=== PATIENT | male | born 1960 | race Two or more races ===

== ENCOUNTER 2025-03-28 17:24 | Inpatient (IN) | payer MEDICARE, SELFPAY ==
[2025-03-28] VITALS (7 sets, daily range): BP systolic 133–160; BP diastolic 76–98; PULSE 77–118; RESP 16–18; TEMP 36.3–37.1; O2SAT 94–97; BMI 31.2
--- NOTE | ~2025-03-28 | CT_ITS ---
CLINICAL HISTORY: L sided neck pain, severe odynophagia. CT soft tissue neck with contrast Comparison: None Findings: Fluid in the left carotid space is nonspecific. Differential considerations include fluid from adjacent vasculitis or thrombophlebitis. No definite adjacent venous thrombus defined by CT at this time. Additional adjacent fluid likely reflects cellulitis including deep and superficial to left platysma. Mild fasciitis also considered given mild thickening of the left-sided platysma. Mild soft tissue fullness of the imaged nasopharynx and oropharynx are nonspecific and may reflect cellulitis and/or pharyngitis. Otherwise, no exophytic mass of the imaged aerodigestive tract. No drainable parapharyngeal abscess by CT at this time. Severe opacification of multiple ethmoid air cells and essentially opacification of the maxillary sinuses. Differential considerations include acute on chronic sinusitis with bony remodeling and multifocal bone resorption. Bilateral nasal bone fractures appear old with anterior blunting. Imaged nasal septum fracture also old. Occlusion of the paranasal sinus outflows by CT. Trace right mastoid effusion. Metal artifacts from mouth noted. Calcified and noncalcified plaque include imaged aorta and its branches. Mild scarring in motion of the imaged lung apices. Mild left pleural thickening in the [id number]. Multiple bilateral cervical lymph nodes are nonspecific and likely reactive. Left level II node measures 1 cm short axis (imaged 158 of series 3). Mild reversal cervical lordosis with multifocal disc osteophyte complexes and facet arthropathy. Mild-moderate spinal stenosis at C5-C6 and C6-C7 with [id number] foraminal narrowing. Metal and lucencies associated with remaining imaged mandibular teeth. Anterior positioning of the temporomandibular joints without complete dislocation. Thyroid gland is partly obscured by artifacts but otherwise unremarkable. Submandibular glands and parotid glands are unremarkable. Mild motion about imaged orbits. IMPRESSION: 1. Soft tissue fullness including nasopharynx of the oropharynx is nonspecific. Differential considerations include cellulitis and pharyngitis. 2. No drainable parapharyngeal abscess at this time. 3. Fluid in the left carotid space is nonspecific and can be seen with vasculitis. Consider attention on follow-up to ensure resolution. This may be secondary to left-sided cellulitis of the neck. Mild fasciitis also considered given thickening of the left platysma. 4. Multiple cervical lymph nodes are nonspecific and may be reactive. Consider attention on 3 to six-month follow-up, if clinically indicated. Adjacent fluid is nonspecific and can be seen with cervical adenitis. Extra capsular spread not excluded by imaging and considered less likely at this time. This document has been electronically signed by: Rufino Jaeger MD on 03/28/2025 19:24:07
--- NOTE | 2025-03-28 17:41 | ED.HA ---
HPI - Headache General Chief Complaint: Weakness Stated Complaint: L side of neck swelling Time Seen by Provider: 03/28/25 17:36 History of Present Illness ED Provider: Ambrocio Wiley MD HPI Narrative: This is a 65-year-old male with about 1 week of discomfort in the left throat with swallowing now worsening to regional pain in the lateral neck/ear. No blunt or other injury of the neck. He denies fevers pain is increasing no drainage or malodorous breath. He has noticed a subtle voice change no difficulty breathing no coughing Related Data Allergies Allergy/AdvReac Type Severity Reaction Status Date / Time No Known Drug Allergies Allergy Unknown Verified 03/28/25 17:48 PMFSH Social History Social History Smoked in Last 30 Days: No Use of substances other than those prescribed or required for medical reasons: No Advance Directives: No Advance Directives Information Provided: Yes Physical Exam Vital Signs: Vital Signs: Last Vital Signs Temp 97.3 F 03/28/25 20:58 Pulse 77 03/28/25 20:58 Resp 16 03/28/25 20:58 BP 133/87 03/28/25 20:58 Pulse Ox 95 03/28/25 20:58 O2 Del Method Room Air 03/28/25 20:58 BMI result Body Mass Index 31.2 Const: Other: EXAM: Gen: Alert, awake, well appearing, well hydrated. Head: Atraumatic Eyes: Anicteric, Normal conjunctiva. ENT: Moist mucosa, no pallor. ?Neck is supple but he has tenderness with palpation over the left strap muscles. The trachea is midline difficult to view the posterior oropharynx but the uvula appears midline there is no petechia on the soft palate is normal. His voice sounds generally clear but he subjectively feels some subtle voice changes. No midline tenderness of the neck no bruising erythema or superficial rash or skin changes to the neck Neck: Supple. Respiratory: Breathing comfortably, No distress.Clear to auscultation bilaterally, symmetric chest expansion, No wheeze, rales, ronchi. Cardiovascular: Regular rate and rhythm. No murmurs or rub. Well perfused periphery, warm extremities. No edema. ? Abdominal: No FOCAL TENDERNESS. Soft, no objective distension. No palpable masses or obvious organomegaly. ?No guarding, no rebound tenderness or other peritoneal findings. : No flank tenderness. Neuro: Alert. Gross movement of all extremities intact. ? Psych: Calm. Cooperative. MSK: No grossly visible deformity. Vital signs: See flowsheet Medications Administered Generic Name Dose Route Start Last Admin Trade Name Fresebastian PRN Reason Stop Dose Admin Enoxaparin Sodium 40 mg 03/28/25 21:00 03/28/25 22:08 Enoxaparin Sodium 40 Mg/0.4 Ml Syringe SUBCUT 40 mg Q24H ESTHER Administration Insulin Human Lispro 0 unit 03/28/25 21:00 03/28/25 22:08 Insulin Lispro 100 Unit/Ml 3 Ml Vial SUBCUT Not Given QIDACHS [facility] Protocol Discontinued Medications Generic Name Dose Route Start Last Admin Trade Name Kenneth PRN Reason Stop Dose Admin Dexamethasone Sodium Phosphate 6 mg 03/28/25 20:55 03/28/25 21:32 Dexamethasone Sod Phosphate 4 Mg/Ml Vial IVPUSH 03/28/25 20:56 6 mg ONCE ONE Administration Sodium Chloride 1,000 mls @ 999 mls/hr 03/28/25 18:45 03/28/25 22:09 Ns IV 03/28/25 19:45 Infused .Q1H1M ESTHER Infusion Piperacillin Sod/Tazobactam 50 mls @ 100 mls/hr 03/28/25 19:36 03/28/25 22:09 Sod 3.375 gm/ Sodium Chloride IV 03/28/25 20:05 Infused ONCE ONE Infusion Vancomycin HCl 2,000 mg in 500 mls @ 250 mls/hr 03/28/25 19:36 03/28/25 20:58 Vancomycin/Ns IV 03/28/25 21:35 250 mls/hr ONCE ONE Administration Acetaminophen 1,000 mg in 100 mls @ 400 mls/hr 03/28/25 19:44 03/28/25 19:50 Ofirmev IV 03/28/25 19:58 400 mls/hr ONCE ONE Administration Iohexol 100 ml 03/28/25 19:01 03/28/25 19:01 Iohexol 350 Mg/Ml 100 Ml Infus..Btl IV 03/28/25 19:02 60 ml ONCE ONE Administration Morphine Sulfate 2 mg 03/28/25 20:05 03/28/25 20:48 Morphine Sulfate 2 Mg/Ml Cartridge IVPUSH 03/28/25 20:06 2 mg ONCE ONE Administration Protocol Medical Decision Making Medical Decision Making MDM Narrative: 65-year-old male with sore throat worsening for a week with left-sided neck discomfort. No outside signs of cellulitis or neck injury. Soft tissue neck ordered along with basic labs he has not ill or toxic looking on arrival and has no fever. Upon return of the CT results I have ordered now blood cultures, lactate. His CRP is elevated. We will presume this is bacterial complicated pharyngeal infection with involvement of the perivascular space near the left carotid and possible fasciitis. Given the proximity to the left carotid although he has no acute neurologic deficits or other symptoms I have consulted our vascular surgeon who reports this is not within his ability to help surgically and he recommends ENT consultation at transfer center. Differential Diagnosis Differential Diagnoses: The differential diagnosis associated with the presentation includes Strep throat, pharyngeal abscess, deep space infection of the neck, neck injury, lymphoma or malignancy Consult Healthcare Provider Management of the patient was discussed with: Pattern Maker Programer (Vascular surgery) Consulted ENT at [facility] Lab Data 03/28/25 18:08 03/28/25 18:08 Labs: Lab Results 03/28/25 03/28/25 Range/Units 18:08 20:13 WBC 10.1 (4.8-10.8) X10*3/uL RBC 4.86 (4.60-5.80) X10*6/uL Hgb 13.9 L (14.0-18.0) g/dl Hct 41.4 L (42.0-52.0) % MCV 85.2 (80.0-98.0) fL MCH 28.6 (27.0-33.0) pg MCHC 33.6 (31.0-36.0) g/dl RDW 12.5 (11.0-16.0) % Plt Count 275 (160-400) X10*3/uL MPV 9.6 (9.4-12.4) fL Immature Gran % (Auto) 0.4 (0.0-0.4) % Neut % (Auto) 71.4 (45-73) % Lymph % (Auto) 15.2 L (20-40) % [place] % (Auto) 9.6 (2-11) % Eos % (Auto) 3.1 (0-4) % Baso % (Auto) 0.3 (0-2) % Lymph # (Auto) 1.5 (1.2-4.9) X10*3/uL [place] # (Auto) 1.0 (0.1-1.2) X10*3/uL Eos # (Auto) 0.3 (0.0-0.4) X10*3/uL Baso # (Auto) 0.0 (0.0-0.2) X10*3/uL Abs Immat Gran (auto) 0.04 H (0.00-0.03) X10*3/uL Absolute Neuts (auto) 7.2 (2.0-8.3) x10*3/uL Absolute Nucleated RBC 0.000 (0.0-0.012) X10*3/uL Nucleated RBC % (auto) 0.0 (0.0-0.2) /100WBC Smear Tech's Comments VERIFIED Sodium 140 (135-145) mmol/L Potassium 4.1 (3.3-5.1) mmol/L Chloride 103 (96-108) mmol/L Carbon Dioxide 26 (22-29) mmol/L Anion Gap 15 (12-20) BUN 13 (9-16) mg/dL Creatinine 1.56 H (0.5-1.4) mg/dL Estim Creat Clear Calc 62.4 Estimated GFR 45 Random Glucose 147 H (60-115) mg/dL Lactic Acid 1.4 (0.5-2.0) mmol/L Calcium 9.2 (8.4-10.2) mg/dL Total Bilirubin 0.4 (0.0-1.0) mg/dL AST 36 (5-37) U/L ALT 30 (0-40) U/L Alkaline Phosphatase 242 H (39-117) U/L C-Reactive Protein 13.05 H (< or = 0.50) mg/dL Total Protein 7.8 (6.5-8.0) g/dL Albumin 3.7 (3.5-5.0) g/dL Radiology Impression Discussion of test interpretation with radiology: I have reviewed the radiologist's reading. Radiologist Impression: IMPRESSION: 1. Soft tissue fullness including nasopharynx of the oropharynx is nonspecific. Differential considerations include cellulitis and pharyngitis. 2. No drainable parapharyngeal abscess at this time. 3. Fluid in the left carotid space is nonspecific and can be seen with vasculitis. Consider attention on follow-up to ensure resolution. This may be secondary to left-sided cellulitis of the neck. Mild fasciitis also considered given thickening of the left platysma. 4. Multiple cervical lymph nodes are nonspecific and may be reactive. Consider attention on 3 to six-month follow-up, if clinically indicated. Adjacent fluid is nonspecific and can be seen with cervical adenitis. Extra capsular spread not excluded by imaging and considered less likely at this time. Prescription Management I considered prescription management with: Antibiotic Discharge Plan Discharge Clinical Impression: Pharyngitis, acute, Fasciitis
[2025-03-28 18:20] LABS: Basophils Percent Auto 0.3 % (0-2); Eosinophils Absolute Auto 0.3 X10*3/uL (0.0-0.4); Eosinophils Percent Auto 3.1 % (0-4); Hematocrit 41.4 % (42.0-52.0); Hemoglobin 13.9 g/dl (14.0-18.0); Imm Gran Abs Auto 0.04 X10*3/uL (0.00-0.03); Imm Gran Pct Auto 0.4 % (0.0-0.4); Lymphocytes Absolute Auto 1.5 X10*3/uL (1.2-4.9); Lymphocytes Percent Auto 15.2 % (20-40); MANUAL DIFF FLAG SCAN; Mean Corpuscular HGB Conc 33.6 g/dl (31.0-36.0); Mean Corpuscular Hemoglobin 28.6 pg (27.0-33.0); Mean Corpuscular Volume 85.2 fL (80.0-98.0); Monocytes Percent Auto 9.6 % (2-11); Neutrophils Absolute Auto 7.2 x10*3/uL (2.0-8.3); Neutrophils Percent Auto 71.4 % (45-73); PLT CLUMP 1; Red Blood Count 4.86 X10*6/uL (4.60-5.80); Red Cell Distribution Width 12.5 % (11.0-16.0); SCAN SMEAR FLAG 1
[2025-03-28 18:21] LABS: White Blood Count 10.1 X10*3/uL (4.8-10.8)
[2025-03-28 18:27] LABS: Alanine Aminotransferase 30 U/L (0-40); Albumin Level 3.7 g/dL (3.5-5.0); Alkaline Phosphatase 242 U/L (39-117); Anion Gap 15 (12-20); Aspartate Amino Transferase 36 U/L (5-37); Bilirubin Total 0.4 mg/dL (0.0-1.0); Blood Urea Nitrogen 13 mg/dL (9-16); C Reactive Protein 13.05 mg/dL (< or = 0.50); Calcium 9.2 mg/dL (8.4-10.2); Carbon Dioxide 26 mmol/L (22-29); Chloride 103 mmol/L (96-108); Creatinine Clr Calc Pharmacy 62.4; Estimated Glomerular Filt Rate 45; Glucose Random 147 mg/dL (60-115); Potassium 4.1 mmol/L (3.3-5.1); Sodium 140 mmol/L (135-145); Total Protein 7.8 g/dL (6.5-8.0)
--- NOTE | 2025-03-28 18:34 | PC.NURSE ---
Pt arrived to ED with EMS for reports of pain and swelling to left face/neck after cleaning ear with q-tip. Also reported to have pain in throat when swelling after eating and diff swallowing cow tounge approx 1 week ago. A/O x 3, no apparent s/s of distress. Pt able to take sips of water without difficulty. MD and geothermal powerplant supervisor at bedside. Labs collected and sent. Plans for CT
[2025-03-28 18:35] LABS: Mean Platelet Volume 9.6 fL (9.4-12.4); Platelet Count 275 X10*3/uL (160-400); SLIDE REVIEW VERIFIED
[2025-03-28] MEDS: 0.9 % Sodium Chloride 1,000 ML 999 ML IV (18:40)
[2025-03-28] MEDS: iohexoL 350 MG/ML 100 ML INFUS..BTL IV (19:01)
[2025-03-28] MEDS: Acetaminophen 1,000 MG/100 ML PIGGYBACK 400 MG IV (19:50)
[2025-03-28 20:35] LABS: Lactic Acid 1.4 mmol/L (0.5-2.0)
[2025-03-28] MEDS: Morphine Sulfate 2 MG/ML CARTRIDGE IVPUSH (20:48)
[2025-03-28] MEDS: Piperacillin Sodium/Tazobactam 3.375 GM in 0.9 % Sodium Chloride 50 ML IV (20:58)
[2025-03-28] MEDS: vancomycin/NS 2,000 MG/500 ML PLAST..BAG 250 MG IV (20:58)
--- NOTE | 2025-03-28 21:02 | PM.IMHP ---
History of Present Illness Date of Service: 03/28/25 Attending physician on admission: Dony Padgett Chief Complaint: left neck pain Pt is a 65 yo Vincentian-speaking male with a pmhx significant for IDDM, HFrEF, cardiomyopathy s/p CardioMEMS 03/18, pending ICD, CAD/multiple stents, COPD/asthma overlap, CKD ( baseline 1.8-2.2) and obesity, who presented to the ED due to L neck/face pain and swelling x1 week. he reports one choking episode a week ago while eating cow tongue and he was concerned it was still there. reports repeated episodes of choking this week and a mild sensation that something is stuck in the throat constantly. he denies any respiratory distress, no SOB, no fever, chills, nausea, or vomiting. He has had a a mild cough with yellow sputum. The patient is a poor historian. Review of Systems Constitutional: Constitutional: Denies chills, Denies fatigue, Denies fever(s) and Denies headache(s) Eyes: Eyes: Denies change in vision and Denies photophobia ENT: Denies headache(s), Denies nasal congestion, Denies nasal discharge and Reports sore throat Cardiovascular: Cardiovascular: Denies chest pain, Denies rapid heart rate, Denies leg edema, Denies lightheadedness and Denies dyspnea Respiratory: Respiratory: Denies chest congestion, Denies cough, Denies dyspnea and Denies wheezing Gastrointestinal: Gastrointestinal: Denies abdominal pain, Denies diarrhea, Denies nausea and Denies vomiting Genitourinary: Genitourinary: Denies dysuria, Denies urinary frequency and Denies urinary urgency Musculoskeletal: Musculoskeletal: Denies myalgias Integumentary/Breasts: Skin/Breast: Denies rash Neurologic: Denies confusion and Denies headache(s) Psychiatric: Psychiatric: Denies confusion Endocrine: Endocrine: Denies fatigue Hematologic/Lymphatic: Hematologic/Lymphatic: Denies easy bleeding and Denies easy bruising Allergic/Immunologic: Allergic/Immunologic: Denies wheezing PMFSH Functional capacity: independent ambulation Social History Smoked in Last 30 Days: No Use of substances other than those prescribed or required for medical reasons: No Advance Directives: No Advance Directives Information Provided: Yes Meds Allergies Allergy/AdvReac Type Severity Reaction Status Date / Time No Known Drug Allergies Allergy Unknown Verified 03/28/25 17:48 Active Medications: Current Medications Calcium Carbonate (Calcium Carbonate 750 Mg Tab.Chew) 750 mg PO Q4H PRN PRN Reason: Heartburn Dextrose (Dextrose 50 % 25 Gm/50 Ml Syringe) 25 gm IVPUSH Q15M PRN; Protocol PRN Reason: per Hypoglycemia Standing Ord. Enoxaparin Sodium (Enoxaparin Sodium 40 Mg/0.4 Ml Syringe) 40 mg SUBCUT Q24H ESTHER Glucose (Glucose Gel 15 Gm Gel..Gram.) 15 gm PO Q15M PRN; Protocol PRN Reason: per Hypoglycemia Standing Ord. Vancomycin HCl (Vancomycin/Ns) 2,000 mg in 500 mls @ 250 mls/hr IV ONCE ONE Stop: 03/28/25 21:35 Last Admin: 03/28/25 20:58 Dose: 250 mls/hr Piperacillin Sod/Tazobactam (Sod 3.375 gm/ Sodium Chloride) 50 mls @ 100 mls/hr IV Q6H ESTHER Acetaminophen (Ofirmev) 1,000 mg in 100 mls @ 400 mls/hr IV Q6H ESTHER Vancomycin HCl 750 mg/ Sodium (Chloride) 265 mls @ 265 mls/hr IV Q12H ESTHER Insulin Human Lispro (Insulin Lispro 100 Unit/Ml 3 Ml Vial) 0 unit SUBCUT QIDACHS [facility]; Protocol Magnesium Hydroxide (Milk Of Magnesia 30 Ml Oral.Susp) 30 ml PO DAILY PRN PRN Reason: Constipation Melatonin (Melatonin 3 Mg Tablet) 6 mg PO BEDTIME PRN PRN Reason: Insomnia Ondansetron HCl (Ondansetron Hcl 4 Mg/2 Ml Vial) 4 mg IVPUSH Q8H PRN PRN Reason: Nausea and Vomiting Oxycodone HCl (Oxycodone Hcl Immed Release 5 Mg Tablet) 5 mg PO Q6H PRN PRN Reason: Pain, Moderate(Pain Scale 4-6) Pharmacy Consult (Consult Rx Vancomycin Dosing) 1 each MISCELLANE DAILY PRN PRN Reason: Consult order Sodium Chloride (0.9 % Sodium Chloride Flush 3 Ml Syringe) 3 ml IVFLUSH QSHIFT [facility] Physical Exam Vital Signs and Narrative: Vital Signs: Last Vital Signs Temp 97.4 F 03/28/25 20:00 Pulse 100 03/28/25 20:00 Resp 16 03/28/25 20:48 BP 144/76 H 03/28/25 20:00 Pulse Ox 94 03/28/25 20:00 O2 Del Method Room Air 03/28/25 20:00 BMI result Body Mass Index 31.2 General: AOx3, no acute distress, slightl muffled voice. Seen with commercial construction project manager. Resp: CTA bilaterally, no wheezing, crackles or rhonchi HEENT: tenderness with palpation L side of neck. erythema posterior pharynx, no airway obstruction or obvious abscess CVS: S1, S2, RRR GI: +BS, NT, no distention Skin: Warm, dry Neuro: Cranial nerves II-XII grossly intact bilaterally. Motor grossly intact bilaterally Extremities: No LE edema Psych: Appropriate affect Const: General: No confusion Orientation/consciousness: No confusion Eyes: Direct Ophthalmoscopy: No photophobia Neuro: General: No confusion Results Labs 03/28/25 18:08 03/28/25 18:08 Labs: Laboratory Results - last 24 hr 03/28/25 03/28/25 18:08 20:13 MCV 85.2 MCH 28.6 MCHC 33.6 RDW 12.5 Plt Count 275 MPV 9.6 Immature Gran % (Auto) 0.4 Neut % (Auto) 71.4 Lymph % (Auto) 15.2 L Hodgeman % (Auto) 9.6 Eos % (Auto) 3.1 Baso % (Auto) 0.3 Lymph # (Auto) 1.5 Hodgeman # (Auto) 1.0 Eos # (Auto) 0.3 Baso # (Auto) 0.0 Abs Immat Gran (auto) 0.04 H Absolute Neuts (auto) 7.2 Absolute Nucleated RBC 0.000 Nucleated RBC % (auto) 0.0 Smear Tech's Comments VERIFIED Anion Gap 15 Estim Creat Clear Calc 62.4 Estimated GFR 45 Random Glucose 147 H Lactic Acid 1.4 Calcium 9.2 Total Bilirubin 0.4 AST 36 ALT 30 Alkaline Phosphatase 242 H C-Reactive Protein 13.05 H Total Protein 7.8 Albumin 3.7 Assessment and Plan (1) Pharyngitis, acute: Status: Acute (2) Fasciitis: Status: Acute (3) CKD (chronic kidney disease) stage 3, GFR 30-59 ml/min: Status: Acute (4) Class 1 obesity: Status: Acute Plan Pt is a 65 yo Vincentian-speaking male with a pmhx significant for IDDM, HFrEF, cardiomyopathy s/p CardioMEMS 03/18, pending ICD, CAD/multiple stents, COPD/asthma overlap, CKD ( baseline 1.8-2.2) and obesity, who presented to the ED due to L neck/face pain and swelling x1 week. acute pharyngitis/fascitis L neck - WBC 10.1, vital stable, lactic acid normal, no sepsis - CT Soft tissue neck with soft tissue fullness including nasopharynx of the oropharynx is nonspecific. Differential considerations include cellulitis and pharyngitis. No drainable pharyngeal abscess at this time. Fluid in the left carotid space is nonspecific and can be seen with vasculitis. Consider attention on follow-up to ensure resolution. This may be secondary to left-sided cellulitis of the neck. Mild fasciitis also consider given thickening of the left platysma. Multiple cervical lymph nodes are nonspecific and may be reactive. Consider attention on 3 to six-month follow-up if clinically indicated. Adjacent fluid is nonspecific and can be with cervical adenitis. Extracapsular spread not excluded by imaging and consider less likely at this time. - ED provider spoke with vascular here who states there is nothing to do at this time but recommended ENT consult - ENT consult at [facility] suggested will abscess, transfer not indicated. Treat with IV antibiotics and monitor. if drainable collection forms, can be transferred. - CRP elevated 13.5 - respiratory panel, rapid strep and throat culture pending - started on vancomycin and Zosyn in ED, continue - Decadron 6 mg x 1 dose - scheduled Tylenol IV q.6h - oxycodone as needed for increased pain - NPO - speech swallow eval - aspiration precautions - ID consult - monitor CBC and BMP CKD 3a - baseline creatinine 1.8-2.2, creatinine 1.56 - given 1 L IV fluids in ED - monitor BMP insulin-dependent diabetes - lantus 20U QAM, baseline basal insulin dose questionable, reveiewed recent [facility] records with 20U QAM - diabetic diet when off NPO - sliding scale insulin chronic HFrEF, no acute exacerbation - avoid additional IV fluids - resume home medications once reconciled CAD/cardiomyopathy - resume home meds once reconciled COPD/asthma overlap, no acute exacerbation class 1 obesity - BMI 31.2 - weight loss encouraged Full Code VTE prophylaxis: Lovenox ?pt on lovenox at baseline, cannot be confirmed at this time patient with acute pharyngitis / fasciitis left neck requiring admission for at least 2 midnight stay for IV antibiotics, steroids and monitoring. Quality Stroke Does the patient have a stroke diagnosis?: No VTE Prior VTE?: No VTE Risk Level:: Medical - moderate - high VTE Device Contraindication: Treatment Not Indicated VTE Drug Contraindication: N/A - Med Ordered
[2025-03-28] MEDS: dexAMETHasone sod phosphate 4 MG/ML VIAL 6 MG IVPUSH (21:32)
[2025-03-28] MEDS: Enoxaparin Sodium 40 MG/0.4 ML SYRINGE SUBCUT (22:08)
[2025-03-28 22:12] LABS: Glucose, Whole Blood 121 mg/dL (60-115)
[2025-03-29] VITALS (9 sets, daily range): BP systolic 129–166; BP diastolic 64–92; PULSE 61–85; RESP 16–18; TEMP 36.3–37.1; O2SAT 93–97; BMI 30.7
[2025-03-29] MEDS: Piperacillin Sodium/Tazobactam 3.375 GM in 0.9 % Sodium Chloride 50 ML IV ×4 (02:44→21:10)
[2025-03-29] MEDS: Acetaminophen 1,000 MG/100 ML PIGGYBACK 400 MG IV ×3 (02:44→14:04)
[2025-03-29] MEDS: oxyCODONE HCl Immed Release 5 MG TABLET PO ×2 (03:44→12:50)
--- NOTE | 2025-03-29 03:48 | PC.NURSE ---
independently, steadily stood at bedside and used urinal. evacuated about 375 mL dark yellow urine. back in bed, semi fowlers position. tolerated po oxy with water. requested new shirt/linens. call gu in reach
[2025-03-29 04:04] LABS: MANUAL DIFF FLAG NO
[2025-03-29 04:05] LABS: Basophils Percent Auto 0.3 % (0-2); Hematocrit 41.4 % (42.0-52.0); Hemoglobin 13.3 g/dl (14.0-18.0); Imm Gran Abs Auto 0.03 X10*3/uL (0.00-0.03); Imm Gran Pct Auto 0.4 % (0.0-0.4); Lymphocytes Absolute Auto 0.7 X10*3/uL (1.2-4.9); Lymphocytes Percent Auto 9.8 % (20-40); Mean Corpuscular HGB Conc 32.1 g/dl (31.0-36.0); Mean Corpuscular Hemoglobin 28.3 pg (27.0-33.0); Mean Corpuscular Volume 88.1 fL (80.0-98.0); Monocytes Absolute Auto 0.1 X10*3/uL (0.1-1.2); Monocytes Percent Auto 1.9 % (2-11); Neutrophils Absolute Auto 6.3 x10*3/uL (2.0-8.3); Neutrophils Percent Auto 87.6 % (45-73); Platelet Count 236 X10*3/uL (160-400); Red Cell Distribution Width 12.5 % (11.0-16.0); White Blood Count 7.2 X10*3/uL (4.8-10.8)
[2025-03-29 04:23] LABS: Anion Gap 15 (12-20); Blood Urea Nitrogen 14 mg/dL (9-16); Calcium 8.6 mg/dL (8.4-10.2); Carbon Dioxide 19 mmol/L (22-29); Chloride 106 mmol/L (96-108); Creatinine Clr Calc Pharmacy 61.6; Estimated Glomerular Filt Rate 44; Glucose Random 339 mg/dL (60-115); Potassium 4.3 mmol/L (3.3-5.1); Sodium 136 mmol/L (135-145)
[2025-03-29] MEDS: Insulin Lispro 100 UNIT/ML 3 ML VIAL 8 UNIT SUBCUT (05:56)
--- NOTE | 2025-03-29 05:57 | PC.NURSE ---
pt has been talking to on phone for about 30 mins. pt calm, states he is comfortable, needs are met, analgesia not needed at this time. informed of high blood glucose, gave lispro 8u. pt continues to talk on phone with in bed. call gu in reach.
--- NOTE | 2025-03-29 06:02 | PC.NURSE ---
giving lantus early per LUIS MIGUEL Sifuentes
[2025-03-29] MEDS: Insulin Glargine,Hum.rec.anlog 100 UNIT/ML 10 ML VIAL 20 UNIT SUBCUT (06:03)
[2025-03-29 07:42] LABS: IDNOW Serial# 58CA691E; Strep A Nucleic Acid Positive (Negative)
[2025-03-29 07:49] LABS: Glucose, Whole Blood 262 mg/dL (60-115)
[2025-03-29] MEDS: 0.9 % Sodium Chloride Flush 3 ML SYRINGE IVFLUSH ×2 (07:52→20:01)
[2025-03-29] MEDS: Insulin Lispro 100 UNIT/ML 3 ML VIAL SUBCUT ×4 (07:54→20:00)
[2025-03-29 09:33] LABS: Adenovirus PCR Not Detected (Not Detect.); Bordetella parapertussis PCR Not Detected (Not Detect.); Bordetella pertussis PCR Not Detected (Not Detect.); Chlamydia pneumoniae PCR Not Detected (Not Detect.); Coronavirus 229E PCR Not Detected (Not Detect.); Coronavirus HKU1 PCR Not Detected (Not Detect.); Coronavirus NL63 PCR Not Detected (Not Detect.); Coronavirus OC43 PCR Not Detected (Not Detect.); Human metapneumovirus PCR Not Detected (Not Detect.); Influenza A PCR Not Detected (Not Detect.); Influenza B PCR Not Detected (Not Detect.); Mycoplasma pneumoniae PCR Not Detected (Not Detect.); Parainfluenza 1 PCR Not Detected (Not Detect.); Parainfluenza 2 PCR Not Detected (Not Detect.); Parainfluenza 3 PCR Not Detected (Not Detect.); Parainfluenza 4 PCR Not Detected (Not Detect.); RSV PCR Not Detected (Not Detect.); Rhino/Enterovirus PCR Not Detected (Not Detect.)
[2025-03-29 09:39] LABS: Influenza A H1 PCR Not Detected (Not Detect.); Influenza A H1-2009 PCR Not Detected (Not Detect.); Influenza A H3 PCR Not Detected (Not Detect.); SARS-CoV-2 PCR Not Detected (Not Detect.)
[2025-03-29] MEDS: vancomycin HCL 750 MG in 0.9 % Sodium Chloride 250 ML 265 MG IV (09:46)
--- NOTE | 2025-03-29 10:00 | PHA.MEDREC ---
Pharmacy Consult ? Medication Reconciliation Pharmacy has completed the medication reconciliation. Patient poor historian but said he fills at [facility]. Spoke to raysa and she knew some of the medications but did say the patient was filling at [address] [id number]. Called and got list from pharmacy and confirmed med list with raysa via phone. Patient last took medications sun 06/1 am but doesnt know about trulicity
--- NOTE | 2025-03-29 10:33 | MHC.SL.SWA ---
Speech Pathologist Impression: Adequate oral phase, variable pharyngeal phase dysphagia secondary to acute pharyngitis/fascitis L neck Risk of Aspiration Due to: New onset pharyngeal dysphagia Sensation of globus Dysphasia Diet Status: Recc NDD3 with thin liquids, aspiration precautions: upright positioning during meal and for 30 minutes following intake, slow pacing, alternate consistencies Liquid Consistency and Strategies for Safe Swallow: Liquid Intake Recommendation: Thin Liquid Intake Strategies: Solid Food Consistency: Dietary Recommendations: Chopped/Advanced (NDD3) Additional Modifications to Solid Foods: Oral Medication Intake: Whole with Liquid Please contact the pharmacy regarding appropriate crushable or liquid drug formulations that are available whenever modified delivery is recommended. Compensatory Strategies and Precautions to be Taken for Safe Swallow: Supervision While Eating and Drinking for Safe Swallow: None Needed Foods to Avoid: Hard, sticky solids Swallowing Recommended Treatments: Recommendation for Speech: Further Testing Needed Outpatient Speech Therapy Modified Barium Swallow Study - Inpatient Comment: I6/2 nterpreter present during evaluation, CM entered room during clinical bedside swallow evaluation and observed. Pt alert, reporting hx of new onset dysphagia. Pt trialed with thin liquids, pureed and regular solids. Oral phase WNL: oral containment efficient, adequate bolus preparation/manipulation, timely coordination of anterior to posterior transit and trigger of pharyngeal swallow. Pharyngeal phase mildly compromised d/t swelling in L side of neck. Pt observed to employ effort when swallowing purees and boluses of solids. Pt endorsed sensation of globus s/p deglution. Voicing harsh but absent of wetness. Pt elicited cough x3 across length of evaluation, twice in absence of PO and once subsequent to trials. Pt endorsed post gustatory rhinitis. CAREER PORTALS TEACHER discussed results and recommendations with pt, who agreed. Pt consented to recommendation for MBSS (Modified Barium Swallow Study) while inpatient. CAREER PORTALS TEACHER provided education on physiological function of swallow mechanism, airway protection, anatomical structures associated with globus, and diet modifications through verbal means and visual referents. Pt verbalized understanding, agreed with POC. MD and RN texted through secure communication. CAREER PORTALS TEACHER conducting inpatient MBSS to notify team if/when pt can be evaluated through videoflueroscopy. CAREER PORTALS TEACHER inpatient tx indicated for dysphagia management, recc OP tx upon d/c. Frequency/Duration: Date Range for Service Req: Timeline to reassess: Final Expense Agent Clinican/Clinical Fellow: No Supervisory Statement: I have reviewed and agree with the student/clinical fellow's documentation: N/A Speech Language Pathologist: Denae Toussaint M.S., [facility]CAREER PORTALS TEACHER
--- NOTE | 2025-03-29 10:44 | MHC.CM.PN ---
IMM 03/29/25 Male lives with Assist with ADLS and AD for ambulation [employer] thru [employer] 32 hours a week. DME Walker Cane Grab bars in bathroom Leg brace PCP Denise Moses Patient declined the offer to document a HCP. DP home resume [employer] services. Patient will need assist with transport home.
[2025-03-29] MEDS: carvediloL 12.5 MG TABLET PO ×2 (10:52→20:00)
[2025-03-29 11:29] LABS: Glucose, Whole Blood 260 mg/dL (60-115)
--- NOTE | 2025-03-29 11:46 | MHC.SPEECHCO ---
Addendum entered and electronically signed by Rose Yin MA, CCC-HOME DAY CARE PROVIDER 03/30/25 08:33: Per Dr. Alvarado, difficulties appear to be secondary to strep throat and may potentially resolve with antibiotics. No concerns at this time for neurological cause, therefore MBSS is on hold for now. HOME DAY CARE PROVIDER to re-evaluate at bedside this a.m. Original Note: HOME DAY CARE PROVIDER recommending MBSS, order not yet received. Radiologist is not available this date, will need to defer exam for tomorrow 03/30.
[2025-03-29] MEDS: Ibuprofen 400 MG TABLET PO ×2 (11:54→16:57)
--- NOTE | 2025-03-29 14:54 | P.PNIM_ITS ---
Subjective Subjective Date of Service: 03/29/25 Interval History: seen and evaluated feels little better passed swallow eval with restrictions test positive for Strep pyogens no other events Review of Systems Review of Systems: Yes all other systems are reviewed and are negative Physical Exam 2 Vital Signs: Vital Signs: Last Vital Signs Temp 98.0 F 03/29/25 11:18 Pulse 81 03/29/25 11:18 Resp 16 03/29/25 11:18 BP 166/92 H 03/29/25 11:18 Pulse Ox 97 03/29/25 11:18 O2 Del Method Room Air 03/29/25 11:18 BMI result Body Mass Index 30.7 Const: Other: Constitutional : interactive, not in distress Neck; supple, midline trachea, clear voice, mild tenderness on left side Cardiovascular : no JVP, no lower extremity edema Respiratory : bilateral chest movement, not in resp distress Gastrointestinal: soft, lax, Non tender Skin : Warm, Dry Neurological : Alert & oriented , No focal deficit Objective Data Active Medications Calcium Carbonate (Calcium Carbonate 750 Mg Tab.Chew) 750 mg PO Q4H PRN PRN Reason: Heartburn Carvedilol (Carvedilol 12.5 Mg Tablet) 12.5 mg PO BID [facility]; Protocol Last Admin: 03/29/25 10:52 Dose: 12.5 mg Documented By: TITI Dextrose (Dextrose 50 % 25 Gm/50 Ml Syringe) 25 gm IVPUSH Q15M PRN; Protocol PRN Reason: per Hypoglycemia Standing Ord. Enoxaparin Sodium (Enoxaparin Sodium 40 Mg/0.4 Ml Syringe) 40 mg SUBCUT Q24H [facility] Last Admin: 03/28/25 22:08 Dose: 40 mg Documented By: LAFLAMC Glucose (Glucose Gel 15 Gm Gel..Gram.) 15 gm PO Q15M PRN; Protocol PRN Reason: per Hypoglycemia Standing Ord. Piperacillin Sod/Tazobactam (Sod 3.375 gm/ Sodium Chloride) 50 mls @ 100 mls/hr IV Q6H [facility] Last Infusion: 03/29/25 09:38 Dose: Infused Documented By: TITI Acetaminophen (Ofirmev) 1,000 mg in 100 mls @ 400 mls/hr IV Q6H [facility] Last Infusion: 03/29/25 14:25 Dose: Infused Documented By: TITI Vancomycin HCl 750 mg/ Sodium (Chloride) 265 mls @ 265 mls/hr IV Q12H [facility] Last Infusion: 03/29/25 10:47 Dose: Infused Documented By: TITI Ibuprofen (Ibuprofen 400 Mg Tablet) 400 mg PO TIDWM [facility] Last Admin: 03/29/25 11:54 Dose: 400 mg Documented By: TITI Insulin Glargine (Insulin Glargine,Hum.Rec.Anlog 100 Unit/Ml 10 Ml Vial) 20 unit SUBCUT DAILY [facility] Last Admin: 03/29/25 06:03 Dose: 20 unit Documented By: JAEL Comments: arelis goldberg Insulin Human Lispro (Insulin Lispro 100 Unit/Ml 3 Ml Vial) 0 unit SUBCUT QIDACHS [facility]; Protocol Last Admin: 03/29/25 11:56 Dose: 6 unit Documented By: TITI Levothyroxine Sodium (Levothyroxine Sodium 50 Mcg Tablet) 50 mcg PO DAILY@0600 [facility] Magnesium Hydroxide (Milk Of Magnesia 30 Ml Oral.Susp) 30 ml PO DAILY PRN PRN Reason: Constipation Melatonin (Melatonin 3 Mg Tablet) 6 mg PO BEDTIME PRN PRN Reason: Insomnia Omeprazole (Omeprazole 20 Mg Capsule.Dr) 20 mg PO DAILY@0630 [facility] Ondansetron HCl (Ondansetron Hcl 4 Mg/2 Ml Vial) 4 mg IVPUSH Q8H PRN PRN Reason: Nausea and Vomiting Oxycodone HCl (Oxycodone Hcl Immed Release 5 Mg Tablet) 5 mg PO Q6H PRN PRN Reason: Pain, Moderate(Pain Scale 4-6) Last Admin: 03/29/25 12:50 Dose: 5 mg Documented By: TL Pharmacy Consult (Consult Rx Vancomycin Dosing) 1 each MISCELLANE DAILY PRN PRN Reason: Consult order Sacubitril/Valsartan (Sacubitril/Valsartan 97/103 1 Tab Tablet) 1 tab PO BID [facility]; Protocol Sodium Chloride (0.9 % Sodium Chloride Flush 3 Ml Syringe) 3 ml IVFLUSH QSHIFT [facility] Last Admin: 03/29/25 07:52 Dose: 3 ml Documented By: DAVE Tamsulosin HCl (Tamsulosin Hcl 0.4 Mg Capsule) 0.4 mg PO DAILY [facility] Torsemide (Torsemide 20 Mg Tablet) 40 mg PO BID [facility]; Protocol Labs 03/29/25 03:55 03/29/25 03:55 Labs: Laboratory Results - last 24 hr 03/28/25 03/28/25 03/28/25 18:08 20:13 20:19 MCV 85.2 MCH 28.6 MCHC 33.6 RDW 12.5 Plt Count 275 MPV 9.6 Immature Gran % (Auto) 0.4 Neut % (Auto) 71.4 Lymph % (Auto) 15.2 L [place] % (Auto) 9.6 Eos % (Auto) 3.1 Baso % (Auto) 0.3 Lymph # (Auto) 1.5 [place] # (Auto) 1.0 Eos # (Auto) 0.3 Baso # (Auto) 0.0 Abs Immat Gran (auto) 0.04 H Absolute Neuts (auto) 7.2 Absolute Nucleated RBC 0.000 Nucleated RBC % (auto) 0.0 Smear Tech's Comments VERIFIED Anion Gap 15 Estim Creat Clear Calc 62.4 Estimated GFR 45 POC Glucose Random Glucose 147 H Lactic Acid 1.4 Calcium 9.2 Total Bilirubin 0.4 AST 36 ALT 30 Alkaline Phosphatase 242 H C-Reactive Protein 13.05 H Total Protein 7.8 Albumin 3.7 Respiratory Panel [facility] Adenovirus (Rapid PCR) B.pert (TEM-PCR) B.parapertussis DNA PCR C. pneumoniae DNA (PCR) Coronavirus OC43 (PCR) Coronavirus HKU1 (PCR) Coronavirus 229E (PCR) Coronavirus NL63 (PCR) Human Metapneumovir PCR Influenza A (RT-PCR) Influenza A (H1) PCR Influ A (H1/09) PCR Influenza A (H3) PCR Influenza B (RT-PCR) M. pneumoniae (PCR) Parainfluenza 1 (PCR) Parainfluenza 2 (PCR) Parainfluenza 3 (PCR) Parainfluenza 4 (PCR) RSV (PCR) Entero/Rhino (PCR) SARS-CoV-2 RNA (RT-PCR) S. pyogenes GrpA WANDA Positive A 03/28/25 03/28/25 03/29/25 21:42 22:08 03:55 MCV 88.1 MCH 28.3 MCHC 32.1 RDW 12.5 Plt Count 236 MPV 10.0 Immature Gran % (Auto) 0.4 Neut % (Auto) 87.6 H Lymph % (Auto) 9.8 L [place] % (Auto) 1.9 L Eos % (Auto) 0.0 Baso % (Auto) 0.3 Lymph # (Auto) 0.7 L [place] # (Auto) 0.1 Eos # (Auto) 0.0 Baso # (Auto) 0.0 Abs Immat Gran (auto) 0.03 Absolute Neuts (auto) 6.3 Absolute Nucleated RBC 0.000 Nucleated RBC % (auto) 0.0 Smear Tech's Comments Anion Gap 15 Estim Creat Clear Calc 61.6 Estimated GFR 44 POC Glucose 121 H Random Glucose 339 H Lactic Acid Calcium 8.6 D Total Bilirubin AST ALT Alkaline Phosphatase C-Reactive Protein Total Protein Albumin Respiratory Panel [facility] See Note Adenovirus (Rapid PCR) Not Detected B.pert (TEM-PCR) Not Detected B.parapertussis DNA PCR Not Detected C. pneumoniae DNA (PCR) Not Detected Coronavirus OC43 (PCR) Not Detected Coronavirus HKU1 (PCR) Not Detected Coronavirus 229E (PCR) Not Detected Coronavirus NL63 (PCR) Not Detected Human Metapneumovir PCR Not Detected Influenza A (RT-PCR) Not Detected Influenza A (H1) PCR Not Detected Influ A (H1/09) PCR Not Detected Influenza A (H3) PCR Not Detected Influenza B (RT-PCR) Not Detected M. pneumoniae (PCR) Not Detected Parainfluenza 1 (PCR) Not Detected Parainfluenza 2 (PCR) Not Detected Parainfluenza 3 (PCR) Not Detected Parainfluenza 4 (PCR) Not Detected RSV (PCR) Not Detected Entero/Rhino (PCR) Not Detected SARS-CoV-2 RNA (RT-PCR) Not Detected S. pyogenes GrpA WANDA 03/29/25 03/29/25 07:45 11:15 MCV MCH MCHC RDW Plt Count MPV Immature Gran % (Auto) Neut % (Auto) Lymph % (Auto) [place] % (Auto) Eos % (Auto) Baso % (Auto) Lymph # (Auto) [place] # (Auto) Eos # (Auto) Baso # (Auto) Abs Immat Gran (auto) Absolute Neuts (auto) Absolute Nucleated RBC Nucleated RBC % (auto) Smear Tech's Comments Anion Gap Estim Creat Clear Calc Estimated GFR POC Glucose 262 H 260 H Random Glucose Lactic Acid Calcium Total Bilirubin AST ALT Alkaline Phosphatase C-Reactive Protein Total Protein Albumin Respiratory Panel [place] Adenovirus (Rapid PCR) B.pert (TEM-PCR) B.parapertussis DNA PCR C. pneumoniae DNA (PCR) Coronavirus OC43 (PCR) Coronavirus HKU1 (PCR) Coronavirus 229E (PCR) Coronavirus NL63 (PCR) Human Metapneumovir PCR Influenza A (RT-PCR) Influenza A (H1) PCR Influ A (H1/) PCR Influenza A (H3) PCR Influenza B (RT-PCR) M. pneumoniae (PCR) Parainfluenza 1 (PCR) Parainfluenza 2 (PCR) Parainfluenza 3 (PCR) Parainfluenza 4 (PCR) RSV (PCR) Entero/Rhino (PCR) SARS-CoV-2 RNA (RT-PCR) S. pyogenes GrpA WANDA Assessment and Plan (1) Fasciitis: Status: Acute (2) Pharyngitis, acute: Status: Acute (3) Swallowing difficulty: Status: Acute Plan Pt is a 65 yo Uzbek-speaking male with a pmhx significant for IDDM, HFrEF, cardiomyopathy s/p CardioMEMS 03/18, pending ICD, CAD/multiple stents, COPD/asthma overlap, CKD ( baseline 1.8-2.2) and obesity, who presented to the ED due to L neck/face pain and swelling x1 week. acute pharyngitis w Strep throat and swallowing problem CT Soft tissue neck with soft tissue fullness including nasopharynx of the oropharynx is nonspecific. Differential considerations include cellulitis and pharyngitis. No drainable pharyngeal abscess at this time. Fluid in the left carotid space is nonspecific and can be seen with vasculitis. CT repeat in 3-6 month follow-up if clinically indicated. Vascular here who states there is nothing to do at this time but recommended ENT consult ENT consult at [facility] suggested will abscess, transfer not indicated. PEnding final cultures Continue Vancomycin and Zosyn Decadron 6 mg x 1 dose, to Hold Tylenol IV q.6h, switch to PO Ibuprofen TID oxycodone as needed for increased pain speech swallow eval, advance diet, consider ID consult Follow Vancomycin trough CKD 3a baseline creatinine 1.8-2.2, creatinine 1.56 monitor BMP insulin-dependent diabetes lantus 20U QAM, baseline basal insulin dose questionable, reveiewed recent [place] [facility] records with 20U QAM diabetic diet when off NPO sliding scale insulin chronic HFrEF, no acute exacerbation avoid additional IV fluids resume home medications once reconciled CAD/cardiomyopathy resume home meds once reconciled COPD/asthma overlap, no acute exacerbation class 1 obesity BMI 31.2 weight loss encouraged Full Code VTE prophylaxis: Lovenox patient with acute pharyngitis left neck requiring admission for IV antibiotics, and close monitoring overnight pending swallowing improvement Quality Stroke Does the patient have a stroke diagnosis?: No VTE Prior VTE?: No VTE Risk Level:: Medical - moderate - high VTE Device Contraindication: Treatment Not Indicated VTE Drug Contraindication: N/A - Med Ordered
[2025-03-29 16:43] LABS: Glucose, Whole Blood 295 mg/dL (60-115)
--- NOTE | 2025-03-29 17:08 | P.CNID_ITS ---
History of Present Illness Data of Consult Service Date: 03/29/25 Requesting physician: Jeannine Alvarado Primary Care Provider: ELROY Kaufman Reason for consult: left neck swelling He has swelling left side of neck for a week. He has some trouble swallowing. He has no exposure to rabid animal. He has no fever or chills PMFSH Family History Family history: reviewed and not pertinent Social History Social History Household Members: Spouse Housing: Apartment Do you presently have visiting nurse or other home services: Yes ([employer]PER[employer]) Patient Tobacco Use Status: Never used Tobacco e-Cigarette/Vaping Use: Never Used service: No Meds Allergies Allergy/AdvReac Type Severity Reaction Status Date / Time No Known Drug Allergies Allergy Unknown Verified 03/28/25 17:48 Active Medications: Current Medications Acetaminophen (Acetaminophen 325 Mg Tablet) 975 mg PO Q6H PRN PRN Reason: Pain, Moderate(Pain Scale 4-6) Calcium Carbonate (Calcium Carbonate 750 Mg Tab.Chew) 750 mg PO Q4H PRN PRN Reason: Heartburn Carvedilol (Carvedilol 12.5 Mg Tablet) 12.5 mg PO BID [facility]; Protocol Last Admin: 03/29/25 10:52 Dose: 12.5 mg Dextrose (Dextrose 50 % 25 Gm/50 Ml Syringe) 25 gm IVPUSH Q15M PRN; Protocol PRN Reason: per Hypoglycemia Standing Ord. Enoxaparin Sodium (Enoxaparin Sodium 40 Mg/0.4 Ml Syringe) 40 mg SUBCUT Q24H [facility] Last Admin: 03/28/25 22:08 Dose: 40 mg Glucose (Glucose Gel 15 Gm Gel..Gram.) 15 gm PO Q15M PRN; Protocol PRN Reason: per Hypoglycemia Standing Ord. Piperacillin Sod/Tazobactam (Sod 3.375 gm/ Sodium Chloride) 50 mls @ 100 mls/hr IV Q6H [facility] Last Infusion: 03/29/25 16:41 Dose: Infused Ibuprofen (Ibuprofen 400 Mg Tablet) 400 mg PO TIDWM [facility] Last Admin: 03/29/25 16:57 Dose: 400 mg Insulin Glargine (Insulin Glargine,Hum.Rec.Anlog 100 Unit/Ml 10 Ml Vial) 20 unit SUBCUT DAILY [facility] Last Admin: 03/29/25 06:03 Dose: 20 unit Insulin Human Lispro (Insulin Lispro 100 Unit/Ml 3 Ml Vial) 0 unit SUBCUT QIDACHS [facility]; Protocol Last Admin: 03/29/25 16:58 Dose: 6 unit Levothyroxine Sodium (Levothyroxine Sodium 50 Mcg Tablet) 50 mcg PO DAILY@0600 [facility] Magnesium Hydroxide (Milk Of Magnesia 30 Ml Oral.Susp) 30 ml PO DAILY PRN PRN Reason: Constipation Melatonin (Melatonin 3 Mg Tablet) 6 mg PO BEDTIME PRN PRN Reason: Insomnia Omeprazole (Omeprazole 20 Mg Capsule.Dr) 20 mg PO DAILY@0630 [facility] Ondansetron HCl (Ondansetron Hcl 4 Mg/2 Ml Vial) 4 mg IVPUSH Q8H PRN PRN Reason: Nausea and Vomiting Oxycodone HCl (Oxycodone Hcl Immed Release 5 Mg Tablet) 5 mg PO Q6H PRN PRN Reason: Pain, Moderate(Pain Scale 4-6) Last Admin: 03/29/25 12:50 Dose: 5 mg Sacubitril/Valsartan (Sacubitril/Valsartan 97/103 1 Tab Tablet) 1 tab PO BID [facility]; Protocol Sodium Chloride (0.9 % Sodium Chloride Flush 3 Ml Syringe) [address] [facility] Last Admin: 03/29/25 15:57 Dose: Not Given Tamsulosin HCl (Tamsulosin Hcl 0.4 Mg Capsule) 0.4 mg PO DAILY [facility] Torsemide (Torsemide 20 Mg Tablet) 40 mg PO BID [facility]; Protocol Home Medications ?Medication ?Instructions ?Recorded ?Confirmed ?Last Taken ?Type carvedilol 12.5 mg tablet 12.5 mg PO BID 03/29/25 03/29/25 Unknown History dulaglutide 0.75 mg/0.5 mL 0.75 mg subcut QWEEK 03/29/25 03/29/25 Unknown History subcutaneous pen injector (Trulicity) insulin aspart U-100 100 unit/mL 1 sliding scale dose subcut 03/29/25 03/29/25 Unknown History (3 mL) subcutaneous pen (Novolog USEASDIRECTD FlexPen U-100 Insulin aspart) insulin degludec 100 unit/mL (3 32 unit subcut DAILY 03/29/25 03/29/25 Unknown History mL) subcutaneous pen (Tresiba FlexTouch U-100 insulin) levothyroxine 50 mcg capsule 50 mcg PO DAILY 03/29/25 03/29/25 Unknown History pantoprazole 40 mg tablet,delayed 40 mg PO DAILY 03/29/25 03/29/25 Unknown History release sacubitril 97 mg-valsartan 103 mg 1 tab PO BID 03/29/25 03/29/25 Unknown History tablet (Entresto) tamsulosin 0.4 mg capsule 0.4 mg PO DAILY 03/29/25 03/29/25 Unknown History torsemide 20 mg tablet 40 mg PO BID 03/29/25 03/29/25 Unknown History Physical Exam 2 Vital Signs: Vital Signs: Last Vital Signs Temp 97.7 F 03/29/25 16:00 Pulse 61 03/29/25 16:00 Resp 18 03/29/25 16:00 BP 129/64 03/29/25 16:00 Pulse Ox 95 03/29/25 16:00 O2 Del Method Room Air 03/29/25 16:00 BMI result Body Mass Index 30.7 Neck: Other: mild discomfort ,no redness left neck Results Labs 03/29/25 03:55 03/29/25 03:55 Labs: Short CBC 03/28/25 03/29/25 Range/Units 18:08 03:55 WBC 10.1 7.2 (4.8-10.8) X10*3/uL Hgb 13.9 L 13.3 L (14.0-18.0) g/dl Hct 41.4 L 41.4 L (42.0-52.0) % Plt Count 275 236 (160-400) X10*3/uL [facility] 03/28/25 03/29/25 18:08 03:55 Sodium 140 136 Potassium 4.1 4.3 Chloride 103 106 Carbon Dioxide 26 19 L BUN 13 14 Creatinine 1.56 H 1.58 H Calcium 9.2 8.6 D Liver Function 03/28/25 Range/Units 18:08 Total Bilirubin 0.4 (0.0-1.0) mg/dL AST 36 (5-37) U/L ALT 30 (0-40) U/L Alkaline Phosphatase 242 H (39-117) U/L Albumin 3.7 (3.5-5.0) g/dL Assessment and Plan (1) Swallowing difficulty: Status: Acute (2) CKD (chronic kidney disease) stage 3, GFR 30-59 ml/min: Status: Acute (3) Pharyngitis, acute: Status: Acute Plan So far cultures negative. On Zosyn and no fever or leukocytosis. When oral po Augmentin for a week.
[2025-03-29 19:49] LABS: Glucose, Whole Blood 339 mg/dL (60-115)
[2025-03-29] MEDS: Enoxaparin Sodium 40 MG/0.4 ML SYRINGE SUBCUT (19:59)
[2025-03-29] MEDS: Sacubitril/Valsartan 97/103 1 TAB TABLET PO (20:00)
[2025-03-29] MEDS: Torsemide 20 MG TABLET 40 MG PO (20:01)
[2025-03-30] VITALS (7 sets, daily range): BP systolic 135–166; BP diastolic 70–89; PULSE 56–78; RESP 16–18; TEMP 36.3–36.8; O2SAT 93–98
[2025-03-30] MEDS: Piperacillin Sodium/Tazobactam 3.375 GM in 0.9 % Sodium Chloride 50 ML IV ×4 (03:07→21:48)
[2025-03-30] MEDS: Levothyroxine Sodium 50 MCG TABLET PO (05:40)
[2025-03-30] MEDS: Omeprazole 20 MG CAPSULE.DR PO (05:40)
[2025-03-30 05:44] LABS: MANUAL DIFF FLAG NO
[2025-03-30 05:48] LABS: Basophils Percent Auto 0.3 % (0-2); Eosinophils Absolute Auto 0.1 X10*3/uL (0.0-0.4); Eosinophils Percent Auto 0.7 % (0-4); Hematocrit 38.9 % (42.0-52.0); Hemoglobin 13.1 g/dl (14.0-18.0); Imm Gran Abs Auto 0.03 X10*3/uL (0.00-0.03); Imm Gran Pct Auto 0.3 % (0.0-0.4); Lymphocytes Absolute Auto 2.1 X10*3/uL (1.2-4.9); Lymphocytes Percent Auto 22.3 % (20-40); Mean Corpuscular HGB Conc 33.7 g/dl (31.0-36.0); Mean Corpuscular Hemoglobin 29.3 pg (27.0-33.0); Mean Platelet Volume 9.9 fL (9.4-12.4); Monocytes Absolute Auto 0.7 X10*3/uL (0.1-1.2); Neutrophils Absolute Auto 6.3 x10*3/uL (2.0-8.3); Neutrophils Percent Auto 68.4 % (45-73); Platelet Count 268 X10*3/uL (160-400); Red Blood Count 4.47 X10*6/uL (4.60-5.80); Red Cell Distribution Width 12.6 % (11.0-16.0); White Blood Count 9.2 X10*3/uL (4.8-10.8)
[2025-03-30 06:20] LABS: Anion Gap 14 (12-20); Blood Urea Nitrogen 21 mg/dL (9-16); Calcium 8.5 mg/dL (8.4-10.2); Carbon Dioxide 25 mmol/L (22-29); Chloride 104 mmol/L (96-108); Creatinine Clr Calc Pharmacy 53.9; Estimated Glomerular Filt Rate 38; Glucose Random 268 mg/dL (60-115); Potassium 3.8 mmol/L (3.3-5.1); Sodium 139 mmol/L (135-145)
[2025-03-30 07:37] LABS: Glucose, Whole Blood 236 mg/dL (60-115)
[2025-03-30] MEDS: Insulin Lispro 100 UNIT/ML 3 ML VIAL SUBCUT ×4 (08:18→21:49)
[2025-03-30] MEDS: Tamsulosin HCL 0.4 MG CAPSULE PO (08:18)
[2025-03-30] MEDS: 0.9 % Sodium Chloride Flush 3 ML SYRINGE IVFLUSH ×3 (08:19→23:46)
[2025-03-30] MEDS: Insulin Glargine,Hum.rec.anlog 100 UNIT/ML 10 ML VIAL 20 UNIT SUBCUT (08:19)
[2025-03-30 11:53] LABS: Glucose, Whole Blood 228 mg/dL (60-115)
--- NOTE | 2025-03-30 12:48 | MHC.SL.SWA ---
Speech Pathologist Impression: Pharyngeal dysphagia in presence of acute pharyngitis/fascitis L neck Dysphasia Diet Status: UPGRADE solids Liquid Consistency and Strategies for Safe Swallow: Liquid Intake Recommendation: Thin Solid Food Consistency: Dietary Recommendations: Regular Oral Medication Intake: Whole with Liquid Please contact the pharmacy regarding appropriate crushable or liquid drug formulations that are available whenever modified delivery is recommended. Compensatory Strategies and Precautions to be Taken for Safe Swallow: Sitting Upright (90 deg) Supervision While Eating and Drinking for Safe Swallow: Intermittent Supervision Recommendation for Speech: Further Testing Needed Outpatient Speech Therapy Modified Barium Swallow Study - Inpatient Comment: Recommend UPGRADE to REGULAR solids. Continue w/ thin liquids and pills whole w/ liquid or as preferred by patient. Recommend 1-2 f/u to ensure toleration of regular solids and determine if MBSS may be warranted. Spiral Winding Machine Helper Clinican/Clinical Fellow: No Supervisory Statement: I have reviewed and agree with the student/clinical fellow's documentation: N/A Speech Language Pathologist: Maura Panchal M.A., CCC-MODEL AND PATTERN SUPERVISOR
[2025-03-30 16:56] LABS: Glucose, Whole Blood 319 mg/dL (60-115)
--- NOTE | 2025-03-30 17:00 | HO.PM.IMPN ---
Subjective Subjective Date of Service: 03/30/25 Interval History: seen and evaluated feels little better passed swallow eval and advanced worsened kindey function test positive for Strep pyogens no other events Review of Systems Review of Systems: Yes all other systems are reviewed and are negative Physical Exam Vital Signs: Vital Signs: Last Vital Signs Temp 98.2 F 03/30/25 15:10 Pulse 78 03/30/25 15:10 Resp 16 03/30/25 15:10 BP 135/72 03/30/25 15:10 Pulse Ox 94 03/30/25 15:10 O2 Del Method Room Air 03/30/25 15:10 BMI result Body Mass Index 30.7 Const: Other: Constitutional : interactive, not in distress Neck; supple, midline trachea, clear voice, mild tenderness on left side Cardiovascular : no JVP, no lower extremity edema Respiratory : bilateral chest movement, not in resp distress Gastrointestinal: soft, lax, Non tender Skin : Warm, Dry Neurological : Alert & oriented , No focal deficit Objective Data Active Medications Acetaminophen (Acetaminophen 325 Mg Tablet) 975 mg PO Q6H PRN PRN Reason: Pain, Moderate(Pain Scale 4-6) Calcium Carbonate (Calcium Carbonate 750 Mg Tab.Chew) 750 mg PO Q4H PRN PRN Reason: Heartburn Carvedilol (Carvedilol 12.5 Mg Tablet) 12.5 mg PO BID [facility]; Protocol Last Admin: 03/30/25 08:21 Dose: Not Given Documented By: GRACIE Non-Admin Reason: HR 56 Dr. Alvarado made aware,primary RN Ch Dextrose (Dextrose 50 % 25 Gm/50 Ml Syringe) 25 gm IVPUSH Q15M PRN; Protocol PRN Reason: per Hypoglycemia Standing Ord. Enoxaparin Sodium (Enoxaparin Sodium 40 Mg/0.4 Ml Syringe) 40 mg SUBCUT Q24H [facility] Last Admin: 03/29/25 19:59 Dose: 40 mg Documented By: ODRISM Glucose (Glucose Gel 15 Gm Gel..Gram.) 15 gm PO Q15M PRN; Protocol PRN Reason: per Hypoglycemia Standing Ord. Piperacillin Sod/Tazobactam (Sod 3.375 gm/ Sodium Chloride) 50 mls @ 100 mls/hr IV Q6H [facility] Last Infusion: 03/30/25 16:40 Dose: Infused Documented By: TITI Insulin Glargine (Insulin Glargine,Hum.Rec.Anlog 100 Unit/Ml 10 Ml Vial) 20 unit SUBCUT DAILY [facility] Last Admin: 03/30/25 08:19 Dose: 20 unit Documented By: GRACIE Insulin Human Lispro (Insulin Lispro 100 Unit/Ml 3 Ml Vial) 0 unit SUBCUT QIDACHS [facility]; Protocol Last Admin: 03/30/25 12:26 Dose: 4 unit Documented By: TITI Levothyroxine Sodium (Levothyroxine Sodium 50 Mcg Tablet) 50 mcg PO DAILY@0600 [facility] Last Admin: 03/30/25 05:40 Dose: 50 mcg Documented By: SEBASTIÁN Magnesium Hydroxide (Milk Of Magnesia 30 Ml Oral.Susp) 30 ml PO DAILY PRN PRN Reason: Constipation Melatonin (Melatonin 3 Mg Tablet) 6 mg PO BEDTIME PRN PRN Reason: Insomnia Omeprazole (Omeprazole 20 Mg Capsule.Dr) 20 mg PO DAILY@0630 [facility] Last Admin: 03/30/25 05:40 Dose: 20 mg Documented By: SEBASTIÁN Ondansetron HCl (Ondansetron Hcl 4 Mg/2 Ml Vial) 4 mg IVPUSH Q8H PRN PRN Reason: Nausea and Vomiting Oxycodone HCl (Oxycodone Hcl Immed Release 5 Mg Tablet) 5 mg PO Q6H PRN PRN Reason: Pain, Moderate(Pain Scale 4-6) Last Admin: 03/29/25 12:50 Dose: 5 mg Documented By: TL Sacubitril/Valsartan (Sacubitril/Valsartan 97/103 1 Tab Tablet) 1 tab PO BID [facility]; Protocol Last Admin: 03/29/25 20:00 Dose: 1 tab Documented By: SEBASTIÁN Sodium Chloride (0.9 % Sodium Chloride Flush 3 Ml Syringe) 3 ml IVFLUSH QSHIFT [facility] Last Admin: 03/30/25 15:02 Dose: 3 ml Documented By: TITI Tamsulosin HCl (Tamsulosin Hcl 0.4 Mg Capsule) 0.4 mg PO DAILY [facility] Last Admin: 03/30/25 08:18 Dose: 0.4 mg Documented By: GRACIE Torsemide (Torsemide 20 Mg Tablet) 40 mg PO BID [facility]; Protocol Last Admin: 03/29/25 20:01 Dose: 40 mg Documented By: SEBASTIÁN Labs 03/30/25 05:31 03/30/25 05:31 Labs: Laboratory Results - last 24 hr 03/29/25 03/30/25 03/30/25 19:26 05:31 07:30 MCV 87.0 MCH 29.3 MCHC 33.7 RDW 12.6 Plt Count 268 MPV 9.9 Immature Gran % (Auto) 0.3 Neut % (Auto) 68.4 Lymph % (Auto) 22.3 [place] % (Auto) 8.0 Eos % (Auto) 0.7 Baso % (Auto) 0.3 Lymph # (Auto) 2.1 [place] # (Auto) 0.7 Eos # (Auto) 0.1 Baso # (Auto) 0.0 Abs Immat Gran (auto) 0.03 Absolute Neuts (auto) 6.3 Absolute Nucleated RBC 0.000 Nucleated RBC % (auto) 0.0 Anion Gap 14 Estim Creat Clear Calc 53.9 Estimated GFR 38 POC Glucose 339 H 236 H Random Glucose 268 H Calcium 8.5 03/30/25 03/30/25 11:44 16:52 MCV MCH MCHC RDW Plt Count MPV Immature Gran % (Auto) Neut % (Auto) Lymph % (Auto) [place] % (Auto) Eos % (Auto) Baso % (Auto) Lymph # (Auto) [place] # (Auto) Eos # (Auto) Baso # (Auto) Abs Immat Gran (auto) Absolute Neuts (auto) Absolute Nucleated RBC Nucleated RBC % (auto) Anion Gap Estim Creat Clear Calc Estimated GFR POC Glucose 228 H 319 H Random Glucose Calcium Microbiology Microbiology Results: Microbiology 03/28/25 20:35 Blood Culture - Preliminary Blood - Venous No growth after 24 hours. 03/28/25 20:35 Blood Culture - Preliminary Blood - Venous No growth after 24 hours. Assessment and Plan (1) Swallowing difficulty: Status: Acute (2) CKD (chronic kidney disease) stage 3, GFR 30-59 ml/min: Status: Acute (3) Pharyngitis, acute: Status: Acute Plan Pt is a 65 yo Upper Sorbian-speaking male with a pmhx significant for IDDM, HFrEF, cardiomyopathy s/p CardioMEMS 03/18, pending ICD, CAD/multiple stents, COPD/asthma overlap, CKD ( baseline 1.8-2.2) and obesity, who presented to the ED due to L neck/face pain and swelling x1 week. acute pharyngitis w Strep throat and swallowing problem improving CT Soft tissue neck with soft tissue fullness including nasopharynx of the oropharynx is nonspecific. Differential considerations include cellulitis and pharyngitis. No drainable pharyngeal abscess at this time. Fluid in the left carotid space is nonspecific and can be seen with vasculitis. For CT repeat in 3-6 month follow-up if clinically indicated. Vascular here who states there is nothing to do at this time but recommended ENT consult. ENT consult at [facility] suggested will abscess, transfer not indicated. PEnding final cultures dc Vancomycin Continue Zosyn Decadron 6 mg x 1 dose, to Hold Tylenol IV q.6h, switch to PO Ibuprofen TID oxycodone as needed for increased pain speech swallow eval, advance diet, consider ID consult appreciated, 1 week of Augmentin on discharge Follow Vancomycin trough worsening CKD 3a baseline creatinine 1.8-2.2, creatinine 1.78 monitor BMP insulin-dependent diabetes lantus 20U QAM, increase to 28 diabetic diet sliding scale insulin chronic HFrEF, no acute exacerbation avoid additional IV fluids resume home medications once reconciled CAD/cardiomyopathy resume home meds once reconciled COPD/asthma overlap, no acute exacerbation class 1 obesity BMI 31.2 weight loss encouraged Full Code VTE prophylaxis: Lovenox patient with acute pharyngitis left neck requiring admission for IV antibiotics, and close monitoring overnight pending swallowing improvement Quality Stroke Does the patient have a stroke diagnosis?: No VTE Prior VTE?: No VTE Risk Level:: Medical - moderate - high VTE Device Contraindication: Treatment Not Indicated VTE Drug Contraindication: N/A - Med Ordered
[2025-03-30 20:02] LABS: Glucose, Whole Blood 178 mg/dL (60-115)
[2025-03-30] MEDS: Enoxaparin Sodium 40 MG/0.4 ML SYRINGE SUBCUT (21:47)
[2025-03-30] MEDS: carvediloL 12.5 MG TABLET PO (21:48)
[2025-03-31 00:20] LABS: Glucose, Whole Blood 86 mg/dL (60-115)
[2025-03-31 03:30] LABS: Glucose, Whole Blood 161 mg/dL (60-115)
[2025-03-31 03:31] VITALS: BP 139/86; PULSE 67; RESP 18; TEMP 36.5; O2SAT 92
[2025-03-31] MEDS: Piperacillin Sodium/Tazobactam 3.375 GM in 0.9 % Sodium Chloride 50 ML IV ×2 (04:03→09:46)
[2025-03-31] MEDS: Omeprazole 20 MG CAPSULE.DR PO (06:13)
[2025-03-31] MEDS: Levothyroxine Sodium 50 MCG TABLET PO (06:14)
[2025-03-31] MEDS: oxyCODONE HCl Immed Release 5 MG TABLET PO ×2 (07:10→13:11)
[2025-03-31 07:15] LABS: Basophils Absolute Auto 0.1 X10*3/uL (0.0-0.2); Basophils Percent Auto 0.7 % (0-2); Eosinophils Absolute Auto 0.3 X10*3/uL (0.0-0.4); Eosinophils Percent Auto 4.2 % (0-4); Hematocrit 37.1 % (42.0-52.0); Hemoglobin 12.4 g/dl (14.0-18.0); Imm Gran Abs Auto 0.02 X10*3/uL (0.00-0.03); Imm Gran Pct Auto 0.3 % (0.0-0.4); Lymphocytes Absolute Auto 3.4 X10*3/uL (1.2-4.9); Lymphocytes Percent Auto 44.1 % (20-40); MANUAL DIFF FLAG SCAN; Mean Corpuscular HGB Conc 33.4 g/dl (31.0-36.0); Mean Corpuscular Hemoglobin 28.8 pg (27.0-33.0); Mean Corpuscular Volume 86.3 fL (80.0-98.0); Mean Platelet Volume 9.6 fL (9.4-12.4); Monocytes Absolute Auto 0.6 X10*3/uL (0.1-1.2); Monocytes Percent Auto 7.9 % (2-11); Neutrophils Absolute Auto 3.3 x10*3/uL (2.0-8.3); Neutrophils Percent Auto 42.8 % (45-73); Platelet Count 294 X10*3/uL (160-400); Red Cell Distribution Width 13.1 % (11.0-16.0); SCAN SMEAR FLAG 1; White Blood Count 7.7 X10*3/uL (4.8-10.8)
[2025-03-31 07:25] LABS: Anion Gap 15 (12-20); Blood Urea Nitrogen 19 mg/dL (9-16); Calcium 8.8 mg/dL (8.4-10.2); Carbon Dioxide 27 mmol/L (22-29); Chloride 105 mmol/L (96-108); Creatinine Clr Calc Pharmacy 57.4; Estimated Glomerular Filt Rate 41; Glucose Random 118 mg/dL (60-115); Potassium 3.7 mmol/L (3.3-5.1); Sodium 143 mmol/L (135-145)
[2025-03-31 07:31] VITALS: BP 149/81; PULSE 62; RESP 14; TEMP 36.4; O2SAT 95
[2025-03-31 07:42] LABS: Glucose, Whole Blood 118 mg/dL (60-115)
[2025-03-31 08:38] LABS: SLIDE REVIEW VERIFIED
[2025-03-31 09:42] VITALS: BP 148/82; PULSE 64
[2025-03-31] MEDS: Tamsulosin HCL 0.4 MG CAPSULE PO (09:42)
[2025-03-31] MEDS: carvediloL 12.5 MG TABLET PO (09:42)
[2025-03-31] MEDS: Insulin Glargine,Hum.rec.anlog 100 UNIT/ML 10 ML VIAL 28 UNIT SUBCUT (09:44)
[2025-03-31] MEDS: 0.9 % Sodium Chloride Flush 3 ML SYRINGE IVFLUSH (09:49)
--- NOTE | 2025-03-31 10:48 | P.DS_ITS ---
DS: Providers Provider Date of Service: 03/31/25 Date of admission: 03/28/25 20:51 Date of discharge: 03/31/25 Primary care physician: Cassandra Msoes PA-C Consults: 03/28/25 21:39 Consult to Infectious Diseases Routine Consulting Provider: [facility] Reason for consultation: pharyngitits, fascitis Has provider been notified: No DS: Diagnosis Discharge Diagnosis (1) Swallowing difficulty: Status: Acute (2) CKD (chronic kidney disease) stage 3, GFR 30-59 ml/min: Status: Acute (3) Pharyngitis, acute: Status: Acute (4) Fasciitis: Status: Acute DS: Summary Hospital Course Hospital Course: Admission note HPI Pt is a 65 yo [place]-speaking male with a pmhx significant for IDDM, HFrEF, cardiomyopathy s/p CardioMEMS 03/18, pending ICD, CAD/multiple stents, COPD/asthma overlap, CKD ( baseline 1.8-2.2) and obesity, who presented to the ED due to L neck/face pain and swelling x1 week. he reports one choking episode a week ago while eating cow tongue and he was concerned it was still there. reports repeated episodes of choking this week and a mild sensation that something is stuck in the throat constantly. he denies any respiratory distress, no SOB, no fever, chills, nausea, or vomiting. He has had a a mild cough with yellow sputum. The patient is a poor historian. Hospital course The patient was admitted to the hospital for evaluation and treatment of acute pharyngitis w Strep throat and swallowing problem as CT Soft tissue neck with soft tissue fullness including nasopharynx of the oropharynx is nonspecific. Differential considerations include cellulitis and pharyngitis. No drainable pharyngeal abscess at this time. Fluid in the left carotid space is nonspecific and can be seen with vasculitis. For CT repeat in 3-6 month follow-up if clinically indicated. Vascular here who states there is nothing to do at this time but recommended ENT consult. ENT consult at [facility] suggested will abscess, transfer not indicated. Treated with IV Vancomycin and Zosyn (Vancomycin Dcd later as strep throat came back positive). Blood cultures remained negative. received Tylenol IV q.6h, switched to PO, oxycodone as needed for increased pain speech swallow eval, advanced as swallowing improved back to baseline with no concerns. ID consulted and recommended 1 week of Augmentin on discharge Mildly worsening CKD 3a with baseline creatinine 1.8-2.2, creatinine improved to 1.78 resumed rest of his home medications during hospital stay. Discharge plan Continue Augmentin for 1 more week Take Tylenol for pain Time Attestation Discharge Coordination Time (in mins): 38 Quality: Safe Use of Opioids Does Pt have an Active Cancer Diagnosis on the Problem List?: No Quality: Stroke Does the patient have a stroke diagnosis?: No Physical Exam Vital Signs: Vital Signs: Last Vital Signs Temp 97.5 F 03/31/25 07:31 Pulse 64 03/31/25 09:42 Resp 14 03/31/25 07:31 BP 148/82 H 03/31/25 09:42 Pulse Ox 95 03/31/25 07:31 O2 Del Method Room Air 03/31/25 07:31 BMI result Body Mass Index 30.7 Const: Other: Constitutional : interactive, not in distress Neck; supple, midline trachea, clear voice, no more swelling or erythema Cardiovascular : no JVP, no lower extremity edema Respiratory : bilateral chest movement, not in resp distress Gastrointestinal: soft, lax, Non tender Skin : Warm, Dry Neurological : Alert & oriented , No focal deficit DS: Data Data Completed and Pending Labs on day of discharge: Laboratory Results - last 24 hr 03/30/25 03/30/25 03/30/25 11:44 16:52 19:36 WBC RBC Hgb Hct MCV MCH MCHC RDW Plt Count MPV Immature Gran % (Auto) Neut % (Auto) Lymph % (Auto) [place] % (Auto) Eos % (Auto) Baso % (Auto) Lymph # (Auto) [place] # (Auto) Eos # (Auto) Baso # (Auto) Abs Immat Gran (auto) Absolute Neuts (auto) Absolute Nucleated RBC Nucleated RBC % (auto) Smear Tech's Comments Sodium Potassium Chloride Carbon Dioxide Anion Gap BUN Creatinine Estim Creat Clear Calc Estimated GFR POC Glucose 228 H 319 H 178 H Random Glucose Calcium 03/31/25 03/31/25 03/31/25 00:15 03:23 06:55 WBC 7.7 RBC 4.30 L Hgb 12.4 L Hct 37.1 L MCV 86.3 MCH 28.8 MCHC 33.4 RDW 13.1 Plt Count 294 MPV 9.6 Immature Gran % (Auto) 0.3 Neut % (Auto) 42.8 L Lymph % (Auto) 44.1 H [place] % (Auto) 7.9 Eos % (Auto) 4.2 H Baso % (Auto) 0.7 Lymph # (Auto) 3.4 [place] # (Auto) 0.6 Eos # (Auto) 0.3 Baso # (Auto) 0.1 Abs Immat Gran (auto) 0.02 Absolute Neuts (auto) 3.3 Absolute Nucleated RBC 0.000 Nucleated RBC % (auto) 0.0 Smear Tech's Comments VERIFIED Sodium 143 Potassium 3.7 Chloride 105 Carbon Dioxide 27 Anion Gap 15 BUN 19 H Creatinine 1.68 H Estim Creat Clear Calc 57.4 Estimated GFR 41 POC Glucose 86 161 H Random Glucose 118 H Calcium 8.8 03/31/25 07:36 WBC RBC Hgb Hct MCV MCH MCHC RDW Plt Count MPV Immature Gran % (Auto) Neut % (Auto) Lymph % (Auto) [place] % (Auto) Eos % (Auto) Baso % (Auto) Lymph # (Auto) [place] # (Auto) Eos # (Auto) Baso # (Auto) Abs Immat Gran (auto) Absolute Neuts (auto) Absolute Nucleated RBC Nucleated RBC % (auto) Smear Tech's Comments Sodium Potassium Chloride Carbon Dioxide Anion Gap BUN Creatinine Estim Creat Clear Calc Estimated GFR POC Glucose 118 H Random Glucose Calcium Preliminary micro results at discharge 03/28/25 20:35 Blood Culture - Preliminary Blood - Venous No growth after 48 hours. 03/28/25 20:35 Blood Culture - Preliminary Blood - Venous No growth after [address] : Radiologist's impression: IMPRESSION: 1. Soft tissue fullness including nasopharynx of the oropharynx is nonspecific. Differential considerations include cellulitis and pharyngitis. 2. No drainable parapharyngeal abscess at this time. 3. Fluid in the left carotid space is nonspecific and can be seen with vasculitis. Consider attention on follow-up to ensure resolution. This may be secondary to left-sided cellulitis of the neck. Mild fasciitis also considered given thickening of the left platysma. 4. Multiple cervical lymph nodes are nonspecific and may be reactive. Consider attention on 3 to six-month follow-up, if clinically indicated. Adjacent fluid is nonspecific and can be seen with cervical adenitis. Extra capsular spread not excluded by imaging and considered less likely at this time. This document has been electronically signed by: Rufino Jaeger MD on 03/28/2025 19:24:07 Discharge Plan Discharge Anticipated Discharge Date/Time: 03/31/25 10:43 Patient Disposition: Home, Self-Care Discharge Diagnosis: Strep Throat PHaryngitis Referrals: Cassandra Moses PA-C [Primary Care Provider] - 1 Week Discharge Medications: New amoxicillin-pot clavulanate 400-57 mg/5 mL suspension for reconstitution 10 ml PO BID Qty: 140 0RF Continued carvedilol 12.5 mg Tablet 12.5 mg PO BID Rx Instructions: must administer with a meal/food torsemide 20 mg Tablet 40 mg PO BID tamsulosin 0.4 mg Capsule 0.4 mg PO DAILY pantoprazole 40 mg Tablet,Delayed Release (Dr/Ec) 40 mg PO DAILY insulin aspart U-100 [Novolog FlexPen U-100 Insulin] 100 unit/mL (3 mL) Insulin Pen 1 sliding scale dose SUBCUT USEASDIRECTD levothyroxine 50 mcg Capsule 50 mcg PO DAILY insulin degludec [Tresiba FlexTouch U-100] 100 unit/mL (3 mL) Insulin Pen 32 unit SUBCUT DAILY Trulicity 0.75 mg/0.5 mL Pen Injector 0.75 mg SUBCUT QWEEK Entresto 97-103 mg Tablet 1 tab PO BID Discharge Orders: Discharge Order (Routine); Ordered 03/31/25 Ordered By: Jeannine Alvarado Diet: Advance to usual diet Activity on Discharge: As tolerated Stand Alone Forms: Patient Portal Discharge page Print Language: Tuvaluan Care Plan Goals: Continue Augmentin for 1 more week Take Tylenol for pain Health Concerns: Pharyngitis Plan of Treatment: Antibiotics Assessment: as above
--- NOTE | 2025-03-31 11:01 | MHC.CM.PN ---
DP: PT HAS BEEN MEDICALLY CLEARED FOR DC HOME, NO SERVICES. PT WILL GO HOME ON [facility]
[2025-03-31 11:04] LABS: Glucose, Whole Blood 312 mg/dL (60-115)
[2025-03-31] MEDS: Insulin Lispro 100 UNIT/ML 3 ML VIAL SUBCUT (11:33)
[2025-03-31 12:00] VITALS: BP 146/79; PULSE 86; RESP 16; TEMP 37.1; O2SAT 96
== END 2025-03-31 13:22 | disposition home or self-care (01) | DRG 153 ==
LOC: HO.ED 19:23 → HO.EDOVER 21:36 → HO.S3 03-29 07:18
PROVIDERS: Admitting Provider Physician Assistant; Emergency Provider Emergency Medicine; PCP Physician Assistant; Visit Provider Student in an Organized Health Care Education/Training Program
DX: J02.0 Streptococcal pharyngitis (principal); I50.22 Chronic systolic (congestive) heart failure; Z95.811 Presence of heart assist device; N18.31 Chronic kidney disease, stage 3a; M72.8 Other fibroblastic disorders; J44.9 Chronic obstructive pulmonary disease, unspecified; E66.811 Obesity, class 1; Z71.3 Dietary counseling and surveillance; Z68.30 Body mass index [BMI] 30.0-30.9, adult; E11.22 Type 2 diabetes mellitus with diabetic chronic kidney disease; I25.10 Atherosclerotic heart disease of native coronary artery without angina pectoris; Z95.5 Presence of coronary angioplasty implant and graft; Z79.4 Long term (current) use of insulin; Z79.85 Long-term (current) use of injectable non-insulin antidiabetic drugs; Z79.890 Hormone replacement therapy; Z79.899 Other long term (current) drug therapy
CPT/HCPCS: 36415; 70491; 80048; 80053; 82947; 83605; 85025; 86140; 87040; 87070; 87633; 87651; 92526; 92610; 99285; J0131; J1100; J1650; J2270; J2543; J3370; Q9967

== ENCOUNTER → 2025-03-28 17:49 | Outpatient (BNV) | payer MEDICARE, SELFPAY | PROVIDERS: Emergency Provider Emergency Medicine; Visit Provider Radiology Neuroradiology | DX: I77.82 Antineutrophilic cytoplasmic antibody [ANCA] vasculitis (principal) | CPT/HCPCS: 70491 ==

== ENCOUNTER → 2025-03-28 20:51 | Outpatient (BNV) | payer MEDICARE, SELFPAY | PROVIDERS: Admitting Provider Physician Assistant; Emergency Provider Emergency Medicine; PCP Physician Assistant; Visit Provider Internal Medicine | DX: N18.30 Chronic kidney disease, stage 3 unspecified (principal); R13.10 Dysphagia, unspecified; J02.9 Acute pharyngitis, unspecified | CPT/HCPCS: 99232 ==

== ENCOUNTER → 2025-03-28 20:51 | Outpatient (BNV) | payer MEDICARE, SELFPAY | PROVIDERS: Admitting Provider Physician Assistant; Emergency Provider Emergency Medicine; Visit Provider Physician Assistant | DX: R13.10 Dysphagia, unspecified (principal); N18.30 Chronic kidney disease, stage 3 unspecified; J02.9 Acute pharyngitis, unspecified; M72.9 Fibroblastic disorder, unspecified | CPT/HCPCS: 99223; 99232; 99239 ==

== ENCOUNTER 2025-05-19 15:28 | Inpatient (IN) | payer OTHER, SELFPAY ==
--- OUTSIDE RECORDS SUMMARY | 2024-04-02 06:49 | XMS_ITS | Continuity of Care Document ---
Author Organization [facility] Address [address] [address] Phone Care Team Providers Care School Examiner Name Role Phone Shelly Horvath OT Unavailable Unavailable Advance Directives Directive Yes / No Effective Date File Name No Information Encounters Encounter Description Practice Location Reason(s) For Visit Diagnoses Date Provider [facility], [address] [address], [place], [place], [id number], [place] tel:[phone] [facility] No Information 2023 Alexandru Bravo. [address], [place], [id number], [place]. tel:[phone] Family History Family Member Type Diagnosis Age [...]
--- NOTE | ~2025-05-19 | XR_ITS ---
CLINICAL HISTORY: cough 1 view chest x-ray Comparison: None provided Findings: Mild patchy bilateral perihilar and left basilar opacity. Normal size heart. No acute fracture. IMPRESSION: Bilateral pneumonia. This document has been electronically signed by: Han Quick MD on 05/19/2025 20:13:57
--- NOTE | ~2025-05-19 | XR_ITS ---
CLINICAL HISTORY: Ulcer,, erythema, rule out osteomyelitis 3 view [id number] toe Comparison: None provided Findings: There is a 10 mm diameter erosion involving the distal tuft of the 1st digit. 1st tarsometatarsal joint arthrodesis screw is present with surrounding lucency. No significant loss of joint space or osteophytes. No erosions. No radiopaque foreign body. IMPRESSION: 1. 1st digit erosion, indicating osteomyelitis. 2. Lucency surrounding the 1st tarsometatarsal joint arthrodesis screw, possibly indicating infection or loosening. This document has been electronically signed by: Han Quick MD on 05/19/2025 20:15:46
--- NOTE | ~2025-05-19 | US_ITS ---
CLINICAL HISTORY: swelling, concern for DVT Venous duplex ultrasound left lower extremity Comparison: None provided Findings: The visualized deep veins are fully compressible with normal Doppler color flow and spectral tracings. No popliteal cyst. IMPRESSION: 1. Negative for left lower extremity deep vein thrombosis. This document has been electronically signed by: Han Quick MD on 05/19/2025 18:40:01
[2025-05-19 16:15] VITALS: BP 140/74; BP 184/98; PULSE 110; PULSE 69; RESP 16; TEMP 37; O2SAT 96; BMI 35.0
--- OUTSIDE RECORDS SUMMARY | 2025-05-19 17:25 | XMS_ITS | Clinical Summary ---
Author Organization [facility] Address [address] [place] [address] Care Team Providers Care Extracting Machine Operator Name Role Phone Cassandra Moses PA-C Primary Care Provider [phone] Source Comments PLEASE NOTE, if this patient is a minor, it may be UNLAWFUL to discuss sensitive information that is contained in these records (such as FAMILY PLANNING, MENTAL HEALTH or SUBSTANCE ABUSE) with the minor patient's parent or other person without the patient's specific authorization.[facility] Allergies Active Allergy Reactions Criticality Noted Date Comments Beans 01/29/2025 Medications albuterol HFA 90 mcg/actuation inhaler Inhale 2 Puffs into the lungs every 4 (four) hours as needed for shortness of breath or wheezing 54 Unspecified 2 04/16/20 23 Active albuterol (PROVENTIL) 2.5 mg /3 mL (0.083 %) nebulizer solution Take 3 mL by nebulization every 6 (six) hours as needed for wheezing 75 mL 04/16/20 23 Active MISCELLANEOUS MEDICAL SUPPLY [facility] home care services as needed 1 Each 07/24/20 23 Active MISCELLANEOUS MEDICAL SUPPLY MISCIndications :Left leg pain,Left foot drop by miscellaneous route daily. Left foot AFO. Please sent to [facility]. Fax - [phone]. BMI 32.56 1 Each 11/29/19 24 Active MISCELLANEOUS MEDICAL SUPPLY MISCIndications :Weakness by miscellaneous route daily. Rolator 4 wheels with seat walker. BMI 32.56. Lifetime need. 1 Each 11/29/19 24 Active fluticasone (FLONASE) 50 mcg/actuation nasal spray USE 1 SPRAY IN EACH NOSTRIL TWO TIMES A DAY Prescribed By: SHASTA PARKINSON MD 11/05/19 24 Active atorvastatin (LIPITOR) 80 mg tabletIndicatio ns:Type 2 diabetes mellitus without complication, with long-term current use of insulin ([facility]),Essent ial (primary) hypertension Take 1 Tablet by mouth nightly at bedtime 90 Tablet 1 12/25/19 24 Active ONETOUCH VERIO REFLECT METER monitoring kit USE DIRECTED FOUR TIMES A DAYS Authorized by: LUIS EDUARDO PARKINSON MD 01/25/20 24 Active ONETOUCH DELICA PLUS LANCET 33 gauge USE FOUR TIMES A DAY (BEFORE MEALS AND AT BEDTIME) Authorized by: LUIS EDUARDO PARKINSON MD 01/25/20 24 Active TRELEGY ELLIPTA 200-62.5-25 mcg dsdv Inhale 1 puff daily. Authorized by: STEPHANIE PATTERSON 01/29/20 24 Active gabapentin (NEURONTIN) 100 mg capsuleIndicati ons:Left leg pain Take 1 Capsule by mouth 3 (three) times daily 90 Capsule 1 03/13/20 24 Active GAVILAX 17 gram/dose powder Take 17 g by mouth once daily DISSOLVE 17 GRAMS INTO LIQUID AND DRINK DAILY. Prescribed By: JUAN JOSÉ GARZA 510 g 03/13/20 24 Active melatonin 1 mg tablet Take 1 Tablet by mouth nightly at bedtime as needed for sleep for up to 30 days 30 Tablet 03/13/20 24 Active MISCELLANEOUS MEDICAL SUPPLY MISCIndications :Type 2 diabetes mellitus without complication, with long-term current use of insulin ([facility]),Essent ial (primary) hypertension,At risk for falling,Diabeti c feet ([facility]) by miscellaneous route daily. Diabetic shoes size 11.5 for daily use. BMI 32.61. Life time need it. 1 Each 03/13/20 24 Active ARIPiprazole (ABILIFY) 2 mg tabletIndicatio ns:Mild cognitive impairment TOME 1 TABLETA POR VIA ORAL TODOS [place] 90 Tablet 05/28/20 24 Active clotrimazole (LOTRIMIN) 1 % cream Authorized by: ONOFRE DUNLAP 06/06/20 24 Active MISCELLANEOUS MEDICAL SUPPLY MISCIndications :Type 2 diabetes mellitus without complication, with long-term current use of insulin ([facility]),Essent ial (primary) hypertension,At risk for falling,Diabeti c feet ([facility]) by miscellaneous route daily. Diabetic shoes size 11.5 for daily use. Diagnosis diabetes, obesity. Length of need 99 months 1 Each 10/27/20 Active pen needle, diabetic 31 gauge x 5/16 ndleIndications :Type 2 diabetes mellitus with hyperglycemia, with long-term current use of insulin ([facility]) To inject insulin 4 times daily. 100 Each 11/06/19 Active blood-glucose sensor (FREESTYLE MAIDA 3 PLUS SENSOR) deviIndications :Type 2 diabetes mellitus with hyperglycemia, with long-term current use of insulin ([facility]) Place 1 sensor to back of upper arm every 15 days. Use to monitor blood sugar continuously (Freestyle Maida 3 Plus) 2 Each 11/20/19 Active blood-glucose meter,continuou s (FREESTYLE MAIDA 3 READER) miscIndications :Type 2 diabetes mellitus with hyperglycemia, with long-term current use of insulin ([facility]) 1 Units by miscellaneous route daily. To check BS daily. 1 Each 11/20/19 Active blood sugar diagnostic stripsIndicatio ns:Type 2 diabetes mellitus with hyperglycemia, with long-term current use of insulin ([facility]) 1 Each 4 (four) times daily Precision Justin test Strips to check sugar 4 times a day. Pt wants home delivery of his sensor/test strips. 100 Each 11/20/19 25 Active insulin lispro 100 unit/mL injection penIndications: Uncontrolled type 2 diabetes mellitus with hypoglycemia without coma ([facility]) SLIDING SCALE 3 times a day 100-149: 15 units, 150-199: 18 units, 200-249: 21 units, 250-299: 24 units, 300-349: 27 units, 350-399: 30 units. 15 mL 1 12/12/19 25 Active tamsulosin (FLOMAX) 0.4 mg 24 hr capsuleIndicati ons:Difficulty in voiding TOME LLOYD CAPSULA TODOS [place] POZO 90 Capsule 1 12/22/19 25 Active TRESIBA FLEXTOUCH U-100 100 unit/mL (3 mL)Indications: Uncontrolled type 2 diabetes mellitus with hypoglycemia without coma ([facility]) INJECT 32 UNITS INTO THE SKIN EVERY MORNINGStrength: 100 unit/mL (3 mL) 15 mL 1 01/30/20 25 Active ENTRESTO 97-103 mg tabIndications: Congestive heart failure, unspecified HF chronicity, unspecified heart failure type ([facility]) TOME 1 TABLETA POR VIA ORAL DOS VECES AL ADELSO 180 Tablet 1 02/02/20 25 Active torsemide (DEMADEX) 20 mg tabletIndicatio ns:Congestive heart failure, unspecified HF chronicity, unspecified heart failure type ([facility]) TAKE 2 TABLETS POR VIA ORAL DOS VECES AL ADELSO 360 Tablet 1 04/07/20 25 Active pantoprazole (PROTONIX) 40 mg EC tabletIndicatio ns:Gastroesopha geal reflux disease without esophagitis TOME 1 TABLETA POR VIA ORAL TODOS [place] 90 Tablet 1 04/07/20 25 Active carvediloL (COREG) 12.5 mg tabletIndicatio ns:Congestive heart failure, unspecified HF chronicity, unspecified heart failure type ([facility]),Hypert ension, essential TOME LLOYD TABLETA 2 VECES AL ADELSO CON LAS COMIDAS 180 Tablet 1 04/07/20 25 Active levothyroxine 50 mcg tabletIndicatio ns:Hypothyroidi sm, unspecified type TOME 1 TABLETA POR VIA ORAL TODOS LOS POZO. 84 Tablet 2 04/14/20 25 Active dulaglutide (TRULICITY) 1.5 mg/0.5 mL pen injectorIndicat ions:Type 2 diabetes mellitus with hyperglycemia, with long-term current use of insulin ([facility]) Inject 1.5 mg into the skin once a week. 2 mL 2 05/03/20 25 Active dulaglutide (TRULICITY) 0.75 mg/0.5 mL pen injectorIndicat ions:Type 2 diabetes mellitus with hyperglycemia, with long-term current use of insulin ([facility]) Inject 0.75 mg into the skin once a week 2 mL 1 03/14/20 25 025 Disconti nued(Jabier ntity/Do kerry and/or Sig change) Active Problems Problem Noted Date Diagnosed Date Class 1 obesity due to exces s calories with serious comorbidity and body mass index (BMI) of 30.0 to 30.9 in adult 12/23/2023 PTSD (post-traumatic stress disorder) 07/05/2022 Generalized anxiety disorder 05/09/2022 Constipation 04/18/2022 Exacerbation of asthma ([facility]) 04/18/2022 Gout 04/18/2022 Hypothyroidism 04/18/2022 Type 2 diabetes mellitus wit h hyperglycemia, with long-term current use of insulin ([facility]) 04/18/2022 Congestive heart failure ([facility]) 022 Elevated prostate specific antigen (PSA) 022 Pneumonia due to coronavirus disease 2019 (CODE) 02/04/2022 Acute kidney failure, unspecified ([facility] V[facility]) 01/31/2022 Essential (primary) hypertension 01/31/2022 Stage 3 chronic kidney disease ([facility]) 0 01/31/2022 Encounters Date Type Department Care Team Description 04/29/2025 3:40 PM EDT Interim Notes [facility] [address] [place] [phone] 04/29/2025 3:20 PM EDT Office Visit [address] [phone] Nikolai Stephenson, PharmD Jesenia Sampson 03/14/2025 Interim Notes [address] [phone] Cassandra Moses PA-C 03/12/2025 Results Follow-Up [facility] [address] [place] [address] Nikolai Stephenson, PharmD 03/11/2025 11:00 AM EDT Office Visit [address] [phone] Nikolai Stephenson, PharmD Kelley Hernandez 03/04/2025 Interim Notes [address] [phone] Herman Corrigan MA from Last 3 Months Immunizations Immunization Administration Dates Next Due Influenza (FLUBLOK),recombin ant,injectable,preservative Free 07/21/2024 Social History Tobacco Use Types Packs/Day Years Used Date Smoking Tobacco: Every Day Cigarettes Passive Smoke Exposure: Never Smokeless Tobacco: Never Tobacco Cessation:Ready to Q uit: Not Asked; Counseling Given: Not Answered Alcohol Use Standard Drinks/Week Comments Never 0 (1 standard drink = 0.6 oz pur e alcohol) Social Connections Answer Date Recorded How often do you feel lonely or isolated from th ose around you? 1 12/21/2024 Financial Resource Strain Answer Date R ecorded Hard to pay for: Food 1 12/21/2024 Stress Answer Date Recorded Do you feel these kinds of stress these days? 12/21/2024 Physical Activity Answer Date Recorded Physical Activity 0 03/01/2022 Food Insecurity Answer Date Recorded Hard to pay for: Food 1 12/21/2024 Transportation Needs Answer Date Record ed Hard to pay for: Transportation 1 12/21/2024 Housing Stability Answer Date Recorded Hard to pay for: Rent/Mortgage payment 1 12/21/2024 Safety and Environment Answer Date Kike rded Safety 0 03/01/2022 Utilities Answer Date Recorded Hard to pay for: Utilities 1 12/21 Employment Answer Date Recorded Stress 0 11/29/2023 Sex and Gender Information Value Date Recorded Sex Assigned at Male 03/01/2022 7:01 AM PDT Legal Sex Male 8:46 AM PST Gender Identity Male 03/01/2022 7:01 AM PDT Sexual Orientation Straight 03/01/2022 7: 01 AM PDT Last Filed Vital Signs Vital Sign Reading Time Taken Comments Blood Pressure 130/84 04/29/2025 3:14 PM EDT Pulse 88 04/29/2025 3:14 PM EDT Temperature 37.1 C (98.7 F) 03/11/2025 10:40 AM EDT Respiratory Rate 20 04/29/2025 3:14 PM EDT Oxygen Saturation 98% 03/11/2025 10:40 AM EDT Inhaled Oxygen Concentration - - Weight 108.4 kg (239 lb) 04/29/2025 3:14 PM EDT Height 188 cm (6' 2.02 ) 04/29/2025 3:14 PM EDT Body Mass Index 30.67 04/29/2025 3:14 PM EDT Plan of Treatment Upcoming Encounters Date Type Department Care Team (Late st Contact Info) Description 06/09/2025 8:10 AM EDT Interim Notes [address] [phone] 06/09/2025 9:00 AM EDT Office Visit [address] [phone] Didi Stein PA-C [address] [place] [phone] 06/09/2025 9:40 AM EDT Interim Notes [address] [phone] 06/17/2025 2:30 PM EDT Interim Notes [address] [phone] 06/17/2025 3:00 PM EDT Office Visit [address] [phone] AntilNikolai, PharmD [address] [place] [address] 06/17/2025 3:20 PM EDT Interim Notes [address] [phone] Health Maintenance Due Date Last Done Comments Anxiety Screening 1960 Dental FMX/Pano 1960 Medicare Annual Wellness Visit 02/22/1978 Imm-DTaP/Tdap/Td (1 - Tdap) 02/22/1979 Imm-Pneumococcal 50+ (1 of 2 - PCV) 02/22/1979 CT Colonography 02/22/2005 Colonoscopy 02/22/2005 Colorectal Cancer Screening 02/22/2005 FIT/gFOBT 02/22/2005 Fecal DNA 02/22/2005 Flexible Sigmoidoscopy 02/22/2005 Imm-Zoster, Recombinant (1 of 2) 02/22/2010 [id number] ( season) 2024 023, 02/15/2022 Retinopathy Screening 11/29/2024 11/29/2023 Diabetes Foot Exam 01/13/2025 01/14/2024, 06/06/2023 Abdominal Aortic Aneurysm Screening 02/22/2025 Falls Prevention 02/22/2025 Dental Prophy 03/23/2025 09/21/2024 Hemoglobin A1c 06/11/2025 03/11/2025, 10/28, 11/15/2024, Additional history exists Imm-Influenza (#1) 2025 07/21/2024 Dental Examination 09/23/2025 09/21/2024 Dental Perio Charting 09/23/2025 09/21/2024 Lipid Screening 11/16/2025 11/16/2024, 04/17/2022 Serum Creatinine 12/21/2025 12/21/2024, , 11/15/2024, Additional history exists TSH Monitoring 12/21/2025 12/21/2024, 04/17/2022 Tobacco Cessation Counseling (#1) 12/21/2025 024 Urine Albumin Creatinine Rat io Screening 03/11/2026 03/11/2025, 12/23/2023 HIV Screening Completed 04/17/2022 Hepatitis C Screening Completed 04/17/2022 Alcohol and Drug Screen Completed 11/06/19, 11/29/2023, 04/16/2023, Additional history exists Depression Annual Screen Completed 12/21/2024 Procedures Procedure Name Priority Date/Time Associated Diagnosis Comments GLUCOSE, BLOOD BY GLUCOSE MONITORING DEVICE (CLIA WAIVED)POCT Routine 04/29/2025 3:30 PM EDT Type 2 diabetes mellitus with hyperglycemia, with long-term current use of insulin ([facility]) HEALTH HISTORY SCANNED DOCUMENT 03/31/2025 3:00 AM EDT MICROALBUMIN/CREATINI NE RATIO, URINE, RANDOM Routine 03/11/2025 11:41 AM EDT Type 2 diabetes mellitus with hyperglycemia, with long-term current use of insulin ([facility]) HEMOGLOBIN GLYCOSYLATED A1C Routine 03/11/2025 11:17 AM EDT Type 2 diabetes mellitus with hyperglycemia, with long-term current use of insulin ([facility]) GLUCOSE, BLOOD BY GLUCOSE MONITORING DEVICE (CLIA WAIVED)POCT Routine 03/11/2025 10:46 AM EDT Type 2 diabetes mellitus with hyperglycemia, with long-term current use of insulin ([facility]) TSH W/RFLX FREE T4 Routine 12/21/2024 3: 11 PM EST Hospital discharge follow-up COMPREHENSIVE METABOLIC PANEL Routine 12/21/2024 3:11 PM EST Hospital discharge follow-up PROPHYLAXIS - ADULT Routine 09/21/2024 1 1:00 AM EST Retained tooth root COMP ORAL EVALUATION - NEW/ESTABLISHED PATIENT Routine 09/21/2024 11:00 AM EST Retained tooth root REFERRAL TO PODIATRY Routine 01/14/2024 3:00 AM EDT Uncontrolled type 2 diabetes mellitus with hypoglycemia without coma ([facility]) REFERRAL TO DIABETIC RETINAL EXAM Routine 11/29/2023 3:00 AM EST Uncontrolled type 2 diabetes mellitus with hypoglycemia without coma ([facility]) HIV 1/2 AG & AB W/RFLX (4TH GEN) Routine 04/17/2022 9:55 AM EDT Routine lab draw HEPATITIS C AB W/RFLX HCV RNA, QT, RT PCR Routine 04/17/2022 9:55 AM EDT Routine lab draw LIPIDS W RFLX TO DIRECT LDL Routine 04/17/2022 9:55 AM EDT Hypertension, essential from Last 3 Months or Most Recently Relevant to Health Maintenance Results * (ABNORMAL) GLUCOSE, BLOOD BY GLUCOSE MONITORING DEVICE (CLIA WAIVED)POCT Routine (04/29/2025 3:30 PM EDT) Only the most recent of2 resultswithin the time period is included. GLUCOSE 128(A) 70 - 100 mg/dL [facility]- BACK OFFICE POCT Capillary Blood Blood / Unknown 3:30 PM EDT Nikolai Contesteffi PharmD LAB - BLOOD DRAW Final Resu lt [facility]- BACK OFFICE POCT * HEALTH HISTORY SCANNED DOCUMENT (03/31/2025 3:00 AM EDT) 03/31/2025 3:00 AM EDT Chla Provider Default SCAN OTHER ORDERS Final Re sult * MICROALBUMIN/CREATININE RATIO, URINE, RANDOM (03/11/2025 11:41 AM EDT) CREATININE, RANDOM URINE 48 20 - 320 mg/dL [facility] MICROALBUMIN 0.8 mg/dL [facility] Comment: Reference Range Not established MICROALBUMIN/CREA TININE RATIO, RANDOM URINE 17 <30 mg/g creat [facility] Comment: The ADA defines abnormalities in albumin excretion as follows: Albuminuria Category Result (mg/g creatinine) Normal to Mildly increased <30 Moderately increased 30-299 Severely increased > OR = 300 The ADA recommends that at least two of three specimens collected within a 3-6 month period be abnormal before considering a patient to be within a diagnostic category. Urine Urine specimen / Unknown 03/11/2025 11:41 AM EDT 03/11/2025 11:41 AM EDT Narrative [facility] - 03/12/2025 8:07 PM EDT SPLIT 03/11/2025 FROM [id number] Octavio Guerrier PharmD LAB URINE AMBULATORY Viviana l Result [facility] [address] [place] [address], [facility] [address] [place] [phone] * (ABNORMAL) HEMOGLOBIN GLYCOSYLATED A1C (03/11/2025 11:17 AM EDT) HEMOGLOBIN A1C 8.8(H) <5.7 % [facility] Comment: For someone without known diabetes, a hemoglobin A1c value of 6.5% or greater indicates that they may have diabetes and this should be confirmed with a follow-up test. For someone with known diabetes, a value <7% indicates that their diabetes is well controlled and a value greater than or equal to 7% indicates suboptimal control. A1c targets should be individualized based on duration of diabetes, age, comorbid conditions, and other considerations. Currently, no consensus exists regarding use of hemoglobin A1c for diagnosis of diabetes for children. Blood Blood / Unknown 03/11/2025 1 1:17 AM EDT 03/11/2025 11:17 AM EDT Narrative [facility] [employer] [facility] - 03/12/2025 3:48 AM EDT PATIENT UNABLE TO VOID; ADVISED TO RETURN FOR COLLECTION. Octavio GaitanD LAB - BLOOD DRAW Final Re sult Performing Organization Address [facility] Co de Phone Number [employer] [address] [address], [place] [address] [address] * TSH W/RFLX FREE T4 (12/21/2024 3:11 PM EST) TSH W/REFLEX TO FT4 0.68 0.40 - 4.50 mIU/L [facility] Blood Blood / Unknown 12/21/2024 3 :11 PM EST 12/21/2024 3:11 PM EST Cassandra Moses PA-C LAB - BLOOD DRAW Edited Resu lt - Final Performing Organization Address City/[facility]/ZIP Co de Phone Number [employer] [address] [address], [employer] [address] [address] * (ABNORMAL) COMPREHENSIVE METABOLIC PANEL (12/21/2024 3:11 PM EST) GLUCOSE 199(H) 65 - 99 mg/dL [facility] Comment: Fasting reference interval For someone without known diabetes, a glucose value >125 mg/dL indicates that they may have diabetes and this should be confirmed with a follow-up test. UREA NITROGEN (BUN) 27(H) 7 - 25 mg/dL [email or web address] CREATININE (blood) 1.95(H) 0.70 - 1.35 mg/dL [email or web address] EGFR 38(L) > OR = 60 mL/min/1. 73m2 [email or web address] BUN/CREATININE RATIO 14 6 - 22 (calc) [email or web address] [facility] SODIUM 136 135 - 146 mmol/L [email or web address] [facility] POTASSIUM 4.4 3.5 - 5.3 mmol/L [email or web address] [place] [employer] CHLORIDE 95(L) 98 - 110 mmol/L [email or web address] CARBON DIOXIDE 30 20 - 32 mmol/L [email or web address] CALCIUM 9.4 8.6 - 10.3 mg/dL [email or web address] [facility] PROTEIN, TOTAL 6.8 6.1 - 8.1 g/dL [email or web address] ALBUMIN 4.1 3.6 - 5.1 g/dL [email or web address] GLOBULIN 2.7 1.9 - 3.7 g/dL (calc) [email or web address] ALBUMIN/GLOBULI N RATIO 1.5 1.0 - 2.5 (calc) [email or web address] [facility] BILIRUBIN, TOTAL 0.4 0.2 - 1.2 mg/dL [email or web address] ALKALINE PHOSPHATASE 160(H) 35 - 144 U/L [email or web address] AST 15 10 - 35 U/L [email or web address] ALT 19 9 - 46 U/L [email or web address] Blood Blood / Unknown 12/21/2024 3 :11 PM EST 12/21/2024 3:11 PM EST Cassandra Moses PA-C LAB - BLOOD DRAW Final Resul t [email or web address] [address] [address], [email or web address] [address] [address] * REFERRAL TO PODIATRY (01/14/2024 3:00 AM EDT) 01/14/2024 3:00 AM EDT us Cassandra Moses PA-C REFERRAL Final Result * REFERRAL FOR DIABETIC RETINAL EXAM (11/29/2023 3:00 AM EST) 11/29/2023 3:00 AM EST Cassandra Moses PA-C REFERRAL Final Result * Hep C Antibody with Reflex HCV RNA (04/17/2022 9:55 AM EDT) HEPATITIS C ANTIBODY NON-REACT ANTHONY NON-REACT ANTHONY [facility] SIGNAL TO CUT-OFF 0.11 <1.00 [facility] Comment: HCV antibody was non-reactive. There is no laboratory evidence of HCV infection. In most cases, no further action is required. However, if recent HCV exposure is suspected, a test for HCV RNA (test code 89571) is suggested. For additional information please refer to http://education.[employer]Hub/faq/SFQ13o6 (This link is being provided for informational/ educational purposes only.) Blood Blood / Unknown 04/17/2022 9 :55 AM EDT 04/17/2022 9:56 AM EDT Cassandra Moses PA-C LAB - BLOOD DRAW Edited Resu lt - Final [facility] [address] [address], [employer] [facility] [address] [address] * HIV Ag & Ab with Reflex Western Blot (04/17/2022 9:55 AM EDT) HIV AG/AB, 4TH GEN NON-REAC TIVE NON-REAC TIVE [facility] Comment: HIV-1 antigen and HIV-1/HIV-2 antibodies were not detected. There is no laboratory evidence of HIV infection. PLEASE NOTE: This information has been disclosed to you from records whose confidentiality may be protected by state law. If your state requires such protection, then the state law prohibits you from making any further disclosure of the information without the specific written consent of the person to whom it pertains, or as otherwise permitted by law. A general authorization for the release of medical or other information is NOT sufficient for this purpose. For additional information please refer to http://[facility].[employer]/faq/MJR336 (This link is being provided for informational/ educational purposes only.) The performance of this assay has not been clinically validated in patients less than 2 years old. Blood Blood / Unknown 04/17/2022 9 :55 AM EDT 04/17/2022 9:56 AM EDT us Cassandra Moses PA-C LAB - BLOOD DRAW Final Resul t [facility] [address] [address], [facility] [address] [address] * (ABNORMAL) Lipid Panel (with Reflex Direct LDL) (04/17/2022 9:55 AM EDT) CHOLESTEROL, TOTAL 252(H) <200 mg/dL [facility] HDL CHOLESTEROL 64 > OR = 40 mg/dL [facility] TRIGLYCERIDES 313(H) <150 mg/dL [facility] Comment: If a non-fasting specimen was collected, consider repeat triglyceride testing on a fasting specimen if clinically indicated. Laverne et al. J. of Clin. Lipidol. 2015;9:129-169. LDL-CHOLESTEROL 143(H) 99 mg/dL (calc) [facility] Comment: Reference range: <100 Desirable range <100 mg/dL for primary prevention; <70 mg/dL for patients with CHD or diabetic patients with > or = 2 CHD risk factors. LDL-C is now calculated using the Gerald-Lonny calculation, which is a validated novel method providing better accuracy than the Friedewald equation in the estimation of LDL-C. Gerald SS et al. GIOVANNA. 2013;310(19): 2712-0475 (http://education.[employer]/faq/UNH229) CHOL/HDLC RATIO 3.9 <5.0 (calc) [facility] NON-HDL CHOLESTEROL 188(H) <130 mg/dL (calc) [facility] Comment: For patients with diabetes plus 1 major ASCVD risk factor, treating to a non-HDL-C goal of <100 mg/dL (LDL-C of <70 mg/dL) is considered a therapeutic option. Blood Blood / Unknown 04/17/2022 9 :55 AM EDT 04/17/2022 9:56 AM EDT Cassandra Moses PA-C LAB - BLOOD DRAW Final Resul t [facility] [address] [address], [facility] [address] [address] from Last 3 Months or Most Recently Relevant to Health Maintenance Insurance [place] [facility] Care Teams Extracting Machine Operator Relationship Specialty Start Date End Date Cassandra Moses PA-C [address] [place] [address] PCP - General Internal Medicine 12/06/21
--- OUTSIDE RECORDS SUMMARY | 2025-05-19 17:25 | XMS_ITS | Clinical Summary ---
Author Organization [facility] Address [address] [address] Phone Care Team Providers Care Railroad Accountant Name Role Phone Unavailable Primary Care Provider Unavailabl e Allergies No known active allergies Medications allopurinol (ZYLOPRIM) 100 MG tablet Take 100 mg by mouth 1 (one) time each day Active atorvastatin (LIPITOR) 10 MG tablet Take 10 mg by mouth 1 (one) time each day Active finasteride (PROPECIA) 1 MG tablet Take 1 mg by mouth 1 (one) time each day Do not crush, chew, or split. Active insulin aspart (NovoLOG) 100 UNIT/ML injection Inject under the skin 3 (three) times a day before meals Active tamsulosin (FLOMAX) 0.4 MG 24 hr capsule Take 0.4 mg by mouth 1 (one) time each day Active sodium bicarbonate 8.4 % Infuse into a venous catheter 1 (one) time Active pantoprazole (PROTONIX) 20 MG EC tablet Take 20 mg by mouth 1 (one) time each day before breakfast Do not crush, chew, or split. Active ARIPiprazole (ABILIFY) 2 MG tablet TOME LLOYD MAURISIOA [place]OS [place] 3 Active Active Problems Problem Noted Date Diagnosed Date Stage 3b chronic kidney disease 03/21/2023 Type 2 diabetes mellitus wit h diabetic chronic kidney disease 03/21/2023 Chronic kidney disease, stage 4 (severe) 023 Type 2 diabetes mellitus wit h diabetic chronic kidney disease 02/12/2023 Renal osteodystrophy 02/12/2023 Benign prostatic hyperplasia 08/15/2022 Cardiomyopathy 08/15/2022 Obese class I 08/15/2022 Reduced ejection fraction co -occurrent and due to chronic heart failure 08/15/2022 Type 2 diabetes mellitus 08/15/2022 Posttraumatic stress disorder 07/05/2022 Hypothyroidism 04/18/2022 Gout 04/18/2022 Elevated prostate specific antigen (PSA) 022 Constipation 04/18/2022 Congestive heart failure 04/18/2022 COVID-19 viral pneumonia 02/04/2022 Hypertensive disorder 01/31/2022 Asthma 01/31/2022 Stage 3 chronic kidney disease 01/31/2022 Acute nontraumatic kidney injury 01/31/2022 Acute nontraumatic kidney injury 01/31/2022 Resolved Problems Problem Noted Date Diagnosed Date Resolved Date Hyperlipidemia 01/31/2022 01/31/2022 Type 1 diabetes mellitus wit h diabetic autonomic polyneuropathy 01/31/2022 01/31/2022 Immunizations Immunization Administration Dates Next Due Moderna SARS-COV-2 02/15/2022 Social History Tobacco Use Types Packs/Day Years Used Date Smoking Tobacco: Never Smokeless Tobacco: Never Alcohol Use Standard Drinks/Week Comments Never 0 (1 standard drink = 0.6 oz pur e alcohol) Sex and Gender Information Value Date Recorded Sex Assigned at Not on file Legal Sex Male 8:57 AM EST Gender Identity Not on file Sexual Orientation Not on file Last Filed Vital Signs Vital Sign Reading Time Taken Comments Blood Pressure 126/66 03/21/2023 1:50 PM EDT Pulse 68 03/21/2023 1:50 PM EDT Temperature - - Respiratory Rate - - Oxygen Saturation 98% 03/21/2023 1:50 PM EDT Inhaled Oxygen Concentration - - Weight - - Height - - Body Mass Index - - Plan of Treatment Health Maintenance Due Date Last Done Comments Pneumococcal Vaccine: 50+ Years (1 of 2 - PCV) 02/22/1979 Colorectal Cancer Screening: Annual FOBT 02/22/2009 Colorectal Cancer Screening: Colonoscopy 02/22/2009 Colorectal Cancer Screening: Sigmoidoscopy 02/22/2009 Diabetes: Ophthalmology Exam 07/14/2022 Diabetes: Pedal Pulse Checked 07/14/2022 Diabetes: Sensory Foot Exam 07/14/2022 Diabetes: Visual Foot Exam 07/14/2022 Diabetes: Hemoglobin A1C 02/13/2025 025, 11/06/2024 Influenza Vaccine (#1) 2025 07/21/2024 Hepatitis B Vaccine Aged Out No longe r eligible based on patient's age to complete this topic Insurance Medicaid [facility] Medicare UHC Medicare Medicaid [place]
--- OUTSIDE RECORDS SUMMARY | 2025-05-19 17:25 | XMS_ITS | Clinical Summary ---
Author Organization [facility] Address [address] [place] [address] Phone Care Team Providers Care Clerical Secretary Name Role Phone Cassandra Moses Primary Care Provider Allergies No known active allergies Medications insulin lispro (HumaLOG KwikPen) 100 unit/mL injection pen Humalog sliding 3 times a day 100-149: 15 units, 150-199: 18 units, 200-249: 21 units, 250-299: 24 units, 300-349: 27 units, 350-399: 30 units. 15 mL 11/09/2024 Active atorvastatin (LIPITOR) 80 mg tablet Take 1 tablet (80 mg total) by mouth at bedtime. Active carvediloL (COREG) 12.5 mg tablet Take 1 tablet (12.5 mg total) by mouth 2 (two) times a day with meals. 11/06/2024 Active pantoprazole (PROTONIX) 40 mg EC tablet Take 1 tablet (40 mg total) by mouth daily. 11/21/2023 Active Entresto 97-103 mg per tablet Take 1 tablet by mouth 2 (two) times a day. Active insulin degludec (Tresiba FlexTouch U-100) 100 unit/mL (3 mL) injection pen Inject 36 Units under the skin at bedtime for 28 days. 10 mL 11/16/2024 Active Active Problems Problem Noted Date Diagnosed Date Hyperglycemia 11/15/2024 Medical History Medical History Date Comments Diabetes mellitus (CMS/HCC V24, CMS/HCC V28) Social History Tobacco Use Types Packs/Day Years Used Date Smoking Tobacco: Never Smokeless Tobacco: Never Alcohol Use Standard Drinks/Week Comments Not Currently 0 (1 standard drink = 0.6 oz pur e alcohol) Interpersonal Safety Answer Date Record ed Physical Abuse 11/15/2024 Verbal Abuse 11/15/2024 Sex and Gender Information Value Date Recorded Sex Assigned at Not on file Legal Sex Male 10:45 PM EST Gender Identity Not on file Sexual Orientation Not on file Obstetrics History Last Filed Vital Signs Vital Sign Reading Time Taken Comments Blood Pressure 141/87 11/16/2024 11:51 AM EST Pulse 86 11/16/2024 11:51 AM EST Temperature 36.4 C (97.6 F) 11/16/2024 11:51 AM EST Respiratory Rate 16 11/16/2024 11:51 AM EST Oxygen Saturation 97% 11/16/2024 11:51 AM EST Inhaled Oxygen Concentration - - Weight 110 kg (243 lb) 11/15/2024 12:54 PM EST Height 182.9 cm (6') 11/15/2024 12:54 PM EST Body Mass Index 32.96 11/15/2024 12:54 PM EST Plan of Treatment Health Maintenance Due Date Last Done Comments Diabetes: Annual Foot Exam 02/22/1970 Diabetes: Annual Retina Eye Exam 02/22/1970 DTaP,Tdap,and Td Vaccines (1 - Tdap) 02/22/1979 Pneumococcal Vaccine: 50+ Years (1 of 2 - PCV) 02/22/1979 Zoster Vaccines (1 of 2) 02/22/2010 RSV Immunization Adult Patients (1 - Risk 60-74 years 1-dose series) 2020 Colorectal Cancer Screening: Colonoscopy 09/30/2022 Social Influencers of Health Screening 09/30/2022 COVID-19 Vaccine ( season) 2024 01/21/2023, 02/15/2022 Depression Screening 10/28/2024 Diabetes: Annual Urine Albumin-Creatinine Ratio (uACR) 12/23/2024 12/23/2023 Diabetes: Blood Sugar Control Test (HGBA1C) 05/15/2025 11/15/2024, 11/06/2024, 04/07/2024 Influenza Vaccine (#1) 2025 07/21/2024 Falls Risk Assessment 11/16/2025 11/16/2024 Diabetes: Annual GFR (Glomerular Filtration Rate) 12/21/2025 12/21/2024, 11/16/2024, 11/15/2024, Additional history exists Hypertension/CHF/CAD Annual BMP Blood Test 12/21/2025 12/21/2024, 11/16/2024, 11/15/2024, Additional history exists Cholesterol Screening (Lipid Panel) 11/16/2029 11/16/2024, 04/17/2022 Hepatitis C Screening Completed 04/17/2022 HIB Vaccines Aged Out No longer eligi ble based on patient's age to complete this topic HPV Vaccines Aged Out No longer eligi ble based on patient's age to complete this topic Hepatitis A Vaccines Aged Out No long er eligible based on patient's age to complete this topic Hepatitis B Vaccines Aged Out No long er eligible based on patient's age to complete this topic IPV Vaccines Aged Out No longer eligi ble based on patient's age to complete this topic MMR Vaccines Aged Out No longer eligi ble based on patient's age to complete this topic Meningococcal ACWY Vaccine Aged Out N o longer eligible based on patient's age to complete this topic Meningococcal B Vaccine Aged Out No l onger eligible based on patient's age to complete this topic RSV Immunization Patients Under 20 months Aged Out No longer eligible based on patient's age to complete this topic Varicella Vaccines Aged Out No longer eligible based on patient's age to complete this topic Procedures Procedure Name Priority Date/Time Associated Diagnosis Comments BASIC METABOLIC PANEL Timed 11/16/2024 3:55 AM EST LIPID PANEL WITH REFLEX TO DIRECT LDL Routine 11/16/2024 3:55 AM EST HEMOGLOBIN A1C Add-On 11/15/2024 1:54 PM EST from Last 3 Months or Most Recently Relevant to Health Maintenance Results * (ABNORMAL) Lipid panel with reflex to direct LDL (11/16/2024 3:55 AM EST) Cholesterol 142 0 - 200 mg/dL LAB CHEMISTRY METHOD 11/16/2024 4:40 AM EST [facility] Triglycerides 189(H) 0 - 150 mg/dL LAB CHEMISTRY METHOD 11/16/2024 4:40 AM EST [facility] HDL 35(L) >=40 mg/dL LAB CHEMISTRY METHOD 11/16/2024 4:40 AM [facility] LDL Calculated 69 0 - 100 mg/dL LAB CHEMISTRY METHOD 11/16/2024 4:40 AM [facility] VLDL Cholesterol Rad 37.8 mg/dL LAB CHEMISTRY METHOD 11/16/2024 4:40 AM [facility] Non HDL Chol. (LDL+VLDL) 107 <145 mg/dL LAB CHEMISTRY METHOD 11/16/2024 4:40 AM [facility] Chol/HDL Ratio 4.1 0.0 - 4.4 LAB CHEMISTRY METHOD 11/16/2024 4:40 AM [facility] Blood Venous blood specimen / Unknown Venipuncture / Unknown 11/16/2024 3:55 AM EST 11/16/2024 3:59 AM EST Nan BOLANOS LAB BLOOD ORDERABLES Fi nal Result [facility] [address] [place] [address], * (ABNORMAL) Basic metabolic panel (11/16/2024 3:55 AM EST) Sodium 138 133 - 145 mmol/L LAB CHEMISTRY METHOD 11/16/2024 4:39 AM [facility] Potassium 3.7 3.5 - 5.5 mmol/L LAB CHEMISTRY METHOD 11/16/2024 4:39 AM [facility] Chloride 107 96 - 110 mmol/L LAB CHEMISTRY METHOD 11/16/2024 4:39 AM [facility] CO2 24 21 - 32 mmol/L LAB CHEMISTRY METHOD 11/16/2024 4:39 AM [facility] Anion Gap 7 3 - 11 LAB CHEMISTRY METHOD 11/16/2024 4:39 AM [facility] Glucose 157(H) 70 - 100 mg/dL LAB CHEMISTRY METHOD 11/16/2024 4:39 AM EST [facility] BUN 23 5 - 25 mg/dL LAB CHEMISTRY METHOD 11/16/2024 4:39 AM [facility] Creatinine 1.58(H) 0.70 - 1.30 mg/dL LAB CHEMISTRY METHOD 11/16/2024 4:39 AM [facility] eGFR 49(L) >=60 mL/min/1. 73m2 LAB CHEMISTRY METHOD 11/16/2024 4:39 AM [facility] Comment:Calculation based on the Chronic Kidney Disease Epidemiology Collaboration (CKD-EPI) equation refit without adjustment for race. BUN/Creatinine Ratio 14.6 LAB CHEMISTRY METHOD 11/16/2024 4:39 AM [facility] Calcium 8.2(L) 8.5 - 10.5 mg/dL LAB CHEMISTRY METHOD 11/16/2024 4:39 AM [facility] Blood Venous blood specimen / Unknown Venipuncture / Unknown 11/16/2024 3:55 AM EST 11/16/2024 3:59 AM EST us Antonio Doss MD LAB BLOOD ORDERABLES Final Res ult [facility] [address] [place] [address], * (ABNORMAL) Hemoglobin A1c (11/15/2024 1:54 PM EST) Hemoglobin A1C 13.5(H) <6.5 % LAB CHEMISTRY METHOD 11/16/2024 1:32 PM EST [facility] Mean Bld Glu Estim. 341 mg/dL LAB CHEMISTRY METHOD 11/16/2024 1:32 PM [facility] Blood Venous blood specimen / Unknown Venipuncture / Unknown 11/15/2024 1:54 PM EST 11/15/2024 2:08 PM EST us Nan BOLANOS LAB BLOOD ORDERABLES Fi nal Result [facility] [address] [place] [address], [place] [phone] from Last 3 Months or Most Recently Relevant to Health Maintenance Insurance [facility] Member Subscriber Plan / Payer (Ef fective 2025-Present) Name:Yanick Power Relation to Subscriber:Self Name:Yanick Arita Payer ID:[id number] Group ID:[id number] Type:Not on file Address: [place] [address] [address] [phone] Advance Directives * Full Code - Default (Latest Code Status on File) Date Activated Date Inactivated Comments 11/15/2024 4:42 PM 11/16/2024 3:53 PM This is orde r is used when code status has not been discussed with the patient, or code status is otherwise unknown/unconfirmed To update the patient's code status, place a code status order. Do not modify or discontinue any currently active code status orders. Care Teams Clerical Secretary Relationship Specialty Start Date End Date Cassandra Moses PA [address] [place] [address] PCP - General 07/12/22
[2025-05-19 17:27] VITALS: BP 155/88; PULSE 87; RESP 96; TEMP -13.3; TEMP 8; O2SAT 94
[2025-05-19 17:56] LABS: MANUAL DIFF FLAG NO
--- NOTE | 2025-05-19 18:01 | PC.NURSE ---
Malagasy speaking only. No orthopedic nurse on scene reported by EMS, patient c/o left foot swelling that started 2 weeks ago, rated 10/10. left foot edematous +3, +CMS +ROM. Denies thinners. Patient reports having CHF, currently taking torsemide. Patient hypertensive otherwise all other VSS. Provider in to see patient. Sapp of care on going
[2025-05-19 18:02] LABS: Hematocrit 40.5 % (42.0-52.0); Hemoglobin 13.1 g/dl (14.0-18.0); Imm Gran Abs Auto 0.01 X10*3/uL (0.00-0.03); Imm Gran Pct Auto 0.1 % (0.0-0.4); Lymphocytes Absolute Auto 1.9 X10*3/uL (1.2-4.9); Mean Corpuscular HGB Conc 32.3 g/dl (31.0-36.0); Mean Corpuscular Hemoglobin 27.7 pg (27.0-33.0); Mean Corpuscular Volume 85.6 fL (80.0-98.0); NRBC Abs Auto 0.000 X10*3/uL (0.0-0.012); NRBC Pct Auto 0.0 /100WBC (0.0-0.2); Platelet Count 302 X10*3/uL (160-400); Red Blood Count 4.73 X10*6/uL (4.60-5.80); White Blood Count 7.9 X10*3/uL (4.8-10.8)
[2025-05-19 18:12] LABS: Alanine Aminotransferase 32 U/L (0-40); Albumin Level 4.1 g/dL (3.5-5.0); Alkaline Phosphatase 162 U/L (39-117); Anion Gap 11 (12-20); Aspartate Amino Transferase 29 U/L (5-37); Blood Urea Nitrogen 16 mg/dL (9-16); Calcium 9.2 mg/dL (8.4-10.2); Carbon Dioxide 27 mmol/L (22-29); Chloride 104 mmol/L (96-108); Creatinine Clr Calc Pharmacy 62.3; Estimated Glomerular Filt Rate 48; Magnesium 1.9 mg/dL (1.6-2.6); Potassium 4.0 mmol/L (3.3-5.1); Sodium 138 mmol/L (135-145); Total Protein 8.0 g/dL (6.5-8.0)
--- NOTE | 2025-05-19 18:15 | ED.GENADULT ---
HPI - General Adult General Chief complaint: General Medical Stated complaint: bi lat ankle pain/edema Time Seen by Provider: 05/19/25 18:13 Source: patient Mode of arrival: ambulatory Limitations: language barrier (B[place]udian speaking only, [facility] [place] sales and marketing administrator used) History of Present Illness ED Provider: Dr. Griffin Mccray HPI narrative: 65-year-old male with past medical history of IDDM, HFrEF, cardiomyopathy, CAD/multiple stents, COPD with asthma overlap, CKD ( baseline 1.8-2.2), obesity who presents emergency department for evaluation of swelling of the left lower extremity from just below the knee down to the foot. Patient states that he has had symptoms for greater than 1 week. He did see his agricultural engineering teacher on 05/10/2025 and was advised to go to the emergency department for evaluation but did not come until today. Patient states that the swelling started in his left great toe and spread up his leg.. He states in his left leg is now much larger than the right. He noted redness with increased warmth as well as pain in the area of redness. He denied fever but he did have chills. He states that he had nausea with no vomiting. He states he is feeling very tired and fatigued. Related Data Home Medications ?Medication ?Instructions ?Recorded ?Confirmed carvedilol 12.5 mg tablet 12.5 mg PO BID 03/29/25 03/29/25 dulaglutide 0.75 mg/0.5 mL 0.75 mg subcut QWEEK 03/29/25 03/29/25 subcutaneous pen injector (Trulicity) insulin aspart U-100 100 unit/mL 1 sliding scale dose subcut 03/29/25 03/29/25 (3 mL) subcutaneous pen (Novolog USEASDIRECTD FlexPen U-100 Insulin aspart) insulin degludec 100 unit/mL (3 32 unit subcut DAILY 03/29/25 03/29/25 mL) subcutaneous pen (Tresiba FlexTouch U-100 insulin) levothyroxine 50 mcg capsule 50 mcg PO DAILY 03/29/25 03/29/25 pantoprazole 40 mg tablet,delayed 40 mg PO DAILY 03/29/25 03/29/25 release sacubitril 97 mg-valsartan 103 mg 1 tab PO BID 03/29/25 03/29/25 tablet (Entresto) tamsulosin 0.4 mg capsule 0.4 mg PO DAILY 03/29/25 03/29/25 torsemide 20 mg tablet 40 mg PO BID 03/29/25 03/29/25 Previous Rx's ?Medication ?Instructions ?Recorded amoxicillin 400 mg-potassium 10 ml PO BID #140 mL 03/31/25 clavulanate 57 mg/5 mL oral suspension Allergies Allergy/AdvReac Type Severity Reaction Status Date / Time No Known Drug Allergies Allergy Unknown Verified 05/19/25 16:16 Review of Systems Review of Systems: Yes all other systems are reviewed and are negative [facility] Past Medical History Medical History (Updated 05/19/25 @ 18:53 by Griffin Mccray MD) CKD (chronic kidney disease) stage 3, GFR 30-59 ml/min Class 1 obesity Social History Social History Household Members: Spouse Housing: Apartment Do you presently have visiting nurse or other home services: Yes (STAFFING MANAGER) Patient Tobacco Use Status: Never used Tobacco Smoked in Last 30 Days: No e-Cigarette/Vaping Use: Never Used Use of substances other than those prescribed or required for medical reasons: No Advance Directives: No Advance Directives Information Provided: No Do you have a plan to hurt others: No Plan service: No Physical Exam ED Vital Signs: Vital Signs - 24 hr 05/19/25 16:15 05/19/25 17:27 Temperature 98.6 F 8.0 F L Pulse Rate 69 87 Respiratory Rate 16 96 H Blood Pressure 140/74 H 155/88 H Pulse Oximetry 96 94 Oxygen Delivery Method Room Air Room Air BMI result Body Mass Index 35.0 Vital signs revealed elevated blood pressure of 140/74 otherwise unremarkable Exam: General: Awake, alert in no distress Head: Normocephalic, atraumatic EENT: PERRL, Lids normal, sclera normal, conjunctiva normal, nose normal , ears normal, throat without erythema or exudates Neck: Supple, no adenopathy Lung: breath sounds symmetric, no wheezing, rales or rhonchi Chest: symmetric movement, nontender Heart: regular rate and rhythm, normal S1, S2 no murmurs or rubs Abdomen: soft, non-tender, nondistended, normal bowel sounds Back: no vertebral tenderness, no CVAT Extremities: Patient has 2+ pitting edema from his foot to just below the knee on the left compared to the right, the patient has erythema to his left great toe with a ulcer to the dorsal aspect of the great toe, erythema extends to just below the knee with increased warmth. Neuro: Awake, alert, oriented, normal speech, cranial nerves intact, moves all extremities symmetrically Psych: Pleasant, cooperative Medical Decision Making Medical Decision Making MDM Narrative: 65-year-old male with past medical history of IDDM, HFrEF, cardiomyopathy, CAD/multiple stents, COPD with asthma overlap, CKD ( baseline 1.8-2.2), obesity who presents emergency department for evaluation of swelling of the left lower extremity from just below the knee down to the foot. Patient states that he has had symptoms for greater than 1 week. He did see his agricultural engineering teacher on 05/10/2025 and was advised to go to the emergency department for evaluation but did not come until today. Patient states that the swelling started in his left great toe and spread up his leg.. He states in his left leg is now much larger than the right. He noted redness with increased warmth as well as pain in the area of redness. He denied fever but he did have chills. He states that he had nausea with no vomiting. He states he is feeling very tired and fatigued. Vital signs revealed an elevated blood pressure otherwise unremarkable. Left foot, ankle and calf are swollen with 2+ pitting edema, erythema and increased warmth with skin ulcer to the dorsal aspect of the left great toe . Differential diagnosis: ?Includes but is not limited to lower extremity cellulitis, diabetic foot ulcer, osteomyelitis, DVT, anemia, electrolyte abnormalities Course: 18:41 My independent interpretation patient's laboratory evaluation as follows: CBC was normal. BUN normal 16 with an elevated creatinine of 1.47. Glucose elevated 193. Alk-phos elevated 162. Duplex ultrasound of the left lower extremity revealed no DVT. X-ray of the left great toe to rule out osteomyelitis is pending.Patient's findings are concerning for cellulitis secondary to diabetic foot ulcer of the left great toe. Patient's pain was treated with morphine 4 mg IV and he was given Zosyn 4.5 g IV for cellulitis. I did discuss the patient's presentation with the covering hospitalist, Dr. Farrar and the patient will be admitted for further treatment. Admission/Observation Consideration of admission/observation: Escalation of care including admission/observation considered (Yes) Consult Healthcare Provider Management of the patient was discussed with: Hospitalist Lab Data MDM Lab Attestation statement: I reviewed the patient's lab results. 05/19/25 17:50 05/19/25 17:50 Labs: Lab Results 05/19/25 Range/Units 17:50 WBC 7.9 (4.8-10.8) X10*3/uL RBC 4.73 (4.60-5.80) X10*6/uL Hgb 13.1 L (14.0-18.0) g/dl Hct 40.5 L (42.0-52.0) % MCV 85.6 (80.0-98.0) fL MCH 27.7 (27.0-33.0) pg MCHC 32.3 (31.0-36.0) g/dl RDW 14.4 (11.0-16.0) % Plt Count 302 (160-400) X10*3/uL MPV 9.5 (9.4-12.4) fL Immature Gran % (Auto) 0.1 (0.0-0.4) % Neut % (Auto) 58.1 (45-73) % Lymph % (Auto) 24.0 (20-40) % Mcculloch % (Auto) 7.5 (2-11) % Eos % (Auto) 9.9 H (0-4) % Baso % (Auto) 0.4 (0-2) % Lymph # (Auto) 1.9 (1.2-4.9) X10*3/uL Mcculloch # (Auto) 0.6 (0.1-1.2) X10*3/uL Eos # (Auto) 0.8 H (0.0-0.4) X10*3/uL Baso # (Auto) 0.0 (0.0-0.2) X10*3/uL Abs Immat Gran (auto) 0.01 (0.00-0.03) X10*3/uL Absolute Neuts (auto) 4.6 (2.0-8.3) x10*3/uL Absolute Nucleated RBC 0.000 (0.0-0.012) X10*3/uL Nucleated RBC % (auto) 0.0 (0.0-0.2) /100WBC Sodium 138 (135-145) mmol/L Potassium 4.0 (3.3-5.1) mmol/L Chloride 104 (96-108) mmol/L Carbon Dioxide 27 (22-29) mmol/L Anion Gap 11 L (12-20) BUN 16 (9-16) mg/dL Creatinine 1.47 H (0.5-1.4) mg/dL Estim Creat Clear Calc 62.3 Estimated GFR 48 Random Glucose 193 H (60-115) mg/dL Calcium 9.2 (8.4-10.2) mg/dL Magnesium 1.9 (1.6-2.6) mg/dL Total Bilirubin 0.2 (0.0-1.0) mg/dL AST 29 (5-37) U/L ALT 32 (0-40) U/L Alkaline Phosphatase 162 H (39-117) U/L Total Protein 8.0 (6.5-8.0) g/dL Albumin 4.1 (3.5-5.0) g/dL Radiology Impression Discussion of test interpretation with radiology: I have reviewed the radiologist's reading. Radiologist Impression: Venous duplex ultrasound left lower extremity Comparison: None provided Findings: The visualized deep veins are fully compressible with normal Doppler color flow and spectral tracings. No popliteal cyst. IMPRESSION: 1. Negative for left lower extremity deep vein thrombosis. This document has been electronically signed by: Han Quick MD on 05/19/2025 18:40:01 External Record Review External record reviewed: Inpatient record Chronic Conditions Patient?s care impacted by: Diabetes and Other (Congestive heart failure with decreased EF) Discharge Plan Discharge Patient Disposition: Admitted As Inpatient Print Language: Bermudian
[2025-05-19 18:16] VITALS: BP 145/78; PULSE 84; RESP 18; TEMP 36.4; O2SAT 95
[2025-05-19 18:17] LABS: B Type Natriuretic Peptide 103 pg/mL (<100)
--- NOTE | 2025-05-19 19:07 | PM.IMHP ---
History of Present Illness Date of Service: 05/19/25 Chief Complaint: left foot infection This is a 65-year-old Irish-speaking male with pertinent history of congestive heart failure with reduced ejection fraction, insulin-dependent type 2 diabetes mellitus, CAD status post stents, 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 Patient states his symptoms started about 2 weeks prior to presentation. He was seen outpatient at meter repair shop supervisor office on 05/10 who advised the patient to come to the ER but patient did not come to the ER and did not take any treatment for the same. No inciting factor or trauma noted. Patient states initially the redness and swelling started in his distal foot but has spread proximally over the last 1 week. It is associated with swelling, warmth and pain. Also noticed foul-smelling purulent drainage from left great toe. Admits associated chills but no documented fever. No chest pain, palpitations, shortness of breath, wheezing, orthopnea, PND, changes in urinary or bowel habits. History obtained with the help of padded products inspector trimmer. In the emergency department, venous duplex left lower extremity negative and patient was given empiric IV antibiotics. 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) Patient Tobacco Use Status: Never used Tobacco e-Cigarette/Vaping Use: Never Used service: No Meds Allergies Allergy/AdvReac Type Severity Reaction Status Date / Time No Known Drug Allergies Allergy Unknown Verified 05/19/25 16:16 Home Medications ?Medication ?Instructions ?Recorded ?Confirmed ?Last Taken ?Type carvedilol 12.5 mg tablet 12.5 mg PO BID 03/29/25 03/29/25 Unknown History insulin aspart U-100 100 unit/mL 1 sliding scale dose subcut 03/29/25 03/29/25 Unknown History (3 mL) subcutaneous pen (Novolog USEASDIRECTD FlexPen U-100 Insulin aspart) insulin degludec 100 unit/mL (3 32 unit subcut DAILY 03/29/25 03/29/25 Unknown History mL) subcutaneous pen (Tresiba FlexTouch U-100 insulin) levothyroxine 50 mcg capsule 50 mcg PO DAILY@0600 03/29/25 03/29/25 Unknown History pantoprazole 40 mg tablet,delayed 40 mg PO DAILY@0603/29/25 03/29/25 Unknown History release sacubitril 97 mg-valsartan 103 mg 1 tab PO BID 03/29/25 03/29/25 Unknown History tablet (Entresto) tamsulosin 0.4 mg capsule 0.4 mg PO DAILY 03/29/25 03/29/25 Unknown History torsemide 20 mg tablet 40 mg PO BID 03/29/25 03/29/25 Unknown History dulaglutide 1.5 mg/0.5 mL 1.5 mg subcut QWEEK 05/19/25 Unknown History subcutaneous pen injector (Trulicity) Physical Exam Vital Signs and Narrative: Vital Signs: Last Vital Signs Temp 97.6 F 05/19/25 18:16 Pulse 84 05/19/25 18:16 Resp 18 05/19/25 18:16 BP 145/78 H 05/19/25 18:16 Pulse Ox 95 05/19/25 18:16 O2 Del Method Room Air 05/19/25 18:16 BMI result Body Mass Index 35.0 Middle-aged male lying in bed in no distress Neck supple, no JVD Regular rate and rhythm, S1-S2 heard Regular breath sounds bilaterally, no wheezing or crackles appreciated Abdomen soft nontender, no guarding, no rigidity Patient is awake, alert and oriented to self, place, time and person ; no focal motor deficit Psych: Normal mood Left foot with erythema, swelling, warmth, left great toe with nonhealing ulcer on ventral aspect (as pictured below) Skin: Other: Results Labs 05/19/25 17:50 05/19/25 17:50 Labs: Laboratory Results - last 24 hr 05/19/25 17:50 MCV 85.6 MCH 27.7 MCHC 32.3 RDW 14.4 Plt Count 302 MPV 9.5 Immature Gran % (Auto) 0.1 Neut % (Auto) 58.1 Lymph % (Auto) 24.0 [place] % (Auto) 7.5 Eos % (Auto) 9.9 H Baso % (Auto) 0.4 Lymph # (Auto) 1.9 [place] # (Auto) 0.6 Eos # (Auto) 0.8 H Baso # (Auto) 0.0 Abs Immat Gran (auto) 0.01 Absolute Neuts (auto) 4.6 Absolute Nucleated RBC 0.000 Nucleated RBC % (auto) 0.0 Anion Gap 11 L Estim Creat Clear Calc 62.3 Estimated GFR 48 Random Glucose 193 H Calcium 9.2 Magnesium 1.9 Total Bilirubin 0.2 AST 29 ALT 32 Alkaline Phosphatase 162 H C-Reactive Protein 5.48 H B-Natriuretic Peptide 103 H Total Protein 8.0 Albumin 4.1 Assessment and Plan (1) Cellulitis of left leg: Status: Acute Plan This is a 65-year-old Irish-speaking male with pertinent history of congestive heart failure with reduced ejection fraction, insulin-dependent type 2 diabetes mellitus, CAD status post stents, 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 #. Left lower extremity cellulitis with infected great toe ulcer: Will admit patient with broad-spectrum IV antibiotics due to extensive infection. No sepsis. Venous duplex negative. X-ray pending #. Insulin-dependent type 2 diabetes mellitus with hyperglycemia: Initiating Accu-Cheks with sliding scale insulin. Reduced home basal insulin once med rec is complete #. Congestive heart failure with reduced ejection fraction: No decompensation during admission. Continue Entresto, beta-doris and diuretics #. CKD stage 3: Creatinine at baseline. Continue to monitor #. COPD/asthma overlap syndrome: No exacerbation during admission. #. Obesity class 2: Weight loss encouraged #. BPH: On Flomax #. Gastroesophageal reflux disease: On PPI #. Hypothyroidism: On Synthroid Med rec pending DVT prophylaxis: Lovenox Full code. Discussed with patient at bedside using automatic driller and reamer Admit as inpatient and will require two night minimum hospital stay for IV antibiotic (as above), which is not possible in a lesser acute setting. Quality Stroke Does the patient have a stroke diagnosis?: No VTE Prior VTE?: No VTE Risk Level:: Medical - moderate - high VTE Device Contraindication: Treatment Not Indicated VTE Drug Contraindication: N/A - Med Ordered
[2025-05-19 19:20] VITALS: BP 162/101; PULSE 84; RESP 16; TEMP 36.8; O2SAT 94
[2025-05-19] MEDS: vancomycin/NS 2,000 MG/500 ML PLAST..BAG 250 MG IV (20:18)
[2025-05-19 20:22] LABS: Glucose, Whole Blood 109 mg/dL (60-115)
--- NOTE | 2025-05-19 20:55 | PHA.MEDREC ---
Addendum entered by Iggy Zuniga RPh 05/20/25 15:22: Received current medication list from [facility] (on [address] in [place] [phone]) and also spoke to Kanwal (COAT FITTER) to confirm medication list. Per Kanwal, pt was supposed to take torsemide 80 mg bid for only 2 days (05/19 and 05/20) then go back to normal dose of 40 mg bid but he was only able to take 1 dose of the 80 mg on 05/19 before he came to [facility]. Entresto is still active in med list from [facility] so med is included in med rec. Kanwal confirmed patient is still taking aripiprazole, gabapentin, atorvastatin and albuterol prn. MED REC REVIEWED BY [facility]. Original Note: Pharmacy Consult ? Medication Reconciliation Pharmacy has completed the medication reconciliation. Utilized manager services to speak with pt. Pt poor historian with his medications and told us to call his COAT FITTER Kanwal (found contact for Kanwal [phone] under niece/nephew but according to pt that is his COAT FITTER). Pt was able to confirm he takes Tresiba but couldn't remember the dose at this time, stating Kanwal takes care of that; I also called pt pharmacy ([facility]) and they confirmed the directions of injecting 32 units daily. Pt confirmed he was taking Trulicity once a week on Tuesdays but states his Dr put that on hold for 2 weeks last week and he is scheduled to re-start that again Friday 05/25. Pt has an Rx bottle of Torsemide 20mg tabs and written on the bottle it states that pt is now taking 4 tabs BID; speaking with [facility] pt has an active script for 2 tabs BID and nothing in the pt profile for 4 tabs BID. I tried calling Kanwal @[phone] but had no luck and had to leave a voicemail; we will have am team follow up if we done get a call back tonight and I utilized claims for now to confirm pt med rec.
[2025-05-19 21:03] VITALS: BMI 34.7
[2025-05-19 22:20] VITALS: BP 136/65; PULSE 84; RESP 18; TEMP 36.9; O2SAT 99
[2025-05-19] MEDS: 0.9 % Sodium Chloride Flush 3 ML SYRINGE IVFLUSH (22:45)
[2025-05-20 04:00] VITALS: BP 137/71; PULSE 88; RESP 20; TEMP 37.4; O2SAT 94
[2025-05-20 06:27] LABS: MANUAL DIFF FLAG NO
[2025-05-20 06:34] LABS: Hematocrit 37.4 % (42.0-52.0); Hemoglobin 12.4 g/dl (14.0-18.0); Imm Gran Abs Auto 0.03 X10*3/uL (0.00-0.03); Imm Gran Pct Auto 0.4 % (0.0-0.4); Lymphocytes Absolute Auto 1.5 X10*3/uL (1.2-4.9); Mean Corpuscular HGB Conc 33.2 g/dl (31.0-36.0); Mean Corpuscular Hemoglobin 28.3 pg (27.0-33.0); Mean Corpuscular Volume 85.4 fL (80.0-98.0); NRBC Abs Auto 0.000 X10*3/uL (0.0-0.012); NRBC Pct Auto 0.0 /100WBC (0.0-0.2); Platelet Count 270 X10*3/uL (160-400); Red Blood Count 4.38 X10*6/uL (4.60-5.80); White Blood Count 8.3 X10*3/uL (4.8-10.8)
[2025-05-20 06:46] LABS: Anion Gap 14 (12-20); Blood Urea Nitrogen 18 mg/dL (9-16); Calcium 8.5 mg/dL (8.4-10.2); Carbon Dioxide 27 mmol/L (22-29); Chloride 104 mmol/L (96-108); Creatinine Clr Calc Pharmacy 60.1; Estimated Glomerular Filt Rate 46; Potassium 3.8 mmol/L (3.3-5.1); Sodium 141 mmol/L (135-145)
[2025-05-20 07:29] LABS: Glucose, Whole Blood 133 mg/dL (60-115)
[2025-05-20 07:43] VITALS: BP 163/86; PULSE 94; RESP 17; TEMP 36.8; O2SAT 92
[2025-05-20] MEDS: 0.9 % Sodium Chloride Flush 3 ML SYRINGE IVFLUSH ×3 (07:49→22:38)
--- NOTE | 2025-05-20 08:30 | PM.CNOR ---
History of Present Illness HPI Consult date: 05/20/25 Chief complaint: foot infection Narrative: Patient is a 65-year-old male admitted to the hospital for evaluation of infection of the left foot Patient is noted to have a significant ulceration of the left great toe with surrounding cellulitis Patient reports that this pain extends from the foot all the way up to the ankle and distal leg Patient did have a surgery on this foot ?many years ago? in [place] X-rays taken in the ED reveal some lucency around the TMT screw Patient reports pain has improved significantly with IV antibiotics No other acute complaints or concerns at this time Review of Systems Review of Systems: Yes all other systems are reviewed and are negative PMFSH Past Medical History Medical History CKD (chronic kidney disease) stage 3, GFR 30-59 ml/min Class 1 obesity Social History Social History Household Members: Spouse Housing: Apartment Do you presently have visiting nurse or other home services: Yes ([employer]) Patient Tobacco Use Status: Never used Tobacco e-Cigarette/Vaping Use: Never Used service: No Meds Allergies Allergy/AdvReac Type Severity Reaction Status Date / Time No Known Drug Allergies Allergy Unknown Verified 05/19/25 16:16 Active Medications: Current Medications Acetaminophen (Acetaminophen 325 Mg Tablet) 650 mg PO Q6H PRN PRN Reason: Pain, Mild 1-3,fever,headache Calcium Carbonate (Calcium Carbonate 750 Mg Tab.Chew) 750 mg PO Q4H PRN PRN Reason: Heartburn Dextrose (Dextrose 50 % 25 Gm/50 Ml Syringe) 25 gm IVPUSH Q15M PRN; Protocol PRN Reason: per Hypoglycemia Standing Ord. Enoxaparin Sodium (Enoxaparin Sodium 40 Mg/0.4 Ml Syringe) 40 mg SUBCUT Q24H [facility] Last Admin: 05/19/25 20:17 Dose: 40 mg Glucose (Glucose Gel 15 Gm Gel..Gram.) 15 gm PO Q15M PRN; Protocol PRN Reason: per Hypoglycemia Standing Ord. Piperacillin Sod/Tazobactam (Sod 4.5 gm/ Sodium Chloride) 100 mls @ 200 mls/hr IV Q8H [facility] Last Infusion: 05/20/25 04:20 Dose: Infused Vancomycin HCl 1,500 mg/ (Sodium Chloride) 500 mls @ 333.333 mls/hr IV Q24H [facility] Insulin Human Lispro (Insulin Lispro 100 Unit/Ml 3 Ml Vial) 0 unit SUBCUT QIDACHS [facility]; Protocol Last Admin: 05/20/25 07:31 Dose: Not Given Magnesium Hydroxide (Milk Of Magnesia 30 Ml Oral.Susp) 30 ml PO DAILY PRN PRN Reason: Constipation Melatonin (Melatonin 3 Mg Tablet) 6 mg PO BEDTIME PRN PRN Reason: Insomnia Last Admin: 05/19/25 21:22 Dose: 6 mg Ondansetron HCl (Ondansetron Hcl 4 Mg/2 Ml Vial) 4 mg IVPUSH Q8H PRN PRN Reason: Nausea and Vomiting Pharmacy Consult (Consult Rx Vancomycin Dosing) 1 each MISCELLANE DAILY PRN PRN Reason: Consult order Sodium Chloride (0.9 % Sodium Chloride Flush 3 Ml Syringe) 3 ml IVFLUSH [facility] Last Admin: 05/20/25 07:49 Dose: 3 ml Home Medications ?Medication ?Instructions ?Recorded ?Confirmed ?Last Taken ?Type carvedilol 12.5 mg tablet 12.5 mg PO BID 03/29/25 05/19/25 05/19/25 History insulin degludec 100 unit/mL (3 32 unit subcut DAILY 03/29/25 05/19/25 Unknown History mL) subcutaneous pen (Tresiba FlexTouch U-100 insulin) levothyroxine 50 mcg capsule 50 mcg PO DAILY@0600 03/29/25 05/19/25 05/19/25 History pantoprazole 40 mg tablet,delayed 40 mg PO DAILY@0630 03/29/25 05/19/25 05/19/25 History release sacubitril 97 mg-valsartan 103 mg 1 tab PO BID 03/29/25 03/29/25 Unknown History tablet (Entresto) tamsulosin 0.4 mg capsule 0.4 mg PO DAILY 03/29/25 05/19/25 05/19/25 History torsemide 20 mg tablet 40 mg PO BID 03/29/25 03/29/25 Unknown History dulaglutide 1.5 mg/0.5 mL 1.5 mg subcut QWEEK 05/19/25 Unknown History subcutaneous pen injector (Trulicity) insulin lispro 100 unit/mL See Protocol subcut TIDAC 05/19/25 05/19/25 Unknown History subcutaneous pen (Humalog KwikPen (U-100) Insulin) Physical Exam Vital Signs: Vital Signs: Last Vital Signs Temp 98.3 F 05/20/25 07:43 Pulse 94 05/20/25 07:43 Resp 17 05/20/25 07:43 BP 163/86 H 05/20/25 07:43 Pulse Ox 92 05/20/25 07:43 O2 Del Method Room Air 05/20/25 07:43 BMI result Body Mass Index 34.7 Extrem: Other: Patient's left foot swollen to inspection Erythema and wound noted of the great toe of the left foot No lacerations, abrasions, open areas No evidence of infection Patient reports diffuse tenderness to palpation of the left foot and ankle Patient is able to flex and extend the digits of the left foot fully and without difficulty Distal sensation intact Capillary refill brisk Results Labs 05/20/25 05:29 05/20/25 05:29 Labs: Abnormal lab results 05/19/25 05/20/25 05/20/25 Range/Units 17:50 05:29 07:26 RBC 4.38 L (4.60-5.80) X10*6/uL Hgb 13.1 L 12.4 L (14.0-18.0) g/dl Hct 40.5 L 37.4 L (42.0-52.0) % Lymph % (Auto) 18.6 L (20-40) % Eos % (Auto) 9.9 H 10.0 H (0-4) % Eos # (Auto) 0.8 H 0.8 H (0.0-0.4) X10*3/uL ESR 65 H (0-15) MM/HR Anion Gap 11 L (12-20) BUN 18 H (9-16) mg/dL Creatinine 1.47 H 1.52 H (0.5-1.4) mg/dL POC Glucose 133 H (60-115) mg/dL Random Glucose 193 H 139 H (60-115) mg/dL Alkaline Phosphatase 162 H (39-117) U/L C-Reactive Protein 5.48 H (< or = 0.50) mg/dL B-Natriuretic Peptide 103 H (<100) pg/mL H & H 05/19/25 05/20/25 Range/Units 17:50 05:29 Hgb 13.1 L 12.4 L (14.0-18.0) g/dl Hct 40.5 L 37.4 L (42.0-52.0) % All other labs normal. Diagnostic results Ankle/Foot x-ray: report reviewed and image reviewed Assessment and Plan (1) Left leg swelling: Status: Acute (2) Skin ulcer of left great toe: Qualifiers: Non-pressure ulcer stage: limited to breakdown of skin Qualified Code(s): L97.521 - Non-pressure chronic ulcer of other part of left foot limited to breakdown of skin Status: Acute (3) Insulin dependent type 2 diabetes mellitus: Status: Acute Plan 1. Cellulitis of the left lower extremity 2. Skin ulcer of left great toe Patient is educated about this condition Patient is educated about the typical recovery course No acute surgical intervention indicated at this time Continue IV antibiotics For lucency around screw, patient should follow-up with podiatry upon discharge Procedures Date of Service Date of Service: 05/20/25
[2025-05-20] MEDS: Insulin Glargine,Hum.rec.anlog 100 UNIT/ML 10 ML VIAL 20 UNIT SUBCUT (10:19)
[2025-05-20 11:07] LABS: Glucose, Whole Blood 181 mg/dL (60-115)
[2025-05-20] MEDS: guaiFENesin 200 MG/10 ML 10 ML LIQUID PO ×2 (11:12→20:08)
--- NOTE | 2025-05-20 13:03 | P.CONGS_ITS ---
History of Present Illness Consult details Consult date: 05/20/25 Narrative: Very pleasant 65-year-old gentleman presents for vascular evaluation regarding nonhealing ulcer of the left great toe. It is more so on the plantar aspect. Had an x-ray which was concerning for osteomyelitis. Of note he has a history significant for diabetes coronary artery disease CKD 3. He now presents to us for vascular evaluation. Review of Systems 2 Review of Systems: Yes all other systems are reviewed and are negative Constitutional: Constitutional: Reports no additional constitutional complaints ENT: Reports Normal hearing present Cardiovascular: Cardiovascular: Denies chest pain, Denies chest pain at rest, Denies chest pain with activity and Denies pedal edema Respiratory: Respiratory: Denies cough Gastrointestinal: Gastrointestinal: Denies abdominal pain Musculoskeletal: Musculoskeletal: Denies abnormal gait, Denies muscle cramps and Denies radiating pain into limb Integumentary/Breasts: Skin/Breast: Denies skin ulcer and Denies wounds Neurologic: Reports Normal hearing present and Denies abnormal gait Psychiatric: Psychiatric: Reports no additional psychiatric complaints PMFSH Past Medical History Medical History CKD (chronic kidney disease) stage 3, GFR 30-59 ml/min Class 1 obesity Social History Social History Household Members: Spouse Housing: Apartment Do you presently have visiting nurse or other home services: Yes ([employer]) Patient Tobacco Use Status: Never used Tobacco e-Cigarette/Vaping Use: Never Used service: No Meds Allergies Allergy/AdvReac Type Severity Reaction Status Date / Time No Known Drug Allergies Allergy Unknown Verified 05/19/25 16:16 Active Medications: Current Medications Acetaminophen (Acetaminophen 325 Mg Tablet) 650 mg PO Q6H PRN PRN Reason: Pain, Mild 1-3,fever,headache Calcium Carbonate (Calcium Carbonate 750 Mg Tab.Chew) 750 mg PO Q4H PRN PRN Reason: Heartburn Carvedilol (Carvedilol 12.5 Mg Tablet) 12.5 mg PO BID [facility]; Protocol Dextrose (Dextrose 50 % 25 Gm/50 Ml Syringe) 25 gm IVPUSH Q15M PRN; Protocol PRN Reason: per Hypoglycemia Standing Ord. Docusate Sodium (Docusate Sodium 100 Mg Capsule) 100 mg PO BID [facility] Last Admin: 05/20/25 10:19 Dose: 100 mg Enoxaparin Sodium (Enoxaparin Sodium 40 Mg/0.4 Ml Syringe) 40 mg SUBCUT Q24H [facility] Last Admin: 05/19/25 20:17 Dose: 40 mg Glucose (Glucose Gel 15 Gm Gel..Gram.) 15 gm PO Q15M PRN; Protocol PRN Reason: per Hypoglycemia Standing Ord. Guaifenesin (Guaifenesin 200 Mg/10 Ml 10 Ml Liquid) 10 ml PO Q6H PRN PRN Reason: Cough Last Admin: 05/20/25 11:12 Dose: 10 ml Piperacillin Sod/Tazobactam (Sod 4.5 gm/ Sodium Chloride) 100 mls @ 200 mls/hr IV Q8H [facility] Last Infusion: 05/20/25 12:36 Dose: Infused Vancomycin HCl 1,500 mg/ (Sodium Chloride) 500 mls @ 333.333 mls/hr IV Q24H [facility] Insulin Glargine (Insulin Glargine,Hum.Rec.Anlog 100 Unit/Ml 10 Ml Vial) 20 unit SUBCUT DAILY [facility] Last Admin: 05/20/25 10:19 Dose: 20 unit Insulin Human Lispro (Insulin Lispro 100 Unit/Ml 3 Ml Vial) 0 unit SUBCUT QIDACHS [facility]; Protocol Last Admin: 05/20/25 12:01 Dose: 2 unit Levothyroxine Sodium (Levothyroxine Sodium 50 Mcg Tablet) 50 mcg PO DAILY@0600 [facility] Magnesium Hydroxide (Milk Of Magnesia 30 Ml Oral.Susp) 30 ml PO DAILY PRN PRN Reason: Constipation Melatonin (Melatonin 3 Mg Tablet) 6 mg PO BEDTIME PRN PRN Reason: Insomnia Last Admin: 05/19/25 21:22 Dose: 6 mg Omeprazole (Omeprazole 20 Mg Capsule.Dr) 20 mg PO DAILY@0630 [facility] Ondansetron HCl (Ondansetron Hcl 4 Mg/2 Ml Vial) 4 mg IVPUSH Q8H PRN PRN Reason: Nausea and Vomiting Pharmacy Consult (Consult Rx Vancomycin Dosing) 1 each MISCELLANE DAILY PRN PRN Reason: Consult order Senna (Sennosides 8.6 Mg Tablet) 17.2 mg PO BEDTIME PRN PRN Reason: Constipation Sodium Chloride (0.9 % Sodium Chloride Flush 3 Ml Syringe) 3 ml IVFLUSH QSHIFT [facility] Last Admin: 05/20/25 12:05 Dose: 3 ml Tamsulosin HCl (Tamsulosin Hcl 0.4 Mg Capsule) 0.4 mg PO DAILY [facility] Home Medications ?Medication ?Instructions ?Recorded ?Confirmed ?Last Taken ?Type carvedilol 12.5 mg tablet 12.5 mg PO BID 03/29/2504/2805/19/25 History insulin degludec 100 unit/mL (3 32 unit subcut DAILY 0 03/29/25 05/19/25 Unknown History mL) subcutaneous pen (Tresiba FlexTouch U-100 insulin) levothyroxine 50 mcg capsule 50 mcg PO DAILY@0600 12/2205/19/25 05/19/25 History pantoprazole 40 mg tablet,delayed 40 mg PO DAILY@0603/29/25 05/19/25 05/19/25 History release sacubitril 97 mg-valsartan 103 mg 1 tab PO BID 5 03/29/25 Unknown History tablet (Entresto) tamsulosin 0.4 mg capsule 0.4 mg PO DAILY 03/29/2505/19/25 History torsemide 20 mg tablet 40 mg PO BID 03/29/25 Unknown History dulaglutide 1.5 mg/0.5 mL 1.5 mg subcut TU 05/19/2505/04/25 History subcutaneous pen injector (Trulicity) insulin lispro 100 unit/mL See Protocol subcut TIDAC 0 05/19/25 05/19/25 Unknown History subcutaneous pen (Humalog KwikPen (U-100) Insulin) Physical Exam 2 Vital Signs: Vital Signs: Last Vital Signs Temp 98.3 F 05/20/25 07:43 Pulse 94 05/20/25 07:43 Resp 17 05/20/25 07:43 BP 163/86 H 05/20/25 07:43 Pulse Ox 92 05/20/25 07:43 O2 Del Method Room Air 05/20/25 07:43 BMI result Body Mass Index 34.7 Const: General: cooperative, healthy appearing and comfortable O rientation/consciousness: oriented to person, oriented to place and oriented to time HEENT: Head: Yes normal to inspection Neck: Neck: Yes normal visual inspection Carotids: no bruits Chest: Chest palpation & inspection: normal inspection of the chest Resp: Effort & Inspection: normal respiratory effort and able to speak in complete sentences Auscultation: clear to auscultation bilaterally, no crackles, no rales, no rhonchi and no wheezes Cardio: Other: Bilateral palpable dorsalis pedis pulse Rate: regular rate Rhythm: regular rhythm Heart sounds: S1 normal heart sound present and S2 normal heart sound present Bruits: no carotid bruits Peripheral pulses: Peripheral pulses 2+ throughout GI: Inspection: Yes normal to inspection Skin: Other: Left plantar surface dry callus. Wounds: no wounds Hair: normal Neuro: General: oriented to person, oriented to place and oriented to time Cranial nerves: Yes CN's II-XII intact bilaterally and Yes Normal hearing present Cognition (Neuro): normal cognition Motor exam (neuro): 5/5 motor strength present throughout Extrem: Other: venous exam: +2 edema General: No clubbing, No cyanosis and Yes edema Psych: Appearance: grossly normal Mental Status: mental status grossly normal Speech and movement: Normal speech and movement present Results Labs 05/20/25 05:29 05/20/25 05:29 Labs: Abnormal lab results 05/19/25 05/20/25 05/20/25 Range/Units 17:50 05:29 07:26 RBC 4.38 L (4.60-5.80) X10*6/uL Hgb 13.1 L 12.4 L (14.0-18.0) g/dl Hct 40.5 L 37.4 L (42.0-52.0) % Lymph % (Auto) 18.6 L (20-40) % Eos % (Auto) 9.9 H 10.0 H (0-4) % Eos # (Auto) 0.8 H 0.8 H (0.0-0.4) X10*3/uL ESR 65 H (0-15) MM/HR Anion Gap 11 L (12-20) BUN 18 H (9-16) mg/dL Creatinine 1.47 H 1.52 H (0.5-1.4) mg/dL POC Glucose 133 H (60-115) mg/dL Random Glucose 193 H 139 H (60-115) mg/dL Alkaline Phosphatase 162 H (39-117) U/L C-Reactive Protein 5.48 H (< or = 0.50) mg/dL B-Natriuretic Peptide 103 H (<100) pg/mL 05/20/25 Range/Units 11:03 RBC (4.60-5.80) X10*6/uL Hgb (14.0-18.0) g/dl Hct (42.0-52.0) % Lymph % (Auto) (20-40) % Eos % (Auto) (0-4) % Eos # (Auto) (0.0-0.4) X10*3/uL ESR (0-15) MM/HR Anion Gap (12-20) BUN (9-16) mg/dL Creatinine (0.5-1.4) mg/dL POC Glucose 181 H (60-115) mg/dL Random Glucose (60-115) mg/dL Alkaline Phosphatase (39-117) U/L C-Reactive Protein (< or = 0.50) mg/dL B-Natriuretic Peptide (<100) pg/mL Short CBC 05/19/25 05/20/25 Range/Units 17:50 05:29 WBC 7.9 8.3 (4.8-10.8) X10*3/uL Hgb 13.1 L 12.4 L (14.0-18.0) g/dl Hct 40.5 L 37.4 L (42.0-52.0) % Plt Count 302 270 (160-400) X10*3/uL BMP 05/19/25 05/20/25 17:50 05:29 Sodium 138 141 Potassium 4.0 3.8 Chloride 104 104 Carbon Dioxide 27 27 BUN 16 18 H Creatinine 1.47 H 1.52 H Calcium 9.2 8.5 D Liver Function 05/19/25 Range/Units 17:50 Total Bilirubin 0.2 (0.0-1.0) mg/dL AST 29 (5-37) U/L ALT 32 (0-40) U/L Alkaline Phosphatase 162 H (39-117) U/L Albumin 4.1 (3.5-5.0) g/dL All other labs normal. Assessment and Plan (1) Skin ulcer of left great toe: Qualifiers: Non-pressure ulcer stage: limited to breakdown of skin Qualified Code(s): L97.521 - Non-pressure chronic ulcer of other part of left foot limited to breakdown of skin Status: Acute Plan In short patient has osteomyelitis. Appears to be stable from an arterial perspective. Would continue with IV antibiotic therapy and offloading as much as possible. He can follow up with us as an outpatient. Thank you for allowing us to assist in his care. Procedures Date of Service Date of Service: 05/20/25
--- NOTE | 2025-05-20 14:09 | HO.PM.IMPN ---
Subjective Subjective Date of Service: 05/20/25 Interval History: possible left great toe osteomyelitis. Review of Systems foot /toe look similar to h&P pic. no new overnight event. Review of Systems: Yes all other systems are reviewed and are negative Physical Exam Exam: Exam: Appearance: Alert.? Oriented X3.? cvs: rrr, [id number] . res: clear to auscultation ,no rhonchii or wheezing abd: no rebound or guarding ,nt, bs present. ext pulses present , no cyanosis ,left lower ext /toe ulcer area -seems similar h&p pic. neuro: axo3 , nonfocal. Vital Signs: Vital Signs: Last Vital Signs Temp 98.3 F 05/20/25 07:43 Pulse 94 05/20/25 07:43 Resp 17 05/20/25 07:43 BP 163/86 H 05/20/25 07:43 Pulse Ox 92 05/20/25 07:43 O2 Del Method Room Air 05/20/25 07:43 BMI result Body Mass Index 34.7 Objective Data Active Medications Acetaminophen (Acetaminophen 325 Mg Tablet) 650 mg PO Q6H PRN PRN Reason: Pain, Mild 1-3,fever,headache Calcium Carbonate (Calcium Carbonate 750 Mg Tab.Chew) 750 mg PO Q4H PRN PRN Reason: Heartburn Carvedilol (Carvedilol 12.5 Mg Tablet) 12.5 mg PO BID [facility]; Protocol Dextrose (Dextrose 50 % 25 Gm/50 Ml Syringe) 25 gm IVPUSH Q15M PRN; Protocol PRN Reason: per Hypoglycemia Standing Ord. Docusate Sodium (Docusate Sodium 100 Mg Capsule) 100 mg PO BID [facility] Last Admin: 05/20/25 10:19 Dose: 100 mg Documented By: SOFÍA Enoxaparin Sodium (Enoxaparin Sodium 40 Mg/0.4 Ml Syringe) 40 mg SUBCUT Q24H [facility] Last Admin: 05/19/25 20:17 Dose: 40 mg Documented By: MARGARETH Glucose (Glucose Gel 15 Gm Gel..Gram.) 15 gm PO Q15M PRN; Protocol PRN Reason: per Hypoglycemia Standing Ord. Guaifenesin (Guaifenesin 200 Mg/10 Ml 10 Ml Liquid) 10 ml PO Q6H PRN PRN Reason: Cough Last Admin: 05/20/25 11:12 Dose: 10 ml Documented By: TITI Piperacillin Sod/Tazobactam (Sod 4.5 gm/ Sodium Chloride) 100 mls @ 200 mls/hr IV Q8H [facility] Last Infusion: 05/20/25 12:36 Dose: Infused Documented By: SOFÍA Vancomycin HCl 1,500 mg/ (Sodium Chloride) 500 mls @ 333.333 mls/hr IV Q24H [facility] Insulin Glargine (Insulin Glargine,Hum.Rec.Anlog 100 Unit/Ml 10 Ml Vial) 20 unit SUBCUT DAILY [facility] Last Admin: 05/20/25 10:19 Dose: 20 unit Documented By: SOFÍA Insulin Human Lispro (Insulin Lispro 100 Unit/Ml 3 Ml Vial) 0 unit SUBCUT QIDACHS [facility]; Protocol Last Admin: 05/20/25 12:01 Dose: 2 unit Documented By: SOFÍA Levothyroxine Sodium (Levothyroxine Sodium 50 Mcg Tablet) 50 mcg PO DAILY@0600 [facility] Magnesium Hydroxide (Milk Of Magnesia 30 Ml Oral.Susp) 30 ml PO DAILY PRN PRN Reason: Constipation Melatonin (Melatonin 3 Mg Tablet) 6 mg PO BEDTIME PRN PRN Reason: Insomnia Last Admin: 05/19/25 21:22 Dose: 6 mg Documented By: JELLY Omeprazole (Omeprazole 20 Mg Capsule.) 20 mg PO DAILY@0630 [facility] Ondansetron HCl (Ondansetron Hcl 4 Mg/2 Ml Vial) 4 mg IVPUSH Q8H PRN PRN Reason: Nausea and Vomiting Pharmacy Consult (Consult Rx Vancomycin Dosing) 1 each MISCELLANE DAILY PRN PRN Reason: Consult order Senna (Sennosides 8.6 Mg Tablet) 17.2 mg PO BEDTIME PRN PRN Reason: Constipation Sodium Chloride (0.9 % Sodium Chloride Flush 3 Ml Syringe) 3 ml IVFLUSH QSHIFT [facility] Last Admin: 05/20/25 12:05 Dose: 3 ml Documented By: SOFÍA Tamsulosin HCl (Tamsulosin Hcl 0.4 Mg Capsule) 0.4 mg PO DAILY [facility] Labs 05/20/25 05:29 05/20/25 05:29 Labs: Laboratory Results - last 24 hr 05/19/25 05/19/25 05/19/25 17:50 20:03 20:18 MCV 85.6 MCH 27.7 MCHC 32.3 RDW 14.4 Plt Count 302 MPV 9.5 Immature Gran % (Auto) 0.1 Neut % (Auto) 58.1 Lymph % (Auto) 24.0 [place] % (Auto) 7.5 Eos % (Auto) 9.9 H Baso % (Auto) 0.4 Lymph # (Auto) 1.9 [place] # (Auto) 0.6 Eos # (Auto) 0.8 H Baso # (Auto) 0.0 Abs Immat Gran (auto) 0.01 Absolute Neuts (auto) 4.6 Absolute Nucleated RBC 0.000 Nucleated RBC % (auto) 0.0 ESR 65 H Anion Gap 11 L Estim Creat Clear Calc 62.3 Estimated GFR 48 POC Glucose 109 Random Glucose 193 H Lactic Acid 1.1 Calcium 9.2 Magnesium 1.9 Total Bilirubin 0.2 AST 29 ALT 32 Alkaline Phosphatase 162 H C-Reactive Protein 5.48 H B-Natriuretic Peptide 103 H Total Protein 8.0 Albumin 4.1 05/20/25 05/20/25 05/20/25 05:29 07:26 11:03 MCV 85.4 MCH 28.3 MCHC 33.2 RDW 14.4 Plt Count 270 MPV 9.7 Immature Gran % (Auto) 0.4 Neut % (Auto) 62.4 Lymph % (Auto) 18.6 L [place] % (Auto) 8.4 Eos % (Auto) 10.0 H Baso % (Auto) 0.2 Lymph # (Auto) 1.5 [place] # (Auto) 0.7 Eos # (Auto) 0.8 H Baso # (Auto) 0.0 Abs Immat Gran (auto) 0.03 Absolute Neuts (auto) 5.2 Absolute Nucleated RBC 0.000 Nucleated RBC % (auto) 0.0 ESR Anion Gap 14 Estim Creat Clear Calc 60.1 Estimated GFR 46 POC Glucose 133 H 181 H Random Glucose 139 H Lactic Acid Calcium 8.5 D Magnesium Total Bilirubin AST ALT Alkaline Phosphatase C-Reactive Protein B-Natriuretic Peptide Total Protein Albumin Assessment and Plan (1) Acute leg pain: Status: Acute (2) Skin ulcer of left great toe: Status: Acute Plan 65-year-old Kinyarwanda-speaking male with pertinent history of congestive heart failure with reduced ejection fraction, insulin-dependent type 2 diabetes mellitus, CAD status post stents, 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 Left lower extremity cellulitis with infected great toe ulcer: Will admit patient with broad-spectrum IV antibiotics due to extensive infection. No sepsis. Venous duplex negative. X-ray :lucency surrounding the 1st tarsometatarsal joint arthrodesis screw, possibly indicating infection or loosening Insulin-dependent type 2 diabetes mellitus with hyperglycemia: Initiating Accu-Cheks with sliding scale insulin. Reduced home basal insulin once med rec is complete Congestive heart failure with reduced ejection fraction: No decompensation during admission. Continue Entresto, beta-doris and diuretics CKD stage 3: Creatinine at baseline. Continue to monitor COPD/asthma overlap syndrome: No exacerbation during admission. Obesity class 2: Weight loss encouraged BPH: On Flomax Gastroesophageal reflux disease: On PPI Hypothyroidism: On Synthroid ongoing need for stay:Left lower extremity cellulitis with infected great toe ulcer: broad-spectrum IV antibiotics due to extensive infection. Quality Stroke Does the patient have a stroke diagnosis?: No VTE Prior VTE?: No VTE Risk Level:: Medical - moderate - high VTE Device Contraindication: Treatment Not Indicated VTE Drug Contraindication: N/A - Med Ordered
[2025-05-20 15:19] VITALS: BP 159/76; PULSE 81; RESP 17; TEMP 37; O2SAT 93
--- NOTE | 2025-05-20 15:45 | MHC.CM.PN ---
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
[2025-05-20 16:34] LABS: Glucose, Whole Blood 104 mg/dL (60-115)
[2025-05-20 20:00] VITALS: BP 169/77; PULSE 86; RESP 17; TEMP 37.1; O2SAT 95
[2025-05-20 20:07] VITALS: BP 169/77; PULSE 86
[2025-05-20 20:47] LABS: Glucose, Whole Blood 139 mg/dL (60-115)
--- NOTE | 2025-05-20 23:37 | PC.NURSE ---
Pt given robitussin for persistent dry cough at 20:00 with some relief. Pt asked for something else as cough was irritating pt at 2230. Dr. Farrar notified and ordered ever coates for pt.
[2025-05-21 04:00] VITALS: BP 144/63; PULSE 77; RESP 17; TEMP 37; O2SAT 93
[2025-05-21 06:42] LABS: Creatinine Clr Calc Pharmacy 62.5; Estimated Glomerular Filt Rate 48
[2025-05-21 07:23] LABS: Glucose, Whole Blood 106 mg/dL (60-115)
[2025-05-21 07:36] VITALS: BP 153/79; PULSE 67; RESP 17; TEMP 36.5; O2SAT 94
[2025-05-21] MEDS: Insulin Glargine,Hum.rec.anlog 100 UNIT/ML 10 ML VIAL 20 UNIT SUBCUT (08:06)
[2025-05-21] MEDS: 0.9 % Sodium Chloride Flush 3 ML SYRINGE IVFLUSH ×3 (08:09→23:56)
--- NOTE | 2025-05-21 09:07 | HO.WOUND ---
Wound Consult: Initial 65yr old?[place] [facility] [place]- See progress notes and H&P for detailed history.? Wound consult placed for Left Great Toe.? Patient agreeable to assessment and photo documentation.? Left Great Toe Etiology: Diabetic Wound Measurements: 0.3cm x 0.3cm x 0.4cm Wound Bed: pink Drainage / Odor: scant serosang Edges: ? unattached [place] wound: ?thickened and callused No Induration, Fluctuance or Warmth noted Pain: denies reports neuropathy Goals of Treatment: ? Elevate and iodoflex for antimicrobial properties Recommendations: 1. Provide adequate and supplemental nutrition.? 2.When applicable maintain blood glucose levels per Providers order. Left Great Toe - Elevate Left Leg on pillows be sure to float heels.? Cleanse with saline, pat dry. ?Apply Iodosorb / Iodoflex to wound bed cover with gauze and tape. ?Change every other day.?? Iodoflex left at bedside. Note the Iodoflex will be applied brown and over the course of time as the Iodine is absorbed into the wound bed the color will change to yellow / cream signifying time to replace.?? Iodoflex available from wound nurse office. At time of discharge patient should switch to Durafiber to the wound bed and change every other day as well. Recommend follow up out patient Wound Clinic at [address] [place] [id number] and to call for an appointment at time of discharge. [phone].? Re-consult wound care Nurse for wound deterioration or wound changes.
[2025-05-21 10:59] LABS: Glucose, Whole Blood 186 mg/dL (60-115)
--- NOTE | 2025-05-21 13:12 | MHC.CM.PN ---
Per MD rounds patient is not medically cleared to discharge today. DP Home with resumption of [employer] services, and [facility]. May need to take [facility] home at discharge.
--- NOTE | 2025-05-21 15:32 | HO.PM.IMPN ---
Subjective Subjective Date of Service: 05/21/25 Interval History: possible left great toe osteomyelitis. Review of Systems foot /toe look similar to h&P pic. no new overnight event. Review of Systems: Yes all other systems are reviewed and are negative Physical Exam Exam: Exam: Appearance: Alert.? Oriented X3.? cvs: [id number], [id number] . res: clear to auscultation ,no rhonchii or wheezing abd: no rebound or guarding ,nt, bs present. ext pulses present , no cyanosis ,left lower ext /toe ulcer area -seems similar h&p pic. neuro: axo3 , nonfocal. Vital Signs: Vital Signs: Last Vital Signs Temp 97.7 F 05/21/25 07:36 Pulse 67 05/21/25 07:36 Resp 17 05/21/25 07:36 BP 153/79 H 05/21/25 07:36 Pulse Ox 94 05/21/25 07:36 O2 Del Method Room Air 05/21/25 07:36 BMI result Body Mass Index 34.7 Objective Data Active Medications Acetaminophen (Acetaminophen 325 Mg Tablet) 650 mg PO Q6H PRN PRN Reason: Pain, Mild 1-3,fever,headache Albuterol Sulfate (Albuterol Sulfate 90 Mcg 8 Gm Inhaler) 2 puff INHALE Q4H PRN PRN Reason: Shortness Of Breath Or Wheezing Aripiprazole (Aripiprazole 2 Mg Tablet) 2 mg PO DAILY [facility] Last Admin: 05/21/25 08:07 Dose: 2 mg Documented By: TITI Atorvastatin Calcium (Atorvastatin Calcium 80 Mg Tablet) 80 mg PO BEDTIME [facility] Benzonatate (Benzonatate 100 Mg Capsule) 200 mg PO TID PRN PRN Reason: Cough Last Admin: 05/21/25 03:44 Dose: 200 mg Documented By: IAN Calcium Carbonate (Calcium Carbonate 750 Mg Tab.Chew) 750 mg PO Q4H PRN PRN Reason: Heartburn Carvedilol (Carvedilol 12.5 Mg Tablet) 12.5 mg PO BID [facility]; Protocol Last Admin: 05/21/25 08:07 Dose: 12.5 mg Documented By: TITI Dextrose (Dextrose 50 % 25 Gm/50 Ml Syringe) 25 gm IVPUSH Q15M PRN; Protocol PRN Reason: per Hypoglycemia Standing Ord. Docusate Sodium (Docusate Sodium 100 Mg Capsule) 100 mg PO BID [facility] Last Admin: 05/21/25 08:07 Dose: 100 mg Documented By: TITI Enoxaparin Sodium (Enoxaparin Sodium 40 Mg/0.4 Ml Syringe) 40 mg SUBCUT Q24H [facility] Last Admin: 05/20/25 20:07 Dose: 40 mg Documented By: IAN Gabapentin (Gabapentin 100 Mg Capsule) 100 mg PO TID [facility] Last Admin: 05/21/25 14:58 Dose: 100 mg Documented By: TITI Glucose (Glucose Gel 15 Gm Gel..Gram.) 15 gm PO Q15M PRN; Protocol PRN Reason: per Hypoglycemia Standing Ord. Guaifenesin (Guaifenesin 200 Mg/10 Ml 10 Ml Liquid) 10 ml PO Q6H PRN PRN Reason: Cough Last Admin: 05/20/25 20:08 Dose: 10 ml Documented By: IAN Piperacillin Sod/Tazobactam (Sod 4.5 gm/ Sodium Chloride) 100 mls @ 200 mls/hr IV Q8H [facility] Last Infusion: 05/21/25 12:12 Dose: Infused Documented By: TITI Vancomycin HCl 1,500 mg/ (Sodium Chloride) 500 mls @ 333.333 mls/hr IV Q24H [facility] Last Infusion: 05/20/25 22:41 Dose: Infused Documented By: IAN Insulin Glargine (Insulin Glargine,Hum.Rec.Anlog 100 Unit/Ml 10 Ml Vial) 20 unit SUBCUT DAILY [facility] Last Admin: 05/21/25 08:06 Dose: 20 unit Documented By: TITI Insulin Human Lispro (Insulin Lispro 100 Unit/Ml 3 Ml Vial) 0 unit SUBCUT QIDACHS [facility]; Protocol Last Admin: 05/21/25 11:42 Dose: 2 unit Documented By: TITI Levothyroxine Sodium (Levothyroxine Sodium 50 Mcg Tablet) 50 mcg PO DAILY@0600 [facility] Last Admin: 05/21/25 05:41 Dose: 50 mcg Documented By: IAN Magnesium Hydroxide (Milk Of Magnesia 30 Ml Oral.Susp) 30 ml PO DAILY PRN PRN Reason: Constipation Melatonin (Melatonin 3 Mg Tablet) 6 mg PO BEDTIME PRN PRN Reason: Insomnia Last Admin: 05/20/25 20:06 Dose: 6 mg Documented By: IAN Non-Formulary Medication (Dulaglutide [Trulicity]) 1.5 mg SUBCUT [facility] Omeprazole (Omeprazole 20 Mg Capsule.) 20 mg PO DAILY@0630 [facility] Last Admin: 05/21/25 05:41 Dose: 20 mg Documented By: IAN Ondansetron HCl (Ondansetron Hcl 4 Mg/2 Ml Vial) 4 mg IVPUSH Q8H PRN PRN Reason: Nausea and Vomiting Pharmacy Consult (Consult Rx Vancomycin Dosing) 1 each MISCELLANE DAILY PRN PRN Reason: Consult order Senna (Sennosides 8.6 Mg Tablet) 17.2 mg PO BEDTIME PRN PRN Reason: Constipation Sodium Chloride (0.9 % Sodium Chloride Flush 3 Ml Syringe) 3 ml IVFLUSH QSHIFT [facility] Last Admin: 05/21/25 15:00 Dose: 3 ml Documented By: TITI Tamsulosin HCl (Tamsulosin Hcl 0.4 Mg Capsule) 0.4 mg PO DAILY [facility] Last Admin: 05/21/25 08:07 Dose: 0.4 mg Documented By: TITI Torsemide (Torsemide 20 Mg Tablet) 40 mg PO BID [facility]; Protocol Last Admin: 05/21/25 08:06 Dose: 40 mg Documented By: TITI Labs 05/20/25 05:29 05/21/25 06:05 Labs: Laboratory Results - last 24 hr 05/20/25 05/20/25 05/21/25 16:31 20:39 06:05 Hold Purple Top SEE NOTE Estim Creat Clear Calc 62.5 Estimated GFR 48 POC Glucose 104 139 H 05/21/25 05/21/25 07:19 10:55 Hold Purple Top Estim Creat Clear Calc Estimated GFR POC Glucose 106 186 H Microbiology Microbiology Results: Microbiology 05/19/25 18:56 Blood Culture - Preliminary Blood - Venous No growth after 24 hours. 05/19/25 19:11 Blood Culture - Preliminary Blood - Venous No growth after 24 hours. Assessment and Plan (1) Acute leg pain: Status: Acute (2) Skin ulcer of left great toe: Status: Acute Plan 65-year-old Swedish-speaking male with pertinent history of congestive heart failure with reduced ejection fraction, insulin-dependent type 2 diabetes mellitus, CAD status post stents, 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 Left lower extremity cellulitis with infected great toe ulcer: No sepsis. Venous duplex negative. X-ray :lucency surrounding the 1st tarsometatarsal joint arthrodesis screw, possibly indicating infection or loosening continue broad-spectrum IV antibiotics due to extensive infection. Insulin-dependent type 2 diabetes mellitus with hyperglycemia: Initiating Accu-Cheks with sliding scale insulin. Reduced home basal insulin once med rec is complete Congestive heart failure with reduced ejection fraction: No decompensation during admission. Continue Entresto, beta-doris and diuretics CKD stage 3: Creatinine at baseline. Continue to monitor COPD/asthma overlap syndrome: No exacerbation during admission. Obesity class 2: Weight loss encouraged BPH: On Flomax Gastroesophageal reflux disease: On PPI Hypothyroidism: On Synthroid ongoing need for stay:Left lower extremity cellulitis with infected great toe ulcer: broad-spectrum IV antibiotics due to extensive infection. Quality Stroke Does the patient have a stroke diagnosis?: No VTE Prior VTE?: No VTE Risk Level:: Medical - moderate - high VTE Device Contraindication: Treatment Not Indicated VTE Drug Contraindication: N/A - Med Ordered
[2025-05-21 15:34] VITALS: BP 134/60; PULSE 78; RESP 17; TEMP 36.6; O2SAT 94
[2025-05-21 16:18] LABS: Anion Gap 12 (12-20); Blood Urea Nitrogen 19 mg/dL (9-16); Calcium 8.3 mg/dL (8.4-10.2); Carbon Dioxide 26 mmol/L (22-29); Chloride 104 mmol/L (96-108); Potassium 4.0 mmol/L (3.3-5.1); Sodium 138 mmol/L (135-145)
[2025-05-21 16:31] LABS: Glucose, Whole Blood 168 mg/dL (60-115)
[2025-05-21 19:27] VITALS: BP 126/67; PULSE 78; RESP 18; TEMP 36.3; O2SAT 98
[2025-05-21 20:26] LABS: Glucose, Whole Blood 181 mg/dL (60-115)
[2025-05-21 20:28] VITALS: PULSE 73; RESP 20; O2SAT 97
[2025-05-21] MEDS: Albuterol Sulfate 90 MCG 8 GM INHALER 2 PUFF INHALE (20:28)
[2025-05-22 04:00] VITALS: BP 154/71; PULSE 78; RESP 18; TEMP 36.6; O2SAT 97
[2025-05-22 07:12] LABS: Glucose, Whole Blood 157 mg/dL (60-115)
[2025-05-22 07:22] VITALS: BP 122/73; PULSE 71; RESP 18; TEMP 36.8; O2SAT 96
[2025-05-22 07:33] LABS: Creatinine Clr Calc Pharmacy 50.2; Estimated Glomerular Filt Rate 38
[2025-05-22] MEDS: Insulin Glargine,Hum.rec.anlog 100 UNIT/ML 10 ML VIAL 20 UNIT SUBCUT (07:55)
[2025-05-22] MEDS: 0.9 % Sodium Chloride Flush 3 ML SYRINGE IVFLUSH ×3 (07:59→20:40)
--- NOTE | 2025-05-22 10:43 | HO.SKINPHOTO ---
Location:Left Big Toe Dressing changed with iodoflex, gauze, tape. No drainage, no odor noted.
[2025-05-22 10:47] LABS: Anion Gap 15 (12-20); Blood Urea Nitrogen 20 mg/dL (9-16); Calcium 8.9 mg/dL (8.4-10.2); Carbon Dioxide 27 mmol/L (22-29); Chloride 100 mmol/L (96-108); Potassium 4.3 mmol/L (3.3-5.1); Sodium 138 mmol/L (135-145)
[2025-05-22 11:07] LABS: Glucose, Whole Blood 214 mg/dL (60-115)
--- NOTE | 2025-05-22 12:32 | PC.NURSE ---
Patient's spouse and child visiting. Upon entering room child and patient were in room and no spouse. Patient primarily speaks Lebanese, PCT informed patient to call spouse to come back to the room. Family member returned to room, Oil Distributor came to bedside and explained to patient and that the child can not be left alone in room with patient and needs to be with another responsible adult at all times for safety of the child and patient. Patient and spouse verbalized understanding.
--- NOTE | 2025-05-22 13:06 | HO.PM.IMPN ---
Subjective Subjective Date of Service: 05/22/25 Interval History: possible left great toe osteomyelitis. Review of Systems foot /toe look similar . no new overnight event. Physical Exam Exam: Exam: Appearance: Alert.? Oriented X3.? cvs: [id number], [id number] . res: clear to auscultation ,no rhonchii or wheezing abd: no rebound or guarding ,nt, bs present. ext pulses present , no cyanosis ,left lower ext /toe ulcer area -seems similar h&p pic. neuro: axo3 , nonfocal. Vital Signs: Vital Signs: Last Vital Signs Temp 98.2 F 05/22/25 07:22 Pulse 71 05/22/25 07:22 Resp 18 05/22/25 07:22 BP 122/73 05/22/25 07:22 Pulse Ox 96 05/22/25 07:22 O2 Del Method Room Air 05/22/25 07:22 BMI result Body Mass Index 34.7 Objective Data Active Medications Acetaminophen (Acetaminophen 325 Mg Tablet) 650 mg PO Q6H PRN PRN Reason: Pain, Mild 1-3,fever,headache Albuterol Sulfate (Albuterol Sulfate 90 Mcg 8 Gm Inhaler) 2 puff INHALE Q4H PRN PRN Reason: Shortness Of Breath Or Wheezing Last Admin: 05/21/25 20:28 Dose: 2 puff Documented By: DAVID Aripiprazole (Aripiprazole 2 Mg Tablet) 2 mg PO DAILY [facility] Last Admin: 05/22/25 07:57 Dose: 2 mg Documented By: DANNY Atorvastatin Calcium (Atorvastatin Calcium 80 Mg Tablet) 80 mg PO BEDTIME [facility] On Hold: 05/22/25 11:24 Last Admin: 05/21/25 20:04 Dose: 80 mg Documented By: SARITA Benzonatate (Benzonatate 100 Mg Capsule) 200 mg PO TID PRN PRN Reason: Cough Last Admin: 05/21/25 20:04 Dose: 200 mg Documented By: SARITA Calcium Carbonate (Calcium Carbonate 750 Mg Tab.Chew) 750 mg PO Q4H PRN PRN Reason: Heartburn Carvedilol (Carvedilol 12.5 Mg Tablet) 12.5 mg PO BID [facility]; Protocol Last Admin: 05/22/25 07:56 Dose: 12.5 mg Documented By: DANNY Dextrose (Dextrose 50 % 25 Gm/50 Ml Syringe) 25 gm IVPUSH Q15M PRN; Protocol PRN Reason: per Hypoglycemia Standing Ord. Docusate Sodium (Docusate Sodium 100 Mg Capsule) 100 mg PO BID [facility] Last Admin: 05/22/25 07:57 Dose: 100 mg Documented By: DANNY Enoxaparin Sodium (Enoxaparin Sodium 40 Mg/0.4 Ml Syringe) 40 mg SUBCUT Q24H [facility] Last Admin: 05/21/25 20:04 Dose: 40 mg Documented By: SARITA Gabapentin (Gabapentin 100 Mg Capsule) 100 mg PO TID [facility] Last Admin: 05/22/25 07:56 Dose: 100 mg Documented By: DANNY Glucose (Glucose Gel 15 Gm Gel..Gram.) 15 gm PO Q15M PRN; Protocol PRN Reason: per Hypoglycemia Standing Ord. Guaifenesin (Guaifenesin 200 Mg/10 Ml 10 Ml Liquid) 10 ml PO Q6H PRN PRN Reason: Cough Last Admin: 05/20/25 20:08 Dose: 10 ml Documented By: IAN Piperacillin Sod/Tazobactam (Sod 4.5 gm/ Sodium Chloride) 100 mls @ 200 mls/hr IV Q8H [facility] Last Infusion: 05/22/25 12:20 Dose: Infused Documented By: DANNY Daptomycin 650 mg/ Sodium (Chloride) 63 mls @ 99.736 mls/hr IV Q24H [facility] Last Admin: 05/22/25 12:26 Dose: 99.74 mls/hr Documented By: DANNY Insulin Glargine (Insulin Glargine,Hum.Rec.Anlog 100 Unit/Ml 10 Ml Vial) 20 unit SUBCUT DAILY [facility] Last Admin: 05/22/25 07:55 Dose: 20 unit Documented By: DANNY Insulin Human Lispro (Insulin Lispro 100 Unit/Ml 3 Ml Vial) 0 unit SUBCUT QIDACHS [facility]; Protocol Last Admin: 05/22/25 11:19 Dose: 4 unit Documented By: DANNY Levothyroxine Sodium (Levothyroxine Sodium 50 Mcg Tablet) 50 mcg PO DAILY@0600 [facility] Last Admin: 05/22/25 06:17 Dose: 50 mcg Documented By: LENO Magnesium Hydroxide (Milk Of Magnesia 30 Ml Oral.Susp) 30 ml PO DAILY PRN PRN Reason: Constipation Melatonin (Melatonin 3 Mg Tablet) 6 mg PO BEDTIME PRN PRN Reason: Insomnia Last Admin: 05/20/25 20:06 Dose: 6 mg Documented By: IAN Non-Formulary Medication (Dulaglutide [Trulicity]) 1.5 mg SUBCUT [facility] Omeprazole (Omeprazole 20 Mg Capsule.) 20 mg PO DAILY@0630 [facility] Last Admin: 05/22/25 06:17 Dose: 20 mg Documented By: LENO Ondansetron HCl (Ondansetron Hcl 4 Mg/2 Ml Vial) 4 mg IVPUSH Q8H PRN PRN Reason: Nausea and Vomiting Senna (Sennosides 8.6 Mg Tablet) 17.2 mg PO BEDTIME PRN PRN Reason: Constipation Sodium Chloride (0.9 % Sodium Chloride Flush 3 Ml Syringe) [facility] Last Admin: 05/22/25 07:59 Dose: 3 ml Documented By: DANNY Tamsulosin HCl (Tamsulosin Hcl 0.4 Mg Capsule) 0.4 mg PO DAILY [facility] Last Admin: 05/22/25 07:57 Dose: 0.4 mg Documented By: DANNY Torsemide (Torsemide 20 Mg Tablet) 40 mg PO BID [facility]; Protocol Last Admin: 05/22/25 07:57 Dose: 40 mg Documented By: DANNY Zolpidem Tartrate (Zolpidem Tartrate 5 Mg Tablet) 5 mg PO BEDTIME PRN PRN Reason: Insomnia Last Admin: 05/21/25 20:04 Dose: 5 mg Documented By: TUMASY Labs 05/20/25 05:29 05/22/25 06:49 Labs: Laboratory Results - last 24 hr 05/21/25 05/21/25 05/21/25 06:05 16:27 18:15 Hold Purple Top Anion Gap 12 Estim Creat Clear Calc 62.5 Estimated GFR 48 POC Glucose 168 H Random Glucose 110 Calcium 8.3 L Total Creatine Kinase Random Vancomycin 12.8 L 05/21/25 05/22/25 05/22/25 20:23 06:49 07:06 Hold Purple Top SEE NOTE Anion Gap 15 Estim Creat Clear Calc 50.2 Estimated GFR 38 POC Glucose 181 H 157 H Random Glucose 169 H Calcium 8.9 D Total Creatine Kinase 112 Random Vancomycin 05/22/25 11:04 Hold Purple Top Anion Gap Estim Creat Clear Calc Estimated GFR POC Glucose 214 H Random Glucose Calcium Total Creatine Kinase Random Vancomycin Microbiology Microbiology Results: Microbiology 05/19/25 18:56 Blood Culture - Preliminary Blood - Venous No growth after 48 hours. 05/19/25 19:11 Blood Culture - Preliminary Blood - Venous No growth after 48 hours. Assessment and Plan (1) Acute leg pain: Status: Acute (2) Skin ulcer of left great toe: Status: Acute Plan 65-year-old Tunisian-speaking male with pertinent history of congestive heart failure with reduced ejection fraction, insulin-dependent type 2 diabetes mellitus, CAD status post stents, 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 Left lower extremity cellulitis with infected great toe ulcer: No sepsis. Venous duplex negative. X-ray :lucency surrounding the 1st tarsometatarsal joint arthrodesis screw, possibly indicating infection or loosening continue broad-spectrum IV antibiotics due to extensive infection. Insulin-dependent type 2 diabetes mellitus with hyperglycemia: Initiating Accu-Cheks with sliding scale insulin. Reduced home basal insulin once med rec is complete Congestive heart failure with reduced ejection fraction: No decompensation during admission. Continue coreg. hold Entresto, diuretics-creatinine slightly up. CKD stage 3: Creatinine is near baseline. cr is 1.5-1.6 range,slightly 1.8. Continue to monitor. hold Entresto, diuretics-creatinine slightly up. nephrology eval. COPD/asthma overlap syndrome: No exacerbation during admission. Obesity class 2: Weight loss encouraged BPH: On Flomax Gastroesophageal reflux disease: On PPI. Hypothyroidism: On Synthroid ongoing need for stay:Left lower extremity cellulitis with infected great toe ulcer: broad-spectrum IV antibiotics , moniter renal function electrolytes . Quality Stroke Does the patient have a stroke diagnosis?: No VTE Prior VTE?: No VTE Risk Level:: Medical - moderate - high VTE Device Contraindication: Treatment Not Indicated VTE Drug Contraindication: N/A - Med Ordered
[2025-05-22 15:12] VITALS: BP 145/81; PULSE 78; RESP 18; TEMP 36.4; O2SAT 94
[2025-05-22 16:14] LABS: Glucose, Whole Blood 196 mg/dL (60-115)
[2025-05-22 19:40] VITALS: BP 133/83; PULSE 77; RESP 18; TEMP 36.6; O2SAT 95
[2025-05-22 20:01] LABS: Glucose, Whole Blood 126 mg/dL (60-115)
[2025-05-22 20:35] VITALS: BP 133/83
[2025-05-22 20:36] VITALS: BP 133/83; PULSE 77
[2025-05-23 03:13] VITALS: BP 130/61; PULSE 80; RESP 18; TEMP 36.5; O2SAT 96
[2025-05-23 07:11] LABS: Glucose, Whole Blood 124 mg/dL (60-115)
[2025-05-23 07:24] VITALS: BP 120/63; PULSE 67; RESP 18; TEMP 36.1; O2SAT 92
[2025-05-23] MEDS: Insulin Glargine,Hum.rec.anlog 100 UNIT/ML 10 ML VIAL 20 UNIT SUBCUT (07:45)
[2025-05-23] MEDS: 0.9 % Sodium Chloride Flush 3 ML SYRINGE IVFLUSH ×3 (07:46→20:19)
[2025-05-23 11:12] LABS: Glucose, Whole Blood 222 mg/dL (60-115)
--- NOTE | 2025-05-23 12:10 | PC.NURSE ---
When preparing 12:00 Zosyn dose for administration, there was 50mL left in previous infusion bag of Zosyn that was primed in pump from previous shift administration. Provider Jacob notified via [employer] that previous 5am dose infusion did not appear to be infused completely due to remaining in bag. Previous bag disposed of, no new orders.
--- NOTE | 2025-05-23 15:00 | HO.SKINPHOTO ---
Location: Left Big toe Dressing changed today due to patient took a shower and previous dressing got wet. Area cleaned with normal saline, pat dry, iodoflex placed, gauze, gauze wrap and tape. No drainage noted, no odor.
[2025-05-23 15:33] VITALS: BP 154/84; PULSE 68; RESP 14; TEMP 36.6; O2SAT 98
[2025-05-23 16:02] LABS: Glucose, Whole Blood 147 mg/dL (60-115)
--- NOTE | 2025-05-23 18:05 | P.PNIM_ITS ---
Subjective Subjective Date of Service: 05/23/25 Interval History: foot infection Review of Systems seems improving denies new c/o Physical Exam 2 Exam: Exam: Appearance: Alert.? Oriented X3.? cvs: [id number], [id number] . res: clear to auscultation ,no rhonchii or wheezing abd: no rebound or guarding ,nt, bs present. ext pulses present , no cyanosis ,left lower ext /toe ulcer area -seems similar h&p pic. neuro: axo3 , nonfocal. Vital Signs: Vital Signs: Last Vital Signs Temp 97.8 F 05/23/25 15:33 Pulse 68 05/23/25 15:33 Resp 14 05/23/25 15:33 BP 154/84 H 05/23/25 15:33 Pulse Ox 98 05/23/25 15:33 O2 Del Method Room Air 05/23/25 15:33 BMI result Body Mass Index 34.7 Objective Data Active Medications Acetaminophen (Acetaminophen 325 Mg Tablet) 650 mg PO Q6H PRN PRN Reason: Pain, Mild 1-3,fever,headache Last Admin: 05/23/25 05:44 Dose: 650 mg Documented By: PEGGY Comments: per pt request for headache Albuterol Sulfate (Albuterol Sulfate 90 Mcg 8 Gm Inhaler) 2 puff INHALE Q4H PRN PRN Reason: Shortness Of Breath Or Wheezing Last Admin: 05/21/25 20:28 Dose: 2 puff Documented By: DAVID Aripiprazole (Aripiprazole 2 Mg Tablet) 2 mg PO DAILY [facility] Last Admin: 05/23/25 07:45 Dose: 2 mg Documented By: DANNY Atorvastatin Calcium (Atorvastatin Calcium 80 Mg Tablet) 80 mg PO BEDTIME [facility] On Hold: 05/22/25 11:24 Last Admin: 05/21/25 20:04 Dose: 80 mg Documented By: SURINDERASY Benzonatate (Benzonatate 100 Mg Capsule) 200 mg PO TID PRN PRN Reason: Cough Last Admin: 05/21/25 20:04 Dose: 200 mg Documented By: SARITA Calcium Carbonate (Calcium Carbonate 750 Mg Tab.Chew) 750 mg PO Q4H PRN PRN Reason: Heartburn Carvedilol (Carvedilol 12.5 Mg Tablet) 12.5 mg PO BID [facility]; Protocol Last Admin: 05/23/25 07:45 Dose: 12.5 mg Documented By: DANNY Dextrose (Dextrose 50 % 25 Gm/50 Ml Syringe) 25 gm IVPUSH Q15M PRN; Protocol PRN Reason: per Hypoglycemia Standing Ord. Docusate Sodium (Docusate Sodium 100 Mg Capsule) 100 mg PO BID [facility] Last Admin: 05/23/25 07:45 Dose: 100 mg Documented By: DANNY Enoxaparin Sodium (Enoxaparin Sodium 40 Mg/0.4 Ml Syringe) 40 mg SUBCUT Q24H [facility] Last Admin: 05/22/25 20:36 Dose: 40 mg Documented By: PEGGY Gabapentin (Gabapentin 100 Mg Capsule) 100 mg PO TID [facility] Last Admin: 05/23/25 14:52 Dose: 100 mg Documented By: DANNY Glucose (Glucose Gel 15 Gm Gel..Gram.) 15 gm PO Q15M PRN; Protocol PRN Reason: per Hypoglycemia Standing Ord. Guaifenesin (Guaifenesin 200 Mg/10 Ml 10 Ml Liquid) 10 ml PO Q6H PRN PRN Reason: Cough Last Admin: 05/20/25 20:08 Dose: 10 ml Documented By: IAN Piperacillin Sod/Tazobactam (Sod 4.5 gm/ Sodium Chloride) 100 mls @ 200 mls/hr IV Q8H [facility] Last Infusion: 05/23/25 12:09 Dose: Infused Documented By: DANNY Daptomycin 650 mg/ Sodium (Chloride) 63 mls @ 99.736 mls/hr IV Q24H [facility] Last Infusion: 05/23/25 15:36 Dose: Infused Documented By: DANNY Insulin Glargine (Insulin Glargine,Hum.Rec.Anlog 100 Unit/Ml 10 Ml Vial) 20 unit SUBCUT DAILY [facility] Last Admin: 05/23/25 07:45 Dose: 20 unit Documented By: DANNY Insulin Human Lispro (Insulin Lispro 100 Unit/Ml 3 Ml Vial) 0 unit SUBCUT QIDACHS [facility]; Protocol Last Admin: 05/23/25 16:05 Dose: Not Given Documented By: DANNY Non-Admin Reason: No Insulin Coverage Levothyroxine Sodium (Levothyroxine Sodium 50 Mcg Tablet) 50 mcg PO DAILY@0600 [facility] Last Admin: 05/23/25 05:44 Dose: 50 mcg Documented By: PEGGY Magnesium Hydroxide (Milk Of Magnesia 30 Ml Oral.Susp) 30 ml PO DAILY PRN PRN Reason: Constipation Melatonin (Melatonin 3 Mg Tablet) 6 mg PO BEDTIME PRN PRN Reason: Insomnia Last Admin: 05/20/25 20:06 Dose: 6 mg Documented By: IAN Non-Formulary Medication (Dulaglutide [Trulicity]) 1.5 mg SUBCUT [facility] Omeprazole (Omeprazole 20 Mg Capsule.Dr) 20 mg PO DAILY@0630 [facility] Last Admin: 05/23/25 05:44 Dose: 20 mg Documented By: PEGGY Ondansetron HCl (Ondansetron Hcl 4 Mg/2 Ml Vial) 4 mg IVPUSH Q8H PRN PRN Reason: Nausea and Vomiting Senna (Sennosides 8.6 Mg Tablet) 17.2 mg PO BEDTIME PRN PRN Reason: Constipation Sodium Chloride (0.9 % Sodium Chloride Flush 3 Ml Syringe) [facility] Last Admin: 05/23/25 14:52 Dose: 3 ml Documented By: DANNY Tamsulosin HCl (Tamsulosin Hcl 0.4 Mg Capsule) 0.4 mg PO DAILY [facility] Last Admin: 05/23/25 07:45 Dose: 0.4 mg Documented By: DANNY Torsemide (Torsemide 20 Mg Tablet) 40 mg PO BID [facility]; Protocol Last Admin: 05/23/25 07:44 Dose: 40 mg Documented By: DANNY Zolpidem Tartrate (Zolpidem Tartrate 5 Mg Tablet) 5 mg PO BEDTIME PRN PRN Reason: Insomnia Last Admin: 05/21/25 20:04 Dose: 5 mg Documented By: TUMASY Labs 05/20/25 05:29 05/22/25 06:49 Labs: Laboratory Results - last 24 hr 05/22/25 05/23/25 05/23/25 19:55 07:06 11:08 POC Glucose 126 H 124 H 222 H 05/23/25 15:59 POC Glucose 147 H Assessment and Plan (1) Acute leg pain: Status: Acute (2) Skin ulcer of left great toe: Status: Acute Plan 65-year-old Mosotho-speaking male with pertinent history of congestive heart failure with reduced ejection fraction, insulin-dependent type 2 diabetes mellitus, CAD status post stents, 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 Left lower extremity cellulitis with infected great toe ulcer: No sepsis. Venous duplex negative. X-ray :lucency surrounding the 1st tarsometatarsal joint arthrodesis screw, possibly indicating infection or loosening continue broad-spectrum IV antibiotics due to extensive infection. Insulin-dependent type 2 diabetes mellitus with hyperglycemia: Initiating Accu- Cheks with sliding scale insulin. Reduced home basal insulin once med rec is complete Congestive heart failure with reduced ejection fraction: No decompensation during admission. Continue coreg. hold Entresto, diuretics-creatinine slightly up. CKD stage 3: Creatinine is near baseline. cr is 1.5-1.6 range,slightly 1.8. Continue to monitor. hold Entresto, diuretics-creatinine slightly up. nephrology eval. COPD/asthma overlap syndrome: No exacerbation during admission. Obesity class 2: Weight loss encouraged BPH: On Flomax Gastroesophageal reflux disease: On PPI. Hypothyroidism: On Synthroid ongoing need for stay:Left lower extremity cellulitis with infected great toe ulcer: broad-spectrum IV antibiotics , moniter renal function electrolytes . Quality Stroke Does the patient have a stroke diagnosis?: No VTE Prior VTE?: No VTE Risk Level:: Medical - moderate - high VTE Device Contraindication: Treatment Not Indicated VTE Drug Contraindication: N/A - Med Ordered
[2025-05-23 19:25] VITALS: BP 147/66; PULSE 80; RESP 18; TEMP 36.3; O2SAT 97
[2025-05-23 20:00] LABS: Glucose, Whole Blood 170 mg/dL (60-115)
[2025-05-23] MEDS: guaiFENesin 200 MG/10 ML 10 ML LIQUID PO (20:16)
[2025-05-24 04:00] VITALS: BP 145/73; PULSE 90; RESP 18; TEMP 36.4; O2SAT 94
[2025-05-24 07:16] LABS: Glucose, Whole Blood 192 mg/dL (60-115)
[2025-05-24 07:19] VITALS: BP 133/75; PULSE 84; RESP 16; TEMP 36.8; O2SAT 97
[2025-05-24] MEDS: Insulin Glargine,Hum.rec.anlog 100 UNIT/ML 10 ML VIAL 20 UNIT SUBCUT (07:46)
[2025-05-24] MEDS: 0.9 % Sodium Chloride Flush 3 ML SYRINGE IVFLUSH ×3 (07:49→20:17)
[2025-05-24 09:13] LABS: Anion Gap 15 (12-20); Blood Urea Nitrogen 26 mg/dL (9-16); Calcium 8.9 mg/dL (8.4-10.2); Carbon Dioxide 26 mmol/L (22-29); Chloride 100 mmol/L (96-108); Creatinine Clr Calc Pharmacy 46.1; Estimated Glomerular Filt Rate 34; Potassium 4.1 mmol/L (3.3-5.1); Sodium 137 mmol/L (135-145)
[2025-05-24 11:36] LABS: Glucose, Whole Blood 219 mg/dL (60-115)
--- NOTE | 2025-05-24 11:43 | PM.CNNEP ---
History of Present Illness Reason for Consult Consult date: 05/24/25 Chief Complaint Chief complaint: foot infection History of Present Illness Narrative: Pt is a 65 y/o male with a medical history of CKD3, HFrEF, DMII, CAD s/p stenting, COPD, cardiomyopathy, BPH, hypothyroidism. Presented 05/19 with LLE cellulitis, blood cultures negative. Nephrology consulted for PICC line clearance in setting of CKD- he will need long-term IV antibiotics for cellulitis with infected great toe. creatinine has increased to 1.98, was 1.82 on 05/22, 1.46 on 05/21. 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 Bedside US per Dr Jaeger shows collapsed IVC. entresto also currently on hold. Patient states he has some mild abdominal pain at bedside, otherwise no complaints. Review of Systems Review of Systems Yes all other systems are reviewed and are negative PMFSH Past Medical History Medical History (Updated 05/24/25 @ 11:50 by Nataliia Devlin, DNP, [employer] APPRENTICE-BC) CKD (chronic kidney disease) stage 3, GFR 30-59 ml/min Class 1 obesity Social History Social History Household Members: Spouse Housing: Apartment Do you presently have visiting nurse or other home services: Yes ([employer]) Patient Tobacco Use Status: Never used Tobacco e-Cigarette/Vaping Use: Never Used service: No Meds Allergies Allergy/AdvReac Type Severity Reaction Status Date / Time No Known Drug Allergies Allergy Unknown Verified 05/19/25 16:16 Active Medications: Current Medications Acetaminophen (Acetaminophen 325 Mg Tablet) 650 mg PO Q6H PRN PRN Reason: Pain, Mild 1-3,fever,headache Last Admin: 05/23/25 05:44 Dose: 650 mg Albuterol Sulfate (Albuterol Sulfate 90 Mcg 8 Gm Inhaler) 2 puff INHALE Q4H PRN PRN Reason: Shortness Of Breath Or Wheezing Last Admin: 05/21/25 20:28 Dose: 2 puff Aripiprazole (Aripiprazole 2 Mg Tablet) 2 mg PO DAILY ESTHER Last Admin: 05/24/25 07:47 Dose: 2 mg Atorvastatin Calcium (Atorvastatin Calcium 80 Mg Tablet) 80 mg PO BEDTIME ESTHER On Hold: 05/22/25 11:24 Last Admin: 05/21/25 20:04 Dose: 80 mg Benzonatate (Benzonatate 100 Mg Capsule) 200 mg PO TID PRN PRN Reason: Cough Last Admin: 05/21/25 20:04 Dose: 200 mg Calcium Carbonate (Calcium Carbonate 750 Mg Tab.Chew) 750 mg PO Q4H PRN PRN Reason: Heartburn Carvedilol (Carvedilol 12.5 Mg Tablet) 12.5 mg PO BID [facility]; Protocol Last Admin: 05/24/25 07:46 Dose: 12.5 mg Dextrose (Dextrose 50 % 25 Gm/50 Ml Syringe) 25 gm IVPUSH Q15M PRN; Protocol PRN Reason: per Hypoglycemia Standing Ord. Docusate Sodium (Docusate Sodium 100 Mg Capsule) 100 mg PO BID [facility] Last Admin: 05/24/25 07:46 Dose: 100 mg Enoxaparin Sodium (Enoxaparin Sodium 40 Mg/0.4 Ml Syringe) 40 mg SUBCUT Q24H [facility] Last Admin: 05/23/25 19:35 Dose: 40 mg Gabapentin (Gabapentin 100 Mg Capsule) 100 mg PO TID [facility] Last Admin: 05/24/25 07:47 Dose: 100 mg Glucose (Glucose Gel 15 Gm Gel..Gram.) 15 gm PO Q15M PRN; Protocol PRN Reason: per Hypoglycemia Standing Ord. Guaifenesin (Guaifenesin 200 Mg/10 Ml 10 Ml Liquid) 10 ml PO Q6H PRN PRN Reason: Cough Last Admin: 05/23/25 20:16 Dose: 10 ml Piperacillin Sod/Tazobactam (Sod 4.5 gm/ Sodium Chloride) 100 mls @ 200 mls/hr IV Q8H [facility] Last Infusion: 05/24/25 04:13 Dose: Infused Daptomycin 650 mg/ Sodium (Chloride) 63 mls @ 99.736 mls/hr IV Q24H [facility] Last Infusion: 05/23/25 15:36 Dose: Infused Insulin Glargine (Insulin Glargine,Hum.Rec.Anlog 100 Unit/Ml 10 Ml Vial) 20 unit SUBCUT DAILY [facility] Last Admin: 05/24/25 07:46 Dose: 20 unit Insulin Human Lispro (Insulin Lispro 100 Unit/Ml 3 Ml Vial) 0 unit SUBCUT QIDACHS [facility]; Protocol Last Admin: 05/24/25 07:45 Dose: 2 unit Levothyroxine Sodium (Levothyroxine Sodium 50 Mcg Tablet) 50 mcg PO DAILY@599 [facility] Last Admin: 05/24/25 05:30 Dose: 50 mcg Magnesium Hydroxide (Milk Of Magnesia 30 Ml Oral.Susp) 30 ml PO DAILY PRN PRN Reason: Constipation Melatonin (Melatonin 3 Mg Tablet) 6 mg PO BEDTIME PRN PRN Reason: Insomnia Last Admin: 05/20/25 20:06 Dose: 6 mg Non-Formulary Medication (Dulaglutide [Trulicity]) 1.5 mg SUBCUT [facility] Omeprazole (Omeprazole 20 Mg Capsule.Dr) 20 mg PO DAILY@629 [facility] Last Admin: 05/24/25 05:29 Dose: 20 mg Ondansetron HCl (Ondansetron Hcl 4 Mg/2 Ml Vial) 4 mg IVPUSH Q8H PRN PRN Reason: Nausea and Vomiting Senna (Sennosides 8.6 Mg Tablet) 17.2 mg PO BEDTIME PRN PRN Reason: Constipation Sodium Chloride (0.9 % Sodium Chloride Flush 3 Ml Syringe) [facility] Admin: 05/24/25 07:49 Dose: 3 ml Tamsulosin HCl (Tamsulosin Hcl 0.4 Mg Capsule) 0.4 mg PO DAILY [facility] Last Admin: 05/24/25 07:46 Dose: 0.4 mg Torsemide (Torsemide 20 Mg Tablet) 40 mg PO BID [facility]; Protocol Last Admin: 05/24/25 07:46 Dose: 40 mg Zolpidem Tartrate (Zolpidem Tartrate 5 Mg Tablet) 5 mg PO BEDTIME PRN PRN Reason: Insomnia Last Admin: 05/23/25 22:40 Dose: 5 mg Home Medications ?Medication ?Instructions ?Recorded ?Confirmed ?Last Taken ?Type carvedilol 12.5 mg tablet 12.5 mg PO BID 03/29/25 05/19/25 05/19/25 History insulin degludec 100 unit/mL (3 32 unit subcut DAILY 03/29/25 05/19/25 Unknown History mL) subcutaneous pen (Tresiba FlexTouch U-100 insulin) levothyroxine 50 mcg capsule 50 mcg PO DAILY@0603/29/25 05/19/25 05/19/25 History pantoprazole 40 mg tablet,delayed 40 mg PO DAILY@0630 03/29/25 05/19/25 05/19/25 History release sacubitril 97 mg-valsartan 103 mg 1 tab PO BID 03/29/25 05/20/25 Unknown History tablet (Entresto) tamsulosin 0.4 mg capsule 0.4 mg PO DAILY 03/29/25 05/19/25 05/19/25 History torsemide 20 mg tablet 40 mg PO BID 03/29/25 05/20/25 Unknown History dulaglutide 1.5 mg/0.5 mL 1.5 mg subcut TU 05/19/25 05/20/25 05/04/25 History subcutaneous pen injector (Trulicity) insulin lispro 100 unit/mL See Protocol subcut TIDAC 05/19/25 05/19/25 Unknown History subcutaneous pen (Humalog KwikPen (U-100) Insulin) albuterol sulfate 90 mcg/actuation 2 puff inhalation Q4H PRN 05/20/25 05/20/25 Unknown History aerosol inhaler Shortness Of Breath Or Wheezing aripiprazole 2 mg tablet 2 mg PO DAILY 05/20/25 05/20/25 Unknown History atorvastatin 80 mg tablet 80 mg PO BEDTIME 05/20/25 05/20/25 Unknown History gabapentin 100 mg capsule 100 mg PO TID 05/20/25 05/20/25 Unknown History Physical Exam Vital Signs: Last Vital Signs Temp 98.3 F 05/24/25 07:19 Pulse 84 05/24/25 07:19 Resp 16 05/24/25 07:19 BP 133/75 05/24/25 07:19 Pulse Ox 97 05/24/25 07:19 O2 Del Method Room Air 05/24/25 07:19 BMI result Body Mass Index 34.7 Const General: awake and Physically active; No alert Resp Effort & Inspection: normal respiratory effort and able to speak in complete sentences Auscultation: clear to auscultation bilaterally Cardio Rate: regular rate Rhythm: regular rhythm Heart sounds: S1 normal heart sound present and S2 normal heart sound present GI Palpation (GI): Soft to palpation and nontender Skin Rashes: rash noted Extrem General: No edema Results Lab Results 05/20/25 05:29 05/24/25 08:47 Lab results: Chemistry 0705/22/25 05/24/25 06:05 06:49 08:47 Sodium 138 138 137 Potassium 4.0 4.3 4.1 Carbon Dioxide 26 27 26 BUN 19 H 20 H 26 H Creatinine 1.46 H 1.82 H 1.98 H Calcium 8.3 L 8.9 D 8.9 Assessment and Plan (1) Acute kidney injury superimposed on CKD: Status: Acute (2) Cellulitis of left leg: Status: Acute Plan VINCENT on CKD may be from reduced renal perfusion from hypovolemia- per bedside US IVC collapsed. recommend holding torsemide for now. Will re-assess tomorrow, if still remains dry will consider fluids. will check UA and urine eosinophils Patient is ok for PICC line insertion for long-term antibiotics. Recommend daily renal function and electrolyte studies recommend daily weights, I&O monitoring Avoid nephrotoxins continue supportive care Discussed with Dr Jaeger. Procedures Date of Service Date of Service: 05/24/25
[2025-05-24 12:18] LABS: Appearance Urine Clear; Glucose Urine UA Negative (Negative); PH 6.0 (5.0-9.0); Specific Gravity - Urine 1.010 (1.005-1.025)
[2025-05-24 13:25] LABS: EOS Counted 0 CELLS; WBC, Counted 100 CELLS
[2025-05-24 13:26] LABS: EOS QC POS YES; EOS Stain Quality OK YES
--- NOTE | 2025-05-24 14:30 | MHC.CM.PN ---
EMR REVIEWED AND PER MD ROUNDS, PT WILL NEED LT ABT RX, PICC PLACEMENT AND EVAL BY ID. [facility] IN AND SPOKE WITH TO PROVIDE TEACHING MATERIALS. HABILITATION SPECIALIST AT BEDSIDE TO ASSIST. REFERRAL SENT TO [facility] (PT'S FIRST CHOICE). CM WILL CONTINUE TO FOLLOW
--- NOTE | 2025-05-24 15:15 | P.PNIM_ITS ---
Subjective Subjective Date of Service: 05/24/25 Interval History: foot infection Review of Systems seems improving denies new c/o Review of Systems: Yes all other systems are reviewed and are negative Physical Exam 2 Exam: Exam: Appearance: Alert.? Oriented X3.? cvs: rrr, [id number] . res: clear to auscultation ,no rhonchii or wheezing abd: no rebound or guarding ,nt, bs present. ext pulses present , no cyanosis ,left lower ext /toe ulcer area -seems similar h&p pic. neuro: axo3 , nonfocal. Vital Signs: Vital Signs: Last Vital Signs Temp 98.3 F 05/24/25 07:19 Pulse 84 05/24/25 07:19 Resp 16 05/24/25 07:19 BP 133/75 05/24/25 07:19 Pulse Ox 97 05/24/25 07:19 O2 Del Method Room Air 05/24/25 07:19 BMI result Body Mass Index 34.7 Objective Data Active Medications Acetaminophen (Acetaminophen 325 Mg Tablet) 650 mg PO Q6H PRN PRN Reason: Pain, Mild 1-3,fever,headache Last Admin: 05/23/25 05:44 Dose: 650 mg Documented By: PEGGY Comments: per pt request for headache Albuterol Sulfate (Albuterol Sulfate 90 Mcg 8 Gm Inhaler) 2 puff INHALE Q4H PRN PRN Reason: Shortness Of Breath Or Wheezing Last Admin: 05/21/25 20:28 Dose: 2 puff Documented By: DAVID Aripiprazole (Aripiprazole 2 Mg Tablet) 2 mg PO DAILY [facility] Last Admin: 05/24/25 07:47 Dose: 2 mg Documented By: MARY Atorvastatin Calcium (Atorvastatin Calcium 80 Mg Tablet) 80 mg PO BEDTIME ESTHER On Hold: 05/22/25 11:24 Last Admin: 05/21/25 20:04 Dose: 80 mg Documented By: SARITA Benzonatate (Benzonatate 100 Mg Capsule) 200 mg PO TID PRN PRN Reason: Cough Last Admin: 05/21/25 20:04 Dose: 200 mg Documented By: SARITA Calcium Carbonate (Calcium Carbonate 750 Mg Tab.Chew) 750 mg PO Q4H PRN PRN Reason: Heartburn Carvedilol (Carvedilol 12.5 Mg Tablet) 12.5 mg PO BID [facility]; Protocol Last Admin: 05/24/25 07:46 Dose: 12.5 mg Documented By: MARY Dextrose (Dextrose 50 % 25 Gm/50 Ml Syringe) 25 gm IVPUSH Q15M PRN; Protocol PRN Reason: per Hypoglycemia Standing Ord. Docusate Sodium (Docusate Sodium 100 Mg Capsule) 100 mg PO BID [facility] Last Admin: 05/24/25 07:46 Dose: 100 mg Documented By: MARY Enoxaparin Sodium (Enoxaparin Sodium 40 Mg/0.4 Ml Syringe) 40 mg SUBCUT Q24H [facility] Last Admin: 05/23/25 19:35 Dose: 40 mg Documented By: NED Gabapentin (Gabapentin 100 Mg Capsule) 100 mg PO TID [facility] Last Admin: 05/24/25 07:47 Dose: 100 mg Documented By: MARY Glucose (Glucose Gel 15 Gm Gel..Gram.) 15 gm PO Q15M PRN; Protocol PRN Reason: per Hypoglycemia Standing Ord. Guaifenesin (Guaifenesin 200 Mg/10 Ml 10 Ml Liquid) 10 ml PO Q6H PRN PRN Reason: Cough Last Admin: 05/23/25 20:16 Dose: 10 ml Documented By: NED Daptomycin 650 mg/ Sodium (Chloride) 63 mls @ 99.736 mls/hr IV Q24H [facility] Last Infusion: 05/24/25 13:30 Dose: Infused Documented By: MARY Insulin Glargine (Insulin Glargine,Hum.Rec.Anlog 100 Unit/Ml 10 Ml Vial) 20 unit SUBCUT DAILY [facility] Last Admin: 05/24/25 07:46 Dose: 20 unit Documented By: MARY Insulin Human Lispro (Insulin Lispro 100 Unit/Ml 3 Ml Vial) 0 unit SUBCUT QIDACHS [facility]; Protocol Last Admin: 05/24/25 11:43 Dose: 4 unit Documented By: MARY Levothyroxine Sodium (Levothyroxine Sodium 50 Mcg Tablet) 50 mcg PO DAILY@0600 [facility] Last Admin: 05/24/25 05:30 Dose: 50 mcg Documented By: NED Magnesium Hydroxide (Milk Of Magnesia 30 Ml Oral.Susp) 30 ml PO DAILY PRN PRN Reason: Constipation Melatonin (Melatonin 3 Mg Tablet) 6 mg PO BEDTIME PRN PRN Reason: Insomnia Last Admin: 05/20/25 20:06 Dose: 6 mg Documented By: IAN Non-Formulary Medication (Dulaglutide [Trulicity]) 1.5 mg SUBCUT [facility] [place] Omeprazole (Omeprazole 20 Mg Capsule.) 20 mg PO DAILY@0630 [facility] Last Admin: 05/24/25 05:29 Dose: 20 mg Documented By: NED Ondansetron HCl (Ondansetron Hcl 4 Mg/2 Ml Vial) 4 mg IVPUSH Q8H PRN PRN Reason: Nausea and Vomiting Senna (Sennosides 8.6 Mg Tablet) 17.2 mg PO BEDTIME PRN PRN Reason: Constipation Sodium Chloride (0.9 % Sodium Chloride Flush 3 Ml Syringe) 3 ml IVFLUSH QSHIFT [facility] Last Admin: 05/24/25 07:49 Dose: 3 ml Documented By: MARY Tamsulosin HCl (Tamsulosin Hcl 0.4 Mg Capsule) 0.4 mg PO DAILY [facility] Last Admin: 05/24/25 07:46 Dose: 0.4 mg Documented By: MARY Torsemide (Torsemide 20 Mg Tablet) 40 mg PO BID [facility]; Protocol Last Admin: 05/24/25 07:46 Dose: 40 mg Documented By: MARY Zolpidem Tartrate (Zolpidem Tartrate 5 Mg Tablet) 5 mg PO BEDTIME PRN PRN Reason: Insomnia Last Admin: 05/23/25 22:40 Dose: 5 mg Documented By: NED Labs 05/20/25 05:29 05/24/25 08:47 Labs: Laboratory Results - last 24 hr 05/23/25 05/23/25 05/24/25 15:59 19:54 07:08 Hold Purple Top Anion Gap Estim Creat Clear Calc Estimated GFR POC Glucose 147 H 170 H 192 H Random Glucose Calcium Urine Color Urine Appearance Urine pH Ur Specific [place] Urine Protein Urine Glucose (UA) Urine Ketones Urine Blood Urine Nitrite Ur Leukocyte Esterase Urine RBC Urine WBC Ur Squamous Epith Cells Urine Bacteria Hyaline Casts Urine Eosinophils % 05/24/25 05/24/25 05/24/25 08:28 08:47 11:31 Hold Purple Top SEE NOTE Anion Gap 15 Estim Creat Clear Calc 46.1 Estimated GFR 34 POC Glucose 219 H Random Glucose 244 H Calcium 8.9 Urine Color Urine Appearance Urine pH Ur Specific [place] Urine Protein Urine Glucose (UA) Urine Ketones Urine Blood Urine Nitrite Ur Leukocyte Esterase Urine RBC Urine WBC Ur Squamous Epith Cells Urine Bacteria Hyaline Casts Urine Eosinophils % 05/24/25 12:02 Hold Purple Top Anion Gap Estim Creat Clear Calc Estimated GFR POC Glucose Random Glucose Calcium Urine Color Yellow Urine Appearance Clear Urine pH 6.0 Ur Specific [place] 1.010 Urine Protein Negative Urine Glucose (UA) Negative Urine Ketones Negative Urine Blood Negative Urine Nitrite Negative Ur Leukocyte Esterase Negative Urine RBC 0-2 Urine WBC 0-5 Ur Squamous Epith Cells 0-2 Urine Bacteria None Seen Hyaline Casts 0-2 Urine Eosinophils % 0.0 Assessment and Plan (1) Acute leg pain: Status: Acute (2) Skin ulcer of left great toe: Status: Acute Plan 65-year-old English-speaking male with pertinent history of congestive heart failure with reduced ejection fraction, insulin-dependent type 2 diabetes mellitus, CAD status post stents, 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 Left lower extremity cellulitis with infected great toe ulcer: No sepsis. Venous duplex negative. X-ray :lucency surrounding the 1st tarsometatarsal joint arthrodesis screw, possibly indicating infection or loosening continue broad-spectrum IV antibiotics due to extensive infection. Insulin-dependent type 2 diabetes mellitus with hyperglycemia: Initiating Accu- Cheks with sliding scale insulin. Reduced home basal insulin once med rec is complete Congestive heart failure with reduced ejection fraction: No decompensation during admission. Continue coreg. hold Entresto, diuretics-creatinine slightly up. vincent on CKD stage 3: Creatinine is near baseline. cr is 1.5-1.6 range,slightly 1.9. Continue to monitor. nephrology eval- VINCENT on CKD may be from reduced renal perfusion from hypovolemia hold Entresto, diuretics-creatinine slightly up. Patient is ok for PICC line insertion for long-term antibiotics. Recommend daily renal function and electrolyte studies recommend daily weights, I&O monitoring Avoid nephrotoxins COPD/asthma overlap syndrome: No exacerbation during admission. Obesity class 2: Weight loss encouraged BPH: On Flomax Gastroesophageal reflux disease: On PPI. Hypothyroidism: On Synthroid ongoing need for stay:Left lower extremity cellulitis with infected great toe ulcer: broad-spectrum IV antibiotics , moniter renal function electrolytes . Quality Stroke Does the patient have a stroke diagnosis?: No VTE Prior VTE?: No VTE Risk Level:: Medical - moderate - high VTE Device Contraindication: Treatment Not Indicated VTE Drug Contraindication: N/A - Med Ordered
[2025-05-24 15:56] VITALS: BP 137/62; PULSE 74; RESP 16; TEMP 36.3; O2SAT 95
--- NOTE | 2025-05-24 16:29 | W.PM.IDCN ---
History of Present Illness Data of Consult Service Date: 05/24/25 Requesting physician: Artemio James Primary Care Provider: Unknown Physician HPI Reason for consult: left great toe OM He presents with left leg swelling starting from left great toe. He has no fever or chills. He has left great toe OM. There are no positive cultures. Review of Systems Review of Systems: Yes all other systems are reviewed and are negative [facility] Past Medical History Medical History (Updated 05/24/25 @ 16:32 by Elayne Mosley MD) Osteomyelitis CKD (chronic kidney disease) stage 3, GFR 30-59 ml/min Class 1 obesity Family History Family history: reviewed and not pertinent Social History Social History Household Members: Spouse Housing: Apartment Do you presently have visiting nurse or other home services: Yes ([employer]) Patient Tobacco Use Status: Never used Tobacco e-Cigarette/Vaping Use: Never Used service: No Meds Allergies Allergy/AdvReac Type Severity Reaction Status Date / Time No Known Drug Allergies Allergy Unknown Verified 05/19/25 16:16 Active Medications: Current Medications Acetaminophen (Acetaminophen 325 Mg Tablet) 650 mg PO Q6H PRN PRN Reason: Pain, Mild 1-3,fever,headache Last Admin: 05/23/25 05:44 Dose: 650 mg Albuterol Sulfate (Albuterol Sulfate 90 Mcg 8 Gm Inhaler) 2 puff INHALE Q4H PRN PRN Reason: Shortness Of Breath Or Wheezing Last Admin: 05/21/25 20:28 Dose: 2 puff Aripiprazole (Aripiprazole 2 Mg Tablet) 2 mg PO DAILY ESTHER Last Admin: 05/24/25 07:47 Dose: 2 mg Atorvastatin Calcium (Atorvastatin Calcium 80 Mg Tablet) 80 mg PO BEDTIME ESTHER On Hold: 05/22/25 11:24 Last Admin: 05/21/25 20:04 Dose: 80 mg Benzonatate (Benzonatate 100 Mg Capsule) 200 mg PO TID PRN PRN Reason: Cough Last Admin: 05/21/25 20:04 Dose: 200 mg Calcium Carbonate (Calcium Carbonate 750 Mg Tab.Chew) 750 mg PO Q4H PRN PRN Reason: Heartburn Carvedilol (Carvedilol 12.5 Mg Tablet) 12.5 mg PO BID ESTHER; Protocol Last Admin: 05/24/25 07:46 Dose: 12.5 mg Dextrose (Dextrose 50 % 25 Gm/50 Ml Syringe) 25 gm IVPUSH Q15M PRN; Protocol PRN Reason: per Hypoglycemia Standing Ord. Docusate Sodium (Docusate Sodium 100 Mg Capsule) 100 mg PO BID [facility] Last Admin: 05/24/25 07:46 Dose: 100 mg Enoxaparin Sodium (Enoxaparin Sodium 40 Mg/0.4 Ml Syringe) 40 mg SUBCUT Q24H [facility] Last Admin: 05/23/25 19:35 Dose: 40 mg Gabapentin (Gabapentin 100 Mg Capsule) 100 mg PO TID [facility] Last Admin: 05/24/25 15:33 Dose: 100 mg Glucose (Glucose Gel 15 Gm Gel..Gram.) 15 gm PO Q15M PRN; Protocol PRN Reason: per Hypoglycemia Standing Ord. Guaifenesin (Guaifenesin 200 Mg/10 Ml 10 Ml Liquid) 10 ml PO Q6H PRN PRN Reason: Cough Last Admin: 05/23/25 20:16 Dose: 10 ml Daptomycin 650 mg/ Sodium (Chloride) 63 mls @ 99.736 mls/hr IV Q24H [facility] Last Infusion: 05/24/25 13:30 Dose: Infused Insulin Glargine (Insulin Glargine,Hum.Rec.Anlog 100 Unit/Ml 10 Ml Vial) 20 unit SUBCUT DAILY [facility] Last Admin: 05/24/25 07:46 Dose: 20 unit Insulin Human Lispro (Insulin Lispro 100 Unit/Ml 3 Ml Vial) 0 unit SUBCUT QIDACHS [facility]; Protocol Last Admin: 05/24/25 11:43 Dose: 4 unit Levothyroxine Sodium (Levothyroxine Sodium 50 Mcg Tablet) 50 mcg PO DAILY@0600 [facility] Last Admin: 05/24/25 05:30 Dose: 50 mcg Magnesium Hydroxide (Milk Of Magnesia 30 Ml Oral.Susp) 30 ml PO DAILY PRN PRN Reason: Constipation Melatonin (Melatonin 3 Mg Tablet) 6 mg PO BEDTIME PRN PRN Reason: Insomnia Last Admin: 05/20/25 20:06 Dose: 6 mg Non-Formulary Medication (Dulaglutide [Trulicity]) 1.5 mg SUBCUT TU [facility] Omeprazole (Omeprazole 20 Mg Capsule.Dr) 20 mg PO DAILY@0630 [facility] Last Admin: 05/24/25 05:29 Dose: 20 mg Ondansetron HCl (Ondansetron Hcl 4 Mg/2 Ml Vial) 4 mg IVPUSH Q8H PRN PRN Reason: Nausea and Vomiting Senna (Sennosides 8.6 Mg Tablet) 17.2 mg PO BEDTIME PRN PRN Reason: Constipation Sodium Chloride (0.9 % Sodium Chloride Flush 3 Ml Syringe) 3 ml IVFLUSH QSHIFT [facility] Last Admin: 05/24/25 15:34 Dose: 3 ml Tamsulosin HCl (Tamsulosin Hcl 0.4 Mg Capsule) 0.4 mg PO DAILY [facility] Last Admin: 05/24/25 07:46 Dose: 0.4 mg Torsemide (Torsemide 20 Mg Tablet) 40 mg PO BID [facility]; Protocol Last Admin: 05/24/25 07:46 Dose: 40 mg Zolpidem Tartrate (Zolpidem Tartrate 5 Mg Tablet) 5 mg PO BEDTIME PRN PRN Reason: Insomnia Last Admin: 05/23/25 22:40 Dose: 5 mg Home Medications ?Medication ?Instructions ?Recorded ?Confirmed ?Last Taken ?Type carvedilol 12.5 mg tablet 12.5 mg PO BID 03/29/25 05/19/25 05/19/25 History insulin degludec 100 unit/mL (3 32 unit subcut DAILY 03/29/25 05/19/25 Unknown History mL) subcutaneous pen (Tresiba FlexTouch U-100 insulin) levothyroxine 50 mcg capsule 50 mcg PO DAILY@0603/29/25 05/19/25 05/19/25 History pantoprazole 40 mg tablet,delayed 40 mg PO DAILY@0603/29/25 05/19/25 05/19/25 History release sacubitril 97 mg-valsartan 103 mg 1 tab PO BID 03/29/25 05/20/25 Unknown History tablet (Entresto) tamsulosin 0.4 mg capsule 0.4 mg PO DAILY 03/29/25 05/19/25 05/19/25 History torsemide 20 mg tablet 40 mg PO BID 03/29/25 05/20/25 Unknown History dulaglutide 1.5 mg/0.5 mL 1.5 mg subcut TU 05/19/25 05/20/25 05/04/25 History subcutaneous pen injector (Trulicity) insulin lispro 100 unit/mL See Protocol subcut TIDAC 05/19/25 05/19/25 Unknown History subcutaneous pen (Humalog KwikPen (U-100) Insulin) albuterol sulfate 90 mcg/actuation 2 puff inhalation Q4H PRN 05/20/25 05/20/25 Unknown History aerosol inhaler Shortness Of Breath Or Wheezing aripiprazole 2 mg tablet 2 mg PO DAILY 05/20/25 05/20/25 Unknown History atorvastatin 80 mg tablet 80 mg PO BEDTIME 05/20/25 05/20/25 Unknown History gabapentin 100 mg capsule 100 mg PO TID 05/20/25 05/20/25 Unknown History Physical Exam Vital Signs: Vital Signs: Last Vital Signs Temp 97.3 F 05/24/25 15:56 Pulse 74 05/24/25 15:56 Resp 16 05/24/25 15:56 BP 137/62 05/24/25 15:56 Pulse Ox 95 05/24/25 15:56 O2 Del Method Room Air 05/24/25 15:56 BMI result Body Mass Index 34.7 Const: General: cooperative HEENT: Head: Yes normal to inspection Face and sinus: Yes normal facial exam Mouth: Normal oral and palatal mucosa present Teeth and gingiva: dentition normal Eyes: General: appearance normal, both eyes and all related structures Pupils: Equal, round and reactive pupils present Resp: Effort & Inspection: normal respiratory effort Cardio: Rate: regular rate Rhythm: regular rhythm GI: Palpation (GI): Soft to palpation and nontender : General: Yes no CVA tenderness Back/Spine/Pelvis: Back: no CVA tenderness Skin: General skin exam: no rashes or lesions noted Neuro: General: moves all extremities Cranial nerves: Yes Equal, round and reactive pupils present Extrem: Other: left great toe swelling,small .5 cm ulcer bottom,neuropathy.pulses plus two Psych: Appearance: grossly normal Results Labs 05/20/25 05:29 05/24/25 08:47 Labs: BMP 05/24/25 08:47 Sodium 137 Potassium 4.1 Chloride 100 Carbon Dioxide 26 BUN 26 H Creatinine 1.98 H Calcium 8.9 Urine 05/24/25 Range/Units 12:02 Urine Color Yellow Urine Appearance Clear Urine pH 6.0 (5.0-9.0) Ur Specific [place] 1.010 (1.005-1.025) Urine Protein Negative (Neg-Trace) mg/dL Urine Glucose (UA) Negative (Negative) mg/dL Microbiology Microbiology Results: Microbiology 05/19/25 18:56 Blood - Venous Blood Culture - Preliminary No growth after 48 hours. 05/19/25 19:11 Blood - Venous Blood Culture - Preliminary No growth after 48 hours. Assessment and Plan (1) Osteomyelitis: Status: Acute Plan Left great toe OM. Would give six weeks Daptomycin with weekly CK and CBC. Would hold statin.
--- NOTE | 2025-05-24 17:20 | HO.PICC ---
PICC Line Insertion NPICC Diagnosis: osteomyelitis Indication: correction ABT Pertinent Labs: Reviewed Technique: Following informed consent including risks, benefits and alternatives and using sterile technique including cap and mask, sterile gown, glove and drape, the left arm was prepped and draped in the usual sterile fashion of full barrier technique with CHG. Following completion of [place] Protocol the skin and soft tissues were anesthetized with 1% Lidocaine plain. Using ultrasound guidance, left brachial vein access was obtained. Over an 0.018 wire through peel-away sheath, a 4FR single lumen PASV PICC line was positioned. Catheter length is 48cm internal length, 0cm external length, for a total trimmed length of 48cm. The procedure was performed in room 272. Tip verification was performed by Laura Lynne with Sherlock 3CG. Tip located in SVC. Ultrasound was used to document vein patency and for needle entry. A formal ultrasound picture and cardiac rhythm strip was recorded. Vascular [employer] Hvac Technician has released the line for use and it is currently dressed with a StatLock, Tegaderm, and CHG disc. Verification has been performed for blood return and line patency. Arm Circumference: 36cm Equipment: Chujian PowerPICC Solo catheter with sherlock 3CG Catheter Type: 4fr single lumen PASV Lot #: [id number]
[2025-05-24 17:52] LABS: Glucose, Whole Blood 136 mg/dL (60-115)
[2025-05-24 19:42] VITALS: BP 136/62; PULSE 75; RESP 18; TEMP 36.4; O2SAT 96
[2025-05-24 19:59] LABS: Glucose, Whole Blood 217 mg/dL (60-115)
[2025-05-25 03:37] VITALS: BP 129/73; PULSE 85; RESP 18; TEMP 36.6; O2SAT 94
[2025-05-25 07:19] VITALS: BP 140/72; PULSE 79; RESP 16; TEMP 36.3; O2SAT 96
[2025-05-25 07:21] LABS: Glucose, Whole Blood 127 mg/dL (60-115)
[2025-05-25 08:34] LABS: Anion Gap 15 (12-20); Blood Urea Nitrogen 31 mg/dL (9-16); Calcium 9.3 mg/dL (8.4-10.2); Carbon Dioxide 31 mmol/L (22-29); Chloride 97 mmol/L (96-108); Creatinine Clr Calc Pharmacy 46.6; Estimated Glomerular Filt Rate 34; Potassium 3.9 mmol/L (3.3-5.1); Sodium 139 mmol/L (135-145)
[2025-05-25 08:38] VITALS: BP 140/72
[2025-05-25] MEDS: Insulin Glargine,Hum.rec.anlog 100 UNIT/ML 10 ML VIAL 20 UNIT SUBCUT (08:38)
[2025-05-25] MEDS: 0.9 % Sodium Chloride Flush 10 ML SYRINGE 5 ML IVFLUSH ×2 (08:39→16:32)
[2025-05-25 11:29] LABS: Glucose, Whole Blood 274 mg/dL (60-115)
--- NOTE | 2025-05-25 11:30 | PM.PNNEP ---
Subjective Subjective Date of Service: 05/25/25 Interval history: Pt is a 65 y/o male with a medical history of CKD3, HFrEF, DMII, CAD s/p stenting, COPD, cardiomyopathy, BPH, hypothyroidism. Presented 05/19 with LLE cellulitis, blood cultures negative. Nephrology consulted for PICC line clearance in setting of CKD- he will need long-term IV antibiotics for cellulitis with infected great toe. Following for VINCENT. creatinine has increased to 1.98, was 1.82 on 05/22, 1.46 on 05/21. patient does not have soil specialist he is currently taking torsemide 40mg PO BID. Bedside US per Dr Jaeger shows collapsed IVC. entresto also currently on hold. Patient states he has some mild abdominal pain at bedside, otherwise no complaints. Physical Exam Vital Signs: Vital Signs: Last Vital Signs Temp 97.3 F 05/25/25 07:19 Pulse 79 05/25/25 07:19 Resp 16 05/25/25 07:19 BP 140/72 H 05/25/25 08:38 Pulse Ox 96 05/25/25 07:19 O2 Del Method Room Air 05/25/25 07:19 BMI result Body Mass Index 34.7 Const: General: awake and Physically active; No alert Resp: Effort & Inspection: normal respiratory effort and able to speak in complete sentences Auscultation: clear to auscultation bilaterally Cardio: Rate: regular rate Rhythm: regular rhythm Heart sounds: S1 normal heart sound present and S2 normal heart sound present GI: Palpation (GI): Soft to palpation and nontender Skin: Rashes: rash noted Extrem: General: No edema Objective Data Labs 05/20/25 05:29 05/25/25 08:06 Labs: Laboratory Results - last 24 hr 05/24/25 05/24/25 05/24/25 11:31 12:02 17:49 Hold Purple Top Sodium Potassium Chloride Carbon Dioxide Anion Gap BUN Creatinine Estim Creat Clear Calc Estimated GFR POC Glucose 219 H 136 H Random Glucose Calcium Urine Color Yellow Urine Appearance Clear Urine pH 6.0 Ur Specific [place] 1.010 Urine Protein Negative Urine Glucose (UA) Negative Urine Ketones Negative Urine Blood Negative Urine Nitrite Negative Ur Leukocyte Esterase Negative Urine RBC 0-2 Urine WBC 0-5 Ur Squamous Epith Cells 0-2 Urine Bacteria None Seen Hyaline Casts 0-2 Urine Eosinophils % 0.0 05/24/25 05/25/25 05/25/25 19:50 07:07 08:06 Hold Purple Top Sodium 139 Potassium 3.9 Chloride 97 Carbon Dioxide 31 H Anion Gap 15 BUN 31 H Creatinine 1.96 H Estim Creat Clear Calc 46.6 Estimated GFR 34 POC Glucose 217 H 127 H Random Glucose 134 H Calcium 9.3 Urine Color Urine Appearance Urine pH Ur Specific [place] Urine Protein Urine Glucose (UA) Urine Ketones Urine Blood Urine Nitrite Ur Leukocyte Esterase Urine RBC Urine WBC Ur Squamous Epith Cells Urine Bacteria Hyaline Casts Urine Eosinophils % 05/25/25 05/25/25 08:10 11:21 Hold Purple Top SEE NOTE Sodium Potassium Chloride Carbon Dioxide Anion Gap BUN Creatinine Estim Creat Clear Calc Estimated GFR POC Glucose 274 H Random Glucose Calcium Urine Color Urine Appearance Urine pH Ur Specific [place] Urine Protein Urine Glucose (UA) Urine Ketones Urine Blood Urine Nitrite Ur Leukocyte Esterase Urine RBC Urine WBC Ur Squamous Epith Cells Urine Bacteria Hyaline Casts Urine Eosinophils % Microbiology Microbiology Results: Microbiology 05/19/25 18:56 Blood - Venous Blood Culture - Final No growth after 5 days. 05/19/25 19:11 Blood - Venous Blood Culture - Final No growth after 5 days. Procedures Date of Service Date of Service: 05/25/25 Assessment & Plan Assessment and plan (1) Acute kidney injury superimposed on CKD: Status: Acute (2) Cellulitis of left leg: Status: Acute Plan VINCENT on CKD may be from reduced renal perfusion from hypovolemia- per bedside US yesterday IVC collapsed. recommend holding torsemide (not held yesterday), pt still seems dry UA bland, and no urine eosinophils Recommend daily renal function and electrolyte studies recommend daily weights, I&O monitoring Avoid nephrotoxins continue supportive care Discussed with Dr Jaeger. Time Spent With Patient Time: Total time managing care of this patient today ____ minutes. Progress Note: Quality Stroke Does the patient have a stroke diagnosis?: No
--- NOTE | 2025-05-25 14:03 | HO.PM.IMPN ---
Subjective Subjective Date of Service: 05/25/25 Interval History: foot infection Review of Systems vincent on ckd no new c/o. Review of Systems: Yes all other systems are reviewed and are negative Physical Exam Exam: Exam: Appearance: Alert.? Oriented X3.? cvs: [id number], [id number] . res: clear to auscultation ,no rhonchii or wheezing abd: no rebound or guarding ,nt, bs present. ext pulses present , no cyanosis ,left lower ext /toe ulcer area -seems similar h&p pic. neuro: axo3 , nonfocal. Vital Signs: Vital Signs: Last Vital Signs Temp 97.3 F 05/25/25 07:19 Pulse 79 05/25/25 07:19 Resp 16 05/25/25 07:19 BP 140/72 H 05/25/25 08:38 Pulse Ox 96 05/25/25 07:19 O2 Del Method Room Air 05/25/25 07:19 BMI result Body Mass Index 34.7 Objective Data Active Medications Acetaminophen (Acetaminophen 325 Mg Tablet) 650 mg PO Q6H PRN PRN Reason: Pain, Mild 1-3,fever,headache Last Admin: 05/23/25 05:44 Dose: 650 mg Documented By: PEGGY Comments: per pt request for headache Albuterol Sulfate (Albuterol Sulfate 90 Mcg 8 Gm Inhaler) 2 puff INHALE Q4H PRN PRN Reason: Shortness Of Breath Or Wheezing Last Admin: 05/21/25 20:28 Dose: 2 puff Documented By: DAVID Aripiprazole (Aripiprazole 2 Mg Tablet) 2 mg PO DAILY ESTHER Last Admin: 05/25/25 08:38 Dose: 2 mg Documented By: MARY Atorvastatin Calcium (Atorvastatin Calcium 80 Mg Tablet) 80 mg PO BEDTIME ESTHER On Hold: 05/22/25 11:24 Last Admin: 05/21/25 20:04 Dose: 80 mg Documented By: SARITA Benzonatate (Benzonatate 100 Mg Capsule) 200 mg PO TID PRN PRN Reason: Cough Last Admin: 05/21/25 20:04 Dose: 200 mg Documented By: SARITA Calcium Carbonate (Calcium Carbonate 750 Mg Tab.Chew) 750 mg PO Q4H PRN PRN Reason: Heartburn Carvedilol (Carvedilol 12.5 Mg Tablet) 12.5 mg PO BID [facility]; Protocol Last Admin: 05/25/25 08:38 Dose: 12.5 mg Documented By: MARY Dextrose (Dextrose 50 % 25 Gm/50 Ml Syringe) 25 gm IVPUSH Q15M PRN; Protocol PRN Reason: per Hypoglycemia Standing Ord. Docusate Sodium (Docusate Sodium 100 Mg Capsule) 100 mg PO BID [facility] Last Admin: 05/25/25 08:38 Dose: 100 mg Documented By: MARY Enoxaparin Sodium (Enoxaparin Sodium 40 Mg/0.4 Ml Syringe) 40 mg SUBCUT Q24H [facility] Last Admin: 05/24/25 20:06 Dose: 40 mg Documented By: NED Gabapentin (Gabapentin 100 Mg Capsule) 100 mg PO TID [facility] Last Admin: 05/25/25 08:38 Dose: 100 mg Documented By: MARY Glucose (Glucose Gel 15 Gm Gel..Gram.) 15 gm PO Q15M PRN; Protocol PRN Reason: per Hypoglycemia Standing Ord. Guaifenesin (Guaifenesin 200 Mg/10 Ml 10 Ml Liquid) 10 ml PO Q6H PRN PRN Reason: Cough Last Admin: 05/23/25 20:16 Dose: 10 ml Documented By: NED Daptomycin 650 mg/ Sodium (Chloride) 63 mls @ 99.736 mls/hr IV Q24H [facility] Last Infusion: 05/25/25 12:32 Dose: Infused Documented By: MARY Insulin Glargine (Insulin Glargine,Hum.Rec.Anlog 100 Unit/Ml 10 Ml Vial) 20 unit SUBCUT DAILY [facility] Last Admin: 05/25/25 08:38 Dose: 20 unit Documented By: MARY Insulin Human Lispro (Insulin Lispro 100 Unit/Ml 3 Ml Vial) 0 unit SUBCUT QIDACHS [facility]; Protocol Last Admin: 05/25/25 11:43 Dose: 6 unit Documented By: MARY Levothyroxine Sodium (Levothyroxine Sodium 50 Mcg Tablet) 50 mcg PO DAILY@0600 [facility] Last Admin: 05/25/25 05:12 Dose: 50 mcg Documented By: NED Magnesium Hydroxide (Milk Of Magnesia 30 Ml Oral.Susp) 30 ml PO DAILY PRN PRN Reason: Constipation Melatonin (Melatonin 3 Mg Tablet) 6 mg PO BEDTIME PRN PRN Reason: Insomnia Last Admin: 05/20/25 20:06 Dose: 6 mg Documented By: IAN Non-Formulary Medication (Dulaglutide [Trulicity]) 1.5 mg SUBCUT [facility] [place]eprazole (Omeprazole 20 Mg Capsule.Dr) 20 mg PO DAILY@0630 [facility] Last Admin: 05/25/25 05:12 Dose: 20 mg Documented By: NED Ondansetron HCl (Ondansetron Hcl 4 Mg/2 Ml Vial) 4 mg IVPUSH Q8H PRN PRN Reason: Nausea and Vomiting Senna (Sennosides 8.6 Mg Tablet) 17.2 mg PO BEDTIME PRN PRN Reason: Constipation Sodium Chloride (0.9 % Sodium Chloride Flush 3 Ml Syringe) 3 ml IVFLUSH [facility] Last Admin: 05/25/25 08:39 Dose: Not Given Documented By: MARY Non-Admin Reason: PICC Sodium Chloride (0.9 % Sodium Chloride Flush 10 Ml Syringe) 5 ml IVFLUSH [facility] Last Admin: 05/25/25 08:39 Dose: 5 ml Documented By: MARY Tamsulosin HCl (Tamsulosin Hcl 0.4 Mg Capsule) 0.4 mg PO DAILY [facility] Last Admin: 05/25/25 08:38 Dose: 0.4 mg Documented By: MARY Torsemide (Torsemide 20 Mg Tablet) 40 mg PO BID [facility]; Protocol On Hold: 05/25/25 09:47 Last Admin: 05/25/25 08:38 Dose: 40 mg Documented By: MARY Zolpidem Tartrate (Zolpidem Tartrate 5 Mg Tablet) 5 mg PO BEDTIME PRN PRN Reason: Insomnia Last Admin: 05/24/25 20:09 Dose: 5 mg Documented By: NED Labs 05/20/25 05:29 05/25/25 08:06 Labs: Laboratory Results - last 24 hr 05/24/25 05/24/25 05/25/25 17:49 19:50 07:07 Hold Purple Top Anion Gap Estim Creat Clear Calc Estimated GFR POC Glucose 136 H 217 H 127 H Random Glucose Calcium 07/29/25 07/29/25 07/29/25 08:06 08:10 11:21 Hold Purple Top SEE NOTE Anion Gap 15 Estim Creat Clear Calc 46.6 Estimated GFR 34 POC Glucose 274 H Random Glucose 134 H Calcium 9.3 Microbiology Microbiology Results: Microbiology 05/19/25 18:56 Blood Culture - Final Blood - Venous No growth after 5 days. 05/19/25 19:11 Blood Culture - Final Blood - Venous No growth after 5 days. Assessment and Plan (1) Acute leg pain: Status: Acute (2) Skin ulcer of left great toe: Status: Acute Plan 65-year-old Lao-speaking male with pertinent history of congestive heart failure with reduced ejection fraction, insulin-dependent type 2 diabetes mellitus, CAD status post stents, 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 Left lower extremity cellulitis with infected great toe ulcer associated with dm: No sepsis. Venous duplex negative. X-ray :lucency surrounding the 1st tarsometatarsal joint arthrodesis screw, possibly indicating infection or loosening seen by ID -rec: 6 week of daptomycin. patient has picc line . Insulin-dependent type 2 diabetes mellitus with hyperglycemia: Initiating Accu-Cheks with sliding scale insulin. Reduced home basal insulin once med rec is complete Congestive heart failure with reduced ejection fraction: No decompensation during admission. Continue coreg. hold Entresto, diuretics-creatinine slightly up. vincent on CKD stage 3: Creatinine is near baseline. cr is 1.5-1.6 range,slightly 1.9. Continue to monitor. nephrology eval- VINCENT on CKD may be from reduced renal perfusion from hypovolemia hold Entresto, diuretics-creatinine slightly up. Patient is ok for PICC line insertion for long-term antibiotics. Recommend daily renal function and electrolyte studies recommend daily weights, I&O monitoring Avoid nephrotoxins COPD/asthma overlap syndrome: No exacerbation during admission. Obesity class 2: Weight loss encouraged BPH: On Flomax Gastroesophageal reflux disease: On PPI. Hypothyroidism: On Synthroid ongoing need for stay:Left lower extremity cellulitis with infected great toe ulcer: broad-spectrum IV antibiotics , moniter renal function electrolytes . Quality Stroke Does the patient have a stroke diagnosis?: No VTE Prior VTE?: No VTE Risk Level:: Medical - moderate - high VTE Device Contraindication: Treatment Not Indicated VTE Drug Contraindication: N/A - Med Ordered
--- NOTE | 2025-05-25 14:08 | P.CDIM_ITS ---
PROVIDER RESPONSE TEXT: To clarify, the appropriate diagnosis supported by the clinical indicators: Cellulitis due to/associated with Diabetes mellitus Type 2: cellulitis associated with dm QUERY TEXT: PHYSICIAN'S DOCUMENTATION REQUEST Date of Query: 05/25/2025 07:51 AM EDT Patient Name: Yanick Arita Admit Date: 05/19/2025 Dear Artemio James MD, A review of the medical record indicates additional documentation may be needed. Please review below and update the documentation accordingly. Clinical Indicators: Progress note 05/24/25 - Left lower extremity cellulitis with infected great toe ulcer. Insulin-dependent type 2 diabetes mellitus with hyperglycemia. Left foot redness, swelling and pain. Broad-spectrum IV antibiotics. Please clarify the following regarding the Complications of Diabetes Mellitus (DM): Cellulitis due to/associated with Diabetes mellitus Type 2 possible, suspected, probable etc. No complications of DM Other (explain) Clinically unable to determine (explain) Thank you, Laura Gerardo, CCS, CDIS Use of terms such as suspected, likely, concern for, or probable (associated with a specific diagnosis that is being evaluated, monitored, or treated as if it exists) are acceptable and can be coded in the inpatient setting, when documented at the time of discharge. Please use your independent medical judgment in providing your response. THIS QUERY IS PART OF THE PERMANENT MEDICAL RECORD
[2025-05-25 15:11] VITALS: BP 130/65; PULSE 76; RESP 18; TEMP 36.9; O2SAT 96
[2025-05-25 16:10] LABS: Glucose, Whole Blood 127 mg/dL (60-115)
[2025-05-25 19:43] LABS: Glucose, Whole Blood 252 mg/dL (60-115)
[2025-05-25 19:53] VITALS: BP 141/79; PULSE 84; RESP 18; TEMP 36.5; O2SAT 97
[2025-05-25 20:10] VITALS: BP 141/79; PULSE 84
[2025-05-25] MEDS: 0.9 % Sodium Chloride Flush 3 ML SYRINGE IVFLUSH (20:10)
[2025-05-26 03:20] VITALS: BP 161/78; PULSE 87; RESP 18; TEMP 36.3; O2SAT 94
[2025-05-26 07:38] LABS: Glucose, Whole Blood 133 mg/dL (60-115)
[2025-05-26 08:00] VITALS: BP 144/73; PULSE 87; RESP 16; TEMP 36.1; O2SAT 97
[2025-05-26] MEDS: 0.9 % Sodium Chloride Flush 10 ML SYRINGE 5 ML IVFLUSH (08:28)
[2025-05-26] MEDS: Insulin Glargine,Hum.rec.anlog 100 UNIT/ML 10 ML VIAL 20 UNIT SUBCUT (08:29)
[2025-05-26 08:50] LABS: Anion Gap 15 (12-20); Blood Urea Nitrogen 38 mg/dL (9-16); Calcium 9.2 mg/dL (8.4-10.2); Carbon Dioxide 30 mmol/L (22-29); Chloride 97 mmol/L (96-108); Creatinine Clr Calc Pharmacy 48.8; Estimated Glomerular Filt Rate 36; Potassium 3.9 mmol/L (3.3-5.1); Sodium 138 mmol/L (135-145)
[2025-05-26 11:30] LABS: Glucose, Whole Blood 305 mg/dL (60-115)
--- NOTE | 2025-05-26 14:05 | P.DS_ITS ---
DS: Providers Provider Date of Service: 05/26/25 Date of admission: 05/19/25 19:06 Date of discharge: 05/26/25 Primary care physician: Cassandra Moses PA-C Consults: 05/19/25 21:05 Consult to Infectious Diseases Routine Consulting Provider: [facility] Reason for consultation: left great toe osteomyelitis Consult to Orthopedics Routine Consulting Provider: [facility] Reason for consultation: 1st tarsometatarsal joint arthrodesis screw, possibly indicating infection Has provider been notified: No 05/19/25 21:28 Consult to Wound Care Routine Reason for consultation: erosion to left great toe 05/20/25 07:42 Consult to Wound Care Routine Reason for consultation: Left Great Toe Wound 05/20/25 07:58 Consult to Vascular Surgery Routine Consulting Provider: [facility] Reason for consultation: foot oseto/dm Has provider been notified: No 05/22/25 10:23 Consult to Nephrology Routine Consulting Provider: [facility] Reason for consultation: Ckd and picc line clearence Has provider been notified: No DS: Diagnosis Discharge Diagnosis (1) Acute leg pain: Status: Acute (2) Skin ulcer of left great toe: Status: Acute (3) Osteomyelitis of great toe of left foot: Status: Acute DS: Summary Hospital Course Hospital Course: From admission HPI: Date of Service: 05/19/25 Chief Complaint: left foot infection This is a 65-year-old Fijian-speaking male with pertinent history of congestive heart failure with reduced ejection fraction, insulin-dependent type 2 diabetes mellitus, CAD status post stents, 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 Patient states his symptoms started about 2 weeks prior to presentation. He was seen outpatient at sanitation technician office on 05/10 who advised the patient to come to the ER but patient did not come to the ER and did not take any treatment for the same. No inciting factor or trauma noted. P atient states initially the redness and swelling started in his distal foot but has spread proximally over the last 1 week. It is associated with swelling, warmth and pain. Also noticed foul-smelling purulent drainage from left great toe. Admits associated chills but no documented fever. No chest pain, palpitations, shortness of breath, wheezing, orthopnea, PND, changes in urinary or bowel habits. History obtained with the help of refining equipment operator. In the emergency department, venous duplex left lower extremity negative and patient was given empiric IV antibiotics. Hospital course: Pt was admitted to the hospital for left lower extremity cellulitis and imaging consistent with left great toe osteomyelitis. Pt was seen and evaluated by both Orthopedics and vascular surgery, who did not feel any acute surgical intervention were indicated at this time and suggested pt be treated with IV antibiotics. Pt was seen by infectious disease who suggested treating with daptomycin for a total of 6 weeks set to end on 07/03/2025. Pt had PICC line placed for treatment at home with IV antibiotics and should stay in place for the next six weeks. Pt was educated on proper PICC line care. The pt should follow up with Infectious Disease in 2 weeks and with Wound Care in 1-2 weeks. Pt will have weekly labs for CPK and CBC while on daptomycin. Hospital Course was complicated by VINCENT on CKD likely secondary from vancomycin and continuing diuretics. Vancomycin was stopped, diuretics were held, and pt was given IVF to good effect. Was followed by Nephrology who deemed pt back to baseline earlier today. Pt should continue to hold torsemide until he follows up with Dr. Jaeger and nephrology in one week. For hx of congestive heart failure, Hold torsemide, but continue Entresto and carvedilol For insulin-dependent type 2 diabetes, continue Trulicity and home insulin dosing with sliding scale insulin For BPH continue tamsulosin For hypothyroidism continue levothyroxine For GERD continue pantoprazole Time Attestation Discharge Coordination Time (in mins): 35 Quality: Safe Use of Opioids Does Pt have an Active Cancer Diagnosis on the Problem List?: No Quality: Stroke Does the patient have a stroke diagnosis?: No Physical Exam Exam: Exam: General: AOx3, no acute distress Resp: CTA bilaterally CVS: S1, S2, RRR GI: +BS, NT, no distention Skin: Warm, dry Neuro: Cranial nerves II-XII grossly intact bilaterally. Motor grossly intact bilaterally Extremities: Distal pedal pulses 2+, left foot in clean dressing. Pt seen ambulating in room without difficulty Psych: Appropriate affect Vital Signs: Vital Signs: Last Vital Signs Temp 97.0 F 05/26/25 08:00 Pulse 87 05/26/25 08:00 Resp 16 05/26/25 08:00 BP 144/73 H 05/26/25 08:00 Pulse Ox 97 05/26/25 08:00 O2 Del Method Room Air 05/26/25 08:00 BMI result Body Mass Index 34.7 DS: Data Data Completed and Pending Labs on day of discharge: Laboratory Results - last 24 hr 05/25/25 05/25/25 05/26/25 16:06 19:25 07:23 Sodium Potassium Chloride Carbon Dioxide Anion Gap BUN Creatinine Estim Creat Clear Calc Estimated GFR POC Glucose 127 H 252 H 133 H Random Glucose Calcium 05/26/25 05/26/25 08:06 11:19 Sodium 138 Potassium 3.9 Chloride 97 Carbon Dioxide 30 H Anion Gap 15 BUN 38 H Creatinine 1.87 H Estim Creat Clear Calc 48.8 Estimated GFR 36 POC Glucose 305 H Random Glucose 142 H Calcium 9.2 Discharge Plan Discharge Anticipated Discharge Date/Time: 05/23/25 12:23 Patient Disposition: Home Health Service Discharge Diagnosis: leg cellulitis [facility]errals: [facility] [Other] - 1 Week Rubén PANDA [Outside] - 1 Week Sherman Jaeger MD [Physician, Critical Care ([facility])] - 1 Week Referral Note: Follow up for VINCENT on CKD Elayne Mosley MD [Physician, Infectious Disease] - 1 Week Referral Note: F/U for left great toe nicolao Kim Juarez MD [Physician, Wound Care] - 1 Week Physician,Chandni J [Physician, Medical] - 1 Week Discharge Medications: Continued carvedilol 12.5 mg Tablet 12.5 mg PO BID Rx Instructions: must administer with a meal/food tamsulosin 0.4 mg Capsule 0.4 mg PO DAILY pantoprazole 40 mg Tablet,Delayed Release (Dr/Ec) 40 mg PO DAILY@0630 levothyroxine 50 mcg Capsule 50 mcg PO DAILY@0600 insulin degludec [Tresiba FlexTouch U-100] 100 unit/mL (3 mL) Insulin Pen 32 unit SUBCUT DAILY Entresto 97-103 mg Tablet 1 tab PO BID Trulicity 1.5 mg/0.5 mL pen injector 1.5 mg subcut TU insulin lispro [Humalog KwikPen Insulin] 100 unit/mL insulin pen See Protocol SUBCUT TIDAC Protocol: Insulin Correction Scale Less than or equal to 110 ---- Give (units): 0 111 to 150 Give (units): 0 151 to 200 Give (units): 2 201 to 250 Give (units): 4 251 to 300 Give (units): 6 301 to 350 Give (units): 8 Greater than 350 Give (units): 10 Call MD if Blood Glucose > : 350 gabapentin 100 mg capsule 100 mg PO TID albuterol sulfate 90 mcg/actuation Hfa Aerosol Inhaler 2 puff INHALATION Q4H PRN (Reason: Shortness Of Breath Or Wheezing) aripiprazole 2 mg Tablet 2 mg PO DAILY Held torsemide 20 mg Tablet 40 mg PO BID Hold Instructions: Resume on 06/05/25. Hold until your nephrology visit. Dr. Delong will make further recommendations about whether to resume or continue holding. Patient Comments: Patient was instructed to take 80 mg bid for 2 days on 05/19/25 and 05/20/25. He only took 1 dose of the 80 mg in the morning on 05/19/25. atorvastatin 80 mg tablet 80 mg PO BEDTIME Hold Instructions: Resume on 07/03/25. Hold while on daptomycin, per infectious disease Discharge Orders: Discharge Order (Routine); Ordered 05/26/25 Ordered By: Chuck Singh Activity on Discharge: As tolerated Stand Alone Forms: Patient Portal Discharge page Print Language: Fijian Activity Restrictions/Additional Instructions: Topical Wound Care Recommendations: Provide adequate and supplemental nutrition.? When applicable maintain blood glucose levels per Providers order. Limit standing and walking on left foot. Left Great Toe - Elevate Left Leg on pillows be sure to float heels.? Cleanse with saline, pat dry. ?Apply Iodosorb / Iodoflex to wound bed cover with gauze and tape. ?Change every other day.?? Iodoflex left at bedside. Note the Iodoflex will be applied brown and over the course of time as the Iodine is absorbed into the wound bed the color will change to yellow / cream signifying time to replace.?? Iodoflex available from wound nurse office. At time of discharge patient should switch to Durafiber packing covered with dry gauze and change every other day as well. Recommend follow up out patient Wound Clinic at [address] [place] [id number] and to call for an appointment at time of discharge. [phone].? Care Plan Goals: See below. Health Concerns: Left great toe osteomyelitis Acute kidney injury Plan of Treatment: You were admitted to the hospital for left lower extremity cellulitis with left great toe osteomyelitis related to chronic diabetes ulceration. You were seen by infectious disease and vascular surgery and treated with IV antibiotics. You experienced an VINCENT on CKD during treatment, for which you were seen by Nephrology and given IV fluid. For left great toe osteomyelitis, you will be treated with daptomycin 650 mg IV daily for the next 6 weeks, set to end on 07/03. Antibiotics will be administered through your PICC line by [facility]. You will need weekly labs for CPK and CBC while on daptomycin Follow up outpatient with Infectious Disease in 2 weeks. Follow up with Wound Care for left great toe ulceration. For acute kidney injury, follow up with nephrology in Dr. Jaeger next week. The nephrology office will contact you to set up an appointment. Hold torsemide until nephrology vist. Hold atorvastatin while on daptomycin, resume on 07/04/2025. Assessment: See discharge summary Discharge Date/Time: 05/26/25 14:21
--- NOTE | 2025-05-26 14:22 | W.MHC.F2F ---
Service Date Service Date: 05/26/25 Encounter Date of encounter: 05/26/25 Reasons for Services Signs and symptoms assessed: Left great toe osteomyelitis Reason for [facility]: administration of IV, SQ, or IM injection, central line care and medication management Homebound: Leaving the home is medically contraindicated at this time without the asist of a device and/or another person due th the listed conditions above and below. Reason homebound: other Certification: Based on the above findings, I certify that this patient is confined to the home and needs intermittent [facility] care, physical therapy and/or speech therapy, or continues to need occupational therapy. The patient is under my care, and I have initiated the establishment of the plan of care. The patient will be followed by a physician who will periodically review the plan of care. Time Spent With Patient Time: Total time managing care of this patient today ____ minutes.
--- NOTE | 2025-05-26 14:50 | MHC.CM.PN ---
IMM 05/26/25 Patient is discharged today to home. He is ordered for home infusion services. [facility] have been notified of the discharge today. [facility] document for home services complete.Transportation provided to home via [employer] shuttle. 6 weeks IV Dapto @ home.
--- NOTE | 2025-05-29 12:55 | P.CDIM_ITS ---
PROVIDER RESPONSE TEXT: To clarify, the appropriate diagnosis supported by the clinical indicators: Acute osteomyelitis left great toe QUERY TEXT: PHYSICIAN'S DOCUMENTATION REQUEST Date of Query: 05/27/2025 06:15 AM EDT Patient Name: Yanick Arita Admit Date: 05/19/2025 Dear Chuck BOLANOS, RETROSPECTIVE QUERY A review of the medical record indicates additional documentation may be needed. Please review below and update the documentation accordingly. Clinical Indicators: Progress notes: Left great toe osteomyelitis. PICC line, antibiotics for six weeks. Based on the above, please clarify in the Progress Notes further specificity regarding the acuity of the documented Osteomyelitis. Acute osteomyelitis left great toe Subacute osteomyelitis Chronic osteomyelitis Chronic multifocal osteomyelitis Other (explain) Clinically unable to determine (explain) Thank you, Laura Gerardo, CCS, CDIS Use of terms such as suspected, likely, concern for, or probable (associated with a specific diagnosis that is being evaluated, monitored, or treated as if it exists) are acceptable and can be coded in the inpatient setting, when documented at the time of discharge. Please use your independent medical judgment in providing your response. THIS QUERY IS PART OF THE PERMANENT MEDICAL RECORD
== END 2025-05-26 14:21 | disposition home health service (06) | DRG 638 ==
LOC: HO.ED 18:53 → HO.EDOVER 19:12 → HO.S3 19:18
PROVIDERS: Internal Medicine; Internal Medicine Critical Care Medicine; Nurse Practitioner Family; Physician Assistant Medical; Admitting Provider Student in an Organized Health Care Education/Training Program; Emergency Provider Emergency Medicine Emergency Medical Services; PCP Physician Assistant; Visit Provider Student in an Organized Health Care Education/Training Program
DX: E11.69 Type 2 diabetes mellitus with other specified complication (principal); I13.0 Hypertensive heart and chronic kidney disease with heart failure and stage 1 through stage 4 chronic kidney disease, or unspecified chronic kidney disease; L03.116 Cellulitis of left lower limb; I50.22 Chronic systolic (congestive) heart failure; Z95.811 Presence of heart assist device; M86.172 Other acute osteomyelitis, left ankle and foot; N18.30 Chronic kidney disease, stage 3 unspecified; E11.22 Type 2 diabetes mellitus with diabetic chronic kidney disease; I25.10 Atherosclerotic heart disease of native coronary artery without angina pectoris; Z95.5 Presence of coronary angioplasty implant and graft; J44.9 Chronic obstructive pulmonary disease, unspecified; E11.65 Type 2 diabetes mellitus with hyperglycemia; E11.621 Type 2 diabetes mellitus with foot ulcer; K21.9 Gastro-esophageal reflux disease without esophagitis; N40.0 Benign prostatic hyperplasia without lower urinary tract symptoms; N17.9 Acute kidney failure, unspecified; E86.1 Hypovolemia; L97.521 Non-pressure chronic ulcer of other part of left foot limited to breakdown of skin; E03.9 Hypothyroidism, unspecified; E11.628 Type 2 diabetes mellitus with other skin complications; E66.812 Obesity, class 2; T36.8X5A Adverse effect of other systemic antibiotics, initial encounter; T50.2X5A Adverse effect of carbonic-anhydrase inhibitors, benzothiadiazides and other diuretics, initial encounter; Z71.3 Dietary counseling and surveillance; Z68.34 Body mass index [BMI] 34.0-34.9, adult; Z79.4 Long term (current) use of insulin; Z79.85 Long-term (current) use of injectable non-insulin antidiabetic drugs; Z79.890 Hormone replacement therapy; Z79.899 Other long term (current) drug therapy
CPT/HCPCS: 36415; 36573; 71045; 73660; 80048; 80053; 80202; 81001; 82550; 82565; 82947; 83605; 83735; 83880; 85025; 85652; 85999; 86140; 87040; 93971; 94640; 99285; C1751; J0878; J1200; J1650; J2270; J2543; J3373; J3374

== ENCOUNTER → 2025-05-19 17:11 | Outpatient (BNV) | payer OTHER, SELFPAY | PROVIDERS: Emergency Provider Emergency Medicine Emergency Medical Services; Visit Provider Radiology Diagnostic Radiology | DX: R22.42 Localized swelling, mass and lump, left lower limb (principal); J18.9 Pneumonia, unspecified organism; M86.672 Other chronic osteomyelitis, left ankle and foot | CPT/HCPCS: 71045; 73660; 93971 ==

== ENCOUNTER → 2025-05-19 19:06 | Outpatient (BNV) | payer OTHER, SELFPAY | PROVIDERS: Admitting Provider Student in an Organized Health Care Education/Training Program; Emergency Provider Emergency Medicine Emergency Medical Services; Visit Provider Student in an Organized Health Care Education/Training Program | DX: M79.605 Pain in left leg (principal); L97.521 Non-pressure chronic ulcer of other part of left foot limited to breakdown of skin | CPT/HCPCS: 99222; 99231; 99232 ==

== ENCOUNTER → 2025-05-19 19:06 | Outpatient (BNV) | payer OTHER, SELFPAY | PROVIDERS: Admitting Provider Student in an Organized Health Care Education/Training Program; Emergency Provider Emergency Medicine Emergency Medical Services | DX: M79.89 Other specified soft tissue disorders (principal); L97.521 Non-pressure chronic ulcer of other part of left foot limited to breakdown of skin; E11.9 Type 2 diabetes mellitus without complications; Z79.4 Long term (current) use of insulin | CPT/HCPCS: 99222 ==

== ENCOUNTER → 2025-05-19 19:06 | Outpatient (BNV) | payer OTHER, SELFPAY | PROVIDERS: Admitting Provider Student in an Organized Health Care Education/Training Program; Emergency Provider Emergency Medicine Emergency Medical Services; Visit Provider Nurse Practitioner Family | DX: N17.9 Acute kidney failure, unspecified (principal); N18.9 Chronic kidney disease, unspecified; L03.116 Cellulitis of left lower limb | CPT/HCPCS: 99222; 99231 ==

== ENCOUNTER → 2025-05-19 19:06 | Outpatient (BNV) | payer OTHER, SELFPAY | PROVIDERS: Admitting Provider Student in an Organized Health Care Education/Training Program; Emergency Provider Emergency Medicine Emergency Medical Services; Visit Provider Surgery Vascular Surgery | DX: L97.521 Non-pressure chronic ulcer of other part of left foot limited to breakdown of skin (principal) | CPT/HCPCS: 99222 ==

== ENCOUNTER → 2025-05-19 19:06 | Outpatient (BNV) | payer OTHER, SELFPAY | PROVIDERS: Admitting Provider Student in an Organized Health Care Education/Training Program; Emergency Provider Emergency Medicine Emergency Medical Services; Visit Provider Internal Medicine | DX: M86.172 Other acute osteomyelitis, left ankle and foot (principal) | CPT/HCPCS: 99232 ==

== ENCOUNTER 2025-05-31 09:48 | Outpatient (AMB) | payer OTHER, SELFPAY ==
--- OUTSIDE RECORDS SUMMARY | 2025-05-31 10:23 | XMS_ITS | Clinical Summary ---
Author Organization [facility] Address [address] [address] Phone Care Team Providers Care Transportation Engineer Name Role Phone Unavailable Primary Care Provider [...] age to complete this topic Insurance Medicaid [place] [facility] Medicare UHC Medicare Medicaid [place]
--- OUTSIDE RECORDS SUMMARY | 2025-05-31 10:23 | XMS_ITS | Clinical Summary ---
Author Organization [facility] Address [address] [place] [address] Care Team Providers Care Lien Searcher Name Role Phone Cassandra Moses PA-C Primary Care Provider [phone] Source Comments PLEASE NOTE, if this patient [...] mL 04/16/20 23 Active MISCELLANEOUS MEDICAL SUPPLY [facility] May have home care services as needed 1 Each 07/24/20 23 Active MISCELLANEOUS MEDICAL SUPPLY MISCIndications :Left leg pain,Left foot drop by miscellaneous route daily. Left foot AFO. Please sent to [facility]. Fax - [phone]. BMI 32.56 1 Each 11/29/19 24 Active [...] complication, with long-term current use of insulin ([facility]),Essent ial (primary) hypertension Take 1 [...] complication, with long-term current use of insulin ([facility]),Essent ial (primary) hypertension,At risk for falling,Diabeti c feet ([facility]) by miscellaneous route daily. Diabetic [...] complication, with long-term current use of insulin ([facility]),Essent ial (primary) hypertension,At risk for falling,Diabeti c feet ([facility]) by miscellaneous route daily. Diabetic shoes size 11.5 for daily use. Diagnosis diabetes, obesity. Length of need 99 months 1 Each 10/27/20 Active pen needle, diabetic 31 gauge x 5/16 ndleIndications :Type 2 diabetes mellitus with hyperglycemia, with long-term current use of insulin ([facility]) To inject insulin 4 times daily. 100 Each 11/06/19 Active blood-glucose sensor (FREESTYLE MAIDA 3 PLUS SENSOR) deviIndications :Type 2 diabetes mellitus with hyperglycemia, with long-term current use of insulin ([facility]) Place 1 sensor to back of upper arm every 15 days. Use to monitor blood sugar continuously (Freestyle Maida 3 Plus) 2 Each 11/20/19 Active blood-glucose meter,continuou s (FREESTYLE MAIDA 3 READER) miscIndications :Type 2 diabetes mellitus with hyperglycemia, with long-term current use of insulin ([facility]) 1 Units by miscellaneous route daily. To check BS daily. 1 Each 11/20/19 Active blood sugar diagnostic stripsIndicatio ns:Type 2 diabetes mellitus with hyperglycemia, with long-term current use of insulin ([facility]) 1 Each 4 (four) times daily Precision Justin test Strips to check sugar 4 times a day. Pt wants home delivery of his sensor/test strips. 100 Each 11/20/19 25 Active insulin lispro 100 unit/mL injection penIndications: Uncontrolled type 2 diabetes mellitus with hypoglycemia without coma ([facility]) SLIDING SCALE 3 times a [...] 2 diabetes mellitus with hypoglycemia without coma ([facility]) INJECT 32 UNITS INTO THE SKIN EVERY MORNINGStrength: 100 unit/mL (3 mL) 15 mL 1 01/30/20 25 Active ENTRESTO 97-103 mg tabIndications: Congestive heart failure, unspecified HF chronicity, unspecified heart failure type ([facility]) TOME 1 TABLETA POR VIA ORAL DOS VECES AL ADELSO 180 Tablet 1 02/02/20 25 Active torsemide (DEMADEX) 20 mg tabletIndicatio ns:Congestive heart failure, unspecified HF chronicity, unspecified heart failure type ([facility]) TAKE 2 TABLETS POR VIA ORAL DOS VECES AL ADELSO 360 Tablet 1 04/07/20 25 Active pantoprazole (PROTONIX) 40 mg EC tabletIndicatio ns:Gastroesopha geal reflux disease without esophagitis TOME 1 TABLETA POR VIA ORAL TODOS LOS POZO 90 Tablet 1 04/07/20 25 Active carvediloL (COREG) 12.5 mg tabletIndicatio ns:Congestive heart failure, unspecified HF chronicity, unspecified heart failure type ([facility]),Hypert ension, essential TOME LLOYD TABLETA 2 VECES AL ADELSO CON LAS COMIDAS 180 Tablet 1 04/07/20 25 Active levothyroxine 50 mcg tabletIndicatio ns:Hypothyroidi sm, unspecified type TOME 1 TABLETA POR VIA ORAL TODOS LOS POZO. 84 Tablet 2 04/14/20 25 Active dulaglutide (TRULICITY) 1.5 mg/0.5 mL pen injectorIndicat ions:Type 2 diabetes mellitus with hyperglycemia, with long-term current use of insulin ([facility]) Inject 1.5 mg into the skin once a week. 2 mL 2 05/03/20 25 Active dulaglutide (TRULICITY) 0.75 mg/0.5 mL pen injectorIndicat ions:Type 2 diabetes mellitus with hyperglycemia, with long-term current use of insulin ([facility]) Inject 0.75 mg into the [...] disorder 05/09/2022 Constipation 04/18/2022 Exacerbation of asthma ([facility]) 04/18/2022 Gout 04/18/2022 Hypothyroidism 04/18/2022 Type 2 diabetes mellitus wit h hyperglycemia, with long-term current use of insulin ([facility]) 04/18/2022 Congestive heart failure ([facility]) 022 Elevated prostate specific antigen (PSA) 022 Pneumonia due to coronavirus disease 2019 (CODE) 02/04/2022 Acute kidney failure, unspecified ([facility]) 01/31/2022 Essential (primary) hypertension 01/31/2022 Stage 3 chronic kidney disease ([facility]) 0 01/31/2022 Encounters Date Type Department Care Team Description 04/29/2025 3:40 PM EDT Interim Notes [facility] Unit [address] [place] [phone] 04/29/2025 3:20 PM EDT Office Visit [address] [phone] Nikolai Stephenson, PharmD Jesenia Sampson 03/14/2025 Interim Notes [address] [address] Cassandra Moses PA-C 03/12/2025 Results Follow-Up [facility] [address] [place] [address] Nikolai Stephenson, PharmD 03/11/2025 11:00 AM EDT Office Visit [address] [phone] Nikolai Stephenson, PharmD Kelley Hernandez 03/04/2025 Interim Notes [address] [address] Herman Corrigan MA from Last 3 Months [...] Description 06/09/2025 8:10 AM EDT Interim Notes [address] [address] 06/09/2025 9:00 AM EDT Office Visit [address] [phone] Didi Stein PA-C [address] [place] [phone] 06/09/2025 9:40 AM EDT Interim Notes [address] [address] 06/17/2025 2:20 PM EDT Interim Notes [address] [address] 06/17/2025 3:00 PM EDT Office Visit [address] [phone] AntilNikolai, PharmD [address] [place] [address] 06/17/2025 3:20 PM EDT Interim Notes [address] [address] Health Maintenance Due Date Last Done Comments Anxiety Screening 1960 Dental FMX/Pano 1960 Medicare Annual Wellness Visit 02/22/1978 Imm-DTaP/Tdap/Td (1 - Tdap) 02/22/1979 Imm-Pneumococcal 50+ (1 of 2 - PCV) 02/22/1979 CT Colonography 02/22/2005 Colonoscopy 02/22/2005 Colorectal Cancer Screening 02/22/2005 FIT/gFOBT 02/22/2005 Fecal DNA 02/22/2005 Flexible Sigmoidoscopy 02/22/2005 Imm-Zoster, Recombinant (1 of 2) 02/22/2010 Tia-[id number] ( season) 2024 023, 02/15/2022 Retinopathy Screening [...] hyperglycemia, with long-term current use of insulin ([facility]) HEALTH HISTORY SCANNED DOCUMENT 03/31/2025 3:00 AM EDT MICROALBUMIN/CREATINI NE RATIO, URINE, RANDOM Routine 03/11/2025 11:41 AM EDT Type 2 diabetes mellitus with hyperglycemia, with long-term current use of insulin ([facility]) HEMOGLOBIN GLYCOSYLATED A1C Routine 03/11/2025 11:17 AM EDT Type 2 diabetes mellitus with hyperglycemia, with long-term current use of insulin ([facility]) GLUCOSE, BLOOD BY GLUCOSE MONITORING DEVICE (CLIA WAIVED)POCT Routine 03/11/2025 10:46 AM EDT Type 2 diabetes mellitus with hyperglycemia, with long-term current use of insulin ([facility]) TSH W/RFLX FREE T4 Routine [...] 2 diabetes mellitus with hypoglycemia without coma ([facility]) REFERRAL TO DIABETIC RETINAL EXAM Routine 11/29/2023 3:00 AM EST Uncontrolled type 2 diabetes mellitus with hypoglycemia without coma ([facility]) HIV 1/2 AG & AB W/RFLX (4TH [...] included. GLUCOSE 128(A) 70 - 100 mg/dL [facility]- BACK OFFICE POCT Capillary Blood Blood / Unknown 3:30 PM EDT Nikolai Contesteffi PharmD LAB - BLOOD DRAW Final Resu lt [facility]- BACK OFFICE POCT * HEALTH HISTORY SCANNED DOCUMENT (03/31/2025 3:00 AM EDT) 03/31/2025 3:00 AM EDT Chga Provider Default SCAN OTHER ORDERS Final Re sult * MICROALBUMIN/CREATININE RATIO, URINE, RANDOM (03/11/2025 11:41 AM EDT) CREATININE, RANDOM URINE 48 20 - 320 mg/dL Gone! MICROALBUMIN 0.8 mg/dL [facility] Comment: Reference Range Not established MICROALBUMIN/CREA TININE RATIO, RANDOM URINE 17 <30 mg/g creat Gone! Comment: The ADA defines abnormalities in albumin [...] AM EDT 03/11/2025 11:41 AM EDT Narrative [facility] - 03/12/2025 8:07 PM EDT SPLIT 03/11/2025 FROM [id number] Octavio Guerrier PharmD LAB URINE AMBULATORY Viviana l Result [facility] [address] [place] [address], Gone! [address] [place] [phone] * (ABNORMAL) HEMOGLOBIN GLYCOSYLATED A1C (03/11/2025 11:17 AM EDT) HEMOGLOBIN A1C 8.8(H) <5.7 % Gone! Comment: For someone without known diabetes, a [...] AM EDT 03/11/2025 11:17 AM EDT Narrative [facility] [employer] [facility] - 03/12/2025 3:48 AM EDT PATIENT UNABLE TO VOID; ADVISED TO RETURN FOR COLLECTION. Octavio GaitanD LAB - BLOOD DRAW Final Re sult Performing Organization Address [facility] Co de Phone Number [facility] [address] [address], [employer] [address] [address] * TSH W/RFLX FREE T4 (12/21/2024 3:11 PM EST) TSH W/REFLEX TO FT4 0.68 0.40 - 4.50 mIU/L Gone! Blood Blood / Unknown 12/21/2024 3 :11 PM EST 12/21/2024 3:11 PM EST Cassandra Moses PA-C LAB - BLOOD DRAW Edited Resu lt - Final Performing Organization Address City/[facility]/ZIP Co de Phone Number [employer] [address] [address], [employer] [address] [phone] * (ABNORMAL) COMPREHENSIVE METABOLIC PANEL (12/21/2024 3:11 PM EST) GLUCOSE 199(H) 65 - 99 mg/dL [employer] [facility] Comment: Fasting reference interval For someone without known diabetes, a glucose value >125 mg/dL indicates that they may have diabetes and this should be confirmed with a follow-up test. UREA NITROGEN (BUN) 27(H) 7 - 25 mg/dL [facility] CREATININE (blood) 1.95(H) 0.70 - 1.35 mg/dL [facility] EGFR 38(L) > OR = 60 mL/min/1. 73m2 [facility] BUN/CREATININE RATIO 14 6 - 22 (calc) [facility] SODIUM 136 135 - 146 mmol/L [facility] POTASSIUM 4.4 3.5 - 5.3 mmol/L [facility] [place] [employer] CHLORIDE 95(L) 98 - 110 mmol/L [facility] CARBON DIOXIDE 30 20 - 32 mmol/L [facility] CALCIUM 9.4 8.6 - 10.3 mg/dL [facility] PROTEIN, TOTAL 6.8 6.1 - 8.1 g/dL [facility] ALBUMIN 4.1 3.6 - 5.1 g/dL [facility] GLOBULIN 2.7 1.9 - 3.7 g/dL (calc) [facility] ALBUMIN/GLOBULI N RATIO 1.5 1.0 - 2.5 (calc) [facility] BILIRUBIN, TOTAL 0.4 0.2 - 1.2 mg/dL [facility] ALKALINE PHOSPHATASE 160(H) 35 - 144 U/L [facility] AST 15 10 - 35 U/L [facility] ALT 19 9 - 46 U/L [facility] Blood Blood / Unknown 12/21/2024 3 :11 PM EST 12/21/2024 3:11 PM EST Cassandra Moses PA-C LAB - BLOOD DRAW Final Resul t [facility] [address] [address], [facility] [address] [address] * REFERRAL TO PODIATRY (01/14/2024 3:00 AM EDT) 01/14/2024 3:00 AM EDT us Cassandra Moses PA-C REFERRAL Final Result * REFERRAL FOR DIABETIC RETINAL EXAM (11/29/2023 3:00 AM EST) 11/29/2023 3:00 AM EST Cassandra Moses PA-C REFERRAL Final Result * Hep C Antibody with Reflex HCV RNA (04/17/2022 9:55 AM EDT) HEPATITIS C ANTIBODY NON-REACT ANTHONY NON-REACT ANTHONY Gone! SIGNAL TO CUT-OFF 0.11 <1.00 Gone! Comment: HCV antibody was non-reactive. There is no laboratory evidence of HCV infection. In most cases, no further action is required. However, if recent HCV exposure is suspected, a test for HCV RNA (test code 47090) is suggested. For additional information please refer to http://education.LETSGROOP/faq/UEC64r6 (This link is being provided for informational/ educational purposes only.) Blood Blood / Unknown 04/17/2022 9 :55 AM EDT 04/17/2022 9:56 AM EDT Cassandra Moses PA-C LAB - BLOOD DRAW Edited Resu lt - Final [facility] [address] [address], [employer] [facility] [address] [address] * HIV Ag & Ab with Reflex Western Blot (04/17/2022 9:55 AM EDT) HIV AG/AB, 4TH GEN NON-REAC TIVE NON-REAC TIVE Gone! Comment: HIV-1 antigen and HIV-1/HIV-2 antibodies were [...] purpose. For additional information please refer to http://[employer].LETSGROOP/faq/WVV186 (This link is being provided for informational/ educational purposes only.) The performance of this assay has not been clinically validated in patients less than 2 years old. Blood Blood / Unknown 04/17/2022 9 :55 AM EDT 04/17/2022 9:56 AM EDT us Cassandra Moses PA-C LAB - BLOOD DRAW Final Resul t [facility] [address] [address], [facility] [address] [address] * (ABNORMAL) Lipid Panel (with Reflex Direct LDL) (04/17/2022 9:55 AM EDT) CHOLESTEROL, TOTAL 252(H) <200 mg/dL Gone! HDL CHOLESTEROL 64 > OR = 40 mg/dL Gone! TRIGLYCERIDES 313(H) <150 mg/dL Gone! Comment: If a non-fasting specimen was collected, consider repeat triglyceride testing on a fasting specimen if clinically indicated. Laverne et al. J. of Clin. Lipidol. 2015;9:129-169. LDL-CHOLESTEROL 143(H) 99 mg/dL (calc) Gone! Comment: Reference range: <100 Desirable range <100 mg/dL for primary prevention; <70 mg/dL for patients with CHD or diabetic patients with > or = 2 CHD risk factors. LDL-C is now calculated using the Gerald-Lonny calculation, which is a validated novel method providing better accuracy than the Friedewald equation in the estimation of LDL-C. Gerald SS et al. GIOVANNA. 2013;310(19): 9960-2810 (http://education.[employer]/faq/QKE061) CHOL/HDLC RATIO 3.9 <5.0 (calc) Gone! NON-HDL CHOLESTEROL 188(H) <130 mg/dL (calc) Gone! Comment: For patients with diabetes plus 1 major ASCVD risk factor, treating to a non-HDL-C goal of <100 mg/dL (LDL-C of <70 mg/dL) is considered a therapeutic option. Blood Blood / Unknown 04/17/2022 9 :55 AM EDT 04/17/2022 9:56 AM EDT Cassandra Moses PA-C LAB - BLOOD DRAW Final Resul t [facility] [address] [address], [facility] [address] [address] from Last 3 Months or Most Recently Relevant to Health Maintenance Insurance [place] MEDICAID [facility] Care Teams Lien Searcher Relationship Specialty Start Date End Date Cassandra Moses PA-C [address] [place] [address] PCP - General Internal Medicine 12/06/21
--- OUTSIDE RECORDS SUMMARY | 2025-05-31 10:23 | XMS_ITS | Clinical Summary ---
Author Organization [facility] Address [address] [place] [address] Phone Care Team Providers Care Title Vehicle Service Attendant Name Role Phone Cassandra Moses Primary Care [...] 11/15/2024 12:54 PM EST Plan of Treatment Upcoming Encounters Date Type Department Care Team (Late st Contact Info) Description 08/26/2025 7:00 AM EDT Ancillary Procedure [facility] [address] [place] [address] Health Maintenance Due Date Last Done Comments [...] mg/dL LAB CHEMISTRY METHOD 11/16/2024 4:40 AM [facility] Triglycerides 189(H) 0 - 150 mg/dL LAB CHEMISTRY METHOD 11/16/2024 4:40 AM [facility] HDL 35(L) >=40 mg/dL LAB CHEMISTRY METHOD 11/16/2024 4:40 AM [facility] LDL Calculated 69 0 - 100 mg/dL LAB CHEMISTRY METHOD 11/16/2024 4:40 AM [facility] VLDL Cholesterol Rad 37.8 mg/dL LAB CHEMISTRY METHOD 11/16/2024 4:40 AM [facility] Non HDL Chol. (LDL+VLDL) 107 <145 mg/dL LAB CHEMISTRY METHOD 11/16/2024 4:40 AM [facility] Chol/HDL Ratio 4.1 0.0 - 4.4 LAB CHEMISTRY METHOD 11/16/2024 4:40 AM [facility] Blood Venous blood specimen / Unknown Venipuncture / Unknown 11/16/2024 3:55 AM EST 11/16/2024 3:59 AM EST Nan BOLANOS LAB BLOOD ORDERABLES Fi nal Result [facility] [address] [place] [address], * (ABNORMAL) Basic metabolic panel (11/16/2024 3:55 AM EST) Sodium 138 133 - 145 mmol/L LAB CHEMISTRY METHOD 11/16/2024 4:39 AM [facility] Potassium 3.7 3.5 - 5.5 mmol/L LAB CHEMISTRY METHOD 11/16/2024 4:39 AM [facility] Chloride 107 96 - 110 mmol/L LAB CHEMISTRY METHOD 11/16/2024 4:39 AM [facility] CO2 24 21 - 32 mmol/L LAB CHEMISTRY METHOD 11/16/2024 4:39 AM [facility] Anion Gap 7 3 - 11 LAB CHEMISTRY METHOD 11/16/2024 4:39 AM [facility] Glucose 157(H) 70 - 100 mg/dL LAB CHEMISTRY METHOD 11/16/2024 4:39 AM [facility] BUN 23 5 - 25 mg/dL LAB CHEMISTRY METHOD 11/16/2024 4:39 AM [facility] Creatinine 1.58(H) 0.70 - 1.30 mg/dL LAB CHEMISTRY METHOD 11/16/2024 4:39 AM [facility] eGFR 49(L) >=60 mL/min/1. 73m2 LAB CHEMISTRY METHOD 11/16/2024 4:39 AM [facility] Comment:Calculation based on the Chronic Kidney Disease Epidemiology Collaboration (CKD-EPI) equation refit without adjustment for race. BUN/Creatinine Ratio 14.6 LAB CHEMISTRY METHOD 11/16/2024 4:39 AM [facility] Calcium 8.2(L) 8.5 - 10.5 mg/dL LAB CHEMISTRY METHOD 11/16/2024 4:39 AM [facility] Blood Venous blood specimen / Unknown Venipuncture / Unknown 11/16/2024 3:55 AM EST 11/16/2024 3:59 AM EST us Antonio Doss MD LAB BLOOD ORDERABLES Final Res ult [facility] [address] [place] [address], * (ABNORMAL) Hemoglobin A1c (11/15/2024 1:54 PM EST) Hemoglobin A1C 13.5(H) <6.5 % LAB CHEMISTRY METHOD 11/16/2024 1:32 PM EST [facility] Mean Bld Glu Estim. 341 mg/dL LAB CHEMISTRY METHOD 11/16/2024 1:32 PM EST [facility] Blood Venous blood specimen / Unknown Venipuncture / Unknown 11/15/2024 1:54 PM EST 11/15/2024 2:08 PM EST us Nan BOLANOS LAB BLOOD ORDERABLES Fi nal Result [facility] [address] [place] [address], [place] [phone] from Last 3 Months or Most Recently Relevant to Health Maintenance Insurance [facility] Member Subscriber Plan / Payer (Ef fective 2025-Present) Name:Yanick Power Relation to Subscriber:Self Name:Yanick Arita Payer ID:[id number] Group ID:[id number] Type:Not on file Address: [place] [address] [address] [phone] Advance Directives * Full Code - Default [...] currently active code status orders. Care Teams Title Vehicle Service Attendant Relationship Specialty Start Date End Date Cassandra Moses PA [address] [place] [address] PCP - General 07/12/22
[2025-05-31 10:33] VITALS: PULSE 79; O2SAT 98; BMI 31.7
--- NOTE | 2025-05-31 10:33 | MHC.OFFVIS ---
Vital Signs 05/31/25 10:33 Height 6 ft 2 in Weight 247 lb BMI 31.7 Pulse 79 Pulse Source Pulse Oximeter Pulse Oximetry (%) 98 Oxygen Delivery Method Room Air Intake Visit Reasons: [facility] reff//Left Great Toe OM Allergies No Known Drug Allergies Allergy (Verified 05/31/25 10:34) Unknown HPI HPI [facility] reff//Left Great Toe OM: Details: He is doing well He has no complaints. [facility] Medical History Osteomyelitis CKD (chronic kidney disease) stage 3, GFR 30-59 ml/min Class 1 obesity Social History Household Members: Spouse Housing: Apartment Do you presently have visiting nurse or other home services: Yes ([employer]) Patient Tobacco Use Status: Never used Tobacco e-Cigarette/Vaping Use: Never Used service: No Review of Systems Const All systems reviewed & are unremarkable except as noted in HPI and below Physical Exam Vital Signs: Last Vital Signs Pulse 79 05/31/25 10:33 Pulse Ox 98 05/31/25 10:33 Oxygen Delivery Method Room Air 05/31/25 10:33 BMI result Body Mass Index 31.7 Const Other: General: cooperative Orientation/consciousness: patient oriented x3 HEENT Head: Yes normal to inspection Mouth: Normal oral and palatal mucosa present Eyes General: appearance normal, both eyes and all related structures Pupils: Equal, round and reactive pupils present Resp Effort & Inspection: normal respiratory effort Cardio Rate: regular rate Rhythm: regular rhythm GI Palpation (GI): Soft to palpation and nontender General: Yes no CVA tenderness Back/Spine/Pelvis Back: no CVA tenderness Skin General skin exam: no rashes or lesions noted Neuro General: patient oriented x3 Cranial nerves: Yes CN's II-XII intact bilaterally and Yes Equal, round and reactive pupils present Extrem General: Yes normal to inspection Psych Appearance: grossly normal Assessment & Plan Assessment & Plan (1) Osteomyelitis of great toe of left foot: Comment: He is doing well. Code(s): M86.9 - Osteomyelitis, unspecified Category: Medical Plan: Finish antibiotics. Coding Level of Care Code Est Pt Level 3 (58400) Diagnoses Osteomyelitis of great toe of left foot M86.9
== END 2025-05-31 10:54 | disposition home or self-care (01) ==
LOC: HO.HCC 09:48
PROVIDERS: PCP Physician Assistant; Visit Provider Internal Medicine
DX: M86.9 Osteomyelitis, unspecified (principal)
CPT/HCPCS: 99213

== ENCOUNTER → 2025-05-31 09:48 | Outpatient (BNVA) | payer OTHER, SELFPAY | PROVIDERS: PCP Physician Assistant; Visit Provider Internal Medicine | DX: M86.172 Other acute osteomyelitis, left ankle and foot (principal) | CPT/HCPCS: 99212 ==

== ENCOUNTER 2025-06-04 13:56 | Outpatient (REF) | payer OTHER, SELFPAY ==
--- OUTSIDE RECORDS SUMMARY | 2024-04-02 06:49 | XMS_ITS | Continuity of Care Document ---
Author Organization [facility] Address [address] [address] Phone Care Team Providers Care Explosive Operator Supervisor Name Role Phone Shelly Horvath OT Unavailable Unavailable Advance Directives Directive Yes / No Effective Date File Name No Information Encounters Encounter Description Practice Location Reason(s) For Visit Diagnoses Date Provider [facility], [address] [address], [place], [place], [id number], [place] tel:[phone] [facility] No Information 2023 Alexandru Bravo. [address], [place], [id number], [place]. tel:[phone] Family History Family Member Type Diagnosis Age At Onset No Information Payers Payer name Insurance type Covered green party ID Authoriza tion(s) No Information Social History Type Description Quantity Date Captured Comments Sex Male Smoking Status No Information Chief Complaint And Reason For Visit No Information History Of Present Illness Encounter Date Complaint History Of Prese nt Illness No Information Instructions Date Instruction Additional Infor mation No Information Assessments Type Assessment Date No Information
[2025-06-04 13:59] LABS: MANUAL DIFF FLAG NO
--- OUTSIDE RECORDS SUMMARY | 2025-06-04 13:59 | XMS_ITS | Clinical Summary ---
Author Organization [facility] Address [address] [address] Phone Care Team Providers Care Ship'S Surveyor Name Role Phone Unavailable Primary Care Provider [...] age to complete this topic Insurance Medicaid [place] [facility] Medicare UHC [place]
--- OUTSIDE RECORDS SUMMARY | 2025-06-04 13:59 | XMS_ITS | Clinical Summary ---
Author Organization [facility] Address [address] [place] [address] Phone Care Team Providers Care Mining And Quarrying Machinery Repairer Name Role Phone Cassandra Moses Primary Care [...] Description 08/26/2025 7:00 AM EDT Ancillary Procedure [facility] [address] [place] [address] Health Maintenance Due Date Last [...] mg/dL LAB CHEMISTRY METHOD 11/16/2024 4:40 AM [facility] Triglycerides 189(H) 0 - 150 mg/dL LAB CHEMISTRY METHOD 11/16/2024 4:40 AM [facility] HDL 35(L) >=40 mg/dL LAB CHEMISTRY METHOD 11/16/2024 4:40 AM [facility] LDL Calculated 69 0 - 100 mg/dL LAB CHEMISTRY METHOD 11/16/2024 4:40 AM [facility] VLDL Cholesterol Rad 37.8 mg/dL LAB CHEMISTRY METHOD 11/16/2024 4:40 AM [facility] Non HDL Chol. (LDL+VLDL) 107 <145 mg/dL LAB CHEMISTRY METHOD 11/16/2024 4:40 AM [facility] Chol/HDL Ratio 4.1 0.0 - 4.4 LAB CHEMISTRY METHOD 11/16/2024 4:40 AM [facility] Blood Venous blood specimen / Unknown Venipuncture / Unknown 11/16/2024 3:55 AM EST 11/16/2024 3:59 AM EST Nan BOLANOS LAB BLOOD ORDERABLES Fi nal Result [facility] [address] [place] [address], * (ABNORMAL) Basic metabolic panel (11/16/2024 3:55 AM EST) Sodium 138 133 - 145 mmol/L LAB CHEMISTRY METHOD 11/16/2024 4:39 AM [facility] Potassium 3.7 3.5 - 5.5 mmol/L LAB CHEMISTRY METHOD 11/16/2024 4:39 AM [facility] Chloride 107 96 - 110 mmol/L LAB CHEMISTRY METHOD 11/16/2024 4:39 AM [facility] CO2 24 21 - 32 mmol/L LAB CHEMISTRY METHOD 11/16/2024 4:39 AM [facility] Anion Gap 7 3 - 11 LAB CHEMISTRY METHOD 11/16/2024 4:39 AM [facility] Glucose 157(H) 70 - 100 mg/dL LAB CHEMISTRY METHOD 11/16/2024 4:39 AM [facility] BUN 23 5 - 25 mg/dL LAB CHEMISTRY METHOD 11/16/2024 4:39 AM [facility] Creatinine 1.58(H) 0.70 - 1.30 mg/dL LAB CHEMISTRY METHOD 11/16/2024 4:39 AM [facility] eGFR 49(L) >=60 mL/min/1. 73m2 LAB CHEMISTRY METHOD 11/16/2024 4:39 AM [facility] Comment:Calculation based on the Chronic Kidney Disease Epidemiology Collaboration (CKD-EPI) equation refit without adjustment for race. BUN/Creatinine Ratio 14.6 LAB CHEMISTRY METHOD 11/16/2024 4:39 AM [facility] Calcium 8.2(L) 8.5 - 10.5 mg/dL LAB CHEMISTRY METHOD 11/16/2024 4:39 AM [facility] Blood Venous blood specimen / Unknown Venipuncture / Unknown 11/16/2024 3:55 AM EST 11/16/2024 3:59 AM EST us Antonio Doss MD LAB BLOOD ORDERABLES Final Res ult [facility] [address] [place] [address], * (ABNORMAL) Hemoglobin A1c (11/15/2024 1:54 PM EST) Hemoglobin A1C 13.5(H) <6.5 % LAB CHEMISTRY METHOD 11/16/2024 1:32 PM EST [facility] Mean Bld Glu Estim. 341 mg/dL LAB CHEMISTRY METHOD 11/16/2024 1:32 PM EST [facility]) [facility] Blood Venous blood specimen / Unknown Venipuncture / Unknown 11/15/2024 1:54 PM EST 11/15/2024 2:08 PM EST us Nan BOLANOS LAB BLOOD ORDERABLES Fi nal Result [facility] ([facility]) [facility] [address] [place] [address], [place] [phone] from Last 3 Months or Most Recently Relevant to Health Maintenance Insurance [facility] Member Subscriber Plan / Payer (Ef fective 2025-Present) Name:Yanick Power Relation to Subscriber:Self Name:Yanick Arita Payer ID:[id number] Group ID:[id number] Type:Not on file Address: [place] [address] [address] [phone] Advance Directives * Full Code - Default [...] currently active code status orders. Care Teams Mining And Quarrying Machinery Repairer Relationship Specialty Start Date End Date Cassandra Moses PA [address] [place] [address] PCP - General 07/12/22
--- OUTSIDE RECORDS SUMMARY | 2025-06-04 13:59 | XMS_ITS | Clinical Summary ---
Author Organization [facility] Address [address] [place] [address] Care Team Providers Care Young Adult Librarian Name Role Phone Cassandra Moses PA-C Primary Care Provider [phone] Source Comments PLEASE NOTE, if this patient [...] mL 04/16/20 23 Active MISCELLANEOUS MEDICAL SUPPLY [facility] May have home care services as needed 1 Each 07/24/20 23 Active MISCELLANEOUS MEDICAL SUPPLY MISCIndications: Left leg pain,Left foot drop by miscellaneous route daily. Left foot AFO. Please sent to [facility]. Fax - [phone]. BMI 32.56 1 Each 11/29/19 24 Active MISCELLANEOUS MEDICAL SUPPLY MISCIndications: Weakness by miscellaneous route daily. Rolator 4 wheels with seat walker. BMI 32.56. Lifetime need. 1 Each 11/29/19 24 Active fluticasone (FLONASE) 50 mcg/actuation nasal spray USE 1 SPRAY IN EACH NOSTRIL TWO TIMES A DAY Prescribed By: SHASTA PARKINSON MD 11/05/19 24 Active atorvastatin (LIPITOR) 80 mg tabletIndication s:Type 2 diabetes mellitus without complication, with long-term current use of insulin ([facility])Shayla (primary) hypertension Take 1 Tablet by mouth [...] 01/29/20 24 Active gabapentin (NEURONTIN) 100 mg capsuleIndicatio ns:Left leg pain Take 1 Capsule by mouth [...] Tablet 03/13/20 24 Active MISCELLANEOUS MEDICAL SUPPLY MISCIndications: Type 2 diabetes mellitus without complication, with long-term current use of insulin ([facility]),Shayla thomas (primary) hypertension,At risk for falling,Diabetic feet ([facility]) by miscellaneous route daily. Diabetic shoes size 11.5 for daily use. BMI 32.61. Life time need it. 1 Each 03/13/20 24 Active ARIPiprazole (ABILIFY) 2 mg tabletIndication s:Mild cognitive impairment TOME 1 TABLETA POR VIA ORAL TODOS [place] 90 Tablet 05/28/20 24 Active clotrimazole (LOTRIMIN) 1 % cream Authorized by: ONOFRE DUNLAP 06/06/20 24 Active MISCELLANEOUS MEDICAL SUPPLY MISCIndications: Type 2 diabetes mellitus without complication, with long-term current use of insulin ([facility]),Essenti al (primary) hypertension,At risk for falling,Diabetic feet ([facility]) by miscellaneous route daily. Diabetic shoes size 11.5 for daily use. Diagnosis diabetes, obesity. Length of need 99 months 1 Each 10/27/20 Active pen needle, diabetic 31 gauge x 5/16 ndleIndications: Type 2 diabetes mellitus with hyperglycemia, with long-term current use of insulin ([facility]) To inject insulin 4 times daily. 100 Each 11/06/19 Active blood-glucose sensor (FREESTYLE MAIDA 3 PLUS SENSOR) deviIndications: Type 2 diabetes mellitus with hyperglycemia, with long-term current use of insulin ([facility]) Place 1 sensor to back of upper arm every 15 days. Use to monitor blood sugar continuously (Freestyle Maida 3 Plus) 2 Each 11/20/19 Active blood-glucose meter,continuous (FREESTYLE MAIDA 3 READER) miscIndications: Type 2 diabetes mellitus with hyperglycemia, with long-term current use of insulin ([facility]) 1 Units by miscellaneous route daily. To check BS daily. 1 Each 11/20/19 25 Active blood sugar diagnostic stripsIndication s:Type 2 diabetes mellitus with hyperglycemia, with long-term current use of insulin ([facility]) 1 Each 4 (four) times daily Precision Justin test Strips to check sugar 4 times a day. Pt wants home delivery of his sensor/test strips. 100 Each 11/20/19 25 Active insulin lispro 100 unit/mL injection penIndications:U ncontrolled type 2 diabetes mellitus with hypoglycemia without coma ([facility]) SLIDING SCALE 3 times a day 100-149: 15 units, 150-199: 18 units, 200-249: 21 units, 250-299: 24 units, 300-349: 27 units, 350-399: 30 units. 15 mL 12/12/19 25 Active tamsulosin (FLOMAX) 0.4 mg 24 hr capsuleIndicatio ns:Difficulty in voiding TOME LLOYD CAPSULA TODOS [place] PO[place] 90 Capsule 1 12/22/19 25 Active TRESIBA FLEXTOUCH U-100 100 unit/mL (3 mL)Indications:U ncontrolled type 2 diabetes mellitus with hypoglycemia without coma ([facility]) INJECT 32 UNITS INTO THE SKIN EVERY MORNINGStrength: 100 unit/mL (3 mL) 15 mL 1 01/30/20 25 Active ENTRESTO 97-103 mg tabIndications:C ongestive heart failure, unspecified HF chronicity, unspecified heart failure type ([facility]) TOME 1 TABLETA POR VIA ORAL DOS VECES AL ADELSO 180 Tablet 1 02/02/20 25 Active torsemide (DEMADEX) 20 mg tabletIndication s:Congestive heart failure, unspecified HF chronicity, unspecified heart failure type ([facility]) TAKE 2 TABLETS POR VIA ORAL DOS VECES AL ADELSO 360 Tablet 1 04/07/20 25 Active pantoprazole (PROTONIX) 40 mg EC tabletIndication s:Gastroesophage al reflux disease without esophagitis TOME 1 TABLETA POR VIA ORAL TODOS [place] 90 Tablet 1 04/07/20 25 Active carvediloL (COREG) 12.5 mg tabletIndication s:Congestive heart failure, unspecified HF chronicity, unspecified heart failure type ([facility]),Hyperte nsion, essential TOME LLOYD TABLETA 2 VECES AL ADELSO CON LAS COMIDAS 180 Tablet 1 04/07/20 25 Active levothyroxine 50 mcg tabletIndication s:Hypothyroidism , unspecified type TOME 1 TABLETA POR VIA ORAL TODOS [place] PO[place]. 84 Tablet 2 04/14/20 25 Active dulaglutide (TRULICITY) 1.5 mg/0.5 mL pen injectorIndicati ons:Type 2 diabetes mellitus with hyperglycemia, with long-term current use of insulin ([facility]) Inject 1.5 mg into the skin once a week. 2 mL 2 05/03/20 25 Active Active Problems Problem Noted Date Diagnosed Date Class 1 obesity due to exces s calories with serious comorbidity and body mass index (BMI) of 30.0 to 30.9 in adult 12/23/2023 PTSD (post-traumatic stress disorder) 07/05/2022 Generalized anxiety disorder 05/09/2022 Constipation 04/18/2022 Exacerbation of asthma ([facility]) 04/18/2022 Gout 04/18/2022 Hypothyroidism 04/18/2022 Type 2 diabetes mellitus wit h hyperglycemia, with long-term current use of insulin ([facility]) 04/18/2022 Congestive heart failure ([facility]) 022 Elevated prostate specific antigen (PSA) 022 Overview (06/02/2025): 01/25/2025 - [facility] - Dx: Elevated PSA - F/u with MRI of prostate - TRUSP bx w f/u Pneumonia due to coronavirus disease 2019 (CODE) 02/04/2022 Acute kidney failure, unspecified ([facility]) 01/31/2022 Essential (primary) hypertension 01/31/2022 Stage 3 chronic kidney disease ([facility]) 0 01/31/2022 Encounters Date Type Department Care Team Description 04/29/2025 3:40 PM EDT Interim Notes [address] [address] 04/29/2025 3:20 PM EDT Office Visit [address] [address] Nikolai Stephenson, PharmD Jesenia Sampson 03/14/2025 Interim Notes [address] [address] Cassandra Moses PA-C 03/12/2025 Results Follow-Up [facility] [address] [place] [phone] Nikolai Stephenson, PharmD 03/11/2025 11:00 AM EDT Office Visit [address] [address] Nikolai Stephenson, PharmD Kelley Hernandez 03/04/2025 Interim Notes [address] [address] Herman Corrigan [place] from Last 3 Months [...] feel these kinds of stress these days? 1 12/21/2024 Physical Activity Answer Date Recorded Physical Activity 0 03/01/2022 Food Insecurity Answer Date Recorded Hard to pay for: Food 1 12/21/2024 Transportation Needs Answer Date Record ed Hard to pay for: Transportation 12/21/2024 Housing Stability Answer Date Recorded Hard [...] Team (Late st Contact Info) Description 06/09/2025 8:00 AM EDT Interim Notes [facility] [address] [place] [address] 06/09/2025 9:00 AM EDT Office Visit [address] [address] Didi Stein PA-C [address] [place] [address] 06/09/2025 9:40 AM EDT Interim Notes [facility] [address] [place] [phone] 06/17/2025 2:20 PM EDT Interim Notes [address] [address] 06/17/2025 3:00 PM EDT Office Visit [address] [address] Nikolai Stephenson PharmD [address] [place] [address] 06/17/2025 3:20 PM EDT Interim Notes [address] [address] Health Maintenance Due Date Last Done Comments Anxiety Screening 1960 Dental FMX/Pano 1960 Medicare Annual Wellness Visit 02/22/1978 Imm-DTaP/Tdap/Td (1 - Tdap) 02/22/1979 Imm-Pneumococcal 50+ (1 of 2 - PCV) 02/22/1979 CT Colonography 02/22/2005 Colonoscopy 02/22/2005 Colorectal Cancer Screening 02/22/2005 FIT/gFOBT 02/22/2005 Fecal DNA 02/22/2005 Flexible Sigmoidoscopy 02/22/2005 Imm-Zoster, Recombinant (1 of 2) 02/22/2010 [id number] ( - season) 2024 023, 02/15/2022 Retinopathy Screening 11/29/2024 [...] hyperglycemia, with long-term current use of insulin ([facility]) HEALTH HISTORY SCANNED DOCUMENT 03/31/2025 3:00 AM EDT MICROALBUMIN/CREATINI NE RATIO, URINE, RANDOM Routine 03/11/2025 11:41 AM EDT Type 2 diabetes mellitus with hyperglycemia, with long-term current use of insulin ([facility]) HEMOGLOBIN GLYCOSYLATED A1C Routine 03/11/2025 11:17 AM EDT Type 2 diabetes mellitus with hyperglycemia, with long-term current use of insulin ([facility]) GLUCOSE, BLOOD BY GLUCOSE MONITORING DEVICE (CLIA WAIVED)POCT Routine 03/11/2025 10:46 AM EDT Type 2 diabetes mellitus with hyperglycemia, with long-term current use of insulin ([facility]) TSH W/RFLX FREE T4 Routine 12/21/2024 3: [...] 2 diabetes mellitus with hypoglycemia without coma ([facility]) REFERRAL TO DIABETIC RETINAL EXAM Routine 11/29/2023 3:00 AM EST Uncontrolled type 2 diabetes mellitus with hypoglycemia without coma ([facility]) HIV 1/2 AG & AB W/RFLX (4TH [...] included. GLUCOSE 128(A) 70 - 100 mg/dL [facility] Capillary Blood Blood / Unknown 3:30 PM EDT us Nikolai Stephenson PharmD LAB - BLOOD DRAW Final Resu lt [facility] * HEALTH HISTORY SCANNED DOCUMENT (03/31/2025 3:00 AM EDT) 03/31/2025 3:00 AM EDT [facility] Provider Default SCAN OTHER ORDERS Final Re sult * MICROALBUMIN/CREATININE RATIO, URINE, RANDOM (03/11/2025 11:41 AM EDT) CREATININE, RANDOM URINE 48 20 - 320 mg/dL [facility] MICROALBUMIN 0.8 mg/dL [facility] Comment: Reference Range Not established MICROALBUMIN/CREA TININE RATIO, RANDOM URINE 17 <30 mg/g creat [facility] Comment: The ADA defines abnormalities in albumin [...] AM EDT 03/11/2025 11:41 AM EDT Narrative [facility] - 03/12/2025 8:07 PM EDT SPLIT 03/11/2025 FROM [id number] Octavio Guerrier PharmD LAB URINE AMBULATORY Viviana l Result [employer] [address] [place] [address], [facility] [address] [place] [phone] * (ABNORMAL) HEMOGLOBIN GLYCOSYLATED A1C (03/11/2025 11:17 AM EDT) HEMOGLOBIN A1C 8.8(H) <5.7 % [facility] Comment: For someone without known diabetes, a [...] AM EDT 03/11/2025 11:17 AM EDT Narrative [facility] - 03/12/2025 3:48 AM EDT PATIENT UNABLE TO VOID; ADVISED TO RETURN FOR COLLECTION. Octavio Guerrier PharmD LAB - BLOOD DRAW Final Re sult Performing Organization Address [facility]/ZIP Co de Phone Number [employer] [address] [address], [employer] [address] [address] * TSH W/RFLX FREE T4 (12/21/2024 3:11 PM EST) TSH W/REFLEX TO FT4 0.68 0.40 - 4.50 mIU/L [facility] Blood Blood / Unknown 12/21/2024 3 :11 PM EST 12/21/2024 3:11 PM EST Cassandra Moses PA-C LAB - BLOOD DRAW Edited Resu lt - Final Performing Organization Address [facility] Co de Phone Number [employer] [address] [address], [employer] [address] [address] * (ABNORMAL) COMPREHENSIVE METABOLIC PANEL (12/21/2024 3:11 PM EST) GLUCOSE 199(H) 65 - 99 mg/dL [facility] Comment: Fasting reference interval For someone without known diabetes, a glucose value >125 mg/dL indicates that they may have diabetes and this should be confirmed with a follow-up test. UREA NITROGEN (BUN) 27(H) 7 - 25 mg/dL [facility] CREATININE (blood) 1.95(H) 0.70 - 1.35 mg/dL [facility] EGFR 38(L) > OR = 60 mL/min/1. 73m2 [facility] BUN/CREATININE RATIO 14 6 - 22 (calc) [facility] SODIUM 136 135 - 146 mmol/L [facility] POTASSIUM 4.4 3.5 - 5.3 mmol/L [facility] CHLORIDE 95(L) 98 - 110 mmol/L [facility] CARBON DIOXIDE 30 20 - 32 mmol/L [facility] CALCIUM 9.4 8.6 - 10.3 mg/dL [facility] PROTEIN, TOTAL 6.8 6.1 - 8.1 g/dL [facility] ALBUMIN 4.1 3.6 - 5.1 g/dL [facility] GLOBULIN 2.7 1.9 - 3.7 g/dL (calc) [facility] ALBUMIN/GLOBULI N RATIO 1.5 1.0 - 2.5 (calc) [facility] BILIRUBIN, TOTAL 0.4 0.2 - 1.2 mg/dL [facility] ALKALINE PHOSPHATASE 160(H) 35 - 144 U/L [facility] AST 15 10 - 35 U/L [facility] ALT 19 9 - 46 U/L [facility] Blood Blood / Unknown 12/21/2024 3 :11 PM EST 12/21/2024 3:11 PM EST Result [facility] Cassandra Moses PA-C LAB - BLOOD DRAW Final Resul t [employer] [address] [address], [employer] [address] [address] * REFERRAL TO PODIATRY (01/14/2024 3:00 AM EDT) 01/14/2024 3:00 AM EDT Cassandra Moses PA-C REFERRAL Final Result * REFERRAL FOR DIABETIC RETINAL EXAM (11/29/2023 3:00 AM EST) 11/29/2023 3:00 AM EST Cassandra Moses PA-C REFERRAL Final Result * Hep C Antibody with Reflex HCV RNA (04/17/2022 9:55 AM EDT) HEPATITIS C ANTIBODY NON-REACT ANTHONY NON-REACT ANTHONY [facility] SIGNAL TO CUT-OFF 0.11 <1.00 [facility] Comment: HCV antibody was non-reactive. There is no laboratory evidence of HCV infection. In most cases, no further action is required. However, if recent HCV exposure is suspected, a test for HCV RNA (test code 72425) is suggested. For additional information please refer to http://DeliveryChef.in.zhiwo/faq/OUO10w1 (This link is being provided for informational/ educational purposes only.) Blood Blood / Unknown 04/17/2022 9 :55 AM EDT 04/17/2022 9:56 AM EDT Cassandra HANNAH LAB - BLOOD DRAW Edited Resu lt - Final [facility] [address] [facility] [address] [place] [address], [facility] [address] [address] * HIV Ag & Ab with Reflex Western Blot (04/17/2022 9:55 AM EDT) Pathologist [facility] HIV AG/AB, 4TH GEN NON-REAC TIVE NON-REAC TIVE [facility] Comment: HIV-1 antigen and HIV-1/HIV-2 antibodies were [...] purpose. For additional information please refer to http://DeliveryChef.in.Wannado.Supportie/faq/BRR417 (This link is being provided for informational/ educational purposes only.) The performance of this assay has not been clinically validated in patients less than 2 years old. Blood Blood / Unknown 04/17/2022 9 :55 AM EDT 04/17/2022 9:56 AM EDT Cassandra Moses PA-C LAB - BLOOD DRAW Final Resul t [employer] [address] [address], [facility] [address] [address] * (ABNORMAL) Lipid Panel (with Reflex Direct LDL) (04/17/2022 9:55 AM EDT) CHOLESTEROL, TOTAL 252(H) <200 mg/dL [facility] HDL CHOLESTEROL 64 > OR = 40 mg/dL [facility] TRIGLYCERIDES 313(H) <150 mg/dL [facility] Comment: If a non-fasting specimen was collected, consider repeat triglyceride testing on a fasting specimen if clinically indicated. Laverne et al. J. of Clin. Lipidol. 2015;9:129-169. LDL-CHOLESTEROL 143(H) 99 mg/dL (calc) [facility] Comment: Reference range: <100 Desirable range <100 mg/dL for primary prevention; <70 mg/dL for patients with CHD or diabetic patients with > or = 2 CHD risk factors. LDL-C is now calculated using the Gerald-Lonny calculation, which is a validated novel method providing better accuracy than the Friedewald equation in the estimation of LDL-C. Gerald HENNESSY et al. GIOVANNA. 2013;310(19): 2517-1093 (http://education.GlassUp/faq/HDJ514) CHOL/HDLC RATIO 3.9 <5.0 (calc) [facility] NON-HDL CHOLESTEROL 188(H) <130 mg/dL (calc) [facility] Comment: For patients with diabetes plus 1 major ASCVD risk factor, treating to a non-HDL-C goal of <100 mg/dL (LDL-C of <70 mg/dL) is considered a therapeutic option. Blood Blood / Unknown 04/17/2022 9 :55 AM EDT 04/17/2022 9:56 AM EDT Cassandra Moses PA-C LAB - BLOOD DRAW Final Resul t [facility] [address] [facility] [address] [place] [address], [facility] [address] [address] from Last 3 Months or Most Recently Relevant to Health Maintenance Insurance [place] MED[place] [facility] [facility] Care Teams Young Adult Librarian Relationship Specialty Start Date End Date Cassandra Moses PA-C [address] [place] [address] PCP - General Internal Medicine 12/06/21
[2025-06-04 14:06] LABS: Hematocrit 37.8 % (42.0-52.0); Hemoglobin 12.0 g/dl (14.0-18.0); Imm Gran Abs Auto 0.01 X10*3/uL (0.00-0.03); Imm Gran Pct Auto 0.1 % (0.0-0.4); Lymphocytes Absolute Auto 2.2 X10*3/uL (1.2-4.9); Mean Corpuscular HGB Conc 31.7 g/dl (31.0-36.0); Mean Corpuscular Hemoglobin 28.0 pg (27.0-33.0); Mean Corpuscular Volume 88.1 fL (80.0-98.0); NRBC Abs Auto 0.000 X10*3/uL (0.0-0.012); NRBC Pct Auto 0.0 /100WBC (0.0-0.2); Platelet Count 339 X10*3/uL (160-400); Red Blood Count 4.29 X10*6/uL (4.60-5.80); White Blood Count 7.4 X10*3/uL (4.8-10.8)
== END 2025-06-04 13:57 | disposition home or self-care (01) ==
LOC: HO.HVNA 13:56
PROVIDERS: Visit Provider Internal Medicine
DX: M86.172 Other acute osteomyelitis, left ankle and foot (principal)
CPT/HCPCS: 36415; 82550; 85025

== ENCOUNTER 2025-06-11 10:18 | Outpatient (AMB) | payer OTHER, SELFPAY ==
--- OUTSIDE RECORDS SUMMARY | 2024-04-02 06:49 | XMS_ITS | Continuity of Care Document ---
Author Organization [facility] Address [address] [address] Phone Care Team Providers Care Retail Sales Clerk Name Role Phone Shelly Horvath OT Unavailable Unavailable Advance Directives Directive Yes / No Effective Date File Name No Information Encounters Encounter Description Practice Location Reason(s) For Visit Diagnoses Date Provider [facility], [address] [address], [place], [place], [id number], [place] tel:[phone] [facility] No Information 2023 Alexandru Bravo. [address], [place], [id number], [place]. tel:[phone] Family History Family Member Type Diagnosis Age At Onset No Information Payers Payer name Insurance type Covered constitution party ID Authoriza tion(s) No Information Social History Type Description Quantity Date Captured Comments Sex Male Smoking Status No Information Chief Complaint And Reason For Visit No Information History Of Present Illness Encounter Date Complaint History Of Prese nt Illness No Information Instructions Date Instruction Additional Infor mation No Information Assessments Type Assessment Date No Information
--- OUTSIDE RECORDS SUMMARY | 2025-06-11 10:28 | XMS_ITS | Clinical Summary ---
Author Organization [facility] Address [address] [place] [address] Care Team Providers Care Poultry Offal Icer Name Role Phone Cassandra Moses PA-C Primary Care Provider Source Comments PLEASE NOTE, if this patient is a minor, it may be UNLAWFUL to discuss sensitive information that is contained in these records (such as FAMILY PLANNING, MENTAL HEALTH or SUBSTANCE ABUSE) with the minor patient's parent or other person without the patient's specific authorization.[facility] Allergies Active Allergy Reactions Criticality Noted Date Comments Beans 01/29/2025 Medications ONETOUCH VERIO REFLECT METER monitoring kit USE [...] complication, with long-term current use of insulin ([facility]),Essent ial (primary) hypertension,At risk for falling,Diabeti c feet ([facility]) by miscellaneous route daily. Diabetic [...] complication, with long-term current use of insulin ([facility]),Essent ial (primary) hypertension,At risk for falling,Diabeti c feet ([facility]) by miscellaneous route daily. Diabetic shoes size 11.5 for daily use. Diagnosis diabetes, obesity. Length of need 99 months 1 Each 10/27/20 24 Active pen needle, diabetic 31 gauge x 5/16 ndleIndications :Type 2 diabetes mellitus with hyperglycemia, with long-term current use of insulin ([facility]) To inject insulin 4 times daily. 100 Each 11/06/19 25 Active blood-glucose sensor (FREESTYLE MAIDA 3 PLUS SENSOR) deviIndications :Type 2 diabetes mellitus with hyperglycemia, with long-term current use of insulin ([facility]) Place 1 sensor to back of upper arm every 15 days. Use to monitor blood sugar continuously (Freestyle Maida 3 Plus) 2 Each 11/20/19 25 Active blood-glucose meter,continuou s (FREESTYLE MAIDA 3 READER) miscIndications :Type 2 diabetes mellitus with hyperglycemia, with long-term current use of insulin ([facility]) 1 Units by miscellaneous route daily. To check BS daily. 1 Each 11/20/19 25 Active blood sugar diagnostic stripsIndicatio ns:Type 2 diabetes mellitus with hyperglycemia, with long-term current use of insulin ([facility]) 1 Each 4 (four) times daily Precision Justin test Strips to check sugar 4 times a day. Pt wants home delivery of his sensor/test strips. 100 Each 5 11/20/19 25 Active insulin lispro 100 unit/mL injection penIndications: Uncontrolled type 2 diabetes mellitus with hypoglycemia without coma (CMS & HHS-HCC) SLIDING SCALE 3 times a day 100-149: [...] 2 diabetes mellitus with hypoglycemia without coma (CMS & HHS-HCC) INJECT 32 UNITS INTO THE SKIN EVERY MORNINGStrength: 100 unit/mL (3 mL) 15 mL 1 01/30/20 25 Active ENTRESTO 97-103 mg tabIndications: Congestive heart failure, unspecified HF chronicity, unspecified heart failure type (CMS & HHS-HCC) TOME 1 TABLETA POR VIA ORAL DOS VECES AL ADELSO 180 Tablet 1 02/02/20 25 Active torsemide (DEMADEX) 20 mg tabletIndicatio ns:Congestive heart failure, unspecified HF chronicity, unspecified heart failure type (CMS & HHS-HCC) TAKE 2 TABLETS POR VIA ORAL DOS VECES AL ADELSO 360 Tablet 1 04/07/20 25 Active pantoprazole (PROTONIX) 40 mg EC tabletIndicatio ns:Gastroesopha geal reflux disease without esophagitis TOME 1 TABLETA POR VIA ORAL TODOS [place] PO[place] 90 Tablet 1 04/07/20 25 Active carvediloL (COREG) 12.5 mg tabletIndicatio ns:Congestive heart failure, unspecified HF chronicity, unspecified heart failure type (CMS & HHS-HCC),Hypert ension, essential TOME LLOYD TABLETA 2 VECES AL ADELSO CON LAS COMIDAS 180 Tablet 1 04/07/20 25 Active levothyroxine 50 mcg tabletIndicatio ns:Hypothyroidi sm, unspecified type TOME 1 TABLETA POR VIA ORAL TODOS [place] PO[place]. 84 Tablet 2 04/14/20 25 Active dulaglutide (TRULICITY) 1.5 mg/0.5 mL pen injectorIndicat ions:Type 2 diabetes mellitus with hyperglycemia, with long-term current use of insulin ([facility]) Inject 1.5 mg into the skin once a week. 2 mL 2 05/03/20 25 Active atorvastatin (LIPITOR) 80 mg tabletIndicatio ns:Essential (primary) hypertension Take 1 Tablet by mouth nightly at bedtime. 90 Tablet 1 06/09/20 25 Active albuterol HFA 90 mcg/actuation inhaler Inhale 2 Puffs into the lungs every 4 (four) hours as needed for shortness of breath or wheezing 54 Unspecified 2 04/16/20 23 025 Disconti nued(Out dated-Re moved from Med List (E-Cance l Not Sent)) albuterol (PROVENTIL) 2.5 mg /3 mL (0.083 %) nebulizer solution Take 3 mL by nebulization every 6 (six) hours as needed for wheezing 75 mL 04/16/20 23 025 Disconti nued(Out dated-Re moved from Med List (E-Cance l Not Sent)) MISCELLANEOUS MEDICAL SUPPLY MIS May have home care services as needed 1 Each 07/24/20 23 025 Disconti nued(Out dated-Re moved from Med List (E-Cance l Not Sent)) MISCELLANEOUS MEDICAL SUPPLY MISCIndications :Left leg pain,Left foot drop by miscellaneous route daily. Left foot AFO. Please sent to [facility]. Fax - [phone]. BMI 32.56 1 Each 11/29/19 24 025 Disconti nued(Out dated-Re moved from Med List (E-Cance l Not Sent)) MISCELLANEOUS MEDICAL SUPPLY MISCIndications :Weakness by miscellaneous route daily. Rolator 4 wheels with seat walker. BMI 32.56. Lifetime need. 1 Each 11/29/19 24 025 Disconti nued(Out dated-Re moved from Med List (E-Cance l Not Sent)) fluticasone (FLONASE) 50 mcg/actuation nasal spray USE 1 SPRAY IN EACH NOSTRIL TWO TIMES A DAY Prescribed By: IGGY BEDOLLA,SHASTA 11/05/19 24 025 Disconti nued(Out dated-Re moved from Med List (E-Cance l Not Sent)) atorvastatin (LIPITOR) 80 mg tabletIndicatio ns:Type 2 diabetes mellitus without complication, with long-term current use of insulin ([facility]),Essent ial (primary) hypertension Take 1 Tablet by mouth nightly at bedtime 90 Tablet 1 12/25/19 24 025 Disconti nued(Reo rder (E-Cance l Not Sent)) Active Problems Problem Noted Date Diagnosed Date Class 1 obesity due to exces s calories with serious comorbidity and body mass index (BMI) of 30.0 to 30.9 in adult 12/23/2023 PTSD (post-traumatic stress disorder) 07/05/2022 Generalized anxiety disorder 05/09/2022 Constipation 04/18/2022 Exacerbation of asthma ([facility]) 04/18/2022 Gout 04/18/2022 Hypothyroidism 04/18/2022 Type 2 diabetes mellitus wit h hyperglycemia, with long-term current use of insulin ([facility]) 04/18/2022 Congestive heart failure ([facility]) 022 Elevated prostate specific antigen (PSA) 022 Overview (06/02/2025): 01/25/2025 - [facility] - Dx: Elevated PSA - F/u with MRI of prostate - TRUSP bx w f/u Pneumonia due to coronavirus disease 2019 (CODE) 02/04/2022 Acute kidney failure, unspecified ([facility] V24) 01/31/2022 Essential (primary) hypertension 01/31/2022 Stage 3 chronic kidney disease ([facility]) 0 01/31/2022 Encounters Date Type Department Care Team Description 06/09/2025 9:00 AM EDT Office Visit [address] [phone] Didi Stein PA-C 06/09/2025 Interim Notes [address] [phone] Abena Martinez MA 04/29/2025 3:40 PM EDT Interim Notes [id number] [place] [phone] 04/29/2025 3:20 PM EDT Office Visit [address] [phone] Nikolai Stephenson, PharmD Jesenia Sampson 03/14/2025 Interim Notes [address] [phone] Cassandra Moses PA-C 03/12/2025 Results Follow-Up [facility] [address] [place] [phone] Nikolai Stephenson PharmD 03/11/2025 11:00 AM EDT Office Visit [address] [phone] Nikolai Stephenson, PharmD Kelley Hernandez from Last 3 Months Immunizations Immunization Administration Dates Next Due Influenza (FLUBLOK),recombin ant,injectable,preservative Free 07/21/2024 PNEUMOCOCCAL CONJUGATE PCV 20 (Prevnar 20) 06/09 Social History Tobacco Use Types Packs/Day Years Used Date Smoking Tobacco: Former Cigarettes Passive Smoke Exposure: Never Smokeless Tobacco: Never Tobacco Cessation:Counseling Given: Yes Alcohol Use Standard Drinks/Week Comments Never 0 [...] Date Recorded Hard to pay for: Food 12/21/2024 Transportation Needs Answer Date Record ed [...] Sign Reading Time Taken Comments Blood Pressure 138/88 06/09/2025 9:01 AM EDT Pulse 78 06/09/2025 9:01 AM EDT Temperature 36.5 C (97.7 F) 06/09/2025 9:01 AM EDT Respiratory Rate 16 06/09/2025 9:01 AM EDT Oxygen Saturation 98% 06/09/2025 9:01 AM EDT Inhaled Oxygen Concentration - - Weight 112.9 kg (249 lb) 06/09/2025 9:01 AM EDT Height 188 cm (6' 2.02 ) 06/09/2025 9:01 AM EDT Body Mass Index 31.96 06/09/2025 9:01 AM EDT Plan of Treatment Upcoming Encounters Date Type Department Care Team (Late st Contact Info) Description 06/17/2025 2:20 PM EDT Interim Notes [address] [phone] 06/17/2025 3:00 PM EDT Office Visit [address] [phone] Nikolai Stephenson, PharmD [address] [place] [address] 06/17/2025 3:20 PM EDT Interim Notes [address] [phone] 07/26/2025 10:20 AM EDT Telemedicine Visit [address] [phone] Didi Stein PA-C [address] [place] [phone] Health Maintenance Due Date Last Done Comments Anxiety Screening 1960 Dental FMX/Pano 1960 Medicare Annual Wellness Visit 02/22/1978 Imm-DTaP/Tdap/Td (1 - Tdap) 02/22/1979 CT Colonography 02/22/2005 Colonoscopy 02/22/2005 Colorectal Cancer Screening 02/22/2005 FIT/gFOBT 02/22/2005 Fecal DNA 02/22/2005 Flexible Sigmoidoscopy 02/22/2005 Imm-Zoster, Recombinant (1 of 2) 02/22/2010 Retinopathy Screening 11/29/2024 11/29/2023 Abdominal Aortic Aneurysm Screening 02/22/2025 Falls Prevention 02/22/2025 Dental Prophy 03/23/2025 09/21/2024 Imm-Influenza (#1) 2025 07/21/2024 Hemoglobin A1c 09/09/2025 06/09/2025, 02/25, 11/15/2024, Additional history exists [id number] ( season) 2025 01/21/2023, 02/15/2022 Postponed from 06/28/2024 (Patient postponement) Dental Examination 09/23/2025 09/21/2024 Dental Perio Charting 09/23/2025 09/21/2024 Diabetes Foot Exam 06/09/2026 06/09/2025, 0 01/14/2024, 06/06/2023 Lipid Screening 06/09/2026 06/09/2025, 10/29, 04/17/2022 Serum Creatinine 06/09/2026 06/09/2025, , 11/16/2024, Additional history exists TSH Monitoring 06/09/2026 06/09/2025, 11/29, 04/17/2022 Tobacco Screening 06/09/2026 06/09/2025, 12/23/2023 Urine Albumin Creatinine Ratio Screening 06/09/2026 06/09/2025, 03/11/2025, 12/23/2023 HIV Screening Completed 04/17/2022 Hepatitis C Screening Completed 04/17/2022 Alcohol and Drug Screen Completed 11/06/19, 11/29/2023, 04/16/2023, Additional history exists Depression Annual Screen Completed 12/21/2024 Imm-Pneumococcal 50+ Completed 06/09/2025 Procedures Procedure Name Priority Date/Time Associated Diagnosis Comments RFLX - REFLEXIVE URINE CULTURE Routine 06/09/2025 9:54 AM EDT ASSAY OF PROSTATE SPECIFIC ANTIGEN TOTAL Routine 06/09/2025 9:54 AM EDT Routine general medical examination at a health care facility Class 1 obesity due to excess calories with serious comorbidity and body mass index (BMI) of 30.0 to 30.9 in adult Type 2 diabetes mellitus with hyperglycemia, with long-term current use of insulin ([facility]) Congestive heart failure, unspecified HF chronicity, unspecified heart failure type ([facility]) Hypothyroidism, unspecified type Stage 3 chronic kidney disease, unspecified whether stage 3a or 3b CKD ([facility]) Elevated prostate specific antigen (PSA) Mild vitamin D deficiency VITAMIN B12 & FOLATE Routine 06/09/2025 9:54 AM EDT Routine general medical [facility] a [facility] Class 1 obesity due to excess calories with serious comorbidity and body mass index (BMI) of 30.0 to 30.9 in adult Type 2 diabetes mellitus with hyperglycemia, with long-term current use of insulin ([facility]) Congestive heart failure, unspecified HF chronicity, unspecified heart failure type ([facility]) Hypothyroidism, unspecified type Stage 3 chronic kidney disease, unspecified whether stage 3a or 3b CKD ([facility]) Elevated prostate specific antigen (PSA) Mild vitamin D deficiency ASSAY OF MAGNESIUM Routine 06/09/2025 9: 54 AM EDT Routine general medical examination at a [facility] care facility Class 1 obesity due to excess calories with serious comorbidity and body mass index (BMI) of 30.0 to 30.9 in adult Type 2 diabetes mellitus with hyperglycemia, with long-term current use of insulin ([facility]) Congestive heart failure, unspecified HF chronicity, unspecified heart failure type ([facility]) Hypothyroidism, unspecified type Stage 3 chronic kidney disease, unspecified whether stage 3a or 3b CKD ([facility]) Elevated prostate specific antigen (PSA) Mild vitamin D deficiency 25 HYDROXY INCLUDES FRACTIONS IF PERFORMED Routine 06/09/2025 9:54 AM EDT Routine general medical examination at a [facility] Class 1 obesity due to excess calories with serious comorbidity and body mass index (BMI) of 30.0 to 30.9 in adult Type 2 diabetes mellitus with hyperglycemia, with long-term current use of insulin ([facility]) Congestive heart failure, unspecified HF chronicity, unspecified heart failure type ([facility]) Hypothyroidism, unspecified type Stage 3 chronic kidney disease, unspecified whether stage 3a or 3b CKD ([facility]) Elevated prostate specific antigen (PSA) Mild vitamin D deficiency BLOOD COUNT COMPLETE AUTO&AUTO DIFRNTL WBC Routine 06/09/2025 9:54 AM EDT Routine general medical examination at a [facility] Class 1 obesity due to excess calories with serious comorbidity and body mass index (BMI) of 30.0 to 30.9 in adult Type 2 diabetes mellitus with hyperglycemia, with long-term current use of insulin ([facility]) Congestive heart failure, unspecified HF chronicity, unspecified heart failure type ([facility]) Hypothyroidism, unspecified type Stage 3 chronic kidney disease, unspecified whether stage 3a or 3b CKD ([facility]) Elevated prostate specific antigen (PSA) Mild vitamin D deficiency COMPREHENSIVE METABOLIC PANEL Routine 06/09/2025 9:54 AM EDT Routine general medical examination at a [facility] Class 1 obesity due to excess calories with serious comorbidity and body mass index (BMI) of 30.0 to 30.9 in adult Type 2 diabetes mellitus with hyperglycemia, with long-term current use of insulin ([facility]) Congestive heart failure, unspecified HF chronicity, unspecified heart failure type ([facility]) Hypothyroidism, unspecified type Stage 3 chronic kidney disease, unspecified whether stage 3a or 3b CKD ([facility]) Elevated prostate specific antigen (PSA) Mild vitamin D deficiency LIPID PANEL Routine 06/09/2025 9:54 AM EDT Routine general medical examination at a health care facility Class 1 obesity due to excess calories with serious comorbidity and body mass index (BMI) of 30.0 to 30.9 in adult Type 2 diabetes mellitus with hyperglycemia, with long-term current use of insulin ([facility]) Congestive heart failure, unspecified HF chronicity, unspecified heart failure type ([facility]) Hypothyroidism, unspecified type Stage 3 chronic kidney disease, unspecified whether stage 3a or 3b CKD ([facility]) Elevated prostate specific antigen (PSA) Mild vitamin D deficiency TSH W/RFLX FREE T4 Routine 06/09/2025 9: 54 AM EDT [facility] Class 1 obesity due to excess calories with serious comorbidity and body mass index (BMI) of 30.0 to 30.9 in adult Type 2 diabetes mellitus with hyperglycemia, with long-term current use of insulin ([facility]) Congestive heart failure, unspecified HF chronicity, unspecified heart failure type ([facility]) Hypothyroidism, unspecified type Stage 3 chronic kidney disease, unspecified whether stage 3a or 3b CKD ([facility]) Elevated prostate specific antigen (PSA) Mild vitamin D deficiency HEMOGLOBIN GLYCOSYLATED A1C Routine 06/09/2025 9:54 AM EDT Routine general medical [facility] Class 1 obesity due to excess calories with serious comorbidity and body mass index (BMI) of 30.0 to 30.9 in adult Type 2 diabetes mellitus with hyperglycemia, with long-term current use of insulin ([facility]) Congestive heart failure, unspecified HF chronicity, unspecified heart failure type ([facility]) Hypothyroidism, unspecified type Stage 3 chronic kidney disease, unspecified whether stage 3a or 3b CKD ([facility]) Elevated prostate specific antigen (PSA) Mild vitamin D deficiency URINALYSIS, COMPLETE W/REFLEX TO CULTURE Routine 06/09/2025 9:54 AM EDT Routine general medical examination at a [facility] Class 1 obesity due to excess calories with serious comorbidity and body mass index (BMI) of 30.0 to 30.9 in adult Type 2 diabetes mellitus with hyperglycemia, with long-term current use of insulin ([facility]) Congestive heart failure, unspecified HF chronicity, unspecified heart failure type ([facility]) Hypothyroidism, unspecified type Stage 3 chronic kidney disease, unspecified whether stage 3a or 3b CKD ([facility]) Elevated prostate specific antigen (PSA) Mild vitamin D deficiency MICROALBUMIN/CREATINI NE RATIO, URINE, RANDOM Routine 06/09/2025 9:54 AM EDT Routine general medical examination at a [facility] care facility Class 1 obesity due to excess calories with serious comorbidity and body mass index (BMI) of 30.0 to 30.9 in adult Type 2 diabetes mellitus with hyperglycemia, with long-term current use of insulin ([facility]) Congestive heart failure, unspecified HF chronicity, unspecified heart failure type ([facility]) Hypothyroidism, unspecified type Stage 3 chronic kidney disease, unspecified whether stage 3a or 3b CKD ([facility]) Elevated prostate specific antigen (PSA) Mild vitamin D deficiency HEALTH HISTORY SCANNED DOCUMENT 06/08/2025 3:00 AM EDT REFERRAL SCANNED DOCUMENT 05/31/2025 3:00 AM EDT GLUCOSE, BLOOD BY GLUCOSE MONITORING DEVICE (CLIA WAIVED)POCT Routine 04/29/2025 3:30 PM EDT Type 2 diabetes mellitus with hyperglycemia, with long-term current use of insulin ([facility]) HEALTH HISTORY SCANNED DOCUMENT 03/31/2025 3:00 AM EDT MICROALBUMIN/CREATINI NE RATIO, URINE, RANDOM Routine 03/11/2025 11:41 AM EDT Type 2 diabetes mellitus with hyperglycemia, with long-term current use of insulin ([facility]) HEMOGLOBIN GLYCOSYLATED A1C Routine 03/11/2025 11:17 AM EDT Type 2 diabetes mellitus with hyperglycemia, with long-term current use of insulin ([facility]) GLUCOSE, BLOOD BY GLUCOSE MONITORING DEVICE (CLIA WAIVED)POCT Routine 03/11/2025 10:46 AM EDT Type 2 diabetes mellitus with hyperglycemia, with long-term current use of insulin ([facility]) PROPHYLAXIS - ADULT Routine 09/21/2024 1 1:00 AM EST Retained tooth root COMP ORAL EVALUATION - NEW/ESTABLISHED PATIENT Routine 09/21/2024 11:00 AM EST Retained tooth root REFERRAL TO PODIATRY Routine 01/14/2024 3:00 AM EDT Uncontrolled type 2 diabetes mellitus with hypoglycemia without coma (HCC-CMS) REFERRAL TO DIABETIC RETINAL EXAM Routine 11/29/2023 3:00 AM EST Uncontrolled type 2 diabetes mellitus with hypoglycemia without coma ([facility]) HIV 1/2 AG & AB W/RFLX (4TH GEN) Routine 04/17/2022 9:55 AM EDT Routine lab draw HEPATITIS C AB W/RFLX HCV RNA, QT, RT PCR Routine 04/17/2022 9:55 AM EDT Routine lab draw from Last 3 Months or Most Recently Relevant to Health Maintenance Results * TSH W/RFLX FREE T4 Routine (06/09/2025 9:54 AM EDT) TSH W/REFLEX TO FT4 1.23 0.40 - 4.50 mIU/L 06/10/2025 4:58 AM EDT [facility] Blood Blood / Unknown 06/09/2025 9 :54 AM EDT 06/10/2025 2:36 AM EDT Narrative [facility] - 06/10/2025 5:20 AM EDT FASTING:NO us Didi Stein PA-C LAB - BLOOD DRAW Final Resul t [facility] [address] [place] [id number], [facility] [address] [place] [phone] * (ABNORMAL) URINALYSIS, COMPLETE W/REFLEX TO CULTURE Urine Routine (06/09/2025 9:54 AM EDT) COLOR YELLOW YELLOW 06/10/2025 3:17 AM EDT [facility] APPEARANCE CLEAR CLEAR 06/10/2025 3:17 AM EDT [facility] SPECIFIC GRAVITY 1.019 1.001 - 1.035 06/10/2025 3:17 AM EDT [facility] URINE PH 6.0 5.0 - 8.0 06/10/2025 3:17 AM EDT [facility] GLUCOSE NEGATIVE NEGATIVE 06/10/2025 3:17 AM EDT [facility] BILIRUBIN NEGATIVE NEGATIVE 06/10/2025 3:17 AM EDT [facility] KETONES NEGATIVE NEGATIVE 06/10/2025 3:17 AM EDT [facility] OCCULT BLOOD NEGATIVE NEGATIVE 06/10/2025 3:17 AM EDT [facility] URINE PROTEIN 1+(A) NEGATIVE 06/10/2025 3:17 AM EDT [facility] NITRITE NEGATIVE NEGATIVE 06/10/2025 3:17 AM EDT [facility] LEUKOCYTE ESTERASE NEGATIVE NEGATIVE 06/10/2025 3:17 AM EDT [facility] URINE LEUKOCYTES NONE SEEN 0 - 5 /HPF 06/10/2025 3:17 AM EDT [facility] RBC NONE SEEN 0 - 2 /HPF 06/10/2025 3:17 AM EDT [facility] SQUAMOUS EPITHELIAL CELLS NONE SEEN < OR = 5 /HPF 06/10/2025 3:17 AM EDT [facility] BACTERIA NONE SEEN NONE SEEN /HPF 06/10/2025 3:17 AM EDT [facility] HYALINE CAST NONE SEEN NONE SEEN /LPF 06/10/2025 3:17 AM EDT [facility] SEE NOTE SEE NOTE 06/10/2025 3:17 AM EDT [facility] Urine Urine specimen / Unknown 06/09/2025 9:54 AM EDT 06/10/2025 2:52 AM EDT Narrative [facility] - 06/10/2025 3:17 AM EDT FASTING:NO This urine was analyzed for the presence of WBC, RBC, bacteria, casts, and other formed elements. Only those elements seen were reported. . . us Didi Stein PA-C LAB URINE AMBULATORY Final R esult [facility] [address] [address], [facility] [address] [address] * RFLX - REFLEXIVE URINE CULTURE Routine (06/09/2025 9:54 AM EDT) REFLEXIVE URINE CULTURE SEE NOTE 06/10/2025 3:17 AM EDT [facility] 06/09/2025 9:54 AM EDT 06/10/2025 2:52 AM EDT [employer] - 06/10/2025 3:17 AM EDT FASTING:NO NO CULTURE INDICATED Didi Stein PA-C LAB - MICROBIOLOGY AMBULATOR Y Final Result Performing Organization Address [facility]/ZIP Co de Phone Number [facility] [address] [place] [phone], [facility] [address] [place] [phone] * (ABNORMAL) MICROALBUMIN/CREATININE RATIO, URINE, RANDOM Urine Routine (06/09/2025 9:54 AM EDT) Only the most recent of2 resultswithin the time period is included. CREATININE, RANDOM URINE 165 20 - 320 mg/dL 06/10/2025 5:52 PM EDT [facility] MICROALBUMIN 12.2 mg/dL 06/10/2025 5:52 PM EDT [facility] MICROALBUMIN/CRE ATININE RATIO, RANDOM URINE 74(H) <30 mg/g creat 06/10/2025 5:52 PM EDT [facility] Urine Urine specimen / Unknown 06/09/2025 9:54 AM EDT 06/10/2025 2:07 AM EDT [employer] - 06/10/2025 5:58 PM EDT FASTING:NO Reference Range Not established . The ADA defines abnormalities in albumin excretion as follows: . Albuminuria Category Result (mg/g creatinine) . Normal to Mildly increased <30 Moderately increased 30-299 Severely increased > OR = 300 . The ADA recommends that at least two of three specimens collected within a 3-6 month period be abnormal before considering a patient to be within a diagnostic category. us Didi Stein PA-C LAB URINE AMBULATORY Final R esult Performing Organization Address City/State/[facility] de Phone Number [facility] [address] [address], [facility] [address] [address] * VITAMIN B12 & FOLATE Routine (06/09/2025 9:54 AM EDT) Pathologist [facility] VITAMIN B12 391 200 - 1,100 pg/mL 06/10/2025 4:58 AM EDT [facility] FOLATE, SERUM 8.0 ng/mL 06/10/2025 4:58 AM EDT [facility] Blood Blood / Unknown 06/09/2025 9 :54 AM EDT 06/10/2025 2:36 AM EDT Narrative [employer] [facility] - 06/10/2025 5:20 AM EDT FASTING:NO . Please Note: Although the reference range for vitamin B12 is 200-1100 pg/mL, it has been reported that between 5 and 10% of patients with values between 200 and 400 pg/mL may experience neuropsychiatric and hematologic abnormalities due to occult B12 deficiency; less than 1% of patients with values above 400 pg/mL will have symptoms. . Reference Range Low: <3.4 Borderline: 3.4-5.4 Normal: >5.4 . us Didi Stein PA-C LAB - BLOOD DRAW Final Resul t Performing Organization Address [facility] de Phone Number [facility] [address] [address], [employer] [address] [address] * (ABNORMAL) BLOOD COUNT COMPLETE AUTO&AUTO DIFRNTL WBC Routine (06/09/2025 9:54 AM EDT) Pathologist [facility] WHITE BLOOD CELL COUNT 8.3 3.8 - 10.8 Thousand/ uL 06/10/2025 3:49 AM EDT [facility] RED BLOOD CELL COUNT 4.47 4.20 - 5.80 Million/u L 06/10/2025 3:49 AM EDT [facility] HEMOGLOBIN 12.6(L) 13.2 - 17.1 g/dL 06/10/2025 3:49 AM EDT [facility] HEMATOCRIT 40.4 38.5 - 50.0 % 06/10/2025 3:49 AM EDTeradici [facility] MCV 90.4 80.0 - 100.0 fL 06/10/2025 3:49 AM EDT [facility] MCH 28.2 27.0 - 33.0 pg 06/10/2025 3:49 AM EDTeradici [facility] MCHC 31.2(L) 32.0 - 36.0 g/dL 06/10/2025 3:49 AM EDTeradici [facility] RDW 15.4(H) 11.0 - 15.0 % 06/10/2025 3:49 AM EDTripletPlus [facility] PLATELET COUNT 353 140 - 400 Thousand/ uL 06/10/2025 3:49 AM EDTeradici [facility] MPV 9.5 7.5 - 12.5 fL 06/10/2025 3:49 AM [facility] ABSOLUTE NEUTROPHILS 4,723 1,500 - 7,800 cells/uL 06/10/2025 3:49 AM EDTeradici [facility] ABSOLUTE LYMPHOCYTES 2,150 850 - 3,900 cells/uL 06/10/2025 3:49 AM EDTeradici [facility] ABSOLUTE MONOCYTES 481 200 - 950 cells/uL 06/10/2025 3:49 AM [facility] ABSOLUTE EOSINOPHILS 896(H) 15 - 500 cells/uL 06/10/2025 3:49 AM [facility] ABSOLUTE BASOPHILS 50 0 - 200 cells/uL 06/10/2025 3:49 AM [facility] NEUTROPHILS PCT 56.9 % 3:49 AM EDTeradici [facility] LYMPHOCYTES 25.9 % 06/10/2025 3:49 AM EDTeradici [facility] MONOCYTES 5.8 % 06/10/2025 3:49 AM [facility] EOSINOPHILS 10.8 % 06/10/2025 3:49 AM EDTeradici [facility] BASOPHILS 0.6 % 06/10/2025 3:49 AM [employer] [facility] Blood Blood / Unknown 06/09/2025 9 :54 AM EDT 06/10/2025 2:39 AM EDT [employer] - 06/10/2025 3:54 AM EDT FASTING:NO For adults, a slight decrease in the calculated MCHC value (in the range of 30 to 32 g/dL) is most likely not clinically significant; however, it should be interpreted with caution in correlation with other red cell parameters and the patient's clinical condition. us Didi Stein PA-C LAB - BLOOD DRAW Final Resul t Performing Organization Address [facility] Co de Phone Number [facility] [address] [place] [address], [employer] [address] [phone] * (ABNORMAL) ASSAY OF PROSTATE SPECIFIC ANTIGEN TOTAL Routine (06/09/2025 9:54 AM EDT) PSA, TOTAL 25.31(H) < OR = 4.00 ng/mL 06/10/2025 4:58 AM EDT [facility] Blood Blood / Unknown 06/09/2025 9 :54 AM EDT 06/10/2025 2:36 AM EDT [employer] - 06/10/2025 5:20 AM EDT FASTING:NO The total PSA value from this assay system is standardized against the WHO standard. The test result will be approximately 20% lower when compared to the equimolar-standardized total PSA (Karma Rashid). Comparison of serial PSA results should be interpreted with this fact in mind. . This test was performed using the Siemens chemiluminescent method. Values obtained from different assay methods cannot be used interchangeably. PSA levels, regardless of value, should not be interpreted as absolute evidence of the presence or absence of disease. Didi Stein PA-C LAB - BLOOD DRAW Final Resul t Performing Organization Address [facility] Co de Phone Number [facility] [address] [address], [employer] [address] [address] * ASSAY OF MAGNESIUM Routine (06/09/2025 9:54 AM EDT) MAGNESIUM 2.1 1.5 - 2.5 mg/dL 06/10/2025 3:49 AM EDT [facility] Blood Blood / Unknown 06/09/2025 9 :54 AM EDT 06/10/2025 2:36 AM EDT [employer] - 06/10/2025 3:54 AM EDT FASTING:NO Didi Stein PA-C LAB - BLOOD DRAW Final Resul t Performing Organization Address [facility] Co de Phone Number [facility] [address] [place] [address], [employer] [address] [phone] * (ABNORMAL) HEMOGLOBIN GLYCOSYLATED A1C Routine (06/09/2025 9:54 AM EDT) Only the most recent of2 resultswithin the time period is included. HEMOGLOBIN A1C 8.1(H) <5.7 % 06/10/2025 4:00 PM EDT [facility] Blood Blood / Unknown 06/09/2025 9 :54 AM EDT 06/10/2025 2:39 AM EDT [employer] - 06/10/2025 4:05 PM EDT FASTING:NO For someone without known diabetes, a hemoglobin A1c value of 6.5% or greater indicates that they may have diabetes and this should be confirmed with a follow-up test. . For someone with known diabetes, a value <7% indicates that their diabetes is well controlled and a value greater than or equal to 7% indicates suboptimal control. A1c targets should be individualized based on duration of diabetes, age, comorbid conditions, and other considerations. . Currently, no consensus exists regarding use of hemoglobin A1c for diagnosis of diabetes for children. . us Didi Stein PA-C LAB - BLOOD DRAW Final Resul t Performing Organization Address City/[facility]/ZIP Co de Phone Number [facility] [address] [place] [phone], [employer] [place] [employer] [address] [place] [phone] * (ABNORMAL) 25 HYDROXY INCLUDES FRACTIONS IF PERFORMED Routine (06/09/2025 9:54 AM EDT) Pathologist [facility] VITAMIN D, 25-OH, TOTAL 28(L) 30 - 100 ng/mL 06/10/2025 4:58 AM EDT [facility] Blood Blood / Unknown 06/09/2025 9 :54 AM EDT 06/10/2025 2:36 AM EDT Narrative [employer] [facility] - 06/10/2025 5:20 AM EDT FASTING:NO Vitamin D Status 25-OH Vitamin D: . Deficiency: <20 ng/mL Insufficiency: 20 - 29 ng/mL Optimal: > or = 30 ng/mL . For 25-OH Vitamin D testing on patients on D2-supplementation and patients for whom quantitation of D2 and D3 fractions is required, the QuestAssureD(TM) 25-OH VIT D, (D2,D3), LC/MS/MS is recommended: order code 49573 (patients >2yrs). . See Note 1 . Note 1 . For additional information, please refer to http://education.Gaopeng/faq/OUN800 (This link is being provided for informational/ educational purposes only.) us Didi Stein PA-C LAB - BLOOD DRAW Final Resul t [facility] [address] [place] [address], [facility] [address] [address] * (ABNORMAL) LIPID PANEL Routine (06/09/2025 9:54 AM EDT) [facility] CHOLESTEROL, TOTAL 236(H) <200 mg/dL 06/10/2025 3:49 AM EDT [facility] HDL CHOLESTEROL 44 > OR = 40 mg/dL 06/10/2025 3:49 AM EDT [employer] TRIGLYCERIDES 190(H) <150 mg/dL 06/10/2025 3:49 AM EDT [facility] LDL-CHOLESTEROL 157(H) mg/dL (calc) 06/10/2025 3:49 AM EDT [facility] CHOL/HDLC RATIO 5.4(H) <5.0 (calc) 06/10/2025 3:49 AM EDT [facility] NON-HDL CHOLESTEROL 192(H) <130 mg/dL (calc) 06/10/2025 3:49 AM EDT [facility] Blood Blood / Unknown 06/09/2025 9 :54 AM EDT 06/10/2025 2:36 AM EDT Narrative [employer] [facility] - 06/10/2025 3:54 AM EDT FASTING:NO Reference range: <100 . Desirable range <100 mg/dL for primary prevention; <70 mg/dL for patients with CHD or diabetic patients with > or = 2 CHD risk factors. . LDL-C is now calculated using the Chapo calculation, which is a validated novel method providing better accuracy than the Friedewald equation in the estimation of LDL-C. Gerald HENNESSY et al. GIOVANNA. 2013;310(19): 7681-8833 (http://education.Gaopeng/faq/WWD173) For patients with diabetes plus 1 major ASCVD risk factor, treating to a non-HDL-C goal of <100 mg/dL (LDL-C of <70 mg/dL) is considered a therapeutic option. us Didi HANNAHC LAB - BLOOD DRAW Final Resul t [facility] [address] [place] [address], [employer] [address] [address] * (ABNORMAL) COMPREHENSIVE METABOLIC PANEL Routine (06/09/2025 9:54 AM EDT) GLUCOSE 63(L) 65 - 139 mg/dL 06/10/2025 3:49 AM EDT [facility] UREA NITROGEN (BUN) 16 7 - 25 mg/dL 06/10/2025 3:49 AM EDT [facility] CREATININE (blood) 1.50(H) 0.70 - 1.35 mg/dL 06/10/2025 3:49 AM EDT [facility] EGFR 51(L) > OR = 60 mL/min/1. 73m2 06/10/2025 3:49 AM EDT [facility] BUN/CREATININE RATIO 11 6 - 22 (calc) 06/10/2025 3:49 AM EDT [facility] SODIUM 139 135 - 146 mmol/L 06/10/2025 3:49 AM EDT [facility] POTASSIUM 4.5 3.5 - 5.3 mmol/L 06/10/2025 3:49 AM EDTripletPlus [facility] CHLORIDE 104 98 - 110 mmol/L 06/10/2025 3:49 AM EDTripletPlus [facility] CARBON DIOXIDE 27 20 - 32 mmol/L 06/10/2025 3:49 AM EDTripletPlus [facility] CALCIUM 8.8 8.6 - 10.3 mg/dL 06/10/2025 3:49 AM EDTripletPlus [facility] PROTEIN, TOTAL 7.2 6.1 - 8.1 g/dL 06/10/2025 3:49 AM EDTeradici [facility] ALBUMIN 3.8 3.6 - 5.1 g/dL 06/10/2025 3:49 AM [employer] [facility] GLOBULIN 3.4 1.9 - 3.7 g/dL (calc) 06/10/2025 3:49 AM [employer] [facility] ALBUMIN/GLOBULI N RATIO 1.1 1.0 - 2.5 (calc) 06/10/2025 3:49 AM [employer] [facility] BILIRUBIN, TOTAL 0.3 0.2 - 1.2 mg/dL 06/10/2025 3:49 AM [employer] [facility] ALKALINE PHOSPHATASE 104 35 - 144 U/L 06/10/2025 3:49 AM [employer] [facility] AST 13 10 - 35 U/L 06/10/2025 3:49 AM [employer] [facility] ALT 15 9 - 46 U/L 06/10/2025 3:49 AM [employer] [facility] Blood Blood / Unknown 06/09/2025 9 :54 AM EDT 06/10/2025 2:36 AM EDT [employer] [facility] - 06/10/2025 3:54 AM EDT FASTING:NO . Non-fasting reference interval . us Didi Stein PA-C LAB - BLOOD DRAW Final Resul t [employer] [facility] [address] [address], [place] [facility] [address] [place] [address] * HEALTH HISTORY SCANNED DOCUMENT (06/08/2025 3:00 AM EDT) Only the most recent of2 resultswithin the time period is included. 06/08/2025 3:00 AM EDT Chri Provider Default SCAN OTHER ORDERS Final Re sult * REFERRAL SCANNED DOCUMENT (05/31/2025 3:00 AM EDT) 05/31/2025 3:00 AM EDT Cassandra BOLANOS-C SCAN REFERRAL Final Result * (ABNORMAL) GLUCOSE, BLOOD BY GLUCOSE MONITORING DEVICE (CLIA WAIVED)POCT Routine (04/29/2025 3:30 PM EDT) Only the most recent of2 resultswithin the time period is included. GLUCOSE 128(A) 70 - 100 mg/dL [facility] Capillary Blood Blood / Unknown 3:30 PM EDT Nikolai Stephenson PharmD LAB - BLOOD DRAW Final Resu lt [facility] * REFERRAL TO PODIATRY (01/14/2024 3:00 AM EDT) 01/14/2024 3:00 AM EDT Cassandra BOLANOS-C REFERRAL Final Result * REFERRAL FOR DIABETIC RETINAL EXAM (11/29/2023 3:00 AM EST) 11/29/2023 3:00 AM EST Cassandra Moses PA-C REFERRAL Final Result * Hep C Antibody with Reflex HCV RNA (04/17/2022 9:55 AM EDT) HEPATITIS C ANTIBODY NON-REACT ANTHONY NON-REACT ANTHONY [facility] SIGNAL TO CUT-OFF 0.11 <1.00 [facility] Comment: HCV antibody was non-reactive. There is no laboratory evidence of HCV infection. In most cases, no further action is required. However, if recent HCV exposure is suspected, a test for HCV RNA (test code 86366) is suggested. For additional information please refer to http://Avectra.The Infatuation/faq/FTD27h3 (This link is being provided for informational/ educational purposes only.) Blood Blood / Unknown 04/17/2022 9 :55 AM EDT 04/17/2022 9:56 AM EDT Cassandra Moses PA-C LAB - BLOOD DRAW Edited Resu lt - Final [employer] [facility] [address] [address], [employer] [facility] [address] [address] * HIV Ag & Ab with Reflex Western Blot (04/17/2022 9:55 AM EDT) HIV AG/AB, 4TH GEN NON-REAC TIVE NON-REAC TIVE [facility] Comment: HIV-1 antigen and HIV-1/HIV-2 antibodies were [...] purpose. For additional information please refer to http://Avectra.The Infatuation/faq/DYY142 (This link is being provided for informational/ educational purposes only.) The performance of this assay has not been clinically validated in patients less than 2 years old. Blood Blood / Unknown 04/17/2022 9 :55 AM EDT 04/17/2022 9:56 AM EDT Cassandra Moses PA-C LAB - BLOOD DRAW Final Resul t [facility] [address] [address], [facility] [address] [address] from Last 3 Months or Most Recently Relevant to Health Maintenance Insurance [place] MED[place] [facility] Care Teams Poultry Offal Icer Relationship Specialty Start Date End Date Cassandra Moses PA-C [address] [place] [address] PCP - General Internal Medicine 12/06/21
--- OUTSIDE RECORDS SUMMARY | 2025-06-11 10:28 | XMS_ITS | Clinical Summary ---
Author Organization [facility] Address [address] [address] Phone Care Team Providers Care Financial Operations Analyst Name Role Phone Unavailable Primary Care Provider [...] age to complete this topic Insurance Medicaid [place] [facility] Medicare UHC Medicare Medicaid [place]
[2025-06-11 10:49] VITALS: BP 144/90; PULSE 93; O2SAT 98; BMI 31.6
--- NOTE | 2025-06-11 10:49 | HO.NEPHOV ---
Vital Signs 06/11/25 10:49 Height 6 ft 2 in Weight 246 lb BMI 31.6 BP 144/90 H Blood Pressure Location Rt brachial Position Sitting Pulse 93 Pulse Source Pulse Oximeter Pulse Oximetry (%) 98 Oxygen Delivery Method Room Air Intake Visit Reasons: [facility]- Seen by Julio Marketing Finance Specialist Required: Yes Marketing Finance Specialist Name: Dilshad [phone] Accompanied by: Spouse Allergies No Known Drug Allergies Allergy (Verified 06/11/25 10:51) Unknown Medication List - Last Reconciled 06/11/25 by Erasmo Pulido MD albuterol sulfate 90 mcg/actuation 2 puffs inhalation Q4H PRN aripiprazole 2 mg PO DAILY atorvastatin 80 mg PO BEDTIME Held on 05/26/25. Instructions: Resume on 07/03/25. Hold while on daptomycin, per infectious disease carvedilol 12.5 mg PO BID daptomycin 500 mg IV DAILY dulaglutide (Trulicity) 1.5 mg subcut TU gabapentin 100 mg PO TID insulin degludec (Tresiba FlexTouch U-100 insulin) 32 units subcut DAILY insulin lispro (Humalog KwikPen (U-100) Insulin) See Protocol sliding scale doses subcut TIDAC levothyroxine 50 mcg PO DAILY@0600 pantoprazole 40 mg PO DAILY@0630 sacubitril-valsartan 97-103 mg (Entresto) 1 tab PO BID tamsulosin 0.4 mg PO DAILY torsemide 40 mg PO BID Held on 05/26/25. Instructions: Resume on 06/05/25. Hold until your nephrology visit. Dr. Delong will make further recommendations about whether to resume or continue holding. HPI Comments Details: The patient is a 65-year-old male presenting with chronic kidney disease. He was referred for nephrology consultation due to ongoing kidney issues. The patient has a history of diabetes mellitus, and has been managing it alongside hyperlipidemia and hypertension. He also reports benign prostatic hyperplasia History of coronary artery disease status post stent placement. History of cardiomyopathy status post CardioMEMS. History of COPD/asthma The patient reports swelling in his legs, identified as peripheral edema, despite adherence to diuretic therapy. He attributes the edema to cardiac issues, as his heart rate has been slow, necessitating cardiology consultations. [facility] Medical History Osteomyelitis CKD (chronic kidney disease) stage 3, GFR 30-59 ml/min Class 1 obesity Social History Household Members: Spouse Housing: Apartment Do you presently have visiting nurse or other home services: Yes ([employer]) Patient Tobacco Use Status: Never used Tobacco e-Cigarette/Vaping Use: Never Used service: No Review of Systems Const Denies anorexia, Denies fever(s) and Denies weakness Eyes Denies blurry vision Card Denies no additional complaints and Denies dyspnea Resp Reports no additional complaints, Reports cough and Denies dyspnea GI Denies melena and Denies diarrhea Denies hematuria Musc Denies tingling Skin/Breast Denies rash Neuro Denies focal weakness, Denies tingling, Denies tremor(s) and Denies weakness Physical Exam Vital Signs: Last Vital Signs Pulse 93 06/11/25 10:49 BP 144/90 H 06/11/25 10:49 Pulse Ox 98 06/11/25 10:49 Oxygen Delivery Method Room Air 06/11/25 10:49 BMI result Body Mass Index 31.6 Const General: comfortable Nutritional Appearance: well nourished Orientation/consciousness: patient oriented x3 HEENT Head: No normal to inspection Mouth: moist mucous membranes Neck Neck: Yes supple and Yes no JVD Resp Auscultation: clear to auscultation bilaterally, no rales and rub present Cardio Jugular venous distension: no JVD Palpation: no palpable S3 and no palpable S4 Heart sounds: no rubs GI Palpation (GI): Soft to palpation and nontender Percussion: No Fluid wave present General: Yes no CVA tenderness Back/Spine/Pelvis Back: no CVA tenderness Skin General skin exam: no rashes or lesions noted Neuro General: patient oriented x3 Extrem General: No clubbing and Yes edema Results Reviewed Nephrology Results: Hgb, (14.0-18.0) 12.0 g/dl L 06/04/25 WBC, (4.8-10.8) 7.4 X10*3/uL 06/04/25 Plt Count, (160-400) 339 X10*3/uL Δ 06/04/25 Sodium, (135-145) 138 mmol/L 05/26/25 Potassium, (3.3-5.1) 3.9 mmol/L 05/26/25 Chloride, (96-108) 97 mmol/L 05/26/25 Carbon Dioxide, (22-29) 30 mmol/L H 05/26/25 BUN, (9-16) 38 mg/dL H 05/26/25 Creatinine, (0.5-1.4) 1.87 mg/dL H 05/26/25 Calcium, (8.4-10.2) 9.2 mg/dL 05/26/25 Urine Protein, (Neg-Trace) Negative mg/dL 05/24/25 Assessment & Plan Assessment & Plan (1) VINCENT (acute kidney injury): Code(s): N17.9 - Acute kidney failure, unspecified Category: Medical Plan CKD 3 a in a setting of longstanding hypertension diabetes mellitus and cardiomyopathy. There has been a mild bump in serum creatinine from the baseline. Differential diagnosis would include underlying diabetic hypertensive kidney disease. Bump in serum creatinine may be related to altered hemodynamics. Obstructive uropathy should certainly be ruled out. Recommendations Stay on low-sodium diet Optimize blood pressure. Avoid hypotension. Obtain renal ultrasonogram. Workup initiated including urine analysis, urine protein creatinine ratio. Continue current medications Encouraged him to stay on the current dose of diuretics. Discussed importance of tight control of blood sugar and blood pressure to slow the progression disease. Returned to the office once the baseline workup is completed. He is at high risk for progression of CKD. Orders: Orders Creatinine Urine Today N17.9 - Acute kidney failure, unspecified UA and rflx microscopic Today N17.9 - Acute kidney failure, unspecified Total Protein Urine Random Today N17.9 - Acute kidney failure, unspecified US renal BI Today N17.9 - Acute kidney failure, unspecified Blood Urea Nitrogen Today N17.9 - Acute kidney failure, unspecified, N18.4 - Chronic kidney disease, stage 4 (severe) Complete Blood Count no Diff Today N17.9 - Acute kidney failure, unspecified Coding Level of Care Code New Pt Level 4 (76974) Diagnoses VINCENT (acute kidney injury) N17.9
== END 2025-06-11 11:10 | disposition home or self-care (01) ==
LOC: HO.HKA 10:19
PROVIDERS: PCP Physician Assistant; Visit Provider Internal Medicine Hypertension Specialist
DX: N17.9 Acute kidney failure, unspecified (principal)
CPT/HCPCS: 99204

== ENCOUNTER → 2025-06-11 10:18 | Outpatient (BNVA) | payer OTHER, SELFPAY | PROVIDERS: PCP Physician Assistant; Visit Provider Internal Medicine Hypertension Specialist | DX: E11.22 Type 2 diabetes mellitus with diabetic chronic kidney disease (principal); N18.30 Chronic kidney disease, stage 3 unspecified; N17.9 Acute kidney failure, unspecified | CPT/HCPCS: 99202 ==

== ENCOUNTER 2025-06-11 11:18 | Outpatient (REF) | payer OTHER, SELFPAY ==
[2025-06-11 13:16] LABS: Appearance Urine Clear; Glucose Urine UA Negative (Negative); PH 6.0 (5.0-9.0); Specific Gravity - Urine 1.020 (1.005-1.025); UMIC TRIGGER UA YES
[2025-06-11 13:19] LABS: Hematocrit 38.3 % (42.0-52.0); Hemoglobin 12.5 g/dl (14.0-18.0); Mean Corpuscular HGB Conc 32.6 g/dl (31.0-36.0); Mean Corpuscular Hemoglobin 28.0 pg (27.0-33.0); Mean Corpuscular Volume 85.7 fL (80.0-98.0); NRBC Abs Auto 0.000 X10*3/uL (0.0-0.012); NRBC Pct Auto 0.0 /100WBC (0.0-0.2); Platelet Count 318 X10*3/uL (160-400); Red Blood Count 4.47 X10*6/uL (4.60-5.80); White Blood Count 9.7 X10*3/uL (4.8-10.8)
[2025-06-11 13:37] LABS: Blood Urea Nitrogen 11 mg/dL (9-16)
[2025-06-11 14:29] LABS: Total Protein Urine Random 49 mg/dL (<12)
== END 2025-06-11 11:19 | disposition home or self-care (01) ==
LOC: HO.10HDL 11:18
PROVIDERS: Visit Provider Internal Medicine Hypertension Specialist
DX: N17.9 Acute kidney failure, unspecified (principal); N18.4 Chronic kidney disease, stage 4 (severe)
CPT/HCPCS: 36415; 81001; 82570; 84156; 84520; 85027

== ENCOUNTER 2025-06-11 14:32 | Outpatient (REF) | payer OTHER, SELFPAY ==
[2025-06-11 14:36] LABS: MANUAL DIFF FLAG NO
[2025-06-11 14:43] LABS: Hematocrit 35.5 % (42.0-52.0); Hemoglobin 11.6 g/dl (14.0-18.0); Imm Gran Abs Auto 0.01 X10*3/uL (0.00-0.03); Imm Gran Pct Auto 0.1 % (0.0-0.4); Lymphocytes Absolute Auto 2.0 X10*3/uL (1.2-4.9); Mean Corpuscular HGB Conc 32.7 g/dl (31.0-36.0); Mean Corpuscular Hemoglobin 28.0 pg (27.0-33.0); Mean Corpuscular Volume 85.5 fL (80.0-98.0); NRBC Abs Auto 0.000 X10*3/uL (0.0-0.012); NRBC Pct Auto 0.0 /100WBC (0.0-0.2); Platelet Count 290 X10*3/uL (160-400); Red Blood Count 4.15 X10*6/uL (4.60-5.80); White Blood Count 8.7 X10*3/uL (4.8-10.8)
[2025-06-11 15:09] LABS: Alanine Aminotransferase 13 U/L (0-40); Albumin Level 3.6 g/dL (3.5-5.0); Alkaline Phosphatase 102 U/L (39-117); Anion Gap 13 (12-20); Aspartate Amino Transferase 23 U/L (5-37); Blood Urea Nitrogen 11 mg/dL (9-16); Calcium 8.8 mg/dL (8.4-10.2); Carbon Dioxide 23 mmol/L (22-29); Chloride 104 mmol/L (96-108); Estimated Glomerular Filt Rate 45; Potassium 3.4 mmol/L (3.3-5.1); Sodium 137 mmol/L (135-145); Total Protein 7.1 g/dL (6.5-8.0)
== END 2025-06-11 14:33 | disposition home or self-care (01) ==
LOC: HO.HVNA 14:32
PROVIDERS: Visit Provider Internal Medicine
DX: M86.172 Other acute osteomyelitis, left ankle and foot (principal); N18.4 Chronic kidney disease, stage 4 (severe); N17.9 Acute kidney failure, unspecified
CPT/HCPCS: 36415; 80053; 82550; 85025

== ENCOUNTER 2025-06-18 13:41 | Outpatient (REF) | payer OTHER, SELFPAY ==
--- OUTSIDE RECORDS SUMMARY | 2025-06-17 15:00 | XMS_ITS | Encounter Summary ---
Author Organization [facility] Address [address] [place] [address] Care Team Providers Care Graduate Recruiter Name Role Phone Cassandra Moses PA-C Primary Care Provider + [phone] Reason for Visit * Reason Comments Diabetes Mellitus DM follow up . No co ncern Encounter Details Date Type Department Care Team ([facility] st Contact Info) Description 06/17/2025 3:00 PM EDT Office Visit [facility] [address] [place] [address] Nikolai Stephenson PharmD [address] [place] [address] Magali Faust [address] [place] [address] Social History Tobacco Use Types Packs/Day Years [...] Orientation Straight 03/01/2022 7: 01 AM PDT documented as of this encounter Last Filed Vital Signs Vital Sign Reading Time Taken Comments Blood Pressure 140/90 06/17/2025 3:29 PM EDT Pulse 81 06/17/2025 3:08 PM EDT Temperature 36.4 C (97.6 F) 06/17/2025 3:08 PM EDT Respiratory Rate 16 06/17/2025 3:08 PM EDT Oxygen Saturation 98% 06/17/2025 3:08 PM EDT Inhaled Oxygen Concentration - - Weight 112.7 kg (248 lb 8 oz) 06/17/2025 3:08 PM EDT Height 188 cm (6' 2 ) 06/17/2025 3:08 PM EDT Body Mass Index 31.91 06/17/2025 3:08 PM EDT documented in this encounter Progress Notes * Nikolai Stephenson PharmD - 06/17/2025 3:00 PM EDT Yanick Lambert is a 65 year old, Guatemalan-speaking male who presents today for a follow-up visit in Diabetes[facility] Clinic with Nikolai Stephenson PharmD. Referred by JADON Long (Guatemalan) interpreted for today's visit. is present and assisting with interpretation during this in-person visit. Accompanied by: Subjective: Patient reports: Patient reports doing well, endorses proper use of medications, and denies any issues today. Injects 32 units of Tresiba each morning and injects on average 4 units of Humalog each meal, and injects Trulicity on Fridays with no issues. Patient reports eating lunch in the setting of controlled BG today. Patient reports trying to eat better smaller portions, less carbs, healthier options, and some juice but limited water. Limited on exercise due to foot infection. Has noticed BG much improved with better diet. New concerns: Has LLE L>R, believes may be due to left foot infection currently getting antibiotics, has been on for 2 weeks. F/U with Dr. Huang 06/30/25 @1:45 C. Tobacco Use: Never Smoker Tobacco Intervention:provided smoking cessation counseling Alcohol Use: No alcohol use Additional OTC medications or supplements: None Specialists managing DM/HTN: Nephrology (Location: [facility], Dr Dominguez, last seen 03/21/23,follow-up 12/27/23) No notes available only cover sheet indicating next appointment on 01/16/24 @10:45AM. Cardiology (Location: [facility], Dr. Vega, Last seen: 01/21/23, F/U: N/A.) Patient following up for heart failure and was overall doing well and stable. Patient was having difficulty with CardioMEMs machine and had recommendations to adjust medications, however unclear if medications changes were donedue to lack of F/U. Diabetes Current Diabetes RX: Humalog sliding 3 times a day 100-149: 15 units, 150-199: 18 units, 200-249: 21 units, 250-299: 24 units, 300-349: 27 units, 350-399: 30 units. Tresiba 32 units once daily Trulicity 1.5mg once weekly Last foot exam: 06/12/25 Last eye exam: 11/29/23 per . Exercise/Physical activity: sporadic irregular exercise: walking and home exercises, but limited byfoot infection. Diet: Patient denies eating salt or canned foods. Reports eating a variety of foods, does endorse eating bread (sandwiches) and oatmeal as main carbs. Occasional juice. Drinks a lot of water. Denies coffee or tea. Patient and family has been trying to eat better and limiting carbs and other bad foods , more chicken and vegetables recently. Has cut down on portion sizes recently. CGM Metrics: SMBG (CGM: [email or web address] Maida 3 Plus) Hypoglycemic events in the last 2 weeks: Yes, patient able to convey proper hypoglycemic treatment. 7-day av mg/dL 12 scans per day: 87% Highest: 6 AM - 12 PM: 121 mg/dL Above: 1% Within: 92% Below: 7% Hypoglycemic events: 8 14-day av mg/dL 13 scans per day: 93% Highest: 12 AM - 6 AM: 163 mg/dL Above: 23% Within: 71% Below: 6% Hypoglycemic events: 13 30-day av mg/dL 11 scans per day: 81% Highest: 6 AM - 12 PM: 185 mg/dL Above: 39% Within: 57% Below: 4% Hypoglycemic events: 15 HTN Current HTN RX: Carvedilol 12.5mg twice daily Entresto 97-103mg twice daily Torsemide 20mg 2 tablets twice daily Patient denies checking blood pressure at home due to lack of possession of BP monitor BP Readings: N/A. Objective: Allergies reviewed: Allergies Allergen Reactions White Beans [Beans] BP (!) 148/86 Pulse 81 Temp 97.6 ??F (36.4 ??C) Resp 16 Ht 6' 2 (1.88 m) Wt 248 lb 8 oz (112.7 kg) SpO2 98% BMI 31.91 kg/m?? Smoking Status Former BSA 2.43 m?? BP (!) 148/86 at 06/17/2025 3:08 PM BP 138/88 at 06/09/2025 9:01 AM BP 130/84 at 04/29/2025 3:14 PM Wt Readings from Last 3 Encounters: 06/17/25 248 lb 8 oz (112.7 kg) 06/09/25 249 lb (112.9 kg) 04/29/25 239 lb (108.4 kg) Lab Results Component Value Date HGBA1C 8.1 (H) 06/09/2025 HGBA1C 8.8 (H) 03/11/2025 HGBA1C 13.5 (H) 11/15/2024 Lab Results Component Value Date GLUCOSE 113 (A) 06/17/2025 EAG 8.2 04/17/2022 Lab Results Component Value Date URALBCREAT 74 (H) 06/09/2025 Lab Results Component Value Date VITB12 391 06/09/2025 FOLATE 8.0 06/09/2025 Lab Results Component Value Date NA 139 06/09/2025 K 4.5 06/09/2025 BUN 16 06/09/2025 BUNCREAT 11 06/09/2025 CREATININE 1.50 (H) 06/09/2025 EGFR 51 (L) 06/09/2025 Estimated Creatinine Clearance: 65.2 mL/min (A) (by C-G formula based on SCr of 1.5 mg/dL (H)). Lab Results Component Value Date TSH 1.23 06/09/2025 Lab Results Component Value Date TRIGLYC 190 (H) 06/09/2025 CHOL 236 (H) 06/09/2025 HDL 44 06/09/2025 LDL 157 (H) 06/09/2025 CHOLHDL 5.4 (H) 06/09/2025 NONHDL 192 (H) 06/09/2025 The 10-year ASCVD risk score (Emily ALBARRAN, et al., 2019) is: 38.6% Assessment: Diabetes: Slightly uncontrolled A1c, Controlled SMBG HTN: slightly uncontrolled ASCVD: Age 40-75 yo, DM, high ASCVD = high intensity statin recommended to reduce LDL by at least 50% (goal LDL <70 mg/dL) Plan: E11.65,Z79.4 Type 2 diabetes mellitus with hyperglycemia, with long-term current use of insulin ([facility]) (primary encounter diagnosis) Plan : GLUCOSE, BLOOD BY GLUCOSE MONITORING DEVICE (CLIA WAIVED)POCT INSULIN LISPRO (U-100) 100 UNIT/ML SUBCUTANEOUS PEN - SLIDING SCALE 3 times a day 100-149: 15 units, 150-199: 18 units, 200-249: 21 units, 250-299: 24 units, 300-349: 27 units, 350-399: 30 units.. TRESIBA FLEXTOUCH U-100 INSULIN 100 UNIT/ML (3 ML) SUBCUTANEOUS PEN - INJECT 32 UNITS INTO THE SKIN EVERY MORNINGStrength: 100 unit/mL (3 mL). Due to improved SMBG/A1c will have patient continue on current regimen for now, aware to cut meal time insulin in half if continuing to get hypoglycemia patient reported understanding and agreed to plan. Will continue to F/U to assess SMBG for any needed medication adjustments. Discussed lifestyle modifications to help manage DM (Increase physical activity as tolerated, weight loss, and healthy low carb diet) Discussed proper SMBG and goals and patient agreed to SMBG daily and bring readings to future appointments. Patient to continue on Entresto for microalbuminuria. PHARMACOTHERAPY for diabetes Humalog sliding scale 3 times a day 100-149: 15 units, 150-199: 18 units, 200- 249: 21 units, 250-299: 24 units, 300-349: 27 units, 350-399: 30 units. Tresiba 32 units daily Trulicity 1.5mg once weekly I10 Essential (primary) hypertension Patients BP slightly elevated today however likely due to ongoing stress and infection, will continue to monitor. PHARMACOTHERAPY for HTN Carvedilol 12.5mg twice daily Entresto 97-103mg twice daily Torsemide 20mg 2 tablets twice daily ASCVD: Per 2024 ADA guidelines for lipid management, continue high-intensity statin: Atorvastatin 80mg. E66.811,E66.09,Z68.31 Class 1 obesity due to excess calories with serious comorbidity and body massindex (BMI) of 31.0 to 31.9 in adult Lifestyle measures:BMI follow up plan: The patient was counseled regarding nutrition and physical activity. Z79.899 Medication management Medications reviewed and medlist updated. Referral: None [facility] Diabetes Clinic: 08/10/25 @1:20PM. Patient agrees with plan of care and verbalizes understanding. Questions were answered. Education: Labs due N/A - will review results and determine best therapy Medication Regimen: (indication, dosage, administration, storage, ADR, missing dose) BG testing and target Proper Injection Technique Healthy Eating Benefits and importance of physical activity Sign / Symptoms of Hyperglycemia / Hypoglycemia Hypoglycemia Treatment (Rule 15) Longterm Complications Uncontrolled Diabetes Nikolai Stephenson PharmD, [facility] documented in this encounter Miscellaneous Notes * Patient Instructions - Nikolai Stephenson PharmD - 06/17/2025 3:03 PM EDT Instructions: Normal blood pressure: less than 130/80 mmHg (should not be lower than 100/60 mmHg) 2. Normal Pulse: 60 - 100 beats per minute 3. Seek emergency care if your blood pressure is greater than 180/110 mmHg and you have symptoms such as chest pain, chest tightness, dizziness/lightheadedness, headaches, palpitations or other pertinent symptoms. 1. Antes del desayuno 80-130mg/dL 2. 2 horas despues de letitia comida <180mg/dL 3. Niveles bajos de azucar en la marcy necesitan aumentar <70mg/dL Yusuf Stephenson PharmD, [facility] Clinical Pharmacist Press 1 for Syriac Enter extension [phone] They will not ask you what extension you want to reach, so just enter extension. You may leave me a message if I do not answer. Please state your name, date of and call back number If you are not able to keep your appointment please call 24-48 hours before your appointment to cancel or reschedule. documented in this encounter Plan of Treatment Upcoming Encounters Date Type Department Care Team ([facility] st Contact Info) Description 07/26/2025 10:20 AM EDT Telemedicine Visit [address] [phone] Didi Stein PA-C [address] [place] [phone] 08/10/2025 1:20 PM EDT Office Visit [address] [phone] Nikolai Stephenson PharmD [address] [place] [address] documented as of this encounter Procedures Procedure Name Priority Date/Time Associated Diagnosis Comments GLUCOSE, BLOOD BY GLUCOSE MONITORING DEVICE (CLIA WAIVED)POCT Routine 06/17/2025 3:07 PM EDT Type 2 diabetes mellitus with hyperglycemia, with long-term current use of insulin ([facility]) documented in this encounter Results * (ABNORMAL) GLUCOSE, BLOOD BY GLUCOSE MONITORING DEVICE (CLIA WAIVED)POCT Routine (06/17/2025 3:07 PM EDT) GLUCOSE 113(A) 70 - 100 mg/dL [facility] POCT Capillary Blood Blood / Unknown 3:07 PM EDT us Nikolai Contesteffi PharmD LAB - BLOOD DRAW Final Resu lt [facility] POCT documented in this encounter Visit Diagnoses Diagnosis Type 2 diabetes mellitus with hyperglycemia, with long-term current use of insulin ([facility])- Primary Essential (primary) hypertension Unspecified essential hypertension Class 1 obesity due to excess calories with serious comorbidity and body mass index (BMI) of 31.0 to 31.9 in adult Medication management Encounter for long-term (current) use of other medications documented in this encounter Additional Health Concerns Assessment Noted Time PHQ-9 Depression Total Score: 0 12/21/19 25 2:31 PM PST documented as of this encounter Care Teams Graduate Recruiter Relationship Specialty Start Date End Date Cassandra Moses PA-C [address] [place] [id number] PCP - General Internal Medicine 12/06/21 documented as of this encounter
--- OUTSIDE RECORDS SUMMARY | 2025-06-18 13:45 | XMS_ITS | Clinical Summary ---
Author Organization [facility] Address [address] [address] Phone Care Team Providers Care Global Sales Executive Name Role Phone Unavailable Primary Care Provider [...] age to complete this topic Insurance Medicaid [place] [facility] Medicare UHC Medicare Medicaid [place]
--- OUTSIDE RECORDS SUMMARY | 2025-06-18 13:45 | XMS_ITS | Clinical Summary ---
Author Organization [facility] Address [address] [place] [address] Phone Care Team Providers Care Internet Consultant Name Role Phone Cassandra Moses Primary Care [...] Team (Late st Contact Info) Description 08/26/2025 12:30 PM EDT Ancillary Procedure [facility] [address] [place] [address] Health Maintenance Due Date Last [...] mg/dL LAB CHEMISTRY METHOD 11/16/2024 4:40 AM [facility] Triglycerides 189(H) 0 - 150 mg/dL LAB CHEMISTRY METHOD 11/16/2024 4:40 AM [facility] HDL 35(L) >=40 mg/dL LAB CHEMISTRY METHOD 11/16/2024 4:40 AM [facility] LDL Calculated 69 0 - 100 mg/dL LAB CHEMISTRY METHOD 11/16/2024 4:40 AM [facility] VLDL Cholesterol Rad 37.8 mg/dL LAB CHEMISTRY METHOD 11/16/2024 4:40 AM [facility] Non HDL Chol. (LDL+VLDL) 107 <145 mg/dL LAB CHEMISTRY METHOD 11/16/2024 4:40 AM [facility] Chol/HDL Ratio 4.1 0.0 - 4.4 LAB CHEMISTRY METHOD 11/16/2024 4:40 AM [facility] Blood Venous blood specimen / Unknown Venipuncture / Unknown 11/16/2024 3:55 AM EST 11/16/2024 3:59 AM EST Nan BOLANOS LAB BLOOD ORDERABLES Fi nal Result [facility] [address] [place] [address], * (ABNORMAL) Basic metabolic panel (11/16/2024 3:55 AM EST) Sodium 138 133 - 145 mmol/L LAB CHEMISTRY METHOD 11/16/2024 4:39 AM [facility] Potassium 3.7 3.5 - 5.5 mmol/L LAB CHEMISTRY METHOD 11/16/2024 4:39 AM [facility] Chloride 107 96 - 110 mmol/L LAB CHEMISTRY METHOD 11/16/2024 4:39 AM [facility] CO2 24 21 - 32 mmol/L LAB CHEMISTRY METHOD 11/16/2024 4:39 AM [facility] Anion Gap 7 3 - 11 LAB CHEMISTRY METHOD 11/16/2024 4:39 AM [facility] Glucose 157(H) 70 - 100 mg/dL LAB CHEMISTRY METHOD 11/16/2024 4:39 AM [facility] BUN 23 5 - 25 mg/dL LAB CHEMISTRY METHOD 11/16/2024 4:39 AM [facility] Creatinine 1.58(H) 0.70 - 1.30 mg/dL LAB CHEMISTRY METHOD 11/16/2024 4:39 AM [facility] eGFR 49(L) >=60 mL/min/1. 73m2 LAB CHEMISTRY METHOD 11/16/2024 4:39 AM [facility] Comment:Calculation based on the Chronic Kidney Disease Epidemiology Collaboration (CKD-EPI) equation refit without adjustment for race. BUN/Creatinine Ratio 14.6 LAB CHEMISTRY METHOD 11/16/2024 4:39 AM [facility] Calcium 8.2(L) 8.5 - 10.5 mg/dL LAB CHEMISTRY METHOD 11/16/2024 4:39 AM [facility] Blood Venous blood specimen / Unknown Venipuncture / Unknown 11/16/2024 3:55 AM EST 11/16/2024 3:59 AM EST us Antonio Doss MD LAB BLOOD ORDERABLES Final Res ult [facility] [address] [place] [address], * (ABNORMAL) Hemoglobin A1c (11/15/2024 1:54 PM EST) Hemoglobin A1C 13.5(H) <6.5 % LAB CHEMISTRY METHOD 11/16/2024 1:32 PM EST [facility] Mean Bld Glu Estim. 341 mg/dL LAB CHEMISTRY METHOD 11/16/2024 1:32 PM EST [facility] Blood Venous blood specimen / Unknown Venipuncture / Unknown 11/15/2024 1:54 PM EST 11/15/2024 2:08 PM EST us Nan BOLANOS LAB BLOOD ORDERABLES Fi nal Result [facility] [address] [place] [address], [place] [phone] from Last 3 Months or Most Recently Relevant to Health Maintenance Insurance [facility] Member Subscriber Plan / Payer (Ef fective 2025-Present) Name:Yanick Power Relation to Subscriber:Self Name:Yanick Arita Payer ID:[id number] Group ID:[id number] Type:Not on file Address: [place] [address] [address] [place] [phone] Advance Directives * Full Code - Default [...] currently active code status orders. Care Teams Internet Consultant Relationship Specialty Start Date End Date Cassandra Moses PA [address] [place] [address] PCP - General 07/12/22
[2025-06-18 13:49] LABS: MANUAL DIFF FLAG NO
[2025-06-18 13:56] LABS: Hematocrit 38.8 % (42.0-52.0); Hemoglobin 12.6 g/dl (14.0-18.0); Imm Gran Abs Auto 0.02 X10*3/uL (0.00-0.03); Imm Gran Pct Auto 0.3 % (0.0-0.4); Lymphocytes Absolute Auto 2.5 X10*3/uL (1.2-4.9); Mean Corpuscular HGB Conc 32.5 g/dl (31.0-36.0); Mean Corpuscular Hemoglobin 28.0 pg (27.0-33.0); Mean Corpuscular Volume 86.2 fL (80.0-98.0); NRBC Abs Auto 0.000 X10*3/uL (0.0-0.012); NRBC Pct Auto 0.0 /100WBC (0.0-0.2); Platelet Count 308 X10*3/uL (160-400); Red Blood Count 4.50 X10*6/uL (4.60-5.80); White Blood Count 7.9 X10*3/uL (4.8-10.8)
[2025-06-18 14:31] LABS: Alanine Aminotransferase 14 U/L (0-40); Albumin Level 3.7 g/dL (3.5-5.0); Alkaline Phosphatase 109 U/L (39-117); Anion Gap 12 (12-20); Aspartate Amino Transferase < 6 U/L (5-37); Blood Urea Nitrogen 18 mg/dL (9-16); Calcium 8.4 mg/dL (8.4-10.2); Carbon Dioxide 25 mmol/L (22-29); Chloride 107 mmol/L (96-108); Estimated Glomerular Filt Rate 41; Potassium 4.1 mmol/L (3.3-5.1); Sodium 140 mmol/L (135-145); Total Protein 7.3 g/dL (6.5-8.0)
== END 2025-06-18 13:42 | disposition home or self-care (01) ==
LOC: HO.HVNA 13:41
PROVIDERS: Visit Provider Internal Medicine
DX: L03.116 Cellulitis of left lower limb (principal)
CPT/HCPCS: 36415; 80053; 82550; 85025

== ENCOUNTER 2025-06-25 17:10 | Outpatient (REF) | payer OTHER, SELFPAY ==
--- OUTSIDE RECORDS SUMMARY | 2024-04-02 06:49 | XMS_ITS | Continuity of Care Document ---
Author Organization [facility] Address [address] [address] Phone Care Team Providers Care Interior Systems Carpenter Name Role Phone Shelly Horvath OT Unavailable Unavailable Advance Directives Directive Yes / No Effective Date File Name No Information Encounters Encounter Description Practice Location Reason(s) For Visit Diagnoses Date Provider [facility], [address] [address], [place], [place], [id number], [place] tel:[phone] [facility] No Information 2023 Alexandru Bravo. [address] [place], [place], [id number], [place]. tel:[phone] Family History Family Member Type Diagnosis Age [...]
[2025-06-25 17:12] LABS: MANUAL DIFF FLAG NO
--- OUTSIDE RECORDS SUMMARY | 2025-06-25 17:13 | XMS_ITS | Clinical Summary ---
Author Organization [facility] Address [address] [address] Phone Care Team Providers Care Labour Market Economist Name Role Phone Unavailable Primary Care Provider [...] age to complete this topic Insurance Medicaid [place] [facility] Medicare UHC Medicare Medicaid [place]
--- OUTSIDE RECORDS SUMMARY | 2025-06-25 17:13 | XMS_ITS | Clinical Summary ---
Author Organization [facility] Address [address] [place] [address] Phone Care Team Providers Care Braid Cutter Name Role Phone Cassandra Moses Primary Care [...] Description 08/26/2025 12:30 PM EDT Ancillary Procedure [facility] [address] [place] [address] Health Maintenance Due Date Last [...] nal Result [facility] [address] [place] [address], * (ABNORMAL) Basic metabolic panel (11/16/2024 3:55 [...] Res ult [facility] [address] [place] [address], * (ABNORMAL) Hemoglobin A1c (11/15/2024 1:54 PM EST) Hemoglobin A1C 13.5(H) <6.5 % LAB CHEMISTRY METHOD 11/16/2024 1:32 PM EST [facility] Mean Bld Glu Estim. 341 mg/dL LAB CHEMISTRY METHOD 11/16/2024 1:32 PM EST [facility] Blood Venous blood specimen / Unknown Venipuncture / Unknown 11/15/2024 1:54 PM EST 11/15/2024 2:08 PM EST us Nan BOLANOS LAB BLOOD ORDERABLES Fi nal Result [facility] [address] [place] [address], [place] [phone] from Last 3 Months or Most Recently Relevant to Health Maintenance Insurance [facility] Member Subscriber Plan / Payer (Ef fective 2025-Present) Name:Yanick Power Relation to Subscriber:Self Name:Yanick Arita Payer ID:[id number] Group ID:[id number] Type:Not on file Address: [place] [address] [address] [address] [place] [phone] Advance Directives * Full Code - Default [...] currently active code status orders. Care Teams Braid Cutter Relationship Specialty Start Date End Date Cassandra Moses PA [address] [place] [address] PCP - General 07/12/22
--- OUTSIDE RECORDS SUMMARY | 2025-06-25 17:13 | XMS_ITS | Clinical Summary ---
Author Organization [facility] Address [address] [place] [address] Care Team Providers Care Chip Bin Conveyor Tender Name Role Phone Cassandra Moses PA-C Primary Care Provider [phone] Source Comments PLEASE NOTE, if this patient [...] INTO LIQUID AND DRINK DAILY. Prescribed By: JAUN JOSÉ GARZA 510 g 03/13/20 24 Active melatonin 1 mg tablet Take 1 Tablet by mouth nightly at bedtime as needed for sleep for up to 30 days 30 Tablet 03/13/20 24 Active MISCELLANEOUS MEDICAL SUPPLY MISCIndications :Type 2 diabetes mellitus without complication, with long-term current use of insulin ([facility]),Essent ial (primary) hypertension,At risk for falling,Diabeti c feet ([facility]) by miscellaneous route daily. Diabetic shoes size [...] complication, with long-term current use of insulin ([facility]),Essent ial (primary) hypertension,At risk for falling,Diabeti c feet ([facility]) by miscellaneous route daily. Diabetic shoes size 11.5 for daily use. Diagnosis diabetes, obesity. Length of need 99 months 1 Each 10/27/20 24 Active pen needle, diabetic 31 gauge x 5/16 ndleIndications :Type 2 diabetes mellitus with hyperglycemia, with long-term current use of insulin ([facility]) To inject insulin 4 times daily. 100 Each 11/06/19 25 Active blood-glucose sensor (FREESTYLE MAIDA 3 PLUS SENSOR) deviIndications :Type 2 diabetes mellitus with hyperglycemia, with long-term current use of insulin ([facility]) Place 1 sensor to back of upper arm every 15 days. Use to monitor blood sugar continuously (Freestyle Maida 3 Plus) 2 Each 11/20/19 25 Active blood-glucose meter,continuou s (FREESTYLE MAIDA 3 READER) miscIndications :Type 2 diabetes mellitus with hyperglycemia, with long-term current use of insulin ([facility]) 1 Units by miscellaneous route daily. To check BS daily. 1 Each 11/20/19 25 Active blood sugar diagnostic stripsIndicatio ns:Type 2 diabetes mellitus with hyperglycemia, with long-term current use of insulin ([facility]) 1 Each 4 (four) times daily Precision Justin test Strips to check sugar 4 times a day. Pt wants home delivery of his sensor/test strips. 100 Each 5 11/20/19 25 Active tamsulosin (FLOMAX) 0.4 mg 24 hr capsuleIndicati ons:Difficulty in voiding TOME LLOYD CAPSULA TODOS [place] PO[place] 90 Capsule 1 12/22/19 25 Active ENTRESTO 97-103 mg tabIndications: Congestive heart failure, unspecified HF chronicity, unspecified heart failure type ([facility]) TOME 1 TABLETA POR VIA ORAL DOS VECES AL ADELSO 180 Tablet 1 02/02/20 25 Active torsemide (DEMADEX) 20 mg tabletIndicatio ns:Congestive heart failure, unspecified HF chronicity, unspecified heart failure type ([facility]) TAKE 2 TABLETS POR VIA ORAL DOS VECES AL ADELSO 360 Tablet 1 04/07/20 25 Active pantoprazole (PROTONIX) 40 mg EC tabletIndicatio ns:Gastroesopha geal reflux disease without esophagitis TOME 1 TABLETA POR VIA ORAL TODOS [place] 90 Tablet 1 04/07/20 25 Active carvediloL (COREG) 12.5 mg tabletIndicatio ns:Congestive heart failure, unspecified HF chronicity, unspecified heart failure type ([facility]),Hypert ension, essential TOME LLOYD TABLETA 2 VECES AL ADELSO CON LAS COMIDAS 180 Tablet 1 04/07/20 25 Active levothyroxine 50 mcg tabletIndicatio ns:Hypothyroidi sm, unspecified type TOME 1 TABLETA POR VIA ORAL TODOS LOS POZO. 84 Tablet 2 04/14/20 25 Active dulaglutide (TRULICITY) 1.5 mg/0.5 mL pen injectorIndicat ions:Type 2 diabetes mellitus with hyperglycemia, with long-term current use of insulin ([facility]) Inject 1.5 mg into the skin once a week. 2 mL 2 05/03/20 25 Active atorvastatin (LIPITOR) 80 mg tabletIndicatio ns:Essential (primary) hypertension Take 1 Tablet by mouth nightly at bedtime. 90 Tablet 1 06/09/20 25 Active insulin lispro 100 unit/mL injection penIndications: Type 2 diabetes mellitus with hyperglycemia, with long-term current use of insulin ([facility]) SLIDING SCALE 3 times a day 100-149: 15 units, 150-199: 18 units, 200-249: 21 units, 250-299: 24 units, 300-349: 27 units, 350-399: 30 units.. 15 mL 1 06/17/20 25 Active TRESIBA FLEXTOUCH U-100 100 unit/mL (3 mL)Indications: Type 2 diabetes mellitus with hyperglycemia, with long-term current use of insulin ([facility]) INJECT 32 UNITS INTO THE SKIN EVERY MORNINGStrength: 100 unit/mL (3 mL). 15 mL 06/17/20 25 Active albuterol HFA 90 mcg/actuation inhaler Inhale 2 Puffs into the lungs every 4 (four) hours as needed for shortness of breath or wheezing 54 Unspecified 2 04/16/20 025 Disconti nued(Out dated-Re moved from Med List (E-Cance l Not Sent)) albuterol (PROVENTIL) 2.5 mg /3 mL (0.083 %) nebulizer solution Take 3 mL by nebulization every 6 (six) hours as needed for wheezing 75 mL 04/16/20 025 Disconti nued(Out dated-Re moved from Med List (E-Cance l Not Sent)) MISCELLANEOUS MEDICAL SUPPLY MIS May have home care services as needed 1 Each 07/24/20 025 Disconti nued(Out dated-Re moved from Med List (E-Cance l Not Sent)) MISCELLANEOUS MEDICAL SUPPLY MISCIndications :Left leg pain,Left foot drop by miscellaneous route daily. Left foot AFO. Please sent to [facility]. Fax - [phone]. BMI 32.56 1 Each 11/29/19 24 025 [...] TWO TIMES A DAY Prescribed By: IGGY BEDOLLA,[facility] 11/05/19 24 025 Disconti nued(Out dated-Re moved from Med List (E-Cance l Not Sent)) atorvastatin (LIPITOR) 80 mg tabletIndicatio ns:Type 2 diabetes mellitus without complication, with long-term current use of insulin ([facility]),Essent ial (primary) hypertension Take 1 Tablet by mouth nightly at bedtime 90 Tablet 1 12/25/19 24 025 Disconti nued(Reo rder (E-Cance l Not Sent)) insulin lispro 100 unit/mL injection penIndications: Uncontrolled type 2 diabetes mellitus with hypoglycemia without coma ([facility]) SLIDING SCALE 3 times a day 100-149: 15 units, 150-199: 18 units, 200-249: 21 units, 250-299: 24 units, 300-349: 27 units, 350-399: 30 units. 15 mL 1 12/12/19 25 025 Disconti nued(Reo rder (E-Cance l Not Sent)) TRESIBA FLEXTOUCH U-100 100 unit/mL (3 mL)Indications: Uncontrolled type 2 diabetes mellitus with hypoglycemia without coma ([facility]) INJECT 32 UNITS INTO THE SKIN EVERY MORNINGStrength: 100 unit/mL (3 mL) 15 mL 1 01/30/20 25 025 Disconti nued(Reo rder (E-Cance l Not Sent)) Active Problems Problem Noted Date Diagnosed Date Class 1 obesity due to exces s calories with serious comorbidity and body mass index (BMI) of 31.0 to 31.9 in adult 12/23/2023 PTSD (post-traumatic stress disorder) 07/05/2022 Generalized anxiety disorder 05/09/2022 Constipation 04/18/2022 Exacerbation of asthma ([facility]) 04/18/2022 Gout 04/18/2022 Hypothyroidism 04/18/2022 Type 2 diabetes mellitus wit h hyperglycemia, with long-term current use of insulin ([facility]) 04/18/2022 Congestive heart failure ([facility]) 022 Elevated prostate specific antigen (PSA) 022 Overview (06/02/2025): 01/25/2025 - [facility] - Dx: Elevated PSA - F/u with MRI of prostate - TRUSP bx w f/u Pneumonia due to coronavirus disease 2019 (CODE) 02/04/2022 Acute kidney failure, unspecified ([facility]) 01/31/2022 Essential (primary) hypertension 01/31/2022 Stage 3 chronic kidney disease ([facility]) 0 01/31/2022 Encounters Date Type Department Care Team Description 06/17/2025 3:00 PM EDT Office Visit [address] [phone] Nikolai Stephenson, PharmD Magali Faust 06/09/2025 9:00 AM EDT Office Visit [address] [phone] Didi Stein PA-C 06/09/2025 Interim Notes [address] [phone] Abena [place] 04/29/2025 3:40 PM EDT Interim Notes [address] [phone] 04/29/2025 3:20 PM EDT Office Visit [address] [address] Nikolai Stephenson, PharmD Jesenia Sampson from Last 3 Months Immunizations Immunization Administration [...] Mass Index 31.91 06/17/2025 3:08 PM EDT Plan of Treatment Upcoming Encounters Date Type Department Care Team (Late st Contact Info) Description 07/26/2025 10:20 AM EDT Telemedicine Visit [facility] [address] [place] [address] Didi Stein PA-C [address] [place] [address] 08/10/2025 1:00 PM EDT Interim Notes [facility] [address] [place] [address] 08/10/2025 1:20 PM EDT Office Visit [facility] [address] [place] [phone] AntisteffiNikolai, PharmD [address] [place] [address] 08/10/2025 2:10 PM EDT Interim Notes [facility] [address] [place] [address] Health Maintenance Due Date Last Done Comments [...] 09/09/2025 06/09/2025, 02/25, 11/15/2024, Additional history exists [id number] ( season) 2025 01/21/2023, 02/15/2022 Postponed from 06/28/2024 (Patient postponement) Dental Examination 09/23/2025 09/21/2024 Dental Perio Charting 09/23/2025 09/21/2024 Diabetes Foot Exam 06/09/2026 06/09/2025, 0 01/14/2024, 06/06/2023 Lipid Screening 06/09/2026 06/09/2025, 012 , 04/17/2022 Serum Creatinine 06/09/2026 06/09/2025, , 11/16/2024, Additional history exists TSH Monitoring 06/09/2026 06/09/2025, 11/29, 04/17/2022 Urine Albumin Creatinine Ratio Screening 06/09/2026 06/09/2025, 06/09/2025, 03/11/2025, Additional history exists Tobacco Screening 06/17/2026 06/17/2025, 12/23/2023 HIV Screening Completed 04/17/2022 Hepatitis C Screening Completed 04/17/2022 Alcohol and Drug Screen Completed 11/06/19, 11/29/2023, 04/16/2023, Additional history exists Depression Annual Screen Completed 12/21/2024 Imm-Pneumococcal 50+ Completed 06/09/2025 Procedures Procedure Name Priority Date/Time Associated Diagnosis Comments OTHER ORDERS SCANNED DOCUMENT 06/23/2025 3:00 AM EDT GLUCOSE, BLOOD BY GLUCOSE MONITORING DEVICE (CLIA WAIVED)POCT Routine 06/17/2025 3:07 PM EDT Type 2 diabetes mellitus with hyperglycemia, with long-term current use of insulin ([facility]) REFERRAL TO NEPHROLOGY Urgent 06/11/2025 3:00 AM EDT Stage 3b chronic kidney disease ([facility]) RFLX - REFLEXIVE URINE CULTURE Routine 06/09/2025 9:54 AM EDT ASSAY OF PROSTATE SPECIFIC ANTIGEN TOTAL Routine 06/09/2025 9:54 AM EDT Routine general medical examination at a [facility] care facility Class 1 obesity due to excess calories with serious comorbidity and body mass index (BMI) of 30.0 to 30.9 in adult Type 2 diabetes mellitus with hyperglycemia, with long-term current use of insulin ([facility]) Congestive heart failure, unspecified HF chronicity, unspecified heart failure type ([facility]) Hypothyroidism, unspecified type Stage 3 chronic kidney disease, unspecified whether stage 3a or 3b CKD ([facility]) Elevated prostate specific antigen (PSA) Mild vitamin D deficiency VITAMIN B12 & FOLATE Routine 06/09/2025 9:54 AM EDT Routine general medical examination at a health care facility Class 1 obesity due to excess calories with serious comorbidity and body mass index (BMI) of 30.0 to 30.9 in adult Type 2 diabetes mellitus with hyperglycemia, with long-term current use of insulin ([facility]) Congestive heart failure, unspecified HF chronicity, unspecified heart failure type ([facility]) Hypothyroidism, unspecified type Stage 3 chronic kidney disease, unspecified whether stage 3a or 3b CKD ([facility]) Elevated prostate specific antigen (PSA) Mild vitamin D deficiency ASSAY OF MAGNESIUM Routine 06/09/2025 9: 54 AM EDT Routine general medical examination at a [facility] Class 1 obesity due to excess calories with serious comorbidity and body mass index (BMI) of 30.0 to 30.9 in adult Type 2 diabetes mellitus with hyperglycemia, with long-term current use of insulin ([facility]) Congestive heart failure, unspecified HF chronicity, unspecified heart failure type ([facility]) Hypothyroidism, unspecified type Stage 3 chronic kidney disease, unspecified whether stage 3a or 3b CKD ([facility]) Elevated prostate specific antigen (PSA) Mild vitamin D deficiency 25 HYDROXY INCLUDES FRACTIONS IF PERFORMED Routine 06/09/2025 9:54 AM EDT Routine general medical examination at a [facility] facility Class 1 obesity due to excess calories with serious comorbidity and body mass index (BMI) of 30.0 to 30.9 in adult Type 2 diabetes mellitus with hyperglycemia, with long-term current use of insulin ([facility]) Congestive heart failure, unspecified HF chronicity, unspecified heart failure type ([facility]) Hypothyroidism, unspecified type Stage 3 chronic kidney disease, unspecified whether stage 3a or 3b CKD ([facility]) Elevated prostate specific antigen (PSA) Mild vitamin D deficiency BLOOD COUNT COMPLETE AUTO&AUTO DIFRNTL WBC Routine 06/09/2025 9:54 AM EDT Routine general medical examination at a [facility] facility Class 1 obesity due to excess calories with serious comorbidity and body mass index (BMI) of 30.0 to 30.9 in adult Type 2 diabetes mellitus with hyperglycemia, with long-term current use of insulin ([facility]) Congestive heart failure, unspecified HF chronicity, unspecified heart failure type ([facility]) Hypothyroidism, unspecified type Stage 3 chronic kidney disease, unspecified whether stage 3a or 3b CKD ([facility]) Elevated prostate specific antigen (PSA) Mild vitamin D deficiency COMPREHENSIVE METABOLIC PANEL Routine 06/09/2025 9:54 AM EDT Routine general medical examination at a [facility] care facility Class 1 obesity due to excess calories with serious comorbidity and body mass index (BMI) of 30.0 to 30.9 in adult Type 2 diabetes mellitus with hyperglycemia, with long-term current use of insulin ([facility]) Congestive heart failure, unspecified HF chronicity, unspecified heart failure type ([facility]) Hypothyroidism, unspecified type Stage 3 chronic kidney disease, unspecified whether stage 3a or 3b CKD ([facility]) Elevated prostate specific antigen (PSA) Mild vitamin D deficiency LIPID PANEL Routine 06/09/2025 9:54 AM EDT Routine general medical examination at a [facility] facility Class 1 obesity due to excess calories with serious comorbidity and body mass index (BMI) of 30.0 to 30.9 in adult Type 2 diabetes mellitus with hyperglycemia, with long-term current use of insulin ([facility]) Congestive heart failure, unspecified HF chronicity, unspecified heart failure type ([facility]) Hypothyroidism, unspecified type Stage 3 chronic kidney disease, unspecified whether stage 3a or 3b CKD ([facility]) Elevated prostate specific antigen (PSA) Mild vitamin D deficiency TSH W/RFLX FREE T4 Routine 06/09/2025 9: 54 AM EDT Routine general medical examination at a [facility] facility Class 1 obesity due to excess calories with serious comorbidity and body mass index (BMI) of 30.0 to 30.9 in adult Type 2 diabetes mellitus with hyperglycemia, with long-term current use of insulin ([facility]) Congestive heart failure, unspecified HF chronicity, unspecified heart failure type ([facility]) Hypothyroidism, unspecified type Stage 3 chronic kidney disease, unspecified whether stage 3a or 3b CKD ([facility]) Elevated prostate specific antigen (PSA) Mild vitamin D deficiency HEMOGLOBIN GLYCOSYLATED A1C Routine 06/09/2025 9:54 AM EDT Routine general medical examination at a health care facility Class 1 obesity due to excess calories with serious comorbidity and body mass index (BMI) of 30.0 to 30.9 in adult Type 2 diabetes mellitus with hyperglycemia, with long-term current use of insulin ([facility]) Congestive heart failure, unspecified HF chronicity, unspecified heart failure type ([facility]) Hypothyroidism, unspecified type Stage 3 chronic kidney disease, unspecified whether stage 3a or 3b CKD ([facility]) Elevated prostate specific antigen (PSA) Mild vitamin D deficiency URINALYSIS, COMPLETE W/REFLEX TO CULTURE Routine 06/09/2025 9:54 AM EDT Routine general medical examination at a [facility] facility Class 1 obesity due to excess calories with serious comorbidity and body mass index (BMI) of 30.0 to 30.9 in adult Type 2 diabetes mellitus with hyperglycemia, with long-term current use of insulin ([facility]) Congestive heart failure, unspecified HF chronicity, unspecified heart failure type ([facility]) Hypothyroidism, unspecified type Stage 3 chronic kidney disease, unspecified whether stage 3a or 3b CKD ([facility]) Elevated prostate specific antigen (PSA) Mild vitamin D deficiency MICROALBUMIN/CREATINI NE RATIO, URINE, RANDOM Routine 06/09/2025 9:54 AM EDT Routine general medical examination at a health care facility Class 1 obesity due to excess calories with serious comorbidity and body mass index (BMI) of 30.0 to 30.9 in adult Type 2 diabetes mellitus with hyperglycemia, with long-term current use of insulin ([facility]) Congestive heart failure, unspecified HF chronicity, unspecified heart failure type ([facility]) Hypothyroidism, unspecified type Stage 3 chronic kidney disease, unspecified whether stage 3a or 3b CKD ([facility]) Elevated prostate specific antigen (PSA) Mild vitamin D deficiency HEALTH HISTORY SCANNED DOCUMENT 06/08/2025 3:00 AM EDT REFERRAL SCANNED DOCUMENT 05/31/2025 3:00 AM EDT GLUCOSE, BLOOD BY GLUCOSE MONITORING DEVICE (CLIA WAIVED)POCT Routine 04/29/2025 3:30 PM EDT Type 2 diabetes mellitus with hyperglycemia, with long-term current use of insulin ([facility]) HEALTH HISTORY SCANNED DOCUMENT 03/31/2025 3:00 AM EDT PROPHYLAXIS - ADULT Routine 09/21/2024 1 1:00 AM EST Retained tooth root COMP ORAL EVALUATION - NEW/ESTABLISHED PATIENT Routine 09/21/2024 11:00 AM EST Retained tooth root REFERRAL TO PODIATRY Routine 01/14/2024 3:00 AM EDT Uncontrolled type 2 diabetes mellitus with hypoglycemia without coma ([facility]) REFERRAL TO DIABETIC RETINAL EXAM Routine 11/29/2023 3:00 AM EST Uncontrolled type 2 diabetes mellitus with hypoglycemia without coma ([facility]) HIV 1/2 AG & AB W/RFLX (4TH GEN) Routine 04/17/2022 9:55 AM EDT Routine lab draw HEPATITIS C AB W/RFLX HCV RNA, QT, RT PCR Routine 04/17/2022 9:55 AM EDT Routine lab draw from Last 3 Months or Most Recently Relevant to Health Maintenance Results * OTHER ORDERS SCANNED DOCUMENT (06/23/2025 3:00 AM EDT) 06/23/2025 3:00 AM EDT us Didi Stein PA-C SCAN OTHER ORDERS Final Resu lt * (ABNORMAL) GLUCOSE, BLOOD BY GLUCOSE MONITORING DEVICE (CLIA WAIVED)POCT Routine (06/17/2025 3:07 PM EDT) Only the most recent of2 resultswithin the time period is included. GLUCOSE 113(A) 70 - 100 mg/dL [facility] PO[facility] Capillary Blood Blood / Unknown 3:07 PM EDT us Nikolai GaitanD LAB - BLOOD DRAW Final Resu lt [facility] PO[facility] * REFERRAL TO NEPHROLOGY (06/11/2025 3:00 AM EDT) 06/11/2025 3:00 AM EDT Cassandra Moses PA-C REFERRAL Final Result * TSH W/RFLX FREE T4 Routine (06/09/2025 9:54 AM EDT) TSH W/REFLEX TO FT4 1.23 0.40 - 4.50 mIU/L 06/10/2025 4:58 AM EDT [facility] Blood Blood / Unknown 06/09/2025 9 :54 AM EDT 06/10/2025 2:36 AM EDT Narrative [employer] - 06/10/2025 5:20 AM EDT FASTING:NO Didi Stein PA-C LAB - BLOOD DRAW Final Resul t [employer] [address] [place] [id number], [employer] [address] [phone] * (ABNORMAL) URINALYSIS, COMPLETE W/REFLEX TO CULTURE Urine Routine (06/09/2025 9:54 AM EDT) COLOR YELLOW YELLOW 06/10/2025 3:17 AM EDT [facility] APPEARANCE CLEAR CLEAR 06/10/2025 3:17 AM EDT [facility] SPECIFIC GRAVITY 1.019 1.001 - 1.035 06/10/2025 3:17 AM EDT [facility] URINE PH 6.0 5.0 - 8.0 06/10/2025 3:17 AM EDT [facility] GLUCOSE NEGATIVE NEGATIVE 06/10/2025 3:17 AM EDT [facility] BILIRUBIN NEGATIVE NEGATIVE 06/10/2025 3:17 AM EDT [facility] KETONES NEGATIVE NEGATIVE 06/10/2025 3:17 AM EDT [facility] OCCULT BLOOD NEGATIVE NEGATIVE 06/10/2025 3:17 AM EDT [facility] URINE PROTEIN 1+(A) NEGATIVE 06/10/2025 3:17 AM EDT [employer] [facility] NITRITE NEGATIVE NEGATIVE 06/10/2025 3:17 AM EDT [employer] [facility] LEUKOCYTE ESTERASE NEGATIVE NEGATIVE 06/10/2025 3:17 AM EDT [employer] [facility] URINE LEUKOCYTES NONE SEEN 0 - 5 /HPF 06/10/2025 3:17 AM EDT [employer] [facility] RBC NONE SEEN 0 - 2 /HPF 06/10/2025 3:17 AM EDT [employer] [facility] SQUAMOUS EPITHELIAL CELLS NONE SEEN < OR = 5 /HPF 06/10/2025 3:17 AM EDT [employer] [facility] BACTERIA NONE SEEN NONE SEEN /HPF 06/10/2025 3:17 AM EDT [employer] [facility] HYALINE CAST NONE SEEN NONE SEEN /LPF 06/10/2025 3:17 AM EDT [employer] [facility] SEE NOTE SEE NOTE 06/10/2025 3:17 AM EDT [employer] [facility] Urine Urine specimen / Unknown 06/09/2025 9:54 AM EDT 06/10/2025 2:52 AM EDT [facility] - 06/10/2025 3:17 AM EDT FASTING:NO This urine was analyzed for the presence of WBC, RBC, bacteria, casts, and other formed elements. Only those elements seen were reported. . . us Didi Stein PA-C LAB URINE AMBULATORY Final R esult [facility] [employer] [address] [address], [facility] [address] [address] * RFLX - REFLEXIVE URINE CULTURE Routine (06/09/2025 9:54 AM EDT) REFLEXIVE URINE CULTURE SEE NOTE 06/10/2025 3:17 AM EDT [facility] 06/09/2025 9:54 AM EDT 06/10/2025 2:52 AM EDT [facility] - 06/10/2025 3:17 AM EDT FASTING:NO NO CULTURE INDICATED Didi Stein PA-C LAB - MICROBIOLOGY AMBULATOR Y Final Result Performing Organization Address [facility] de Phone Number [employer] [address] [place] [address], [facility] [address] [address] * (ABNORMAL) MICROALBUMIN/CREATININE RATIO, URINE, RANDOM Urine Routine (06/09/2025 9:54 AM EDT) CREATININE, RANDOM URINE 165 20 - 320 mg/dL 06/10/2025 5:52 PM EDT [facility] MICROALBUMIN 12.2 mg/dL 06/10/2025 5:52 PM EDT [facility] MICROALBUMIN/CRE ATININE RATIO, RANDOM URINE 74(H) <30 mg/g creat 06/10/2025 5:52 PM EDT [facility] Urine Urine specimen / Unknown 06/09/2025 9:54 AM EDT 06/10/2025 2:07 AM EDT Narrative [employer] - 06/10/2025 5:58 PM EDT FASTING:NO Reference [...] AMBULATORY Final R esult Performing Organization Address [facility]/ZIP Co de Phone Number [facility] [address] [address], [facility] [address] [address] * VITAMIN B12 & FOLATE Routine (06/09/2025 9:54 AM EDT) VITAMIN B12 391 200 - 1,100 pg/mL 06/10/2025 4:58 AM EDT [facility] FOLATE, SERUM 8.0 ng/mL 06/10/2025 4:58 AM EDT [facility] Blood Blood / Unknown 06/09/2025 9 :54 AM EDT 06/10/2025 2:36 AM EDT Narrative [facility] - 06/10/2025 5:20 AM EDT FASTING:NO . [...] LAB - BLOOD DRAW Final Resul t [employer] [address] [place] [address], [facility] [address] [address] * (ABNORMAL) BLOOD COUNT COMPLETE AUTO&AUTO DIFRNTL WBC Routine (06/09/2025 9:54 AM EDT) WHITE BLOOD CELL COUNT 8.3 3.8 - 10.8 Thousand/ uL 06/10/2025 3:49 AM EDT [facility] RED BLOOD CELL COUNT 4.47 4.20 - 5.80 Million/u L 06/10/2025 3:49 AM EDT [facility] HEMOGLOBIN 12.6(L) 13.2 - 17.1 g/dL 06/10/2025 3:49 AM EDT [facility] HEMATOCRIT 40.4 38.5 - 50.0 % 06/10/2025 3:49 AM EDT [facility] MCV 90.4 80.0 - 100.0 fL 06/10/2025 3:49 AM [facility] MCH 28.2 27.0 - 33.0 pg 06/10/2025 3:49 AM [facility] MCHC 31.2(L) 32.0 - 36.0 g/dL 06/10/2025 3:49 AM EDT [facility] RDW 15.4(H) 11.0 - 15.0 % 06/10/2025 3:49 AM EDT [facility] PLATELET COUNT 353 140 - 400 Thousand/ uL 06/10/2025 3:49 AM EDT [facility] MPV 9.5 7.5 - 12.5 fL 06/10/2025 3:49 AM EDT [facility] ABSOLUTE NEUTROPHILS 4,723 1,500 - 7,800 cells/uL 06/10/2025 3:49 AM EDT [facility] ABSOLUTE LYMPHOCYTES 2,150 850 - 3,900 cells/uL 06/10/2025 3:49 AM EDT [facility] ABSOLUTE MONOCYTES 481 200 - 950 cells/uL 06/10/2025 3:49 AM EDT [facility] ABSOLUTE EOSINOPHILS 896(H) 15 - 500 cells/uL 06/10/2025 3:49 AM EDT [facility] ABSOLUTE BASOPHILS 50 0 - 200 cells/uL 06/10/2025 3:49 AM EDT [facility] NEUTROPHILS PCT 56.9 % 3:49 AM EDT [facility] LYMPHOCYTES 25.9 % 06/10/2025 3:49 AM EDT [facility] MONOCYTES 5.8 % 06/10/2025 3:49 AM EDT [facility] EOSINOPHILS 10.8 % 06/10/2025 3:49 AM EDT [facility] BASOPHILS 0.6 % 06/10/2025 3:49 AM EDT [facility] Blood Blood / Unknown 06/09/2025 9 :54 AM EDT 06/10/2025 2:39 AM EDT Narrative [facility] - 06/10/2025 3:54 AM EDT FASTING:NO For adults, a slight decrease in the calculated MCHC value (in the range of 30 to 32 g/dL) is most likely not clinically significant; however, it should be interpreted with caution in correlation with other red cell parameters and the patient's clinical condition. us Didi Stein PA-C LAB - BLOOD DRAW Final Resul t [facility] [address] [address], [place] [facility] [address] [address] * (ABNORMAL) ASSAY OF PROSTATE SPECIFIC ANTIGEN TOTAL Routine (06/09/2025 9:54 AM EDT) PSA, TOTAL 25.31(H) < OR = 4.00 ng/mL 06/10/2025 4:58 AM EDT [facility] Blood Blood / Unknown 06/09/2025 9 :54 AM EDT 06/10/2025 2:36 AM EDT [facility] [employer] - 06/10/2025 5:20 AM EDT FASTING:NO The [...] DRAW Final Resul t Performing Organization Address City/[facility]/ZIP Co de Phone Number [facility] [address] [address], [facility] [address] [address] * ASSAY OF MAGNESIUM Routine (06/09/2025 9:54 AM EDT) MAGNESIUM 2.1 1.5 - 2.5 mg/dL 06/10/2025 3:49 AM EDT [facility] Blood Blood / Unknown 06/09/2025 9 :54 AM EDT 06/10/2025 2:36 AM EDT Michelle [facility] - 06/10/2025 3:54 AM EDT FASTING:NO Didi Stein PA-C LAB - BLOOD DRAW Final Resul t Performing Organization Address City/[facility]/ZIP Co de Phone Number [facility] [address] [address], [place] [facility] [address] [place] [phone] * (ABNORMAL) HEMOGLOBIN GLYCOSYLATED A1C Routine (06/09/2025 9:54 AM EDT) [facility] HEMOGLOBIN A1C 8.1(H) <5.7 % 06/10/2025 4:00 PM EDT [facility] Blood Blood / Unknown 06/09/2025 9 :54 AM EDT 06/10/2025 2:39 AM EDT [id number] - 06/10/2025 4:05 PM EDT FASTING:NO For [...] for diagnosis of diabetes for children. . Didi Stein PA-C LAB - BLOOD DRAW Final Resul t [employer] [address] [place] [address], [employer] [address] [place] [phone] * (ABNORMAL) 25 HYDROXY INCLUDES FRACTIONS IF PERFORMED Routine (06/09/2025 9:54 AM EDT) [facility] VITAMIN D, 25-OH, TOTAL 28(L) 30 - 100 ng/mL 06/10/2025 4:58 AM EDT [facility] Blood Blood / Unknown 06/09/2025 9 :54 AM EDT 06/10/2025 2:36 AM EDT [id number] - 06/10/2025 5:20 AM EDT FASTING:NO Vitamin D Status 25-OH Vitamin D: . Deficiency: <20 ng/mL Insufficiency: 20 - 29 ng/mL Optimal: > or = 30 ng/mL . For 25-OH Vitamin D testing on patients on D2-supplementation and patients for whom quantitation of D2 and D3 fractions is required, the QuestAssureD(TM) 25-OH VIT D, (D2,D3), LC/MS/MS is recommended: order code [id number] (patients >2yrs). . See Note 1 . Note 1 . For additional information, please refer to http://education.Sentri.Renrenmoney/faq/JVF730 (This link is being provided for informational/ educational purposes only.) Didi Stein PA-C LAB - BLOOD DRAW Final Resul t [facility] [employer] [address] [place] [address], [facility] [address] [address] * (ABNORMAL) LIPID PANEL Routine (06/09/2025 9:54 AM EDT) [facility] CHOLESTEROL, TOTAL 236(H) <200 mg/dL 06/10/2025 3:49 AM EDT [facility] HDL CHOLESTEROL 44 > OR = 40 mg/dL 06/10/2025 3:49 AM EDT [facility] TRIGLYCERIDES 190(H) <150 mg/dL 06/10/2025 3:49 AM EDT [facility] LDL-CHOLESTEROL 157(H) mg/dL (calc) 06/10/2025 3:49 AM EDT [facility] CHOL/HDLC RATIO 5.4(H) <5.0 (calc) 06/10/2025 3:49 AM EDT [facility] NON-HDL CHOLESTEROL 192(H) <130 mg/dL (calc) 06/10/2025 3:49 AM EDT [facility] Blood Blood / Unknown 06/09/2025 9 :54 AM EDT 06/10/2025 2:36 AM EDT Narrative [facility] - 06/10/2025 3:54 AM EDT FASTING:NO Reference [...] of LDL-C. Gerald SS et al. GIOVANNA. 2013;310(81): 2700-7187 (http://education.Yvolver/faq/FJL949) For patients with diabetes plus 1 major ASCVD risk factor, treating to a non-HDL-C goal of <100 mg/dL (LDL-C of <70 mg/dL) is considered a therapeutic option. Didi Stein PA-C LAB - BLOOD DRAW Final Resul t [facility] [address] [address], [facility] [address] [place] [address] * (ABNORMAL) COMPREHENSIVE METABOLIC PANEL Routine (06/09/2025 9:54 AM EDT) GLUCOSE 63(L) 65 - 139 mg/dL 06/10/2025 3:49 AM [employer] UREA NITROGEN (BUN) 16 7 - 25 mg/dL 06/10/2025 3:49 AM [facility] CREATININE (blood) 1.50(H) 0.70 - 1.35 mg/dL 06/10/2025 3:49 AM [employer] [employer] [facility] EGFR 51(L) > OR = 60 mL/min/1. 73m2 06/10/2025 3:49 AM [facility] BUN/CREATININE RATIO 11 6 - 22 (calc) 06/10/2025 3:49 AM EDT [facility] SODIUM 139 135 - 146 mmol/L 06/10/2025 3:49 AM [employer] POTASSIUM 4.5 3.5 - 5.3 mmol/L 06/10/2025 3:49 AM [employer] [employer] [facility] CHLORIDE 104 98 - 110 mmol/L 06/10/2025 3:49 AM [employer] [employer] [facility] CARBON DIOXIDE 27 20 - 32 mmol/L 06/10/2025 3:49 AM [facility] CALCIUM 8.8 8.6 - 10.3 mg/dL 06/10/2025 3:49 AM EDT [facility] PROTEIN, TOTAL 7.2 6.1 - 8.1 g/dL 06/10/2025 3:49 AM EDT [facility] ALBUMIN 3.8 3.6 - 5.1 g/dL 06/10/2025 3:49 AM EDT [facility] GLOBULIN 3.4 1.9 - 3.7 g/dL (calc) 06/10/2025 3:49 AM EDT [facility] ALBUMIN/GLOBULI N RATIO 1.1 1.0 - 2.5 (calc) 06/10/2025 3:49 AM EDT [facility] BILIRUBIN, TOTAL 0.3 0.2 - 1.2 mg/dL 06/10/2025 3:49 AM EDT [facility] ALKALINE PHOSPHATASE 104 35 - 144 U/L 06/10/2025 3:49 AM EDT [facility] AST 13 10 - 35 U/L 06/10/2025 3:49 AM EDT [facility] ALT 15 9 - 46 U/L 06/10/2025 3:49 AM EDT [facility] Blood Blood / Unknown 06/09/2025 9 :54 AM EDT 06/10/2025 2:36 AM EDT Narrative [employer] - 06/10/2025 3:54 AM EDT FASTING:NO . Non-fasting reference interval . Didi Stein PA-C LAB - BLOOD DRAW Final Resul t [facility] [address] [address], [employer] [address] [address] * HEALTH HISTORY SCANNED DOCUMENT (06/08/2025 3:00 AM EDT) Only the most recent of2 resultswithin the time period is included. 06/08/2025 3:00 AM EDT [facility] Provider Default SCAN OTHER ORDERS Final Re sult * REFERRAL SCANNED DOCUMENT (05/31/2025 3:00 AM EDT) 05/31/2025 3:00 AM EDT Result [facility] [place] S&Tna PA-C SCAN REFERRAL Final Result * REFERRAL TO PODIATRY (01/14/2024 3:00 AM EDT) 01/14/2024 3:00 AM EDT [place] [facility] PA-C REFERRAL Final Result * REFERRAL FOR DIABETIC RETINAL EXAM (11/29/2023 3:00 AM EST) 11/29/2023 3:00 AM EST [place] [employer] PA-C REFERRAL Final Result * Hep C Antibody with Reflex HCV RNA (04/17/2022 9:55 AM EDT) HEPATITIS C ANTIBODY NON-REACT ANTHONY NON-REACT ANTHONY [facility] SIGNAL TO CUT-OFF 0.11 <1.00 [facility] Comment: HCV antibody was non-reactive. There is no laboratory evidence of HCV infection. In most cases, no further action is required. However, if recent HCV exposure is suspected, a test for HCV RNA (test code 60700) is suggested. For additional information please refer to http://education.Cirqle.nl.Renrenmoney/faq/IKO17f2 (This link is being provided for informational/ educational purposes only.) Blood Blood / Unknown 04/17/2022 9 :55 AM EDT 04/17/2022 9:56 AM EDT Result [facility] [place] S[employer]Tna PA-C LAB - BLOOD DRAW Edited Resu lt - Final [facility] [address] [address], [facility] [address] [address] * HIV Ag & Ab with Reflex Western Blot (04/17/2022 9:55 AM EDT) HIV AG/AB, 4TH GEN NON-REAC TIVE NON-REAC TIVE [facility] Comment: HIV-1 antigen and HIV-1/HIV-2 antibodies were [...] purpose. For additional information please refer to http://education.AMT [employer])/faq/TBD606 (This link is being provided for informational/ educational purposes only.) The performance of this assay has not been clinically validated in patients less than 2 years old. 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
[2025-06-25 17:26] LABS: Hematocrit 36.8 % (42.0-52.0); Hemoglobin 12.0 g/dl (14.0-18.0); Imm Gran Abs Auto 0.03 X10*3/uL (0.00-0.03); Imm Gran Pct Auto 0.4 % (0.0-0.4); Lymphocytes Absolute Auto 2.0 X10*3/uL (1.2-4.9); Mean Corpuscular HGB Conc 32.6 g/dl (31.0-36.0); Mean Corpuscular Hemoglobin 28.0 pg (27.0-33.0); Mean Corpuscular Volume 86.0 fL (80.0-98.0); NRBC Abs Auto 0.000 X10*3/uL (0.0-0.012); NRBC Pct Auto 0.0 /100WBC (0.0-0.2); Platelet Count 284 X10*3/uL (160-400); Red Blood Count 4.28 X10*6/uL (4.60-5.80); White Blood Count 8.3 X10*3/uL (4.8-10.8)
[2025-06-25 18:35] LABS: Alanine Aminotransferase 34 U/L (0-40); Albumin Level 3.8 g/dL (3.5-5.0); Alkaline Phosphatase 159 U/L (39-117); Anion Gap 14 (12-20); Aspartate Amino Transferase 42 U/L (5-37); Blood Urea Nitrogen 24 mg/dL (9-16); Calcium 8.7 mg/dL (8.4-10.2); Carbon Dioxide 24 mmol/L (22-29); Chloride 105 mmol/L (96-108); Estimated Glomerular Filt Rate 36; Potassium 4.4 mmol/L (3.3-5.1); Sodium 139 mmol/L (135-145); Total Protein 7.7 g/dL (6.5-8.0)
== END 2025-06-25 17:11 | disposition home or self-care (01) ==
LOC: HO.HVNA 17:10
PROVIDERS: Visit Provider Internal Medicine
DX: M86.172 Other acute osteomyelitis, left ankle and foot (principal)
CPT/HCPCS: 36415; 80053; 82550; 85025

== ENCOUNTER 2025-06-30 13:55 | Outpatient (AMB) | payer OTHER, SELFPAY ==
[2025-06-30 15:07] VITALS: BP 132/78; PULSE 82; O2SAT 98
--- NOTE | 2025-06-30 15:07 | MHC.OFFVIS ---
Vital Signs 06/30/25 15:07 Height 6 ft 2 in BP 132/78 Pulse 82 Pulse Oximetry (%) 98 Intake Visit Reasons: 3 weeks F/U Left Great Toe OM Apparel Designer Required: Yes Apparel Designer Name: Tung,ID :[id number] Allergies No Known Drug Allergies Allergy (Verified 06/30/25 15:08) Unknown HPI HPI 3 weeks F/U Left Great Toe OM: Details: He is doing well. He is tired of taking antibiotics He has no concerns. 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) Patient Tobacco Use Status: Never used Tobacco e-Cigarette/Vaping Use: Never Used service: No Review of Systems Const All systems reviewed & are unremarkable except as noted in HPI and below Physical Exam Exam Exam: Vital Signs: Last Vital Signs Pulse 82 06/30/25 15:07 BP 132/78 06/30/25 15:07 Pulse Ox 98 06/30/25 15:07 Const General: cooperative Orientation/consciousness: patient oriented x3 HEENT Head: Yes normal to inspection Mouth: Normal oral and palatal mucosa present Eyes General: appearance normal, both eyes and all related structures Pupils: Equal, round and reactive pupils present Resp Effort & Inspection: normal respiratory effort Cardio Rate: regular rate Rhythm: regular rhythm GI Palpation (GI): Soft to palpation and nontender General: Yes no CVA tenderness Back/Spine/Pelvis Back: no CVA tenderness Skin General skin exam: no rashes or lesions noted Neuro General: patient oriented x3 Cranial nerves: Yes CN's II-XII intact bilaterally and Yes Equal, round and reactive pupils present Extrem General: Yes normal to inspection Psych Appearance: grossly normal Assessment & Plan Assessment & Plan (1) Osteomyelitis of great toe of left foot: Comment: He is doing well. Code(s): M86.9 - Osteomyelitis, unspecified Category: Medical Plan Observe See prn need. Coding Level of Care Code Est Pt Level 3 (33425) Diagnoses Osteomyelitis of great toe of left foot M86.9
--- OUTSIDE RECORDS SUMMARY | 2025-06-30 16:09 | XMS_ITS | Clinical Summary ---
Author Organization [facility] Address [address] [place] [address] Care Team Providers Care Soil Conservationist Name Role Phone Cassandra Moses PA-C Primary [...] complication, with long-term current use of insulin ([facility]),Essent ial (primary) hypertension,At risk for falling,Diabeti c feet ([facility]) by miscellaneous route daily. Diabetic shoes [...] complication, with long-term current use of insulin ([facility]),Essent ial (primary) hypertension,At risk for falling,Diabeti c feet ([facility]) by miscellaneous route daily. Diabetic shoes size 11.5 for daily use. Diagnosis diabetes, obesity. Length of need 99 months 1 Each 10/27/20 24 Active pen needle, diabetic 31 gauge x 5/16 ndleIndications :Type 2 diabetes mellitus with hyperglycemia, with long-term current use of insulin ([facility]) To inject insulin 4 times daily. 100 Each 11/06/19 25 Active blood-glucose sensor (FREESTYLE MAIAD 3 PLUS SENSOR) deviIndications :Type 2 diabetes mellitus with hyperglycemia, with long-term current use of insulin ([facility]) Place 1 sensor to back of upper arm every 15 days. Use to monitor blood sugar continuously (Freestyle Maida 3 Plus) 2 Each 11/20/19 25 Active blood-glucose meter,continuou s (FREESTYLE MAIDA 3 READER) miscIndications :Type 2 diabetes mellitus with hyperglycemia, with long-term current use of insulin ([facility]) 1 Units by miscellaneous route daily. To check BS daily. 1 Each 11/20/19 25 Active blood sugar diagnostic stripsIndicatio ns:Type 2 diabetes mellitus with hyperglycemia, with long-term current use of insulin ([facility]) 1 Each 4 (four) times daily [...] unspecified HF chronicity, unspecified heart failure type ([facility]) TOME 1 TABLETA POR VIA ORAL DOS VECES AL ADELSO 180 Tablet 1 02/02/20 25 Active torsemide (DEMADEX) 20 mg tabletIndicatio ns:Congestive heart failure, unspecified HF chronicity, unspecified heart failure type ([facility]) TAKE 2 TABLETS POR VIA ORAL DOS VECES AL ADELSO 360 Tablet 1 04/07/20 25 Active pantoprazole (PROTONIX) 40 mg EC tabletIndicatio ns:Gastroesopha geal reflux disease without esophagitis TOME 1 TABLETA POR VIA ORAL TODOS [place] 90 Tablet 1 04/07/20 25 Active carvediloL (COREG) 12.5 mg tabletIndicatio ns:Congestive heart failure, unspecified HF chronicity, unspecified heart failure type ([facility]),Hypert ension, essential TOME LLOYD TABLETA 2 VECES AL ADELSO CON LAS COMIDAS 180 Tablet 1 04/07/20 25 Active levothyroxine 50 mcg tabletIndicatio ns:Hypothyroidi sm, unspecified type TOME 1 TABLETA POR VIA ORAL TODOS [place] PO[place]. 84 Tablet 2 04/14/20 25 Active dulaglutide (TRULICITY) 1.5 mg/0.5 mL pen injectorIndicat ions:Type 2 diabetes mellitus with hyperglycemia, with long-term current use of insulin ([facility]) Inject 1.5 mg into the skin once a week. 2 mL 2 05/03/20 25 Active atorvastatin (LIPITOR) 80 mg tabletIndicatio ns:Essential (primary) hypertension Take 1 Tablet by mouth nightly at bedtime. 90 Tablet 1 06/09/20 25 Active insulin lispro 100 unit/mL injection penIndications: Type 2 diabetes mellitus with hyperglycemia, with long-term current use of insulin ([facility]) SLIDING SCALE 3 times a day 100-149: 15 units, 150-199: 18 units, 200-249: 21 units, 250-299: 24 units, 300-349: 27 units, 350-399: 30 units.. 15 mL 1 06/17/20 25 Active TRESIBA FLEXTOUCH U-100 100 unit/mL (3 mL)Indications: Type 2 diabetes mellitus with hyperglycemia, with long-term current use of insulin ([facility]) INJECT 32 UNITS INTO THE SKIN [...] to [facility]. Fax - [phone]. BMI 32.56 1 Each 11/29/19 24 025 [...] TWO TIMES A DAY Prescribed By: IGGY BEDOLLA,[facility] 11/05/19 24 025 Disconti nued(Out dated-Re moved from Med List (E-Cance l Not Sent)) atorvastatin (LIPITOR) 80 mg tabletIndicatio ns:Type 2 diabetes mellitus without complication, with long-term current use of insulin ([facility]),Essent ial (primary) hypertension Take 1 Tablet by mouth nightly at bedtime 90 Tablet 1 12/25/19 24 025 Disconti nued(Reo rder (E-Cance l Not Sent)) insulin lispro 100 unit/mL injection penIndications: Uncontrolled type 2 diabetes mellitus with hypoglycemia without coma ([facility]) SLIDING SCALE 3 times a day 100-149: 15 units, 150-199: 18 units, 200-249: 21 units, 250-299: 24 units, 300-349: 27 units, 350-399: 30 units. 15 mL 1 12/12/19 25 025 Disconti nued(Reo rder (E-Cance l Not Sent)) TRESIBA FLEXTOUCH U-100 100 unit/mL (3 mL)Indications: Uncontrolled type 2 diabetes mellitus with hypoglycemia without coma ([facility]) INJECT 32 UNITS INTO THE SKIN [...] disorder 05/09/2022 Constipation 04/18/2022 Exacerbation of asthma ([facility]) 04/18/2022 Gout 04/18/2022 Hypothyroidism 04/18/2022 Type 2 diabetes mellitus wit h hyperglycemia, with long-term current use of insulin ([facility]) 04/18/2022 Congestive heart failure ([facility]) 022 Elevated prostate specific antigen (PSA) 022 Overview (06/02/2025): 01/25/2025 - [facility] - Dx: Elevated PSA - F/u with MRI of prostate - TRUSP bx w f/u Pneumonia due to coronavirus disease 2019 (CODE) 02/04/2022 Acute kidney failure, unspecified ([facility] [place] [place] V24) 01/31/2022 Essential (primary) hypertension 01/31/2022 Stage 3 chronic kidney disease ([facility]) 0 01/31/2022 Encounters Date Type Department Care Team Description 06/17/2025 3:00 PM EDT Office Visit [address] [phone] Nikolai Stephenson, PharmD Magali Faust 06/09/2025 9:00 AM EDT Office Visit [address] [address] Didi Stein PA-C 06/09/2025 Interim Notes [address] [address] 04/29/2025 3:40 PM EDT Interim Notes [address] [address] 04/29/2025 3:20 PM EDT Office Visit [address] [phone] Nikolai Stephenson, PharmD Jesenia Sampson from Last [...] Description 07/26/2025 10:20 AM EDT Telemedicine Visit [facility] [address] [place] [address] Didi Stein PA-C [address] [place] [address] 08/10/2025 1:00 PM EDT Interim Notes [facility] [address] [place] [address] 08/10/2025 1:20 PM EDT Office Visit [facility] [address] [place] [phone] AntisteffiNikolai, PharmD [address] [place] [address] 08/10/2025 2:10 PM EDT Interim Notes [facility] [address] [place] [address] Health Maintenance Due Date Last Done Comments Anxiety Screening 1960 Dental FMX/Pano 1960 Medicare Annual Wellness Visit 02/22/1978 Imm-DTaP/Tdap/Td (1 - Tdap) 02/22/1979 CT Colonography 02/22/2005 Colonoscopy 02/22/2005 Colorectal Cancer Screening 02/22/2005 FIT/gFOBT 02/22/2005 Fecal DNA 02/22/2005 Flexible Sigmoidoscopy 02/22/2005 Imm-Zoster, Recombinant (1 of 2) 02/22/2010 Retinopathy Screening 11/29/2024 11/29/2023 Abdominal Aortic Aneurysm Screening 02/22/2025 Falls Prevention 02/22/2025 Dental Prophy 03/23/2025 09/21/2024 [id number] ( season) 2025 023, 02/15/2022 Imm-Influenza (#1) 2025 07/21/2024 Hemoglobin A1c 09/09/2025 06/09/2025, 0502/2025, 11/15/2024, Additional history exists Dental Examination 09/23/2025 09/21/2024 Dental Perio Charting 09/23/2025 09/21/2024 Diabetes Foot Exam 06/09/2026 06/09/2025, 0 01/14/2024, 06/06/2023 Lipid Screening 06/09/2026 06/09/2025, 10/29, 04/17/2022 Serum Creatinine 06/09/2026 06/09/2025, , 11/16/2024, Additional history exists TSH Monitoring 06/09/2026 06/09/2025, 11/29, 04/17/2022 Urine Albumin Creatinine Rat io Screening 06/09/2026 06/09/2025, 06/09/2025, 03/11/2025, Additional history [...] hyperglycemia, with long-term current use of insulin ([facility]) REFERRAL TO NEPHROLOGY Urgent 06/11/2025 3:00 AM EDT Stage 3b chronic kidney disease ([facility]) RFLX - REFLEXIVE URINE CULTURE Routine [...] hyperglycemia, with long-term current use of insulin ([facility]) Congestive heart failure, unspecified HF chronicity, unspecified heart failure type ([facility]) Hypothyroidism, unspecified type Stage 3 chronic kidney disease, unspecified whether stage 3a or 3b CKD ([facility]) Elevated prostate specific antigen (PSA) Mild vitamin D deficiency VITAMIN B12 & FOLATE Routine 06/09/2025 9:54 AM EDT Routine general medical examination at a health care facility Class 1 obesity due to excess calories with serious comorbidity and body mass index (BMI) of 30.0 to 30.9 in adult Type 2 diabetes mellitus with hyperglycemia, with long-term current use of insulin ([facility]) Congestive heart failure, unspecified HF chronicity, unspecified heart failure type ([facility]) Hypothyroidism, unspecified type Stage 3 chronic kidney disease, unspecified whether stage 3a or 3b CKD ([facility]) Elevated prostate specific antigen (PSA) Mild vitamin D deficiency ASSAY OF MAGNESIUM Routine 06/09/2025 9: 54 AM EDT Routine general medical examination at a [facility] Class 1 obesity due to excess calories with serious comorbidity and body mass index (BMI) of 30.0 to 30.9 in adult Type 2 diabetes mellitus with hyperglycemia, with long-term current use of insulin ([facility]) Congestive heart failure, unspecified HF chronicity, unspecified heart failure type ([facility]) Hypothyroidism, unspecified type Stage 3 chronic kidney disease, unspecified whether stage 3a or 3b CKD ([facility]) Elevated prostate specific antigen (PSA) Mild vitamin D deficiency 25 HYDROXY INCLUDES FRACTIONS IF PERFORMED Routine 06/09/2025 9:54 AM EDT [facility] Class 1 obesity due to excess calories with serious comorbidity and body mass index (BMI) of 30.0 to 30.9 in adult Type 2 diabetes mellitus with hyperglycemia, with long-term current use of insulin ([facility]) Congestive heart failure, unspecified HF chronicity, unspecified heart failure type ([facility]) Hypothyroidism, unspecified type Stage 3 chronic kidney disease, unspecified whether stage 3a or 3b CKD ([facility]) Elevated prostate specific antigen (PSA) Mild vitamin D deficiency BLOOD COUNT COMPLETE AUTO&AUTO DIFRNTL WBC Routine 06/09/2025 9:54 AM EDT Routine general medical examination at a [facility] Class 1 obesity due to excess calories with serious comorbidity and body mass index (BMI) of 30.0 to 30.9 in adult Type 2 diabetes mellitus with hyperglycemia, with long-term current use of insulin ([facility]) Congestive heart failure, unspecified HF chronicity, unspecified heart failure type ([facility]) Hypothyroidism, unspecified type Stage 3 chronic kidney disease, unspecified whether stage 3a or 3b CKD ([facility]) Elevated prostate specific antigen (PSA) Mild vitamin D deficiency COMPREHENSIVE METABOLIC PANEL Routine 06/09/2025 9:54 AM EDT Routine general medical examination at a [facility] care facility Class 1 obesity due to excess calories with serious comorbidity and body mass index (BMI) of 30.0 to 30.9 in adult Type 2 diabetes mellitus with hyperglycemia, with long-term current use of insulin ([facility]) Congestive heart failure, unspecified HF chronicity, unspecified heart failure type ([facility]) Hypothyroidism, unspecified type Stage 3 chronic kidney disease, unspecified whether stage 3a or 3b CKD ([facility]) Elevated prostate specific antigen (PSA) Mild vitamin D deficiency LIPID PANEL Routine 06/09/2025 9:54 AM EDT Routine [facility] medical [facility] Class 1 obesity due to excess calories with serious comorbidity and body mass index (BMI) of 30.0 to 30.9 in adult Type 2 diabetes mellitus with hyperglycemia, with long-term current use of insulin ([facility]) Congestive heart failure, unspecified HF chronicity, unspecified heart failure type ([facility]) Hypothyroidism, unspecified type Stage 3 chronic kidney disease, unspecified whether stage 3a or 3b CKD ([facility]) Elevated prostate specific antigen (PSA) Mild vitamin D deficiency TSH W/RFLX FREE T4 Routine 06/09/2025 9: 54 AM EDT Routine general [facility] Class 1 obesity due to excess calories with serious comorbidity and body mass index (BMI) of 30.0 to 30.9 in adult Type 2 diabetes mellitus with hyperglycemia, with long-term current use of insulin ([facility]) Congestive heart failure, unspecified HF chronicity, unspecified heart failure type ([facility]) Hypothyroidism, unspecified type Stage 3 chronic kidney disease, unspecified whether stage 3a or 3b CKD ([facility]) Elevated prostate specific antigen (PSA) Mild vitamin D deficiency HEMOGLOBIN GLYCOSYLATED A1C Routine 06/09/2025 9:54 AM EDT Routine general medical examination at a health care facility Class 1 obesity due to excess calories with serious comorbidity and body mass index (BMI) of 30.0 to 30.9 in adult Type 2 diabetes mellitus with hyperglycemia, with long-term current use of insulin ([facility]) Congestive heart failure, unspecified HF chronicity, unspecified heart failure type ([facility]) Hypothyroidism, unspecified type Stage 3 chronic kidney disease, unspecified whether stage 3a or 3b CKD ([facility]) Elevated prostate specific antigen (PSA) Mild vitamin D deficiency URINALYSIS, COMPLETE W/REFLEX TO CULTURE Routine 06/09/2025 9:54 AM EDT Routine [facility] Class 1 obesity due to excess calories with serious comorbidity and body mass index (BMI) of 30.0 to 30.9 in adult Type 2 diabetes mellitus with hyperglycemia, with long-term current use of insulin ([facility]) Congestive heart failure, unspecified HF chronicity, unspecified heart failure type ([facility]) Hypothyroidism, unspecified type Stage 3 chronic kidney disease, unspecified whether stage 3a or 3b CKD ([facility]) Elevated prostate specific antigen (PSA) Mild vitamin D deficiency MICROALBUMIN/CREATINI NE RATIO, URINE, RANDOM Routine 06/09/2025 9:54 AM EDT Routine general medical examination at a [facility] care facility Class 1 obesity due to excess calories with serious comorbidity and body mass index (BMI) of 30.0 to 30.9 in adult Type 2 diabetes mellitus with hyperglycemia, with long-term current use of insulin ([facility]) Congestive heart failure, unspecified HF chronicity, unspecified heart failure type ([facility]) Hypothyroidism, unspecified type Stage 3 chronic kidney disease, unspecified whether stage 3a or 3b CKD ([facility]) Elevated prostate specific antigen (PSA) Mild vitamin D deficiency HEALTH HISTORY SCANNED DOCUMENT 06/08/2025 3:00 AM EDT REFERRAL SCANNED DOCUMENT 05/31/2025 3:00 AM EDT GLUCOSE, BLOOD BY GLUCOSE MONITORING DEVICE (CLIA WAIVED)POCT Routine 04/29/2025 3:30 PM EDT Type 2 diabetes mellitus with hyperglycemia, with long-term current use of insulin ([facility]) HEALTH HISTORY SCANNED DOCUMENT 03/31/2025 3:00 AM EDT PROPHYLAXIS - ADULT Routine 09/21/2024 1 1:00 AM EST Retained tooth root COMP ORAL EVALUATION - NEW/ESTABLISHED PATIENT Routine 09/21/2024 11:00 AM EST Retained tooth root REFERRAL TO PODIATRY Routine 01/14/2024 3:00 AM EDT Uncontrolled type 2 diabetes mellitus with hypoglycemia without coma ([facility]) REFERRAL TO DIABETIC RETINAL EXAM Routine 11/29/2023 3:00 AM EST Uncontrolled type 2 diabetes mellitus with hypoglycemia without coma ([facility]) HIV 1/2 AG & AB W/RFLX (4TH GEN) Routine 04/17/2022 9:55 AM EDT Routine lab draw HEPATITIS C AB W/RFLX HCV RNA, QT, RT PCR Routine 04/17/2022 9:55 AM EDT Routine lab draw from Last 3 Months or Most Recently Relevant to Health Maintenance Results * OTHER ORDERS SCANNED DOCUMENT (06/23/2025 3:00 AM EDT) 06/23/2025 3:00 AM EDT Didi Stein PA-C SCAN OTHER ORDERS Final Resu lt * (ABNORMAL) GLUCOSE, BLOOD BY GLUCOSE MONITORING DEVICE (CLIA WAIVED)POCT Routine (06/17/2025 3:07 PM EDT) Only the most recent of2 resultswithin the time period is included. GLUCOSE 113(A) 70 - 100 mg/dL [facility] PO[facility] Capillary Blood Blood / Unknown 3:07 PM EDT us Nikolai Stephenson PharmD LAB - BLOOD DRAW Final Resu lt [facility] * REFERRAL TO NEPHROLOGY (06/11/2025 3:00 AM EDT) 06/11/2025 3:00 AM EDT Cassandra Moses PA-C REFERRAL Final Result * TSH W/RFLX FREE T4 Routine (06/09/2025 9:54 AM EDT) TSH W/REFLEX TO FT4 1.23 0.40 - 4.50 mIU/L 06/10/2025 4:58 AM EDT [facility] Blood Blood / Unknown 06/09/2025 9 :54 AM EDT 06/10/2025 2:36 AM EDT [facility] - 06/10/2025 5:20 AM EDT FASTING:NO Didi Stein PA-C LAB - BLOOD DRAW Final Resul t [employer]([facility] [address] [id number], [employer] [address] [address] * (ABNORMAL) URINALYSIS, COMPLETE W/REFLEX TO CULTURE Urine Routine (06/09/2025 9:54 AM EDT) COLOR YELLOW YELLOW 06/10/2025 3:17 AM EDT [employer] APPEARANCE CLEAR CLEAR 06/10/2025 3:17 AM EDT [employer] SPECIFIC GRAVITY 1.019 1.001 - 1.035 06/10/2025 3:17 AM EDT [employer] URINE PH 6.0 5.0 - 8.0 06/10/2025 3:17 AM EDT [employer] [place] [employer] GLUCOSE NEGATIVE NEGATIVE 06/10/2025 3:17 AM EDT [employer] BILIRUBIN NEGATIVE NEGATIVE 06/10/2025 3:17 AM EDT [employer] [place] [employer] KETONES NEGATIVE NEGATIVE 06/10/2025 3:17 AM EDT [employer] OCCULT BLOOD NEGATIVE NEGATIVE 06/10/2025 3:17 AM EDT [employer] URINE PROTEIN 1+(A) NEGATIVE 06/10/2025 3:17 AM EDT [employer] NITRITE NEGATIVE NEGATIVE 06/10/2025 3:17 AM EDT [employer] LEUKOCYTE ESTERASE NEGATIVE NEGATIVE 06/10/2025 3:17 AM EDT [employer] URINE LEUKOCYTES NONE SEEN 0 - 5 /HPF 06/10/2025 3:17 AM EDT [employer] RBC NONE SEEN 0 - 2 /HPF 06/10/2025 3:17 AM EDT [employer] SQUAMOUS EPITHELIAL CELLS NONE SEEN < OR = 5 /HPF 06/10/2025 3:17 AM EDT [employer] BACTERIA NONE SEEN NONE SEEN /HPF 06/10/2025 3:17 AM EDT [employer] HYALINE CAST NONE SEEN NONE SEEN /LPF 06/10/2025 3:17 AM EDT [employer] SEE NOTE SEE NOTE 06/10/2025 3:17 AM EDT [employer] Urine Urine specimen / Unknown 06/09/2025 9:54 AM EDT 06/10/2025 2:52 AM EDT [facility] - 06/10/2025 3:17 AM EDT FASTING:NO This urine was analyzed for the presence of WBC, RBC, bacteria, casts, and other formed elements. Only those elements seen were reported. . . us Didi Stein PA-C LAB URINE AMBULATORY Final R esult [employer]) [address] [address], [employer] [address] [address] * RFLX - REFLEXIVE URINE CULTURE Routine (06/09/2025 9:54 AM EDT) REFLEXIVE URINE CULTURE SEE NOTE 06/10/2025 3:17 AM EDT [employer] [facility] 06/09/2025 9:54 AM EDT 06/10/2025 2:52 AM EDT [facility] - 06/10/2025 3:17 AM EDT FASTING:NO NO CULTURE INDICATED us Didi Stein PA-C LAB - MICROBIOLOGY AMBULATOR Y Final Result Performing Organization Address [facility] Co de Phone Number [employer]) [address] [address], [employer] [address] [address] * (ABNORMAL) MICROALBUMIN/CREATININE RATIO, URINE, RANDOM Urine Routine (06/09/2025 9:54 AM EDT) CREATININE, RANDOM URINE 165 20 - 320 mg/dL 06/10/2025 5:52 PM EDT [facility] MICROALBUMIN 12.2 mg/dL 06/10/2025 5:52 PM EDT [facility] MICROALBUMIN/CRE ATININE RATIO, RANDOM URINE 74(H) <30 mg/g creat 06/10/2025 5:52 PM EDT [facility] Urine Urine specimen / Unknown 06/09/2025 9:54 AM EDT 06/10/2025 2:07 AM EDT [facility]arrative [facility] - 06/10/2025 5:58 PM EDT FASTING:NO Reference [...] AMBULATORY Final R esult Performing Organization Address [facility] Co de Phone Number [employer]) [address] [address], [employer] [address] [address] * VITAMIN B12 & FOLATE Routine (06/09/2025 9:54 AM EDT) VITAMIN B12 391 200 - 1,100 pg/mL 06/10/2025 4:58 AM EDT [facility] FOLATE, SERUM 8.0 ng/mL 06/10/2025 4:58 AM EDT [facility] Blood Blood / Unknown 06/09/2025 9 :54 AM EDT 06/10/2025 2:36 AM EDT Narrative [facility] - 06/10/2025 5:20 AM EDT FASTING:NO . [...] LAB - BLOOD DRAW Final Resul t [facility] [address] [place] [address], [facility] [address] [address] * (ABNORMAL) BLOOD COUNT COMPLETE AUTO&AUTO DIFRNTL WBC Routine (06/09/2025 9:54 AM EDT) Pathologist [facility] [place] WHITE BLOOD CELL COUNT 8.3 3.8 - 10.8 Thousand/ uL 06/10/2025 3:49 AM EDT [facility] RED BLOOD CELL COUNT 4.47 4.20 - 5.80 Million/u L 06/10/2025 3:49 AM EDT [facility] HEMOGLOBIN 12.6(L) 13.2 - 17.1 g/dL 06/10/2025 3:49 AM EDT [facility] HEMATOCRIT 40.4 38.5 - 50.0 % 06/10/2025 3:49 AM EDT [facility] MCV 90.4 80.0 - 100.0 fL 06/10/2025 3:49 AM EDT [facility] MCH 28.2 27.0 - 33.0 pg 06/10/2025 3:49 AM EDT [facility] MCHC 31.2(L) 32.0 - 36.0 g/dL 06/10/2025 3:49 AM EDinvendo medical [facility] RDW 15.4(H) 11.0 - 15.0 % 06/10/2025 3:49 AM EDT [facility] PLATELET COUNT 353 140 - 400 Thousand/ uL 06/10/2025 3:49 AM EDT [employer] [facility] MPV 9.5 7.5 - 12.5 fL 06/10/2025 3:49 AM EDT [employer] [facility] ABSOLUTE NEUTROPHILS 4,723 1,500 - 7,800 cells/uL 06/10/2025 3:49 AM EDT [employer] [facility] ABSOLUTE LYMPHOCYTES 2,150 850 - 3,900 cells/uL 06/10/2025 3:49 AM EDT [facility] ABSOLUTE MONOCYTES 481 200 - 950 cells/uL 06/10/2025 3:49 AM EDT [employer] [facility] ABSOLUTE EOSINOPHILS 896(H) 15 - 500 cells/uL 06/10/2025 3:49 AM EDT [facility] ABSOLUTE BASOPHILS 50 0 - 200 cells/uL 06/10/2025 3:49 AM EDT [facility] NEUTROPHILS PCT 56.9 % 3:49 AM EDT [facility] LYMPHOCYTES 25.9 % 06/10/2025 3:49 AM EDT [facility] MONOCYTES 5.8 % 06/10/2025 3:49 AM EDT [facility] EOSINOPHILS 10.8 % 06/10/2025 3:49 AM EDT [facility] BASOPHILS 0.6 % 06/10/2025 3:49 AM EDT [facility] Blood Blood / Unknown 06/09/2025 9 :54 AM EDT 06/10/2025 2:39 AM EDT Narrative [facility] - 06/10/2025 3:54 AM EDT FASTING:NO For adults, a slight decrease in the calculated MCHC value (in the range of 30 to 32 g/dL) is most likely not clinically significant; however, it should be interpreted with caution in correlation with other red cell parameters and the patient's clinical condition. us Didi Stein PA-C LAB - BLOOD DRAW Final Resul t [facility] [address] [place] [address], [facility] [address] [address] * (ABNORMAL) ASSAY OF PROSTATE SPECIFIC ANTIGEN TOTAL Routine (06/09/2025 9:54 AM EDT) PSA, TOTAL 25.31(H) < OR = 4.00 ng/mL 06/10/2025 4:58 AM EDT [employer](SPG) [facility] Blood Blood / Unknown 06/09/2025 9 :54 AM EDT 06/10/2025 2:36 AM EDT Narrative [facility] - 06/10/2025 5:20 AM EDT FASTING:NO The total PSA value from this assay system is standardized against the WHO standard. The test result will be approximately 20% lower when compared to the equimolar-standardized total PSA ([place]). Comparison of serial PSA results should be [...] DRAW Final Resul t Performing Organization Address City/[facility]/ZIP Co de Phone Number [employer](SPG) [address] [address], [employer] [address] [address] * ASSAY OF MAGNESIUM Routine (06/09/2025 9:54 AM EDT) MAGNESIUM 2.1 1.5 - 2.5 mg/dL 06/10/2025 3:49 AM EDT [employer]([facility]) [facility] Blood Blood / Unknown 06/09/2025 9 :54 AM EDT 06/10/2025 2:36 AM EDT Narrative [facility] - 06/10/2025 3:54 AM EDT FASTING:NO Didi Stein PA-C LAB - BLOOD DRAW Final Resul t Performing Organization Address City/[facility]/ZIP Co de Phone Number [employer](SPG) [address] [address], [employer] [address] [address] * (ABNORMAL) HEMOGLOBIN GLYCOSYLATED A1C Routine (06/09/2025 9:54 AM EDT) HEMOGLOBIN A1C 8.1(H) <5.7 % 06/10/2025 4:00 PM EDT [facility] [facility] Blood Blood / Unknown 06/09/2025 9 :54 AM EDT 06/10/2025 2:39 AM EDT [facility] - 06/10/2025 4:05 PM EDT FASTING:NO For [...] LAB - BLOOD DRAW Final Resul t [facility] [address] [place] [address], [facility] [address] [address] * (ABNORMAL) 25 HYDROXY INCLUDES FRACTIONS IF PERFORMED Routine (06/09/2025 9:54 AM EDT) VITAMIN D, 25-OH, TOTAL 28(L) 30 - 100 ng/mL 06/10/2025 4:58 AM EDT [employer] Blood Blood / Unknown 06/09/2025 9 :54 AM EDT 06/10/2025 2:36 AM EDT [facility] - 06/10/2025 5:20 AM EDT FASTING:NO Vitamin D Status 25-OH Vitamin D: . Deficiency: <20 ng/mL Insufficiency: 20 - 29 ng/mL Optimal: > or = 30 ng/mL . For 25-OH Vitamin D testing on patients on D2-supplementation and patients for whom quantitation of D2 and D3 fractions is required, the QuestAssureD(TM) 25-OH VIT D, (D2,D3), LC/MS/MS is recommended: order code 97601 (patients >2yrs). . See Note 1 . Note 1 . For additional information, please refer to http://education.[employer]/faq/AYH094 (This link is being provided for informational/ educational purposes only.) Didi Stein PA-C LAB - BLOOD DRAW Final Resul t [employer](SPG) [place] [facility] [address] [place] [address], [employer](SPG) [address] [address] * (ABNORMAL) LIPID PANEL Routine (06/09/2025 9:54 AM EDT) [facility] CHOLESTEROL, TOTAL 236(H) <200 mg/dL 06/10/2025 3:49 AM EDT [facility] HDL CHOLESTEROL 44 > OR = 40 mg/dL 06/10/2025 3:49 AM EDT [facility] TRIGLYCERIDES 190(H) <150 mg/dL 06/10/2025 3:49 AM EDT [facility] LDL-CHOLESTEROL 157(H) mg/dL (calc) 06/10/2025 3:49 AM EDT [facility] CHOL/HDLC RATIO 5.4(H) <5.0 (calc) 06/10/2025 3:49 AM EDT [facility] NON-HDL CHOLESTEROL 192(H) <130 mg/dL (calc) 06/10/2025 3:49 AM EDT [facility] Blood Blood / Unknown 06/09/2025 9 :54 AM EDT 06/10/2025 2:36 AM EDT Narrative [facility] - 06/10/2025 3:54 AM EDT FASTING:NO Reference range: <100 . Desirable range <100 mg/dL for primary prevention; <70 mg/dL for patients with CHD or diabetic patients with > or = 2 CHD risk factors. . LDL-C is now calculated using the Gerald-Mukherjee calculation, which is a validated novel method providing better accuracy than the Friedewald equation in the estimation of LDL-C. Gerald SS et al. GIOVANNA. 2013;310(19): 0965-6585 (http://education.[employer].Spine Pain Management/faq/RLF400) For patients with diabetes plus 1 major ASCVD risk factor, treating to a non-HDL-C goal of <100 mg/dL (LDL-C of <70 mg/dL) is considered a therapeutic option. us Didi Stein PA-C LAB - BLOOD DRAW Final Resul t [employer]([facility]) [facility] [address] [address], [employer]([facility]) [facility] [address] [place] [address] * (ABNORMAL) COMPREHENSIVE METABOLIC PANEL Routine (06/09/2025 9:54 AM EDT) GLUCOSE 63(L) 65 - 139 mg/dL 06/10/2025 3:49 AM EDT [facility] UREA NITROGEN (BUN) 16 7 - 25 mg/dL 06/10/2025 3:49 AM EDAkita [facility] CREATININE (blood) 1.50(H) 0.70 - 1.35 mg/dL 06/10/2025 3:49 AM EDinvendo medical [facility] EGFR 51(L) > OR = 60 mL/min/1. 73m2 06/10/2025 3:49 AM EDinvendo medical [facility] BUN/CREATININE RATIO 11 6 - 22 (calc) 06/10/2025 3:49 AM EDT [facility] SODIUM 139 135 - 146 mmol/L 06/10/2025 3:49 AM EDAkita [facility] POTASSIUM 4.5 3.5 - 5.3 mmol/L 06/10/2025 3:49 AM EDCrowd Vision CHLORIDE 104 98 - 110 mmol/L 06/10/2025 3:49 AM EDAkita [facility] [place] DIOXIDE 27 20 - 32 mmol/L 06/10/2025 3:49 AM EDinvendo medical [facility] CALCIUM 8.8 8.6 - 10.3 mg/dL 06/10/2025 3:49 AM EDinvendo medical [facility] PROTEIN, TOTAL 7.2 6.1 - 8.1 g/dL 06/10/2025 3:49 AM EDT [employer]([facility]) [facility] ALBUMIN 3.8 3.6 - 5.1 g/dL 06/10/2025 3:49 AM EDT [employer] GLOBULIN 3.4 1.9 - 3.7 g/dL (calc) 06/10/2025 3:49 AM EDT [employer]([facility]) [facility] ALBUMIN/GLOBULI N RATIO 1.1 1.0 - 2.5 (calc) 06/10/2025 3:49 AM EDT [employer]([facility]) [place] [facility] BILIRUBIN, TOTAL 0.3 0.2 - 1.2 mg/dL 06/10/2025 3:49 AM EDT [employer]([facility]) [facility] ALKALINE PHOSPHATASE 104 35 - 144 U/L 06/10/2025 3:49 AM EDT [employer]([facility]) [facility] AST 13 10 - 35 U/L 06/10/2025 3:49 AM EDT [employer]([facility]) [facility] ALT 15 9 - 46 U/L 06/10/2025 3:49 AM EDT [facility] Blood Blood / Unknown 06/09/2025 9 :54 AM EDT 06/10/2025 2:36 AM EDT Narrative [facility] - 06/10/2025 3:54 AM EDT FASTING:NO . Non-fasting reference interval . Didi Stein PA-C LAB - BLOOD DRAW Final Resul t [facility] [address] [address], [facility] [address] [address] * HEALTH HISTORY SCANNED DOCUMENT (06/08/2025 3:00 AM EDT) Only the most recent of2 resultswithin the time period is included. 06/08/2025 3:00 AM EDT [facility] Provider Default SCAN OTHER ORDERS Final Re sult * REFERRAL SCANNED DOCUMENT (05/31/2025 3:00 AM EDT) 05/31/2025 3:00 AM EDT Cassandra Moses PA-C SCAN REFERRAL Final Result * REFERRAL TO PODIATRY (01/14/2024 3:00 AM EDT) 01/14/2024 3:00 AM EDT [employer] PA-C REFERRAL Final Result * REFERRAL FOR DIABETIC RETINAL EXAM (11/29/2023 3:00 AM EST) 11/29/2023 3:00 AM EST Cassandra Moses PA-C REFERRAL Final Result * Hep C Antibody with Reflex HCV RNA (04/17/2022 9:55 AM EDT) HEPATITIS C ANTIBODY NON-REACT ANTHONY NON-REACT ANTHONY [facility] SIGNAL TO CUT-OFF 0.11 <1.00 [facility] Comment: HCV antibody was non-reactive. There is no laboratory evidence of HCV infection. In most cases, no further action is required. However, if recent HCV exposure is suspected, a test for HCV RNA (test code 96812) is suggested. For additional information please refer to http://education.Vyyo/faq/AJL10u0 (This link is being provided for informational/ educational purposes only.) Blood Blood / Unknown 04/17/2022 9 :55 AM EDT 04/17/2022 9:56 AM EDT Tã Em Bé PA-C LAB - BLOOD DRAW Edited Resu lt - Final [facility] [address] [address], [employer]([facility]) [facility] [address] [address] * HIV Ag & Ab with Reflex Western Blot (04/17/2022 9:55 AM EDT) HIV AG/AB, 4TH GEN NON-REAC TIVE NON-REAC TIVE [facility] Comment: HIV-1 antigen and HIV-1/HIV-2 antibodies [...] purpose. For additional information please refer to http://education.Vyyo/faq/BDM178 (This link is being provided for informational/ educational purposes only.) The performance of this assay has not been clinically validated in patients less than 2 years old. Blood Blood / Unknown 04/17/2022 9 :55 AM EDT 04/17/2022 9:56 AM EDT us Cassandra Moses PA-C LAB - BLOOD DRAW Final Resul t [facility] [address] [address], [facility] [address] [address] from Last 3 Months or Most Recently Relevant to Health Maintenance Insurance [place] MEDICA[place] [facility] [place] [id number] Care Teams Soil Conservationist Relationship Specialty Start Date End Date Cassandra Moses PA-C [facility] [place] [address] PCP - General Internal Medicine 12/06/21
--- OUTSIDE RECORDS SUMMARY | 2025-06-30 16:09 | XMS_ITS | Clinical Summary ---
Author Organization [facility] Address [address] [place] [address] Phone Care Team Providers Care Gas Plumbing Inspector Name Role Phone Cassandra Moses Primary Care [...] Description 08/26/2025 12:30 PM EDT Ancillary Procedure [facility] [address] [place] [address] Health Maintenance Due Date Last [...] 09/30/2022 Social Influencers of Health Screening 09/30/2022 Depression Screening 10/28/2024 Diabetes: Annual Urine Albumin-Creatinine Ratio (uACR) 12/23/2024 12/23/2023 Diabetes: Blood Sugar Control Test (HGBA1C) 05/15/2025 11/15/2024, 11/06/2024, 04/07/2024 COVID-19 Vaccine ( - season) 2025 01/21/2023, 02/15/2022 Influenza Vaccine (#1) 2025 07/21/2024 Falls Risk [...] mg/dL LAB CHEMISTRY METHOD 11/16/2024 4:40 AM [facility] Triglycerides 189(H) 0 - 150 mg/dL LAB CHEMISTRY METHOD 11/16/2024 4:40 AM [facility] HDL 35(L) >=40 mg/dL LAB CHEMISTRY METHOD 11/16/2024 4:40 AM [facility] LDL Calculated 69 0 - 100 mg/dL LAB CHEMISTRY METHOD 11/16/2024 4:40 AM [facility] VLDL Cholesterol Rad 37.8 mg/dL LAB CHEMISTRY METHOD 11/16/2024 4:40 AM [facility] Non HDL Chol. (LDL+VLDL) 107 <145 mg/dL LAB CHEMISTRY METHOD 11/16/2024 4:40 AM [facility] Chol/HDL Ratio 4.1 0.0 - 4.4 LAB CHEMISTRY METHOD 11/16/2024 4:40 AM [facility] Blood Venous blood specimen / Unknown Venipuncture / Unknown 11/16/2024 3:55 AM EST 11/16/2024 3:59 AM EST Nan BOLANOS LAB BLOOD ORDERABLES Fi nal Result [facility] [address] [place] [address], * (ABNORMAL) Basic metabolic panel (11/16/2024 3:55 AM EST) Sodium 138 133 - 145 mmol/L LAB CHEMISTRY METHOD 11/16/2024 4:39 AM [facility] Potassium 3.7 3.5 - 5.5 mmol/L LAB CHEMISTRY METHOD 11/16/2024 4:39 AM [facility] Chloride 107 96 - 110 mmol/L LAB CHEMISTRY METHOD 11/16/2024 4:39 AM [facility] CO2 24 21 - 32 mmol/L LAB CHEMISTRY METHOD 11/16/2024 4:39 AM [facility] Anion Gap 7 3 - 11 LAB CHEMISTRY METHOD 11/16/2024 4:39 AM [facility] Glucose 157(H) 70 - 100 mg/dL LAB CHEMISTRY METHOD 11/16/2024 4:39 AM [facility] BUN 23 5 - 25 mg/dL LAB CHEMISTRY METHOD 11/16/2024 4:39 AM [facility] Creatinine 1.58(H) 0.70 - 1.30 mg/dL LAB CHEMISTRY METHOD 11/16/2024 4:39 AM [facility] eGFR 49(L) >=60 mL/min/1. 73m2 LAB CHEMISTRY METHOD 11/16/2024 4:39 AM [facility] Comment:Calculation based on the Chronic Kidney Disease Epidemiology Collaboration (CKD-EPI) equation refit without adjustment for race. BUN/Creatinine Ratio 14.6 LAB CHEMISTRY METHOD 11/16/2024 4:39 AM [facility] Calcium 8.2(L) 8.5 - 10.5 mg/dL LAB CHEMISTRY METHOD 11/16/2024 4:39 AM [facility] Blood Venous blood specimen / Unknown Venipuncture / Unknown 11/16/2024 3:55 AM EST 11/16/2024 3:59 AM EST us Antonio Doss MD LAB BLOOD ORDERABLES Final Res ult [facility] [address] [place] [address], * (ABNORMAL) Hemoglobin A1c (11/15/2024 1:54 PM EST) Hemoglobin A1C 13.5(H) <6.5 % LAB CHEMISTRY METHOD 11/16/2024 1:32 PM EST [facility] Mean Bld Glu Estim. 341 mg/dL LAB CHEMISTRY METHOD 11/16/2024 1:32 PM EST [facility] Blood Venous blood specimen / Unknown Venipuncture / Unknown 11/15/2024 1:54 PM EST 11/15/2024 2:08 PM EST us Nan BOLANOS LAB BLOOD ORDERABLES Fi nal Result [facility] [address] [place] [address], [place] [phone] from Last 3 Months or Most Recently Relevant to Health Maintenance Insurance [facility] Member Subscriber Plan / Payer (Ef fective 2025-Present) Name:Yanick Power Relation to Subscriber:Self Name:Yanick Arita Payer ID:[id number] Group ID:[id number] Type:Not on file Address: [place] [address] [place] [id number] Advance Directives * Full Code - Default [...] currently active code status orders. Care Teams Gas Plumbing Inspector Relationship Specialty Start Date End Date Cassandra Moses PA [address] [place] [address] PCP - General 07/12/22
== END 2025-06-30 15:05 | disposition home or self-care (01) ==
LOC: HO.HID 13:55
PROVIDERS: PCP Physician Assistant; Visit Provider Internal Medicine
DX: M86.9 Osteomyelitis, unspecified (principal)
CPT/HCPCS: 99213

== ENCOUNTER → 2025-06-30 13:55 | Outpatient (BNVA) | payer OTHER, SELFPAY | PROVIDERS: PCP Physician Assistant; Visit Provider Internal Medicine | DX: M86.172 Other acute osteomyelitis, left ankle and foot (principal) | CPT/HCPCS: 99212 ==

== ENCOUNTER 2025-07-13 08:57 | Outpatient (AMB) | payer OTHER, SELFPAY ==
[2025-07-13 09:30] VITALS: BP 150/92; PULSE 82; O2SAT 99; BMI 31.6
--- NOTE | 2025-07-13 09:30 | HO.NEPHOV ---
Vital Signs 07/13/25 09:30 07/13/25 09:46 Height 6 ft 2 in Weight 246 lb BMI 31.6 BP 150/92 H 140/84 H Blood Pressure Location Rt brachial Rt brachial Position Sitting Sitting Pulse 82 Pulse Source Pulse Oximeter Pulse Oximetry (%) 99 Oxygen Delivery Method Room Air Intake Visit Reasons: 1 MO FU-Conf w/[employer] Executive Asst Required: Yes Executive Asst Name: Halle [id number] Accompanied by: Spouse Allergies No Known Drug Allergies Allergy (Verified 07/13/25 09:32) Unknown Medication List - Last Reconciled 07/13/25 by Erasmo Pulido MD albuterol sulfate 90 mcg/actuation 2 puffs inhalation Q4H PRN aripiprazole 2 mg PO DAILY atorvastatin 80 mg PO BEDTIME Held on 05/26/25. Instructions: Resume on 07/03/25. Hold while on daptomycin, per infectious disease carvedilol 12.5 mg PO BID daptomycin 500 mg IV DAILY dulaglutide (Trulicity) 1.5 mg subcut TU gabapentin 100 mg PO TID insulin degludec (Tresiba FlexTouch U-100 insulin) 32 units subcut DAILY insulin lispro (Humalog KwikPen (U-100) Insulin) See Protocol sliding scale doses subcut TIDAC levothyroxine 50 mcg PO DAILY@0600 pantoprazole 40 mg PO DAILY@0630 sacubitril-valsartan 97-103 mg (Entresto) 1 tab PO BID tamsulosin 0.4 mg PO DAILY torsemide 40 mg PO BID Held on 05/26/25. Instructions: Resume on 06/05/25. Hold until your nephrology visit. Dr. Delong will make further recommendations about whether to resume or continue holding. HPI Comments Details: The patient is a 65-year-old male presenting with chronic kidney disease. He was referred for nephrology consultation due to ongoing kidney issues. The patient has a history of diabetes mellitus, and has been managing it alongside hyperlipidemia and hypertension. He also reports benign prostatic hyperplasia History of coronary artery disease status post stent placement. History of cardiomyopathy status post CardioMEMS. History of COPD/asthma The patient reports swelling in his legs, identified as peripheral edema, despite adherence to diuretic therapy. He attributes the edema to cardiac issues, as his heart rate has been slow, necessitating cardiology consultations. 07/13/25 The patient is a 65-year-old male presenting with chronic kidney disease follow-up Has increased UO. Ultrasound pending for further investigation. COUNTS INCLUDE 234 BEDS AT [facility] Medical History Osteomyelitis CKD (chronic kidney disease) stage 3, GFR 30-59 ml/min Class 1 obesity Social History Household Members: Spouse Housing: Apartment Do you presently have visiting nurse or other home services: Yes ([employer]) Patient Tobacco Use Status: Never used Tobacco e-Cigarette/Vaping Use: Never Used service: No Physical Exam Vital Signs: Last Vital Signs Pulse 82 07/13/25 09:30 BP 150/92 H 07/13/25 09:30 Pulse Ox 99 07/13/25 09:30 Oxygen Delivery Method Room Air 07/13/25 09:30 BMI result Body Mass Index 31.6 Const General: comfortable Nutritional Appearance: well nourished Orientation/consciousness: patient oriented x3 HEENT Head: No normal to inspection Mouth: moist mucous membranes Neck Neck: Yes supple and Yes no JVD Resp Auscultation: clear to auscultation bilaterally, no rales and rub present Cardio Jugular venous distension: no JVD Palpation: no palpable S3 and no palpable S4 Heart sounds: no rubs GI Palpation (GI): Soft to palpation and nontender Percussion: No Fluid wave present General: Yes no CVA tenderness Back/Spine/Pelvis Back: no CVA tenderness Skin General skin exam: no rashes or lesions noted Neuro General: patient oriented x3 Extrem General: No clubbing and Yes edema Results Reviewed Nephrology Results: Hgb, (14.0-18.0) 12.0 g/dl L 06/25/25 WBC, (4.8-10.8) 8.3 X10*3/uL 06/25/25 Plt Count, (160-400) 284 X10*3/uL 06/25/25 Sodium, (135-145) 139 mmol/L 06/25/25 Potassium, (3.3-5.1) 4.4 mmol/L 06/25/25 Chloride, (96-108) 105 mmol/L 06/25/25 Carbon Dioxide, (22-29) 24 mmol/L 06/25/25 BUN, (9-16) 24 mg/dL H 06/25/25 Creatinine, (0.5-1.4) 1.87 mg/dL H 06/25/25 Calcium, (8.4-10.2) 8.7 mg/dL 06/25/25 Urine Protein, (Neg-Trace) 30 (1+) mg/dL H 06/11/25 Urine Creatinine 252.39 mg/dL 06/11/25 Assessment & Plan Assessment & Plan (1) VINCENT (acute kidney injury): Code(s): N17.9 - Acute kidney failure, unspecified Category: Medical Plan CKD 3 a in a setting of longstanding hypertension diabetes mellitus and cardiomyopathy. There has been a mild bump in serum creatinine from the baseline. Differential diagnosis would include underlying diabetic hypertensive kidney disease. Bump in serum creatinine may be related to altered hemodynamics. Obstructive uropathy should certainly be ruled out. 07/13/25 Await renal ultrasonogram. urine protein creatinine ratio - minimal Decrease Torsemide to 40 mg daily from BID ( 07/13/25) Low salt diet Orders: Orders Basic Metabolic Panel 6 Weeks N17.9 - Acute kidney failure, unspecified Complete Blood Count no Diff 6 Weeks N17.9 - Acute kidney failure, unspecified Coding Level of Care Code Est Pt Level 4 (51286) Diagnoses VINCENT (acute kidney injury) N17.9
[2025-07-13 09:46] VITALS: BP 140/84
--- OUTSIDE RECORDS SUMMARY | 2025-07-13 11:02 | XMS_ITS | Clinical Summary ---
Author Organization [facility] Address [address] [place] [address] Phone Care Team Providers Care Senior Research Scientist Name Role Phone Cassandra Moses Primary Care [...] Description 08/26/2025 12:30 PM EDT Ancillary Procedure [facility] [address] [place] [address] Health Maintenance Due Date Last [...] mg/dL LAB CHEMISTRY METHOD 11/16/2024 4:40 AM [facility] Triglycerides 189(H) 0 - 150 mg/dL LAB CHEMISTRY METHOD 11/16/2024 4:40 AM [facility] HDL 35(L) >=40 mg/dL LAB CHEMISTRY METHOD 11/16/2024 4:40 AM [facility] LDL Calculated 69 0 - 100 mg/dL LAB CHEMISTRY METHOD 11/16/2024 4:40 AM [facility] VLDL Cholesterol Rad 37.8 mg/dL LAB CHEMISTRY METHOD 11/16/2024 4:40 AM [facility] Non HDL Chol. (LDL+VLDL) 107 <145 mg/dL LAB CHEMISTRY METHOD 11/16/2024 4:40 AM [facility] Chol/HDL Ratio 4.1 0.0 - 4.4 LAB CHEMISTRY METHOD 11/16/2024 4:40 AM [facility] Blood Venous blood specimen / Unknown Venipuncture / Unknown 11/16/2024 3:55 AM EST 11/16/2024 3:59 AM EST Nan BOLANOS LAB BLOOD ORDERABLES Fi nal Result [facility] [address] [place] [address], * (ABNORMAL) Basic metabolic panel (11/16/2024 3:55 AM EST) Sodium 138 133 - 145 mmol/L LAB CHEMISTRY METHOD 11/16/2024 4:39 AM [facility] Potassium 3.7 3.5 - 5.5 mmol/L LAB CHEMISTRY METHOD 11/16/2024 4:39 AM [facility] Chloride 107 96 - 110 mmol/L LAB CHEMISTRY METHOD 11/16/2024 4:39 AM [facility] CO2 24 21 - 32 mmol/L LAB CHEMISTRY METHOD 11/16/2024 4:39 AM [facility] Anion Gap 7 3 - 11 LAB CHEMISTRY METHOD 11/16/2024 4:39 AM [facility] Glucose 157(H) 70 - 100 mg/dL LAB CHEMISTRY METHOD 11/16/2024 4:39 AM [facility] BUN 23 5 - 25 mg/dL LAB CHEMISTRY METHOD 11/16/2024 4:39 AM [facility] Creatinine 1.58(H) 0.70 - 1.30 mg/dL LAB CHEMISTRY METHOD 11/16/2024 4:39 AM [facility] eGFR 49(L) >=60 mL/min/1. 73m2 LAB CHEMISTRY METHOD 11/16/2024 4:39 AM [facility] Comment:Calculation based on the Chronic Kidney Disease Epidemiology Collaboration (CKD-EPI) equation refit without adjustment for race. BUN/Creatinine Ratio 14.6 LAB CHEMISTRY METHOD 11/16/2024 4:39 AM [facility] Calcium 8.2(L) 8.5 - 10.5 mg/dL LAB CHEMISTRY METHOD 11/16/2024 4:39 AM [facility] Blood Venous blood specimen / Unknown Venipuncture / Unknown 11/16/2024 3:55 AM EST 11/16/2024 3:59 AM EST us Antonio Doss MD LAB BLOOD ORDERABLES Final Res ult [facility] [address] [place] [address], * (ABNORMAL) Hemoglobin A1c (11/15/2024 1:54 PM EST) Hemoglobin A1C 13.5(H) <6.5 % LAB CHEMISTRY METHOD 11/16/2024 1:32 PM EST [facility] Mean Bld Glu Estim. 341 mg/dL LAB CHEMISTRY METHOD 11/16/2024 1:32 PM EST [facility] Blood Venous blood specimen / Unknown Venipuncture / Unknown 11/15/2024 1:54 PM EST 11/15/2024 2:08 PM EST us Nan BOLANOS LAB BLOOD ORDERABLES Fi nal Result [facility] ([facility] [address] [place] [address], [place] [phone] from Last 3 Months or Most Recently Relevant to Health Maintenance Insurance [facility] Member Subscriber Plan / Payer (Ef fective 2025-Present) Name:Yanick Power Relation to Subscriber:Self Name:Yanick Arita Payer ID:[id number] Group ID:[id number] Type:Not on file Address: [place] [address] [address] [phone] Advance Directives * Full Code - Default [...] currently active code status orders. Care Teams Senior Research Scientist Relationship Specialty Start Date End Date Cassandra Moses PA [address] [place] [address] PCP - General 07/12/22
--- OUTSIDE RECORDS SUMMARY | 2025-07-13 11:02 | XMS_ITS | Clinical Summary ---
Author Organization [facility] Address [address] [place] [address] Care Team Providers [facility] Name Role Phone Cassandra Moses PA-C Primary Care Provider [phone] Source Comments PLEASE NOTE, if this patient [...] INTO LIQUID AND DRINK DAILY. Prescribed By: FELISHA GARZA 510 g 03/13/20 24 Active melatonin 1 mg tablet Take 1 Tablet by mouth nightly at bedtime as needed for sleep for up to 30 days 30 Tablet 03/13/20 24 Active MISCELLANEOUS MEDICAL SUPPLY MISCIndications: Type 2 diabetes mellitus without complication, with long-term current use of insulin ([facility]),Essenti al (primary) hypertension,At risk for falling,Diabetic feet ([facility]) by miscellaneous route daily. Diabetic shoes size [...] complication, with long-term current use of insulin ([facility]),Essenti al (primary) hypertension,At risk for falling,Diabetic feet ([facility]) by miscellaneous route daily. Diabetic shoes size 11.5 for daily use. Diagnosis diabetes, obesity. Length of need 99 months 1 Each 10/27/20 24 Active pen needle, diabetic 31 gauge x 5/16 ndleIndications: Type 2 diabetes mellitus with hyperglycemia, with long-term current use of insulin ([facility]) To inject insulin 4 times daily. 100 Each 11/06/19 Active blood-glucose sensor (FREESTYLE MAIDA 3 PLUS SENSOR) deviIndications: Type 2 diabetes mellitus with hyperglycemia, with long-term current use of insulin ([facility]) Place 1 sensor to back of upper arm every 15 days. Use to monitor blood sugar continuously (Freestyle Maida 3 Plus) 2 Each 11/20/19 25 Active blood-glucose meter,continuous (FREESTYLE MAIDA 3 READER) miscIndications: Type 2 diabetes mellitus with hyperglycemia, with long-term current use of insulin ([facility]) 1 Units by miscellaneous route daily. To check BS daily. 1 Each 11/20/19 25 Active blood sugar diagnostic stripsIndication s:Type 2 diabetes mellitus with hyperglycemia, with long-term current use of insulin ([facility]) 1 Each 4 (four) times daily Precision Justin test Strips to check sugar 4 times a day. Pt wants home delivery of his sensor/test strips. 100 Each 5 11/20/19 25 Active tamsulosin (FLOMAX) 0.4 mg 24 hr capsuleIndicatio ns:Difficulty in voiding TOME LLOYD CAPSULA TODOS [place] 90 Capsule 1 12/22/19 25 Active ENTRESTO 97-103 mg tabIndications:C ongestive heart failure, unspecified HF chronicity, unspecified heart failure type ([facility]) TOME 1 TABLETA POR VIA [...] chronicity, unspecified heart failure type ([facility] & [facility]),Hyperte nsion, essential TOME LLOYD TABLETA 2 VECES AL ADELSO CON LAS COMIDAS 180 Tablet 1 04/07/20 25 Active levothyroxine 50 mcg tabletIndication s:Hypothyroidism , unspecified type TOME 1 TABLETA POR VIA ORAL TODOS [place] POZO. 84 Tablet 2 04/14/20 25 Active dulaglutide (TRULICITY) 1.5 mg/0.5 mL pen injectorIndicati ons:Type 2 diabetes mellitus with hyperglycemia, with long-term current use of insulin ([facility]) Inject 1.5 mg into the skin once a week. 2 mL 2 05/03/20 25 Active atorvastatin (LIPITOR) 80 mg tabletIndication s:Essential (primary) hypertension Take 1 Tablet by mouth nightly at bedtime. 90 Tablet 1 06/09/20 25 Active insulin lispro 100 unit/mL injection penIndications:T ype 2 diabetes mellitus with hyperglycemia, with long-term current use of insulin ([facility]) SLIDING SCALE 3 times a day 100-149: 15 units, 150-199: 18 units, 200-249: 21 units, 250-299: 24 units, 300-349: 27 units, 350-399: 30 units.. 15 mL 1 06/17/20 25 Active TRESIBA FLEXTOUCH U-100 100 unit/mL (3 mL)Indications:T ype 2 diabetes mellitus with hyperglycemia, with long-term current use of insulin ([facility]) INJECT 32 UNITS INTO THE SKIN EVERY MORNINGStrength: 100 unit/mL (3 mL). 15 mL 1 06/17/20 25 Active insulin lispro 100 unit/mL injection penIndications:U ncontrolled type 2 diabetes mellitus with hypoglycemia without coma ([facility]) SLIDING SCALE 3 times a day 100-149: 15 units, 150-199: 18 units, 200-249: 21 units, 250-299: 24 units, 300-349: 27 units, 350-399: 30 units. 15 mL 1 12/12/19 25 025 Discontin ued(Reord er (E-Cancel Not Sent)) TRESIBA FLEXTOUCH U-100 100 unit/mL (3 mL)Indications:U ncontrolled type 2 diabetes mellitus with hypoglycemia without coma ([facility]) INJECT 32 UNITS INTO THE SKIN EVERY MORNINGStrength: 100 unit/mL (3 mL) 15 mL 1 01/30/20 25 025 Discontin ued(Reord er (E-Cancel Not Sent)) Active Problems Problem Noted Date Diagnosed Date Class 1 obesity due to exces s calories with serious comorbidity and body mass index (BMI) of 31.0 to 31.9 in adult 12/23/2023 PTSD (post-traumatic stress disorder) 07/05/2022 Generalized anxiety disorder 05/09/2022 Constipation 04/18/2022 Exacerbation of asthma ([facility]) 04/18/2022 Gout 04/18/2022 Hypothyroidism 04/18/2022 Type 2 diabetes mellitus wit h hyperglycemia, with long-term current use of insulin ([facility]) 04/18/2022 Congestive heart failure ([facility]) 022 Elevated prostate specific antigen (PSA) 022 Overview (06/02/2025): 01/25/2025 - [facility] - Dx: Elevated PSA - F/u with MRI of prostate - TRUSP bx w f/u Pneumonia due to coronavirus disease 2019 (CODE) 02/04/2022 Acute kidney failure, unspecified ([facility] V24) 01/31/2022 Essential (primary) hypertension 01/31/2022 Stage 3 chronic kidney disease ([facility]) 0 01/31/2022 Encounters Date Type Department Care Team Description 06/17/2025 3:00 PM EDT Office Visit [address] [phone] Nikolai Stephenson, PharmD Magali Faust 06/09/2025 9:00 AM EDT Office Visit [address] [phone] Didi Stein PA-C 06/09/2025 Interim Notes [address] [phone] 04/29/2025 3:40 PM EDT Interim Notes [facility] [address] [place] [phone] 04/29/2025 3:20 PM EDT Office Visit [address] [phone] Nikolai Stephenson, PharmD Jesenia Sampson from Last [...] Description 07/26/2025 10:20 AM EDT Telemedicine Visit [facility] [address] [place] [phone] Didi Stein PA-C [address] [place] [phone] 08/10/2025 1:00 PM EDT Interim Notes [facility] [place] [phone] 08/10/2025 1:20 PM EDT Office Visit [facility] [address] [place] [phone] Nioklai Stephenson, PharmD [address] [place] [address] 08/10/2025 2:10 PM EDT Interim Notes [facility] [address] [place] [phone] Health Maintenance Due Date Last Done Comments Anxiety Screening 1960 Dental FMX/Pano 1960 Medicare Annual Wellness Visit 02/22/1978 Imm-DTaP/Tdap/Td (1 - Tdap) 02/22/1979 CT Colonography 02/22/2005 Colonoscopy 02/22/2005 Colorectal Cancer Screening 02/22/2005 FIT/gFOBT 02/22/2005 Fecal DNA 02/22/2005 Flexible Sigmoidoscopy 02/22/2005 Imm-Zoster, Recombinant (1 of 2) 02/22/2010 Retinopathy Screening 11/29/2024 11/29/2023 Abdominal Aortic Aneurysm Screening 02/22/2025 Falls Prevention 02/22/2025 Dental Prophy 03/23/2025 09/21/2024 Tio-PEUPC-99 ( season) 2025 023, 02/15/2022 Imm-Influenza (#1) 2025 07/21/2024 Hemoglobin A1c 09/09/2025 06/09/2025, 02/25, 11/15/2024, Additional history exists Dental Examination 09/23/2025 [...] Associated Diagnosis Comments OTHER ORDERS SCANNED DOCUMENT 07/02/2025 3:00 AM EDT REFERRAL SCANNED DOCUMENT 06/30/2025 3:00 AM EDT OTHER ORDERS SCANNED DOCUMENT 06/23/2025 3:00 AM EDT GLUCOSE, BLOOD BY GLUCOSE MONITORING DEVICE (CLIA WAIVED)POCT Routine 06/17/2025 3:07 PM EDT Type 2 diabetes mellitus with hyperglycemia, with long-term current use of insulin ([facility]) REFERRAL TO NEPHROLOGY Urgent 06/11/2025 3:00 AM EDT Stage 3b chronic kidney disease ([facility]) RFLX - REFLEXIVE URINE CULTURE Routine 06/09/2025 9:54 AM EDT ASSAY OF PROSTATE SPECIFIC ANTIGEN TOTAL Routine 06/09/2025 9:54 AM EDT Routine general medical examination at a [facility] care facility Class 1 obesity due to excess calories with serious comorbidity and body mass index (BMI) of 30.0 to 30.9 in adult Type 2 diabetes mellitus with hyperglycemia, with long-term current use of insulin ([facility]) Congestive heart failure, unspecified HF chronicity, unspecified heart failure type ([facility]) Hypothyroidism, unspecified type Stage 3 chronic kidney disease, unspecified whether stage 3a or 3b CKD ([facility]) Elevated prostate specific antigen (PSA) Mild vitamin D deficiency VITAMIN B12 & FOLATE Routine 06/09/2025 9:54 AM EDT Routine general medical examination at a health care facility Class 1 obesity due to excess calories with serious comorbidity and body mass index (BMI) of 30.0 to 30.9 in adult Type 2 diabetes mellitus with hyperglycemia, with long-term current use of insulin ([facility]) Congestive heart failure, unspecified HF chronicity, unspecified heart failure type ([facility]) Hypothyroidism, unspecified type Stage 3 chronic kidney disease, unspecified whether stage 3a or 3b CKD ([facility]) Elevated prostate specific antigen (PSA) Mild vitamin D deficiency ASSAY OF MAGNESIUM Routine 06/09/2025 9: 54 AM EDT Routine general medical examination at a [facility] facility Class 1 obesity due to excess calories with serious comorbidity and body mass index (BMI) of 30.0 to 30.9 in adult Type 2 diabetes mellitus with hyperglycemia, with long-term current use of insulin ([facility]) Congestive heart failure, unspecified HF chronicity, unspecified heart failure type ([facility]) Hypothyroidism, unspecified type Stage 3 chronic kidney disease, unspecified whether stage 3a or 3b CKD ([facility]) Elevated prostate specific antigen (PSA) Mild vitamin D deficiency 25 HYDROXY INCLUDES FRACTIONS IF PERFORMED Routine 06/09/2025 9:54 AM EDT Routine general medical examination at a [facility] Class 1 obesity due to excess calories with serious comorbidity and body mass index (BMI) of 30.0 to 30.9 in adult Type 2 diabetes mellitus with hyperglycemia, with long-term current use of insulin ([facility]) Congestive heart failure, unspecified HF chronicity, unspecified heart failure type ([facility]) Hypothyroidism, unspecified type Stage 3 chronic kidney disease, unspecified whether stage 3a or 3b CKD ([facility]) Elevated prostate specific antigen (PSA) Mild vitamin D deficiency BLOOD COUNT COMPLETE AUTO&AUTO DIFRNTL WBC Routine 06/09/2025 9:54 AM EDT Routine general medical examination at a [facility] facility Class 1 obesity due to excess calories with serious comorbidity and body mass index (BMI) of 30.0 to 30.9 in adult Type 2 diabetes mellitus with hyperglycemia, with long-term current use of insulin ([facility]) Congestive heart failure, unspecified HF chronicity, unspecified heart failure type ([facility]) Hypothyroidism, unspecified type Stage 3 chronic kidney disease, unspecified whether stage 3a or 3b CKD ([facility]) Elevated prostate specific antigen (PSA) Mild vitamin D deficiency COMPREHENSIVE METABOLIC PANEL Routine 06/09/2025 9:54 AM EDT Routine general medical examination at a [facility] facility Class 1 obesity due to excess calories with serious comorbidity and body mass index (BMI) of 30.0 to 30.9 in adult Type 2 diabetes mellitus with hyperglycemia, with long-term current use of insulin ([facility]) Congestive heart failure, unspecified HF chronicity, unspecified heart failure type ([facility]) Hypothyroidism, unspecified type Stage 3 chronic kidney disease, unspecified whether stage 3a or 3b CKD ([facility]) Elevated prostate specific antigen (PSA) Mild vitamin D deficiency LIPID PANEL Routine 06/09/2025 9:54 AM EDT Routine general medical examination at a [facility] Class 1 obesity due to excess calories with serious comorbidity and body mass index (BMI) of 30.0 to 30.9 in adult Type 2 diabetes mellitus with hyperglycemia, with long-term current use of insulin ([facility]) Congestive heart failure, unspecified HF chronicity, unspecified heart failure type ([facility]) Hypothyroidism, unspecified type Stage 3 chronic kidney disease, unspecified whether stage 3a or 3b CKD ([facility]) Elevated prostate specific antigen (PSA) Mild vitamin D deficiency TSH W/RFLX FREE T4 Routine 06/09/2025 9: 54 AM EDT Routine general medical examination at a [facility] facility Class 1 obesity due to excess calories with serious comorbidity and body mass index (BMI) of 30.0 to 30.9 in adult Type 2 diabetes mellitus with hyperglycemia, with long-term current use of insulin ([facility]) Congestive heart failure, unspecified HF chronicity, unspecified heart failure type ([facility]) Hypothyroidism, unspecified type Stage 3 chronic kidney disease, unspecified whether stage 3a or 3b CKD ([facility]) Elevated prostate specific antigen (PSA) Mild vitamin D deficiency HEMOGLOBIN GLYCOSYLATED A1C Routine 06/09/2025 9:54 AM EDT Routine general medical examination at a [facility] facility Class 1 obesity due to excess calories with serious comorbidity and body mass index (BMI) of 30.0 to 30.9 in adult Type 2 diabetes mellitus with hyperglycemia, with long-term current use of insulin ([facility]) Congestive heart failure, unspecified HF chronicity, unspecified heart failure type ([facility]) Hypothyroidism, unspecified type Stage 3 chronic kidney disease, unspecified whether stage 3a or 3b CKD ([facility]) Elevated prostate specific antigen (PSA) Mild vitamin D deficiency URINALYSIS, COMPLETE W/REFLEX TO CULTURE Routine 06/09/2025 9:54 AM EDT Routine general medical examination at a [facility] care facility Class 1 obesity due to excess calories with serious comorbidity and body mass index (BMI) of 30.0 to 30.9 in adult Type 2 diabetes mellitus with hyperglycemia, with long-term current use of insulin ([facility]) Congestive heart failure, unspecified HF chronicity, unspecified heart failure type ([facility]) Hypothyroidism, unspecified type Stage 3 chronic kidney disease, unspecified whether stage 3a or 3b CKD ([facility]) Elevated prostate specific antigen (PSA) Mild vitamin D deficiency MICROALBUMIN/CREATINI NE RATIO, URINE, RANDOM Routine 06/09/2025 9:54 AM EDT Routine general medical examination at a [facility] care facility Class 1 obesity due to excess calories with serious comorbidity and body mass index (BMI) of 30.0 to 30.9 in adult Type 2 diabetes mellitus with hyperglycemia, with long-term current use of insulin ([facility]) Congestive heart failure, unspecified HF chronicity, unspecified heart failure type ([facility]) Hypothyroidism, unspecified type Stage 3 chronic kidney disease, unspecified whether stage 3a or 3b CKD ([facility]) Elevated prostate specific antigen (PSA) Mild vitamin D deficiency HEALTH HISTORY SCANNED DOCUMENT 06/08/2025 3:00 AM EDT REFERRAL SCANNED DOCUMENT 05/31/2025 3:00 AM EDT GLUCOSE, BLOOD BY GLUCOSE MONITORING DEVICE (CLIA WAIVED)POCT Routine 04/29/2025 3:30 PM EDT Type 2 diabetes mellitus with hyperglycemia, with long-term current use of insulin ([facility]) PROPHYLAXIS - ADULT Routine 09/21/2024 1 1:00 AM EST Retained tooth root COMP ORAL EVALUATION - NEW/ESTABLISHED PATIENT Routine 09/21/2024 11:00 AM EST Retained tooth root REFERRAL TO PODIATRY Routine 01/14/2024 3:00 AM EDT Uncontrolled type 2 diabetes mellitus with hypoglycemia without coma ([facility]) REFERRAL TO DIABETIC RETINAL EXAM Routine 11/29/2023 3:00 AM EST Uncontrolled type 2 diabetes mellitus with hypoglycemia without coma ([facility]) HIV 1/2 AG & AB W/RFLX (4TH GEN) Routine 04/17/2022 9:55 AM EDT Routine lab draw HEPATITIS C AB W/RFLX HCV RNA, QT, RT PCR Routine 04/17/2022 9:55 AM EDT Routine lab draw from Last 3 Months or Most Recently Relevant to Health Maintenance Results * OTHER ORDERS SCANNED DOCUMENT (07/02/2025 3:00 AM EDT) Only the most recent of2 resultswithin the time period is included. 07/02/2025 3:[address] [facility] [facility] SCAN OTHER ORDERS Final Resu lt * REFERRAL SCANNED DOCUMENT (06/30/2025 3:00 AM EDT) Only the most recent of2 resultswithin the time period is included. 06/30/2025 3:00 AM EDT [employer] PA-C SCAN REFERRAL Final Result * (ABNORMAL) GLUCOSE, BLOOD BY GLUCOSE MONITORING DEVICE (CLIA WAIVED)POCT Routine (06/17/2025 3:07 PM EDT) Only the most recent of2 resultswithin the time period is included. GLUCOSE 113(A) 70 - 100 mg/dL [facility]- BACK OFFICE POCT Capillary Blood Blood / Unknown 3:07 PM EDT Nikolai Seema PharmD LAB - BLOOD DRAW Final Resu lt [facility]- BACK OFFICE POCT * REFERRAL TO NEPHROLOGY (06/11/2025 3:00 AM EDT) 06/11/2025 3:00 AM EDT Cassandra Moses PA-C REFERRAL Final Result * TSH W/RFLX FREE T4 Routine (06/09/2025 9:54 AM EDT) TSH W/REFLEX TO FT4 1.23 0.40 - 4.50 mIU/L 06/10/2025 4:58 AM EDT [employer] Blood Blood / Unknown 06/09/2025 9 :54 AM EDT 06/10/2025 2:36 AM EDT Narrative [employer] - 06/10/2025 5:20 AM EDT FASTING:NO Didi Stein PA-C LAB - BLOOD DRAW Final Resul t Performing Organization Address [facility] Co de Phone Number [employer] [address] [place] [phone], [employer] [address] [phone] * (ABNORMAL) URINALYSIS, COMPLETE W/REFLEX TO CULTURE Urine Routine (06/09/2025 9:54 AM EDT) COLOR YELLOW YELLOW 06/10/2025 3:17 AM EDT [employer] APPEARANCE CLEAR CLEAR 06/10/2025 3:17 AM EDT [employer] SPECIFIC GRAVITY 1.019 1.001 - 1.035 06/10/2025 3:17 AM EDT [employer] URINE PH 6.0 5.0 - 8.0 06/10/2025 3:17 AM EDT [employer] GLUCOSE NEGATIVE NEGATIVE 06/10/2025 3:17 AM EDT [employer] BILIRUBIN NEGATIVE NEGATIVE 06/10/2025 3:17 AM EDT [employer] [facility] KETONES NEGATIVE NEGATIVE 06/10/2025 3:17 AM EDT [facility] OCCULT BLOOD NEGATIVE NEGATIVE 06/10/2025 3:17 AM EDT [employer] [facility] URINE PROTEIN 1+(A) NEGATIVE 06/10/2025 3:17 AM EDT [employer] [facility] NITRITE NEGATIVE NEGATIVE 06/10/2025 3:17 AM EDT [employer] [facility] LEUKOCYTE ESTERASE NEGATIVE NEGATIVE 06/10/2025 3:17 AM EDT [employer] [facility] URINE LEUKOCYTES NONE SEEN 0 - 5 /HPF 06/10/2025 3:17 AM EDT [employer] [facility] RBC NONE SEEN 0 - 2 /HPF 06/10/2025 3:17 AM EDT [employer] [facility] SQUAMOUS EPITHELIAL CELLS NONE SEEN < OR = 5 /HPF 06/10/2025 3:17 AM EDT [employer] [facility] BACTERIA NONE SEEN NONE SEEN /HPF 06/10/2025 3:17 AM EDT [facility] HYALINE CAST NONE SEEN NONE SEEN /LPF 06/10/2025 3:17 AM EDT [employer] [facility] SEE NOTE SEE NOTE 06/10/2025 3:17 AM EDT [employer] [facility] Urine Urine specimen / Unknown 06/09/2025 9:54 AM EDT 06/10/2025 2:52 AM EDT Narrative [employer] [facility] - 06/10/2025 3:17 AM EDT FASTING:NO This urine was analyzed for the presence of WBC, RBC, bacteria, casts, and other formed elements. Only those elements seen were reported. . . us Didi Stein PA-C LAB URINE AMBULATORY Final R esult [employer] [address] [address], [employer] [address] [phone] * RFLX - REFLEXIVE URINE CULTURE Routine (06/09/2025 9:54 AM EDT) REFLEXIVE URINE CULTURE SEE NOTE 06/10/2025 3:17 AM EDT [facility] 06/09/2025 9:54 AM EDT 06/10/2025 2:52 AM EDT [facility] - 06/10/2025 3:17 AM EDT FASTING:NO NO CULTURE INDICATED Didi Stein PA-C LAB - MICROBIOLOGY AMBULATOR Y Final Result Performing Organization Address [facility] de Phone Number [employer] [address] [address], [employer] [address] [phone] * (ABNORMAL) MICROALBUMIN/CREATININE RATIO, URINE, RANDOM Urine Routine (06/09/2025 9:54 AM EDT) CREATININE, RANDOM URINE 165 20 - 320 mg/dL 06/10/2025 5:52 PM EDT [employer] [facility] MICROALBUMIN 12.2 mg/dL 06/10/2025 5:52 PM EDT [employer] [facility] MICROALBUMIN/CRE ATININE RATIO, RANDOM URINE 74(H) <30 mg/g creat 06/10/2025 5:52 PM EDT [facility] Urine Urine specimen / Unknown 06/09/2025 9:54 AM EDT 06/10/2025 2:07 AM EDT [facility] - 06/10/2025 5:58 PM EDT FASTING:NO Reference [...] AMBULATORY Final R esult Performing Organization Address [facility]/ZIP Co de Phone Number [employer] [address] [address], [employer] [address] [phone] * VITAMIN B12 & FOLATE Routine (06/09/2025 9:54 AM EDT) VITAMIN B12 391 200 - 1,100 pg/mL 06/10/2025 4:58 AM EDT [facility] FOLATE, SERUM 8.0 ng/mL 06/10/2025 4:58 AM EDT [facility] Blood Blood / Unknown 06/09/2025 9 :54 AM EDT 06/10/2025 2:36 AM EDT Narrative [facility] - 06/10/2025 5:20 AM EDT FASTING:NO [...] Low: <3.4 Borderline: 3.4-5.4 Normal: >5.4 . Didi Stein PA-C LAB - BLOOD DRAW Final Resul t [facility] [address] [address], [facility] [address] [address] * (ABNORMAL) BLOOD COUNT COMPLETE AUTO&AUTO DIFRNTL WBC Routine (06/09/2025 9:54 AM EDT) Pathologist Michela WHITE BLOOD CELL COUNT 8.3 3.8 - 10.8 Thousand/ uL 06/10/2025 3:49 AM EDT [facility] RED BLOOD CELL COUNT 4.47 4.20 - 5.80 Million/u L 06/10/2025 3:49 AM EDT [facility] HEMOGLOBIN 12.6(L) 13.2 - 17.1 g/dL 06/10/2025 3:49 AM EDT [facility] HEMATOCRIT 40.4 38.5 - 50.0 % 06/10/2025 3:49 AM EDT [facility] MCV 90.4 80.0 - 100.0 fL 06/10/2025 3:49 AM EDT [facility] MCH 28.2 27.0 - 33.0 pg 06/10/2025 3:49 AM [employer] [facility] MCHC 31.2(L) 32.0 - 36.0 g/dL 06/10/2025 3:49 AM [facility] RDW 15.4(H) 11.0 - 15.0 % 06/10/2025 3:49 AM [facility] PLATELET COUNT 353 140 - 400 Thousand/ uL 06/10/2025 3:49 AM [facility] MPV 9.5 7.5 - 12.5 fL 06/10/2025 3:49 AM [employer] [facility] ABSOLUTE NEUTROPHILS 4,723 1,500 - 7,800 cells/uL 06/10/2025 3:49 AM [facility] ABSOLUTE LYMPHOCYTES 2,150 850 - 3,900 cells/uL 06/10/2025 3:49 AM [email or web address] ABSOLUTE MONOCYTES 481 200 - 950 cells/uL 06/10/2025 3:49 AM [email or web address] [facility] ABSOLUTE EOSINOPHILS 896(H) 15 - 500 cells/uL 06/10/2025 3:49 AM [email or web address] [facility] ABSOLUTE BASOPHILS 50 0 - 200 cells/uL 06/10/2025 3:49 AM [email or web address] [facility] NEUTROPHILS PCT 56.9 % 3:49 AM [email or web address] [facility] LYMPHOCYTES 25.9 % 06/10/2025 3:49 AM [email or web address] [facility] MONOCYTES 5.8 % 06/10/2025 3:49 AM [email or web address] [facility] EOSINOPHILS 10.8 % 06/10/2025 3:49 AM [email or web address] [facility] BASOPHILS 0.6 % 06/10/2025 3:49 AM [email or web address] [facility] Blood Blood / Unknown 06/09/2025 9 :54 AM EDT 06/10/2025 2:39 AM EDT [employer] [facility] - 06/10/2025 3:54 AM EDT FASTING:NO For adults, a slight decrease in the calculated MCHC value (in the range of 30 to 32 g/dL) is most likely not clinically significant; however, it should be interpreted with caution in correlation with other red cell parameters and the patient's clinical condition. Didi Stein PA-C LAB - BLOOD DRAW Final Resul t Performing Organization Address [facility]/ZIP Co de Phone Number [facility] [address] [address], [facility] [address] [address] * (ABNORMAL) ASSAY OF PROSTATE SPECIFIC ANTIGEN TOTAL Routine (06/09/2025 9:54 AM EDT) PSA, TOTAL 25.31(H) < OR = 4.00 ng/mL 06/10/2025 4:58 AM EDT [employer] [facility] Blood Blood / Unknown 06/09/2025 9 :54 AM EDT 06/10/2025 2:36 AM EDT [facility] - 06/10/2025 5:20 AM EDT FASTING:NO The [...] DRAW Final Resul t Performing Organization Address [facility] Co de Phone Number [facility] [address] [address], [facility] [address] [address] * ASSAY OF MAGNESIUM Routine (06/09/2025 9:54 AM EDT) MAGNESIUM 2.1 1.5 - 2.5 mg/dL 06/10/2025 3:49 AM EDT [employer] [facility] Blood Blood / Unknown 06/09/2025 9 :54 AM EDT 06/10/2025 2:36 AM EDT [facility] - 06/10/2025 3:54 AM EDT FASTING:NO Didi Stein PA-C LAB - BLOOD DRAW Final Resul t Performing Organization Address [facility] Co de Phone Number [facility] [address] [address], [facility] [address] [address] * (ABNORMAL) HEMOGLOBIN GLYCOSYLATED A1C Routine (06/09/2025 9:54 AM EDT) HEMOGLOBIN A1C 8.1(H) <5.7 % 06/10/2025 4:00 PM EDT [employer] [facility] Blood Blood / Unknown 06/09/2025 9 :54 AM EDT 06/10/2025 2:39 AM EDT Narrative [facility] - 06/10/2025 4:05 PM EDT FASTING:NO For [...] DRAW Final Resul t Performing Organization Address [facility] Co de Phone Number [facility] [address] [address], [facility] [address] [address] * (ABNORMAL) 25 HYDROXY INCLUDES FRACTIONS IF PERFORMED Routine (06/09/2025 9:54 AM EDT) VITAMIN D, 25-OH, TOTAL 28(L) 30 - 100 ng/mL 06/10/2025 4:58 AM EDT [employer] [facility] Blood Blood / Unknown 06/09/2025 9 :54 AM EDT 06/10/2025 2:36 AM EDT [facility] - 06/10/2025 5:20 AM EDT FASTING:NO Vitamin D Status 25-OH Vitamin D: . Deficiency: <20 ng/mL Insufficiency: 20 - 29 ng/mL Optimal: > or = 30 ng/mL . For 25-OH Vitamin D testing on patients on D2-supplementation and patients for whom quantitation of D2 and D3 fractions is required, the QuestAssureD(TM) 25-OH VIT D, (D2,D3), LC/MS/MS is recommended: order code 94169 (patients >2yrs). . See Note 1 . Note 1 . For additional information, please refer to http://education.SparkWords/faq/TFY526 (This link is being provided for informational/ educational purposes only.) Didi Stein PA-C LAB - BLOOD DRAW Final Resul t [facility] [address] [address], [facility] [address] [address] * (ABNORMAL) LIPID PANEL Routine (06/09/2025 9:54 AM EDT) CHOLESTEROL, TOTAL 236(H) <200 mg/dL 06/10/2025 3:49 AM EDT [facility] HDL CHOLESTEROL 44 > OR = 40 mg/dL 06/10/2025 3:49 AM EDT [facility] TRIGLYCERIDES 190(H) <150 mg/dL 06/10/2025 3:49 AM EDT [facility] LDL-CHOLESTEROL 157(H) mg/dL (calc) 06/10/2025 3:49 AM EDT [facility] CHOL/HDLC RATIO 5.4(H) <5.0 (calc) 06/10/2025 3:49 AM EDT [facility] NON-HDL CHOLESTEROL 192(H) <130 mg/dL (calc) 06/10/2025 3:49 AM EDT [facility] Blood Blood / Unknown 06/09/2025 9 :54 AM EDT 06/10/2025 2:36 AM EDT Narrative [employer] - 06/10/2025 3:54 AM EDT FASTING:NO [...] LDL-C. Gerald HENNESSY et al. GIOVANNA. 2013;310(19): 4752-0816 (http://education.SparkWords/faq/VAG781) For patients with diabetes plus 1 major ASCVD risk factor, treating to a non-HDL-C goal of <100 mg/dL (LDL-C of <70 mg/dL) is considered a therapeutic option. Didi Stein PA-C LAB - BLOOD DRAW Final Resul t [facility] [address] [address], [facility] [address] [address] * (ABNORMAL) COMPREHENSIVE METABOLIC PANEL Routine (06/09/2025 9:54 AM EDT) GLUCOSE 63(L) 65 - 139 mg/dL 06/10/2025 3:49 AM EDT [facility] UREA NITROGEN (BUN) 16 7 - 25 mg/dL 06/10/2025 3:49 AM [facility] CREATININE (blood) 1.50(H) 0.70 - 1.35 mg/dL 06/10/2025 3:49 AM [employer] [facility] EGFR 51(L) > OR = 60 mL/min/1. 73m2 06/10/2025 3:49 AM [facility] BUN/CREATININE RATIO 11 6 - 22 (calc) 06/10/2025 3:49 AM EDT [employer] [facility] SODIUM 139 135 - 146 mmol/L 06/10/2025 3:49 AM [employer] POTASSIUM 4.5 3.5 - 5.3 mmol/L 06/10/2025 3:49 AM [employer] CHLORIDE 104 98 - 110 mmol/L 06/10/2025 3:49 AM [employer] CARBON DIOXIDE 27 20 - 32 mmol/L 06/10/2025 3:49 AM EDT [facility] CALCIUM 8.8 8.6 - 10.3 mg/dL 06/10/2025 3:49 AM EDT [facility] PROTEIN, TOTAL 7.2 6.1 - 8.1 g/dL 06/10/2025 3:49 AM EDT [facility] ALBUMIN 3.8 3.6 - 5.1 g/dL 06/10/2025 3:49 AM EDT [facility] GLOBULIN 3.4 1.9 - 3.7 g/dL (calc) 06/10/2025 3:49 AM EDT [facility] ALBUMIN/GLOBULI N RATIO 1.1 1.0 - 2.5 (calc) 06/10/2025 3:49 AM EDT [facility] BILIRUBIN, TOTAL 0.3 0.2 - 1.2 mg/dL 06/10/2025 3:49 AM EDT [facility] ALKALINE PHOSPHATASE 104 35 - 144 U/L 06/10/2025 3:49 AM EDT [facility] AST 13 10 - 35 U/L 06/10/2025 3:49 AM EDT [facility] ALT 15 9 - 46 U/L 06/10/2025 3:49 AM EDT [facility] Blood Blood / Unknown 06/09/2025 9 :54 AM EDT 06/10/2025 2:36 AM EDT Narrative [facility] - 06/10/2025 3:54 AM EDT FASTING:NO . Non-fasting reference interval . Didi Stein PA-C LAB - BLOOD DRAW Final Resul t [facility] [employer] [address] [address], [facility] [address] [address] * HEALTH HISTORY SCANNED DOCUMENT (06/08/2025 3:00 AM EDT) 06/08/2025 3:00 AM EDT [facility] Provider Default SCAN OTHER ORDERS Final Re sult * REFERRAL TO PODIATRY (01/14/2024 3:00 AM EDT) 01/14/2024 3:00 AM EDT Result [facility] Cassandrachary Ortegana PA-C REFERRAL Final Result * REFERRAL FOR DIABETIC RETINAL EXAM (11/29/2023 3:00 AM EST) 11/29/2023 3:00 AM EST Result [facility] [employer] PA-C REFERRAL Final Result * Hep C Antibody with Reflex HCV RNA (04/17/2022 9:55 AM EDT) HEPATITIS C ANTIBODY NON-REACT ANTHONY NON-REACT ANTHONY [facility] SIGNAL TO CUT-OFF 0.11 <1.00 [facility] Comment: HCV antibody was non-reactive. There is no laboratory evidence of HCV infection. In most cases, no further action is required. However, if recent HCV exposure is suspected, a test for HCV RNA (test code 02401) is suggested. For additional information please refer to http://education.Viibar/faq/ONU19t3 (This link is being provided for informational/ educational purposes only.) Blood Blood / Unknown 04/17/2022 9 :55 AM EDT 04/17/2022 9:56 AM EDT Result [facility] [employer] PA-C LAB - BLOOD DRAW Edited Resu lt - Final [facility] [address] [address], [facility] [address] [address] * HIV Ag & Ab with Reflex Western Blot (04/17/2022 9:55 AM EDT) HIV AG/AB, 4TH GEN NON-REAC TIVE NON-REAC TIVE [facility] Comment: HIV-1 antigen and HIV-1/HIV-2 antibodies were [...] purpose. For additional information please refer to http://education.Viibar/faq/XOZ520 (This link is being provided for informational/ educational purposes only.) The performance of this assay has not been clinically validated in patients less than 2 years old. Blood Blood / Unknown 04/17/2022 9 :55 AM EDT 04/17/2022 9:56 AM EDT Cassandra Moses PA-C LAB - BLOOD DRAW Final Resul t [facility] [employer] [facility] [address] [address], [facility] [address] [address] from Last 3 Months or Most Recently Relevant to Health Maintenance Insurance [place] MEDICA[place] D[facility]AL [facility] [place] [id number] Care Teams Medical I D Sales Relationship Specialty Start Date End Date Cassandra Moses PA-C [address] [place] [id number] PCP - General Internal Medicine 12/06/21
--- OUTSIDE RECORDS SUMMARY | 2025-07-13 11:02 | XMS_ITS | Clinical Summary ---
Author Organization [facility] Address [address] [address] Phone Care Team Providers Care Budget Report Clerk Name Role Phone Unavailable Primary Care Provider [...] age to complete this topic Insurance Medicaid [place] [facility] Medicare UHC Medicare Medicaid [place]
== END 2025-07-13 09:49 | disposition home or self-care (01) ==
LOC: HO.HKA 08:57
PROVIDERS: PCP Physician Assistant; Visit Provider Internal Medicine Hypertension Specialist
DX: N17.9 Acute kidney failure, unspecified (principal)
CPT/HCPCS: 99214

== ENCOUNTER → 2025-07-13 08:57 | Outpatient (BNVA) | payer OTHER, SELFPAY | PROVIDERS: PCP Physician Assistant; Visit Provider Internal Medicine Hypertension Specialist | DX: E11.9 Type 2 diabetes mellitus without complications (principal); N18.30 Chronic kidney disease, stage 3 unspecified; N17.9 Acute kidney failure, unspecified; I51.7 Cardiomegaly | CPT/HCPCS: 99212 ==

== ENCOUNTER 2025-07-22 09:15 | Outpatient (AMB) | payer OTHER, SELFPAY ==
--- OUTSIDE RECORDS SUMMARY | 2024-04-02 06:49 | XMS_ITS | Continuity of Care Document ---
Author Organization [facility] Address [address] [address] Phone Care Team Providers Care Coke Wheeler Name Role Phone Shelly Horvath OT Unavailable Unavailable Advance Directives Directive Yes / No Effective Date File Name No Information Encounters Encounter Description Practice Location Reason(s) For Visit Diagnoses Date Provider [facility], [address] [address], [place], [place], [id number], [place] tel:[phone] [facility] No Information 2023 Alexandru Bravo. [address] [place], [id number], [place]. tel:[phone] Family History Family Member Type Diagnosis Age [...]
[2025-07-22 09:26] VITALS: BMI 31.6
--- NOTE | 2025-07-22 09:26 | A.OFFVIS_ITS ---
Vital Signs 07/22/25 09:26 Height 6 ft 2 in Weight 246 lb BMI 31.6 Intake Visit Reasons: follow up for osteo Intake Note: Hospital Follow up Left Great toe osteo Biomedical Equipment Support Specialist Required: No Allergies No Known Drug Allergies Allergy (Verified 07/22/25 09:29) Unknown HPI HPI follow up for osteo: Details: The patient is a 65-year-old male presenting for evaluation of arterial insufficiency and post hospital follow-up from 05/20/2025. He had an x-ray of the left great toe which was concerning for osteomyelitis. Of note he has a history of diabetes, coronary artery disease, CKD 3. The patient has a history of arterial insufficiency, which necessitates regular monitoring of blood flow to his legs. An ultrasound of the arteries is planned to assess the current status of blood flow. The patient also has a history of foot surgery due to a fall, which required the placement of screws of left foot. The surgical intervention was necessary to address the injuries sustained from the fall. [facility] Medical History Osteomyelitis CKD (chronic kidney disease) stage 3, GFR 30-59 ml/min Class 1 obesity Social History Household Members: Spouse Housing: Apartment Do you presently have visiting nurse or other home services: Yes ([employer]) Patient Tobacco Use Status: Never used Tobacco e-Cigarette/Vaping Use: Never Used service: No Review of Systems Const All systems reviewed & are unremarkable except as noted in HPI and below Reports no additional complaints ENT Reports Normal hearing present Card Denies chest pain, Denies chest pain at rest, Denies chest pain with activity and Denies pedal edema Resp Denies cough GI Denies abdominal pain Musc Denies abnormal gait, Denies muscle cramps and Denies radiating pain into limb Skin/Breast Denies skin ulcer and Denies wounds Neuro Reports Normal hearing present and Denies abnormal gait Psych Reports no additional complaints Physical Exam Vital Signs: BMI result Body Mass Index 31.6 Const General: cooperative, healthy appearing and comfortable Orientation/consciousness: oriented to person, oriented to place and oriented to time HEENT Head: Yes normal to inspection Neck Neck: Yes normal visual inspection Carotids: no bruits Chest Chest palpation & inspection: normal inspection of the chest Resp Effort & Inspection: normal respiratory effort and able to speak in complete sentences Auscultation: clear to auscultation bilaterally, no crackles, no rales, no rhonchi and no wheezes Cardio Other: Bilateral DP signals Rate: regular rate Rhythm: regular rhythm Heart sounds: S1 normal heart sound present and S2 normal heart sound present Bruits: no carotid bruits GI Inspection: Yes normal to inspection Skin Wounds: no wounds Hair: normal Neuro General: oriented to person, oriented to place and oriented to time Cranial nerves: Yes CN's II-XII intact bilaterally and Yes Normal hearing present Cognition (Neuro): normal cognition Motor exam (neuro): 5/5 motor strength present throughout Extrem Other: venous exam: No significant superficial varicosities or spider telangiectasias, minimal edema General: No clubbing, No cyanosis and No edema Psych Appearance: grossly normal Mental Status: mental status grossly normal Speech and movement: Normal speech and movement present Assessment & Plan Assessment & Plan (1) PAD (peripheral artery disease): Code(s): I73.9 - Peripheral vascular disease, unspecified Category: Medical Plan: I discussed with the patient the need for an ultrasound to assess the blood flow to his legs due to arterial insufficiency. We did discuss routine risk factor modification. His great toe appears to be healed at the current time and may require podiatric evaluation in the future. Thank you for allowing us to assist in his care. If there are any questions or concerns please do not hesitate to contact us. Orders: Orders US arterial duplex LE BI Today I73.9 - Peripheral vascular disease, unspecified Coding Level of Care Code Est Pt Level 4 (80269) Complex EM visit Add On G2211 Diagnoses PAD (peripheral artery disease) I73.9
--- OUTSIDE RECORDS SUMMARY | 2025-07-22 10:13 | XMS_ITS | Clinical Summary ---
Author Organization [facility] Address [address] [place] [address] Phone Care Team Providers Care Night Monitor Name Role Phone Cassandra Moses Primary Care [...] Description 08/26/2025 12:30 PM EDT Ancillary Procedure [facility] [address] [place] [address] Health Maintenance Due Date Last [...] [facility] LAB BLOOD ORDERABLES Fi nal Result [facility] [address] [place] [address], * (ABNORMAL) Basic metabolic panel (11/16/2024 3:55 [...] MD LAB BLOOD ORDERABLES Final Res ult [facility] [address] [place] [address], * (ABNORMAL) Hemoglobin A1c (11/15/2024 1:54 PM EST) Hemoglobin A1C 13.5(H) <6.5 % LAB CHEMISTRY METHOD 11/16/2024 1:32 PM EST [facility] Mean Bld Glu Estim. 341 mg/dL LAB CHEMISTRY METHOD 11/16/2024 1:32 PM EST [facility] Blood Venous blood specimen / Unknown Venipuncture / Unknown 11/15/2024 1:54 PM EST 11/15/2024 2:08 PM EST us Nan [facility] LAB BLOOD ORDERABLES Fi nal Result [facility] ([facility] [address] [place] [address], [place] [phone] from Last 3 Months or Most Recently Relevant to Health Maintenance Insurance [facility] Member Subscriber Plan / Payer (Ef fective 2025-Present) Name:Yanick Power Relation to Subscriber:Self Name:Yanick Arita Payer ID:[id number] Group ID:[id number] Type:Not on file Address: [place] [address] [place] [id number] Advance Directives * Full Code - Default [...] currently active code status orders. Care Teams Night Monitor Relationship Specialty Start Date End Date Cassandra Moses PA [address] [place] [address] PCP - General 07/12/22
--- OUTSIDE RECORDS SUMMARY | 2025-07-22 10:13 | XMS_ITS | Clinical Summary ---
Author Organization [facility] Address [address] [address] Phone Care Team Providers Care Non Linear Editor Name Role Phone Unavailable Primary Care Provider [...] failure 08/15/2022 Type 2 diabetes mellitus 08/15/2022 Post-traumatic stress disorder 07/05/2022 Hypothyroidism 04/18/2022 Gout 04/18/2022 [...] age to complete this topic Insurance [place] [facility] Medicare UHC [place]
--- OUTSIDE RECORDS SUMMARY | 2025-07-22 10:13 | XMS_ITS | Clinical Summary ---
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 Diabetic shoes [...] complication, with long-term current use of insulin ([facility]),Essenti al (primary) hypertension,At risk for falling,Diabetic feet ([facility]) by miscellaneous route daily. Diabetic shoes size 11.5 for daily use. Diagnosis diabetes, obesity. Length of need 99 months 1 Each 10/27/20 24 Active pen needle, diabetic 31 gauge x 5/16 ndleIndications: Type 2 diabetes mellitus with hyperglycemia, with long-term current use of insulin ([facility]) To inject insulin 4 times daily. 100 Each 11/06/19 Active blood-glucose sensor (FREESTYLE MAIDA 3 PLUS SENSOR) deviIndications: Type 2 diabetes mellitus with hyperglycemia, with long-term current use of insulin ([facility]) Place 1 sensor to back of upper arm every 15 days. Use to monitor blood sugar continuously (Freestyle Maida 3 Plus) 2 Each 11/20/19 25 Active blood-glucose meter,continuous (FREESTYLE MAIDA 3 READER) miscIndications: Type 2 diabetes mellitus with hyperglycemia, with long-term current use of insulin ([facility]) 1 Units by miscellaneous route daily. To check BS daily. 1 Each 11/20/19 25 Active blood sugar diagnostic stripsIndication s:Type 2 diabetes mellitus with hyperglycemia, with long-term current use of insulin ([facility]) 1 Each 4 (four) times daily [...] unspecified HF chronicity, unspecified heart failure type ([facility]) TOME 1 TABLETA POR VIA [...] hyperglycemia, with long-term current use of insulin ([facility]) Inject 1.5 mg into the skin once a week. 2 mL 2 05/03/20 25 Active atorvastatin (LIPITOR) 80 mg tabletIndication s:Essential (primary) hypertension Take 1 Tablet by mouth nightly at bedtime. 90 Tablet 1 06/09/20 25 Active insulin lispro 100 unit/mL injection penIndications:T ype 2 diabetes mellitus with hyperglycemia, with long-term current use of insulin ([facility]) SLIDING SCALE 3 times a day 100-149: 15 units, 150-199: 18 units, 200-249: 21 units, 250-299: 24 units, 300-349: 27 units, 350-399: 30 units.. 15 mL 1 06/17/20 25 Active TRESIBA FLEXTOUCH U-100 100 unit/mL (3 mL)Indications:T ype 2 diabetes mellitus with hyperglycemia, with long-term current use of insulin ([facility]) INJECT 32 UNITS INTO THE SKIN EVERY MORNINGStrength: 100 unit/mL (3 mL). 15 mL 1 06/17/20 25 Active Active Problems Problem Noted Date Diagnosed Date Class 1 obesity due to exces s calories with serious comorbidity and body mass index (BMI) of 31.0 to 31.9 in adult 12/23/2023 PTSD (post-traumatic stress disorder) 07/05/2022 Generalized anxiety disorder 05/09/2022 Constipation 04/18/2022 Exacerbation of asthma ([facility]) 04/18/2022 Gout 04/18/2022 Hypothyroidism 04/18/2022 Type 2 diabetes mellitus wit h hyperglycemia, with long-term current use of insulin ([facility]) 04/18/2022 Congestive heart failure ([facility]) 022 Elevated prostate specific antigen (PSA) 022 Overview (06/02/2025): 01/25/2025 - [facility] - Dx: Elevated PSA - F/u with MRI of prostate - TRUSP bx w f/u Pneumonia due to coronavirus disease 2019 (CODE) 02/04/2022 Acute kidney failure, unspecified ([facility]) 01/31/2022 Essential (primary) hypertension 01/31/2022 Stage 3 chronic kidney disease ([facility]) 0 01/31/2022 Encounters Date Type Department Care Team Description 06/17/2025 3:00 PM EDT Office Visit [address] [phone] Nikolai Stephenson, Magali Orourke 06/09/2025 9:00 AM EDT Office Visit [address] [phone] Didi Stein PA-C 06/09/2025 Interim Notes [address] [phone] Abena Martinez MA 04/29/2025 3:40 PM EDT Interim Notes [facility] [address] [place] [address] 04/29/2025 3:20 PM EDT Office Visit [address] [address] Nikolai Stephenson, PharmD Jesenia Sampson from Last [...] Description 07/26/2025 10:20 AM EDT Telemedicine Visit [address] [phone] Didi Stein PA-C [address] [place] [phone] 08/10/2025 1:00 PM EDT Interim Notes [facility] [address] [place] [phone] 08/10/2025 1:20 PM EDT Office Visit [address] [phone] Nikolai Stephenson, PharmD [facility] [place] [address] 08/10/2025 2:10 PM EDT Interim Notes [address] [phone] Health Maintenance Due Date Last Done Comments Anxiety Screening 1960 Dental FMX/Pano 1960 Medicare Annual Wellness Visit 02/22/1978 Imm-DTaP/Tdap/Td (1 - Tdap) 02/22/1979 CT Colonography 02/22/2005 Colonoscopy 02/22/2005 Colorectal Cancer Screening 02/22/2005 FIT/gFOBT 02/22/2005 Fecal DNA 02/22/2005 Flexible Sigmoidoscopy 02/22/2005 Imm-Zoster, Recombinant (1 of 2) 02/22/2010 Retinopathy Screening 11/29/2024 11/29/2023 Abdominal Aortic Aneurysm Screening 02/22/2025 Falls Prevention 02/22/2025 Dental Prophy 03/23/2025 09/21/2024 [id number] ( season) 2025 023, 02/15/2022 Imm-Influenza (#1) [...] Procedure Name Priority Date/Time Associated Diagnosis Comments REFERRAL SCANNED DOCUMENT 07/13/2025 3:00 AM EDT OTHER ORDERS SCANNED DOCUMENT 07/02/2025 3:00 AM EDT REFERRAL SCANNED DOCUMENT 06/30/2025 3:00 AM EDT OTHER ORDERS SCANNED DOCUMENT 06/23/2025 3:00 AM EDT GLUCOSE, BLOOD BY GLUCOSE MONITORING DEVICE (CLIA WAIVED)POCT Routine 06/17/2025 3:07 PM EDT Type 2 diabetes mellitus with hyperglycemia, with long-term current use of insulin ([facility]) REFERRAL TO NEPHROLOGY Urgent 06/11/2025 3:00 AM EDT Stage 3b chronic kidney disease ([facility]) RFLX - REFLEXIVE URINE CULTURE Routine 06/09/2025 9:54 AM EDT ASSAY OF PROSTATE SPECIFIC ANTIGEN TOTAL Routine 06/09/2025 9:54 AM EDT Routine general medical examination at a [facility] care facility Class 1 obesity due to excess calories with serious comorbidity and body mass index (BMI) of 30.0 to 30.9 in adult Type 2 diabetes mellitus with hyperglycemia, with long-term current use of insulin ([facility]) Congestive heart failure, unspecified HF chronicity, unspecified heart failure type ([facility]) Hypothyroidism, unspecified type Stage 3 chronic kidney disease, unspecified whether stage 3a or 3b CKD ([facility]) Elevated prostate specific antigen (PSA) Mild vitamin D deficiency VITAMIN B12 & FOLATE Routine 06/09/2025 9:54 AM EDT Routine general medical examination at a [facility] Class 1 obesity due to excess calories with serious comorbidity and body mass index (BMI) of 30.0 to 30.9 in adult Type 2 diabetes mellitus with hyperglycemia, with long-term current use of insulin ([facility]) Congestive heart failure, unspecified HF chronicity, unspecified heart failure type ([facility]) Hypothyroidism, unspecified type Stage 3 chronic kidney disease, unspecified whether stage 3a or 3b CKD ([facility]) Elevated prostate specific antigen (PSA) Mild vitamin D deficiency ASSAY OF MAGNESIUM Routine 06/09/2025 9: 54 AM EDT Routine general medical examination at a [facility] facility Class 1 obesity due to excess calories with serious comorbidity and body mass index (BMI) of 30.0 to 30.9 in adult Type 2 diabetes mellitus with hyperglycemia, with long-term current use of insulin ([facility]) Congestive heart failure, unspecified HF chronicity, unspecified heart failure type ([facility]) Hypothyroidism, unspecified type Stage 3 chronic kidney disease, unspecified whether stage 3a or 3b CKD ([facility]) Elevated prostate specific antigen (PSA) Mild vitamin D deficiency 25 HYDROXY INCLUDES FRACTIONS IF PERFORMED Routine 06/09/2025 9:54 AM EDT Routine general medical examination at a [facility] facility Class 1 obesity due to excess calories with serious comorbidity and body mass index (BMI) of 30.0 to 30.9 in adult Type 2 diabetes mellitus with hyperglycemia, with long-term current use of insulin ([facility]) Congestive heart failure, unspecified HF chronicity, unspecified heart failure type ([facility]) Hypothyroidism, unspecified type Stage 3 chronic kidney disease, unspecified whether stage 3a or 3b CKD ([facility]) Elevated prostate specific antigen (PSA) Mild vitamin D deficiency BLOOD COUNT COMPLETE AUTO&AUTO DIFRNTL WBC Routine 06/09/2025 9:54 AM EDT Routine general medical examination at a [facility] facility Class 1 obesity due to excess calories with serious comorbidity and body mass index (BMI) of 30.0 to 30.9 in adult Type 2 diabetes mellitus with hyperglycemia, with long-term current use of insulin ([facility]) Congestive heart failure, unspecified HF chronicity, unspecified heart failure type ([facility]) Hypothyroidism, unspecified type Stage 3 chronic kidney disease, unspecified whether stage 3a or 3b CKD ([facility]) Elevated prostate specific antigen (PSA) Mild vitamin D deficiency COMPREHENSIVE METABOLIC PANEL Routine 06/09/2025 9:54 AM EDT Routine general medical examination at a [facility] facility Class 1 obesity due to excess calories with serious comorbidity and body mass index (BMI) of 30.0 to 30.9 in adult Type 2 diabetes mellitus with hyperglycemia, with long-term current use of insulin ([facility]) Congestive heart failure, unspecified HF chronicity, unspecified heart failure type ([facility]) Hypothyroidism, unspecified type Stage 3 chronic kidney disease, unspecified whether stage 3a or 3b CKD ([facility]) Elevated prostate specific antigen (PSA) Mild vitamin D deficiency LIPID PANEL Routine 06/09/2025 9:54 AM EDT Routine general medical examination at a health care facility Class 1 obesity due to excess calories with serious comorbidity and body mass index (BMI) of 30.0 to 30.9 in adult Type 2 diabetes mellitus with hyperglycemia, with long-term current use of insulin ([facility]) Congestive heart failure, unspecified HF chronicity, unspecified heart failure type ([facility]) Hypothyroidism, unspecified type Stage 3 chronic kidney disease, unspecified whether stage 3a or 3b CKD ([facility]) Elevated prostate specific antigen (PSA) Mild vitamin D deficiency TSH W/RFLX FREE T4 Routine 06/09/2025 9: 54 AM EDT Routine general medical examination at a [facility] facility Class 1 obesity due to excess calories with serious comorbidity and body mass index (BMI) of 30.0 to 30.9 in adult Type 2 diabetes mellitus with hyperglycemia, with long-term current use of insulin ([facility]) Congestive heart failure, unspecified HF chronicity, unspecified heart failure type ([facility]) Hypothyroidism, unspecified type Stage 3 chronic kidney disease, unspecified whether stage 3a or 3b CKD ([facility]) Elevated prostate specific antigen (PSA) Mild vitamin D deficiency HEMOGLOBIN GLYCOSYLATED A1C Routine 06/09/2025 9:54 AM EDT Routine general medical examination at a [facility] facility Class 1 obesity due to excess calories with serious comorbidity and body mass index (BMI) of 30.0 to 30.9 in adult Type 2 diabetes mellitus with hyperglycemia, with long-term current use of insulin ([facility]) Congestive heart failure, unspecified HF chronicity, unspecified heart failure type ([facility]) Hypothyroidism, unspecified type Stage 3 chronic kidney disease, unspecified whether stage 3a or 3b CKD ([facility]) Elevated prostate specific antigen (PSA) Mild vitamin D deficiency URINALYSIS, COMPLETE W/REFLEX TO CULTURE Routine 06/09/2025 9:54 AM EDT Routine general medical examination at a [facility] care facility Class 1 obesity due to excess calories with serious comorbidity and body mass index (BMI) of 30.0 to 30.9 in adult Type 2 diabetes mellitus with hyperglycemia, with long-term current use of insulin ([facility]) Congestive heart failure, unspecified HF chronicity, unspecified heart failure type ([facility]) Hypothyroidism, unspecified type Stage 3 chronic kidney disease, unspecified whether stage 3a or 3b CKD ([facility]) Elevated prostate specific antigen (PSA) Mild vitamin D deficiency MICROALBUMIN/CREATINI NE RATIO, URINE, RANDOM Routine 06/09/2025 9:54 AM EDT Routine general medical examination at a [facility] facility Class 1 obesity due to excess calories with serious comorbidity and body mass index (BMI) of 30.0 to 30.9 in adult Type 2 diabetes mellitus with hyperglycemia, with long-term current use of insulin ([facility]) Congestive heart failure, unspecified HF chronicity, unspecified heart failure type ([facility]) Hypothyroidism, unspecified type Stage 3 chronic kidney disease, unspecified whether stage 3a or 3b CKD ([facility]) Elevated prostate specific antigen (PSA) Mild vitamin D deficiency HEALTH HISTORY SCANNED DOCUMENT 06/08/2025 3:00 AM EDT REFERRAL SCANNED DOCUMENT 05/31/2025 3:00 AM EDT GLUCOSE, BLOOD BY GLUCOSE MONITORING DEVICE (CLIA WAIVED)POCT Routine 04/29/2025 3:30 PM EDT Type 2 diabetes mellitus with hyperglycemia, with long-term current use of insulin ([facility]) PROPHYLAXIS - ADULT Routine 09/21/2024 1 1:00 AM EST Retained tooth root COMP ORAL EVALUATION - NEW/ESTABLISHED PATIENT Routine 09/21/2024 11:00 AM EST Retained tooth root REFERRAL TO PODIATRY Routine 01/14/2024 3:00 AM EDT Uncontrolled type 2 diabetes mellitus with hypoglycemia without coma ([facility] REFERRAL TO DIABETIC RETINAL EXAM Routine 11/29/2023 3:00 AM EST Uncontrolled type 2 diabetes mellitus with hypoglycemia without coma ([facility]) HIV 1/2 AG & AB W/RFLX (4TH GEN) Routine 04/17/2022 9:55 AM EDT Routine lab draw HEPATITIS C AB W/RFLX HCV RNA, QT, RT PCR Routine 04/17/2022 9:55 AM EDT Routine lab draw from Last 3 Months or Most Recently Relevant to Health Maintenance Results * REFERRAL SCANNED DOCUMENT (07/13/2025 3:00 AM EDT) Only the most recent of3 resultswithin the time period is included. 07/13/2025 3:00 AM EDT Result [facility] PA-C SCAN REFERRAL Final Result * OTHER ORDERS SCANNED DOCUMENT (07/02/2025 3:00 AM EDT) Only the most recent of2 resultswithin the time period is included. 07/02/2025 3:00 AM EDT Result [facility] [employer] PA-C SCAN OTHER ORDERS Final Resu lt * (ABNORMAL) GLUCOSE, BLOOD BY GLUCOSE MONITORING DEVICE (CLIA WAIVED)POCT Routine (06/17/2025 3:07 PM EDT) Only the most recent of2 resultswithin the time period is included. GLUCOSE 113(A) 70 - 100 mg/dL [facility] BACK OFFICE POCT Capillary Blood Blood / Unknown 3:07 PM EDT Result [facility] Nikolai Stephenson PharmD LAB - BLOOD DRAW Final Resu lt [facility] PO[facility] * REFERRAL TO NEPHROLOGY (06/11/2025 3:00 AM EDT) 06/11/2025 3:00 AM EDT Cassandra Moses PA-C REFERRAL Final Result * TSH W/RFLX FREE T4 Routine (06/09/2025 9:54 AM EDT) TSH W/REFLEX TO FT4 1.23 0.40 - 4.50 mIU/L 06/10/2025 4:58 AM EDT [facility] Blood Blood / Unknown 06/09/2025 9 :54 AM EDT 06/10/2025 2:36 AM EDT Narrative [facility] - 06/10/2025 5:20 AM EDT FASTING:NO us Didi Stein PA-C LAB - BLOOD DRAW Final Resul t [facility] [address] [address], [facility] [address] [address] * (ABNORMAL) URINALYSIS, COMPLETE W/REFLEX TO CULTURE Urine Routine (06/09/2025 9:54 AM EDT) COLOR YELLOW YELLOW 06/10/2025 3:17 AM Clean [facility] APPEARANCE CLEAR CLEAR 06/10/2025 3:17 AM EDSentropi [facility] SPECIFIC GRAVITY 1.019 1.001 - 1.035 06/10/2025 3:17 AM Clean [facility] URINE PH 6.0 5.0 - 8.0 06/10/2025 3:17 AM Clean [facility]Q [place] [employer] GLUCOSE NEGATIVE NEGATIVE 06/10/2025 3:17 AM Clean Te[facility] BILIRUBIN NEGATIVE NEGATIVE 06/10/2025 3:17 AM Clean Te[facility] KETONES NEGATIVE NEGATIVE 06/10/2025 3:17 AM EDSentropi [facility] OCCULT BLOOD NEGATIVE NEGATIVE 06/10/2025 3:17 AM EDSentropi [facility] URINE PROTEIN 1+(A) NEGATIVE 06/10/2025 3:17 AM Clean [facility] NITRITE NEGATIVE NEGATIVE 06/10/2025 3:17 AM Clean Te[facility] LEUKOCYTE ESTERASE NEGATIVE NEGATIVE 06/10/2025 3:17 AM Clean [facility] URINE LEUKOCYTES NONE SEEN 0 - 5 /HPF 06/10/2025 3:17 AM EDSentropi [facility] RBC NONE SEEN 0 - 2 /HPF 06/10/2025 3:17 AM Clean [facility] SQUAMOUS EPITHELIAL CELLS NONE SEEN < OR = 5 /HPF 06/10/2025 3:17 AM Clean Te[facility] BACTERIA NONE SEEN NONE SEEN /HPF 06/10/2025 3:17 AM EDT [facility] HYALINE CAST NONE SEEN NONE SEEN /LPF 06/10/2025 3:17 AM EDT [facility] SEE NOTE SEE NOTE 06/10/2025 3:17 AM EDT [facility] Urine Urine specimen / Unknown 06/09/2025 9:54 AM EDT 06/10/2025 2:52 AM EDT [facility] - 06/10/2025 3:17 AM EDT FASTING:NO This urine was analyzed for the presence of WBC, RBC, bacteria, casts, and other formed elements. Only those elements seen were reported. . . us Didi Stein PA-C LAB URINE AMBULATORY Final R esult Performing Organization Address City/[facility] Co de Phone Number [employer] [address] [address], [employer] [address] [address] * RFLX - REFLEXIVE URINE CULTURE Routine (06/09/2025 9:54 AM EDT) REFLEXIVE URINE CULTURE SEE NOTE 06/10/2025 3:17 AM EDT [facility] 06/09/2025 9:54 AM EDT 06/10/2025 2:52 AM EDT [facility] - 06/10/2025 3:17 AM EDT FASTING:NO NO CULTURE INDICATED Didi Stein PA-C LAB - MICROBIOLOGY AMBULATOR Y Final Result Performing Organization Address [facility] Co de Phone Number [facility] [address] [address], [employer] [address] [address] * (ABNORMAL) MICROALBUMIN/CREATININE RATIO, URINE, RANDOM Urine Routine (06/09/2025 9:54 AM EDT) CREATININE, RANDOM URINE 165 20 - 320 mg/dL 06/10/2025 5:52 PM EDT [facility] MICROALBUMIN 12.2 mg/dL 06/10/2025 5:52 PM EDT [facility] MICROALBUMIN/CRE ATININE RATIO, RANDOM URINE 74(H) <30 mg/g creat 06/10/2025 5:52 PM EDT [facility] Urine Urine specimen / Unknown 06/09/2025 9:54 AM EDT 06/10/2025 2:07 AM EDT [facility] - 06/10/2025 5:58 PM EDT FASTING:NO Reference [...] patient to be within a diagnostic category. Didi Stein PA-C LAB URINE AMBULATORY Final R esult [employer] [address] [place] [address], [facility] [address] [address] * VITAMIN B12 & FOLATE Routine (06/09/2025 9:54 AM EDT) VITAMIN B12 391 200 - 1,100 pg/mL 06/10/2025 4:58 AM EDT [facility] FOLATE, SERUM 8.0 ng/mL 06/10/2025 4:58 AM EDT [facility] Blood Blood / Unknown 06/09/2025 9 :54 AM EDT 06/10/2025 2:36 AM EDT [facility] - 06/10/2025 5:20 AM EDT FASTING:NO . [...] LAB - BLOOD DRAW Final Resul t [employer] [address] [address], [facility] [address] [place] [address] * (ABNORMAL) BLOOD COUNT COMPLETE AUTO&AUTO DIFRNTL WBC Routine (06/09/2025 9:54 AM EDT) [facility] WHITE BLOOD CELL COUNT 8.3 3.8 - 10.8 Thousand/ uL 06/10/2025 3:49 AM EDT [facility] RED BLOOD CELL COUNT 4.47 4.20 - 5.80 Million/u L 06/10/2025 3:49 AM EDT [facility] HEMOGLOBIN 12.6(L) 13.2 - 17.1 g/dL 06/10/2025 3:49 AM EDT [facility] HEMATOCRIT 40.4 38.5 - 50.0 % 06/10/2025 3:49 AM EDT [facility] MCV 90.4 80.0 - 100.0 fL 06/10/2025 3:49 AM EDT [facility] MCH 28.2 27.0 - 33.0 pg 06/10/2025 3:49 AM EDT [facility] MCHC 31.2(L) 32.0 - 36.0 g/dL 06/10/2025 3:49 AM EDT [facility] RDW 15.4(H) 11.0 - 15.0 % 06/10/2025 3:49 AM EDT [facility] PLATELET COUNT 353 140 - 400 Thousand/ uL 06/10/2025 3:49 AM EDT [facility] MPV 9.5 7.5 - 12.5 fL 06/10/2025 3:49 AM EDT [facility] ABSOLUTE NEUTROPHILS 4,723 1,500 - 7,800 cells/uL 06/10/2025 3:49 AM EDT [facility] ABSOLUTE LYMPHOCYTES 2,150 850 - 3,900 cells/uL 06/10/2025 3:49 AM EDChelaile ABSOLUTE MONOCYTES 481 200 - 950 cells/uL 06/10/2025 3:49 AM EDT [facility] ABSOLUTE EOSINOPHILS 896(H) 15 - 500 cells/uL 06/10/2025 3:49 AM EDT [facility] ABSOLUTE BASOPHILS 50 0 - 200 cells/uL 06/10/2025 3:49 AM EDT [facility] NEUTROPHILS PCT 56.9 % 3:49 AM EDT [facility] LYMPHOCYTES 25.9 % 06/10/2025 3:49 AM EDT [facility] MONOCYTES 5.8 % 06/10/2025 3:49 AM EDT [facility] EOSINOPHILS 10.8 % 06/10/2025 3:49 AM EDT [facility] BASOPHILS 0.6 % 06/10/2025 3:49 AM EDT [facility] Blood Blood / Unknown 06/09/2025 9 :54 AM EDT 06/10/2025 2:39 AM EDT Endra - 06/10/2025 3:54 AM EDT FASTING:NO For adults, a slight decrease in the calculated MCHC value (in the range of 30 to 32 g/dL) is most likely not clinically significant; however, it should be interpreted with caution in correlation with other red cell parameters and the patient's clinical condition. Didi Stein PA-C LAB - BLOOD DRAW Final Resul t [facility] [address] [place] [address], [facility] [address] [address] * (ABNORMAL) ASSAY OF PROSTATE SPECIFIC ANTIGEN TOTAL Routine (06/09/2025 9:54 AM EDT) PSA, TOTAL 25.31(H) < OR = 4.00 ng/mL 06/10/2025 4:58 AM EDT [facility] Blood Blood / Unknown 06/09/2025 9 :54 AM EDT 06/10/2025 2:36 AM EDT Endra - 06/10/2025 5:20 AM EDT FASTING:NO The [...] DRAW Final Resul t Performing Organization Address [facility] de Phone Number [facility] [address] [place] [address], [employer] [place] [facility] [address] [place] [phone] * ASSAY OF MAGNESIUM Routine (06/09/2025 9:54 AM EDT) MAGNESIUM 2.1 1.5 - 2.5 mg/dL 06/10/2025 3:49 AM EDT Del[facility] Blood Blood / Unknown 06/09/2025 9 :54 AM EDT 06/10/2025 2:36 AM EDT Narrative [facility] - 06/10/2025 3:54 AM EDT FASTING:NO Didi Stein PA-C LAB - BLOOD DRAW Final Resul t Performing Organization Address [facility] de Phone Number [facility] [address] [place] [address], [employer] [address] [place] [phone] * (ABNORMAL) HEMOGLOBIN GLYCOSYLATED A1C Routine (06/09/2025 9:54 AM EDT) HEMOGLOBIN A1C 8.1(H) <5.7 % 06/10/2025 4:00 PM EDT [facility] Blood Blood / Unknown 06/09/2025 9 :54 AM EDT 06/10/2025 2:39 AM EDT Narrative [facility] - 06/10/2025 4:05 PM EDT FASTING:NO For [...] DRAW Final Resul t Performing Organization Address [facility] Co de Phone Number [facility] [address] [place] [address], [facility] [address] [address] * (ABNORMAL) 25 HYDROXY INCLUDES FRACTIONS IF PERFORMED Routine (06/09/2025 9:54 AM EDT) Pathologist [facility] VITAMIN D, 25-OH, TOTAL 28(L) 30 - 100 ng/mL 06/10/2025 4:58 AM EDT Deliv Blood Blood / Unknown 06/09/2025 9 :54 AM EDT 06/10/2025 2:36 AM EDT Narrative [facility] - 06/10/2025 5:20 AM EDT FASTING:NO Vitamin D Status 25-OH Vitamin D: . Deficiency: <20 ng/mL Insufficiency: 20 - 29 ng/mL Optimal: > or = 30 ng/mL . For 25-OH Vitamin D testing on patients on D2-supplementation and patients for whom quantitation of D2 and D3 fractions is required, the QuestAssureD(TM) 25-OH VIT D, (D2,D3), LC/MS/MS is recommended: order code 37888 (patients >2yrs). . See Note 1 . Note 1 . For additional information, please refer to http://education.[employer].Novogen/faq/WZD117 (This link is being provided for informational/ educational purposes only.) us Didi Stein PA-C LAB - BLOOD DRAW Final Resul t [facility] [address] [address], [facility] [address] [place] [address] * (ABNORMAL) LIPID PANEL Routine (06/09/2025 9:54 AM EDT) CHOLESTEROL, TOTAL 236(H) <200 mg/dL 06/10/2025 3:49 AM EDT [facility] HDL CHOLESTEROL 44 > OR = 40 mg/dL 06/10/2025 3:49 AM EDT [facility] TRIGLYCERIDES 190(H) <150 mg/dL 06/10/2025 3:49 AM EDT [facility] LDL-CHOLESTEROL 157(H) mg/dL (calc) 06/10/2025 3:49 AM EDT [facility] CHOL/HDLC RATIO 5.4(H) <5.0 (calc) 06/10/2025 3:49 AM EDT [facility] NON-HDL CHOLESTEROL 192(H) <130 mg/dL (calc) 06/10/2025 3:49 AM EDT Deliv Blood Blood / Unknown 06/09/2025 9 :54 AM EDT 06/10/2025 2:36 AM EDT Narrative [facility] - 06/10/2025 3:54 AM EDT FASTING:NO Reference [...] LDL-C. Gerald SS et al. GIOVANNA. 2013;310(19): 2127-2164 (http://education.[employer].Novogen/faq/UBF508) For patients with diabetes plus 1 major ASCVD risk factor, treating to a non-HDL-C goal of <100 mg/dL (LDL-C of <70 mg/dL) is considered a therapeutic option. Didi HANNAHC LAB - BLOOD DRAW Final Resul t [facility] [address] [address], [facility] [address] [place] [address] * (ABNORMAL) COMPREHENSIVE METABOLIC PANEL Routine (06/09/2025 9:54 AM EDT) GLUCOSE 63(L) 65 - 139 mg/dL 06/10/2025 3:49 AM EDT [facility] UREA NITROGEN (BUN) 16 7 - 25 mg/dL 06/10/2025 3:49 AM EDT [facility] CREATININE (blood) 1.50(H) 0.70 - 1.35 mg/dL 06/10/2025 3:49 AM EDT [facility] EGFR 51(L) > OR = 60 mL/min/1. 73m2 06/10/2025 3:49 AM EDT [facility] BUN/CREATININE RATIO 11 6 - 22 (calc) 06/10/2025 3:49 AM EDT [facility] SODIUM 139 135 - 146 mmol/L 06/10/2025 3:49 AM [employer]DS[facility] POTASSIUM 4.5 3.5 - 5.3 mmol/L 06/10/2025 3:49 AM EDT [facility] CHLORIDE 104 98 - 110 mmol/L 06/10/2025 3:49 AM EDT [facility] CARBON DIOXIDE 27 20 - 32 mmol/L 06/10/2025 3:49 AM EDT [facility] CALCIUM 8.8 8.6 - 10.3 mg/dL 06/10/2025 3:49 AM EDT [facility] PROTEIN, TOTAL 7.2 6.1 - 8.1 g/dL 06/10/2025 3:49 AM EDT [facility] ALBUMIN 3.8 3.6 - 5.1 g/dL 06/10/2025 3:49 AM EDT [facility] GLOBULIN 3.4 1.9 - 3.7 g/dL (calc) 06/10/2025 3:49 AM EDT [facility] ALBUMIN/GLOBULI N RATIO 1.1 1.0 - 2.5 (calc) 06/10/2025 3:49 AM EDT [facility] BILIRUBIN, TOTAL 0.3 0.2 - 1.2 mg/dL 06/10/2025 3:49 AM EDT [facility] ALKALINE PHOSPHATASE 104 35 - 144 U/L 06/10/2025 3:49 AM EDT [facility] AST 13 10 - 35 U/L 06/10/2025 3:49 AM EDT [facility] ALT 15 9 - 46 U/L 06/10/2025 3:49 AM EDT [facility] Blood Blood / Unknown 06/09/2025 9 :54 AM EDT 06/10/2025 2:36 AM EDT Narrative [facility] - 06/10/2025 3:54 AM EDT FASTING:NO . Non-fasting reference interval . Didi Stein PA-C LAB - BLOOD DRAW Final Resul t [facility] [address] [address], [facility] [address] [address] * HEALTH HISTORY SCANNED DOCUMENT (06/08/2025 3:00 AM EDT) 06/08/2025 3:00 AM EDT [facility] Provider Default SCAN OTHER ORDERS Final [...] HEPATITIS C ANTIBODY NON-REACT ANTHONY NON-REACT ANTHONY Deliv SIGNAL TO CUT-OFF 0.11 <1.00 Deliv Comment: HCV antibody was non-reactive. There is no laboratory evidence of HCV infection. In most cases, no further action is required. However, if recent HCV exposure is suspected, a test for HCV RNA (test code 94732) is suggested. For additional information please refer to http://[employer].HelpHive/faq/ELY03z1 (This link is being provided for informational/ educational purposes only.) Blood Blood / Unknown 04/17/2022 9 :55 AM EDT 04/17/2022 9:56 AM EDT Cassandra Moses PA-C LAB - BLOOD DRAW Edited Resu lt - Final [facility] [address] [address], [facility] [address] [address] * HIV Ag & Ab with Reflex Western Blot (04/17/2022 9:55 AM EDT) Pathologist [facility] HIV AG/AB, 4TH GEN NON-REAC TIVE NON-REAC TIVE [facility] Comment: HIV-1 antigen and HIV-1/HIV-2 antibodies were [...] purpose. For additional information please refer to http://[employer].HelpHive/faq/XQJ540 (This link is being provided for informational/ educational purposes only.) The performance of this assay has not been clinically validated in patients less than 2 years old. Blood Blood / Unknown 04/17/2022 9 :55 AM EDT 04/17/2022 9:56 AM EDT Cassandra Moses PA-C LAB - BLOOD DRAW Final Resul t [facility] [address] [facility] [address] [place] [address], [facility] [address] [address] from Last 3 Months or Most Recently Relevant to Health Maintenance Insurance [place] MEDICA[place] [facility] Care Teams Tape Rules Printing Machine Operator Relationship Specialty Start Date End Date Cassandra Moses PA-C [address] [place] [address] PCP - General Internal Medicine 12/06/21
== END 2025-07-22 10:03 | disposition home or self-care (01) ==
LOC: HO.HVS 09:16
PROVIDERS: PCP Physician Assistant; Visit Provider Surgery Vascular Surgery
DX: I73.9 Peripheral vascular disease, unspecified (principal)
CPT/HCPCS: 99214; G2211

== ENCOUNTER → 2025-07-22 09:15 | Outpatient (BNVA) | payer OTHER, SELFPAY | PROVIDERS: PCP Physician Assistant; Visit Provider Surgery Vascular Surgery | DX: Z09 Encounter for follow-up examination after completed treatment for conditions other than malignant neoplasm (principal); I73.9 Peripheral vascular disease, unspecified | CPT/HCPCS: 99212 ==

== ENCOUNTER 2025-08-30 07:46 | Outpatient (REF) | payer OTHER, SELFPAY ==
--- OUTSIDE RECORDS SUMMARY | 2024-04-02 05:49 | XMS_ITS | Continuity of Care Document ---
Author Organization [facility] Address [address] [address] Phone Care Team Providers Care Legal Entity Controller Name Role Phone Shelly Horvath OT Unavailable Unavailable Advance Directives Directive Yes / No Effective Date File Name No Information Encounters Encounter Description Practice Location Reason(s) For Visit Diagnoses Date Provider [facility], [address] [address], [place], [place], [id number], [place] tel:[phone] [facility] No Information 2023 Alexandru Bravo. [address] [place], [id number], [place]. tel:[phone] Family History Family Member Type Diagnosis Age [...]
--- OUTSIDE RECORDS SUMMARY | 2025-08-26 11:30 | XMS_ITS | Encounter Summary ---
Author Organization [facility] Address [address] [place] [address] Care Team Providers Care Windows Server Engineer Name Role Phone Cassandra Moses Primary Care Provider Reason for Visit * Imaging (Routine) - Authorized Specialty Diagnoses / Procedures Referred By Lina vazquez Referred To Contact Cardiology Diagnoses Heart failure ([facility]24, [facility] V28) Procedures Transthoracic echocardiogram (TTE) complete with PRN contrast, bubble, strain, and 3D order panel [place] TTE W 2D IMAGE COMPLETE W DOPPLER ECHO & COLOR FLOW DOPPLER ECHO [place] ISAAC 2D COMPLETE W/CONTRAST OR W & WO CONTRAST WITH DOPPLER Arturo Conn, BOZENA [address] [facility] [place] [address] Phone: tel: fax: [facility] Referral ID Status Reason Start Date Expiration Date V isits Requested Visits Authorized [id number] Authorized 02/22/2025 02/22/2026 1 1 Encounter Details Date Type Department Care Team (Latest Contact Info) Description 08/26/2025 12:30 PM EDT Ancillary Procedure [facility] - [address] [place] [phone] Heart failure ([facility] V24, [facility] V28) Social History Tobacco Use [...] 3D order panel Echocardiography Routine Heart failure ([facility] V24, [facility] V28) 08/26/2025 2:06 PM EDT documented as of this encounter Visit Diagnoses Diagnosis Heart failure ([facility] V24, [facility] V28) Unspecified heart failure documented in this encounter Administered Medications Inactive Administered Medications - up to 3 most recent administrations Medication Order MAR Action Action Date Dose Rate Site perflutren lipid microsphere (DEFINITY) 1.3 mL in sodium chloride 0.9% 8.7 mL injection 10 mL, intravenous, Administer over 10 Minutes, Once, On Kimberlee 08/26/25 at 1430, For 1 doseIndications:Heart failure ([facility] V24, [facility] V28) Given 08/26/2025 2:07 PM EDT 10 mL documented in this encounter Orders Medications Ordered That Refugio ht Not Have Been Administered Count Last Ordered Date First Ordered Date perflutren lipid microsphere (DEFINITY) 1.3 mL in sodium chloride 0.9% 8.7 mL injection 1 08/26/2025 documented in this encounter Care Teams Windows Server Engineer Relationship Specialty Start Date End Date Cassandra Moses PA [address] [place] [address] PCP - General 07/12/22 documented as of this encounter
--- OUTSIDE RECORDS SUMMARY | 2025-08-30 07:50 | XMS_ITS | Clinical Summary ---
Author Organization [facility] Address [address] [address] Phone Care Team Providers Care Motor Room Controller Name Role Phone Unavailable Primary Care Provider [...] Exam 07/14/2022 Diabetes: Hemoglobin A1C 02/13/2025 025, 11/15/2024, 11/06/2024 Influenza Vaccine (#1) 2025 07/21/2024 Hepatitis B Vaccine Aged Out No longe r eligible based on patient's age to [place] [id number] UHC Medicare [place]HC Medicare Medicaid [place]
--- OUTSIDE RECORDS SUMMARY | 2025-08-30 07:50 | XMS_ITS | Clinical Summary ---
Author Organization [facility] Address [address] [place] [address] Phone Care Team Providers Care Telescope Repairer Name Role Phone Cassandra Moses Primary [...] for 28 days. 10 mL 11/16/2024 Active Hospital, Clinic, or Other Facility Administered Medication Ordered Dose Route Frequency Start Date End Date Status perflutren lipid microsphere (DEFINITY) 1.3 mL in sodium chloride 0.9% 8.7 mL injectionIndications:Heart failure (CMS/HCC V24, CMS/HCC V28) 10 mL IV Once 08/26/2025 08/26/2025 Ended Active Problems Problem Noted Date Diagnosed Date Hyperglycemia 11/15/2024 Encounters Date Type Department Care Team Description 08/26/2025 12:30 PM EDT Ancillary Procedure [facility] - [facility] [address] [place] [address] Heart failure ([facility] V24, [facility] V28) from Last 3 Months Medical History Medical History Date Comments Diabetes mellitus ([facility] V24, [facility] V28) Social History Tobacco Use Types Packs/Day [...] Pressure 146/92 08/26/2025 2:05 PM EDT Pulse 86 11/16/2024 11:51 AM EST Temperature 36.4 C (97.6 F) 11/16/2024 11:51 AM EST Respiratory Rate 16 11/16/2024 11:51 AM EST Oxygen Saturation 97% 11/16/2024 11:51 AM EST Inhaled Oxygen Concentration - - Weight 107 kg (235 lb) 08/26/2025 2:05 PM EDT Height 182.9 cm (6') 08/26/2025 2:05 PM EDT Body Mass Index 31.87 08/26/2025 2:05 PM EDT Plan of Treatment Health Maintenance Due Date Last Done Comments Colorectal Cancer Screening: Colonoscopy 1960 Diabetes: Annual Foot Exam 02/22/1970 Diabetes: Annual Retina Eye Exam 02/22/1970 DTaP,Tdap,and Td Vaccines (1 - Tdap) 02/22/1979 RSV Immunization Adult Patients (1 - Risk 50-74 years 1-dose series) 02/22/2010 Zoster Vaccines (1 of 2) 02/22/2010 Social Influencers of Health Screening 09/30/2022 Depression Screening 10/28/2024 COVID-19 Vaccine (3 - 2025-26 season) 2025 01/21/2023, 02/15/2022 Influenza Vaccine (#1) 2025 07/21/2024 Falls Risk Assessment 11/16/2025 11/16/2024 Diabetes: Blood Sugar Control Test (HGBA1C) 12/10/2025 06/09/2025, 03/11/2025, 11/15/2024, Additional history exists Diabetes: Annual Urine Albumin-Creatinine Ratio (uACR) 06/09/2026 06/09/2025, 03/11/2025, 12/23/2023 Diabetes: Annual GFR (Glomerular Filtration Rate) 06/09/2026 06/09/2025, 12/21/2024, 11/16/2024, Additional history exists Hypertension/CHF/CAD Annual BMP Blood Test 06/09/2026 06/09/2025, 12/21/2024, 11/16/2024, Additional history exists Cholesterol Screening (Lipid Panel) 06/09/2030 06/09/2025, 06/09/2025, 11/16/2024, Additional history exists Hepatitis C Screening Completed 04/17/2022 Pneumococcal Vaccine: 50+ Years Completed 06/09/2025 HIB Vaccines Aged Out No longer eligi [...] Relevant to Health Maintenance Results * (ABNORMAL) Basic metabolic panel (11/16/2024 3:55 AM EST) Sodium 138 133 - 145 mmol/L LAB CHEMISTRY METHOD 11/16/2024 4:39 AM [facility] Potassium 3.7 3.5 - 5.5 mmol/L LAB CHEMISTRY METHOD 11/16/2024 4:39 AM [facility] Chloride 107 96 - 110 mmol/L LAB CHEMISTRY METHOD 11/16/2024 4:39 AM [facility] CO2 24 21 - 32 mmol/L LAB CHEMISTRY METHOD 11/16/2024 4:39 AM [facility] Anion Gap 7 3 - 11 LAB CHEMISTRY METHOD 11/16/2024 4:39 AM [facility] Glucose 157(H) 70 - 100 mg/dL LAB CHEMISTRY METHOD 11/16/2024 4:39 AM [facility] BUN 23 5 - 25 mg/dL LAB CHEMISTRY METHOD 11/16/2024 4:39 AM [facility] Creatinine 1.58(H) 0.70 - 1.30 mg/dL LAB CHEMISTRY METHOD 11/16/2024 4:39 AM [facility] eGFR 49(L) >=60 mL/min/1. 73m2 LAB CHEMISTRY METHOD 11/16/2024 4:39 AM [facility] Comment:Calculation based on the Chronic Kidney Disease Epidemiology Collaboration (CKD-EPI) equation refit without adjustment for race. BUN/Creatinine Ratio 14.6 LAB CHEMISTRY METHOD 11/16/2024 4:39 AM [facility] Calcium 8.2(L) 8.5 - 10.5 mg/dL LAB CHEMISTRY METHOD 11/16/2024 4:39 AM EST [facility] Blood Venous blood specimen / Unknown Venipuncture / Unknown 11/16/2024 3:55 AM EST 11/16/2024 3:59 AM EST us Antonio Doss MD LAB BLOOD ORDERABLES Final Res ult Performing Organization Address [facility]/ZIP Co de Phone Number [facility] [address] [place] [address], [place] [phone] * (ABNORMAL) Hemoglobin A1c (11/15/2024 1:54 PM EST) Hemoglobin A1C 13.5(H) <6.5 % LAB CHEMISTRY METHOD 11/16/2024 1:32 PM EST [facility] Mean Bld Glu Estim. 341 mg/dL LAB CHEMISTRY METHOD 11/16/2024 1:32 PM EST [facility] Blood Venous blood specimen / Unknown Venipuncture / Unknown 11/15/2024 1:54 PM EST 11/15/2024 2:08 PM EST us Nan BOLANOS LAB BLOOD ORDERABLES Fi nal Result Performing Organization Address [facility]/ZIP Co de Phone Number [facility] [address] [place] [address], [place] [phone] from Last 3 Months or Most Recently Relevant to Health Maintenance Insurance [facility] Member Subscriber Plan / Payer (Ef fective 2025-Present) Name:Yanick Arita Relation to Subscriber:Self Name:Yanick Arita Payer ID:[id number] Group ID:[id number] Type:Not on file Address: [address] [place] [phone] Advance Directives * Full Code - Default [...] currently active code status orders. Care Teams Telescope Repairer Relationship Specialty Start Date End Date Cassandra Moses PA [address] [place] [address] PCP - General 07/12/22
--- OUTSIDE RECORDS SUMMARY | 2025-08-30 07:50 | XMS_ITS | Clinical Summary ---
Author Organization [facility] Address [address] [place] [address] Care Team Providers Care Project Administrator Name Role Phone Cassandra Moses PA-C Primary [...] without complication, with long-term current use of insulin,Essenti al (primary) hypertension,At risk for falling,Diabeti c feet by miscellaneous route daily. Diabetic shoes size [...] without complication, with long-term current use of insulin,Essenti al (primary) hypertension,At risk for falling,Diabeti c feet by miscellaneous route daily. Diabetic shoes size 11.5 for daily use. Diagnosis diabetes, obesity. Length of need 99 months 1 Each 10/27/20 24 Active pen needle, diabetic 31 gauge x 5/16 ndleIndications :Type 2 diabetes mellitus with hyperglycemia, with long-term current use of insulin To inject insulin 4 times daily. 100 Each 11/06/19 25 Active blood-glucose meter,continuou s (FREESTYLE MAIDA 3 READER) miscIndications :Type 2 diabetes mellitus with hyperglycemia, with long-term current use of insulin 1 Units by miscellaneous route daily. To check BS daily. 1 Each 11/20/19 25 Active blood sugar diagnostic stripsIndicatio ns:Type 2 diabetes mellitus with hyperglycemia, with long-term current use of insulin 1 Each 4 (four) times daily Precision [...] unspecified HF chronicity, unspecified heart failure type TOME 1 TABLETA POR VIA ORAL DOS VECES AL ADELSO 180 Tablet 1 02/02/20 25 Active torsemide (DEMADEX) 20 mg tabletIndicatio ns:Congestive heart failure, unspecified HF chronicity, unspecified heart failure type TAKE 2 TABLETS POR VIA ORAL DOS VECES AL ADELSO 360 Tablet 1 04/07/20 25 Active pantoprazole (PROTONIX) 40 mg EC tabletIndicatio ns:Gastroesopha geal reflux disease without esophagitis TOME 1 TABLETA POR VIA ORAL TODOS LOS POZO 90 Tablet 1 04/07/20 25 Active carvediloL (COREG) 12.5 mg tabletIndicatio ns:Congestive heart failure, unspecified HF chronicity, unspecified heart failure type,Hypertensi on, essential TOME LLOYD TABLETA 2 VECES AL ADELSO CON LAS COMIDAS 180 Tablet 1 04/07/20 25 Active levothyroxine 50 mcg tabletIndicatio ns:Hypothyroidi sm, unspecified type TOME 1 TABLETA POR VIA ORAL TODOS LOS POZO. 84 Tablet 2 04/14/20 25 Active insulin lispro 100 unit/mL injection penIndications: Type 2 diabetes mellitus with hyperglycemia, with long-term current use of insulin SLIDING SCALE 3 times a day 100-149: 15 units, 150-199: 18 units, 200-249: 21 units, 250-299: 24 units, 300-349: 27 units, 350-399: 30 units.. 15 mL 1 06/17/20 25 Active TRESIBA FLEXTOUCH U-100 100 unit/mL (3 mL)Indications: Type 2 diabetes mellitus with hyperglycemia, with long-term current use of insulin INJECT 32 UNITS INTO THE SKIN EVERY MORNINGStrength: 100 unit/mL (3 mL). 15 mL 1 06/17/20 25 Active rosuvastatin (CRESTOR) 40 mg tabletIndicatio ns:Type 2 diabetes mellitus with hyperglycemia, with long-term current use of insulin,Mixed hyperlipidemia, Congestive heart failure, unspecified HF chronicity, unspecified heart failure type Take 1 Tablet by mouth nightly at bedtime. 90 Tablet 1 07/26/20 25 Active albuterol (PROVENTIL) 2.5 mg /3 mL (0.083 %) nebulizer solutionIndicat ions:Exacerbati on of asthma, unspecified asthma severity, unspecified whether persistent Take 3 mL by nebulization every 6 (six) hours as needed for wheezing. 75 mL 2 07/28/20 25 Active blood-glucose sensor (FREESTYLE MAIDA 3 PLUS SENSOR) deviIndications :Type 2 diabetes mellitus with hyperglycemia, with long-term current use of insulin Place 1 sensor to back of upper arm every 15 days. Use to monitor blood sugar continuously (Freestyle Maida 3 Plus). 2 Each 08/10/20 Active dulaglutide (TRULICITY) 1.5 mg/0.5 mL pen injectorIndicat ions:Type 2 diabetes mellitus with hyperglycemia, with long-term current use of insulin Inject 1.5 mg into the skin once a week. 2 mL 2 08/10/20 25 Active blood-glucose sensor (FREESTYLE MAIDA 3 PLUS SENSOR) deviIndications :Type 2 diabetes mellitus with hyperglycemia, with long-term current use of insulin Place 1 sensor to back of upper arm every 15 days. Use to monitor blood sugar continuously (Freestyle Maida 3 Plus) 2 Each 11/20/19 25 025 Discontin ued(Reord er (E-Cancel Not Sent)) dulaglutide (TRULICITY) 1.5 mg/0.5 mL pen injectorIndicat ions:Type 2 diabetes mellitus with hyperglycemia, with long-term current use of insulin Inject 1.5 mg into the skin once a week. 2 mL 2 05/03/20 25 025 Discontin ued(Reord er (E-Cancel Not Sent)) Active Problems Problem Noted Date Diagnosed Date Class 1 obesity due to exces s calories with serious comorbidity and body mass index (BMI) of 31.0 to 31.9 in adult 12/23/2023 PTSD (post-traumatic stress disorder) 07/05/2022 Generalized anxiety disorder 05/09/2022 Constipation 04/18/2022 Exacerbation of asthma 04/18/2022 Gout 04/18/2022 Hypothyroidism 04/18/2022 Type 2 diabetes mellitus wit h hyperglycemia, with long-term current use of insulin 04/18/2022 Congestive heart failure 04/18/2022 Elevated prostate specific antigen (PSA) 022 Overview (06/02/2025): 01/25/2025 - [facility] - Dx: Elevated PSA - F/u with MRI of prostate - TRUSP bx w f/u Pneumonia due to coronavirus disease 2019 (CODE) 02/04/2022 Acute kidney failure, unspecified 01/31/2022 Essential (primary) hypertension 01/31/2022 Stage 3 chronic kidney disease 01/31/2022 Encounters Date Type Department Care Team Description 08/10/2025 1:20 PM EDT Office Visit [address] [address] Nikolai Stephenson, Yanick Nguyen 07/26/2025 10:20 AM EDT Telemedicine Visit [address] [phone] Didi Stein PA-C 06/17/2025 3:00 PM EDT Office Visit [address] [phone] Nikolai Stephenson, Magali Orourke 06/09/2025 9:00 AM EDT Office Visit [address] [phone] iDdi Stein PA-C 06/09/2025 Interim Notes [address] [phone] Abena Martinez MA from Last 3 Months Immunizations Immunization [...] or isolated from th ose around you? 12/21/2024 Financial Resource Strain Answer Date R ecorded Hard to pay for: Food 12/21/2024 Stress Answer Date Recorded Do you [...] Sign Reading Time Taken Comments Blood Pressure 124/78 08/10/2025 2:00 PM EDT Pulse 85 08/10/2025 2:00 PM EDT Temperature 36.5 C (97.7 F) 08/10/2025 2:00 PM EDT Respiratory Rate 16 08/10/2025 2:00 PM EDT Oxygen Saturation 99% 08/10/2025 2:00 PM EDT Inhaled Oxygen Concentration - - Weight 93.7 kg (206 lb 9.6 oz) 08/10/2025 2:00 P M EDT Height 188 cm (6' 2 ) 08/10/2025 2:00 PM EDT Body Mass Index 26.53 08/10/2025 2:00 PM EDT Plan of Treatment Health Maintenance Due Date Last Done Comments Anxiety Screening 1960 Dental FMX/Pano 1960 Medicare Annual Wellness Visit 02/22/1978 Imm-DTaP/Tdap/Td (1 - Tdap) 02/22/1979 CT Colonography 02/22/2005 Colonoscopy 02/22/2005 Colorectal Cancer Screening 02/22/2005 FIT/gFOBT 02/22/2005 Fecal DNA 02/22/2005 Flexible Sigmoidoscopy 02/22/2005 Imm-RSV (adult) (1 - Risk 50 -74 years 1-dose series) 02/22/2010 Imm-Zoster, Recombinant (1 of 2) 02/22/2010 Retinopathy Screening 11/29/2024 11/29/2023 Abdominal Aortic Aneurysm Screening 02/22/2025 Falls Prevention 02/22/2025 Dental Prophy 03/23/2025 09/21/2024 Laj-PEVOE-22 ( season) 2025 023, 02/15/2022 Imm-Influenza (#1) 2025 07/21/2024 Hemoglobin A1c 09/09/2025 06/09/2025, 0502/2025, 11/15/2024, Additional history exists Dental Examination 09/23/2025 09/21/2024 Dental Perio Charting 09/23/2025 09/21/2024 Diabetes Foot Exam 06/09/2026 06/09/2025, 0 01/14/2024, 06/06/2023 Lipid Screening 06/09/2026 06/09/2025, 10/29, 11/15/2024, Additional history exists Serum Creatinine 06/09/2026 06/09/2025, , 11/16/2024, Additional history exists TSH Monitoring 06/09/2026 06/09/2025, 11/29, 04/17/2022 Urine Albumin Creatinine Rat io Screening 06/09/2026 06/09/2025, 06/09/2025, 03/11/2025, Additional history exists Tobacco Screening 07/26/2026 07/26/2025, 12/23/2023 HIV Screening Completed 04/17/2022 Hepatitis C Screening Completed 04/17/2022 Alcohol and Drug Screen Completed 11/06/19, 11/29/2023, 04/16/2023, Additional history exists Depression Annual Screen Completed 12/21/2024 Imm-Pneumococcal 50+ Completed 06/09/2025 Procedures Procedure Name Priority Date/Time Associated Diagnosis Comments GLUCOSE, BLOOD BY GLUCOSE MONITORING DEVICE (CLIA WAIVED)POCT Routine 08/10/2025 2:06 PM EDT Type 2 diabetes mellitus with hyperglycemia, with long-term current use of insulin MEDICATIONS SCANNED DOCUMENT 08/06/2025 3:00 AM EDT REFERRAL SCANNED DOCUMENT 07/22/2025 3:00 AM EDT OTHER ORDERS SCANNED DOCUMENT 07/16/2025 3:00 AM EDT REFERRAL SCANNED DOCUMENT 07/13/2025 3:00 AM EDT OTHER ORDERS SCANNED DOCUMENT 07/02/2025 3:00 AM EDT REFERRAL SCANNED DOCUMENT 06/30/2025 3:00 AM EDT OTHER ORDERS SCANNED DOCUMENT 06/23/2025 3:00 AM EDT GLUCOSE, BLOOD BY GLUCOSE MONITORING DEVICE (CLIA WAIVED)POCT Routine 06/17/2025 3:07 PM EDT Type 2 diabetes mellitus with hyperglycemia, with long-term current use of insulin ([facility]) REFERRAL TO NEPHROLOGY Urgent 06/11/2025 3:00 AM EDT Stage 3b chronic kidney disease ([facility]) RFLX - REFLEXIVE URINE CULTURE Routine 06/09/2025 9:54 AM EDT ASSAY OF PROSTATE SPECIFIC ANTIGEN TOTAL Routine 06/09/2025 9:54 AM EDT Routine general medical examination at a [facility] Class 1 obesity due to excess calories with serious comorbidity and body mass index (BMI) of 30.0 to 30.9 in adult Type 2 diabetes mellitus with hyperglycemia, with long-term current use of insulin ([facility]) Congestive heart failure, unspecified HF chronicity, unspecified heart failure type ([facility]) Hypothyroidism, unspecified type Stage 3 chronic kidney disease, unspecified whether stage 3a or 3b CKD ([facility]) Elevated prostate specific antigen (PSA) Mild vitamin D deficiency VITAMIN B12 & FOLATE Routine 06/09/2025 9:54 AM EDT Routine general medical examination at a [facility] facility Class 1 obesity due to excess calories with serious comorbidity and body mass index (BMI) of 30.0 to 30.9 in adult Type 2 diabetes mellitus with hyperglycemia, with long-term current use of insulin ([facility]) Congestive heart failure, unspecified HF chronicity, unspecified heart failure type ([facility]) Hypothyroidism, unspecified type Stage 3 chronic kidney disease, unspecified whether stage 3a or 3b CKD ([facility]) Elevated prostate specific antigen (PSA) Mild vitamin D deficiency ASSAY OF MAGNESIUM Routine 06/09/2025 9: 54 AM EDT Routine general medical examination at a [facility] facility Class 1 obesity due to excess calories with serious comorbidity and body mass index (BMI) of 30.0 to 30.9 in adult Type 2 diabetes mellitus with hyperglycemia, with long-term current use of insulin ([facility]) Congestive heart failure, unspecified HF chronicity, unspecified heart failure type ([facility]) Hypothyroidism, unspecified type Stage 3 chronic kidney disease, unspecified whether stage 3a or 3b CKD ([facility]) Elevated prostate specific antigen (PSA) Mild vitamin D deficiency 25 HYDROXY INCLUDES FRACTIONS IF PERFORMED Routine 06/09/2025 9:54 AM EDT Routine general medical examination at a [facility] care facility Class 1 obesity due to excess calories with serious comorbidity and body mass index (BMI) of 30.0 to 30.9 in adult Type 2 diabetes mellitus with hyperglycemia, with long-term current use of insulin ([facility]) Congestive heart failure, unspecified HF chronicity, unspecified heart failure type ([facility]) Hypothyroidism, unspecified type Stage 3 chronic kidney disease, unspecified whether stage 3a or 3b CKD ([facility]) Elevated prostate specific antigen (PSA) Mild vitamin D deficiency BLOOD COUNT COMPLETE AUTO&AUTO DIFRNTL WBC Routine 06/09/2025 9:54 AM EDT Routine general medical examination at a [facility] care facility Class 1 obesity due to excess calories with serious comorbidity and body mass index (BMI) of 30.0 to 30.9 in adult Type 2 diabetes mellitus with hyperglycemia, with long-term current use of insulin ([facility]) Congestive heart failure, unspecified HF chronicity, unspecified heart failure type ([facility]) Hypothyroidism, unspecified type Stage 3 chronic kidney disease, unspecified whether stage 3a or 3b CKD ([facility]) Elevated prostate specific antigen (PSA) Mild vitamin D deficiency COMPREHENSIVE METABOLIC PANEL Routine 06/09/2025 9:54 AM EDT Routine general medical examination at a health care facility Class 1 obesity due to excess calories with serious comorbidity and body mass index (BMI) of 30.0 to 30.9 in adult Type 2 diabetes mellitus with hyperglycemia, with long-term current use of insulin ([facility]) Congestive heart failure, unspecified HF chronicity, unspecified heart failure type ([facility]) Hypothyroidism, unspecified type Stage 3 chronic kidney disease, unspecified whether stage 3a or 3b CKD ([facility]) Elevated prostate specific antigen (PSA) Mild vitamin D deficiency LIPID PANEL Routine 06/09/2025 9:54 AM EDT Routine general medical examination at a [facility] care facility Class 1 obesity due to excess calories with serious comorbidity and body mass index (BMI) of 30.0 to 30.9 in adult Type 2 diabetes mellitus with hyperglycemia, with long-term current use of insulin ([facility]) Congestive heart failure, unspecified HF chronicity, unspecified heart failure type ([facility]) Hypothyroidism, unspecified type Stage 3 chronic kidney disease, unspecified whether stage 3a or 3b CKD ([facility]) Elevated prostate specific antigen (PSA) Mild vitamin D deficiency TSH W/RFLX FREE T4 Routine 06/09/2025 9: 54 AM EDT Routine general medical examination at a [facility] facility Class 1 obesity due to excess calories with serious comorbidity and body mass index (BMI) of 30.0 to 30.9 in adult Type 2 diabetes mellitus with hyperglycemia, with long-term current use of insulin ([facility]) Congestive heart failure, unspecified HF chronicity, unspecified heart failure type ([facility]) Hypothyroidism, unspecified type Stage 3 chronic kidney disease, unspecified whether stage 3a or 3b CKD ([facility]) Elevated prostate specific antigen (PSA) Mild vitamin D deficiency HEMOGLOBIN GLYCOSYLATED A1C Routine 06/09/2025 9:54 AM EDT Routine general medical examination at a [facility] facility Class 1 obesity due to excess calories with serious comorbidity and body mass index (BMI) of 30.0 to 30.9 in adult Type 2 diabetes mellitus with hyperglycemia, with long-term current use of insulin ([facility]) Congestive heart failure, unspecified HF chronicity, unspecified heart failure type ([facility]) Hypothyroidism, unspecified type Stage 3 chronic kidney disease, unspecified whether stage 3a or 3b CKD ([facility]) Elevated prostate specific antigen (PSA) Mild vitamin D deficiency URINALYSIS, COMPLETE W/REFLEX TO CULTURE Routine 06/09/2025 9:54 AM EDT Routine general medical examination at a [facility] care facility Class 1 obesity due to excess calories with serious comorbidity and body mass index (BMI) of 30.0 to 30.9 in adult Type 2 diabetes mellitus with hyperglycemia, with long-term current use of insulin ([facility]) Congestive heart failure, unspecified HF chronicity, unspecified heart failure type ([facility]) Hypothyroidism, unspecified type Stage 3 chronic kidney disease, unspecified whether stage 3a or 3b CKD ([facility]) Elevated prostate specific antigen (PSA) Mild vitamin D deficiency MICROALBUMIN/CREATINI NE RATIO, URINE, RANDOM Routine 06/09/2025 9:54 AM EDT Routine general medical examination at a [facility] facility Class 1 obesity due to excess calories with serious comorbidity and body mass index (BMI) of 30.0 to 30.9 in adult Type 2 diabetes mellitus with hyperglycemia, with long-term current use of insulin ([facility]) Congestive heart failure, unspecified HF chronicity, unspecified heart failure type ([facility]) Hypothyroidism, unspecified type Stage 3 chronic kidney disease, unspecified whether stage 3a or 3b CKD ([facility]) Elevated prostate specific antigen (PSA) Mild vitamin D deficiency HEALTH HISTORY SCANNED DOCUMENT 06/08/2025 3:00 AM EDT REFERRAL SCANNED DOCUMENT 05/31/2025 3:00 AM EDT PROPHYLAXIS - ADULT Routine 09/21/2024 1 1:00 AM EST Retained tooth root COMP ORAL EVALUATION - NEW/ESTABLISHED PATIENT Routine 09/21/2024 11:00 AM EST Retained tooth root REFERRAL TO PODIATRY Routine 01/14/2024 3:00 AM EDT Uncontrolled type 2 diabetes mellitus with hypoglycemia without coma ([facility]) REFERRAL TO DIABETIC RETINAL EXAM Routine 11/29/2023 3:00 AM EST Uncontrolled type 2 diabetes mellitus with hypoglycemia without coma ([facility]) HIV 1/2 AG & AB W/RFLX (4TH GEN) Routine 04/17/2022 9:55 AM EDT Routine lab draw HEPATITIS C AB W/RFLX HCV RNA, QT, RT PCR Routine 04/17/2022 9:55 AM EDT Routine lab draw from Last 3 Months or Most Recently Relevant to Health Maintenance Results * (ABNORMAL) GLUCOSE, BLOOD BY GLUCOSE MONITORING DEVICE (CLIA WAIVED)POCT Routine (08/10/2025 2:06 PM EDT) Only the most recent of2 resultswithin the time period is included. GLUCOSE 154(A) 70 - 100 mg/dL [facility] PO[facility] Capillary Blood Blood / Unknown 2:06 PM EDT Nikolai Stephenson PharmD LAB - BLOOD DRAW Final Resu lt [facility] PO[facility] * MEDICATIONS SCANNED DOCUMENT (08/06/2025 3:00 AM EDT) 08/06/2025 3:00 AM EDT Chma Provider Default SCAN MEDS OTHER ORDERS Fin al Result * REFERRAL SCANNED DOCUMENT (07/22/2025 3:00 AM EDT) Only the most recent of4 resultswithin the time period is included. 07/22/2025 3:00 AM EDT Cassandra Moses PA-C SCAN REFERRAL Final Result * OTHER ORDERS SCANNED DOCUMENT (07/16/2025 3:00 AM EDT) Only the most recent of3 resultswithin the time period is included. 07/16/2025 3:00 AM EDT Didi Stein PA-C SCAN OTHER ORDERS Final Resu lt * REFERRAL TO NEPHROLOGY (06/11/2025 3:00 AM EDT) 06/11/2025 3:00 AM EDT Cassandra Moses PA-C REFERRAL Final Result * TSH W/RFLX FREE T4 Routine (06/09/2025 9:54 AM EDT) TSH W/REFLEX TO FT4 1.23 0.40 - 4.50 mIU/L 06/10/2025 4:58 AM EDT [facility] Blood Blood / Unknown 06/09/2025 9 :54 AM EDT 06/10/2025 2:36 AM EDT Narrative [employer] [facility] - 06/10/2025 5:20 AM EDT FASTING:NO Didi Stein PA-C LAB - BLOOD DRAW Final Resul t [employer] [address] [place] [id number], [employer] [address] [address] * (ABNORMAL) URINALYSIS, COMPLETE W/REFLEX TO CULTURE Urine Routine (06/09/2025 9:54 AM EDT) COLOR YELLOW YELLOW 06/10/2025 3:17 AM EDT [employer] [facility] APPEARANCE CLEAR CLEAR 06/10/2025 3:17 AM EDT [employer] [facility] SPECIFIC GRAVITY 1.019 1.001 - 1.035 06/10/2025 3:17 AM EDT [employer] [facility] URINE PH 6.0 5.0 - 8.0 06/10/2025 3:17 AM EDT [employer] [facility] GLUCOSE NEGATIVE NEGATIVE 06/10/2025 3:17 AM EDT [employer] [facility] BILIRUBIN NEGATIVE NEGATIVE 06/10/2025 3:17 AM EDT [employer] [facility] KETONES NEGATIVE NEGATIVE 06/10/2025 3:17 AM EDT [employer] [facility] OCCULT BLOOD NEGATIVE NEGATIVE 06/10/2025 3:17 AM EDT [employer] [facility] URINE PROTEIN 1+(A) NEGATIVE 06/10/2025 3:17 AM EDT [employer] [facility] NITRITE NEGATIVE NEGATIVE 06/10/2025 3:17 AM EDT [employer] [facility] LEUKOCYTE ESTERASE NEGATIVE NEGATIVE 06/10/2025 3:17 AM EDT [employer] [facility] URINE LEUKOCYTES NONE SEEN 0 - 5 /HPF 06/10/2025 3:17 AM EDT [employer] [facility] RBC NONE SEEN 0 - 2 /HPF 06/10/2025 3:17 AM EDT [employer] [facility] SQUAMOUS EPITHELIAL CELLS NONE SEEN < OR = 5 /HPF 06/10/2025 3:17 AM EDT [employer] [facility] BACTERIA NONE SEEN NONE SEEN /HPF 06/10/2025 3:17 AM EDT [employer] [facility] HYALINE CAST NONE SEEN NONE SEEN /LPF 06/10/2025 3:17 AM EDT [employer] [facility] SEE NOTE SEE NOTE 06/10/2025 3:17 AM EDT [employer] [facility] Urine Urine specimen / Unknown 06/09/2025 9:54 AM EDT 06/10/2025 2:52 AM EDT Narrative [employer] - 06/10/2025 3:17 AM EDT FASTING:NO This urine was analyzed for the presence of WBC, RBC, bacteria, casts, and other formed elements. Only those elements seen were reported. . . Didi BOLANOS-Maureen LAB URINE AMBULATORY Final R esult Performing Organization Address City/[facility]/ZIP Co de Phone Number [employer] [address] [address], [employer] [address] [address] * RFLX - REFLEXIVE URINE CULTURE Routine (06/09/2025 9:54 AM EDT) REFLEXIVE URINE CULTURE SEE NOTE 06/10/2025 3:17 AM EDT [employer] [facility] 06/09/2025 9:54 AM EDT 06/10/2025 2:52 AM EDT [employer] [facility] - 06/10/2025 3:17 AM EDT FASTING:NO NO CULTURE INDICATED Didi BOLANOS-C LAB - MICROBIOLOGY AMBULATOR Y Final Result Performing Organization Address [facility]/ZIP Co de Phone Number [employer] [address] [address], [employer] [address] [address] * (ABNORMAL) MICROALBUMIN/CREATININE RATIO, URINE, RANDOM Urine Routine (06/09/2025 9:54 AM EDT) CREATININE, RANDOM URINE 165 20 - 320 mg/dL 06/10/2025 5:52 PM EDT [employer] [facility] MICROALBUMIN 12.2 mg/dL 06/10/2025 5:52 PM EDT [employer] [facility] MICROALBUMIN/CRE ATININE RATIO, RANDOM URINE 74(H) <30 mg/g creat 06/10/2025 5:52 PM EDT [employer] [facility] Urine Urine specimen / Unknown 06/09/2025 9:54 AM EDT 06/10/2025 2:07 AM EDT [employer] [facility] - 06/10/2025 5:58 PM EDT FASTING:NO [...] PA-C LAB URINE AMBULATORY Final R esult [employer] [address] [address], [employer] [address] [address] * VITAMIN B12 & FOLATE Routine (06/09/2025 9:54 AM EDT) VITAMIN B12 391 200 - 1,100 pg/mL 06/10/2025 4:58 AM EDT [employer] [facility] FOLATE, SERUM 8.0 ng/mL 06/10/2025 4:58 AM EDT [employer] [facility] Blood Blood / Unknown 06/09/2025 9 :54 AM EDT 06/10/2025 2:36 AM EDT [employer] - 06/10/2025 5:20 AM EDT FASTING:NO [...] LAB - BLOOD DRAW Final Resul t [employer] [address] [place] [address], [employer] [address] [address] * (ABNORMAL) BLOOD COUNT COMPLETE AUTO&AUTO DIFRNTL WBC Routine (06/09/2025 9:54 AM EDT) WHITE BLOOD CELL COUNT 8.3 3.8 - 10.8 Thousand/ uL 06/10/2025 3:49 AM EDT [employer] [facility] RED BLOOD CELL COUNT 4.47 4.20 - 5.80 Million/u L 06/10/2025 3:49 AM [employer] [facility] HEMOGLOBIN 12.6(L) 13.2 - 17.1 g/dL 06/10/2025 3:49 AM [employer] [facility] HEMATOCRIT 40.4 38.5 - 50.0 % 06/10/2025 3:49 AM [employer] MCV 90.4 80.0 - 100.0 fL 06/10/2025 3:49 AM [employer] MCH 28.2 27.0 - 33.0 pg 06/10/2025 3:49 AM EDT [facility] MCHC 31.2(L) 32.0 - 36.0 g/dL 06/10/2025 3:49 AM [employer] RDW 15.4(H) 11.0 - 15.0 % 06/10/2025 3:49 AM EDT [facility] PLATELET COUNT 353 140 - 400 Thousand/ uL 06/10/2025 3:49 AM [employer] MPV 9.5 7.5 - 12.5 fL 06/10/2025 3:49 AM EDT [facility] ABSOLUTE NEUTROPHILS 4,723 1,500 - 7,800 cells/uL 06/10/2025 3:49 AM EDT [facility] ABSOLUTE LYMPHOCYTES 2,150 850 - 3,900 cells/uL 06/10/2025 3:49 AM EDT [facility] ABSOLUTE MONOCYTES 481 200 - 950 cells/uL 06/10/2025 3:49 AM EDT [facility] ABSOLUTE EOSINOPHILS 896(H) 15 - 500 cells/uL 06/10/2025 3:49 AM EDT [facility] ABSOLUTE BASOPHILS 50 0 - 200 cells/uL 06/10/2025 3:49 AM EDT [facility] NEUTROPHILS PCT 56.9 % 3:49 AM EDT [facility] LYMPHOCYTES 25.9 % 06/10/2025 3:49 AM EDT [facility] MONOCYTES 5.8 % 06/10/2025 3:49 AM EDT [facility] EOSINOPHILS 10.8 % 06/10/2025 3:49 AM EDT [facility] BASOPHILS 0.6 % 06/10/2025 3:49 AM EDT [facility] Blood Blood / Unknown 06/09/2025 9 :54 AM EDT 06/10/2025 2:39 AM EDT Narrative [employer] [facility] - 06/10/2025 3:54 AM EDT FASTING:NO For adults, a slight decrease in the calculated MCHC value (in the range of 30 to 32 g/dL) is most likely not clinically significant; however, it should be interpreted with caution in correlation with other red cell parameters and the patient's clinical condition. us Didi Stein PA-C LAB - BLOOD DRAW Final Resul t [employer] [address] [place] [address], [employer] [address] [address] * (ABNORMAL) ASSAY OF PROSTATE SPECIFIC ANTIGEN TOTAL Routine (06/09/2025 9:54 AM EDT) PSA, TOTAL 25.31(H) < OR = 4.00 ng/mL 06/10/2025 4:58 AM EDT [facility] Blood Blood / Unknown 06/09/2025 9 :54 AM EDT 06/10/2025 2:36 AM EDT [employer] - 06/10/2025 5:20 AM EDT FASTING:NO The [...] DRAW Final Resul t Performing Organization Address [facility] de Phone Number [employer] [address] [address], [employer] [address] [address] * ASSAY OF MAGNESIUM Routine (06/09/2025 9:54 AM EDT) MAGNESIUM 2.1 1.5 - 2.5 mg/dL 06/10/2025 3:49 AM EDT [facility] Blood Blood / Unknown 06/09/2025 9 :54 AM EDT 06/10/2025 2:36 AM EDT [facility] - 06/10/2025 3:54 AM EDT FASTING:NO Didi Stein PA-C LAB - BLOOD DRAW Final Resul t Performing Organization Address [facility] Co de Phone Number [employer] [address] [address], [employer] [address] [address] * (ABNORMAL) HEMOGLOBIN GLYCOSYLATED A1C Routine (06/09/2025 9:54 AM EDT) HEMOGLOBIN A1C 8.1(H) <5.7 % 06/10/2025 4:00 PM EDT [facility] Blood Blood / Unknown 06/09/2025 9 :54 AM EDT 06/10/2025 2:39 AM EDT [facility] [employer] - 06/10/2025 4:05 PM EDT FASTING:NO For [...] LAB - BLOOD DRAW Final Resul t [employer] [address] [place] [address], [facility] [address] [place] [phone] * (ABNORMAL) 25 HYDROXY INCLUDES FRACTIONS IF PERFORMED Routine (06/09/2025 9:54 AM EDT) VITAMIN D, 25-OH, TOTAL 28(L) 30 - 100 ng/mL 06/10/2025 4:58 AM EDT [facility] Blood Blood / Unknown 06/09/2025 9 :54 AM EDT 06/10/2025 2:36 AM EDT [facility] [employer] - 06/10/2025 5:20 AM EDT FASTING:NO Vitamin D Status 25-OH Vitamin D: . Deficiency: <20 ng/mL Insufficiency: 20 - 29 ng/mL Optimal: > or = 30 ng/mL . For 25-OH Vitamin D testing on patients on D2-supplementation and patients for whom quantitation of D2 and D3 fractions is required, the QuestAssureD(TM) 25-OH VIT D, (D2,D3), LC/MS/MS is recommended: order code 65018 (patients >2yrs). . See Note 1 . Note 1 . For additional information, please refer to http://[employer].RadPad/faq/UOV366 (This link is being provided for informational/ educational purposes only.) Didi Stein PA-C LAB - BLOOD DRAW Final Resul t [employer] [address] [place] [address], [employer] [address] [address] * (ABNORMAL) LIPID PANEL Routine (06/09/2025 9:54 AM EDT) [facility] CHOLESTEROL, TOTAL 236(H) <200 mg/dL 06/10/2025 3:49 AM EDT [employer] [facility] HDL CHOLESTEROL 44 > OR = 40 mg/dL 06/10/2025 3:49 AM EDT [employer] [facility] TRIGLYCERIDES 190(H) <150 mg/dL 06/10/2025 3:49 AM EDT [employer] [facility] LDL-CHOLESTEROL 157(H) mg/dL (calc) 06/10/2025 3:49 AM EDT [facility] CHOL/HDLC RATIO 5.4(H) <5.0 (calc) 06/10/2025 3:49 AM EDT [employer] [facility] NON-HDL CHOLESTEROL 192(H) <130 mg/dL (calc) 06/10/2025 3:49 AM EDT [facility] Blood Blood / Unknown 06/09/2025 9 :54 AM EDT 06/10/2025 2:36 AM EDT Narrative [employer] [facility] - 06/10/2025 3:54 AM EDT [...] LDL-C. Gerald HENNESSY et al. GIOVANNA. 2013;310(19): 5277-2185 (http://education.Enconcert.Funsherpa/faq/BYR127) For patients with diabetes plus 1 major ASCVD risk factor, treating to a non-HDL-C goal of <100 mg/dL (LDL-C of <70 mg/dL) is considered a therapeutic option. Didi Stein PA-C LAB - BLOOD DRAW Final Resul t [employer] [facility] [address] [address], [employer] [facility] [address] [place] [address] * (ABNORMAL) COMPREHENSIVE METABOLIC PANEL Routine (06/09/2025 9:54 AM EDT) [facility] GLUCOSE 63(L) 65 - 139 mg/dL 06/10/2025 3:49 AM EDT [employer] [facility] UREA NITROGEN (BUN) 16 7 - 25 mg/dL 06/10/2025 3:49 AM [employer] [facility] CREATININE (blood) 1.50(H) 0.70 - 1.35 mg/dL 06/10/2025 3:49 AM EDT [employer] [facility] EGFR 51(L) > OR = 60 mL/min/1. 73m2 06/10/2025 3:49 AM [employer] [facility] BUN/CREATININE RATIO 11 6 - 22 (calc) 06/10/2025 3:49 AM [employer] [facility] SODIUM 139 135 - 146 mmol/L 06/10/2025 3:49 AM [employer] [facility] POTASSIUM 4.5 3.5 - 5.3 mmol/L 06/10/2025 3:49 AM [employer] [facility] CHLORIDE 104 98 - 110 mmol/L 06/10/2025 3:49 AM [employer] [facility] CARBON DIOXIDE 27 20 - 32 mmol/L 06/10/2025 3:49 AM [employer] [facility] CALCIUM 8.8 8.6 - 10.3 mg/dL 06/10/2025 3:49 AM [employer] [facility] PROTEIN, TOTAL 7.2 6.1 - 8.1 g/dL 06/10/2025 3:49 AM [employer] [facility] ALBUMIN 3.8 3.6 - 5.1 g/dL 06/10/2025 3:49 AM EDT [facility] GLOBULIN 3.4 1.9 - 3.7 g/dL (calc) 06/10/2025 3:49 AM EDT [facility] ALBUMIN/GLOBULI N RATIO 1.1 1.0 - 2.5 (calc) 06/10/2025 3:49 AM EDT [facility] BILIRUBIN, TOTAL 0.3 0.2 - 1.2 mg/dL 06/10/2025 3:49 AM EDT [employer] [facility] ALKALINE PHOSPHATASE 104 35 - 144 U/L 06/10/2025 3:49 AM EDT [facility] AST 13 10 - 35 U/L 06/10/2025 3:49 AM EDT [facility] ALT 15 9 - 46 U/L 06/10/2025 3:49 AM EDT [facility] Blood Blood / Unknown 06/09/2025 9 :54 AM EDT 06/10/2025 2:36 AM EDT Narrative [employer] [facility] - 06/10/2025 3:54 AM EDT FASTING:NO . Non-fasting reference interval . Didi Stein PA-C LAB - BLOOD DRAW Final Resul t [employer] [address] [place] [address], [facility] [address] [place] [phone] * HEALTH HISTORY SCANNED DOCUMENT (06/08/2025 3:00 AM EDT) 06/08/2025 3:00 AM EDT Chtx Provider Default SCAN OTHER ORDERS Final Re [...] HEPATITIS C ANTIBODY NON-REACT ANTHONY NON-REACT ANTHONY [employer] [facility] SIGNAL TO CUT-OFF 0.11 <1.00 [facility] Comment: HCV antibody was non-reactive. There is no laboratory evidence of HCV infection. In most cases, no further action is required. However, if recent HCV exposure is suspected, a test for HCV RNA (test code 51467) is suggested. For additional information please refer to http://education.Muziwave.com/faq/ATE51m7 (This link is being provided for informational/ educational purposes only.) Blood Blood / Unknown 04/17/2022 9 :55 AM EDT 04/17/2022 9:56 AM EDT Cassandra Josué ABBASI LAB - BLOOD DRAW Edited Resu lt - Final [employer] [address] [address], [employer] [facility] [address] [address] * HIV Ag & Ab with Reflex Western Blot (04/17/2022 9:55 AM EDT) HIV AG/AB, 4TH GEN NON-REAC TIVE NON-REAC TIVE [facility] Comment: HIV-1 antigen and HIV-1/HIV-2 antibodies were [...] purpose. For additional information please refer to http://education.[employer].Funsherpa/faq/KYT341 (This link is being provided for informational/ educational purposes only.) The performance of this assay has not been clinically validated in patients less than 2 years old. Blood Blood / Unknown 04/17/2022 9 :55 AM EDT 04/17/2022 9:56 AM EDT Cassandra Moses PA-C LAB - BLOOD DRAW Final Resul t [facility] [address] [address], [employer] [facility] [address],[facility] [place] [address] from Last 3 Months or Most Recently Relevant to Health Maintenance Insurance [place] MEDICAID D[facility] [facility] Care Teams Project Administrator Relationship Specialty Start Date End Date Cassandra Moses PA-C [address] [place] [address] PCP - General Internal Medicine 12/06/21
[2025-08-30 08:21] LABS: Hematocrit 45.2 % (42.0-52.0); Hemoglobin 14.2 g/dl (14.0-18.0); Mean Corpuscular HGB Conc 31.4 g/dl (31.0-36.0); Mean Corpuscular Hemoglobin 27.5 pg (27.0-33.0); Mean Corpuscular Volume 87.4 fL (80.0-98.0); NRBC Abs Auto 0.000 X10*3/uL (0.0-0.012); NRBC Pct Auto 0.0 /100WBC (0.0-0.2); Platelet Count 391 X10*3/uL (160-400); Red Blood Count 5.17 X10*6/uL (4.60-5.80); White Blood Count 8.7 X10*3/uL (4.8-10.8)
[2025-08-30 08:51] LABS: Anion Gap 11 (12-20); Blood Urea Nitrogen 14 mg/dL (9-16); Calcium 9.3 mg/dL (8.4-10.2); Carbon Dioxide 27 mmol/L (22-29); Chloride 105 mmol/L (96-108); Estimated Glomerular Filt Rate 49; Potassium 4.3 mmol/L (3.3-5.1); Sodium 139 mmol/L (135-145)
== END 2025-08-30 07:47 | disposition home or self-care (01) ==
LOC: HO.LAB 07:46
PROVIDERS: PCP Physician Assistant; Visit Provider Internal Medicine Hypertension Specialist
DX: N17.9 Acute kidney failure, unspecified (principal)
CPT/HCPCS: 36415; 80048; 85027

== ENCOUNTER 2025-08-31 09:48 | Outpatient (AMB) | payer OTHER, SELFPAY ==
--- OUTSIDE RECORDS SUMMARY | 2025-08-26 11:30 | XMS_ITS | Encounter Summary ---
Author Organization [facility] Address [address] [place] [address] Care Team Providers Care Wire Bender Name Role Phone Cassandra Moses Primary Care Provider Reason for Visit * Imaging (Routine) - Closed Specialty Diagnoses / Procedures Referred By Lina vazquez Referred To Contact Cardiology Diagnoses Heart failure ([facility] V24, [facility] V28) Procedures Transthoracic echocardiogram (TTE) complete with PRN contrast, bubble, strain, and 3D order panel IL TTE W 2D IMAGE COMPLETE W DOPPLER ECHO & COLOR FLOW DOPPLER ECHO [place] ISAAC 2D COMPLETE W/CONTRAST OR W & WO CONTRAST WITH DOPPLER Arturo Conn, BOZENA [address] [facility] [address] Phone: tel: fax: [facility] Referral ID Status Reason Start Date Expiration Date Visits Re quested Visits Authorized [id number] Closed 02/22/2025 02/22/2026 1 1 Encounter Details Date Type Department Care Team (Latest Contact Info) Description 08/26/2025 12:30 PM EDT Ancillary Procedure [facility] - [address] [place] [phone] Heart failure (CMS/HCC V24, [facility] V28) Social History Tobacco Use Types Packs/Day Years Used Date Smoking Tobacco: Never Smokeless Tobacco: Never Alcohol Use Standard Drinks/Week Comments Not Currently 0 (1 standard drink = 0.6 oz pur e alcohol) Interpersonal Safety Answer Date Record ed Physical Abuse Unrecognized value 11/15/2024 Verbal Abuse Unrecognized value 11/15/2024 Sex and Gender Information Value Date Recorded Sex Assigned at Not on file Legal Sex Male 10:45 PM EST Gender Identity Not on file Sexual Orientation Not on file documented as of this encounter Last Filed Vital Signs Vital Sign Reading Time Taken Comments Blood Pressure 146/92 08/26/2025 2:05 PM EDT Pulse - - Temperature - - Respiratory Rate - - Oxygen Saturation - - Inhaled Oxygen Concentration - - Weight 107 kg (235 lb) 08/26/2025 2:05 PM EDT Height 182.9 cm (6') 08/26/2025 2:05 PM EDT Body Mass Index 31.87 08/26/2025 2:05 PM EDT documented in this encounter Functional Status * Are you deaf or do you have serious difficulty hearing? Answer Date of Assessment Author No 11/08/2024 10:25 PM Alysia White RN * Are you blind or do you have serious difficulty seeing, even when wearing glasses? Answer Date of Assessment Author No 11/08/2024 10:25 PM Alysia White RN * Do you have serious difficulty walking or climbing stairs? Answer Date of Assessment Author No 11/08/2024 10:25 PM Alysia White RN * Do you have serious difficulty dressing or bathing? Answer Date of Assessment Author No 11/08/2024 10:25 PM Alysia White RN * Because of a physical, mental, or emotional condition, do you have serious difficulty doing errandsalone such as visiting the doctor? Answer Date of Assessment Author No 11/08/2024 10:25 PM Alysia White RN documented as of this encounter Mental Status * Because of a physical, mental, or emotional condition, do you have serious difficulty concentrating, remembering, or making decisions? (5 years old or older) Answer Entry Date Author No 11/08/2024 10:25 PM Alysia White RN documented in this encounter Plan of Treatment Pending Results Name Type Priority Associated Diagnoses Date/Time Transthoracic echocardiogram (TTE) complete with PRN contrast, bubble, strain, and 3D order panel Echocardiography Routine Heart failure ([facility] V24, [facility] V28) 08/26/2025 2:06 PM EDT documented as of this encounter Visit Diagnoses Diagnosis Heart failure ([facility] V24, [facility] V28) Unspecified heart failure documented in this encounter Administered Medications Inactive Administered Medications - up to 3 most recent administrations Medication Order MAR Action Action Date Dose Rate Site perflutren lipid microsphere (DEFINITY) 1.3 mL in sodium chloride 0.9% 8.7 mL injection 10 mL, intravenous, Administer over 10 Minutes, Once, On Kimberlee 08/26/25 at 1430, For 1 doseIndications:Heart failure ([facility] V24, [facility] V28) Given 08/26/2025 2:07 PM EDT 10 mL documented in this encounter Orders Medications Ordered That Refugio ht Not Have Been Administered Count Last Ordered Date First Ordered Date perflutren lipid microsphere (DEFINITY) 1.3 mL in sodium chloride 0.9% 8.7 mL injection 1 08/26/2025 documented in this encounter Care Teams Wire Bender Relationship Specialty Start Date End Date Cassandra Moses PA [address] [place] [address] PCP - General 07/12/22 documented as of this encounter
[2025-08-31 09:49] VITALS: BP 134/88; PULSE 95; O2SAT 93; BMI 30.2
--- NOTE | 2025-08-31 09:49 | HO.NEPHOV ---
Vital Signs 08/31/25 09:49 Height 6 ft 2 in Weight 235 lb BMI 30.2 BP 134/88 Blood Pressure Location Lt brachial Position Sitting Pulse 95 Pulse Source Pulse Oximeter Pulse Oximetry (%) 93 Oxygen Delivery Method Room Air Intake Visit Reasons: 6wk f/u w/labs lvm Pipe Fittings Molder Required: Yes Pipe Fittings Molder Name: Gianfranco [id number] Accompanied by: Spouse Allergies No Known Drug Allergies Allergy (Verified 08/31/25 09:51) Unknown Medication List - Last Reconciled 08/31/25 by Erasmo Pulido MD albuterol sulfate 90 mcg/actuation 2 puffs inhalation Q4H PRN aripiprazole 2 mg PO DAILY atorvastatin 80 mg PO BEDTIME Held on 05/26/25. Instructions: Resume on 07/03/25. Hold while on daptomycin, per infectious disease carvedilol 12.5 mg PO BID daptomycin 500 mg IV DAILY dulaglutide (Trulicity) 1.5 mg subcut TU gabapentin 100 mg PO TID insulin degludec (Tresiba FlexTouch U-100 insulin) 32 units subcut DAILY insulin lispro (Humalog KwikPen (U-100) Insulin) See Protocol sliding scale doses subcut TIDAC levothyroxine 50 mcg PO DAILY@0600 pantoprazole 40 mg PO DAILY@0630 sacubitril-valsartan 97-103 mg (Entresto) 1 tab PO BID tamsulosin 0.4 mg PO DAILY torsemide 40 mg PO BID Held on 05/26/25. Instructions: Resume on 06/05/25. Hold until your nephrology visit. Dr. Delong will make further recommendations about whether to resume or continue holding. HPI Comments Details: The patient is a 65-year-old male presenting with chronic kidney disease. He was referred for nephrology consultation due to ongoing kidney issues. The patient has a history of diabetes mellitus, and has been managing it alongside hyperlipidemia and hypertension. He also reports benign prostatic hyperplasia History of coronary artery disease status post stent placement. History of cardiomyopathy status post CardioMEMS. History of COPD/asthma The patient reports swelling in his legs, identified as peripheral edema, despite adherence to diuretic therapy. He attributes the edema to cardiac issues, as his heart rate has been slow, necessitating cardiology consultations. 07/13/25 The patient is a 65-year-old male presenting with chronic kidney disease follow-up Has increased UO. Ultrasound pending for further investigation. 08/31/25 The patient is a 65-year-old male presenting with chronic kidney disease and hypertension. His kidney function has improved since the last visit, and he is on a diuretic regimen to manage fluid retention. The patient has not yet undergone the recommended kidney ultrasound, It is unclear if he is still on Torsemide. Based on the EHR , it is on hold but he claims to take it twice a day [facility] Medical History Osteomyelitis CKD (chronic kidney disease) stage 3, GFR 30-59 ml/min Class 1 obesity Social History Household Members: Spouse Housing: Apartment Do you presently have visiting nurse or other home services: Yes (CREDIT HISTORIAN) Patient Tobacco Use Status: Never used Tobacco e-Cigarette/Vaping Use: Never Used service: No Physical Exam Vital Signs: Last Vital Signs Pulse 95 08/31/25 09:49 BP 134/88 08/31/25 09:49 Pulse Ox 93 08/31/25 09:49 Oxygen Delivery Method Room Air 08/31/25 09:49 BMI result Body Mass Index 30.2 Const General: comfortable Nutritional Appearance: well nourished Orientation/consciousness: patient oriented x3 HEENT Head: No normal to inspection Mouth: moist mucous membranes Neck Neck: Yes supple and Yes no JVD Resp Auscultation: clear to auscultation bilaterally, no rales and rub present Cardio Jugular venous distension: no JVD Palpation: no palpable S3 and no palpable S4 Heart sounds: no rubs GI Palpation (GI): Soft to palpation and nontender Percussion: No Fluid wave present General: Yes no CVA tenderness Back/Spine/Pelvis Back: no CVA tenderness Skin General skin exam: no rashes or lesions noted Neuro General: patient oriented x3 Extrem General: No clubbing and Yes edema Results Reviewed Nephrology Results: Hgb, (14.0-18.0) 14.2 g/dl 08/30/25 WBC, (4.8-10.8) 8.7 X10*3/uL 08/30/25 Plt Count, (160-400) 391 X10*3/uL Δ 08/30/25 Sodium, (135-145) 139 mmol/L 08/30/25 Potassium, (3.3-5.1) 4.3 mmol/L 08/30/25 Chloride, (96-108) 105 mmol/L 08/30/25 Carbon Dioxide, (22-29) 27 mmol/L 08/30/25 BUN, (9-16) 14 mg/dL 08/30/25 Creatinine, (0.5-1.4) 1.44 mg/dL H 08/30/25 Calcium, (8.4-10.2) 9.3 mg/dL Δ 08/30/25 Urine Protein, (Neg-Trace) 30 (1+) mg/dL H 06/11/25 Urine Creatinine 252.39 mg/dL 06/11/25 Assessment & Plan Assessment & Plan (1) VINCENT (acute kidney injury): Code(s): N17.9 - Acute kidney failure, unspecified Category: Medical Plan CKD 3 a in a setting of longstanding hypertension diabetes mellitus and cardiomyopathy. Differential diagnosis would include underlying diabetic hypertensive kidney disease. Bump in serum creatinine may be related to altered hemodynamics. Obstructive uropathy should certainly be ruled out. Creatinine has improved Await renal ultrasonogram. - Reordered urine protein creatinine ratio - minimal Decrease Torsemide to 40 mg daily from BID ( 07/13/25 and 08/31/25 !) - New eRX sent. Low salt diet Orders: Orders Basic Metabolic Panel 2 Months N17.9 - Acute kidney failure, unspecified US renal BI Today N17.9 - Acute kidney failure, unspecified Medications: New torsemide 40 mg PO DAILY 30 tabs 2RF Coding Level of Care Code Est Pt Level 4 (36852) Diagnoses VINCENT (acute kidney injury) N17.9
--- OUTSIDE RECORDS SUMMARY | 2025-08-31 11:11 | XMS_ITS | Clinical Summary ---
Author Organization [facility] Address [address] [address] Phone Care Team Providers Care Licensed Nuclear Control Room Operator Name Role Phone Unavailable Primary Care Provider [...] to complete [place] [id number] UHC Medicare [place]HC Medicare Medicaid [place]
--- OUTSIDE RECORDS SUMMARY | 2025-08-31 11:11 | XMS_ITS | Clinical Summary ---
Author Organization [facility] Address [address] [place] [address] Phone Care Team Providers Care [employer] Division Manager Name Role Phone Cassandra Moses Primary Care [...] Description 08/26/2025 12:30 PM EDT Ancillary Procedure [facility] [address] [place] [address] Heart failure ([facility] V24, [facility] V28) from Last 3 Months Medical History Medical History Date Comments Diabetes mellitus ([facility] V24, [facility] V28) Social History Tobacco Use Types [...] mmol/L LAB CHEMISTRY METHOD 11/16/2024 4:39 AM [facility] Potassium 3.7 3.5 - 5.5 mmol/L LAB CHEMISTRY METHOD 11/16/2024 4:39 AM [facility] Chloride 107 96 - 110 mmol/L LAB CHEMISTRY METHOD 11/16/2024 4:39 AM [facility] CO2 24 21 - 32 mmol/L LAB CHEMISTRY METHOD 11/16/2024 4:39 AM [facility] Anion Gap 7 3 - 11 LAB CHEMISTRY METHOD 11/16/2024 4:39 AM [facility] Glucose 157(H) 70 - 100 mg/dL LAB CHEMISTRY METHOD 11/16/2024 4:39 AM [facility] BUN 23 5 - 25 mg/dL LAB CHEMISTRY METHOD 11/16/2024 4:39 AM [facility] Creatinine 1.58(H) 0.70 - 1.30 mg/dL LAB CHEMISTRY METHOD 11/16/2024 4:39 AM [facility] eGFR 49(L) >=60 mL/min/1. 73m2 LAB CHEMISTRY METHOD 11/16/2024 4:39 AM [facility] Comment:Calculation based on the Chronic Kidney Disease Epidemiology Collaboration (CKD-EPI) equation refit without adjustment for race. BUN/Creatinine Ratio 14.6 LAB CHEMISTRY METHOD 11/16/2024 4:39 AM [facility] Calcium 8.2(L) 8.5 - 10.5 mg/dL LAB CHEMISTRY METHOD 11/16/2024 4:39 AM EST [facility] Blood Venous blood specimen / Unknown Venipuncture / Unknown 11/16/2024 3:55 AM EST 11/16/2024 3:59 AM EST us Antonio Doss MD LAB BLOOD ORDERABLES Final Res ult Performing Organization Address [facility]/ZIP Co de Phone Number [facility] [address] [place] [address], [place] [phone] * (ABNORMAL) Hemoglobin A1c (11/15/2024 1:54 PM EST) Hemoglobin A1C 13.5(H) <6.5 % LAB CHEMISTRY METHOD 11/16/2024 1:32 PM EST [facility] Mean Bld Glu Estim. 341 mg/dL LAB CHEMISTRY METHOD 11/16/2024 1:32 PM EST [facility] Blood Venous blood specimen / Unknown Venipuncture / Unknown 11/15/2024 1:54 PM EST 11/15/2024 2:08 PM EST us Nan BOLANOS LAB BLOOD ORDERABLES Fi nal Result Performing Organization Address [facility]/ZIP Co de Phone Number [facility] [address] [place] [address], [place] [phone] from Last 3 Months or Most Recently Relevant to Health Maintenance Insurance [facility] Member Subscriber Plan / Payer (Ef fective 2025-Present) Name:Yanick Arita Relation to Subscriber:Self Name:Yanick Arita Payer ID:[id number] Group ID:[id number] Type:Not on file Address: [address] [place] [phone] Advance Directives * Full Code - Default [...] currently active code status orders. Care Teams [employer] Division Manager Relationship Specialty Start Date End Date Cassandra Moses PA [address] [place] [phone] PCP - General 07/12/22
--- OUTSIDE RECORDS SUMMARY | 2025-08-31 11:11 | XMS_ITS | Clinical Summary ---
Author Organization [facility] Address [address] [place] [address] Care Team Providers Care Spray Drier Operator Name Role Phone Cassandra Moses PA-C [...] Description 08/10/2025 1:20 PM EDT Office Visit [address] [address] Nikolai Stephenson, Yanick Nguyen 07/26/2025 10:20 AM EDT Telemedicine Visit [address] [address] Didi Stein PA-C 06/17/2025 3:00 PM EDT Office Visit [address] [address] Nikolai Stephenson, Magali Orourke 06/09/2025 9:00 AM EDT Office Visit [address] [phone] Didi Stein PA-C 06/09/2025 Interim Notes [address] [phone] Abena Martinez MA from Last 3 Months [...] Falls Prevention 02/22/2025 Dental Prophy 03/23/2025 09/21/2024 [id number] ( season) 2025 023, 02/15/2022 Imm-Influenza (#1) [...] hyperglycemia, with long-term current use of insulin ([facility]) REFERRAL TO NEPHROLOGY Urgent 06/11/2025 3:00 AM EDT Stage 3b chronic kidney disease ([facility]) RFLX - REFLEXIVE URINE CULTURE Routine 06/09/2025 9:54 AM EDT ASSAY OF PROSTATE SPECIFIC ANTIGEN TOTAL Routine 06/09/2025 9:54 AM EDT [facility] Class 1 obesity due to excess calories with serious comorbidity and body mass index (BMI) of 30.0 to 30.9 in adult Type 2 diabetes mellitus with hyperglycemia, with long-term current use of insulin ([facility]) Congestive heart failure, unspecified HF chronicity, unspecified heart failure type ([facility]) Hypothyroidism, unspecified type Stage 3 chronic kidney disease, unspecified whether stage 3a or 3b CKD ([facility]) Elevated prostate specific antigen (PSA) Mild vitamin D deficiency VITAMIN B12 & FOLATE Routine 06/09/2025 9:54 AM EDT Routine general medical examination at a [facility] facility Class 1 obesity due to excess calories with serious comorbidity and body mass index (BMI) of 30.0 to 30.9 in adult Type 2 diabetes mellitus with hyperglycemia, with long-term current use of insulin ([facility]) Congestive heart failure, unspecified HF chronicity, unspecified heart failure type ([facility]) Hypothyroidism, unspecified type Stage 3 chronic kidney disease, unspecified whether stage 3a or 3b CKD ([facility]) Elevated prostate specific antigen (PSA) Mild vitamin D deficiency ASSAY OF MAGNESIUM Routine 06/09/2025 9: 54 AM EDT Routine general medical examination at a [facility] facility Class 1 obesity due to excess calories with serious comorbidity and body mass index (BMI) of 30.0 to 30.9 in adult Type 2 diabetes mellitus with hyperglycemia, with long-term current use of insulin ([facility]) Congestive heart failure, unspecified HF chronicity, unspecified heart failure type ([facility]) Hypothyroidism, unspecified type Stage 3 chronic kidney disease, unspecified whether stage 3a or 3b CKD ([facility]) Elevated prostate specific antigen (PSA) Mild vitamin D deficiency 25 HYDROXY INCLUDES FRACTIONS IF PERFORMED Routine 06/09/2025 9:54 AM EDT Routine general medical examination at a [facility] facility Class 1 obesity due to excess calories with serious comorbidity and body mass index (BMI) of 30.0 to 30.9 in adult Type 2 diabetes mellitus with hyperglycemia, with long-term current use of insulin ([facility]) Congestive heart failure, unspecified HF chronicity, unspecified heart failure type ([facility]) Hypothyroidism, unspecified type Stage 3 chronic kidney disease, unspecified whether stage 3a or 3b CKD ([facility]) Elevated prostate specific antigen (PSA) Mild vitamin D deficiency BLOOD COUNT COMPLETE AUTO&AUTO DIFRNTL WBC Routine 06/09/2025 9:54 AM EDT Routine general medical examination at a [facility] facility Class 1 obesity due to excess calories with serious comorbidity and body mass index (BMI) of 30.0 to 30.9 in adult Type 2 diabetes mellitus with hyperglycemia, with long-term current use of insulin ([facility]) Congestive heart failure, unspecified HF chronicity, unspecified heart failure type ([facility]) Hypothyroidism, unspecified type Stage 3 chronic kidney disease, unspecified whether stage 3a or 3b CKD ([facility]) Elevated prostate specific antigen (PSA) Mild vitamin D deficiency COMPREHENSIVE METABOLIC PANEL Routine 06/09/2025 9:54 AM EDT Routine general medical examination at a health care facility Class 1 obesity due to excess calories with serious comorbidity and body mass index (BMI) of 30.0 to 30.9 in adult Type 2 diabetes mellitus with hyperglycemia, with long-term current use of insulin ([facility]) Congestive heart failure, unspecified HF chronicity, unspecified heart failure type ([facility]) Hypothyroidism, unspecified type Stage 3 chronic kidney disease, unspecified whether stage 3a or 3b CKD ([facility]) Elevated prostate specific antigen (PSA) Mild vitamin D deficiency LIPID PANEL Routine 06/09/2025 9:54 AM EDT Routine general medical examination at a [facility] Class 1 obesity due to excess calories with serious comorbidity and body mass index (BMI) of 30.0 to 30.9 in adult Type 2 diabetes mellitus with hyperglycemia, with long-term current use of insulin ([facility]) Congestive heart failure, unspecified HF chronicity, unspecified heart failure type ([facility]) Hypothyroidism, unspecified type Stage 3 chronic kidney disease, unspecified whether stage 3a or 3b CKD ([facility]) Elevated prostate specific antigen (PSA) Mild vitamin D deficiency TSH W/RFLX FREE T4 Routine 06/09/2025 9: 54 AM EDT Routine general medical examination at a [facility] facility Class 1 obesity due to excess calories with serious comorbidity and body mass index (BMI) of 30.0 to 30.9 in adult Type 2 diabetes mellitus with hyperglycemia, with long-term current use of insulin ([facility]) Congestive heart failure, unspecified HF chronicity, unspecified heart failure type ([facility]) Hypothyroidism, unspecified type Stage 3 chronic kidney disease, unspecified whether stage 3a or 3b CKD ([facility]) Elevated prostate specific antigen (PSA) Mild vitamin D deficiency HEMOGLOBIN GLYCOSYLATED A1C Routine 06/09/2025 9:54 AM EDT Routine general medical examination at a [facility] facility Class 1 obesity due to excess calories with serious comorbidity and body mass index (BMI) of 30.0 to 30.9 in adult Type 2 diabetes mellitus with hyperglycemia, with long-term current use of insulin ([facility]) Congestive heart failure, unspecified HF chronicity, unspecified heart failure type ([facility]) Hypothyroidism, unspecified type Stage 3 chronic kidney disease, unspecified whether stage 3a or 3b CKD ([facility]) Elevated prostate specific antigen (PSA) Mild vitamin D deficiency URINALYSIS, COMPLETE W/REFLEX TO CULTURE Routine 06/09/2025 9:54 AM EDT Routine general medical examination at a [facility] Class 1 obesity due to excess calories with serious comorbidity and body mass index (BMI) of 30.0 to 30.9 in adult Type 2 diabetes mellitus with hyperglycemia, with long-term current use of insulin ([facility]) Congestive heart failure, unspecified HF chronicity, unspecified heart failure type ([facility]) Hypothyroidism, unspecified type Stage 3 chronic kidney disease, unspecified whether stage 3a or 3b CKD ([facility]) Elevated prostate specific antigen (PSA) Mild vitamin D deficiency MICROALBUMIN/CREATINI NE RATIO, URINE, RANDOM Routine 06/09/2025 9:54 AM EDT Routine general medical examination at a [facility] facility Class 1 obesity due to excess calories with serious comorbidity and body mass index (BMI) of 30.0 to 30.9 in adult Type 2 diabetes mellitus with hyperglycemia, with long-term current use of insulin ([facility]) Congestive heart failure, unspecified HF chronicity, unspecified heart failure type ([facility]) Hypothyroidism, unspecified type Stage 3 chronic kidney disease, unspecified whether stage 3a or 3b CKD ([facility]) Elevated prostate specific antigen (PSA) Mild vitamin [...] 2 diabetes mellitus with hypoglycemia without coma ([facility]) REFERRAL TO DIABETIC RETINAL EXAM Routine 11/29/2023 3:00 AM EST Uncontrolled type 2 diabetes mellitus with hypoglycemia without coma ([facility]) HIV 1/2 AG & AB W/RFLX [...] - 4.50 mIU/L 06/10/2025 4:58 AM EDT [facility] Blood Blood / Unknown 06/09/2025 9 :54 AM EDT 06/10/2025 2:36 AM EDT Narrative [facility] - 06/10/2025 5:20 AM EDT FASTING:NO Didi Stein PA-C LAB - BLOOD DRAW Final Resul t [facility] [address] [place] [address], [facility] [address] [address] * (ABNORMAL) URINALYSIS, COMPLETE W/REFLEX TO CULTURE Urine Routine (06/09/2025 9:54 AM EDT) COLOR YELLOW YELLOW 06/10/2025 3:17 AM EDT [facility] APPEARANCE CLEAR CLEAR 06/10/2025 3:17 AM EDT [facility] SPECIFIC GRAVITY 1.019 1.001 - 1.035 06/10/2025 3:17 AM EDT [facility] URINE PH 6.0 5.0 - 8.0 06/10/2025 3:17 AM EDT [facility] GLUCOSE NEGATIVE NEGATIVE 06/10/2025 3:17 AM EDT [facility] BILIRUBIN NEGATIVE NEGATIVE 06/10/2025 3:17 AM EDT [facility] KETONES NEGATIVE NEGATIVE 06/10/2025 3:17 AM EDT [facility] OCCULT BLOOD NEGATIVE NEGATIVE 06/10/2025 3:17 AM EDT [facility] URINE PROTEIN 1+(A) NEGATIVE 06/10/2025 3:17 AM EDT [facility] NITRITE NEGATIVE NEGATIVE 06/10/2025 3:17 AM EDT [facility] LEUKOCYTE ESTERASE NEGATIVE NEGATIVE 06/10/2025 3:17 AM EDT [facility] URINE LEUKOCYTES NONE SEEN 0 - 5 /HPF 06/10/2025 3:17 AM EDT [facility] RBC NONE SEEN 0 - 2 /HPF 06/10/2025 3:17 AM EDT [facility] SQUAMOUS EPITHELIAL CELLS NONE SEEN < OR = 5 /HPF 06/10/2025 3:17 AM EDT [facility] BACTERIA NONE SEEN NONE SEEN /HPF 06/10/2025 3:17 AM EDT [facility] HYALINE CAST NONE SEEN NONE SEEN /LPF 06/10/2025 3:17 AM EDT [facility] SEE NOTE SEE NOTE 06/10/2025 3:17 AM EDT [facility] Urine Urine specimen / Unknown 06/09/2025 9:54 AM EDT 06/10/2025 2:52 AM EDT Narrative [facility] - 06/10/2025 3:17 AM EDT FASTING:NO This urine was analyzed for the presence of WBC, RBC, bacteria, casts, and other formed elements. Only those elements seen were reported. . . Didi BOLANOS-Maureen LAB URINE AMBULATORY Final R esult Performing Organization Address City/[facility]/ZIP Co de Phone Number [facility] [address] [address], [facility] [address] [address] * RFLX - REFLEXIVE URINE CULTURE Routine (06/09/2025 9:54 AM EDT) REFLEXIVE URINE CULTURE SEE NOTE 06/10/2025 3:17 AM EDT [facility] 06/09/2025 9:54 AM EDT 06/10/2025 2:52 AM EDT [facility] - 06/10/2025 3:17 AM EDT FASTING:NO NO CULTURE INDICATED Didi BOLANOS-C LAB - MICROBIOLOGY AMBULATOR Y Final Result Performing Organization Address [facility]/ZIP Co de Phone Number [facility] [address] [address], [facility] [address] [address] * (ABNORMAL) MICROALBUMIN/CREATININE RATIO, URINE, RANDOM Urine Routine (06/09/2025 9:54 AM EDT) CREATININE, RANDOM URINE 165 20 - 320 mg/dL 06/10/2025 5:52 PM EDT [facility] MICROALBUMIN 12.2 mg/dL 06/10/2025 5:52 PM EDT [facility] MICROALBUMIN/CRE ATININE RATIO, RANDOM URINE 74(H) <30 mg/g creat 06/10/2025 5:52 PM EDT [facility] Urine Urine specimen / Unknown 06/09/2025 9:54 AM EDT 06/10/2025 2:07 AM EDT [facility] - 06/10/2025 5:58 PM EDT FASTING:NO Reference [...] PA-C LAB URINE AMBULATORY Final R esult [facility] [address] [address], [facility] [address] [address] * VITAMIN B12 & FOLATE Routine (06/09/2025 9:54 AM EDT) VITAMIN B12 391 200 - 1,100 pg/mL 06/10/2025 4:58 AM EDT [facility] FOLATE, SERUM 8.0 ng/mL 06/10/2025 4:58 AM EDT [facility] Blood Blood / Unknown 06/09/2025 9 :54 AM EDT 06/10/2025 2:36 AM EDT [employer] [facility] - 06/10/2025 5:20 AM EDT [...] LAB - BLOOD DRAW Final Resul t [facility] [address] [place] [address], [facility] [address] [address] * (ABNORMAL) BLOOD COUNT COMPLETE AUTO&AUTO DIFRNTL WBC Routine (06/09/2025 9:54 AM EDT) WHITE BLOOD CELL COUNT 8.3 3.8 - 10.8 Thousand/ uL 06/10/2025 3:49 AM EDT [facility] RED BLOOD CELL COUNT 4.47 4.20 - 5.80 Million/u L 06/10/2025 3:49 AM EDMobiCart [facility] HEMOGLOBIN 12.6(L) 13.2 - 17.1 g/dL 06/10/2025 3:49 AM [facility]MobiCart [facility] HEMATOCRIT 40.4 38.5 - 50.0 % 06/10/2025 3:49 AM [facility]Opzi MCV 90.4 80.0 - 100.0 fL 06/10/2025 3:49 AM [facility]Opzi MCH 28.2 27.0 - 33.0 pg 06/10/2025 3:49 AM EDT [facility] MCHC 31.2(L) 32.0 - 36.0 g/dL 06/10/2025 3:49 AM [facility]Opzi RDW 15.4(H) 11.0 - 15.0 % 06/10/2025 3:49 AM EDT [facility] PLATELET COUNT 353 140 - 400 Thousand/ uL 06/10/2025 3:49 AM [facility]Opzi MPV 9.5 7.5 - 12.5 fL 06/10/2025 3:49 AM EDT [facility] ABSOLUTE NEUTROPHILS 4,723 1,500 - 7,800 cells/uL 06/10/2025 3:49 AM EDT [facility] ABSOLUTE LYMPHOCYTES 2,150 850 - 3,900 cells/uL 06/10/2025 3:49 AM EDT [facility] ABSOLUTE MONOCYTES 481 200 - 950 cells/uL 06/10/2025 3:49 AM EDT [facility] ABSOLUTE EOSINOPHILS 896(H) 15 - 500 cells/uL 06/10/2025 3:49 AM EDT [facility] ABSOLUTE BASOPHILS 50 0 - 200 cells/uL 06/10/2025 3:49 AM EDT [facility] NEUTROPHILS PCT 56.9 % 3:49 AM EDT [facility] LYMPHOCYTES 25.9 % 06/10/2025 3:49 AM EDT [facility] MONOCYTES 5.8 % 06/10/2025 3:49 AM EDT [facility] EOSINOPHILS 10.8 % 06/10/2025 3:49 AM EDT [facility] BASOPHILS 0.6 % 06/10/2025 3:49 AM EDT [facility] Blood Blood / Unknown 06/09/2025 9 :54 AM EDT 06/10/2025 2:39 AM EDT Narrative [facility] - 06/10/2025 3:54 AM EDT FASTING:NO For adults, a slight decrease in the calculated MCHC value (in the range of 30 to 32 g/dL) is most likely not clinically significant; however, it should be interpreted with caution in correlation with other red cell parameters and the patient's clinical condition. us Didi Stein PA-C LAB - BLOOD DRAW Final Resul t [facility] [address] [place] [phone], [facility] [address] [address] * (ABNORMAL) ASSAY OF PROSTATE SPECIFIC ANTIGEN TOTAL Routine (06/09/2025 9:54 AM EDT) PSA, TOTAL 25.31(H) < OR = 4.00 ng/mL 06/10/2025 4:58 AM EDT [facility] Blood Blood / Unknown 06/09/2025 9 :54 AM EDT 06/10/2025 2:36 AM EDT [facility] - 06/10/2025 5:20 AM EDT FASTING:NO The [...] DRAW Final Resul t Performing Organization Address [facility] de Phone Number [facility] [address] [address], [facility] [address] [address] * ASSAY OF MAGNESIUM Routine (06/09/2025 9:54 AM EDT) MAGNESIUM 2.1 1.5 - 2.5 mg/dL 06/10/2025 3:49 AM EDT [facility] Blood Blood / Unknown 06/09/2025 9 :54 AM EDT 06/10/2025 2:36 AM EDT [facility] - 06/10/2025 3:54 AM EDT FASTING:NO Didi Stein PA-C LAB - BLOOD DRAW Final Resul t Performing Organization Address [facility] Co de Phone Number [facility] [address] [address], [facility] [address] [address] * (ABNORMAL) HEMOGLOBIN GLYCOSYLATED A1C Routine (06/09/2025 9:54 AM EDT) HEMOGLOBIN A1C 8.1(H) <5.7 % 06/10/2025 4:00 PM EDT [facility] Blood Blood / Unknown 06/09/2025 9 :54 AM EDT 06/10/2025 2:39 AM EDT [facility] - 06/10/2025 4:05 PM EDT FASTING:NO For [...] LAB - BLOOD DRAW Final Resul t [facility] [address] [place] [address], [facility] [address] [place] [phone] * (ABNORMAL) 25 HYDROXY INCLUDES FRACTIONS IF PERFORMED Routine (06/09/2025 9:54 AM EDT) VITAMIN D, 25-OH, TOTAL 28(L) 30 - 100 ng/mL 06/10/2025 4:58 AM EDT [facility] Blood Blood / Unknown 06/09/2025 9 :54 AM EDT 06/10/2025 2:36 AM EDT [facility] - 06/10/2025 5:20 AM EDT FASTING:NO Vitamin D Status 25-OH Vitamin D: . Deficiency: <20 ng/mL Insufficiency: 20 - 29 ng/mL Optimal: > or = 30 ng/mL . For 25-OH Vitamin D testing on patients on D2-supplementation and patients for whom quantitation of D2 and D3 fractions is required, the QuestAssureD(TM) 25-OH VIT D, (D2,D3), LC/MS/MS is recommended: order code 25652 (patients >2yrs). . See Note 1 . Note 1 . For additional information, please refer to http://ShopAdvisor.Brandwatch/faq/KLC973 (This link is being provided for informational/ educational purposes only.) Didi Stein PA-C LAB - BLOOD DRAW Final Resul t [facility] [address] [place] [address], [facility] [address] [address] * (ABNORMAL) LIPID PANEL Routine (06/09/2025 9:54 AM EDT) [facility] CHOLESTEROL, TOTAL 236(H) <200 mg/dL 06/10/2025 3:49 AM EDT [facility] HDL CHOLESTEROL 44 > OR = 40 mg/dL 06/10/2025 3:49 AM EDT [facility] TRIGLYCERIDES 190(H) <150 mg/dL 06/10/2025 3:49 AM EDT [facility] LDL-CHOLESTEROL 157(H) mg/dL (calc) 06/10/2025 3:49 AM EDT [facility] CHOL/HDLC RATIO 5.4(H) <5.0 (calc) 06/10/2025 3:49 AM EDT [facility] NON-HDL CHOLESTEROL 192(H) <130 mg/dL (calc) 06/10/2025 3:49 AM EDT [facility] Blood Blood / Unknown 06/09/2025 9 :54 AM EDT 06/10/2025 2:36 AM EDT Narrative [facility] - 06/10/2025 3:54 AM EDT FASTING:NO [...] LDL-C. Gerald HENNESSY et al. GIOVANNA. 2013;310(19): 3139-6772 (http://education.Chels[employer].ACTION SPORTS/faq/PDU302) For patients with diabetes plus 1 major ASCVD risk factor, treating to a non-HDL-C goal of <100 mg/dL (LDL-C of <70 mg/dL) is considered a therapeutic option. Didi Stein PA-C LAB - BLOOD DRAW Final Resul t [facility] [address] [address], [facility] [address] [place] [address] * (ABNORMAL) COMPREHENSIVE METABOLIC PANEL Routine (06/09/2025 9:54 AM EDT) [facility] GLUCOSE 63(L) 65 - 139 mg/dL 06/10/2025 3:49 AM EDT [facility] UREA NITROGEN (BUN) 16 7 - 25 mg/dL 06/10/2025 3:49 AM EDCardioMind [facility] CREATININE (blood) 1.50(H) 0.70 - 1.35 mg/dL 06/10/2025 3:49 AM EDT [facility] EGFR 51(L) > OR = 60 mL/min/1. 73m2 06/10/2025 3:49 AM EDMobiCart [facility] BUN/CREATININE RATIO 11 6 - 22 (calc) 06/10/2025 3:49 AM EDCardioMind [facility] SODIUM 139 135 - 146 mmol/L 06/10/2025 3:49 AM EDCardioMind [facility] POTASSIUM 4.5 3.5 - 5.3 mmol/L 06/10/2025 3:49 AM EDCardioMind [facility] CHLORIDE 104 98 - 110 mmol/L 06/10/2025 3:49 AM EDCardioMind [facility] CARBON DIOXIDE 27 20 - 32 mmol/L 06/10/2025 3:49 AM EDMobiCart [facility] CALCIUM 8.8 8.6 - 10.3 mg/dL 06/10/2025 3:49 AM EDMobiCart [facility] PROTEIN, TOTAL 7.2 6.1 - 8.1 g/dL 06/10/2025 3:49 AM [employer]MobiCart [facility] ALBUMIN 3.8 3.6 - 5.1 g/dL 06/10/2025 3:49 AM EDT [facility] GLOBULIN 3.4 1.9 - 3.7 g/dL (calc) 06/10/2025 3:49 AM EDT [facility] ALBUMIN/GLOBULI N RATIO 1.1 1.0 - 2.5 (calc) 06/10/2025 3:49 AM EDT [facility] BILIRUBIN, TOTAL 0.3 0.2 - 1.2 mg/dL 06/10/2025 3:49 AM EDT [facility] ALKALINE PHOSPHATASE 104 35 - 144 U/L 06/10/2025 3:49 AM EDT [facility] AST 13 10 - 35 U/L 06/10/2025 3:49 AM EDT [facility] ALT 15 9 - 46 U/L 06/10/2025 3:49 AM EDT [facility] Blood Blood / Unknown 06/09/2025 9 :54 AM EDT 06/10/2025 2:36 AM EDT Narrative [facility] - 06/10/2025 3:54 AM EDT FASTING:NO . Non-fasting reference interval . Didi Stein PA-C LAB - BLOOD DRAW Final Resul t [facility] [address] [place] [address], [facility] [address] [place] [phone] * HEALTH HISTORY SCANNED DOCUMENT (06/08/2025 3:00 AM EDT) 06/08/2025 3:00 AM EDT Chwy Provider Default SCAN OTHER ORDERS Final Re [...] HEPATITIS C ANTIBODY NON-REACT ANTHONY NON-REACT ANTHONY [facility] SIGNAL TO CUT-OFF 0.11 <1.00 [facility] Comment: HCV antibody was non-reactive. There is no laboratory evidence of HCV infection. In most cases, no further action is required. However, if recent HCV exposure is suspected, a test for HCV RNA (test code 05176) is suggested. For additional information please refer to http://education.[employer]/faq/LYK87c1 (This link is being provided for informational/ educational purposes only.) Blood Blood / Unknown 04/17/2022 9 :55 AM EDT 04/17/2022 9:56 AM EDT Cassandra Josué [facility] - BLOOD DRAW Edited Resu lt - Final [facility] [address] [id number], [facility] [address] [address] * HIV Ag & Ab with Reflex Western Blot (04/17/2022 9:55 AM EDT) HIV AG/AB, 4TH GEN NON-REAC TIVE NON-REAC TIVE [facility] Comment: HIV-1 antigen and HIV-1/HIV-2 antibodies were [...] purpose. For additional information please refer to http://education.[employer]/faq/BMV807 (This link is being provided for informational/ educational purposes only.) The performance of this assay has not been clinically validated in patients less than 2 years old. Blood Blood / Unknown 04/17/2022 9 :55 AM EDT 04/17/2022 9:56 AM EDT Cassandra Moses PA-C LAB - BLOOD DRAW Final Resul t [facility] [address] [address], [facility] [address],[facility] [place] [address] from Last 3 Months or Most Recently Relevant to Health Maintenance [place] [facility] Care Teams Spray Drier Operator Relationship Specialty Start Date End Date Cassandra Moses PA-C [address] [place] [address] PCP - General Internal Medicine 12/06/21
== END 2025-08-31 10:05 | disposition home or self-care (01) ==
LOC: HO.HKA 09:48
PROVIDERS: PCP Physician Assistant; Visit Provider Internal Medicine Hypertension Specialist
DX: N17.9 Acute kidney failure, unspecified (principal)
CPT/HCPCS: 99214

== ENCOUNTER → 2025-08-31 09:48 | Outpatient (BNVA) | payer OTHER, SELFPAY | PROVIDERS: PCP Physician Assistant; Visit Provider Internal Medicine Hypertension Specialist | DX: N17.9 Acute kidney failure, unspecified (principal) | CPT/HCPCS: 99212 ==

== ENCOUNTER 2025-09-17 09:33 | Outpatient (REF) | payer OTHER, SELFPAY ==
--- OUTSIDE RECORDS SUMMARY | 2024-04-02 05:49 | XMS_ITS | Continuity of Care Document ---
Author Organization [facility] Address [address] [address] Phone Care Team Providers Care Custom Stock Maker Name Role Phone Shelly Horvath OT Unavailable Unavailable Advance Directives Directive Yes / No Effective Date File Name No Information Encounters Encounter Description Practice Location Reason(s) For Visit Diagnoses Date Provider [facility], [address] [address], [place], [place], [id number], [place] tel:[phone] [facility] No Information 2023 Alexandru Bravo. [address], [place], [id number], [place]. tel:[phone] Family History Family Member Type Diagnosis Age [...]
--- NOTE | ~2025-09-17 | US_ITS ---
CLINICAL HISTORY: N17.9 - Acute kidney failure, unspecified US renal with Color Doppler Comparison: None Findings: Right kidney normal size and echotexture, 11.5 cm length. No hydronephrosis calculus or mass. Normal color flow. Complex cyst measuring 1.7 x 1.5 x 1.6 cm Left kidney normal size and echotexture, 10.6 cm length. No hydronephrosis calculus or mass. Normal color flow. Lower pole simple cyst measuring 3.2 x 2.8 x 2.6 cm Impression: 1. Kidneys normal-size and position. Mild cortical thinning. Simple cyst left kidney. Probable cyst with debris right kidney can be correlated with contrast-enhanced CT or MRI. This document has been electronically signed by: Bruce Adams MD on 09/17/2025 12:54:21
--- OUTSIDE RECORDS SUMMARY | 2025-09-17 10:08 | XMS_ITS | Clinical Summary ---
Author Organization [facility] Address [address] [address] Phone Care Team Providers Care Assembly Loader Name Role Phone Unavailable Primary Care Provider [...] [place] [id number] UHC Medicare [place]HC Medicare Medicaid [place]
--- OUTSIDE RECORDS SUMMARY | 2025-09-17 10:08 | XMS_ITS | Clinical Summary ---
Author Organization [facility] Address [address] [place] [address] Phone Care Team Providers Care Rn Review Name Role Phone Cassandra Moses Primary Care [...] Description 08/26/2025 12:30 PM EDT Ancillary Procedure [facility] [address] [place] [address] Heart failure ([facility] V24[facility] V28) from Last 3 Months Medical History Medical History Date Comments Diabetes mellitus ([facility] V24, [facility] V28) Social History Tobacco Use Types [...] Procedure Name Priority Date/Time Associated Diagnosis Comments TRANSTHORACIC ECHOCARDIOGRAM (TTE) COMPLETE W/ CONTRAST Routine 08/26/2025 2:06 PM EDT Heart failure (CMS/HCC V24, CMS/HCC V28) BASIC METABOLIC PANEL Timed 11/16/2024 3:55 AM EST LIPID PANEL WITH REFLEX TO DIRECT LDL Routine 11/16/2024 3:55 AM EST HEMOGLOBIN A1C Add-On 11/15/2024 1:54 PM EST from Last 3 Months or Most Recently Relevant to Health Maintenance Results * (ABNORMAL) TRANSTHORACIC ECHOCARDIOGRAM (TTE) COMPLETE W/ CONTRAST (08/26/2025 2:06 PM EDT) Left Atrium Minor [place] 5.4 cm CV PACS Left Atrium Major [place] 5.3 cm CV PACS LA Area Sys (A2C) 20 cm2 CV PACS LA Area Sys (A4C) 17 cm2 CV PACS LA Volume (BP) 51 mL CV PACS RA Area 12.5 cm2 CV PACS RA 2D Volume 27 mL CV PACS AV Mean Gradient 2 mmHg CV PACS Ao VTI 21.5 cm CV PACS AV Peak Jaya 1.2 m/s CV PACS AV Peak Gradient 5 mmHg CV PACS AV Area Continuity Equation 1.7 cm2 CV PACS AV Area Peak Velocity 1.9 cm2 CV PACS Aortic Sinus Valsalva 3.4 cm CV PACS Ascending Aorta 3.5 cm CV PACS IVSD 0.8 0.6 - 1.0 cm CV PACS LVIDD 6.1(A) 4.2 - 5.8 cm CV PACS LVIDS 4.9(A) 2.5 - 4.0 cm CV PACS LVOT Diameter 1.9 cm CV PACS LVOT Mean Jaya 0.5 m/s CV PACS LVOT Mean Grad 1 mmHg CV PACS LVOT Peak VTI 12.6 cm CV PACS LVOT Peak Jaya 0.8 m/s CV PACS LVOT Peak Gradient 2 mmHg CV PACS LVPWD 1.0 0.6 - 1.0 cm CV PACS MV E' Tissue Velocity Lateral 5 cm/s CV PACS MV E' Tissue Velocity Septal 5 cm/s CV PACS LVOT Area 2.8 cm2 CV PACS LVOT Stroke Volume 36 mL CV PACS MV Mean Gradient 1 mmHg CV PACS MV VTI 19.4 cm CV PACS Mitral Valve Max Velocity 1.2 m/s CV PACS MV Peak Gradient 6 mmHg CV PACS MV Area Continuity Equation 1.8 cm2 CV PACS PV Acceleration Time 113 ms CV PACS PV Acceleration Time 88 ms CV PACS PV Acceleration Time 101 ms CV PACS RV Diastolic Basal Dimension 3.5 2.5 - 4.1 cm CV PACS RV S' 12 cm/s CV PACS TAPSE 19 mm CV PACS TR Peak Velocity 2.10 m/s CV PACS TR Peak Gradient 17 mmHg CV PACS Relative Wall Thickness ratio 0.32 0.24 - 0.42 CV PACS LVOT:AV VTI Index 0.59 CV PACS FS 20 % CV PACS LV Mass 2D 215(A) 96 - 200 g CV PACS MV VTI:LVOT VTI ratio 1.5 CV PACS LVOT flow 142 mL/s CV PACS AV Velocity Ratio 0.66 CV PACS BSA 2.33 m2 CV PACS LA Volume Index (BP) 22 mL/m2 CV PACS LVIDD Index 2.68 cm/m2 CV PACS LVIDS Index 2.15 cm/m2 CV PACS LV Mass Index 2D 97 50 - 102 g/m2 CV PACS LVOT Stroke Index 0 mL/m2 CV PACS RA 2D Volume Index 12(A) 18 - 32 mL/m2 CV PACS SUSAN Index (VTI) 0.73 cm2/m2 CV PACS SUSAN Index (Pk Jaya) 0.83 cm2/m2 CV PACS Ascending Aorta Index 1.54 cm/m2 CV PACS RV Free Wall Peak S' 12 cm/s CV PACS RA Major [place] 4.8 cm CV PACS RA Major [place] Index 2.1 2.1 - 2.7 cm/m2 CV PACS AV Area 2D 1.9 cm2 CV PACS SUASN Index (2D) 0.83 cm2/m2 CV PACS AV Area Index 0.8 CV PACS Right Ventricular Peak Systolic Pressure 21 mmHg CV PACS Est. RA Pressure 3 mmHg CV PACS Ejection Fraction (BP) 28 % CV PACS Ejection Fraction (A4C) 28 % CV PACS Ejection Fraction (A2C) 29 % CV PACS LV Diastolic Volume (BP) 218(A) 62 - 150 mL CV PACS LV Diastolic Volume Index (BP) 0(A) 34 - 74 mL/m2 CV PACS LV Systolic Volume (BP) 158(A) 21 - 61 mL CV PACS LV Systolic Volume Index (BP) 0(A) 11 - 31 mL/m2 CV PACS LV EDV (A4C) 206 mL CV PACS LV EDV Index (A4C) 90 mL/m2 CV PACS LV ESV (A4C) 149 mL CV PACS LV ESV Index (A4C) 65 mL/m2 CV PACS LV EDV (A2C) 231 mL CV PACS LV EDV Index (A2C) 101 mL/m2 CV PACS LV ESV (A2C) 163 mL CV PACS LV ESV Index (A2C) 71 mL/m2 CV PACS LA Volume (A-L) 153 mL CV PACS LA Volume Index (A-L) 67 mL/m2 CV PACS LV EF MOD 2C 29 % CV PACS LV EF 4C A-L 27 % CV PACS LV EDV 4C A-L 210 mL CV PACS LV Length Sys (A4C) 7.6 cm CV PACS LV Length Jacobo (A4C) 8.5 cm CV PACS Left Ventricular Stroke Volume by 2-D Biplane-MOD 60 mL CV PACS Anatomical Region Laterality Modality Ultrasound Narrative 09/09/2025 4:21 PM EST Left ventricle cavity is mildly dilated. There is normal left ventricular wall thickness. There is severe, global LV systolic dysfunction. Left ventricular systolic function is severely decreased with an ejection fraction of 25-30%. Calculated ejection fraction by Tinsley's biplane method is 28%. Right ventricle cavity is normal. Right ventricular systolic function is normal. There is no hemodynamically significant valve disease. There is normal pulmonary artery systolic pressure. There are no priors in our system for comparison. Spoke with THAD Yanes [facility]. I asked her to leave a message with the patient's PCP, LUIS MIGUEL Long regarding the patient's abnormal echo. I gave her my contact information for the PCP to call me back. Left Ventricle Left ventricle cavity is mildly dilated. Wall thickness is normal. Systolic function is severely decreased with an ejection fraction of 25-30%. Severe global LV hypokinesis is present. There is a likely grade 1 diastolic dysfunction consistent with normal left atrial pressure but I cannot say for certain as true pulse-wave Doppler at the mitral valve leaflet trips was not performed. Right Ventricle Right ventricle cavity appears normal. Systolic function is normal. Left Atrium Left atrium cavity size is normal. Right Atrium Right atrium cavity is normal. IVC/SVC Inferior vena cava structure is normal. RA pressures is estimated to be 3 mmHg (IVC diameter <21 mm and decreases >50% during inspiration). Mitral Valve The leaflets are mildly thickened. There is mild annular calcification. There is mild regurgitation. There is no evidence of mitral valve stenosis. Tricuspid Valve Tricuspid valve structure is normal. There is trace regurgitation. There is no evidence of tricuspid valve stenosis. The right ventricular systolic pressure is normal. Estimated RA pressure is 3 mmHg. The RVSP is estimated at 21 mmHg. Aortic Valve The aortic valve is trileaflet. The leaflets are mildly thickened. There is no significant regurgitation. There is no evidence of aortic valve stenosis. Pulmonic Valve Visualized portions of the pulmonic valve appear normal. No significant pulmonic valve regurgitation. There is no evidence of pulmonic valve stenosis. Ascending Aorta The aorta appears normal in size. Pericardium Pericardium appears normal. There is no pericardial effusion. Study Details Overall the study quality was technically difficult. Definity contrast was given to enhance imaging. Study was difficult due to: poor endocardial visualization. Wall Scoring Baseline Score Index: 2.00 The left ventricular wall motion is globally hypokinetic. Arturo Conn NP CV ECHO PROCEDURES Final Result * (ABNORMAL) Lipid panel with reflex to direct LDL (11/16/2024 3:55 AM EST) Cholesterol 142 0 - 200 mg/dL LAB CHEMISTRY METHOD 11/16/2024 4:40 AM EST [facility] Triglycerides 189(H) 0 - 150 mg/dL LAB CHEMISTRY METHOD 11/16/2024 4:40 AM EST [facility] HDL 35(L) >=40 mg/dL LAB CHEMISTRY METHOD 11/16/2024 4:40 AM EST [facility] LDL Calculated 69 0 - 100 mg/dL LAB CHEMISTRY METHOD 11/16/2024 4:40 AM EST [facility] VLDL Cholesterol Rad 37.8 mg/dL LAB CHEMISTRY METHOD 11/16/2024 4:40 AM [facility] Non HDL Chol. (LDL+VLDL) 107 <145 mg/dL LAB CHEMISTRY METHOD 11/16/2024 4:40 AM [facility] Chol/HDL Ratio 4.1 0.0 - 4.4 LAB CHEMISTRY METHOD 11/16/2024 4:40 AM [facility] Blood Venous blood specimen / Unknown Venipuncture / Unknown 11/16/2024 3:55 AM EST 11/16/2024 3:59 AM EST Nan BOLANOS LAB BLOOD ORDERABLES Fi nal Result [facility] [address] [place] [address], [place] [phone] * (ABNORMAL) Basic metabolic panel (11/16/2024 3:55 AM EST) Sodium 138 133 - 145 mmol/L LAB CHEMISTRY METHOD 11/16/2024 4:39 AM [facility] Potassium 3.7 3.5 - 5.5 mmol/L LAB CHEMISTRY METHOD 11/16/2024 4:39 AM [facility] Chloride 107 96 - 110 mmol/L LAB CHEMISTRY METHOD 11/16/2024 4:39 AM [facility] CO2 24 21 - 32 mmol/L LAB CHEMISTRY METHOD 11/16/2024 4:39 AM [facility] Anion Gap 7 3 - 11 LAB CHEMISTRY METHOD 11/16/2024 4:39 AM [facility] Glucose 157(H) 70 - 100 mg/dL LAB CHEMISTRY METHOD 11/16/2024 4:39 AM [facility] BUN 23 5 - 25 mg/dL LAB CHEMISTRY METHOD 11/16/2024 4:39 AM EST [facility] Creatinine 1.58(H) 0.70 - 1.30 mg/dL LAB CHEMISTRY METHOD 11/16/2024 4:39 AM [facility] eGFR 49(L) >=60 mL/min/1. 73m2 LAB CHEMISTRY METHOD 11/16/2024 4:39 AM [facility] Comment:Calculation based on the Chronic Kidney Disease Epidemiology Collaboration (CKD-EPI) equation refit without adjustment for race. BUN/Creatinine Ratio 14.6 LAB CHEMISTRY METHOD 11/16/2024 4:39 AM [facility] Calcium 8.2(L) 8.5 - 10.5 mg/dL LAB CHEMISTRY METHOD 11/16/2024 4:39 AM [facility] Blood Venous blood specimen / Unknown Venipuncture / Unknown 11/16/2024 3:55 AM EST 11/16/2024 3:59 AM EST us Antonio Doss MD LAB BLOOD ORDERABLES Final Res ult [facility] [address] [place] [address], * (ABNORMAL) Hemoglobin A1c (11/15/2024 1:54 PM EST) Hemoglobin A1C 13.5(H) <6.5 % LAB CHEMISTRY METHOD 11/16/2024 1:32 PM EST [facility] Mean Bld Glu Estim. 341 mg/dL LAB CHEMISTRY METHOD 11/16/2024 1:32 PM EST [facility] Blood Venous blood specimen / Unknown Venipuncture / Unknown 11/15/2024 1:54 PM EST 11/15/2024 2:08 PM EST us Nan BOLANOS LAB BLOOD ORDERABLES Fi nal Result [facility] [address] [place] [address], from Last 3 Months or Most Recently Relevant to Health Maintenance Insurance [facility] Member Subscriber Plan / Payer (Ef fective 2025-Present) Name:Govind BoYanick Relation to Subscriber:Self Name:Yanick Arita Payer ID:[id number] Group ID:[id number] Type:Not on file Address: [place] [address] [address] [phone] Advance Directives * Full Code - Default [...] currently active code status orders. Care Teams Rn Review Relationship Specialty Start Date End Date Cassandra Moses PA [address] [place] [address] PCP - General 07/12/22
== END 2025-09-17 09:34 | disposition home or self-care (01) ==
LOC: HO.US 09:33
PROVIDERS: PCP Physician Assistant; Visit Provider Internal Medicine Hypertension Specialist
DX: N17.9 Acute kidney failure, unspecified (principal)
CPT/HCPCS: 76775

== ENCOUNTER → 2025-09-17 09:35 | Outpatient (BNV) | payer OTHER, SELFPAY | PROVIDERS: PCP Physician Assistant; Visit Provider Radiology Diagnostic Radiology | DX: N17.9 Acute kidney failure, unspecified (principal); N28.1 Cyst of kidney, acquired | CPT/HCPCS: 76775 ==

== ENCOUNTER 2025-10-03 14:03 | Inpatient (IN) | payer OTHER, SELFPAY ==
--- OUTSIDE RECORDS SUMMARY | 2024-04-02 05:49 | XMS_ITS | Continuity of Care Document ---
Author Organization [facility] Address [address] [address] Phone Care Team Providers Care Ore Charger Name Role Phone Shelly Horvath OT Unavailable Unavailable Advance Directives Directive Yes / No Effective Date File Name No Information Encounters Encounter Description Practice Location Reason(s) For Visit Diagnoses Date Provider [facility], [address] [address], [place], [place], [id number], [place] tel:[phone] [facility] No Information 2023 Alexandru Bravo. [address] [place], [id number], [place]. tel:[phone] Family History Family Member Type Diagnosis Age At Onset No Information Payers Payer name Insurance type Covered alliance party ID Authoriza tion(s) No Information Social History Type Description Quantity Date Captured Comments Sex Male Smoking Status No Information Chief Complaint And Reason For Visit No Information History Of Present Illness Encounter Date Complaint History Of Prese nt Illness No Information Instructions Date Instruction Additional Infor mation No Information Assessments Type Assessment Date No Information
--- NOTE | ~2025-10-03 | XR_ITS ---
CLINICAL HISTORY: cough 2 view chest x-ray Comparison: Chest x-ray 05/19/2025 Findings: Mild patchy right basilar density. Lungs are otherwise clear. No pleural effusion. No pneumothorax. Normal heart size and central pulmonary vascularity. No acute soft tissue or osseous abnormality. Impression: 1. Suggestion of developing right basilar infiltrate. This document has been electronically signed by: Aleja Rodriguez MD on 10/03/2025 15:11:20
[2025-10-03 14:13] VITALS: BP 161/84; PULSE 99; RESP 18; TEMP 36.6; O2SAT 95; BMI 31.2
--- NOTE | 2025-10-03 14:17 | ECG_ITS ---
Test Reason : CHEST PAIN Blood Pressure : */* mmHG Vent. Rate : 87 BPM Atrial Rate : 87 BPM P-R Int : 166 ms QRS Dur : 120 ms QT Int : 410 ms P-R-T Axes : 70 -37 96 degrees QTcB Int : 493 ms Normal sinus rhythm Left axis deviation Left ventricular hypertrophy with QRS widening and repolarization abnormality ( Sokolow-Low , Sameer product ) Abnormal ECG No previous ECGs available Referred By: Generic ED Physician Electronically Signed By: TATI COONEY MD
[2025-10-03 14:46] LABS: Hematocrit 42.2 % (42.0-52.0); Hemoglobin 13.5 g/dl (14.0-18.0); Imm Gran Abs Auto 0.01 X10*3/uL (0.00-0.03); Imm Gran Pct Auto 0.1 % (0.0-0.4); Lymphocytes Absolute Auto 1.8 X10*3/uL (1.2-4.9); MANUAL DIFF FLAG NO; Mean Corpuscular HGB Conc 32.0 g/dl (31.0-36.0); Mean Corpuscular Hemoglobin 27.8 pg (27.0-33.0); Mean Corpuscular Volume 87.0 fL (80.0-98.0); NRBC Abs Auto 0.000 X10*3/uL (0.0-0.012); NRBC Pct Auto 0.0 /100WBC (0.0-0.2); Platelet Count 344 X10*3/uL (160-400); Red Blood Count 4.85 X10*6/uL (4.60-5.80); White Blood Count 8.3 X10*3/uL (4.8-10.8)
[2025-10-03 15:14] LABS: Anion Gap 16 (12-20); Carbon Dioxide 23 mmol/L (22-29); Chloride 98 mmol/L (96-108); Potassium 4.6 mmol/L (3.3-5.1); Sodium 132 mmol/L (135-145)
[2025-10-03 15:15] LABS: Blood Urea Nitrogen 20 mg/dL (9-16); Calcium 9.5 mg/dL (8.4-10.2); Creatinine Clr Calc Pharmacy 58.9; Estimated Glomerular Filt Rate 42
[2025-10-03 15:23] VITALS: PULSE 90; RESP 23; O2SAT 95
[2025-10-03 15:26] LABS: Resp Syncy Virus RNA Qual PCR NEGATIVE (Negative); SARS COV2 PCR INHOUSE NEGATIVE (Negative)
[2025-10-03] MEDS: Albuterol Sulfate 2.5 MG, Albuterol/Iprat 2.5/0.5MG 3 ML 3 ML INHALE (15:31)
[2025-10-03 15:34] LABS: Alanine Aminotransferase 18 U/L (0-40); Albumin Level 3.9 g/dL (3.5-5.0); Alkaline Phosphatase 140 U/L (39-117); Aspartate Amino Transferase 23 U/L (5-37); Lipase 20 U/L (8-78); Total Protein 7.7 g/dL (6.5-8.0)
[2025-10-03 15:39] LABS: Venous Blood Gas Refer to POC result
[2025-10-03 15:40] LABS: VBG HCO3 25 mmol/L (22-26); VBG O2 % Saturation 91.0 %
--- OUTSIDE RECORDS SUMMARY | 2025-10-03 15:53 | XMS_ITS | Clinical Summary ---
Author Organization [facility] Address [address] [address] Phone Care Team Providers Care Tobacco Prizer Name Role Phone Unavailable Primary Care Provider [...] to complete [place] [id number] UHC Medicare [place]
--- OUTSIDE RECORDS SUMMARY | 2025-10-03 15:53 | XMS_ITS | Clinical Summary ---
Author Organization [facility] Address [address] [place] [address] Phone Care Team Providers Care Vacuum Filter Operator Name Role Phone Cassandra Moses Primary Care [...] Description 08/26/2025 12:30 PM EDT Ancillary Procedure [facility] [address] [place] [address] Heart failure ([facility] V24, [facility] V28) from Last 3 Months Medical History Medical History Date Comments Diabetes mellitus ([facility] [place]24, [facility] V28) Social History Tobacco Use Types Packs/Day [...] Depression Screening 10/28/2024 COVID-19 Vaccine (3 - 2024- season) 2025 01/21/2023, 02/15/2022 Influenza Vaccine (#1) [...] (08/26/2025 2:06 PM EDT) Left Atrium Minor [place] 5.4 cm CV PACS Left Atrium Major [place] 5.3 cm CV PACS LA Area Sys [...] S' 12 cm/s CV PACS RA Major [place] 4.8 cm CV PACS RA Major [place] Index 2.1 2.1 - 2.7 cm/m2 CV PACS AV Area 2D 1.9 cm2 CV PACS SUSAN Index (2D) 0.83 cm2/m2 CV PACS AV [...] system for comparison. Spoke with THAD Yanes [facility]. I asked her to leave a message [...] mg/dL LAB CHEMISTRY METHOD 11/16/2024 4:[address] [facility] Triglycerides 189(H) 0 - 150 mg/dL LAB CHEMISTRY METHOD 11/16/2024 4:40 AM EST [facility] HDL 35(L) >=40 mg/dL LAB CHEMISTRY METHOD 11/16/2024 4:40 AM EST [facility] LDL Calculated 69 0 - 100 mg/dL LAB CHEMISTRY METHOD 11/16/2024 4:[address] [facility] VLDL Cholesterol Rad 37.8 mg/dL LAB CHEMISTRY METHOD 11/16/2024 4:[address] [facility] Non HDL Chol. (LDL+VLDL) 107 <145 mg/dL LAB CHEMISTRY METHOD 11/16/2024 4:[address] [facility] Chol/HDL Ratio 4.1 0.0 - 4.4 LAB CHEMISTRY METHOD 11/16/2024 4:[address] [facility] Blood Venous blood specimen / Unknown Venipuncture / Unknown 11/16/2024 3:55 AM EST 11/16/2024 3:59 AM EST Nan BOLANOS LAB BLOOD ORDERABLES Fi nal Result [facility] [address] [place] [address], * (ABNORMAL) Basic metabolic panel (11/16/2024 3:55 AM EST) Sodium 138 133 - 145 mmol/L LAB CHEMISTRY METHOD 11/16/2024 4:[address] [facility] Potassium 3.7 3.5 - 5.5 mmol/L LAB CHEMISTRY METHOD 11/16/2024 4:[address] [facility] Chloride 107 96 - 110 mmol/L LAB CHEMISTRY METHOD 11/16/2024 4:[address] [facility] CO2 24 21 - 32 mmol/L LAB CHEMISTRY METHOD 11/16/2024 4:[address] [facility] Anion Gap 7 3 - 11 LAB CHEMISTRY METHOD 11/16/2024 4:[address] [facility] Glucose 157(H) 70 - 100 mg/dL LAB CHEMISTRY METHOD 11/16/2024 4:[address] [facility] BUN 23 5 - 25 mg/dL LAB CHEMISTRY METHOD 11/16/2024 4:[address] [facility] Creatinine 1.58(H) 0.70 - 1.30 mg/dL LAB CHEMISTRY METHOD 11/16/2024 4:[address] [facility] eGFR 49(L) >=60 mL/min/1. 73m2 LAB CHEMISTRY METHOD 11/16/2024 4:39 AM EST [facility] Comment:Calculation based on the Chronic Kidney Disease Epidemiology Collaboration (CKD-EPI) equation refit without adjustment for race. BUN/Creatinine Ratio 14.6 LAB CHEMISTRY METHOD 11/16/2024 4:39 AM EST [facility] Calcium 8.2(L) 8.5 - 10.5 mg/dL LAB CHEMISTRY METHOD 11/16/2024 4:39 AM EST [facility] Blood Venous blood specimen / Unknown Venipuncture / Unknown 11/16/2024 3:55 AM EST 11/16/2024 3:59 AM EST us Antonio Doss MD LAB BLOOD ORDERABLES Final Res ult Performing Organization Address City/[facility]/ZIP Co de Phone Number [facility] [address] [place] [address], [place] [phone] * (ABNORMAL) Hemoglobin A1c (11/15/2024 1:54 PM EST) Hemoglobin A1C 13.5(H) <6.5 % LAB CHEMISTRY METHOD 11/16/2024 1:32 PM EST [facility] Mean Bld Glu Estim. 341 mg/dL LAB CHEMISTRY METHOD 11/16/2024 1:32 PM EST [facility] Blood Venous blood specimen / Unknown Venipuncture / Unknown 11/15/2024 1:54 PM EST 11/15/2024 2:08 PM EST us Nan BOLANOS LAB BLOOD ORDERABLES Fi nal Result [facility] [address] [place] [address], [place] [phone] from Last 3 Months or Most Recently Relevant to Health Maintenance [place] [address] [address] [address] [employer] Member Subscriber Plan / Payer (Ef fective 2025-Present) Name:Yanick Arita Relation to Subscriber:Self Name:Yanick Arita Payer ID:[id number] Group ID:[id number] Type:Not on file Address: [place] [address] [address] [phone] Advance Directives * Full Code - Default [...] currently active code status orders. Care Teams Vacuum Filter Operator Relationship Specialty Start Date End Date Cassandra Moses PA [address] [place] [address] PCP - General 07/12/22
[2025-10-03 16:13] LABS: Troponin-I High Sensitivity 11.1 ng/L (<3.5-35.0)
[2025-10-03 17:14] VITALS: PULSE 91; RESP 17; O2SAT 94
[2025-10-03] MEDS: Albuterol Sulfate (0.083%) 2.5 MG/3 ML VIAL.NEB INHALE (17:18)
[2025-10-03 17:58] LABS: Appearance Urine Clear; Glucose Urine UA >=1000 mg/dL (Negative); PH 6.0 (5.0-9.0); Specific Gravity - Urine >= 1.030 (1.005-1.025); UMIC TRIGGER UACC YES
[2025-10-03 18:00] VITALS: PULSE 89
[2025-10-03 18:13] LABS: UACC Culture Trigger YES
--- NOTE | 2025-10-03 19:59 | HO.NURTONUR ---
Per clinical auditor pt here w/ c/o cough and congestion x 2 days assoc w/ pacheco. Today cxr shows pna, and urine +uti. Pt tx'd w/ neb tx's and abx. Pt also noted to have elevated bgl and was tx'd w/ iv insulin. Pt is A&Ox4, french speaking only. Independent w/ adl's
--- NOTE | 2025-10-03 20:10 | ED.URI ---
HPI - URI/Sore Throat General Chief Complaint: Upper Respiratory Symptoms Stated Complaint: Asthma Diff Breathing Time Seen by Provider: 10/03/25 16:17 History of Present Illness HPI Narrative: Patient is 65-year-old male with a history of diabetes. Presents today with coughing congestion upper respiratory symptoms ongoing for the last 2 days. Generalized malaise weakness. Patient from home. Has a history of high cholesterol. History of coronary artery disease. Long history of diabetes. Baseline on furosemide. Baseline on Trulicity. Related Data Home Medications ?Medication ?Instructions ?Recorded ?Confirmed carvedilol 12.5 mg tablet 12.5 mg PO BID 03/29/25 08/31/25 insulin degludec 100 unit/mL (3 32 unit subcut DAILY 03/29/25 08/31/25 mL) subcutaneous pen (Tresiba FlexTouch U-100 insulin) levothyroxine 50 mcg capsule 50 mcg PO DAILY@0600 03/29/25 08/31/25 pantoprazole 40 mg tablet,delayed 40 mg PO DAILY@0603/29/25 08/31/25 release sacubitril 97 mg-valsartan 103 mg 1 tab PO BID 03/29/25 08/31/25 tablet (Entresto) tamsulosin 0.4 mg capsule 0.4 mg PO DAILY 03/29/25 08/31/25 dulaglutide 1.5 mg/0.5 mL 1.5 mg subcut TU 05/19/25 08/31/25 subcutaneous pen injector (Trulicity) insulin lispro 100 unit/mL See Protocol subcut TIDAC 05/19/25 08/31/25 subcutaneous pen (Humalog KwikPen (U-100) Insulin) albuterol sulfate 90 mcg/actuation 2 puff inhalation Q4H PRN 05/20/25 08/31/25 aerosol inhaler Shortness Of Breath Or Wheezing aripiprazole 2 mg tablet 2 mg PO DAILY 05/20/25 08/31/25 atorvastatin 80 mg tablet 80 mg PO BEDTIME 05/20/25 08/31/25 Held on 05/26/25. Instructions: Resume on 07/03/25. Hold while on daptomycin, per infectious disease gabapentin 100 mg capsule 100 mg PO TID 05/20/25 08/31/25 daptomycin 500 mg intravenous 500 mg IV DAILY 06/11/25 08/31/25 solution Previous Rx's ?Medication ?Instructions ?Recorded torsemide 40 mg tablet 40 mg PO DAILY #30 tabs 08/31/25 Allergies Allergy/AdvReac Type Severity Reaction Status Date / Time No Known Drug Allergies Allergy Unknown Verified 10/03/25 14:16 Review of Systems Review of Systems: Positive coughing upper respiratory symptoms positive generalized malaise Yes all other systems are reviewed and are negative PENDING SALE TO [facility] Past Medical History Attestation statement: The following information was validated with the patient. 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 Oriented X3. No acute distress. Eyes: Pupils equal, round and reactive to light. ENT: Pharynx normal. Neck: Normal inspection. Neck supple. No lymph nodes noted. No crepitus CVS: Normal heart rate and rhythm. Pulses normal. Normal S1 and S2 Respiratory: diminished breath sounds bilaterally Abdomen: Soft and nontender. No rigidity. No distention. good BS x4 Skin: Skin warm and dry. Normal skin color. Normal skin turgor. Extremities: No lower extremity edema. Neurovascular intact to all extremities. No Lacerations. No Rash Neuro: Oriented X 3. No motor deficit. No sensory deficit. Moving all extermities. No slurred speech Vital Signs: Vital Signs: Last Vital Signs Temp 98 F 10/03/25 14:13 Pulse 91 10/03/25 17:14 Resp 17 10/03/25 17:14 BP 161/84 H 10/03/25 14:13 Pulse Ox 95 10/03/25 14:13 O2 Del Method Room Air 10/03/25 14:13 BMI result Body Mass Index 31.2 Medications Administered Generic Name Dose Route Start Last Admin Trade Name Kenneth PRN Reason Stop Dose Admin Azithromycin 500 mg/ Sodium 250 mls @ 125 mls/hr 10/03/25 18:34 10/03/25 19:53 Chloride IV 10/03/25 20:33 125 mls/hr ONCE ONE Administration Discontinued Medications Generic Name Dose Route Start Last Admin Trade Name Kenneth PRN Reason Stop Dose Admin Albuterol Sulfate 2.5 mg 10/03/25 17:14 10/03/25 17:18 Albuterol Sulfate (0.083%) 2.5 Mg/3 Ml Vial.Neb INHALE 10/03/25 17:15 2.5 mg ONCE ONE Administration Albuterol Sulfate 2.5 mg/ 0 mg 10/03/25 15:23 10/03/25 15:31 Albuterol/Ipratropium 3 ml INHALE 10/03/25 15:24 5 dose ONCE ONE Administration Sodium Chloride 1,000 mls @ 999 mls/hr 10/03/25 15:30 10/03/25 18:29 Ns IV 10/03/25 16:30 Infused .Q1H1M ESTHER Infusion Sodium Chloride 1,000 mls @ 999 mls/hr 10/03/25 18:45 10/03/25 19:36 Ns IV 10/03/25 19:45 999 mls/hr .Q1H1M ESTHER Administration Ceftriaxone Sodium 1 gm/ 50 mls @ 100 mls/hr 10/03/25 18:34 10/03/25 19:35 Sodium Chloride IV 10/03/25 19:03 100 mls/hr ONCE ONE Administration Insulin Human Regular 5 unit 10/03/25 18:33 10/03/25 19:33 Insulin Regular, Human 100 Unit/Ml 10 Ml Vial IVPUSH 10/03/25 18:34 5 unit ONCE ONE Administration Medical Decision Making Medical Decision Making MDM Narrative: positive coughing upper respiratory symptoms generalized malaise. Patient's white count was actually normal. No significant left shift hemoglobin is 13. Positive generalized malaise weakness. Patient's sugar is way out of control with glucose in the 600s range. Luckily patient's VBG showed no evidence for diabetic ketoacidosis. PH was normal. PCO2 of 43. This is a normal blood gas. Patient's electrolytes showed an elevated BUN and creatinine of 20 and 1.65. This is chronic. Not acute. Patient's liver function tests is baseline. Troponin is normal. Beta hydroxybutyrate was negative. Lipase is 20 no evidence for pancreatitis. Urine showed a question UTI. Chest x-ray showed a pneumonia at the right base. Patient's COVID flu RSV were all negative. Cultures obtained antibiotic was started. Patient will require admission. Although his O2 sat is good at 95 patient is very weak sugar is very high will require further monitoring. Differential Diagnosis Differential Diagnoses: The differential diagnosis associated with the presentation includes Pneumonia, PE, COPD, hyperglycemia, DKA Admission/Observation Consideration of admission/observation: Escalation of care including admission/observation considered Consult Healthcare Provider Management of the patient was discussed with: Hospitalist Lab Data MDM Lab Attestation statement: I reviewed the patient's lab results. 10/03/25 14:37 10/03/25 14:37 Labs: Lab Results 10/03/25 10/03/25 10/03/25 Range/Units 14:37 15:36 17:49 WBC 8.3 (4.8-10.8) X10*3/uL RBC 4.85 (4.60-5.80) X10*6/uL Hgb 13.5 L (14.0-18.0) g/dl Hct 42.2 (42.0-52.0) % MCV 87.0 (80.0-98.0) fL MCH 27.8 (27.0-33.0) pg MCHC 32.0 (31.0-36.0) g/dl RDW 14.2 (11.0-16.0) % Plt Count 344 (160-400) X10*3/uL MPV 10.1 (9.4-12.4) fL Immature Gran % (Auto) 0.1 (0.0-0.4) % Neut % (Auto) 59.0 (45-73) % Lymph % (Auto) 22.2 (20-40) % [place] % (Auto) 6.3 (2-11) % Eos % (Auto) 11.8 H (0-4) % Baso % (Auto) 0.6 (0-2) % Lymph # (Auto) 1.8 (1.2-4.9) X10*3/uL [place] # (Auto) 0.5 (0.1-1.2) X10*3/uL Eos # (Auto) 1.0 H (0.0-0.4) X10*3/uL Baso # (Auto) 0.1 (0.0-0.2) X10*3/uL Abs Immat Gran (auto) 0.01 (0.00-0.03) X10*3/uL Absolute Neuts (auto) 4.9 (2.0-8.3) x10*3/uL Absolute Nucleated RBC 0.000 (0.0-0.012) X10*3/uL Nucleated RBC % (auto) 0.0 (0.0-0.2) /100WBC VBG pH 7.37 (7.32-7.43) VBG pCO2 43 mmHg VBG pO2 73 mmHg VBG HCO3 25 (22-26) mmol/L VBG O2 Saturation 91.0 % VBG Base Excess -0.3 mmol/L Sodium 132 L (135-145) mmol/L Potassium 4.6 (3.3-5.1) mmol/L Chloride 98 (96-108) mmol/L Carbon Dioxide 23 (22-29) mmol/L Anion Gap 16 (12-20) BUN 20 H (9-16) mg/dL Creatinine 1.65 H (0.5-1.4) mg/dL Estim Creat Clear Calc 58.9 Estimated GFR 42 POC Glucose (60-115) mg/dL Random Glucose 611 H* (60-115) mg/dL Lactic Acid (0.5-2.0) mmol/L Calcium 9.5 (8.4-10.2) mg/dL Total Bilirubin 0.2 (0.0-1.0) mg/dL Direct Bilirubin < 0.2 (0.0-0.5) mg/dL AST 23 (5-37) U/L ALT 18 (0-40) U/L Alkaline Phosphatase 140 H (39-117) U/L Troponin I High Sens 11.1 (<3.5-35.0) ng/L Total Protein 7.7 (6.5-8.0) g/dL Albumin 3.9 (3.5-5.0) g/dL Lipase 20 (8-78) U/L Beta-Hydroxybutyrate 0.10 (0.02-0.27) mmol/L Urine Color Yellow Urine Appearance Clear Urine pH 6.0 (5.0-9.0) Ur Specific [place] >= 1.030 H (1.005-1.025) Urine Protein Negative (Neg-Trace) mg/dL Urine Glucose (UA) >=1000 H (Negative) mg/dL Urine Ketones Negative (Negative) mg/dL Urine Blood Negative (Negative) Urine Nitrite Positive H (Negative) Ur Leukocyte Esterase Small (1+) H (Negative) Urine RBC 0-2 (0-2) /HPF Urine WBC 21-50 (0-5) /HPF Ur Squamous Epith Cells 0-2 (0-2) /HPF Urine Bacteria 4+ (None Seen) Hyaline Casts 0-2 (0-2) /LPF Influenza Type A (PCR) NEGATIVE (Negative) Influenza Type B (PCR) NEGATIVE (Negative) RSV RNA Qual (PCR) NEGATIVE (Negative) SARS-CoV-2 RNA (RT-PCR) NEGATIVE (Negative) 10/03/25 10/03/25 Range/Units 19:16 20:18 WBC (4.8-10.8) X10*3/uL RBC (4.60-5.80) X10*6/uL Hgb (14.0-18.0) g/dl Hct (42.0-52.0) % MCV (80.0-98.0) fL MCH (27.0-33.0) pg MCHC (31.0-36.0) g/dl RDW (11.0-16.0) % Plt Count (160-400) X10*3/uL MPV (9.4-12.4) fL Immature Gran % (Auto) (0.0-0.4) % Neut % (Auto) (45-73) % Lymph % (Auto) (20-40) % [place] % (Auto) (2-11) % Eos % (Auto) (0-4) % Baso % (Auto) (0-2) % Lymph # (Auto) (1.2-4.9) X10*3/uL [place] # (Auto) (0.1-1.2) X10*3/uL Eos # (Auto) (0.0-0.4) X10*3/uL Baso # (Auto) (0.0-0.2) X10*3/uL Abs Immat Gran (auto) (0.00-0.03) X10*3/uL Absolute Neuts (auto) (2.0-8.3) x10*3/uL Absolute Nucleated RBC (0.0-0.012) X10*3/uL Nucleated RBC % (auto) (0.0-0.2) /100WBC VBG pH (7.32-7.43) VBG pCO2 mmHg VBG pO2 mmHg VBG HCO3 (22-26) mmol/L VBG O2 Saturation % VBG Base Excess mmol/L Sodium (135-145) mmol/L Potassium (3.3-5.1) mmol/L Chloride (96-108) mmol/L Carbon Dioxide (22-29) mmol/L Anion Gap (12-20) BUN (9-16) mg/dL Creatinine (0.5-1.4) mg/dL Estim Creat Clear Calc Estimated GFR POC Glucose 433 H* (60-115) mg/dL Random Glucose (60-115) mg/dL Lactic Acid 1.8 (0.5-2.0) mmol/L Calcium (8.4-10.2) mg/dL Total Bilirubin (0.0-1.0) mg/dL Direct Bilirubin (0.0-0.5) mg/dL AST (5-37) U/L ALT (0-40) U/L Alkaline Phosphatase (39-117) U/L Troponin I High Sens (<3.5-35.0) ng/L Total Protein (6.5-8.0) g/dL Albumin (3.5-5.0) g/dL Lipase (8-78) U/L Beta-Hydroxybutyrate (0.02-0.27) mmol/L Urine Color Urine Appearance Urine pH (5.0-9.0) Ur Specific [place] (1.005-1.025) Urine Protein (Neg-Trace) mg/dL Urine Glucose (UA) (Negative) mg/dL Urine Ketones (Negative) mg/dL Urine Blood (Negative) Urine Nitrite (Negative) Ur Leukocyte Esterase (Negative) Urine RBC (0-2) /HPF Urine WBC (0-5) /HPF Ur Squamous Epith Cells (0-2) /HPF Urine Bacteria (None Seen) Hyaline Casts (0-2) /LPF Influenza Type A (PCR) (Negative) Influenza Type B (PCR) (Negative) RSV RNA Qual (PCR) (Negative) SARS-CoV-2 RNA (RT-PCR) (Negative) Independent Interpretation I performed an independent interpretation of an: EKG ( sinus heart rate is 80 KS QRS QTC within normal limits. There is LVH noted.) and Plain X-Ray ( positive right basilar infiltrate) Radiology Impression Discussion of test interpretation with radiology: I have reviewed the radiologist's reading. External Record Review External record reviewed: Inpatient record Chronic Conditions Patient?s care impacted by: Diabetes and Hypertension Social Determinants Patient?s care significantly limited by Social Determinants of Health including: Problems related to primary support group Critical Care Time Critical Care Time Critical Care Time: Yes Total Critical Care Time: 40 Attestation: I have personally provided 40 minutes of critical care time exclusive of time spent on separately billable procedures. Time includes review of lab data, radiology results, discussion with consultants, and monitoring for potential decompensation. Interventions were performed as documented above Discharge Plan Discharge Clinical Impression: Pneumonia, Acute hyperglycemia Patient Disposition: Admitted As Inpatient Print Language: Mauritanian
[2025-10-03 20:22] LABS: Glucose, Whole Blood 433 mg/dL (60-115)
[2025-10-03 20:31] VITALS: BP 148/80; PULSE 100; RESP 16; TEMP 36.4; O2SAT 98
--- NOTE | 2025-10-03 20:58 | PM.IMHP ---
History of Present Illness Date of Service: 10/03/25 Attending physician on admission: Mario Min Chief Complaint: Dyspnea Pt is a 65-year-old male with past medical history HFrEF S/P Cardiomems, hypothyroidism, IDDM II on Trulicity until 2 weeks ago, GERD, BPH, COPD/ asthma - nonsmoker exposed to second hand smoke not on home O2, HLD, HTN, CAD/ PCI X1 stent, osteomyelitis L big toe, Class I obesity, CKD 3a, presents to ED ambulatory with family with complaints of persistent cough and congestion X2 days with no recent travel or exposure to others with URI. Pt's blood glucose level 600 but no evidence of DKA. UA appears positive for UTI as well. Pt denies urinary tract symptoms. Pt also notes that he stopped the Trulicity 2 weeks ago due to constipation and has upcoming appt with campaign fundraiser on Oct 14. Pt reports that wound on Left big toes is fully healed. Work up in the ED included CXR suggesting R basilar infiltrate. No leukocytosis or anemia noted. Viral studies for COVID, flu and RSV all negative. UA noted for nitrites, +1 LE, WBC 21-50 and 4+ bacteria. VBG , 7.37, 43, 73, 25. LA 1.8. Na 132. BG now 433 after regular insulin administered in ED. DDIMER pending. Pt is not currently on oxygen. Patient has a prolonged QTC on EKG. Patient is started on ceftriaxone azithromycin in the ED and changed to ceftriaxone and doxycycline noting QTC on EKG. Blood cultures and urine culture pending. Review of Systems Review of Systems: Pt denies chest pain, abd pain, mild constipation, lower leg edema (chronic). Pt denies any [place], visual changes. pt states L big toe wound is healed. 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) Patient Tobacco Use Status: Never used Tobacco Smoked in Last 30 Days: No e-Cigarette/Vaping Use: Never Used Use of substances other than those prescribed or required for medical reasons: No Advance Directives: No Advance Directives Information Provided: Yes Do you have a plan to hurt others: No Plan Nutrition Risks: No Nutritional Risk service: No Ebola Risk: Travel/Contact With Anyone From Affected Area/s: No Has Patient Experienced Ebola Symptoms: No Meds Allergies Allergy/AdvReac Type Severity Reaction Status Date / Time No Known Drug Allergies Allergy Unknown Verified 10/03/25 14:16 Home Medications ?Medication ?Instructions ?Recorded ?Confirmed ?Last Taken ?Type carvedilol 12.5 mg tablet 12.5 mg PO BID 03/29/25 08/31/25 05/19/25 History insulin degludec 100 unit/mL (3 32 unit subcut DAILY 03/29/25 08/31/25 Unknown History mL) subcutaneous pen (Tresiba FlexTouch U-100 insulin) levothyroxine 50 mcg capsule 50 mcg PO DAILY@0600 03/29/25 08/31/25 05/19/25 History pantoprazole 40 mg tablet,delayed 40 mg PO DAILY@0630 03/29/25 08/31/25 05/19/25 History release sacubitril 97 mg-valsartan 103 mg 1 tab PO BID 03/29/25 08/31/25 Unknown History tablet (Entresto) tamsulosin 0.4 mg capsule 0.4 mg PO DAILY 03/29/25 08/31/25 05/19/25 History dulaglutide 1.5 mg/0.5 mL 1.5 mg subcut TU 05/19/25 08/31/25 05/04/25 History subcutaneous pen injector (Trulicity) insulin lispro 100 unit/mL See Protocol subcut TIDAC 05/19/25 08/31/25 Unknown History subcutaneous pen (Humalog KwikPen (U-100) Insulin) albuterol sulfate 90 mcg/actuation 2 puff inhalation Q4H PRN 05/20/25 08/31/25 Unknown History aerosol inhaler Shortness Of Breath Or Wheezing aripiprazole 2 mg tablet 2 mg PO DAILY 05/20/25 08/31/25 Unknown History atorvastatin 80 mg tablet 80 mg PO BEDTIME 05/20/25 08/31/25 Unknown History Held on 05/26/25. Instructions: Resume on 07/03/25. Hold while on daptomycin, per infectious disease gabapentin 100 mg capsule 100 mg PO TID 05/20/25 08/31/25 Unknown History daptomycin 500 mg intravenous 500 mg IV DAILY 06/11/25 08/31/25 Unknown History solution Physical Exam Vital Signs and Narrative: Vital Signs: Last Vital Signs Temp 97.6 F 10/03/25 20:31 Pulse 100 10/03/25 20:31 Resp 16 10/03/25 20:31 BP 148/80 H 10/03/25 20:31 Pulse Ox 98 10/03/25 20:31 O2 Del Method Room Air 10/03/25 20:31 BMI result Body Mass Index 31.2 Media Services Coordinator used Alert and orientated X3, able to give good history. Neuro: CN II-X11 intact, no deficits, visual acuity intact EYES: PERRLA, EOM intact, sclera nonicteric, conjunctiva pink ENT: hearing intact, no issues with swallowing, uvula midline, lips moist, nares patent no epistaxis Cardiac: S1 S2 RRR, no murmur, no JVD, moderate edema in Lower ext Pulmonary: lungs diminshed B Abdominal: BS active in all 4 quadrants, no guarding, tenderness, rebounding MSK: strength 5/5 upper and lower extremities : no CVA tenderness no bladder distension Extremities: moderate edema in lower extremities, PT and DP pulses palpable +2 Psych: mood stable, judgement and insight good Skin: no new rashes or lesions, L big toe is closed no wounds found on either foot Results Labs 10/03/25 14:37 10/03/25 14:37 Labs: Laboratory Results - last 24 hr 10/03/25 10/03/25 10/03/25 14:37 15:36 17:49 MCV 87.0 MCH 27.8 MCHC 32.0 RDW 14.2 Plt Count 344 MPV 10.1 Immature Gran % (Auto) 0.1 Neut % (Auto) 59.0 Lymph % (Auto) 22.2 Ness % (Auto) 6.3 Eos % (Auto) 11.8 H Baso % (Auto) 0.6 Lymph # (Auto) 1.8 Ness # (Auto) 0.5 Eos # (Auto) 1.0 H Baso # (Auto) 0.1 Abs Immat Gran (auto) 0.01 Absolute Neuts (auto) 4.9 Absolute Nucleated RBC 0.000 Nucleated RBC % (auto) 0.0 VBG pH 7.37 VBG pCO2 43 VBG pO2 73 VBG HCO3 25 VBG O2 Saturation 91.0 VBG Base Excess -0.3 Anion Gap 16 Estim Creat Clear Calc 58.9 Estimated GFR 42 POC Glucose Random Glucose 611 H* Lactic Acid Calcium 9.5 Total Bilirubin 0.2 Direct Bilirubin < 0.2 AST 23 ALT 18 Alkaline Phosphatase 140 H Troponin I High Sens 11.1 Total Protein 7.7 Albumin 3.9 Lipase 20 Beta-Hydroxybutyrate 0.10 Urine Color Yellow Urine Appearance Clear Urine pH 6.0 Ur Specific [place] >= 1.030 H Urine Protein Negative Urine Glucose (UA) >=1000 H Urine Ketones Negative Urine Blood Negative Urine Nitrite Positive H Ur Leukocyte Esterase Small (1+) H Urine RBC 0-2 Urine WBC 21-50 Ur Squamous Epith Cells 0-2 Urine Bacteria 4+ Hyaline Casts 0-2 Influenza Type A (PCR) NEGATIVE Influenza Type B (PCR) NEGATIVE RSV RNA Qual (PCR) NEGATIVE SARS-CoV-2 RNA (RT-PCR) NEGATIVE 10/03/25 10/03/25 19:16 20:18 MCV MCH MCHC RDW Plt Count MPV Immature Gran % (Auto) Neut % (Auto) Lymph % (Auto) Ness % (Auto) Eos % (Auto) Baso % (Auto) Lymph # (Auto) Ness # (Auto) Eos # (Auto) Baso # (Auto) Abs Immat Gran (auto) Absolute Neuts (auto) Absolute Nucleated RBC Nucleated RBC % (auto) VBG pH VBG pCO2 VBG pO2 VBG HCO3 VBG O2 Saturation VBG Base Excess Anion Gap Estim Creat Clear Calc Estimated GFR POC Glucose 433 H* Random Glucose Lactic Acid 1.8 Calcium Total Bilirubin Direct Bilirubin AST ALT Alkaline Phosphatase Troponin I High Sens Total Protein Albumin Lipase Beta-Hydroxybutyrate Urine Color Urine Appearance Urine pH Ur Specific [place] Urine Protein Urine Glucose (UA) Urine Ketones Urine Blood Urine Nitrite Ur Leukocyte Esterase Urine RBC Urine WBC Ur Squamous Epith Cells Urine Bacteria Hyaline Casts Influenza Type A (PCR) Influenza Type B (PCR) RSV RNA Qual (PCR) SARS-CoV-2 RNA (RT-PCR) ECG Attestation: I personally reviewed and interpreted this ECG as follows: (NSR no ischemic changes ) Prior ECG tracings: available for review Imaging Radiologist's Impressions: CXR Findings: Mild patchy right basilar density. Lungs are otherwise clear. No pleural effusion. No pneumothorax. Normal heart size and central pulmonary vascularity. No acute soft tissue or osseous abnormality. Impression: 1. Suggestion of developing right basilar infiltrate. Assessment and Plan (1) Pneumonia: Qualifiers: Laterality: unspecified laterality Lung location: unspecified part of lung Pneumonia type: due to unspecified organism Qualified Code(s): J18.9 - Pneumonia, unspecified organism Status: Acute (2) Acute hyperglycemia: Status: Acute (3) UTI (urinary tract infection): Qualifiers: Hematuria presence: without hematuria Urinary tract infection type: acute cystitis Qualified Code(s): N30.00 - Acute cystitis without hematuria Status: Acute Plan Pt is a 65-year-old male with past medical history HFrEF S/P Cardiomems, hypothyroidism, IDDM II on Trulicity, GERD, BPH, COPD/ asthma - nonsmoker exposed to second hand smoke not on home O2, HLD, HTN, CAD/ PCI X1 stent, osteomyelitis, Class I obesity, CKD 3a, presents to ED ambulatory with family with complaints of persistent cough and congestion X2 days with no recent travel or exposure to others with URI. Pt being admitted fro PNA, UTI and Hyperglycemia. Pt does not meet criteria for sepsis on admission. Pneumonia Continue ceftriaxone 1GM Q24H, changed azithromycin to doxycycline due to prolonged Qtc Pt remains on RA VIRAL studies negative for COVId, FLU and RSV Continue supportive care IS Acute hyperglycemia (no DKA) with HX of IDDM II Trending down SSI DIabetic diet Lantus HS Pt has not taken trulicity in 2 weeks (Saturday) due to constipation, does not plan to continue Pt does have first appt with campaign fundraiser Oct 14 2025 UTI Continue ceftriaxone Follow urine culture Prolonged Qtc Hold Aripoprazole Mg 2.1 ECG in AM Telemetry Constipation Trulicity held last 2 weeks, pt does not plan to resume Bowel regimen upgraded to senna, mirilax, fiber Dulcolax suppository prn Diabetic Neuropathy Previous OM/ wound L big toe closed and healed Pt educated to use podiatry services for all foot/nail care Continue Gabapentin once med rec completed CKD 3a Renal fx stable Avoid hypotension, nephrotoxic medications HFrEF Continue entresto, torsemide BP stable Daily weights, I/Os every 8 H, Fluid allowance 1500 mls per day Low NA, cardiac diet BNP 801, echo ordered for AM, consult cardiology if indicated (pt follows with router tender in [place], wants to change to [place]) HLD Continue statin, LFTs stable Cardiac diet Hypothyroidism Continue levothyroxine TSH pending GERD Omeperazole ordered Avoid food triggers BPH Continue tamsulosin Pt follows with urology as an outpatient DVT prophylaxis: lovenox MED REC PENDING FULL CODE Pt will require at least a 2 midnight stay for IV ABX and close hemodynamic monitoring. Quality Stroke Does the patient have a stroke diagnosis?: No Reason for No Anti-thrombotic by Day Two: N/A - Med Ordered VTE Prior VTE?: No VTE Risk Level:: Medical - moderate - high VTE Device Contraindication: N/A - Device Ordered VTE Drug Contraindication: N/A - Med Ordered
[2025-10-03 21:21] LABS: Magnesium 2.0 mg/dL (1.6-2.6)
[2025-10-03 21:22] LABS: NT Pro B Type Natriuretic Pept 801.5 pg/mL (<300)
[2025-10-03 22:02] LABS: D Dimer High Sensitivity < 150 NG/ML
[2025-10-03] MEDS: Albuterol/Iprat 2.5/0.5MG 3 ML AMPUL.NEB INHALE (22:27)
[2025-10-03 22:29] VITALS: PULSE 93; RESP 16; O2SAT 96
[2025-10-03] MEDS: Insulin Glargine,Hum.rec.anlog 100 UNIT/ML 10 ML VIAL 32 UNIT SUBCUT (23:00)
--- NOTE | 2025-10-03 23:47 | PC.NURSE ---
Report to THAD Petty via telephone
[2025-10-04] VITALS (7 sets, daily range): BP systolic 129–176; BP diastolic 58–98; PULSE 79–104; RESP 16–20; TEMP 36.4–37.1; O2SAT 93–98; BMI 29.7
--- NOTE | 2025-10-04 | ECG_ITS ---
Test Reason : qtc check Blood Pressure : */* mmHG Vent. Rate : 90 BPM Atrial Rate : 90 BPM P-R Int : 172 ms QRS Dur : 130 ms QT Int : 400 ms P-R-T Axes : 69 -35 79 degrees QTcB Int : 489 ms Sinus rhythm with occasional Premature ventricular complexes and Fusion complexes Left axis deviation Left ventricular hypertrophy with QRS widening and repolarization abnormality ( Sameer product ) Abnormal ECG When compared with ECG of 03-Oct-2025 14:29, Fusion complexes are now Present Premature ventricular complexes are now Present Referred By: Rae Owens Electronically Signed By: TATI COONEY MD
--- NOTE | 2025-10-04 | PC.NURSE ---
assumed care of pt, pt resting in stretcher, family at bedside. respirations even and unlabored.
[2025-10-04] MEDS: 0.9 % Sodium Chloride Flush 3 ML SYRINGE IVFLUSH (00:41)
[2025-10-04 02:37] LABS: Glucose, Whole Blood 375 mg/dL (60-115)
--- NOTE | 2025-10-04 03:38 | PC.NURSE ---
pt coughing a lot, given water, this id not help much. has a PRN duoneb but respiratory states this will not help with cough. provider advised, awaiting new orders.
--- NOTE | 2025-10-04 07:00 | CA_ITS ---
Transthoracic Echocardiogram Patient (Last, First, Middle): Yanick Arita, Gender: Male Date of : 1960 Age: 65 Procedure Date: 10/04/2025 Procedure Type: Transthoracic [place] [facility] [place]: 187.96 cm Weight: 104.78 kg BSA: 2.31 m2 Heart Rate: 82 bpm BP: 148 / 80 mmHg Secondary Set Up Man: VINNIE Referring MD: Amanda Fuentes [facility] Firm Administrator: Leo Guzman MD Symptoms: elevated BNP, ? pulmonary edema Study Quality: Adequate ECG Rhythm: Frequent ventricular premature beats Conclusions: - 1. Mildly dilated left ventricle with severely reduced LV ejection fraction 20-25% with suggestive of increased LV filling pressures 2. Mildly dilated left atrium 3. Cardiac valvular Dopplers within normal limits 4. Normal measured RV systolic pressure 5. No gross pericardial effusion Findings Left Ventricle Mildly increased left ventricular cavity size. There is normal left ventricular wall thickness. The left ventricular systolic function is severely decreased. The visually estimated ejection fraction is between 20 25%. Spectral Doppler is indicative of an impaired relaxation filling pattern. Elevated filling pressures. E/E prime ratio is >15, consistent with elevated filling pressures. Right Ventricle Normal right ventricular cavity size and systolic function. Atria The left atrium is mildly dilated. There is no evidence of interatrial shunt. The right atrium is normal in size. Aortic Valve There is mild calcification of the aortic valve. There is no aortic valve stenosis. There is no aortic valve regurgitation. Mitral Valve There is mild anterior and posterior mitral leaflet thickening. There is trace mitral valve regurgitation. There is no mitral valve stenosis. Pulmonic Valve The pulmonic valve was not well visualized. Tricuspid Valve Likely normal tricuspid valve structure and function. There is trace tricuspid valve regurgitation. The right ventricular systolic pressure is normal. The right ventricular systolic pressure is 15 mmHg. Normal right atrial pressure. There is no evidence of pulmonary hypertension. Great Vessels The pulmonary artery was not well visualized. Venous The inferior vena cava is normal in size and collapses greater than 50% with inspiration. Pericardium/Pleural There is no evidence of pericardial effusion. Prior Study Comparison No prior study available for comparison. Measurements 2D Linear Measurements IVSd: 1.05 0.6-0.9/0.6-1.0 cm LVIDd: 6.06 3.9-5.3/4.2-5.9 cm LVIDd Index: 2.62 2.4-3.2/2.2-3.1 cm/m2 LVIDs: 5.27 2.0-3.6 cm LVPWd: 1.16 0.7-1.1 cm LA Diam: 3.90 2.7-3.8/3.0-4.0 cm LAIDs Index: 1.69 1.5-2.3 cm/m2 LV Mass: 356.79 67-162/88-224 g LV Mass Index: 154.45 43-95/49-115 g/m2 LVOT Diam: 2.30 3.0+(-)1.3 cm 2D Systolic Function EF 4C: 22.20 >55% EF 2C: 32.40 >55% EF BiP: 23.60 >55% Mitral Valve MV Pk E: 0.51 MV PK A: 0.93 MV Decel Time: 204.00 E/A: 0.60 E'Lateral: 2.83 E'Medial: 3.05 E/E' Med: 16.90 E/E' Lat: 18.20 PHT: 60.00 MVA PHT: 3.67 Decel Chase: 2.52 Aortic Valve AoV Pk Jaya: 1.07 AoV Pk Grad: 5.00 LVOT LVOT Pk Jaya: 0.65 LVOT Mn Jaya: 0.47 LVOT VTI: 0.11 LVOT Pk Grad: 2.00 LVOT Mn Grad: 1.00 LVOT Diam: 2.30 LVOT Area: 4.15 Diastolic Function MV Pk E: 0.51 MV Pk A: 0.93 E/A: 0.60 E'Medial: 3.05 E/E' Med: 16.90 E' Laterial: 2.83 E/E' Lat: 18.20 Right Ventricle TAPSE (mm): 19.30 TVS' Jaya: 9.48 Tricuspid Valve TR Pk Jaya: 1.74 TR Pk Grad: 12.00 RA Press: 3.00 RVSP: 15.00 Great Vessels Aorta Sinus of Valsalva: 3.40 2.0-3.5 cm Ao Asc: 3.60 2.1-3.4 cm Pulmonary Valve PV Pk Jaya: 0.84 Peak PV Grad: 3.00 Updated in Other Vendor System with Status of Final Leo Guzman MD electronically signed on 10/04/2025 12:18:35 PM with status of Final
[2025-10-04 07:29] LABS: Glucose, Whole Blood 157 mg/dL (60-115)
[2025-10-04 07:29] LABS: MANUAL DIFF FLAG NO
[2025-10-04 07:37] LABS: Hematocrit 40.8 % (42.0-52.0); Hemoglobin 13.1 g/dl (14.0-18.0); Imm Gran Abs Auto 0.02 X10*3/uL (0.00-0.03); Imm Gran Pct Auto 0.2 % (0.0-0.4); Lymphocytes Absolute Auto 2.6 X10*3/uL (1.2-4.9); Mean Corpuscular HGB Conc 32.1 g/dl (31.0-36.0); Mean Corpuscular Hemoglobin 27.5 pg (27.0-33.0); Mean Corpuscular Volume 85.7 fL (80.0-98.0); NRBC Abs Auto 0.000 X10*3/uL (0.0-0.012); NRBC Pct Auto 0.0 /100WBC (0.0-0.2); Platelet Count 320 X10*3/uL (160-400); Red Blood Count 4.76 X10*6/uL (4.60-5.80); White Blood Count 8.8 X10*3/uL (4.8-10.8)
[2025-10-04 08:00] LABS: Alanine Aminotransferase 17 U/L (0-40); Albumin Level 3.5 g/dL (3.5-5.0); Alkaline Phosphatase 115 U/L (39-117); Anion Gap 12 (12-20); Aspartate Amino Transferase 17 U/L (5-37); Blood Urea Nitrogen 15 mg/dL (9-16); Calcium 9.0 mg/dL (8.4-10.2); Carbon Dioxide 23 mmol/L (22-29); Chloride 108 mmol/L (96-108); Creatinine Clr Calc Pharmacy 76.0; Estimated Glomerular Filt Rate 58; Potassium 3.7 mmol/L (3.3-5.1); Sodium 139 mmol/L (135-145); Total Protein 6.8 g/dL (6.5-8.0)
[2025-10-04] MEDS: calcium polycarbophiL TABLET 1 TAB PO (08:28)
[2025-10-04 08:43] LABS: Procalcitonin 0.04 ng/mL
--- NOTE | 2025-10-04 10:25 | PHA.MEDREC ---
Addendum entered by Natalie Nolen RP 10/04/25 11:11: Reviewed by [facility] Original Note: Pharmacy Consult ? Medication Reconciliation Pharmacy has completed the medication reconciliation. Spoke with pt, utilizing director of residential services, and pt was able to confirm his medications. Pt states he is non compliant with taking his medications and has a bunch of meds he still confirmed he is still taking despite claims showing they haven't been filled since the beginning of the year; Ariprazole (No claims, [facility] 05/2024), Carvedilol ( 05/18/2025 for 90 days), Gabapentin ( 11/26/2024 for 90 days), Tresiba ( 06/17/2025 for 45 days), Humalog ( 06/17/2025 for 16 days), Levothyroxine 50mcg ( 01/17/2025 for 84 days), Pantoprazole ( 03/11/2025 for 90 days) and Trulicity once a week on Mondays ( 05/03/2025 for 28 fays, pt has not taken this in ~4 weeks since not feeling well). Pt unsure the last time hes been able to take any of his meds since developing these symptoms.
[2025-10-04 11:16] LABS: Glucose, Whole Blood 162 mg/dL (60-115)
[2025-10-04] MEDS: vancomycin/NS 2,000 MG/500 ML PLAST..BAG 250 MG IV (12:27)
--- NOTE | 2025-10-04 13:01 | PHA.PROG ---
Admission Date/Time: October 03, 2025 20:55 Indication: Bacteremia Weight in k.9 kg Adjusted body weight in Kg: [place] body weight in Kg: Obesity Dosing Indication % IBW: Serum Creatinine - Last 168 Hours 10/03/25 10/04/25 14:37 07:20 Creatinine 1.65 H 1.25 Estimated CrCl and GFR - Last 168 Hours 10/03/25 10/04/25 14:37 07:20 Estim Creat Clear Calc 58.9 76.0 Estimated GFR 42 58 Vancomycin Loading Dose: 2000ng Current Vancomycin Dosing Regimen:500mg q8h Vancomycin Monitoring using AUC goal of 400 - 600 range with trough as surrogate marker: 423 mg/L*hr Date and Time for next Vancomycin Level to be drawn: 10/05/2025 @ 1900 Pharmacist Comments on Vancomycin Plan: Vancomycin dosing will take advantage of [employer] as a clinical decision support tool that uses Bayesian modeling to calculate individual patient's pharmacokinetic parameters and forecast the patient's drug concentration time course with the target goal AUC 24 range of 400 - 600 mg/L/hr.
--- NOTE | 2025-10-04 15:15 | HO.PM.IMPN ---
Subjective Subjective Date of Service: 10/04/25 Interval History: This history was taken in Macedonian from the patient. Coughing up clear sputum No chest pain Review of Systems Review of Systems: Yes all other systems are reviewed and are negative Physical Exam Vital Signs: Vital Signs: Last Vital Signs Temp 97.5 F 10/04/25 11:41 Pulse 86 10/04/25 11:41 Resp 18 10/04/25 11:41 BP 150/96 H 10/04/25 11:41 Pulse Ox 93 10/04/25 11:41 O2 Del Method Room Air 10/04/25 11:41 BMI result Body Mass Index 29.7 Gen: in no acute distress HEENT: sclera anicteric, moist mucus membranes Neck: supple Lungs: diminished Heart: regular rate and rhythm, no murmurs Abd: soft, non-tender, non-distended Ext: no edema Skin: warm/well-perfused Neuro: alert and oriented x3, no focal findings Psych: appropriate affect Objective Data Active Medications Acetaminophen (Acetaminophen 325 Mg Tablet) 650 mg PO Q6H PRN PRN Reason: Pain, Mild 1-3,fever,headache Albuterol/Ipratropium (Albuterol/Iprat 2.5/0.5mg 3 Ml Ampul.Neb) 3 ml INHALE Q4H PRN PRN Reason: Shortness of Breath/Wheezing Last Admin: 10/03/25 22:27 Dose: 3 ml Documented By: CAROLYN Aripiprazole (Aripiprazole 2 Mg Tablet) 2 mg PO DAILY [facility] Atorvastatin Calcium (Atorvastatin Calcium 80 Mg Tablet) 80 mg PO BEDTIME ESTHER Bisacodyl (Bisacodyl 10 Mg Supp.Rect) 10 mg MA BEDTIME PRN PRN Reason: Constipation Budesonide (Budesonide 0.5 Mg/2 Ml Ampul.Neb) 0.5 mg INHALE RBID [facility] Last Admin: 10/04/25 08:10 Dose: 0.5 mg Documented By: ANDREW Calcium Carbonate (Calcium Carbonate 750 Mg Tab.Chew) 750 mg PO Q4H PRN PRN Reason: Heartburn Calcium Polycarbophil (Calcium Polycarbophil Tablet) 1 tab PO DAILY [facility] Last Admin: 10/04/25 08:28 Dose: 1 tab Documented By: LONG Carvedilol (Carvedilol 12.5 Mg Tablet) 12.5 mg PO BID [facility]; Protocol Last Admin: 10/04/25 12:34 Dose: 12.5 mg Documented By: LONG Dextrose (Dextrose 50 % 25 Gm/50 Ml Syringe) 25 gm IVPUSH Q15M PRN; Protocol PRN Reason: per Hypoglycemia Standing Ord. Enoxaparin Sodium (Enoxaparin Sodium 40 Mg/0.4 Ml Syringe) 40 mg SUBCUT Q24H [facility] Last Admin: 10/03/25 23:01 Dose: 40 mg Documented By: JULIEN Gabapentin (Gabapentin 100 Mg Capsule) 100 mg PO TID [facility] Glucose (Glucose Gel 15 Gm Gel..Gram.) 15 gm PO Q15M PRN; Protocol PRN Reason: per Hypoglycemia Standing Ord. Guaifenesin (Guaifenesin 200 Mg/10 Ml 10 Ml Liquid) 10 ml PO Q4H PRN PRN Reason: Cough Ceftriaxone Sodium 1 gm/ (Sodium Chloride) 50 mls @ 100 mls/hr IV Q24H [facility] Doxycycline Hyclate 100 mg/ (Sodium Chloride) 250 mls @ 166.67 mls/hr IV Q12H [facility] Last Infusion: 10/04/25 08:12 Dose: Infused Documented By: LONG Vancomycin HCl 500 mg/ Sodium (Chloride) 110 mls @ 110 mls/hr IV Q8H [facility] Insulin Glargine (Insulin Glargine,Hum.Rec.Anlog 100 Unit/Ml 10 Ml Vial) 32 unit SUBCUT BEDTIME [facility] Last Admin: 10/03/25 23:00 Dose: 32 unit Documented By: JULIEN Insulin Human Lispro (Insulin Lispro 100 Unit/Ml 3 Ml Vial) 0 unit SUBCUT QIDACHS [facility]; Protocol Last Admin: 10/04/25 12:34 Dose: 2 unit Documented By: LONG Levothyroxine Sodium (Levothyroxine Sodium 50 Mcg Tablet) 50 mcg PO DAILY@0600 [facility] Last Admin: 10/04/25 12:34 Dose: 50 mcg Documented By: LONG Magnesium Hydroxide (Milk Of Magnesia 30 Ml Oral.Susp) 30 ml PO DAILY PRN PRN Reason: Constipation Melatonin (Melatonin 3 Mg Tablet) 6 mg PO BEDTIME PRN PRN Reason: Insomnia Omeprazole (Omeprazole 20 Mg Capsule.Dr) 20 mg PO DAILY@0630 [facility] Pharmacy Consult (Consult Rx Vancomycin Dosing) 1 each MISCELLANE DAILY PRN PRN Reason: Consult order Polyethylene Glycol (Polyethylene Glycol 3350 17 Gm Powd.Pack) 17 gm PO DAILY [facility] Last Admin: 10/04/25 10:28 Dose: 17 gm Documented By: LONG Senna (Sennosides 8.6 Mg Tablet) 17.2 mg PO BEDTIME [facility] Last Admin: 10/03/25 23:01 Dose: 17.2 mg Documented By: JULIEN Sodium Chloride (0.9 % Sodium Chloride Flush 3 Ml Syringe) 3 ml IVFLUSH QSHIFT [facility] Last Admin: 10/04/25 08:28 Dose: Not Given Documented By: LONG Non-Admin Reason: IV Running Tamsulosin HCl (Tamsulosin Hcl 0.4 Mg Capsule) 0.4 mg PO DAILY [facility] Torsemide (Torsemide 20 Mg Tablet) 40 mg PO BID [facility]; Protocol Labs 10/04/25 07:20 10/04/25 07:20 Labs: Laboratory Results - last 24 hr 10/03/25 10/03/25 10/03/25 14:37 15:36 17:49 MCV MCH MCHC RDW Plt Count MPV Immature Gran % (Auto) Neut % (Auto) Lymph % (Auto) [place] % (Auto) Eos % (Auto) Baso % (Auto) Lymph # (Auto) [place] # (Auto) Eos # (Auto) Baso # (Auto) Abs Immat Gran (auto) Absolute Neuts (auto) Absolute Nucleated RBC Nucleated RBC % (auto) D-Dimer High Sensitivty VBG pH 7.37 VBG pCO2 43 VBG pO2 73 VBG HCO3 25 VBG O2 Saturation 91.0 VBG Base Excess -0.3 Anion Gap 16 Estim Creat Clear Calc 58.9 Estimated GFR 42 POC Glucose Random Glucose 611 H* Estimat Average Glucose Hemoglobin A1c % Lactic Acid Calcium 9.5 Magnesium 2.0 Total Bilirubin 0.2 Direct Bilirubin < 0.2 AST 23 ALT 18 Alkaline Phosphatase 140 H Troponin I High Sens 11.1 NT-Pro-B Natriuret Pep 801.5 H Total Protein 7.7 Albumin 3.9 Lipase 20 Beta-Hydroxybutyrate 0.10 Procalcitonin TSH 0.64 Urine Color Yellow Urine Appearance Clear Urine pH 6.0 Ur Specific [place] >= 1.030 H Urine Protein Negative Urine Glucose (UA) >=1000 H Urine Ketones Negative Urine Blood Negative Urine Nitrite Positive H Ur Leukocyte Esterase Small (1+) H Urine RBC 0-2 Urine WBC 21-50 Ur Squamous Epith Cells 0-2 Urine Bacteria 4+ Hyaline Casts 0-2 Influenza Type A (PCR) NEGATIVE Influenza Type B (PCR) NEGATIVE RSV RNA Qual (PCR) NEGATIVE SARS-CoV-2 RNA (RT-PCR) NEGATIVE 10/03/25 10/03/25 10/03/25 19:16 20:18 21:23 MCV MCH MCHC RDW Plt Count MPV Immature Gran % (Auto) Neut % (Auto) Lymph % (Auto) [place] % (Auto) Eos % (Auto) Baso % (Auto) Lymph # (Auto) [place] # (Auto) Eos # (Auto) Baso # (Auto) Abs Immat Gran (auto) Absolute Neuts (auto) Absolute Nucleated RBC Nucleated RBC % (auto) D-Dimer High Sensitivty < 150 VBG pH VBG pCO2 VBG pO2 VBG HCO3 VBG O2 Saturation VBG Base Excess Anion Gap Estim Creat Clear Calc Estimated GFR POC Glucose 433 H* Random Glucose Estimat Average Glucose Hemoglobin A1c % Lactic Acid 1.8 Calcium Magnesium Total Bilirubin Direct Bilirubin AST ALT Alkaline Phosphatase Troponin I High Sens NT-Pro-B Natriuret Pep Total Protein Albumin Lipase Beta-Hydroxybutyrate Procalcitonin TSH Urine Color Urine Appearance Urine pH Ur Specific [place] Urine Protein Urine Glucose (UA) Urine Ketones Urine Blood Urine Nitrite Ur Leukocyte Esterase Urine RBC Urine WBC Ur Squamous Epith Cells Urine Bacteria Hyaline Casts Influenza Type A (PCR) Influenza Type B (PCR) RSV RNA Qual (PCR) SARS-CoV-2 RNA (RT-PCR) 10/04/25 10/04/25 10/04/25 02:33 07:20 07:26 MCV 85.7 MCH 27.5 MCHC 32.1 RDW 13.9 Plt Count 320 MPV 9.9 Immature Gran % (Auto) 0.2 Neut % (Auto) 49.8 Lymph % (Auto) 29.7 [place] % (Auto) 6.9 Eos % (Auto) 12.6 H Baso % (Auto) 0.8 Lymph # (Auto) 2.6 [place] # (Auto) 0.6 Eos # (Auto) 1.1 H Baso # (Auto) 0.1 Abs Immat Gran (auto) 0.02 Absolute Neuts (auto) 4.4 Absolute Nucleated RBC 0.000 Nucleated RBC % (auto) 0.0 D-Dimer High Sensitivty VBG pH VBG pCO2 VBG pO2 VBG HCO3 VBG O2 Saturation VBG Base Excess Anion Gap 12 Estim Creat Clear Calc 76.0 Estimated GFR 58 POC Glucose 375 H* 157 H Random Glucose 152 H Estimat Average Glucose 226 Hemoglobin A1c % 9.5 H Lactic Acid Calcium 9.0 Magnesium Total Bilirubin 0.2 Direct Bilirubin AST 17 ALT 17 Alkaline Phosphatase 115 Troponin I High Sens NT-Pro-B Natriuret Pep Total Protein 6.8 Albumin 3.5 Lipase Beta-Hydroxybutyrate Procalcitonin 0.04 TSH Urine Color Urine Appearance Urine pH Ur Specific [place] Urine Protein Urine Glucose (UA) Urine Ketones Urine Blood Urine Nitrite Ur Leukocyte Esterase Urine RBC Urine WBC Ur Squamous Epith Cells Urine Bacteria Hyaline Casts Influenza Type A (PCR) Influenza Type B (PCR) RSV RNA Qual (PCR) SARS-CoV-2 RNA (RT-PCR) 10/04/25 11:12 MCV MCH MCHC RDW Plt Count MPV Immature Gran % (Auto) Neut % (Auto) Lymph % (Auto) [place] % (Auto) Eos % (Auto) Baso % (Auto) Lymph # (Auto) [place] # (Auto) Eos # (Auto) Baso # (Auto) Abs Immat Gran (auto) Absolute Neuts (auto) Absolute Nucleated RBC Nucleated RBC % (auto) D-Dimer High Sensitivty VBG pH VBG pCO2 VBG pO2 VBG HCO3 VBG O2 Saturation VBG Base Excess Anion Gap Estim Creat Clear Calc Estimated GFR POC Glucose 162 H Random Glucose Estimat Average Glucose Hemoglobin A1c % Lactic Acid Calcium Magnesium Total Bilirubin Direct Bilirubin AST ALT Alkaline Phosphatase Troponin I High Sens NT-Pro-B Natriuret Pep Total Protein Albumin Lipase Beta-Hydroxybutyrate Procalcitonin TSH Urine Color Urine Appearance Urine pH Ur Specific [place] Urine Protein Urine Glucose (UA) Urine Ketones Urine Blood Urine Nitrite Ur Leukocyte Esterase Urine RBC Urine WBC Ur Squamous Epith Cells Urine Bacteria Hyaline Casts Influenza Type A (PCR) Influenza Type B (PCR) RSV RNA Qual (PCR) SARS-CoV-2 RNA (RT-PCR) Microbiology Microbiology Results: Microbiology 10/03/25 Unknown Urine Culture - Preliminary Urine clean catch - Clean Catch Midstream Gram negative belkys 10/03/25 19:47 Blood Culture - Preliminary Blood - Venous Prelim: GPC Gram Stain only Assessment and Plan (1) VINCENT (acute kidney injury): Status: Acute Plan d2, 65yo F with HFrEF with CardioMEMS in place, hypothyroidism, DM2, GERD, BPH, COPD/asthma, HLD, HTN, CAD s/p PCI x1, CKD3a presenting with cough x2d, found to have VINCENT, hyperglycemia, pneumonia, and UTI. GPC bacteremia. PNA with possible GPC bacteremia - continue ceftriaxone + doxycycline 10/03-, follow BCx, trend PCT, start vancomycin, repeat BCx UTI - ceftriaxone 10/03-, follow UCx chronic HFrEF - continue carvedilol, torsemide - TTE 10/04/25: 1. Mildly dilated left ventricle with severely reduced LV ejection fraction 20-25% with suggestive of increased LV filling pressures 2. Mildly dilated left atrium 3. Cardiac valvular Dopplers within normal limits 4. Normal measured RV systolic pressure 5. No gross pericardial effusion - Cardiology consultation VINCENT/CKD3 - Cr improved after IV fluids DM2 with acute hyperglycemia without DKA - A1c 9.5; basal-bolus insulin; has Endocrinology appt 10/14/25 DM neuropathy: gabapentin constipation: bowel regimen CAD, HLD: atorvastatin hypothyroidism: continue LT4 GERD: PPI BPH: tamsulosin mood disorder: aripiprazole VTE ppx: enoxaparin dispo: TBD In my clinical judgment, the patient requires continued inpatient hospitalization for the following reasons: IV ABX Total time managing care of this patient today: 45 minutes. Quality Stroke Does the patient have a stroke diagnosis?: No Reason for No Anti-thrombotic by Day Two: N/A - Med Ordered VTE Prior VTE?: No VTE Risk Level:: Medical - moderate - high VTE Device Contraindication: N/A - Device Ordered VTE Drug Contraindication: N/A - Med Ordered
--- NOTE | 2025-10-04 16:23 | MHC.CM.PN ---
Pt. not ready to DC, he is being treated with IV ABX, CM to complete assessment on 10/04/25
[2025-10-04 16:43] LABS: Glucose, Whole Blood 73 mg/dL (60-115)
[2025-10-04 20:04] LABS: Glucose, Whole Blood 242 mg/dL (60-115)
[2025-10-04] MEDS: Insulin Glargine,Hum.rec.anlog 100 UNIT/ML 10 ML VIAL 32 UNIT SUBCUT (22:17)
[2025-10-04] MEDS: guaiFENesin 200 MG/10 ML 10 ML LIQUID PO (22:35)
[2025-10-05] VITALS (9 sets, daily range): BP systolic 122–158; BP diastolic 75–87; PULSE 72–98; RESP 16–19; TEMP 36–37.1; O2SAT 94–97; BMI 31.0
[2025-10-05 02:55] LABS: Glucose, Whole Blood 79 mg/dL (60-115)
[2025-10-05 07:16] LABS: Glucose, Whole Blood 114 mg/dL (60-115)
[2025-10-05 08:16] LABS: Creatinine Clr Calc Pharmacy 74.6; Estimated Glomerular Filt Rate 55
[2025-10-05] MEDS: 0.9 % Sodium Chloride Flush 3 ML SYRINGE IVFLUSH ×3 (08:36→22:10)
[2025-10-05] MEDS: calcium polycarbophiL TABLET 1 TAB PO (08:56)
--- NOTE | 2025-10-05 09:53 | MHC.CM.PN ---
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 has [employer] about 40 hrs a week. For DME, he uses a cane, walker and nebulizer. Pt. can arrange a ride home at DC, DCP: home self care or with services. CM to follow for DC needs.
[2025-10-05 11:10] LABS: Glucose, Whole Blood 226 mg/dL (60-115)
--- NOTE | 2025-10-05 11:14 | PM.CNCAR ---
History of Present Illness History of Present Illness Date of Service: 10/05/25 Consult reason: congestive heart failure Chief complaint: PNA, Hyperglycemia Narrative: I was consulted to see you on in cardiology consultation today due to significantly reduced LV ejection fraction. History was obtained with help of aerial photograph interpreter and despite the aerial photograph interpreter patient is extremely poor historian and not able to give much history. Patient said he was diagnose with heart issues for years ago. Reviewed [facility] records and seems like he has diagnose with nonischemic cardiomyopathy with LVEF in the 15-20% range at that time. He underwent a CardioMEMS device. I reviewed the last note from 2022 with [facility] where he was supposedly on Entresto, Jardiance, carvedilol and diuretic regimen. However since then currently does not appear to be an Entresto therapy for unclear reason. Entresto was stopped at that time for cough although patient says he has chronic cough and that has never got better. Patient has chronic shortness of breath on exertional. Also describes symptoms suggestive of orthopnea and intermittently leg edema. He is currently on high dose torsemide therapy. Not sure who follows his CardioMEMS and he has no idea as well. He has not had any follow up with a plumber's helper in some time as per him. Patient came into the hospital with symptoms of shortness of breath. Patient continues to have cough and congestion. On admission was noted to have significant hyperglycemia and also had acute kidney injury creatinine 1.6 range which is his baseline. However since admission his creatinine has improved to 1.3 range with improvement in his GFR. Continues to have symptoms of shortness of breath including rest but appears very comfortable to me. Noted to have UTI by urinary analysis. Chest x-ray consistent with pneumonia. He has been treated for Gram-positive bacteremia with possible pneumonia. Overall no active chest pain or palpitation. No significant cardiac arrhythmias noted. Review of Systems Constitutional: Constitutional: Reports weakness Cardiovascular: Cardiovascular: Denies chest pain, Reports leg edema, Denies lightheadedness, Denies Loss of Consciousness, Reports dyspnea on exertion and Reports orthopnea Respiratory: Respiratory: Reports no additional respiratory complaints and Reports dyspnea on exertion Genitourinary: Genitourinary: Reports no additional male genitourinary complaints Integumentary/Breasts: Skin/Breast: Reports system reviewed and no additional complaints, except as docu Neurologic: Reports system reviewed and no additional complaints, except as documented and Reports weakness PMFSH Past Medical History Medical History CKD (chronic kidney disease) stage 3, GFR 30-59 ml/min CKD (chronic kidney disease) stage 3, GFR 30-59 ml/min Left leg swelling Skin ulcer of left great toe Osteomyelitis of great toe of left foot Cellulitis of left leg PAD (peripheral artery disease) Insulin dependent type 2 diabetes mellitus Osteomyelitis Class 1 obesity Social History Social History Household Members: Spouse Housing: Apartment Do you presently have visiting nurse or other home services: Yes ([employer], daily) Patient Tobacco Use Status: Never used Tobacco Smoked in Last 30 Days: No e-Cigarette/Vaping Use: Never Used Use of substances other than those prescribed or required for medical reasons: No Have you been hit, kicked, punched, or otherwise hurt by someone within the past year? If so, by whom?: No Do you feel safe in your current relationship?: No Is there a partner from a previous relationship who is making you feel unsafe now?: No Are you made to feel afraid or neglected: No Advance Directives: No Advance Directives Information Provided: Yes Do you have a plan to hurt others: No Plan Recently lost weight without trying: No Eating poorly because of decreased appetite: No Nutrition Risks: No Nutritional Risk and Dental problems service: No Travel History Ebola Risk: Travel/Contact With Anyone From Affected Area/s: No Has Patient Experienced Ebola Symptoms: No Meds Allergies Allergy/AdvReac Type Severity Reaction Status Date / Time No Known Drug Allergies Allergy Unknown Verified 10/03/25 14:16 Active Medications: Current Medications Acetaminophen (Acetaminophen 325 Mg Tablet) 650 mg PO Q6H PRN PRN Reason: Pain, Mild 1-3,fever,headache Albuterol/Ipratropium (Albuterol/Iprat 2.5/0.5mg 3 Ml Ampul.Neb) 3 ml INHALE Q4H PRN PRN Reason: Shortness of Breath/Wheezing Last Admin: 10/03/25 22:27 Dose: 3 ml Aripiprazole (Aripiprazole 2 Mg Tablet) 2 mg PO DAILY [facility] Last Admin: 10/05/25 08:56 Dose: 2 mg Atorvastatin Calcium (Atorvastatin Calcium 80 Mg Tablet) 80 mg PO BEDTIME [facility] Last Admin: 10/04/25 22:18 Dose: 80 mg Bisacodyl (Bisacodyl 10 Mg Supp.Rect) 10 mg MS BEDTIME PRN PRN Reason: Constipation Budesonide (Budesonide 0.5 Mg/2 Ml Ampul.Neb) 0.5 mg INHALE RBID [facility] Last Admin: 10/05/25 07:43 Dose: 0.5 mg Calcium Carbonate (Calcium Carbonate 750 Mg Tab.Chew) 750 mg PO Q4H PRN PRN Reason: Heartburn Calcium Polycarbophil (Calcium Polycarbophil Tablet) 1 tab PO DAILY [facility] Last Admin: 10/05/25 08:56 Dose: 1 tab Carvedilol (Carvedilol 12.5 Mg Tablet) 12.5 mg PO BID [facility]; Protocol Last Admin: 10/05/25 08:56 Dose: 12.5 mg Dextrose (Dextrose 50 % 25 Gm/50 Ml Syringe) 25 gm IVPUSH Q15M PRN; Protocol PRN Reason: per Hypoglycemia Standing Ord. Enoxaparin Sodium (Enoxaparin Sodium 40 Mg/0.4 Ml Syringe) 40 mg SUBCUT Q24H [facility] Last Admin: 10/04/25 22:19 Dose: 40 mg Gabapentin (Gabapentin 100 Mg Capsule) 100 mg PO TID [facility] Last Admin: 10/05/25 08:57 Dose: 100 mg Glucose (Glucose Gel 15 Gm Gel..Gram.) 15 gm PO Q15M PRN; Protocol PRN Reason: per Hypoglycemia Standing Ord. Guaifenesin (Guaifenesin 200 Mg/10 Ml 10 Ml Liquid) 10 ml PO Q4H PRN PRN Reason: Cough Last Admin: 10/04/25 22:35 Dose: 10 ml Ceftriaxone Sodium 1 gm/ (Sodium Chloride) 50 mls @ 100 mls/hr IV Q24H [facility] Last Infusion: 10/04/25 18:48 Dose: Infused Doxycycline Hyclate 100 mg/ (Sodium Chloride) 250 mls @ 166.67 mls/hr IV Q12H [facility] Last Infusion: 10/05/25 09:43 Dose: Infused Vancomycin HCl 500 mg/ Sodium (Chloride) 110 mls @ 110 mls/hr IV Q8H [facility] Last Infusion: 10/05/25 06:23 Dose: Infused Insulin Glargine (Insulin Glargine,Hum.Rec.Anlog 100 Unit/Ml 10 Ml Vial) 32 unit SUBCUT BEDTIME [facility] Last Admin: 10/04/25 22:17 Dose: 32 unit Insulin Human Lispro (Insulin Lispro 100 Unit/Ml 3 Ml Vial) 0 unit SUBCUT QIDACHS [facility]; Protocol Last Admin: 10/05/25 07:35 Dose: Not Given Levothyroxine Sodium (Levothyroxine Sodium 50 Mcg Tablet) 50 mcg PO DAILY@0600 [facility] Last Admin: 10/05/25 05:23 Dose: 50 mcg Magnesium Hydroxide (Milk Of Magnesia 30 Ml Oral.Susp) 30 ml PO DAILY PRN PRN Reason: Constipation Melatonin (Melatonin 3 Mg Tablet) 6 mg PO BEDTIME PRN PRN Reason: Insomnia Omeprazole (Omeprazole 20 Mg Capsule.Dr) 20 mg PO DAILY@0630 [facility] Last Admin: 10/05/25 05:23 Dose: 20 mg Pharmacy Consult (Consult Rx Vancomycin Dosing) 1 each MISCELLANE DAILY PRN PRN Reason: Consult order Polyethylene Glycol (Polyethylene Glycol 3350 17 Gm Powd.Pack) 17 gm PO DAILY [facility] Last Admin: 10/05/25 08:59 Dose: 17 gm Senna (Sennosides 8.6 Mg Tablet) 17.2 mg PO BEDTIME [facility] Last Admin: 10/04/25 22:19 Dose: 17.2 mg Sodium Chloride (0.9 % Sodium Chloride Flush 3 Ml Syringe) 3 ml IVFLUSH QSHIFT [facility] Last Admin: 10/05/25 08:36 Dose: 3 ml Tamsulosin HCl (Tamsulosin Hcl 0.4 Mg Capsule) 0.4 mg PO DAILY [facility] Last Admin: 10/05/25 08:57 Dose: 0.4 mg Torsemide (Torsemide 20 Mg Tablet) 40 mg PO BID [facility]; Protocol Last Admin: 10/05/25 08:55 Dose: 40 mg Home Medications ?Medication ?Instructions ?Recorded ?Confirmed ?Last Taken ?Type carvedilol 12.5 mg tablet 12.5 mg PO BID 03/29/25 10/04/25 05/19/25 History insulin degludec 100 unit/mL (3 32 unit subcut DAILY 03/29/25 10/04/25 Unknown History mL) subcutaneous pen (Tresiba FlexTouch U-100 insulin) levothyroxine 50 mcg capsule 50 mcg PO DAILY@0600 03/29/25 10/04/25 05/19/25 History pantoprazole 40 mg tablet,delayed 40 mg PO DAILY@0630 03/29/25 10/04/25 05/19/25 History release tamsulosin 0.4 mg capsule 0.4 mg PO DAILY 03/29/25 10/04/25 05/19/25 History dulaglutide 1.5 mg/0.5 mL 1.5 mg subcut TU 05/19/25 10/04/25 05/04/25 History subcutaneous pen injector (Trulicity) insulin lispro 100 unit/mL See Protocol subcut TIDAC 05/19/25 10/04/25 Unknown History subcutaneous pen (Humalog KwikPen (U-100) Insulin) aripiprazole 2 mg tablet 2 mg PO DAILY 05/20/25 10/04/25 Unknown History gabapentin 100 mg capsule 100 mg PO TID 05/20/25 10/04/25 Unknown History albuterol sulfate 2.5 mg/3 mL 2.5 mg Q6H PRN Shortness Of Breath 10/04/25 10/04/25 Unknown History (0.083 %) solution for nebulization Or Wheezing rosuvastatin 40 mg tablet 40 mg PO BEDTIME 10/04/25 10/04/25 Unknown History torsemide 20 mg tablet 40 mg PO BID 10/04/25 10/04/25 Unknown History Physical Exam Vital Signs: Vital Signs: Last Vital Signs Temp 98.1 F 10/05/25 07:41 Pulse 72 10/05/25 07:41 Resp 18 10/05/25 07:41 BP 158/84 H 10/05/25 07:41 Pulse Ox 94 10/05/25 07:41 O2 Del Method Room Air 10/05/25 07:41 BMI result Body Mass Index 31.0 Const: General: cooperative, comfortable, no acute distress, alert and awake Nutritional Appearance: average body habitus Orientation/consciousness: patient oriented x3 HEENT: Head: Yes normocephalic and Yes atraumatic Neck: Neck: Yes trachea midline, Yes supple and Yes no JVD (+AJR) Resp: Effort & Inspection: normal respiratory effort Auscultation: wheezes Cardio: Jugular venous distension: no JVD Palpation: abnormal PMI displaced PMI Rate: regular rate Rhythm: regular rhythm Heart sounds: S1 normal heart sound present, S2 normal heart sound present, no click, no gallops and no murmurs GI: Auscultation: normal bowel sounds Skin: General skin exam: no rashes or lesions noted Neuro: General: patient oriented x3 and no focal motor deficits Extrem: General: Yes no clubbing, cyanosis or edema Objective Labs and Meds 10/04/25 07:20 10/05/25 07:26 Lab results: Laboratory Results - last 24 hr 10/04/25 10/04/25 10/04/25 11:12 16:04 19:52 Creatinine Estim Creat Clear Calc Estimated GFR POC Glucose 162 H 73 242 H 10/05/25 10/05/25 10/05/25 02:50 07:12 07:26 Creatinine 1.30 Estim Creat Clear Calc 74.6 Estimated GFR 55 POC Glucose 79 114 10/05/25 11:02 Creatinine Estim Creat Clear Calc Estimated GFR POC Glucose 226 H Assessment and Plan (1) Heart failure with reduced ejection fraction: Status: Acute Heart failure with reduced ejection fraction this elderly gentleman with prior question CAD I would could not find any clear documentation with persistently and significantly reduced LV ejection fraction not on ideal guideline based medical therapy. His creatinine has improved. Currently on carvedilol and high dose torsemide with clinically appears to be euvolemic at this point time. I do not think he needs IV diuresis at this point time. Would add Entresto 24-26 mg b.i.d. for neurohormonal modulation follow renal function closely. Once he tolerates Entresto therapy and renal function is stable I would consider adding Jardiance 10 mg to his regimen. Heart failure management was discussed. He has longstanding severe LV systolic dysfunction without any significant improvement in his the long run should consider ICD placement for primary prevention. Although this was discussed with the help of aerial photograph interpreter and still seems like he did not understand well and there is issue with comprehension for his significant cardiovascular disease. Importance of compliance with medication knowing his medications were discussed with him in details as well. Should consider social interventions. He does have diffuse wheezing and should benefit from bronchodilators therapy Will follow with you. Procedures Date of Service Date of Service: 10/05/25
--- NOTE | 2025-10-05 13:53 | HO.PM.IMPN ---
Subjective Subjective Date of Service: 10/05/25 Interval History: c/o cough, minimal dyspnea no chest pain Review of Systems Review of Systems: Yes all other systems are reviewed and are negative Physical Exam Vital Signs: Vital Signs: Last Vital Signs Temp 98.3 F 10/05/25 11:12 Pulse 82 10/05/25 11:12 Resp 18 10/05/25 11:12 BP 137/76 10/05/25 11:12 Pulse Ox 94 10/05/25 11:12 O2 Del Method Room Air 10/05/25 11:12 BMI result Body Mass Index 31.0 Gen: in no acute distress HEENT: sclera anicteric, moist mucus membranes Neck: supple Lungs: diminished Heart: regular rate and rhythm, no murmurs Abd: soft, non-tender, non-distended Ext: no edema Skin: warm/well-perfused Neuro: alert and oriented x3, no focal findings Psych: appropriate affect Objective Data Active Medications Acetaminophen (Acetaminophen 325 Mg Tablet) 650 mg PO Q6H PRN PRN Reason: Pain, Mild 1-3,fever,headache Albuterol/Ipratropium (Albuterol/Iprat 2.5/0.5mg 3 Ml Ampul.Neb) 3 ml INHALE Q4H PRN PRN Reason: Shortness of Breath/Wheezing Last Admin: 10/03/25 22:27 Dose: 3 ml Documented By: CAROLYN Aripiprazole (Aripiprazole 2 Mg Tablet) 2 mg PO DAILY [facility] Last Admin: 10/05/25 08:56 Dose: 2 mg Documented By: CAROL Atorvastatin Calcium (Atorvastatin Calcium 80 Mg Tablet) 80 mg PO BEDTIME [facility] Last Admin: 10/04/25 22:18 Dose: 80 mg Documented By: MATY Bisacodyl (Bisacodyl 10 Mg Supp.Rect) 10 mg [place] BEDTIME PRN PRN Reason: Constipation Budesonide (Budesonide 0.5 Mg/2 Ml Ampul.Neb) 0.5 mg INHALE RBID [facility] Last Admin: 10/05/25 07:43 Dose: 0.5 mg Documented By: SCOVILUISITO Calcium Carbonate (Calcium Carbonate 750 Mg Tab.Chew) 750 mg PO Q4H PRN PRN Reason: Heartburn Calcium Polycarbophil (Calcium Polycarbophil Tablet) 1 tab PO DAILY [facility] Last Admin: 10/05/25 08:56 Dose: 1 tab Documented By: CAROL Carvedilol (Carvedilol 12.5 Mg Tablet) 12.5 mg PO BID [facility]; Protocol Last Admin: 10/05/25 08:56 Dose: 12.5 mg Documented By: CAROL Dextrose (Dextrose 50 % 25 Gm/50 Ml Syringe) 25 gm IVPUSH Q15M PRN; Protocol PRN Reason: per Hypoglycemia Standing Ord. Enoxaparin Sodium (Enoxaparin Sodium 40 Mg/0.4 Ml Syringe) 40 mg SUBCUT Q24H [facility] Last Admin: 10/04/25 22:19 Dose: 40 mg Documented By: MATY Gabapentin (Gabapentin 100 Mg Capsule) 100 mg PO TID [facility] Last Admin: 10/05/25 08:57 Dose: 100 mg Documented By: CAROL Glucose (Glucose Gel 15 Gm Gel..Gram.) 15 gm PO Q15M PRN; Protocol PRN Reason: per Hypoglycemia Standing Ord. Guaifenesin (Guaifenesin 200 Mg/10 Ml 10 Ml Liquid) 10 ml PO Q4H PRN PRN Reason: Cough Last Admin: 10/04/25 22:35 Dose: 10 ml Documented By: MATY Ceftriaxone Sodium 1 gm/ (Sodium Chloride) 50 mls @ 100 mls/hr IV Q24H [facility] Last Infusion: 10/04/25 18:48 Dose: Infused Documented By: MATY Doxycycline Hyclate 100 mg/ (Sodium Chloride) 250 mls @ 166.67 mls/hr IV Q12H [facility] Last Infusion: 10/05/25 09:43 Dose: Infused Documented By: CAROL Vancomycin HCl 500 mg/ Sodium (Chloride) 110 mls @ 110 mls/hr IV Q8H [facility] Last Admin: 10/05/25 12:37 Dose: 110 mls/hr Documented By: CAROL Insulin Glargine (Insulin Glargine,Hum.Rec.Anlog 100 Unit/Ml 10 Ml Vial) 32 unit SUBCUT BEDTIME [facility] Last Admin: 10/04/25 22:17 Dose: 32 unit Documented By: MATY Insulin Human Lispro (Insulin Lispro 100 Unit/Ml 3 Ml Vial) 0 unit SUBCUT QIDACHS [facility]; Protocol Last Admin: 10/05/25 12:38 Dose: 4 unit Documented By: CAROL Levothyroxine Sodium (Levothyroxine Sodium 50 Mcg Tablet) 50 mcg PO DAILY@0600 [facility] Last Admin: 10/05/25 05:23 Dose: 50 mcg Documented By: MATY Magnesium Hydroxide (Milk Of Magnesia 30 Ml Oral.Susp) 30 ml PO DAILY PRN PRN Reason: Constipation Melatonin (Melatonin 3 Mg Tablet) 6 mg PO BEDTIME PRN PRN Reason: Insomnia Omeprazole (Omeprazole 20 Mg Capsule.Dr) 20 mg PO DAILY@0630 [facility] Last Admin: 10/05/25 05:23 Dose: 20 mg Documented By: MATY Pharmacy Consult (Consult Rx Vancomycin Dosing) 1 each MISCELLANE DAILY PRN PRN Reason: Consult order Polyethylene Glycol (Polyethylene Glycol 3350 17 Gm Powd.Pack) 17 gm PO DAILY [facility] Last Admin: 10/05/25 08:59 Dose: 17 gm Documented By: CAROL Senna (Sennosides 8.6 Mg Tablet) 17.2 mg PO BEDTIME [facility] Last Admin: 10/04/25 22:19 Dose: 17.2 mg Documented By: MATY Sodium Chloride (0.9 % Sodium Chloride Flush 3 Ml Syringe) [facility] Last Admin: 10/05/25 08:36 Dose: 3 ml Documented By: CAROL Tamsulosin HCl (Tamsulosin Hcl 0.4 Mg Capsule) 0.4 mg PO DAILY [facility] Last Admin: 10/05/25 08:57 Dose: 0.4 mg Documented By: CAROL Torsemide (Torsemide 20 Mg Tablet) 40 mg PO BID [facility]; Protocol Last Admin: 10/05/25 08:55 Dose: 40 mg Documented By: CAROL Labs 10/04/25 07:20 10/05/25 07:26 Labs: Laboratory Results - last 24 hr 10/04/25 10/04/25 10/05/25 16:04 19:52 02:50 Estim Creat Clear Calc Estimated GFR POC Glucose 73 242 H 79 10/05/25 10/05/25 10/05/25 07:12 07:26 11:02 Estim Creat Clear Calc 74.6 Estimated GFR 55 POC Glucose 114 226 H Microbiology Microbiology Results: Microbiology 10/03/25 19:47 Blood Culture - Preliminary Blood - Venous Streptococcus viridans group 10/04/25 11:25 Gram Stain - Final Sputum - Expectorated Sputum Culture - Preliminary Culture in progress. 10/03/25 Unknown Urine Culture - Final Urine clean catch - Clean Catch Midstream Escherichia coli 10/03/25 19:16 Blood Culture - Preliminary Blood - Venous No growth after 24 hours. Assessment and Plan (1) VINCENT (acute kidney injury): Status: Acute Plan d3, 65yo F with HFrEF with CardioMEMS in place, hypothyroidism, DM2, GERD, BPH, COPD/asthma, HLD, HTN, CAD s/p PCI x1, CKD3a presenting with cough x2d, found to have VINCENT, hyperglycemia, pneumonia, and UTI. GPC bacteremia. PNA with possible GPC bacteremia - continue ceftriaxone + doxycycline 10/03-, follow BCx [d/c vancomycin- growing Strep viridans, likely contaminant] , trend PCT UTI, villalta-sensitive E. coli - ceftriaxone 10/03- chronic HFrEF - continue carvedilol, torsemide - TTE 10/04/25: 1. Mildly dilated left ventricle with severely reduced LV ejection fraction 20-25% with suggestive of increased LV filling pressures 2. Mildly dilated left atrium 3. Cardiac valvular Dopplers within normal limits 4. Normal measured RV systolic pressure 5. No gross pericardial effusion - Cardiology consulted: start Entresto then consider adding Jardiance, needs outpt follow-up to discuss AICD if EF not improved VINCENT/CKD3 - Cr improved after IV fluids DM2 with acute hyperglycemia without DKA - A1c 9.5; basal-bolus insulin; has Endocrinology appt 10/14/25 DM neuropathy: gabapentin constipation: bowel regimen CAD, HLD: atorvastatin hypothyroidism: continue LT4 GERD: PPI BPH: tamsulosin mood disorder: aripiprazole VTE ppx: enoxaparin dispo: likely home tomorrow In my clinical judgment, the patient requires continued inpatient hospitalization for the following reasons: IV ABX Total time managing care of this patient today: 35 minutes. Quality Stroke Does the patient have a stroke diagnosis?: No Reason for No Anti-thrombotic by Day Two: N/A - Med Ordered VTE Prior VTE?: No VTE Risk Level:: Medical - moderate - high VTE Device Contraindication: N/A - Device Ordered VTE Drug Contraindication: N/A - Med Ordered
[2025-10-05 16:26] LABS: Glucose, Whole Blood 303 mg/dL (60-115)
[2025-10-05 20:34] LABS: Glucose, Whole Blood 332 mg/dL (60-115)
[2025-10-05] MEDS: Insulin Glargine,Hum.rec.anlog 100 UNIT/ML 10 ML VIAL 32 UNIT SUBCUT (21:58)
[2025-10-05] MEDS: Sacubitril/Valsartan 24/26 1 TAB TABLET PO (22:09)
[2025-10-06 03:05] VITALS: BP 108/82; PULSE 93; RESP 16; TEMP 36; O2SAT 95
[2025-10-06 05:24] VITALS: BMI 30.5
[2025-10-06 07:42] LABS: Glucose, Whole Blood 144 mg/dL (60-115)
[2025-10-06 08:00] VITALS: BP 119/73; PULSE 76; RESP 20; TEMP 36.5; O2SAT 95
[2025-10-06] MEDS: 0.9 % Sodium Chloride Flush 3 ML SYRINGE IVFLUSH (08:21)
[2025-10-06] MEDS: Sacubitril/Valsartan 24/26 1 TAB TABLET PO (08:27)
[2025-10-06 08:28] LABS: NT Pro B Type Natriuretic Pept 853.1 pg/mL (<300)
[2025-10-06] MEDS: calcium polycarbophiL TABLET 1 TAB PO (08:28)
[2025-10-06 08:48] LABS: Anion Gap 15 (12-20); Blood Urea Nitrogen 21 mg/dL (9-16); Calcium 8.6 mg/dL (8.4-10.2); Carbon Dioxide 22 mmol/L (22-29); Chloride 104 mmol/L (96-108); Creatinine Clr Calc Pharmacy 62.9; Estimated Glomerular Filt Rate 46; Magnesium 1.5 mg/dL (1.6-2.6); Potassium 4.1 mmol/L (3.3-5.1); Procalcitonin 0.06 ng/mL; Sodium 137 mmol/L (135-145)
[2025-10-06 11:00] LABS: Glucose, Whole Blood 260 mg/dL (60-115)
--- NOTE | 2025-10-06 11:08 | P.PNCA_ITS ---
Subjective Subjective Date of Service: 10/06/25 Principal diagnosis: Cardiomyopathy Interval history: Patient is feeling better planning for being discharged today. Did get Entresto yesterday. Creatinine has increased slightly to 1.53. Will follow closely Review of Systems Review of Systems Yes all other systems are reviewed and are negative Physical Exam Vital Signs: Last Vital Signs Temp 97.7 F 10/06/25 08:00 Pulse 76 10/06/25 08:00 Resp 20 10/06/25 08:00 BP 119/73 10/06/25 08:00 Pulse Ox 95 10/06/25 08:00 O2 Del Method Room Air 10/06/25 08:00 BMI result Body Mass Index 30.5 Const General: cooperative, comfortable, no acute distress, alert and awake Nutritional Appearance: average body habitus Orientation/consciousness: patient oriented x3 HEENT Head: Yes normocephalic and Yes atraumatic Neck Neck: Yes trachea midline, Yes supple and Yes no JVD (+AJR) Resp Effort & Inspection: normal respiratory effort Auscultation: wheezes Cardio Jugular venous distension: no JVD Palpation: abnormal PMI displaced PMI Rate: regular rate Rhythm: regular rhythm Heart sounds: S1 normal heart sound present, S2 normal heart sound present, no click, no gallops and no murmurs GI Auscultation: normal bowel sounds Skin General skin exam: no rashes or lesions noted Neuro General: patient oriented x3 and no focal motor deficits Extrem General: Yes no clubbing, cyanosis or edema Objective Labs and Meds 10/04/25 07:20 10/06/25 07:38 Lab results: Laboratory Results - last 24 hr 10/05/25 10/05/25 10/05/25 11:02 16:21 20:30 Sodium Potassium Chloride Carbon Dioxide Anion Gap BUN Creatinine Estim Creat Clear Calc Estimated GFR POC Glucose 226 H 303 H 332 H Random Glucose Calcium Magnesium NT-Pro-B Natriuret Pep Procalcitonin 10/06/25 10/06/25 07:38 10:40 Sodium 137 Potassium 4.1 Chloride 104 Carbon Dioxide 22 Anion Gap 15 BUN 21 H Creatinine 1.53 H Estim Creat Clear Calc 62.9 Estimated GFR 46 POC Glucose 144 H 260 H Random Glucose 140 H Calcium 8.6 Magnesium 1.5 L NT-Pro-B Natriuret Pep 853.1 H Procalcitonin 0.06 Progress Note: A&P Assessment and plan (1) Heart failure with reduced ejection fraction: Status: Acute Assessment and Plan: Longstanding severe cardiomyopathy with heart failure with reduced ejection fraction with question about compliance for follow up and treatment. Clinically appears to be euvolemic well compensated. Started on Entresto with acceptable bump in his creatinine. He is on carvedilol as high dose torsemide. Probably does not require such higher dose of torsemide and may need to be able to back off as outpatient. His BNP stable. Clinically no heart failure. Management of this discussed. Unsure as to why he has not still received a primary ICD. He wants to switch care locally to [place]. Will give him a follow up in 2 weeks time after blood work. Thank you for allowing me to partake in his care Time Spent With Patient Time: Total time managing care of this patient today ____ minutes. Progress Note: Quality Stroke Does the patient have a stroke diagnosis?: No Reason for No Anti-thrombotic by Day Two: N/A - Med Ordered Procedures Date of Service Date of Service: 10/06/25
[2025-10-06 12:00] VITALS: BP 122/63; PULSE 88; RESP 16; TEMP 36.1; O2SAT 95
--- NOTE | 2025-10-06 12:08 | W.MHC.F2F ---
Service Date Service Date: 10/06/25 Encounter Date of encounter: 10/06/25 Reasons for Services Signs and symptoms assessed: CHF Reason for penitentiary: diabetic teaching, monitoring of unstable blood sugar, medication management, medication treatment and teach disease management MD Overseeing Care: Cassandra Moses Homebound: Leaving the home is medically contraindicated at this time without the asist of a device and/or another person due th the listed conditions above and below. Reason homebound: weakness related to hospital stay Certification: Based on the above findings, I certify that this patient is confined to the home and needs intermittent penitentiary care, physical therapy and/or speech therapy, or continues to need occupational therapy. The patient is under my care, and I have initiated the establishment of the plan of care. The patient will be followed by a physician who will periodically review the plan of care. Time Spent With Patient Time: Total time managing care of this patient today ____ minutes.
--- NOTE | 2025-10-06 12:09 | PM.DS ---
DS: Providers Provider Date of Service: 10/06/25 Date of admission: 10/03/25 20:55 Date of discharge: 10/06/25 Primary care physician: Cassandra Moses PA-C Consults: 10/04/25 15:26 Consult to Cardiology Routine Consulting Provider: [facility] Reason for consultation: red ef DS: Diagnosis Discharge Diagnosis (1) Heart failure with reduced ejection fraction: Status: Acute (2) Insulin dependent type 2 diabetes mellitus: Status: Acute (3) Acute hyperglycemia: Status: Acute (4) VINCENT (acute kidney injury): Status: Acute (5) CKD (chronic kidney disease) stage 3, GFR 30-59 ml/min: Status: Acute (6) Pneumonia: Status: Acute (7) UTI (urinary tract infection): Status: Acute DS: Summary Hospital Course Hospital Course: From the history and physical by Maureen Fuentes on admission 10/03/25: 'Pt is a 65-year-old male with past medical history HFrEF S/P Cardiomems, hypothyroidism, IDDM II on Trulicity until 2 weeks ago, GERD, BPH, COPD/ asthma - nonsmoker exposed to second hand smoke not on home O2, HLD, HTN, CAD/ PCI X1 stent, osteomyelitis L big toe, Class I obesity, CKD 3a, presents to ED ambulatory with family with complaints of persistent cough and congestion X2 days with no recent travel or exposure to others with URI. Pt's blood glucose level 600 but no evidence of DKA. UA appears positive for UTI as well. Pt denies urinary tract symptoms. Pt also notes that he stopped the Trulicity 2 weeks ago due to constipation and has upcoming appt with inspector balance truing on Oct 14. Pt reports that wound on Left big toes is fully healed. Work up in the ED included CXR suggesting R basilar infiltrate. No leukocytosis or anemia noted. Viral studies for COVID, flu and RSV all negative. UA noted for nitrites, +1 LE, WBC 21-50 and 4+ bacteria. VBG , 7.37, 43, 73, 25. LA 1.8. Na 132. BG now 433 after regular insulin administered in ED. DDIMER pending. Pt is not currently on oxygen. Patient has a prolonged QTC on EKG. Patient is started on ceftriaxone azithromycin in the ED and changed to ceftriaxone and doxycycline noting QTC on EKG. Blood cultures and urine culture pending.' 65yo F with HFrEF with CardioMEMS in place, hypothyroidism, DM2, GERD, BPH, COPD/asthma, HLD, HTN, CAD s/p PCI x1, CKD3a presenting with cough x2d, found to have VINCENT, hyperglycemia, pneumonia, and UTI. Hospital course by problem: PNA with possible GPC bacteremia - treated with 3d of ceftriaxone + doxycycline with improvement. BCx grew Strep viridans, a contaminant. PCT low. He was discharged home with 4d of cefuroxime + doxycycline. chronic HFrEF - continued carvedilol, torsemide; did not decompensate during the admission - TTE 10/04/25: 1. Mildly dilated left ventricle with severely reduced LV ejection fraction 20-25% with suggestive of increased LV filling pressures 2. Mildly dilated left atrium 3. Cardiac valvular Dopplers within normal limits 4. Normal measured RV systolic pressure 5. No gross pericardial effusion - Cardiology consulted: started Entresto 24/26 mg bid. SCr went up from 1.3 to 1.53. To repeat BMP in 1 week and follow up with [facility] Cardiology. Will consider adding Jardiance and perhaps decreasing diuretic. Will also discuss AICD if EF does hot improve. VINCENT/CKD3 - Cr initially improved after IV fluids then slightly teetee after Entresto initiation; to recheck BMP in 1 week DM2 with acute hyperglycemia without DKA - A1c 9.5; basal-bolus insulin; has Endocrinology appt 10/14/25 He was discharged home with VNA services. Time Attestation Discharge Coordination Time (in mins): 45 Quality: Safe Use of Opioids Does Pt have an Active Cancer Diagnosis on the Problem List?: No Quality: Stroke Does the patient have a stroke diagnosis?: No Physical Exam Vital Signs: Vital Signs: Last Vital Signs Temp 96.9 F 10/06/25 12:00 Pulse 88 10/06/25 12:00 Resp 16 10/06/25 12:00 BP 122/63 10/06/25 12:00 Pulse Ox 95 10/06/25 12:00 O2 Del Method Room Air 10/06/25 12:00 BMI result Body Mass Index 30.5 Gen: in no acute distress HEENT: sclera anicteric, moist mucus membranes Neck: supple Lungs: clear to auscultation bilaterally Heart: regular rate and rhythm, no murmurs Abd: soft, non-tender, non-distended Ext: no edema Skin: warm/well-perfused Neuro: alert and oriented x3, no focal findings Psych: appropriate affect DS: Data Data Completed and Pending Completed studies during hospitalization [Text1]: Laboratory Results WBC 8.8 X10*3/uL (4.8-10.8) 10/04/25 07:20 RBC 4.76 X10*6/uL (4.60-5.80) 10/04/25 07:20 Hgb 13.1 g/dl (14.0-18.0) L 10/04/25 07:20 Hct 40.8 % (42.0-52.0) L 10/04/25 07:20 MCV 85.7 fL (80.0-98.0) 10/04/25 07:20 MCH 27.5 pg (27.0-33.0) 10/04/25 07:20 MCHC 32.1 g/dl (31.0-36.0) 10/04/25 07:20 RDW 13.9 % (11.0-16.0) 10/04/25 07:20 Plt Count 320 X10*3/uL (160-400) 10/04/25 07:20 MPV 9.9 fL (9.4-12.4) 10/04/25 07:20 Immature Gran % (Auto) 0.2 % (0.0-0.4) 10/04/25 07:20 Neut % (Auto) 49.8 % (45-73) 10/04/25 07:20 Lymph % (Auto) 29.7 % (20-40) 10/04/25 07:20 [place] % (Auto) 6.9 % (2-11) 10/04/25 07:20 Eos % (Auto) 12.6 % (0-4) H 10/04/25 07:20 Baso % (Auto) 0.8 % (0-2) 10/04/25 07:20 Lymph # (Auto) 2.6 X10*3/uL (1.2-4.9) 10/04/25 07:20 [place] # (Auto) 0.6 X10*3/uL (0.1-1.2) 10/04/25 07:20 Eos # (Auto) 1.1 X10*3/uL (0.0-0.4) H 10/04/25 07:20 Baso # (Auto) 0.1 X10*3/uL (0.0-0.2) 10/04/25 07:20 Abs Immat Gran (auto) 0.02 X10*3/uL (0.00-0.03) 10/04/25 07:20 Absolute Neuts (auto) 4.4 x10*3/uL (2.0-8.3) 10/04/25 07:20 Absolute Nucleated RBC 0.000 X10*3/uL (0.0-0.012) 10/04/25 07:20 Nucleated RBC % (auto) 0.0 /100WBC (0.0-0.2) 10/04/25 07:20 D-Dimer High Sensitivty < 150 NG/ML 10/03/25 21:23 VBG pH 7.37 (7.32-7.43) 10/03/25 15:36 VBG pCO2 43 mmHg 10/03/25 15:36 VBG pO2 73 mmHg 10/03/25 15:36 VBG HCO3 25 mmol/L (22-26) 10/03/25 15:36 VBG O2 Saturation 91.0 % 10/03/25 15:36 VBG Base Excess -0.3 mmol/L 10/03/25 15:36 Sodium 137 mmol/L (135-145) 10/06/25 07:38 Potassium 4.1 mmol/L (3.3-5.1) 10/06/25 07:38 Chloride 104 mmol/L (96-108) 10/06/25 07:38 Carbon Dioxide 22 mmol/L (22-29) 10/06/25 07:38 Anion Gap 15 (12-20) 10/06/25 07:38 BUN 21 mg/dL (9-16) H 10/06/25 07:38 Creatinine 1.53 mg/dL (0.5-1.4) H 10/06/25 07:38 Estim Creat Clear Calc 62.9 10/06/25 07:38 Estimated GFR 46 10/06/25 07:38 POC Glucose 260 mg/dL (60-115) H 10/06/25 10:40 Random Glucose 140 mg/dL (60-115) H 10/06/25 07:38 Estimat Average Glucose 226 mg/dL 10/04/25 07:20 Hemoglobin A1c % 9.5 % (<6.0) H 10/04/25 07:20 Lactic Acid 1.8 mmol/L (0.5-2.0) 10/03/25 19:16 Calcium 8.6 mg/dL (8.4-10.2) 10/06/25 07:38 Magnesium 1.5 mg/dL (1.6-2.6) L 10/06/25 07:38 Total Bilirubin 0.2 mg/dL (0.0-1.0) 10/04/25 07:20 Direct Bilirubin < 0.2 mg/dL (0.0-0.5) 10/03/25 14:37 AST 17 U/L (5-37) 10/04/25 07:20 ALT 17 U/L (0-40) 10/04/25 07:20 Alkaline Phosphatase 115 U/L (39-117) 10/04/25 07:20 Troponin I High Sens 11.1 ng/L (<3.5-35.0) 10/03/25 14:37 NT-Pro-B Natriuret Pep 853.1 pg/mL (<300) H 10/06/25 07:38 Total Protein 6.8 g/dL (6.5-8.0) 10/04/25 07:20 Albumin 3.5 g/dL (3.5-5.0) 10/04/25 07:20 Lipase 20 U/L (8-78) 10/03/25 14:37 Beta-Hydroxybutyrate 0.10 mmol/L (0.02-0.27) 10/03/25 14:37 Procalcitonin 0.06 ng/mL 10/06/25 07:38 TSH 0.64 uIU/mL (0.32-4.0) 10/03/25 14:37 Urine Color Yellow 10/03/25 17:49 Urine Appearance Clear 10/03/25 17:49 Urine pH 6.0 (5.0-9.0) 10/03/25 17:49 Ur Specific [place] >= 1.030 (1.005-1.025) H 10/03/25 17:49 Urine Protein Negative mg/dL (Neg-Trace) 10/03/25 17:49 Urine Glucose (UA) >=1000 mg/dL (Negative) H 10/03/25 17:49 Urine Ketones Negative mg/dL (Negative) 10/03/25 17:49 Urine Blood Negative (Negative) 10/03/25 17:49 Urine Nitrite Positive (Negative) H 10/03/25 17:49 Ur Leukocyte Esterase Small (1+) (Negative) H 10/03/25 17:49 Urine RBC 0-2 /HPF (0-2) 10/03/25 17:49 Urine WBC 21-50 /HPF (0-5) 10/03/25 17:49 Ur Squamous Epith Cells 0-2 /HPF (0-2) 10/03/25 17:49 Urine Bacteria 4+ (None Seen) 10/03/25 17:49 Hyaline Casts 0-2 /LPF (0-2) 10/03/25 17:49 Influenza Type A (PCR) NEGATIVE (Negative) 10/03/25 14:37 Influenza Type B (PCR) NEGATIVE (Negative) 10/03/25 14:37 RSV RNA Qual (PCR) NEGATIVE (Negative) 10/03/25 14:37 SARS-CoV-2 RNA (RT-PCR) NEGATIVE (Negative) 10/03/25 14:37 Discharge Plan Discharge Anticipated Discharge Date/Time: 10/06/25 12:01 Patient Disposition: Home Health Service Discharge Diagnosis: hyperglycemia pneumonia UTI chronic heart failure with reduced EF Referrals: Cassandra Moses PA-C [Primary Care Provider, Internal Medicine] - 1 Week Leo Guzman MD [Physician, Cardiology] - 2 Weeks Discharge Medications: New melatonin 3 mg Tablet 6 mg PO BEDTIME PRN (Reason: Insomnia) Qty: 60 0RF doxycycline monohydrate 100 mg Capsule 100 mg PO Q12H Qty: 8 0RF cefuroxime axetil 500 mg Tablet 500 mg PO BID Qty: 8 0RF sacubitril-valsartan [Entresto] 24-26 mg Tablet 1 tab PO BID Qty: 60 0RF Protocol: Hold for SBP< HOLD for SBP < : 90 Continued carvedilol 12.5 mg Tablet 12.5 mg PO BID Rx Instructions: must administer with a meal/food tamsulosin 0.4 mg Capsule 0.4 mg PO DAILY pantoprazole 40 mg Tablet,Delayed Release (Dr/Ec) 40 mg PO DAILY@0630 levothyroxine 50 mcg Capsule 50 mcg PO DAILY@0600 insulin degludec [Tresiba FlexTouch U-100] 100 unit/mL (3 mL) Insulin Pen 32 unit SUBCUT DAILY Trulicity 1.5 mg/0.5 mL pen injector 1.5 mg subcut TU insulin lispro [Humalog KwikPen Insulin] 100 unit/mL insulin pen See Protocol SUBCUT TIDAC Protocol: Insulin Correction Scale Less than or equal to 110 ---- Give (units): 0 111 to 150 Give (units): 0 151 to 200 Give (units): 2 201 to 250 Give (units): 4 251 to 300 Give (units): 6 301 to 350 Give (units): 8 Greater than 350 Give (units): 10 Call MD if Blood Glucose > : 350 gabapentin 100 mg capsule 100 mg PO TID aripiprazole 2 mg Tablet 2 mg PO DAILY torsemide 20 mg tablet 40 mg PO BID albuterol sulfate 2.5 mg /3 mL (0.083 %) solution for nebulization 2.5 mg Q6H PRN (Reason: Shortness Of Breath Or Wheezing) rosuvastatin 40 mg tablet 40 mg PO BEDTIME Discharge Orders: Discharge Order (Routine); Ordered 10/06/25 Ordered By: Rae Owens Diet: Diabetic diet Activity on Discharge: As tolerated Stand Alone Forms: Patient Portal Discharge page Print Language: Syriac Other Ambulatory Orders: Basic Metabolic Panel (Routine) Timeframe: 1 Week Facility: [facility] - Location: Laboratory Ordered By: Rae Owens Care Plan Goals: recover from infection heart health Health Concerns: hyperglycemia pneumonia UTI chronic heart failure with reduced EF Plan of Treatment: cefuroxime 500 mg twice daily PLUS doxycycline 100 mg twice daily for 4 days start Entresto 24/26 mg twice daily; recheck BMP in 1 week; follow up with Dr Guzman from [facility] Cardiology in 2 weeks Please follow up with your primary care doctor within 1 week. Return to the hospital if you experience recurrent or worsening symptoms. Assessment: See Discharge Summary.
--- NOTE | 2025-10-06 13:06 | MHC.CM.PN ---
Pt. has been medically cleared to [place], he will go home via private transport, and have home care services from [facility].
--- NOTE | 2025-10-06 13:27 | PC.NURSE ---
Pt given written discharge instructions. Shama assisted with interpretation. Medication instructions, including insulin sliding scale, reviewed. Pt and spouse verbalized understanding to follow up with Primary Physician and cardiology. Pt escorted via wheelchair to discharge lounge. Written instructions accidentally forgetten in the room; they were left at the front end manager in case they came back.
== END 2025-10-06 13:35 | disposition home health service (06) | DRG 194 ==
LOC: HO.ED 20:32 → HO.EDOVER 21:04 → HO.IMC 10-04 03:24
PROVIDERS: Hospitalist; Physician Assistant; Admitting Provider Nurse Practitioner Family; Emergency Provider Emergency Medicine Emergency Medical Services; PCP Physician Assistant; Visit Provider Family Medicine
DX: J18.9 Pneumonia, unspecified organism (principal); I13.0 Hypertensive heart and chronic kidney disease with heart failure and stage 1 through stage 4 chronic kidney disease, or unspecified chronic kidney disease; I50.22 Chronic systolic (congestive) heart failure; Z95.811 Presence of heart assist device; N39.0 Urinary tract infection, site not specified; J44.0 Chronic obstructive pulmonary disease with (acute) lower respiratory infection; E11.22 Type 2 diabetes mellitus with diabetic chronic kidney disease; N18.31 Chronic kidney disease, stage 3a; E11.65 Type 2 diabetes mellitus with hyperglycemia; E11.40 Type 2 diabetes mellitus with diabetic neuropathy, unspecified; K21.9 Gastro-esophageal reflux disease without esophagitis; N40.0 Benign prostatic hyperplasia without lower urinary tract symptoms; B96.20 Unspecified Escherichia coli [E. coli] as the cause of diseases classified elsewhere; E03.9 Hypothyroidism, unspecified; K59.00 Constipation, unspecified; F39 Unspecified mood [affective] disorder; Z20.822 Contact with and (suspected) exposure to COVID-19; Z79.4 Long term (current) use of insulin; Z79.85 Long-term (current) use of injectable non-insulin antidiabetic drugs; Z79.890 Hormone replacement therapy; Z79.899 Other long term (current) drug therapy
CPT/HCPCS: 36415; 71046; 80048; 80053; 80076; 81001; 82010; 82565; 82803; 82947; 83036; 83605; 83690; 83735; 83880; 84145; 84443; 84484; 85025; 85379; 87040; 87070; 87077; 87086; 87088; 87186; 87205; 87637; 93005; 93306; 94640; 97161; 99285; J0456; J0696; J1271; J1650; J3373; J3374

== ENCOUNTER → 2025-10-03 14:17 | Outpatient (BNV) | payer OTHER, SELFPAY | PROVIDERS: Admitting Provider Nurse Practitioner Family; Emergency Provider Emergency Medicine Emergency Medical Services; PCP Physician Assistant; Visit Provider Internal Medicine Cardiovascular Disease | DX: I51.7 Cardiomegaly (principal) | CPT/HCPCS: 93010 ==

== ENCOUNTER → 2025-10-03 14:17 | Outpatient (BNV) | payer OTHER, SELFPAY | PROVIDERS: PCP Physician Assistant; Visit Provider Radiology Diagnostic Radiology | DX: R05.9 Cough, unspecified (principal) | CPT/HCPCS: 71046 ==

== ENCOUNTER 2025-10-03 20:55 | Outpatient (BNV) | payer OTHER, SELFPAY | END 2025-10-04 08:49 | PROVIDERS: Admitting Provider Nurse Practitioner Family; Emergency Provider Emergency Medicine Emergency Medical Services; PCP Physician Assistant; Visit Provider Internal Medicine Cardiovascular Disease | DX: I51.7 Cardiomegaly (principal); I50.9 Heart failure, unspecified | CPT/HCPCS: 93010; 93306 ==

== ENCOUNTER → 2025-10-03 20:55 | Outpatient (BNV) | payer OTHER, SELFPAY | PROVIDERS: Admitting Provider Nurse Practitioner Family; Emergency Provider Emergency Medicine Emergency Medical Services; PCP Physician Assistant; Visit Provider Internal Medicine Cardiovascular Disease | DX: I50.20 Unspecified systolic (congestive) heart failure (principal) | CPT/HCPCS: 99233 ==

== ENCOUNTER → 2025-10-03 20:55 | Outpatient (BNV) | payer OTHER, SELFPAY | PROVIDERS: Admitting Provider Nurse Practitioner Family; Emergency Provider Emergency Medicine Emergency Medical Services; PCP Physician Assistant; Visit Provider Nurse Practitioner Family | DX: J18.9 Pneumonia, unspecified organism (principal); R73.9 Hyperglycemia, unspecified; N30.00 Acute cystitis without hematuria; N17.9 Acute kidney failure, unspecified | CPT/HCPCS: 99223; 99232 ==

== ENCOUNTER 2025-10-15 14:07 | Outpatient (REF) | payer OTHER, SELFPAY ==
--- OUTSIDE RECORDS SUMMARY | 2024-04-02 05:49 | XMS_ITS | Continuity of Care Document ---
Author Organization [facility] Address [address] [address] Phone Care Team Providers Care Avionics Electronics Technician Name Role Phone Shelly Horvath OT Unavailable Unavailable Advance Directives Directive Yes / No Effective Date File Name No Information Encounters Encounter Description Practice Location Reason(s) For Visit Diagnoses Date Provider [facility], [address] [address], [place], [place], [id number], [place] tel:[phone] [facility] No Information 2023 Alexandru Bravo. [address] [place], [place], [id number], [place]. tel:[phone] Family History Family Member Type Diagnosis Age At Onset No Information Payers Payer name Insurance type Covered democrat ID Authoriza tion(s) No Information Social History Type Description Quantity Date Captured Comments Sex Male Smoking Status No Information Chief Complaint And Reason For Visit No Information History Of Present Illness Encounter Date Complaint History Of Prese nt Illness No Information Instructions Date Instruction Additional Infor mation No Information Assessments Type Assessment Date No Information
[2025-10-15 14:39] LABS: Anion Gap 14 (12-20); Blood Urea Nitrogen 34 mg/dL (9-16); Calcium 9.2 mg/dL (8.4-10.2); Carbon Dioxide 28 mmol/L (22-29); Chloride 104 mmol/L (96-108); Estimated Glomerular Filt Rate 38; Potassium 3.9 mmol/L (3.3-5.1); Sodium 142 mmol/L (135-145)
--- OUTSIDE RECORDS SUMMARY | 2025-10-15 15:42 | XMS_ITS | Clinical Summary ---
Author Organization [facility] Address [address] [address] Phone Care Team Providers Care Quality Process Lead Name Role Phone Unavailable Primary Care Provider [...] to complete [place] [id number] UHC Medicare UHC Medicare Medicaid [place]
--- OUTSIDE RECORDS SUMMARY | 2025-10-15 15:42 | XMS_ITS | Clinical Summary ---
Author Organization [facility] Address [address] [place] [address] Phone Care Team Providers Care Ham Trimmer Name Role Phone Cassandra Moses Primary Care [...] Description 08/26/2025 12:30 PM EDT Ancillary Procedure [facility] [address] [place] [address] Heart failure ([facility] V24, [facility] V28) from Last 3 Months Medical History Medical History Date Comments Diabetes mellitus ([facility] V24, [facility] V28) Social History Tobacco Use Types Packs/Day [...] (08/26/2025 2:06 PM EDT) Left Atrium Minor Ney 5.4 cm CV PACS Left Atrium Major Ney 5.3 cm CV PACS LA Area Sys [...] S' 12 cm/s CV PACS RA Major Ney 4.8 cm CV PACS RA Major Ney Index 2.1 2.1 - 2.7 cm/m2 CV [...] system for comparison. Spoke with THAD Yanes . I asked her to leave a message [...] mg/dL LAB CHEMISTRY METHOD 11/16/2024 4:40 AM [facility] Triglycerides 189(H) 0 - 150 mg/dL LAB CHEMISTRY METHOD 11/16/2024 4:40 AM EST [facility] HDL 35(L) >=40 mg/dL LAB CHEMISTRY METHOD 11/16/2024 4:40 AM EST [facility] LDL Calculated 69 0 - 100 mg/dL LAB CHEMISTRY METHOD 11/16/2024 4:40 AM [facility] VLDL Cholesterol Rad 37.8 mg/dL LAB CHEMISTRY METHOD 11/16/2024 4:40 AM [facility] Non HDL Chol. (LDL+VLDL) 107 <145 mg/dL LAB CHEMISTRY METHOD 11/16/2024 4:40 AM [facility] Chol/HDL Ratio 4.1 0.0 - 4.4 LAB CHEMISTRY METHOD 11/16/2024 4:40 AM [facility] Blood Venous blood specimen / Unknown Venipuncture / Unknown 11/16/2024 3:55 AM EST 11/16/2024 3:59 AM EST Nan BOALNOS LAB BLOOD ORDERABLES Fi nal Result [facility] [address] [place] [address], * (ABNORMAL) Basic metabolic panel (11/16/2024 3:55 AM EST) Sodium 138 133 - 145 mmol/L LAB CHEMISTRY METHOD 11/16/2024 4:39 AM [facility] Potassium 3.7 3.5 - 5.5 mmol/L LAB CHEMISTRY METHOD 11/16/2024 4:39 AM [facility] Chloride 107 96 - 110 mmol/L LAB CHEMISTRY METHOD 11/16/2024 4:39 AM [facility] CO2 24 21 - 32 mmol/L LAB CHEMISTRY METHOD 11/16/2024 4:39 AM [facility] Anion Gap 7 3 - 11 LAB CHEMISTRY METHOD 11/16/2024 4:39 AM [facility] Glucose 157(H) 70 - 100 mg/dL LAB CHEMISTRY METHOD 11/16/2024 4:39 AM [facility] BUN 23 5 - 25 mg/dL LAB CHEMISTRY METHOD 11/16/2024 4:39 AM [facility] Creatinine 1.58(H) 0.70 - 1.30 mg/dL LAB CHEMISTRY METHOD 11/16/2024 4:39 AM [facility] eGFR 49(L) >=60 mL/min/1. 73m2 LAB CHEMISTRY METHOD 11/16/2024 4:39 AM EST [facility] Comment:Calculation based on the Chronic Kidney Disease Epidemiology Collaboration (CKD-EPI) equation refit without adjustment for race. BUN/Creatinine Ratio 14.6 LAB CHEMISTRY METHOD 11/16/2024 4:39 AM EST [facility] Calcium 8.2(L) 8.5 - 10.5 mg/dL LAB CHEMISTRY METHOD 11/16/2024 4:39 AM EST [facility] Blood Venous blood specimen / Unknown Venipuncture / Unknown 11/16/2024 3:55 AM EST 11/16/2024 3:59 AM EST us Antonio Doss MD LAB BLOOD ORDERABLES Final Res ult Performing Organization Address City/[facility]/ZIP Co de Phone Number [facility] [address] [place] [address], [place] [phone] * (ABNORMAL) Hemoglobin A1c (11/15/2024 1:54 PM EST) Hemoglobin A1C 13.5(H) <6.5 % LAB CHEMISTRY METHOD 11/16/2024 1:32 PM EST [facility] Mean Bld Glu Estim. 341 mg/dL LAB CHEMISTRY METHOD 11/16/2024 1:32 PM EST [facility] Blood Venous blood specimen / Unknown Venipuncture / Unknown 11/15/2024 1:54 PM EST 11/15/2024 2:08 PM EST us Nan BOLANOS LAB BLOOD ORDERABLES Fi nal Result [facility] [address] [place] [address], [place] [phone] from Last 3 Months or Most Recently Relevant to Health Maintenance [place] [address] [place] [address] [employer] Member Subscriber Plan / Payer (Ef fective 2025-Present) Name:Yanick Arita Relation to Subscriber:Self Name:Yanick Arita Payer ID:[id number] Group ID:[id number] Type:Not on file Address: [place] [address] [address] [phone] Advance Directives * Full Code - Default [...] currently active code status orders. Care Teams Ham Trimmer Relationship Specialty Start Date End Date Cassandra Moses PA [address] [place] [address] PCP - General 07/12/22
== END 2025-10-15 14:08 | disposition home or self-care (01) ==
LOC: HO.HVNA 14:07
PROVIDERS: PCP Internal Medicine Cardiovascular Disease; Visit Provider Physician Assistant
DX: E11.65 Type 2 diabetes mellitus with hyperglycemia (principal)
CPT/HCPCS: 36415; 80048

== ENCOUNTER 2025-10-16 14:15 | Emergency (ER) | payer OTHER, SELFPAY ==
--- OUTSIDE RECORDS SUMMARY | 2024-04-02 05:49 | XMS_ITS | Continuity of Care Document ---
Author Organization [facility] Address [address] [address] Phone Care Team Providers Care Real Estate Intern Name Role Phone Shelly Horvath OT Unavailable Unavailable Advance Directives Directive Yes / No Effective Date File Name No Information Encounters Encounter Description Practice Location Reason(s) For Visit Diagnoses Date Provider [facility], [address] [address], [place], [place], [id number], [place] tel:[phone] [facility] No Information 2023 Alexandru Bravo. [address] [place], [id number], [place]. tel:[phone] Family History Family Member Type Diagnosis Age At Onset No Information Payers Payer name Insurance type Covered republican ID Authoriza tion(s) No Information Social History Type Description Quantity Date Captured Comments Sex Male Smoking Status No Information Chief Complaint And Reason For Visit No Information History Of Present Illness Encounter Date Complaint History Of Prese nt Illness No Information Instructions Date Instruction Additional Infor mation No Information Assessments Type Assessment Date No Information
--- NOTE | ~2025-10-16 | XR_ITS ---
CLINICAL HISTORY: cough 1 view chest x-ray Comparison: CR - XR CHEST 2V - 10/03/25 14:42 EST Findings: The lungs are clear. Normal size heart. 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 No acute fracture. IMPRESSION: 1. 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 2. No acute cardiopulmonary findings. This document has been electronically signed by: Luciano Pena MD on 10/16/2025 17:12:12
--- NOTE | 2025-10-16 14:22 | ECG_ITS ---
Test Reason : CP Blood Pressure : */* mmHG Vent. Rate : 80 BPM Atrial Rate : 80 BPM P-R Int : 174 ms QRS Dur : 124 ms QT Int : 430 ms P-R-T Axes : 63 -27 32 degrees QTcB Int : 495 ms Sinus rhythm with frequent Premature ventricular complexes Non-specific intra-ventricular conduction delay Minimal voltage criteria for LVH, may be normal variant ( Almira product ) Borderline ECG When compared with ECG of 04-Oct-2025 08:49, Fusion complexes are no longer Present Nonspecific T wave abnormality has replaced inverted T waves in Lateral leads Referred By: Generic ED Physician Electronically Signed By: Claudio Ambriz
[2025-10-16 14:29] VITALS: BP 129/73; BP 132/84; PULSE 77; PULSE 96; RESP 20; TEMP 36.6; O2SAT 96; BMI 29.5
[2025-10-16 14:34] LABS: Glucose, Whole Blood > 600 mg/dL (60-115)
--- NOTE | 2025-10-16 14:37 | ED.GENADULT ---
HPI - General Adult General Chief complaint: Chest Pain Stated complaint: HYPERGLYCEMIA HI ,CP PER EMS Time Seen by Provider: 10/16/25 14:37 History of Present Illness ED Provider: Codie CABALLERO narrative: The patient is a 65-year-old male with a history of congestive heart failure and type 2 diabetes on Trulicity. The patient was hospitalized recently from October 03 through October 06. he had presented with coughing and congestion and generalized malaise. His blood sugar was high in the 600 range. There was a question of pneumonia on his chest x-ray. He was admitted to the hospital after receiving antibiotics. The patient says that when he left the hospital on October 06 he was still doing a lot of coughing. The coughing has persisted as has a lot of nasal congestion. The patient claims that he is taking his medication including his Trulicity and insulin. the patient had outpatient labs drawn yesterday that showed a creatinine of 1.79 and a BUN of 34. His blood sugar was 230. Today apparently his blood sugar monitor registered high. He called somewhat about this, possibly a friend and explained that his blood sugar was high. He was advised to go to the hospital. He did not want to go to the hospital but ultimately the friend called an ambulance for the patient and he was brought to the hospital. The patient complains of chronic coughing, chronic nasal discharge, and chronic chest pain. Related Data Home Medications ?Medication ?Instructions ?Recorded ?Confirmed carvedilol 12.5 mg tablet 12.5 mg PO BID 03/29/25 10/04/25 insulin degludec 100 unit/mL (3 32 unit subcut DAILY 03/29/25 10/04/25 mL) subcutaneous pen (Tresiba FlexTouch U-100 insulin) levothyroxine 50 mcg capsule 50 mcg PO DAILY@0600 03/29/25 10/04/25 pantoprazole 40 mg tablet,delayed 40 mg PO DAILY@0603/29/25 10/04/25 release tamsulosin 0.4 mg capsule 0.4 mg PO DAILY 03/29/25 10/04/25 dulaglutide 1.5 mg/0.5 mL 1.5 mg subcut TU 05/19/25 10/04/25 subcutaneous pen injector (Trulicity) insulin lispro 100 unit/mL See Protocol subcut TIDAC 05/19/25 10/04/25 subcutaneous pen (Humalog KwikPen (U-100) Insulin) aripiprazole 2 mg tablet 2 mg PO DAILY 05/20/25 10/04/25 gabapentin 100 mg capsule 100 mg PO TID 05/20/25 10/04/25 albuterol sulfate 2.5 mg/3 mL 2.5 mg Q6H PRN Shortness Of Breath 10/04/25 10/04/25 (0.083 %) solution for nebulization Or Wheezing rosuvastatin 40 mg tablet 40 mg PO BEDTIME 10/04/25 10/04/25 torsemide 20 mg tablet 40 mg PO BID 10/04/25 10/04/25 Previous Rx's ?Medication ?Instructions ?Recorded cefuroxime axetil 500 mg tablet 500 mg PO BID #8 tabs 10/06/25 doxycycline monohydrate 100 mg 100 mg PO Q12H #8 caps 10/06/25 capsule melatonin 3 mg tablet 6 mg (2 x 3 mg) PO BEDTIME PRN 10/06/25 Insomnia #60 tabs sacubitril 24 mg-valsartan 26 mg 1 tab PO BID #60 tabs 10/06/25 tablet (Entresto) albuterol sulfate 2.5 mg/3 mL 2.5 mg (3 mL) inhalation Q4-6H PRN 10/16/25 (0.083 %) solution for nebulization shortness of breath or wheezing #90 mL Allergies Allergy/AdvReac Type Severity Reaction Status Date / Time No Known Drug Allergies Allergy Unknown Verified 10/16/25 14:36 Review of Systems Review of Systems: Yes all other systems are reviewed and are negative [facility] Past Medical History Medical History CKD (chronic kidney disease) stage 3, GFR 30-59 ml/min CKD (chronic kidney disease) stage 3, GFR 30-59 ml/min Left leg swelling Skin ulcer of left great toe Osteomyelitis of great toe of left foot Cellulitis of left leg PAD (peripheral artery disease) Insulin dependent type 2 diabetes mellitus Osteomyelitis Class 1 obesity Social History Social History Household Members: Spouse Housing: Apartment Do you presently have visiting nurse or other home services: Yes ([employer]IST[employer], daily) Comment: refused bed alarm Patient Tobacco Use Status: Never used Tobacco Smoked in Last 30 Days: No e-Cigarette/Vaping Use: Never Used Advance Directives: No Advance Directives Information Provided: No service: No Physical Exam ED Vital Signs: Vital Signs - 24 hr 10/16/25 14:29 10/16/25 14:43 10/16/25 16:18 Temperature 98 F Pulse Rate 77 85 85 Respiratory Rate 20 18 16 Blood Pressure 132/84 142/91 H Pulse Oximetry 96 99 Oxygen Delivery Method Room Air 10/16/25 16:22 Temperature Pulse Rate 76 Respiratory Rate 18 Blood Pressure 154/89 H Pulse Oximetry 99 Oxygen Delivery Method Room Air BMI result Body Mass Index 29.5 Const Other: The patient is awake and alert. He seemed to have a runny nose and was sneezing and coughing with some frequency. He did not seem short of breath. He did not appear in pain or seem otherwise acutely ill. Orientation/consciousness: patient oriented x3 HENMT Other: The face is symmetrical. Mucous membranes moist. Eyes Other: Pupils are round equal, conjunctivae are clear, extraocular movements intact Neck Neck: Yes normal visual inspection, Yes full ROM, Yes no lymphadenopathy, Yes no meningeal signs and Yes no JVD Resp Other: no increased work of breathing. The patient had inspiratory and expiratory wheezes bilaterally. He did not show any signs of respiratory distress however. Cardio Rate: regular rate Rhythm: regular rhythm Heart sounds: S1 normal heart sound present and S2 normal heart sound present GI Other: Abdomen is soft and nontender Skin Other: The skin is dry and unremarkable Neuro General: patient oriented x3, tone normal, moves all extremities, no meningeal signs, no focal motor deficits and CN's II-XI intact bilaterally Extrem Other: There is no calf swelling or tenderness. No asymmetry. No peripheral edema. Medications Administered Generic Name Dose Route Start Last Admin Trade Name Freq PRN Reason Stop Dose Admin Lactated Ringer's 1,000 mls @ 999 mls/hr 10/16/25 17:15 10/16/25 17:44 Lr IV 10/16/25 18:15 999 mls/hr .Q1H1M ESTHER Administration Discontinued Medications Generic Name Dose Route Start Last Admin Trade Name Freq PRN Reason Stop Dose Admin Albuterol/Ipratropium 3 ml 10/16/25 16:03 10/16/25 16:17 Albuterol/Iprat 2.5/0.5mg 3 Ml Ampul.Neb INHALE 10/16/25 16:04 3 ml ONCE ONE Administration Sodium Chloride 1,000 mls @ 999 mls/hr 10/16/25 14:45 10/16/25 16:33 Ns IV 10/16/25 15:45 Infused .Q1H1M ESTHER Infusion Sodium Chloride 1,000 mls @ 999 mls/hr 10/16/25 16:15 10/16/25 17:42 Ns IV 10/16/25 17:15 Infused .Q1H1M ESTHER Infusion Insulin Human Lispro 10 unit 10/16/25 16:06 10/16/25 16:13 Insulin Lispro 100 Unit/Ml 3 Ml Vial SUBCUT 10/16/25 16:07 10 unit ONCE ONE Administration Medical Decision Making Medical Decision Making [facility] Narrative: The patient is a 65-year-old male with a history of type 2 diabetes who was on a long-acting insulin as well as short-acting insulin. He says that he does not take Trulicity because he found it had unpleasant side effects. He was recently in the hospital for hyperglycemia. He presents today with a blood sugar that read high at home. Yesterday the patient had had outpatient blood work that showed a blood sugar of 230. Today the patient's blood sugar is 500. The patient seems to have some lingering symptoms of an upper respiratory infection but he does not seem acutely ill otherwise. He has a an unremarkable chest X-ray. His CBC shows a normal white count and differential. Aside from his hyperglycemia his metabolic panel shows what seems to be fairly stable chronic renal insufficiency. The patient had wheezes on exam but no other concerning findings on exam. He had no specific complaints in the emergency department. The patient was given IV fluids. He was also given a dose of lispro insulin. He was given a total of 3 L of crystalloid. He will be discharged with instructions to make sure that he is very compliant with his insulin regimen. He should follow up soon with his PCP at the [facility]. and also with the [facility]. He should return if worse. Lab Data 10/16/25 15:40 10/16/25 15:40 Labs: Lab Results 10/16/25 10/16/25 10/16/25 Range/Units 14:26 15:04 15:40 WBC 7.6 (4.8-10.8) X10*3/uL RBC 4.37 L (4.60-5.80) X10*6/uL Hgb 12.2 L (14.0-18.0) g/dl Hct 37.0 L (42.0-52.0) % MCV 84.7 (80.0-98.0) fL MCH 27.9 (27.0-33.0) pg MCHC 33.0 (31.0-36.0) g/dl RDW 13.4 (11.0-16.0) % Plt Count 325 (160-400) X10*3/uL MPV 10.0 (9.4-12.4) fL Immature Gran % (Auto) 0.1 (0.0-0.4) % Neut % (Auto) 51.9 (45-73) % Lymph % (Auto) 27.7 (20-40) % Billings % (Auto) 7.5 (2-11) % Eos % (Auto) 12.0 H (0-4) % Baso % (Auto) 0.8 (0-2) % Lymph # (Auto) 2.1 (1.2-4.9) X10*3/uL Billings # (Auto) 0.6 (0.1-1.2) X10*3/uL Eos # (Auto) 0.9 H (0.0-0.4) X10*3/uL Baso # (Auto) 0.1 (0.0-0.2) X10*3/uL Abs Immat Gran (auto) 0.01 (0.00-0.03) X10*3/uL Absolute Neuts (auto) 4.0 (2.0-8.3) x10*3/uL Absolute Nucleated RBC 0.000 (0.0-0.012) X10*3/uL Nucleated RBC % (auto) 0.0 (0.0-0.2) /100WBC Hold Purple Top SEE NOTE PT 13.1 (11.2-13.5) SEC INR 1.1 (0.9-1.1) VBG pH (7.32-7.43) VBG pCO2 mmHg VBG pO2 mmHg VBG HCO3 (22-26) mmol/L VBG O2 Saturation % VBG Base Excess mmol/L Sodium 135 (135-145) mmol/L Potassium 4.1 (3.3-5.1) mmol/L Chloride 98 (96-108) mmol/L Carbon Dioxide 28 (22-29) mmol/L Anion Gap 13 (12-20) BUN 25 H (9-16) mg/dL Creatinine 1.71 H (0.5-1.4) mg/dL Estim Creat Clear Calc 55.4 Estimated GFR 40 POC Glucose > 600 H* (60-115) mg/dL Random Glucose 500 H* (60-115) mg/dL Calcium 8.7 (8.4-10.2) mg/dL Magnesium 1.7 (1.6-2.6) mg/dL Total Bilirubin 0.3 (0.0-1.0) mg/dL AST 30 (5-37) U/L ALT 19 (0-40) U/L Alkaline Phosphatase 101 (39-117) U/L Troponin I High Sens 12.8 (<3.5-35.0) ng/L C-Reactive Protein 3.27 H (< or = 0.50) mg/dL NT-Pro-B Natriuret Pep 798.1 H (<300) pg/mL Total Protein 6.7 (6.5-8.0) g/dL Albumin 3.4 L (3.5-5.0) g/dL Beta-Hydroxybutyrate 0.05 (0.02-0.27) mmol/L Ethyl Alcohol < 10 mg/dL Influenza Type A (PCR) NEGATIVE (Negative) Influenza Type B (PCR) NEGATIVE (Negative) RSV RNA Qual (PCR) NEGATIVE (Negative) SARS-CoV-2 RNA (RT-PCR) NEGATIVE (Negative) 10/16/25 10/16/25 Range/Units 15:46 17:28 WBC (4.8-10.8) X10*3/uL RBC (4.60-5.80) X10*6/uL Hgb (14.0-18.0) g/dl Hct (42.0-52.0) % MCV (80.0-98.0) fL MCH (27.0-33.0) pg MCHC (31.0-36.0) g/dl RDW (11.0-16.0) % Plt Count (160-400) X10*3/uL MPV (9.4-12.4) fL Immature Gran % (Auto) (0.0-0.4) % Neut % (Auto) (45-73) % Lymph % (Auto) (20-40) % Billings % (Auto) (2-11) % Eos % (Auto) (0-4) % Baso % (Auto) (0-2) % Lymph # (Auto) (1.2-4.9) X10*3/uL Billings # (Auto) (0.1-1.2) X10*3/uL Eos # (Auto) (0.0-0.4) X10*3/uL Baso # (Auto) (0.0-0.2) X10*3/uL Abs Immat Gran (auto) (0.00-0.03) X10*3/uL Absolute Neuts (auto) (2.0-8.3) x10*3/uL Absolute Nucleated RBC (0.0-0.012) X10*3/uL Nucleated RBC % (auto) (0.0-0.2) /100WBC Hold Purple Top PT (11.2-13.5) SEC INR (0.9-1.1) VBG pH 7.49 H (7.32-7.43) VBG pCO2 36 mmHg VBG pO2 79 mmHg VBG HCO3 28 H (22-26) mmol/L VBG O2 Saturation 99.0 % VBG Base Excess 5.3 mmol/L Sodium (135-145) mmol/L Potassium (3.3-5.1) mmol/L Chloride (96-108) mmol/L Carbon Dioxide (22-29) mmol/L Anion Gap (12-20) BUN (9-16) mg/dL Creatinine (0.5-1.4) mg/dL Estim Creat Clear Calc Estimated GFR POC Glucose 351 H* (60-115) mg/dL Random Glucose (60-115) mg/dL Calcium (8.4-10.2) mg/dL Magnesium (1.6-2.6) mg/dL Total Bilirubin (0.0-1.0) mg/dL AST (5-37) U/L ALT (0-40) U/L Alkaline Phosphatase (39-117) U/L Troponin I High Sens (<3.5-35.0) ng/L C-Reactive Protein (< or = 0.50) mg/dL NT-Pro-B Natriuret Pep (<300) pg/mL Total Protein (6.5-8.0) g/dL Albumin (3.5-5.0) g/dL Beta-Hydroxybutyrate (0.02-0.27) mmol/L Ethyl Alcohol mg/dL Influenza Type A (PCR) (Negative) Influenza Type B (PCR) (Negative) RSV RNA Qual (PCR) (Negative) SARS-CoV-2 RNA (RT-PCR) (Negative) Independent Interpretation I performed an independent interpretation of an: EKG Interpretation: EKG at 14:26 shows sinus rhythm with frequent PVCs. No definite significant changes from an EKG of 10/04/2025 Discharge Plan Discharge Clinical Impression: Hyperglycemia, Asthma Patient Disposition: Home, Self-Care Additional Instructions: Please make sure that you take all of your regular medications. I have sent a prescription for albuterol that you may use with the your machine at home. You may use this every 4-6 hours as needed if you feel you are wheezing. Most importantly please make sure that you take your insulin. Make sure you take both your long-acting insulin every day and take your short-acting insulin 3 times a day with meals. Please make a follow up appointment with the [place] cardiology office. You have the contact information for this office ([facility]). Call on Saturday for a follow up appointment. Also please make sure that you follow up with your primary care doctor at the [facility]. Return to the emergency room if significantly worse. Prescriptions: New albuterol sulfate 2.5 mg /3 mL (0.083 %) solution for nebulization 2.5 mg inhalation Q4-6H PRN (Reason: shortness of breath or wheezing) Qty: 90 0RF No Action carvedilol 12.5 mg Tablet 12.5 mg PO BID Rx Instructions: must administer with a meal/food tamsulosin 0.4 mg Capsule 0.4 mg PO DAILY pantoprazole 40 mg Tablet,Delayed Release (Dr/Ec) 40 mg PO DAILY@0630 levothyroxine 50 mcg Capsule 50 mcg PO DAILY@0600 insulin degludec [Tresiba FlexTouch U-100] 100 unit/mL (3 mL) Insulin Pen 32 unit SUBCUT DAILY Trulicity 1.5 mg/0.5 mL pen injector 1.5 mg subcut TU insulin lispro [Humalog KwikPen Insulin] 100 unit/mL insulin pen See Protocol SUBCUT TIDAC Protocol: Insulin Correction Scale Less than or equal to 110 ---- Give (units): 0 111 to 150 Give (units): 0 151 to 200 Give (units): 2 201 to 250 Give (units): 4 251 to 300 Give (units): 6 301 to 350 Give (units): 8 Greater than 350 Give (units): 10 Call MD if Blood Glucose > : 350 gabapentin 100 mg capsule 100 mg PO TID aripiprazole 2 mg Tablet 2 mg PO DAILY torsemide 20 mg tablet 40 mg PO BID albuterol sulfate 2.5 mg /3 mL (0.083 %) solution for nebulization 2.5 mg Q6H PRN (Reason: Shortness Of Breath Or Wheezing) rosuvastatin 40 mg tablet 40 mg PO BEDTIME melatonin 3 mg Tablet 6 mg PO BEDTIME PRN (Reason: Insomnia) Qty: 60 0RF doxycycline monohydrate 100 mg Capsule 100 mg PO Q12H Qty: 8 0RF cefuroxime axetil 500 mg Tablet 500 mg PO BID Qty: 8 0RF sacubitril-valsartan [Entresto] 24-26 mg Tablet 1 tab PO BID Qty: 60 0RF Protocol: Hold for SBP< HOLD for SBP < : 90 Referrals: [facility] [Provider Group] [facility] [Provider Group] Cassandra Moses PA-C [Physician Dry Press Operator Helper, Internal Medicine] Print Language: Chinese
[2025-10-16 14:43] VITALS: BP 142/91; PULSE 85; PULSE 88; RESP 18; O2SAT 99
--- NOTE | 2025-10-16 15:01 | PC.NURSE ---
IV attempted by EMS x 3, ED RN x 1, and END STAPLER x 3 with no success. MD made aware. inventory assistant aware.
--- NOTE | 2025-10-16 15:23 | PC.NURSE ---
at the bedside attempting to obtain IV access.
--- OUTSIDE RECORDS SUMMARY | 2025-10-16 15:32 | XMS_ITS | Clinical Summary ---
Author Organization [facility] Address [address] [address] Phone Care Team Providers Care Body Specialist Name Role Phone Unavailable Primary Care Provider [...] to complete [place] [id number] UHC Medicare [place]HC Medicare Medicaid [place]
--- OUTSIDE RECORDS SUMMARY | 2025-10-16 15:32 | XMS_ITS | Clinical Summary ---
Author Organization [facility] Address [address] [place] [address] Phone Care Team Providers Care Oil Program Compliance Specialist Name Role Phone Cassandra Moses Primary Care [...] Description 08/26/2025 12:30 PM EDT Ancillary Procedure [facility] [address] [place] [address] Heart failure ([facility] V24, [facility] V28) from Last 3 Months Medical History Medical History Date Comments Diabetes mellitus ([facility] V24, [facility] V28) Social History Tobacco [...] (08/26/2025 2:06 PM EDT) Left Atrium Minor [place] 5.4 cm CV PACS Left Atrium Major [place] 5.3 cm CV PACS [place] Area Sys [...] S' 12 cm/s CV PACS RA Major [place] 4.8 cm CV PACS RA Major [place] Index 2.1 2.1 - 2.7 cm/m2 CV [...] system for comparison. Spoke with THAD Yanes [facility]. I asked her to leave a message [...] mg/dL LAB CHEMISTRY METHOD 11/16/2024 4:40 AM [facility] Triglycerides 189(H) 0 - 150 mg/dL LAB CHEMISTRY METHOD 11/16/2024 4:40 AM EST [facility] HDL 35(L) >=40 mg/dL LAB CHEMISTRY METHOD 11/16/2024 4:40 AM EST [facility] LDL Calculated 69 0 - 100 mg/dL LAB CHEMISTRY METHOD 11/16/2024 4:40 AM [facility] VLDL Cholesterol Rad 37.8 mg/dL LAB CHEMISTRY METHOD 11/16/2024 4:40 AM [facility] Non HDL Chol. (LDL+VLDL) 107 <145 mg/dL LAB CHEMISTRY METHOD 11/16/2024 4:40 AM [facility] Chol/HDL Ratio 4.1 0.0 - 4.4 LAB CHEMISTRY METHOD 11/16/2024 4:40 AM [facility] Blood Venous blood specimen / Unknown Venipuncture / Unknown 11/16/2024 3:55 AM EST 11/16/2024 3:59 AM EST Nan BOLANOS LAB BLOOD ORDERABLES Fi nal Result [facility] [address] [place] [address], * (ABNORMAL) Basic metabolic panel (11/16/2024 3:55 AM EST) Sodium 138 133 - 145 mmol/L LAB CHEMISTRY METHOD 11/16/2024 4:39 AM [facility] Potassium 3.7 3.5 - 5.5 mmol/L LAB CHEMISTRY METHOD 11/16/2024 4:39 AM [facility] Chloride 107 96 - 110 mmol/L LAB CHEMISTRY METHOD 11/16/2024 4:39 AM [facility] CO2 24 21 - 32 mmol/L LAB CHEMISTRY METHOD 11/16/2024 4:39 AM [facility] Anion Gap 7 3 - 11 LAB CHEMISTRY METHOD 11/16/2024 4:39 AM [facility] Glucose 157(H) 70 - 100 mg/dL LAB CHEMISTRY METHOD 11/16/2024 4:39 AM [facility] BUN 23 5 - 25 mg/dL LAB CHEMISTRY METHOD 11/16/2024 4:39 AM [facility] Creatinine 1.58(H) 0.70 - 1.30 mg/dL LAB CHEMISTRY METHOD 11/16/2024 4:39 AM [facility] eGFR 49(L) >=60 mL/min/1. 73m2 LAB CHEMISTRY METHOD 11/16/2024 4:39 AM EST [facility] Comment:Calculation based on the Chronic Kidney Disease Epidemiology Collaboration (CKD-EPI) equation refit without adjustment for race. BUN/Creatinine Ratio 14.6 LAB CHEMISTRY METHOD 11/16/2024 4:39 AM EST [facility] Calcium 8.2(L) 8.5 - 10.5 mg/dL LAB CHEMISTRY METHOD 11/16/2024 4:39 AM EST [facility] Blood Venous blood specimen / Unknown Venipuncture / Unknown 11/16/2024 3:55 AM EST 11/16/2024 3:59 AM EST us Antonio Doss MD LAB BLOOD ORDERABLES Final Res ult Performing Organization Address City/[facility]/ZIP Co de Phone Number [facility] [address] [place] [address], [place] [phone] * (ABNORMAL) Hemoglobin A1c (11/15/2024 1:54 PM EST) Hemoglobin A1C 13.5(H) <6.5 % LAB CHEMISTRY METHOD 11/16/2024 1:32 PM EST [facility] Mean Bld Glu Estim. 341 mg/dL LAB CHEMISTRY METHOD 11/16/2024 1:32 PM EST [facility] Blood Venous blood specimen / Unknown Venipuncture / Unknown 11/15/2024 1:54 PM EST 11/15/2024 2:08 PM EST us Nan BOLANOS LAB BLOOD ORDERABLES Fi nal Result [facility] [address] [place] [address], [place] [phone] from Last 3 Months or Most Recently Relevant to Health Maintenance [place] [address] [place] [address] [employer] Member Subscriber Plan / Payer (Ef fective 2025-Present) Name:Yanick Arita Relation to Subscriber:Self Name:Yanick Arita Payer ID:[id number] Group ID:[id number] Type:Not on file Address: [place] [address] [address] [phone] Advance Directives * Full Code - Default [...] currently active code status orders. Care Teams Oil Program Compliance Specialist Relationship Specialty Start Date End Date Cassandra Moses PA [address] [place] [address] PCP - General 07/12/22
[2025-10-16 15:47] LABS: MANUAL DIFF FLAG NO
[2025-10-16 15:47] LABS: Resp Syncy Virus RNA Qual PCR NEGATIVE (Negative); SARS COV2 PCR INHOUSE NEGATIVE (Negative)
--- NOTE | 2025-10-16 15:47 | PC.NURSE ---
MD Richard able to obtain left IJ IV with 20G. IV fluid running. Patient resting quietly. Family at the bedside. Educated family not to give patient anything to eat or drink. Call gu placed within reach. No signs of distress.
[2025-10-16 15:49] LABS: Hematocrit 37.0 % (42.0-52.0); Hemoglobin 12.2 g/dl (14.0-18.0); Imm Gran Abs Auto 0.01 X10*3/uL (0.00-0.03); Imm Gran Pct Auto 0.1 % (0.0-0.4); Lymphocytes Absolute Auto 2.1 X10*3/uL (1.2-4.9); Mean Corpuscular HGB Conc 33.0 g/dl (31.0-36.0); Mean Corpuscular Hemoglobin 27.9 pg (27.0-33.0); Mean Corpuscular Volume 84.7 fL (80.0-98.0); NRBC Abs Auto 0.000 X10*3/uL (0.0-0.012); NRBC Pct Auto 0.0 /100WBC (0.0-0.2); Platelet Count 325 X10*3/uL (160-400); Red Blood Count 4.37 X10*6/uL (4.60-5.80); White Blood Count 7.6 X10*3/uL (4.8-10.8)
[2025-10-16 15:49] LABS: Venous Blood Gas Refer to POC result
[2025-10-16 15:51] LABS: VBG HCO3 28 mmol/L (22-26); VBG O2 % Saturation 99.0 %
[2025-10-16 16:03] LABS: INTERNATIONAL NORM RATIO 1.1 (0.9-1.1); Prothrombin Time 13.1 SEC (11.2-13.5)
[2025-10-16 16:15] LABS: Alanine Aminotransferase 19 U/L (0-40); Albumin Level 3.4 g/dL (3.5-5.0); Alkaline Phosphatase 101 U/L (39-117); Anion Gap 13 (12-20); Aspartate Amino Transferase 30 U/L (5-37); Blood Urea Nitrogen 25 mg/dL (9-16); Calcium 8.7 mg/dL (8.4-10.2); Carbon Dioxide 28 mmol/L (22-29); Chloride 98 mmol/L (96-108); Creatinine Clr Calc Pharmacy 55.4; Estimated Glomerular Filt Rate 40; Magnesium 1.7 mg/dL (1.6-2.6); Potassium 4.1 mmol/L (3.3-5.1); Sodium 135 mmol/L (135-145); Total Protein 6.7 g/dL (6.5-8.0); Troponin-I High Sensitivity 12.8 ng/L (<3.5-35.0)
[2025-10-16] MEDS: Albuterol/Iprat 2.5/0.5MG 3 ML AMPUL.NEB INHALE (16:17)
[2025-10-16 16:18] VITALS: PULSE 85; RESP 16; O2SAT 99
[2025-10-16 16:22] VITALS: BP 154/89; PULSE 76; RESP 18; O2SAT 99
[2025-10-16 16:38] LABS: NT Pro B Type Natriuretic Pept 798.1 pg/mL (<300)
[2025-10-16 17:33] LABS: Glucose, Whole Blood 351 mg/dL (60-115)
[2025-10-16] MEDS: Lactated Ringers 1,000 ML 999 ML IV (17:44)
[2025-10-16 18:27] LABS: Troponin-I High Sensitivity 12.4 ng/L (<3.5-35.0)
[2025-10-16 18:54] VITALS: BP 154/89; PULSE 76; RESP 18; TEMP 36.6; O2SAT 99
== END 2025-10-16 18:55 | disposition home or self-care (01) ==
PROVIDERS: Physician Assistant Medical; Emergency Provider Emergency Medicine
DX: E11.65 Type 2 diabetes mellitus with hyperglycemia (principal); J45.909 Unspecified asthma, uncomplicated; R05.9 Cough, unspecified; M79.10 Myalgia, unspecified site; R07.9 Chest pain, unspecified; Z03.818 Encounter for observation for suspected exposure to other biological agents ruled out; I49.1 Atrial premature depolarization; N18.30 Chronic kidney disease, stage 3 unspecified; I73.9 Peripheral vascular disease, unspecified; Z79.85 Long-term (current) use of injectable non-insulin antidiabetic drugs; Z79.4 Long term (current) use of insulin; Z79.51 Long term (current) use of inhaled steroids; Z79.899 Other long term (current) drug therapy
CPT/HCPCS: 36415; 71045; 80053; 80307; 82010; 82803; 82947; 83735; 83880; 84484; 85025; 85610; 86140; 87637; 93005; 94640; 96360; 96361; 99285; J7120

== ENCOUNTER → 2025-10-16 14:22 | Outpatient (BNV) | payer OTHER, SELFPAY | PROVIDERS: Emergency Provider Emergency Medicine; Visit Provider Internal Medicine Cardiovascular Disease | DX: I49.3 Ventricular premature depolarization (principal); I45.4 Nonspecific intraventricular block | CPT/HCPCS: 93010 ==

== ENCOUNTER → 2025-10-16 16:04 | Outpatient (BNV) | payer OTHER, SELFPAY | PROVIDERS: Emergency Provider Emergency Medicine; Visit Provider Radiology Diagnostic Radiology | DX: I25.10 Atherosclerotic heart disease of native coronary artery without angina pectoris (principal) | CPT/HCPCS: 71045 ==